=== PATIENT | male | born 1965 | race Caucasian/White ===

== ENCOUNTER 2017-05-04 10:45 | Outpatient (RCR) | payer BC, MEDICARE, SELFPAY ==
[2017-04-13 00:47] VITALS: BP 74/56; PULSE 83; RESP 18; TEMP 36.3; BMI 22.4
--- NOTE | 2017-04-29 13:41 | WC ---
Call Received from [facility] (Andree) patient is using a 'Butt paste' over excoriated/irritated area. Original Order was for duoderm/gauze. Nurse reports the area is 'clearing-up'. A request for physician order to use this preparation. [employer] Operator contacted regarding same.
[2017-05-04 11:17] VITALS: BP 99/62; PULSE 77; RESP 18; TEMP 36.4; BMI 22.4
--- NOTE | 2017-05-04 15:17 | PN.PCM_ITS ---
Type of Wound Date of Service: 05/04/17 Chief Complaint: Right ischial pressure sore, Stage IV. History of Wound: Surgery 01/22/17 - Excision right ischial pressure sore, Stage IV, with partial ostectomy for osteomyelitis. Wound care - VAC. Operative culture - soft tisue, Corynebacterium striatum, Corynebacterium amycolatum/xer, and Anaerobic cocci, and the bone, Corynebacterium striatum and Anaerobic cocci. He was treated with Doxycycline perioperatively. Flagyl was added and he finished them. He was also placed on Diflucan because of his propensity to yeast infections from antibiotics and has finished them. Pathology - negative for osteomyelitis. Prealbumin from 01/23/17 was 15.8. Encourage nutritional supplementation with protein to help the healing process. CT Pelvis from 01/16/17 - osteomyelitis cannot be excluded. Today he denies any fever. His appetite is good. Progress of Wound: Improved. - Physical Exam Vital Signs Temp Pulse Resp BP 97.5 F L 77 18 99/62 05/04/17 11:17 05/04/17 11:17 05/04/17 11:17 05/04/17 11:17 Wound Measurements and Assessment WC - Nurse 1 - General Ulcer Measurement Start: 04/29/17 13:41 Freq: Status: Active Protocol: Activity Type Activity Date Activity User E-Sign Co-Sign Detail Recorded Client Recorded Date Recorded By Document 05/04/17 11:17 [facility] [id number] 05/04/17 11:30 [facility] 05/04/17 11:17 Wound Center Nurse 1 [Ulcer Assessment Protocol: SHAKA.WD.LOC] #1 RT ISCHIUM -Combined with other wound No -Current Size (cm) - Length 3 -Current Size (cm) - Width 7.4 -Current Size (cm) - Depth 0.9 -Total Square Cm 22.2 -Date of Last Picture (Recall this 05/04/17 field) -Photo Taken Yes -Epithelialization Small 1-33% -Tunneling Yes -Tunneling Position (O'clock) 12 -Tunneling Distance (cm) 1.7 -Undermining/Tunneling No -Circular Undermining No -Exudate Amt Medium (34-66%) -Exudate Type Sanguineous -Wound Margin Distinct, Outline Attached -Granulation Amt Large (67-100%) -Granulation Quality Red -Slough/Fibrin No -Necrosis Amt None Present (0 %) -Texture (Elizabeth-wound Skin Appearance) Scarring -Moisture (Elizabeth-wound Skin Appearance Dry/Scaly ) -Color (Elizabeth-wound Skin Appearance) Assessed -Temperature (Elizabeth-wound Skin No Abnormality Appearance) (Pt Warm) -Tenderness on Palpation (Elizabeth-wound No Skin Appearance) -Ulcer Cleansing Wound Cleanser -Foul Odor after Cleansing No -Anesthetic Used 4% Lidocaine Solution - Nurse 2 - General Ulcer CM Notes Start: 04/29/17 13:41 Freq: Status: Active Protocol: Activity Type Activity Date Activity User E-Sign Co-Sign Detail Recorded Client Recorded Date Recorded By Document 05/04/17 12:28 [id number] 05/04/17 12:29 05/04/17 12:28 Wound Center Nurse 2 [Procedure/Treatment] -Time 12:28 -Correct Patient Yes -Correct Side, Site, Position Yes -Correct Procedure Yes -Procedure Performed Yes -Type of Procedure Debridement -Clinical Debridement Muscle -Post Debridement Size (cm) - Length 3.0 -Post Debridement Size (cm) - Width 7.5 -Post Debridement Size (cm) - Depth 1.0 -Total Square Cm 22.50 -Wound/Ulcer Outcome Not Healed -Ulcer Cleansing Rinsed/ Irrigated with Saline -Foul Odor after Cleansing No -Bioengineered Tissue No -Cetacaine [place] No -Bleeding Controlled with Pressure -Treatment Response Procedure Tolerated Well [See Physician Procedure note for Specifics] Pain Scale: 0-10 Numeric [Pain] -Is Patient Pain Free? Yes Debridement Note Post-Debridement Measurements/Treatment - Nurse 2 - General Ulcer CM Notes Start: 04/29/17 13:41 Freq: Status: Active Protocol: Activity Type Activity Date Activity User E-Sign Co-Sign Detail Recorded Client Recorded Date Recorded By Document 05/04/17 12:28 [id number] 05/04/17 12:29 05/04/17 12:28 Wound Center Nurse 2 #1 RT ISCHIUM -Time 12:28 -Correct Patient Yes -Correct Side, Site, Position Yes -Correct Procedure Yes -Procedure Performed Yes -Type of Procedure Debridement -Clinical Debridement Muscle -Post Debridement Size (cm) - Length 3.0 -Post Debridement Size (cm) - Width 7.5 -Post Debridement Size (cm) - Depth 1.0 -Total Square Cm 22.50 -Wound/Ulcer Outcome Not Healed -Ulcer Cleansing Rinsed/ Irrigated with Saline -Foul Odor after Cleansing No -Bioengineered Tissue No -Cetacaine [place] No -Bleeding Controlled with Pressure -Treatment Response Procedure Tolerated Well Pain Scale: 0-10 Numeric Is Patient Pain Free? Yes Wound debrided: #1 Right ischial area. Laterality: Right Wound Grade/Stage: IV. Type of Debridement: Excisional debridement Anesthesia Used: 4% Lidocaine Solution Depth: Down to and including healthy tissue, in the subcutaneous layer, to muscle Percentage of wound debrided: 100 Instrument Used: 7mm curette Tissue Removed: subcutaneous tissue and muscle. Severity: Fat Layer Exposed - muscle is exposed. Amount of bleeding with debridement: Mild Bleeding Controlled with: Pressure Patient tolerated procedure well Assessment/Plan Assessment: 1. Right ischial pressure sore, stage IV. 2. Paraplegia. 3. History of osteomyelitis. 4. s/p excision right ischial pressure sore, Stage IV, with partial ostectomy for osteomyelitis. Plan: Continue the VAC to be changed three times per week at 150 mmHg continuous suction. He has finished the Doxycycline and the Flagyl from the operative cultures. He finished the Diflucan. Pathology was negative for osteomyelitis. Prealbumin from 01/23/17 was 15.8. Encourage nutritional supplementation with protein to help the healing process. Discussed with the patient about timing for possible wound closure with a myocutaneous flap. It would require 6 weeks of bedrest. He will think about the surgery and let me know. Patient needs a specialized cushion for his wheelchair. It is an alternative airwave cushion which helps with and is critical for avoiding pressure injury. It is being evaluated by the [employer]. Followup 3 weeks.
== END 2017-05-13 23:59 ==
LOC: WC 10:45
PROVIDERS: Family Provider Preventive Medicine Occupational Medicine; PCP Preventive Medicine Occupational Medicine; Visit Provider Surgery
DX: L89.214 Pressure ulcer of right hip, stage 4 (principal); G82.20 Paraplegia, unspecified
CPT/HCPCS: 11043; 11046; 97605

== ENCOUNTER 2017-06-08 11:15 | Outpatient (RCR) | payer BC, MEDICARE, SELFPAY ==
[2017-05-04 11:17] VITALS: BP 99/62
[2017-05-14 00:36] VITALS: PULSE 77; RESP 18; TEMP 36.4
[2017-05-25 10:46] VITALS: RESP 16; TEMP 36.5; BMI 22.4
--- NOTE | 2017-05-25 16:35 | PCM.WC.PN ---
Type of Wound Date of Service: 05/25/17 Chief Complaint: Right ischial pressure sore, Stage IV. History of Wound: Surgery 01/22/17 - Excision right ischial pressure sore, Stage IV, with partial ostectomy for osteomyelitis. Wound care - VAC. Operative culture - soft tisue, Corynebacterium striatum, Corynebacterium amycolatum/xer, and Anaerobic cocci, and the bone, Corynebacterium striatum and Anaerobic cocci. He was treated with Doxycycline perioperatively. Flagyl was added and he finished them. He was also placed on Diflucan because of his propensity to yeast infections from antibiotics and has finished them. Pathology - negative for osteomyelitis. Prealbumin from 01/23/17 was 15.8. Encourage nutritional supplementation with protein to help the healing process. CT Pelvis from 01/16/17 - osteomyelitis cannot be excluded. Today he denies any fever. His appetite is good. Progress of Wound: Improved. - Physical Exam Vital Signs Temp Pulse Resp BP 97.7 F L 77 16 99/62 05/25/17 10:46 05/14/17 00:36 05/25/17 10:46 05/04/17 11:17 Wound Measurements and Assessment - Nurse 1 - General Ulcer Measurement Start: 05/25/17 10:46 Freq: Status: Active Protocol: Activity Type Activity Date Activity User E-Sign Co-Sign Detail Recorded Client Recorded Date Recorded By Document 05/25/17 10:46 [facility] [id number] 05/25/17 11:07 [facility] 05/25/17 10:46 Wound Center Nurse 1 [Ulcer Assessment Protocol: SHAKA.WD.LOC] #1 RT ISCHIUM -Combined with other wound No -Current Size (cm) - Length 6.4 -Current Size (cm) - Width 2 -Current Size (cm) - Depth 1.8 -Total Square Cm 12.8 -Photo Taken No -Epithelialization Small 1-33% -Tunneling No -Undermining/Tunneling No -Exudate Amt Medium (34-66%) -Exudate Type Serosanguineous -Wound Margin Distinct, Outline Attached -Granulation Amt Large (67-100%) -Granulation Quality Red -Slough/Fibrin No -Necrosis Amt None Present (0 %) -Texture (Elizabeth-wound Skin Appearance) Scarring -Moisture (Elizabeth-wound Skin Appearance Assessed ) -Color (Elizabeth-wound Skin Appearance) Assessed -Temperature (Elizabeth-wound Skin No Abnormality Appearance) (Pt Warm) -Tenderness on Palpation (Elizabeth-wound No Skin Appearance) -Ulcer Cleansing Rinsed/ Irrigated with Saline -Foul Odor after Cleansing No -Anesthetic Used 4% Lidocaine Solution SHAKA - Nurse 2 - General Ulcer CM Notes Start: 05/25/17 10:46 Freq: Status: Active Protocol: Activity Type Activity Date Activity User E-Sign Co-Sign Detail Recorded Client Recorded Date Recorded By Document 05/25/17 11:23 [id number] 05/25/17 11:24 05/25/17 11:23 Wound Center Nurse 2 [Procedure/Treatment] -Time 11:23 -Correct Patient Yes -Correct Side, Site, Position Yes -Correct Procedure Yes -Procedure Performed Yes -Type of Procedure Debridement -Clinical Debridement Muscle -Post Debridement Size (cm) - Length 6.5 -Post Debridement Size (cm) - Width 2.0 -Post Debridement Size (cm) - Depth 1.8 -Total Square Cm 13.00 -Wound/Ulcer Outcome Not Healed -Ulcer Cleansing Rinsed/ Irrigated with Saline -Foul Odor after Cleansing No -Bioengineered Tissue No -Bleeding Controlled with Pressure -Treatment Response Procedure Tolerated Well [See Physician Procedure note for Specifics] Pain Scale: 0-10 Numeric [Pain] -Is Patient Pain Free? Yes Debridement Note Post-Debridement Measurements/Treatment - Nurse 2 - General Ulcer CM Notes Start: 05/25/17 10:46 Freq: Status: Active Protocol: Activity Type Activity Date Activity User E-Sign Co-Sign Detail Recorded Client Recorded Date Recorded By Document 05/25/17 11:23 [id number] 05/25/17 11:24 05/25/17 11:23 Wound Center Nurse 2 #1 RT ISCHIUM -Time 11:23 -Correct Patient Yes -Correct Side, Site, Position Yes -Correct Procedure Yes -Procedure Performed Yes -Type of Procedure Debridement -Clinical Debridement Muscle -Post Debridement Size (cm) - Length 6.5 -Post Debridement Size (cm) - Width 2.0 -Post Debridement Size (cm) - Depth 1.8 -Total Square Cm 13.00 -Wound/Ulcer Outcome Not Healed -Ulcer Cleansing Rinsed/ Irrigated with Saline -Foul Odor after Cleansing No -Bioengineered Tissue No -Bleeding Controlled with Pressure -Treatment Response Procedure Tolerated Well Pain Scale: 0-10 Numeric Is Patient Pain Free? Yes Wound debrided: #1 Right ischial area. Laterality: Right Wound Grade/Stage: IV. Type of Debridement: Excisional debridement Anesthesia Used: 4% Lidocaine Solution Depth: Down to and including healthy tissue, in the subcutaneous layer, to muscle Percentage of wound debrided: 100 Instrument Used: 7mm curette Tissue Removed: subcutaneous tissue and muscle. Severity: Fat Layer Exposed - muscle is exposed. Amount of bleeding with debridement: Mild Bleeding Controlled with: Pressure Patient tolerated procedure well Assessment/Plan Assessment: 1. Right ischial pressure sore, stage IV. 2. Paraplegia. 3. History of osteomyelitis. 4. s/p excision right ischial pressure sore, Stage IV, with partial ostectomy for osteomyelitis. Plan: Will change to Silver dressing changes daily and do a VAC holiday. He has finished the Doxycycline and the Flagyl from the operative cultures. He finished the Diflucan. Pathology was negative for osteomyelitis. Prealbumin from 01/23/17 was 15.8. Encourage nutritional supplementation with protein to help the healing process. Discussed with the patient about timing for possible wound closure with a myocutaneous flap. It would require 6 weeks of bedrest. He will think about the surgery and let me know. Followup 2 weeks. Because the ulcer continues to improve, will do the VAC holiday. In two weeks, if he is not having any trouble with the Silver dressing changes and the ulcer continues to show improvement, then will stop the VAC. Otherwise will restart the VAC.
[2017-06-08 11:46] VITALS: BP 95/64; PULSE 75; RESP 18; TEMP 37.4; BMI 22.4
--- NOTE | 2017-06-08 20:55 | PCM.WC.PN ---
Type of Wound Date of Service: 06/08/17 Chief Complaint: Right ischial pressure sore, Stage IV. History of Wound: Surgery 01/22/17 - Excision right ischial pressure sore, Stage IV, with partial ostectomy for osteomyelitis. Wound care - VAC. Operative culture - soft tisue, Corynebacterium striatum, Corynebacterium amycolatum/xer, and Anaerobic cocci, and the bone, Corynebacterium striatum and Anaerobic cocci. He was treated with Doxycycline perioperatively. Flagyl was added and he finished them. He was also placed on Diflucan because of his propensity to yeast infections from antibiotics and has finished them. Pathology - negative for osteomyelitis. Prealbumin from 01/23/17 was 15.8. Encourage nutritional supplementation with protein to help the healing process. CT Pelvis from 01/16/17 - osteomyelitis cannot be excluded. Today he denies any fever. His appetite is good. Progress of Wound: Improved. - Physical Exam Vital Signs Temp Pulse Resp BP 99.3 F H 75 18 95/64 06/08/17 11:46 06/08/17 11:46 06/08/17 11:46 06/08/17 11:46 Wound Measurements and Assessment WC - Nurse 1 - General Ulcer Measurement Start: 05/25/17 10:46 Freq: Status: Active Protocol: Activity Type Activity Date Activity User E-Sign Co-Sign Detail Recorded Client Recorded Date Recorded By Document 06/08/17 11:46 [id number] 06/08/17 11:49 06/08/17 11:46 Wound Center Nurse 1 [Ulcer Assessment] #1 RT ISCHIUM -Combined with other wound No -Current Size (cm) - Length 6.0 -Current Size (cm) - Width 3.0 -Current Size (cm) - Depth 2.0 -Total Square Cm 18.00 -Date of Last Picture (Recall this 06/08/17 field) -Photo Taken Yes -Epithelialization Small 1-33% -Tunneling No -Undermining/Tunneling No -Circular Undermining No -Classification - Thickness Full Thickness with Exposed Support Structure -Classification - Pressure Ulcer Stage 4 -Exudate Amt Large (67-100%) -Exudate Type Serosanguineous -Wound Margin Fibrotic Scar, Thickened Scar -Granulation Amt Large (67-100%) -Granulation Quality Red -Slough/Fibrin Yes -Necrosis Amt Small (1-33%) -Necrotic Tissue Type Adherent Slough -Structure Exposed Fascia Muscle Fat Layer Exposed -Texture (Elizabeth-wound Skin Appearance) Scarring -Moisture (Elizabeth-wound Skin Appearance No Abnormality ) -Color (Elizabeth-wound Skin Appearance) Erythema -Temperature (Elizabeth-wound Skin No Abnormality Appearance) (Pt Warm) -Tenderness on Palpation (Elizabeth-wound No Skin Appearance) -Ulcer Cleansing Rinsed/ Irrigated with Saline -Foul Odor after Cleansing No -Anesthetic Used 4% Lidocaine Solution [Edema Assessment] -Lower Limb Edema Present No WC - Nurse 2 - General Ulcer CM Notes Start: 05/25/17 10:46 Freq: Status: Active Protocol: Activity Type Activity Date Activity User E-Sign Co-Sign Detail Recorded Client Recorded Date Recorded By Document 06/08/17 12:10 [id number] 06/08/17 12:13 06/08/17 12:10 Wound Center Nurse 2 [Procedure/Treatment] #1 RT ISCHIUM -Time 12:11 -Correct Patient Yes -Correct Side, Site, Position Yes -Correct Procedure Yes -Procedure Performed Yes -Type of Procedure Debridement -Clinical Debridement Muscle -Post Debridement Size (cm) - Length 6.1 -Post Debridement Size (cm) - Width 3 -Post Debridement Size (cm) - Depth 2.0 -Total Square Cm 18.3 -Wound/Ulcer Outcome Not Healed -Ulcer Cleansing Rinsed/ Irrigated with Saline -Foul Odor after Cleansing No -Bioengineered Tissue No -Bleeding Controlled with Pressure -Treatment Response Procedure Tolerated Well [See Physician Procedure note for Specifics] Pain Scale: 0-10 Numeric [Pain] -Is Patient Pain Free? Yes Debridement Note Post-Debridement Measurements/Treatment - Nurse 2 - General Ulcer CM Notes Start: 05/25/17 10:46 Freq: Status: Active Protocol: Activity Type Activity Date Activity User E-Sign Co-Sign Detail Recorded Client Recorded Date Recorded By Document 05/25/17 11:23 [id number] 05/25/17 11:24 Document 06/08/17 12:10 [id number] 06/08/17 12:13 05/25/17 06/08/17 11:23 12:10 Wound Center Nurse 2 #1 RT ISCHIUM -Time 11:23 12:11 -Correct Patient Yes Yes -Correct Side, Site, Position Yes Yes -Correct Procedure Yes Yes -Procedure Performed Yes Yes -Type of Procedure Debridement Debridement -Clinical Debridement Subcutaneous Muscle -Post Debridement Size (cm) - Length 6.5 6.1 -Post Debridement Size (cm) - Width 2.0 3 -Post Debridement Size (cm) - Depth 1.8 2.0 -Total Square Cm 13.00 18.3 -Wound/Ulcer Outcome Not Healed Not Healed -Ulcer Cleansing Rinsed/ Rinsed/ Irrigated with Irrigated with Saline Saline -Foul Odor after Cleansing No No -Bioengineered Tissue No No -Bleeding Controlled with Pressure Pressure -Treatment Response Procedure Procedure Tolerated Well Tolerated Well Pain Scale: 0-10 Numeric Is Patient Pain Free? Yes Yes Wound debrided: #1 Right ischial area. Laterality: Right Wound Grade/Stage: IV. Type of Debridement: Excisional debridement Anesthesia Used: 4% Lidocaine Solution Depth: Down to and including healthy tissue, in the subcutaneous layer, to muscle Percentage of wound debrided: 100 Instrument Used: 7mm curette Tissue Removed: subcutaneous tissue and muscle. Severity: Fat Layer Exposed - muscle is exposed. Amount of bleeding with debridement: Mild Bleeding Controlled with: Pressure Patient tolerated procedure well Assessment/Plan Assessment: 1. Right ischial pressure sore, stage IV. 2. Paraplegia. 3. History of osteomyelitis. 4. s/p excision right ischial pressure sore, Stage IV, with partial ostectomy for osteomyelitis. Plan: The ulcer continues to improve. Continue Silver dressing changes daily and will stop the VAC. He has finished the Doxycycline and the Flagyl from the operative cultures. He finished the Diflucan. Pathology was negative for osteomyelitis. Prealbumin from 01/23/17 was 15.8. Encourage nutritional supplementation with protein to help the healing process. Discussed with the patient about timing for possible wound closure with a myocutaneous flap. It would require 6 weeks of bedrest. He will think about the surgery and let me know. Followup 3 weeks.
== END 2017-06-10 23:59 ==
LOC: WC 11:15
PROVIDERS: Family Provider Preventive Medicine Occupational Medicine; PCP Preventive Medicine Occupational Medicine; Visit Provider Surgery
DX: L89.214 Pressure ulcer of right hip, stage 4 (principal); Z86.19 Personal history of other infectious and parasitic diseases; G82.20 Paraplegia, unspecified
CPT/HCPCS: 11043

== ENCOUNTER → 2017-06-15 15:25 | Outpatient (CLI) | payer BC, MEDICARE, SELFPAY | PROVIDERS: Family Provider Preventive Medicine Occupational Medicine; PCP Preventive Medicine Occupational Medicine; Visit Provider Urology | DX: R30.0 Dysuria (principal); N31.9 Neuromuscular dysfunction of bladder, unspecified | CPT/HCPCS: 87086; 87088 ==

== ENCOUNTER 2017-07-06 11:10 | Outpatient (RCR) | payer BC, MEDICARE, SELFPAY ==
[2017-06-11 00:31] VITALS: BP 99/62; PULSE 75; RESP 18; TEMP 37.4; BMI 22.4
[2017-07-06 11:23] VITALS: BP 104/62; PULSE 74; RESP 16; TEMP 36.5; BMI 22.4
--- NOTE | 2017-07-06 22:18 | PCM.WC.PN ---
Type of Wound Date of Service: 07/06/17 Chief Complaint: Right ischial pressure sore, Stage IV. History of Wound: Surgery 01/22/17 - Excision right ischial pressure sore, Stage IV, with partial ostectomy for osteomyelitis. Wound care - Silver. Operative culture - soft tisue, Corynebacterium striatum, Corynebacterium amycolatum/xer, and Anaerobic cocci, and the bone, Corynebacterium striatum and Anaerobic cocci. He was treated with Doxycycline perioperatively. Flagyl was added and he finished them. He was also placed on Diflucan because of his propensity to yeast infections from antibiotics and has finished them. Pathology - negative for osteomyelitis. Prealbumin from 01/23/17 was 15.8. Encourage nutritional supplementation with protein to help the healing process. CT Pelvis from 01/16/17 - osteomyelitis cannot be excluded. Today he denies any fever. His appetite is good. Progress of Wound: Improved. - Physical Exam Vital Signs Temp Pulse Resp BP 97.7 F L 74 16 104/62 07/06/17 11:23 07/06/17 11:23 07/06/17 11:23 07/06/17 11:23 Debridement Note Post-Debridement Measurements/Treatment WC - Nurse 2 - General Ulcer CM Notes Start: 07/06/17 11:20 Freq: Status: Active Protocol: Activity Type Activity Date Activity User E-Sign Co-Sign Detail Recorded Client Recorded Date Recorded By Document 07/06/17 11:59 [id number] 07/06/17 12:00 07/06/17 11:59 Wound Center Nurse 2 #1 RT ISCHIUM -Time 11:59 -Correct Patient Yes -Correct Side, Site, Position Yes -Correct Procedure Yes -Procedure Performed Yes -Type of Procedure Debridement -Clinical Debridement Muscle -Post Debridement Size (cm) - Length 5 -Post Debridement Size (cm) - Width 2.4 -Post Debridement Size (cm) - Depth 0.1 -Total Square Cm 12.0 -Wound/Ulcer Outcome Not Healed -Ulcer Cleansing Rinsed/ Irrigated with Saline -Foul Odor after Cleansing No -Bioengineered Tissue No -Bleeding Controlled with Pressure -Treatment Response Procedure Tolerated Well Pain Scale: 0-10 Numeric Is Patient Pain Free? Yes Wound debrided: #1 Right ischial area. Laterality: Right Wound Grade/Stage: IV. Type of Debridement: Excisional debridement Anesthesia Used: 4% Lidocaine Solution Depth: Down to and including healthy tissue, in the subcutaneous layer, to muscle Percentage of wound debrided: 100 Instrument Used: 5mm curette, 7mm curette Tissue Removed: subcutaneous tissue. Severity: Fat Layer Exposed - muscle is exposed. Amount of bleeding with debridement: Mild Bleeding Controlled with: Pressure Patient tolerated procedure well Assessment/Plan Assessment: 1. Right ischial pressure sore, stage IV. 2. Paraplegia. 3. History of osteomyelitis. 4. s/p excision right ischial pressure sore, Stage IV, with partial ostectomy for osteomyelitis. Plan: The ulcer continues to improve. Continue Silver dressing changes daily as the VAC has been stopped. He has finished the Doxycycline and the Flagyl from the operative cultures. He finished the Diflucan. Pathology was negative for osteomyelitis. Prealbumin from 01/23/17 was 15.8. Encourage nutritional supplementation with protein to help the healing process. Discussed with the patient about timing for possible wound closure with a myocutaneous flap. It would require 6 weeks of bedrest. He will think about the surgery and let me know. Followup 3 weeks.
== END 2017-07-11 23:59 ==
LOC: WC 11:10
PROVIDERS: Family Provider Preventive Medicine Occupational Medicine; PCP Preventive Medicine Occupational Medicine; Visit Provider Surgery
DX: L89.214 Pressure ulcer of right hip, stage 4 (principal); G82.20 Paraplegia, unspecified
CPT/HCPCS: 11043

== ENCOUNTER 2017-07-27 08:45 | Outpatient (RCR) | payer BC, MEDICARE, SELFPAY ==
[2017-07-12 00:31] VITALS: BP 99/62; PULSE 74; RESP 16; TEMP 36.5; BMI 22.4
[2017-07-27 10:54] VITALS: BP 102/44; PULSE 88; RESP 16; TEMP 36.6; BMI 22.4
--- NOTE | 2017-07-27 23:08 | PCM.WC.PN ---
Type of Wound Date of Service: 07/27/17 Chief Complaint: Right ischial pressure sore, Stage IV. History of Wound: Surgery 01/22/17 - Excision right ischial pressure sore, Stage IV, with partial ostectomy for osteomyelitis. Wound care - VAC. Operative culture - soft tisue, Corynebacterium striatum, Corynebacterium amycolatum/xer, and Anaerobic cocci, and the bone, Corynebacterium striatum and Anaerobic cocci. He was treated with Doxycycline perioperatively. Flagyl was added and he finished them. He was also placed on Diflucan because of his propensity to yeast infections from antibiotics and has finished them. Pathology - negative for osteomyelitis. Prealbumin from 01/23/17 was 15.8. Encourage nutritional supplementation with protein to help the healing process. CT Pelvis from 01/16/17 - osteomyelitis cannot be excluded. Today he denies any fever. His appetite is good. Progress of Wound: Improved. - Physical Exam Vital Signs Temp Pulse Resp BP 97.8 F 88 16 102/44 L 07/27/17 10:54 07/27/17 10:54 07/27/17 10:54 07/27/17 10:54 Wound Measurements and Assessment WC - Nurse 1 - General Ulcer Measurement Start: 07/27/17 10:53 Freq: Status: Active Protocol: Activity Type Activity Date Activity User E-Sign Co-Sign Detail Recorded Client Recorded Date Recorded By Document 07/27/17 10:54 [facility] [id number] 07/27/17 11:11 [facility] 07/27/17 10:54 Wound Center Nurse 1 [Ulcer Assessment] #1 RT ISCHIUM -Combined with other wound No -Current Size (cm) - Length 5.8 -Current Size (cm) - Width 0.6 -Current Size (cm) - Depth 0.2 -Total Square Cm 3.48 -Date of Last Picture (Recall this 07/27/17 field) -Photo Taken Yes -Epithelialization Small 1-33% -Tunneling No -Undermining/Tunneling No -Circular Undermining No -Exudate Amt Medium (34-66%) -Exudate Type Serosanguineous -Wound Margin Distinct, Outline Attached -Granulation Amt Large (67-100%) -Granulation Quality Red -Slough/Fibrin No -Necrosis Amt None Present (0 %) -Texture (Elizabeth-wound Skin Appearance) Scarring -Moisture (Elizabeth-wound Skin Appearance Dry/Scaly ) -Color (Elizabeth-wound Skin Appearance) Assessed -Temperature (Elizabeth-wound Skin No Abnormality Appearance) (Pt Warm) -Tenderness on Palpation (Elizabeth-wound No Skin Appearance) -Ulcer Cleansing Rinsed/ Irrigated with Saline -Foul Odor after Cleansing No -Anesthetic Used 4% Lidocaine Solution - Nurse 2 - General Ulcer CM Notes Start: 07/27/17 10:53 Freq: Status: Active Protocol: Activity Type Activity Date Activity User E-Sign Co-Sign Detail Recorded Client Recorded Date Recorded By Document 07/27/17 11:49 [id number] 07/27/17 11:50 07/27/17 11:49 Wound Center Nurse 2 [Procedure/Treatment] -Time 11:49 -Correct Patient Yes -Correct Side, Site, Position Yes -Correct Procedure Yes -Procedure Performed Yes -Type of Procedure Debridement -Clinical Debridement Muscle -Post Debridement Size (cm) - Length 5.8 -Post Debridement Size (cm) - Width 1.7 -Post Debridement Size (cm) - Depth 0.3 -Total Square Cm 9.86 -Wound/Ulcer Outcome Not Healed -Ulcer Cleansing Rinsed/ Irrigated with Saline -Foul Odor after Cleansing No -Bioengineered Tissue No -Bleeding Controlled with Pressure -Treatment Response Procedure Tolerated Well [See Physician Procedure note for Specifics] Pain Scale: 0-10 Numeric [Pain] -Is Patient Pain Free? Yes Debridement Note Post-Debridement Measurements/Treatment - Nurse 2 - General Ulcer CM Notes Start: 07/27/17 10:53 Freq: Status: Active Protocol: Activity Type Activity Date Activity User E-Sign Co-Sign Detail Recorded Client Recorded Date Recorded By Document 07/27/17 11:49 [id number] 07/27/17 11:50 07/27/17 11:49 Wound Center Nurse 2 #1 RT ISCHIUM -Time 11:49 -Correct Patient Yes -Correct Side, Site, Position Yes -Correct Procedure Yes -Procedure Performed Yes -Type of Procedure Debridement -Clinical Debridement Muscle -Post Debridement Size (cm) - Length 5.8 -Post Debridement Size (cm) - Width 1.7 -Post Debridement Size (cm) - Depth 0.3 -Total Square Cm 9.86 -Wound/Ulcer Outcome Not Healed -Ulcer Cleansing Rinsed/ Irrigated with Saline -Foul Odor after Cleansing No -Bioengineered Tissue No -Bleeding Controlled with Pressure -Treatment Response Procedure Tolerated Well Pain Scale: 0-10 Numeric Is Patient Pain Free? Yes Wound debrided: #1 Right ischial area. Laterality: Right Wound Grade/Stage: IV. Type of Debridement: Excisional debridement Anesthesia Used: 4% Lidocaine Solution Depth: Down to and including healthy tissue, in the subcutaneous layer, to muscle, to bone - bone is palpable but not debrided. Percentage of wound debrided: 100 Instrument Used: 7mm curette Tissue Removed: subcutaneous tissue and muscle. Severity: Fat Layer Exposed - muscle is exposed. bone is palpable but not debrided. Amount of bleeding with debridement: Mild Bleeding Controlled with: Pressure Patient tolerated procedure well Assessment/Plan Assessment: 1. Right ischial pressure sore, stage IV. 2. Paraplegia. 3. History of osteomyelitis. 4. s/p excision right ischial pressure sore, Stage IV, with partial ostectomy for osteomyelitis. Plan: Continue the VAC to be changed three times per week at 150 mmHg continuous suction. He has finished the Doxycycline and the Flagyl from the operative cultures. He finished the Diflucan. Pathology was negative for osteomyelitis. Prealbumin from 01/23/17 was 15.8. Encourage nutritional supplementation with protein to help the healing process. Discussed with the patient about timing for possible wound closure with a myocutaneous flap. It would require 6 weeks of bedrest. He will think about the surgery and let me know. Patient needs a specialized cushion for his wheelchair. It is an alternative airwave cushion which helps with and is critical for avoiding pressure injury. It is being evaluated by the Insurance [employer]. Followup 3 weeks.
== END 2017-08-10 23:59 ==
LOC: WC 08:45
PROVIDERS: Family Provider Preventive Medicine Occupational Medicine; PCP Preventive Medicine Occupational Medicine; Visit Provider Surgery
DX: L89.214 Pressure ulcer of right hip, stage 4 (principal)
CPT/HCPCS: 11043

== ENCOUNTER 2017-08-17 10:10 | Outpatient (RCR) | payer BC, MEDICARE, SELFPAY ==
[2017-08-11 00:28] VITALS: BP 99/62; PULSE 88; RESP 16; TEMP 36.6; BMI 22.4
[2017-08-17 10:07] VITALS: BP 103/75; PULSE 88; RESP 16; TEMP 35.9; BMI 22.4
--- NOTE | 2017-08-17 21:42 | PN.PCM_ITS ---
Type of Wound Date of Service: 08/17/17 Chief Complaint: Right ischial pressure sore, Stage IV. History of Wound: Surgery 01/22/17 - Excision right ischial pressure sore, Stage IV, with partial ostectomy for osteomyelitis. Wound care - VAC. Operative culture - soft tisue, Corynebacterium striatum, Corynebacterium amycolatum/xer, and Anaerobic cocci, and the bone, Corynebacterium striatum and Anaerobic cocci. He was treated with Doxycycline perioperatively. Flagyl was added and he finished them. He was also placed on Diflucan because of his propensity to yeast infections from antibiotics and has finished them. Pathology - negative for osteomyelitis. Prealbumin from 01/23/17 was 15.8. Encourage nutritional supplementation with protein to help the healing process. CT Pelvis from 01/16/17 - osteomyelitis cannot be excluded. Today he denies any fever. His appetite is good. Progress of Wound: Improved. - Physical Exam Vital Signs Temp Pulse Resp BP 96.6 F L 88 16 103/75 08/17/17 10:07 08/17/17 10:07 08/17/17 10:07 08/17/17 10:07 Wound Measurements and Assessment WC - Nurse 1 - General Ulcer Measurement Start: 08/17/17 10:07 Freq: Status: Active Protocol: Activity Type Activity Date Activity User E-Sign Co-Sign Detail Recorded Client Recorded Date Recorded By Document 08/17/17 10:07 [facility] [id number] 08/17/17 10:19 [facility] 08/17/17 10:07 Wound Center Nurse 1 [Ulcer Assessment] #1 RT ISCHIUM -Combined with other wound No -Current Size (cm) - Length 6.5 -Current Size (cm) - Width 2.7 -Current Size (cm) - Depth 1.3 -Total Square Cm 17.55 -Date of Last Picture (Recall this 07/27/17 field) -Photo Taken No -Epithelialization Small 1-33% -Tunneling No -Undermining/Tunneling No -Circular Undermining No -Exudate Amt Large (67-100%) -Exudate Type Serosanguineous -Wound Margin Distinct, Outline Attached -Granulation Amt Large (67-100%) -Granulation Quality Red -Slough/Fibrin Yes -Necrosis Amt Small (1-33%) -Necrotic Tissue Type Adherent Slough -Texture (Elizabeth-wound Skin Appearance) Assessed -Moisture (Elizabeth-wound Skin Appearance Assessed ) Maceration Weeping -Color (Elizabeth-wound Skin Appearance) Assessed Palor -Temperature (Elizabeth-wound Skin No Abnormality Appearance) (Pt Warm) -Tenderness on Palpation (Elizabeth-wound Yes Skin Appearance) -Ulcer Cleansing Rinsed/ Irrigated with Saline -Foul Odor after Cleansing No -Anesthetic Used 4% Lidocaine Solution [Edema Assessment] -Lower Limb Edema Present No WC - Nurse 2 - General Ulcer CM Notes Start: 08/17/17 10:07 Freq: Status: Active Protocol: Activity Type Activity Date Activity User E-Sign Co-Sign Detail Recorded Client Recorded Date Recorded By Document 08/17/17 10:37 [facility] [id number] 08/17/17 10:39 [facility] 08/17/17 10:37 Wound Center Nurse 2 [Procedure/Treatment] #1 RT ISCHIUM -Time 10:38 -Correct Patient Yes -Correct Side, Site, Position Yes -Correct Procedure Yes -Procedure Performed Yes -Type of Procedure Debridement -Clinical Debridement Muscle -Post Debridement Size (cm) - Length 6.5 -Post Debridement Size (cm) - Width 2.8 -Post Debridement Size (cm) - Depth 1.3 -Total Square Cm 18.20 -Wound/Ulcer Outcome Not Healed -Ulcer Cleansing Rinsed/ Irrigated with Saline -Foul Odor after Cleansing No -Bioengineered Tissue No -Bleeding Controlled with Pressure -Treatment Response Procedure Tolerated Well [See Physician Procedure note for Specifics] Pain Scale: 0-10 Numeric [Pain] -Is Patient Pain Free? Yes Debridement Note Post-Debridement Measurements/Treatment - Nurse 2 - General Ulcer CM Notes Start: 08/17/17 10:07 Freq: Status: Active Protocol: Activity Type Activity Date Activity User E-Sign Co-Sign Detail Recorded Client Recorded Date Recorded By Document 08/17/17 10:37 JF [id number] 08/17/17 10:39 LIANE 08/17/17 10:37 Wound Center Nurse 2 #1 RT ISCHIUM -Time 10:38 -Correct Patient Yes -Correct Side, Site, Position Yes -Correct Procedure Yes -Procedure Performed Yes -Type of Procedure Debridement -Clinical Debridement Muscle -Post Debridement Size (cm) - Length 6.5 -Post Debridement Size (cm) - Width 2.8 -Post Debridement Size (cm) - Depth 1.3 -Total Square Cm 18.20 -Wound/Ulcer Outcome Not Healed -Ulcer Cleansing Rinsed/ Irrigated with Saline -Foul Odor after Cleansing No -Bioengineered Tissue No -Bleeding Controlled with Pressure -Treatment Response Procedure Tolerated Well Pain Scale: 0-10 Numeric Is Patient Pain Free? Yes Wound debrided: #1 Right ischial area. Laterality: Right Wound Grade/Stage: IV. Type of Debridement: Excisional debridement Anesthesia Used: 4% Lidocaine Solution Depth: Down to and including healthy tissue, in the subcutaneous layer, to muscle, to bone - bone is palpable but not debrided. Percentage of wound debrided: 100 Instrument Used: 7mm curette Tissue Removed: subcutaneous tissue and muscle. Severity: Fat Layer Exposed - muscle is exposed. bone is palpable but not debrided. Amount of bleeding with debridement: Mild Bleeding Controlled with: Pressure Patient tolerated procedure well Assessment/Plan Assessment: 1. Right ischial pressure sore, stage IV. 2. Paraplegia. 3. History of osteomyelitis. 4. s/p excision right ischial pressure sore, Stage IV, with partial ostectomy for osteomyelitis. Plan: Continue the VAC to be changed three times per week at 150 mmHg continuous suction. He has finished the Doxycycline and the Flagyl from the operative cultures. He finished the Diflucan. Pathology was negative for osteomyelitis. Prealbumin from 01/23/17 was 15.8. Encourage nutritional supplementation with protein to help the healing process. Discussed with the patient about timing for possible wound closure with a myocutaneous flap. It would require 6 weeks of bedrest. He will think about the surgery and let me know. Patient needs a specialized cushion for his wheelchair. It is an alternative airwave cushion which helps with and is critical for avoiding pressure injury. It is being evaluated by the Insurance [employer]. Followup 3 weeks.
== END 2017-09-10 23:59 ==
LOC: WC 10:10
PROVIDERS: Family Provider Preventive Medicine Occupational Medicine; PCP Preventive Medicine Occupational Medicine; Visit Provider Surgery
DX: L89.214 Pressure ulcer of right hip, stage 4 (principal); G82.20 Paraplegia, unspecified; Z98.890 Other specified postprocedural states
CPT/HCPCS: 11043

== ENCOUNTER 2017-09-14 15:49 | Outpatient (RCR) | payer BC, MEDICARE, SELFPAY ==
[2017-09-11 00:29] VITALS: BP 99/62; PULSE 88; RESP 16; TEMP 35.9; BMI 22.4
== END 2017-10-10 23:59 ==
LOC: WC 15:49
PROVIDERS: Family Provider Preventive Medicine Occupational Medicine; PCP Preventive Medicine Occupational Medicine; Visit Provider Surgery
DX: L89.214 Pressure ulcer of right hip, stage 4 (principal)
CPT/HCPCS: 11043; 11046

== ENCOUNTER → 2017-10-09 16:00 | Outpatient (CLI) | payer BC, MEDICARE, SELFPAY | PROVIDERS: Family Provider Preventive Medicine Occupational Medicine; PCP Preventive Medicine Occupational Medicine; Visit Provider Nurse Practitioner Adult Health | DX: N39.0 Urinary tract infection, site not specified (principal) | CPT/HCPCS: 87077; 87086; 87088; 87186 ==

== ENCOUNTER 2017-10-26 11:30 | Outpatient (RCR) | payer BC, MEDICARE, SELFPAY ==
[2017-10-12 12:05] VITALS: BP 84/58; PULSE 88; RESP 16; TEMP 36.6
--- NOTE | 2017-10-12 23:52 | PN.PCM_ITS ---
Type of Wound Date of Service: 10/12/17 Chief Complaint: Right ischial pressure sore, Stage IV. History of Wound: Surgery 01/22/17 - Excision right ischial pressure sore, Stage IV, with partial ostectomy for osteomyelitis. Wound care - Firbracol. Operative culture - soft tisue, Corynebacterium striatum, Corynebacterium amycolatum/xer, and Anaerobic cocci, and the bone, Corynebacterium striatum and Anaerobic cocci. He was treated with Doxycycline perioperatively. Flagyl was added and he finished them. He was also placed on Diflucan because of his propensity to yeast infections from antibiotics and has finished them. Pathology - negative for osteomyelitis. Prealbumin from 01/23/17 was 15.8. Encourage nutritional supplementation with protein to help the healing process. CT Pelvis from 01/16/17 - osteomyelitis cannot be excluded. Today he denies any fever. His appetite is good. Progress of Wound: Unchanged. - Physical Exam Vital Signs Temp Pulse Resp BP 97.8 F 88 16 84/58 L 10/12/17 12:05 10/12/17 12:05 10/12/17 12:05 10/12/17 12:05 Wound Measurements and Assessment WC - Nurse 1 - General Ulcer Measurement Start: 10/12/17 12:05 Freq: Status: Active Protocol: Activity Type Activity Date Activity User E-Sign Co-Sign Detail Recorded Client Recorded Date Recorded By Document 10/12/17 12:05 [id number] 10/12/17 12:12 10/12/17 12:05 Wound Center Nurse 1 [Ulcer Assessment] #1 RT ISCHIUM -Combined with other wound No -Current Size (cm) - Length 6.4 -Current Size (cm) - Width 2.4 -Current Size (cm) - Depth 1.1 -Total Square Cm 15.36 -Date of Last Picture (Recall this 10/12/17 field) -Photo Taken Yes -Tunneling No -Undermining/Tunneling No -Exudate Amt None Present (0 %) -Wound Margin Distinct, Outline Attached -Granulation Amt Medium (34-66%) -Granulation Quality Pale -Slough/Fibrin Yes -Necrosis Amt Medium (34-66%) -Necrotic Tissue Type Adherent Slough -Structure Exposed None/Limited to Skin Breakdown -Texture (Elizabeth-wound Skin Appearance) Assessed Scarring -Moisture (Elizabeth-wound Skin Appearance Assessed ) Maceration -Color (Elizabeth-wound Skin Appearance) No Abnormality -Temperature (Elizabeth-wound Skin No Abnormality Appearance) (Pt Warm) -Tenderness on Palpation (Elizabeth-wound No Skin Appearance) -Ulcer Cleansing Rinsed/ Irrigated with Saline -Foul Odor after Cleansing No -Anesthetic Used 4% Lidocaine Solution [Edema Assessment] -Lower Limb Edema Present NA - Nurse 2 - General Ulcer CM Notes Start: 10/12/17 12:05 Freq: Status: Active Protocol: Activity Type Activity Date Activity User E-Sign Co-Sign Detail Recorded Client Recorded Date Recorded By Document 10/12/17 13:00 [id number] 10/12/17 13:01 10/12/17 13:00 Wound Center Nurse 2 [Procedure/Treatment] #1 RT ISCHIUM -Time 13:01 -Correct Patient Yes -Correct Side, Site, Position Yes -Correct Procedure Yes -Procedure Performed Yes -Type of Procedure Debridement -Clinical Debridement Muscle -Post Debridement Size (cm) - Length 6.5 -Post Debridement Size (cm) - Width 2.5 -Post Debridement Size (cm) - Depth 1.1 -Total Square Cm 16.25 -Wound/Ulcer Outcome Not Healed -Ulcer Cleansing Rinsed/ Irrigated with Saline -Foul Odor after Cleansing No -Bioengineered Tissue No -Bleeding Controlled with Pressure -Treatment Response Procedure Tolerated Well [See Physician Procedure note for Specifics] Pain Scale: 0-10 Numeric [Pain] -Is Patient Pain Free? Yes Debridement Note Post-Debridement Measurements/Treatment - Nurse 2 - General Ulcer CM Notes Start: 10/12/17 12:05 Freq: Status: Active Protocol: Activity Type Activity Date Activity User E-Sign Co-Sign Detail Recorded Client Recorded Date Recorded By Document 10/12/17 13:00 JF [id number] 10/12/17 13:01 10/12/17 13:00 Wound Center Nurse 2 #1 RT ISCHIUM -Time 13:01 -Correct Patient Yes -Correct Side, Site, Position Yes -Correct Procedure Yes -Procedure Performed Yes -Type of Procedure Debridement -Clinical Debridement Muscle -Post Debridement Size (cm) - Length 6.5 -Post Debridement Size (cm) - Width 2.5 -Post Debridement Size (cm) - Depth 1.1 -Total Square Cm 16.25 -Wound/Ulcer Outcome Not Healed -Ulcer Cleansing Rinsed/ Irrigated with Saline -Foul Odor after Cleansing No -Bioengineered Tissue No -Bleeding Controlled with Pressure -Treatment Response Procedure Tolerated Well Pain Scale: 0-10 Numeric Is Patient Pain Free? Yes Wound debrided: #1 Right ischial area. Laterality: Right Wound Grade/Stage: IV. Type of Debridement: Excisional debridement Anesthesia Used: 4% Lidocaine Solution Depth: Down to and including healthy tissue, in the subcutaneous layer, to muscle, to bone - bone is palpable but not debrided. Percentage of wound debrided: 100 Instrument Used: 7mm curette Tissue Removed: subcutaneous tissue and muscle. Severity: Fat Layer Exposed - muscle is exposed. bone is palpable but not debrided. Amount of bleeding with debridement: Mild Bleeding Controlled with: Pressure Patient tolerated procedure well - A wound culture was obtained today. Assessment/Plan Assessment: 1. Right ischial pressure sore, stage IV. 2. Paraplegia. 3. History of osteomyelitis. 4. s/p excision right ischial pressure sore, Stage IV, with partial ostectomy for osteomyelitis. Plan: Continue Fibracol dressing changes daily. He has finished the Doxycycline and the Flagyl from the operative cultures. He finished the Diflucan. Another wound culture was done today. A positive culture will necessitate antibiotic therapy. Pathology was negative for osteomyelitis. Prealbumin from 01/23/17 was 15.8. Encourage nutritional supplementation with protein to help the healing process. Discussed with the patient about timing for possible wound closure with a myocutaneous flap. It would require 6 weeks of bedrest. He will think about the surgery and let me know. Patient needs a specialized cushion for his wheelchair. It is an alternative airwave cushion which helps with and is critical for avoiding pressure injury. It is being evaluated by the Insurance [employer]. Followup 2 weeks.
[2017-10-26 11:54] VITALS: BP 109/60; PULSE 97; RESP 16; TEMP 36
--- NOTE | 2017-10-26 23:57 | PCM.WC.PN ---
Type of Wound Date of Service: 10/26/17 Chief Complaint: Right ischial pressure sore, Stage IV. History of Wound: Surgery 01/22/17 - Excision right ischial pressure sore, Stage IV, with partial ostectomy for osteomyelitis. Wound care - Firbracol. Operative culture - soft tisue, Corynebacterium striatum, Corynebacterium amycolatum/xer, and Anaerobic cocci, and the bone, Corynebacterium striatum and Anaerobic cocci. He was treated with Doxycycline perioperatively. Flagyl was added and he finished them. He was also placed on Diflucan because of his propensity to yeast infections from antibiotics and has finished them. Recent wound culture from 10/12/17 showed Staphylococcus haemolyticus, Aerococcus viridans, and Gram positive etelvina. He was placed on Doxycycline and Augmentin. He states the antibiotics were making him sick. Pathology - negative for osteomyelitis. Prealbumin from 01/23/17 was 15.8. Encourage nutritional supplementation with protein to help the healing process. CT Pelvis from 01/16/17 - osteomyelitis cannot be excluded. Today he denies any fever. His appetite is good. Progress of Wound: Unchanged. - Physical Exam Vital Signs Temp Pulse Resp BP 96.8 F L 97 16 109/60 10/26/17 11:54 10/26/17 11:54 10/26/17 11:54 10/26/17 11:54 Wound Measurements and Assessment WC - Nurse 1 - General Ulcer Measurement Start: 10/12/17 12:05 Freq: Status: Active Protocol: Activity Type Activity Date Activity User E-Sign Co-Sign Detail Recorded Client Recorded Date Recorded By Document 10/26/17 11:54 [id number] 10/26/17 12:02 10/26/17 11:54 Wound Center Nurse 1 [Ulcer Assessment] #1 RT ISCHIUM -Combined with other wound No -Current Size (cm) - Length 7.9 -Current Size (cm) - Width 0.9 -Current Size (cm) - Depth 1.4 -Total Square Cm 7.11 -Photo Taken No -Epithelialization None Present -Tunneling Yes -Tunneling Position (O'clock) 5 -Tunneling Distance (cm) 6 -Undermining/Tunneling No -Circular Undermining No -Exudate Amt Large (67-100%) -Exudate Type Serosanguineous -Wound Margin Distinct, Outline Attached -Granulation Amt Small (1-33%) -Granulation Quality Isabella Red -Necrosis Amt None Present (0 %) -Necrotic Tissue Type Adherent Slough -Structure Exposed None/Limited to Skin Breakdown -Texture (Elizabeth-wound Skin Appearance) Assessed Scarring -Moisture (Elizabeth-wound Skin Appearance No Abnormality ) Assessed -Color (Elizabeth-wound Skin Appearance) No Abnormality Assessed -Temperature (Elizabeth-wound Skin No Abnormality Appearance) (Pt Warm) -Tenderness on Palpation (Elizabeth-wound No Skin Appearance) -Ulcer Cleansing Rinsed/ Irrigated with Saline -Foul Odor after Cleansing No -Anesthetic Used 5% Lidocaine Gel [Edema Assessment] -Lower Limb Edema Present NA WC - Nurse 2 - General Ulcer CM Notes Start: 10/12/17 12:05 Freq: Status: Active Protocol: Activity Type Activity Date Activity User E-Sign Co-Sign Detail Recorded Client Recorded Date Recorded By Document 10/26/17 13:17 [id number] 10/26/17 13:28 10/26/17 13:17 Wound Center Nurse 2 [Procedure/Treatment] #1 RT ISCHIUM -Time 13:17 -Correct Patient Yes -Correct Side, Site, Position Yes -Correct Procedure Yes -Procedure Performed Yes -Type of Procedure Debridement -Clinical Debridement Muscle -Post Debridement Size (cm) - Length 8.0 -Post Debridement Size (cm) - Width 1.0 -Post Debridement Size (cm) - Depth 1.4 -Total Square Cm 8.00 -Wound/Ulcer Outcome Not Healed -Ulcer Cleansing Rinsed/ Irrigated with Saline -Foul Odor after Cleansing No -Bioengineered Tissue No -Topical Lidocaine (%) 4 -Bleeding Controlled with Pressure -Treatment Response Procedure Tolerated Well [See Physician Procedure note for Specifics] Pain Scale: 0-10 Numeric [Pain] -Is Patient Pain Free? Yes Debridement Note Post-Debridement Measurements/Treatment - Nurse 2 - General Ulcer CM Notes Start: 10/12/17 12:05 Freq: Status: Active Protocol: Activity Type Activity Date Activity User E-Sign Co-Sign Detail Recorded Client Recorded Date Recorded By Document 10/12/17 13:00 [id number] 10/12/17 13:01 Document 10/26/17 13:17 [id number] 10/26/17 13:28 10/12/17 10/26/17 13:00 13:17 Wound Center Nurse 2 #1 RT ISCHIUM -Time 13:01 13:17 -Correct Patient Yes Yes -Correct Side, Site, Position Yes Yes -Correct Procedure Yes Yes -Procedure Performed Yes Yes -Type of Procedure Debridement Debridement -Clinical Debridement Muscle Muscle -Post Debridement Size (cm) - Length 6.5 8.0 -Post Debridement Size (cm) - Width 2.5 1.0 -Post Debridement Size (cm) - Depth 1.1 1.4 -Total Square Cm 16.25 8.00 -Wound/Ulcer Outcome Not Healed Not Healed -Ulcer Cleansing Rinsed/ Rinsed/ Irrigated with Irrigated with Saline Saline -Foul Odor after Cleansing No No -Bioengineered Tissue No No -Topical Lidocaine (%) 4 -Bleeding Controlled with Pressure Pressure -Treatment Response Procedure Procedure Tolerated Well Tolerated Well Pain Scale: 0-10 Numeric Is Patient Pain Free? Yes Yes Wound debrided: #1 Right ischial area. Laterality: Right Wound Grade/Stage: IV. Type of Debridement: Excisional debridement Anesthesia Used: 4% Lidocaine Solution Depth: Down to and including healthy tissue, in the subcutaneous layer, to muscle, to bone - bone is palpable but not debrided. Percentage of wound debrided: 100 Instrument Used: 7mm curette Tissue Removed: subcutaneous tissue and muscle. Severity: Fat Layer Exposed - muscle is exposed. bone is exposed but not debrided. Amount of bleeding with debridement: Mild Bleeding Controlled with: Pressure Patient tolerated procedure well Assessment/Plan Assessment: 1. Right ischial pressure sore, stage IV. 2. Paraplegia. 3. History of osteomyelitis. 4. s/p excision right ischial pressure sore, Stage IV, with partial ostectomy for osteomyelitis. Plan: Continue Fibracol dressing changes daily. He has finished the Doxycycline and the Flagyl from the operative cultures. He finished the Diflucan. Another wound culture was done on 10/12/17. It showed Staphylococcus haemolyticus, Aerococcus viridans, and Gram positive etelvina. He was started on Doxycycline and Augmentin. He states the antibiotics were making him sick and he stopped them. Recommend IV antibiotics. This will necessitate an operative excision. The bone is getting more palpable. Will schedule a CT Pelvis preop. Pathology was negative for osteomyelitis. Prealbumin from 01/23/17 was 15.8. Encourage nutritional supplementation with protein to help the healing process. Discussed with the patient about timing for possible wound closure with a myocutaneous flap. It would require 6 weeks of bedrest. He will think about the surgery and let me know. Right now he is agreeable to the operative excisional debridement at this time. Followup 3 weeks.
== END 2017-11-10 23:59 ==
LOC: WC 11:30
PROVIDERS: Family Provider Preventive Medicine Occupational Medicine; PCP Preventive Medicine Occupational Medicine; Visit Provider Surgery
DX: L89.214 Pressure ulcer of right hip, stage 4 (principal); G82.20 Paraplegia, unspecified; Z86.19 Personal history of other infectious and parasitic diseases
CPT/HCPCS: 11043; 87070; 87075; 87077; 87186; 87205

== ENCOUNTER → 2017-11-07 10:39 | Outpatient (CLI) | payer BC, MEDICARE, SELFPAY ==
--- NOTE | 2017-11-07 10:43 | CT_ITS ---
STUDY: CT PELVIS WITHOUT CONTRAST REASON FOR EXAM: Male, 52 years old. PRESSURE SORE RIGHT ISCHIUM STAGE IV RADIATION DOSAGE (If Supplied By Facility): CTDIvol = ( 25.83 ) mGy, DLP = ( 828.91 ) mGycm TECHNIQUE: Transaxial imaging of the pelvis was performed with oral contrast, and without intravenous administration of contrast material. Individualized dose optimization techniques were used for this CT. COMPARISON: 01/16/2017 FINDINGS: Normal urinary bladder. Normal visualized small intestine. Normal visualized colon. There is no pelvic fluid. There is no pelvic mass lesion or lymphadenopathy. Normal visualized pelvic arteries. Right buttocks and upper posterior thigh decubitus ulcer with granulation tissue and air pocket extending to the ischial tuberosity appear larger when compared to the previous study. There is osteosclerosis in the ischial tuberosity with irregular periosteal bone formation suggesting chronic osteomyelitis. CT/Pelvis without IV Contrast IMPRESSION: Right buttocks and upper posterior thigh decubitus ulcer with granulation tissue and air pocket extending to the ischial tuberosity appear larger when compared to the previous study. There is osteosclerosis in the ischial tuberosity with irregular periosteal bone formation suggesting chronic osteomyelitis. Electronically Signed: Fouzia Brenner MD at 10:50 EDT Tel , Service support ,
== END ==
PROVIDERS: Family Provider Preventive Medicine Occupational Medicine; PCP Preventive Medicine Occupational Medicine; Visit Provider Surgery
DX: L89.314 Pressure ulcer of right buttock, stage 4 (principal)
CPT/HCPCS: 72192

== ENCOUNTER 2017-11-17 06:29 | Day surgery (SDC) | payer BC, MEDICARE, SELFPAY ==
--- NOTE | 2017-11-16 12:17 | EKG12_ITS ---
Test Reason : PRE OP Blood Pressure : / mmHG Vent. Rate : 070 BPM Atrial Rate : 070 BPM P-R Int : 124 ms QRS Dur : 084 ms QT Int : 386 ms P-R-T Axes : 068 070 072 degrees QTc Int : 416 ms Normal sinus rhythm Normal ECG Confirmed by CHAY JACOBSON, RYLIE ([id number]), book or script editor SHAVON JOHNSON ([id number]) on 11/18/2017 11:00:16 AM Referred By: Addison Ken Confirmed By:RYLIE CARTWRIGHT MD
[2017-11-16 13:03] LABS: Hematocrit 40.6 % (40-54); Hemoglobin 13.6 g/dl (13.0-16.5); Mean Corp Hgb Conc 33.5 g/gl (32-36); Mean Corpuscular Hgb 27.9 pg (27.0-32.0); Mean Corpuscular Volume 83.2 fL (80-94); Mean Platelet Vol. 8.7 fl (6.2-12.0); Platelet Count 316 K/mm3 (150-450); RBC Distribution Width CV 13.7 % (11.6-14.6); RBC Distribution Width SD 41.3 fl (35.1-43.9); Red Blood Count 4.88 M/mm3 (4.6-6.2); Scan Indicated on CBC? Y/N NO; White Blood Count 9.4 K/mm3 (4.4-11.0)
[2017-11-16 13:14] LABS: Anion Gap 12 (5-15); BUN 23 mg/dL (7-18); BUN/Creat Ratio 56.5 RATIO (10-20); Calcium,Total 8.9 mg/dL (8.5-10.1); Chloride 109 mmol/L (98-107); Creatinine, Serum 0.41 mg/dL (0.70-1.30); EST Glomerular Filtration Rate 236 mL/min (>60); Est Glom Filt Rate - Afr Amer 286 mL/min (>60); Glucose 107 mg/dL (74-106); Potassium 3.9 mmol/L (3.5-5.1); Sodium Level 144 mmol/L (136-145)
[2017-11-17] VITALS (10 sets, daily range): BP systolic 86–135; BP diastolic 61–94; PULSE 70–104; RESP 14–18; TEMP 36.1–36.8; O2SAT 94–100; BMI 22.4
[2017-11-17] MEDS: Vancomycin IV 1,000 MG/200 ML BAG 200 MG IV (07:16)
--- NOTE | 2017-11-17 08:00 | PRES_PTH ---
PATIENT: ZORAIDA MOTA [place] [facility] [place][id number] AGE/SX: 52/M ROOM: RE11/17/[address]: Dr. Addison Ken MD : [id number] BED: DIS: 11/18/2017 SPEC #: [id number] RECD: 11/17/17 09:07 STATUS: BRIANNA RHONDA #: [id number] GREGORIA: 11/17/17 08:[address]: Addison Ken DEPT: SURGICAL PATHOLOGY RECD BY: Vidal Castillo ENTERED: 11/17/17 09:32 SP TYPE: PRESS SORE OTHR DR: MD Dr. Alexander Jose DO Tissues: A - Ischium, NOS B - Ischium, NOS Procedures: Decalcification bone/plaque Surgery Specimen Level IV HEADER OPERATION: Excision, pressure sore, partial ostectomy PRE-OP DIAGNOSIS: Right ischial pressure sore stage IV, paraplegia, history of osteomyelitis TISSUE SUBMITTED: A ? Right ischial pressure sore tissue, B - Right ischial pressure sore bone MICROSCOPIC DIAGNOSIS A. Right soft tissue ischial pressure sore: Focal ulceration, associated acute and chronic inflammation, granulation tissue reaction and reactive fibrosis. B. Right ischial bone, pressure sore: Pieces of bone with reactive changes, negative for acute osteomyelitis. ILDA:lucila 11/20/17 MICROSCOPIC DESCRIPTION Slides are reviewed. GROSS DESCRIPTION A - Received in fixative is one container labeled with the patient's name and designated right soft tissue ischial pressure sore. The specimen consists of an irregular piece of skin with underlying tissue measuring 4 x 1.5 x 1 cm. Also present in the container are detached pieces of camargo soft tissue measuring in aggregate 1 x 1 x 0.3 cm. The larger piece shows an extensive area of ulceration. Napper Grinder sections are submitted in two cassettes. B - Received in fixative is one container labeled with the patient's name and designated right ischial bone pressure sore. The specimen consists of multiple pieces of bone that in aggregate measure 2 x 1.5 x 0.4 cm. The entire specimen is submitted in one cassette after decalcification. / ILDA:lucila 11/17/17 TC:2 CPT: 37654 x2, 21674
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
--- NOTE | 2017-11-17 12:00 | CASEMGMT ---
RN DERRICK Face to Face with patient for initial transition planning/care coordination assessment. RN DERRICK introduced self and role at [facility]. Patient sitting in chair, alert and oriented, at bedside. Patient willing to participate in assessment and is able to answer all questions appropriately. Care providers, pharmacy, and demographics verified. See link attached. Patient wishes to discharge home with IV ATBs and HHC. [facility]. Referral sent to [facility] and they are able to accept the patient. Referral sent to [facility] to initiate IV ATB referral. Pt states he has no further needs or concerns at this time. CM to follow for discharge planning needs that may arise. Disposition Plan: Patient to discharge home with IV ATBs, HHC, family support, and follow-up plans in place.
--- NOTE | 2017-11-17 12:43 | NURSING ---
infant room teacher called at this time, aware of order for PICC line. Will call with an estimated time the nurse will arrive.
--- NOTE | 2017-11-17 12:55 | NURSING ---
Emma quinonez [facility] called, the nurse will be here between [id number] for PICC line placement.
--- NOTE | 2017-11-17 16:50 | PCM.RX.CS ---
Consult Pharmacy has been consulted to manage selected antiobiotic: Vancomycin Type of Consult: New start Suspected Infection: Osteomyelitis Prior Doses of Antibiotics Received/Current Regimen: Vancomycin 1000mg x1 Preop 11/17/17 Labs: Sodium 144 mmol/L (136-145) 11/16/17 12:05 Potassium 3.9 mmol/L (3.5-5.1) 11/16/17 12:05 Chloride 109 mmol/L (98-107) H 11/16/17 12:05 Carbon Dioxide 23.0 mmol/L (21.0-32.0) 11/16/17 12:05 Anion Gap 12 (5-15) 11/16/17 12:05 BUN 23 mg/dL (7-18) H 11/16/17 12:05 Creatinine 0.41 mg/dL (0.70-1.30) L 11/16/17 12:05 Est GFR (MDRD) Af Amer 286 mL/min (>60) 11/16/17 12:05 Est GFR (MDRD) Non-Af 236 mL/min (>60) 11/16/17 12:05 BUN/Creatinine Ratio 56.5 RATIO (10-20) H 11/16/17 12:05 Glucose 107 mg/dL (74-106) H 11/16/17 12:05 Microbiology: Microbiology 11/17/17 08:30 Bone - Ischium Gram Stain - Final 11/17/17 08:30 Tissue - Ischium Gram Stain - Final Weight used for dosin kg Estimated Creatinine Clearance: 100ml/min Goal Trough: 15-20 mcg/mL Pharmacy Plan for Drug Dosing: Recommend Vancomycin 750mg IV q8h starting on 11/17/17 at 1500. Est trough of 15-20. Draw trough level before the 4th dose Pharmacy Service will continue to monitor and adjust dosing as required. Follow-Up Labs: Trough Vancomycin Labs to be done on [date and time ordered]: Trough level 11/18/17 at 0630
--- NOTE | 2017-11-17 16:53 | PHA.PHARE_ITS ---
Consult Pharmacy has been consulted to manage selected antiobiotic: Vancomycin Type of Consult: New start Suspected Infection: Osteomyelitis Prior Doses of Antibiotics Received/Current Regimen: Vancomycin 1000mg x1 Preop 11/17/17 Labs: Sodium 144 mmol/L (136-145) 11/16/17 12:05 Potassium 3.9 mmol/L (3.5-5.1) 11/16/17 12:05 Chloride 109 mmol/L (98-107) H 11/16/17 12:05 Carbon Dioxide 23.0 mmol/L (21.0-32.0) 11/16/17 12:05 Anion Gap 12 (5-15) 11/16/17 12:05 BUN 23 mg/dL (7-18) H 11/16/17 12:05 Creatinine 0.41 mg/dL (0.70-1.30) L 11/16/17 12:05 Est GFR (MDRD) Af Amer 286 mL/min (>60) 11/16/17 12:05 Est GFR (MDRD) Non-Af 236 mL/min (>60) 11/16/17 12:05 BUN/Creatinine Ratio 56.5 RATIO (10-20) H 11/16/17 12:05 Glucose 107 mg/dL (74-106) H 11/16/17 12:05 Microbiology: Microbiology 11/17/17 08:30 Bone - Ischium Gram Stain - Final 11/17/17 08:30 Tissue - Ischium Gram Stain - Final Weight used for dosin kg Estimated Creatinine Clearance: 100ml/min Goal Trough: 15-20 mcg/mL Pharmacy Plan for Drug Dosing: Recommend Vancomycin 750mg IV q8h starting on 11/17/17 at 1500. Est trough of 15- 20. Draw trough level before the 4th dose Pharmacy Service will continue to monitor and adjust dosing as required. Follow-Up Labs: Trough Vancomycin Labs to be done on [date and time ordered]: Trough level 11/18/17 at 0630
[2017-11-17] MEDS: Lactated Ringers 1,000 ML 60 ML IV (18:05)
[2017-11-18 02:00] VITALS: BP 109/69; PULSE 104; RESP 16; TEMP 36.8; O2SAT 96
[2017-11-18 06:50] LABS: Hematocrit 37.7 % (40-54); Hemoglobin 12.4 g/dl (13.0-16.5); Mean Corp Hgb Conc 32.9 g/gl (32-36); Mean Corpuscular Hgb 27.8 pg (27.0-32.0); Mean Corpuscular Volume 84.5 fL (80-94); Mean Platelet Vol. 8.6 fl (6.2-12.0); Platelet Count 252 K/mm3 (150-450); RBC Distribution Width CV 13.9 % (11.6-14.6); Red Blood Count 4.46 M/mm3 (4.6-6.2); White Blood Count 11.8 K/mm3 (4.4-11.0)
[2017-11-18 06:55] LABS: Erythrocyte Sedimentation Rate 29 mm/hr (0-20)
[2017-11-18 06:57] LABS: Scan Indicated on CBC? Y/N NO
[2017-11-18 07:04] LABS: Vancomycin, Trough Level 11.5 ug/mL (5.0-15.0)
[2017-11-18 07:12] LABS: Anion Gap 10 (5-15); BUN 13 mg/dL (7-18); Calcium,Total 8.2 mg/dL (8.5-10.1); Chloride 115 mmol/L (98-107); Creatinine, Serum 0.42 mg/dL (0.70-1.30); EST Glomerular Filtration Rate 228 mL/min (>60); Est Glom Filt Rate - Afr Amer 276 mL/min (>60); Estimated Creatinine Clearance 180.22 ml/min; Glucose 89 mg/dL (74-106); Potassium 4.5 mmol/L (3.5-5.1); Prealbumin 21.3 mg/dL (20.0-40.0); Sodium Level 145 mmol/L (136-145)
[2017-11-18 08:00] VITALS: BP 111/76; PULSE 90; RESP 18; TEMP 36.7; O2SAT 98
--- NOTE | 2017-11-18 08:01 | PCM.RX.CS ---
Consult Pharmacy has been consulted to manage selected antiobiotic: Vancomycin Type of Consult: Follow-up Suspected Infection: Osteomyelitis Prior Doses of Antibiotics Received/Current Regimen: Currently receiving vancomycin 750mg IV q8h with doses given last night 11/17/17 at 22:13 and this morning 11/18/17 at 07:07 Labs: Sodium 145 mmol/L (136-145) 11/18/17 06:28 Potassium 4.5 mmol/L (3.5-5.1) 11/18/17 06:28 Chloride 115 mmol/L (98-107) H 11/18/17 06:28 Carbon Dioxide 20.0 mmol/L (21.0-32.0) L 11/18/17 06:28 Anion Gap 10 (5-15) 11/18/17 06:28 BUN 13 mg/dL (7-18) 11/18/17 06:28 Creatinine 0.42 mg/dL (0.70-1.30) L 11/18/17 06:28 Est GFR (MDRD) Af Amer 276 mL/min (>60) 11/18/17 06:28 Est GFR (MDRD) Non-Af 228 mL/min (>60) 11/18/17 06:28 BUN/Creatinine Ratio 31.0 RATIO (10-20) H 11/18/17 06:28 Glucose 89 mg/dL (74-106) 11/18/17 06:28 Vancomycin Trough 11.5 ug/mL (5.0-15.0) 11/18/17 06:28 Microbiology: Microbiology 11/17/17 08:30 Bone - Ischium Gram Stain - Final 11/17/17 08:30 Tissue - Ischium Gram Stain - Final Estimated Creatinine Clearance: 180 ml/min Goal Trough: 15-20 mcg/mL Pharmacy Plan for Drug Dosing: Trough obtained at 06:28 before this morning's dose was 11.5. Since this was below goal range of 15-20, recommend to increase dose to 1000mg IV q8h and draw another trough level before the 4th dose. Pharmacy Service will continue to monitor and adjust dosing as required. Follow-Up Labs: Trough Vancomycin Labs to be done on [date and time ordered]: 11/19/17 14:30
[2017-11-18] MEDS: Ascorbic Acid 500 MG Tablet PO (08:40)
[2017-11-18] MEDS: Multivitamins,Therapeutic Tablet 1 TABLET PO (08:41)
[2017-11-18] MEDS: Tolterodine Tartrate 4 MG CAP.SA PO (08:41)
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
--- NOTE | 2017-11-18 10:30 | CASEMGMT ---
TATYANA MEZA received updated script from doctor Ken for updated Vancomycin 1000mg q 8 hours order. Script faxed to [facility] and arranged for IV ATBs to be delivered to patients home for 3 pm when next dose is due. TATYANA MEZA updated [facility] regarding setup up for 3 pm today. CM will continue to follow this patient and plan for and safe discharge.
--- NOTE | 2017-11-18 12:30 | CASEMGMT ---
TATYANA MEZA confirmed with [facility] that IV atb will be delivered to patient's home by 1600. TATYANA MEZA updated [facility] that meds will be delivered at 1600 and [facility] will see patient at 1630.
--- NOTE | 2017-11-18 12:47 | PCM.PN.SRG ---
Subjective: Postop #1 Patient is resting comfortably. - Physical Exam General: Alert, Oriented x3 HEENT: PERRLA, EOMI Oral: Moist Mucosa Neck: Supple Abdomen: Soft, Non-Distended Skin: Ulcer/ Wound - right ischial pressure sore stable. No bleeding seen. Wound redressed with Silver dressing. Neurological: Cranial nerves II-XII grossly intact Psych/Mental Status: Normal Affect, Appropriate Vital Signs Temp Pulse Resp BP Pulse Ox 98.1 F 90 18 111/76 98 11/18/17 08:00 11/18/17 08:00 11/18/17 08:00 11/18/17 08:00 11/18/17 08:00 Oxygen Delivery Method Room Air Weight: 135 lb 0.001 oz Body Mass Index (BMI) 22.4 Intake and Output for Last 24 Hours 11/16/17 11/17/17 11/18/17 23:59 23:59 23:59 Intake Total 1761 / 1761 2612 / 2612 Output Total 1200 / 1200 1525 / 1525 Balance 561 / 561 1087 / 1087 Microbiology Past 72 Hours 11/17/17 08:30 Gram Stain - Final Bone - Ischium Wound Culture - Preliminary Gram negative etelvina 11/17/17 08:30 Gram Stain - Final Tissue - Ischium Wound Culture - Preliminary Gram negative etelvina Pathology - pending. Laboratory Tests Past 24 Hrs 11/18/17 11/18/17 11/18/17 06:28 06:28 06:28 WBC 11.8 H RBC 4.46 L Hgb 12.4 L Hct 37.7 L MCV 84.5 MCH 27.8 MCHC 32.9 RDW 13.9 RDW Differential 42.0 Plt Count 252 MPV 8.6 ESR 29 H Sodium 145 Potassium 4.5 Chloride 115 H Carbon Dioxide 20.0 L Anion Gap 10 BUN 13 Creatinine 0.42 L Estim Creat Clear Calc 180.22 Est GFR (MDRD) Af Amer 276 Est GFR (MDRD) Non-Af 228 BUN/Creatinine Ratio 31.0 H Glucose 89 Calcium 8.2 L C-React Prot Ext Range 14.30 H Prealbumin 21.3 Vancomycin Trough 11.5 Medical Necessity - Tobacco Use Smoking Status: Never smoker Assessment/Plan All Active Problems Infected wound (Acute) Complicated wound infection (Acute) Paraplegic immobility syndrome (Acute) Decubitus ulcer of right ischium, stage 3 (Acute) 1. Right ischial pressure sore, stage IV. 2. Paraplegia. 3. Osteomyelitis. 4. s/p excision right ischial pressure sore, Stage IV, with partial ostectomy for osteomyelitis. Ulcer is stable. No bleeding seen. Redressed with Aquacel Silver. Operative culture showed Gram negative etelvina thus far. Will send home on Levaquin. Preop culture showed Staphylococcus haemolyticus, Methicillin resistant and Aerococcus viridans. A PICC line was placed. He will be discharged home on Vancomycin for at least 2 weeks. Will reassess at the Wound Center in a couple of weeks. He states he gets yeast infections with antibiotics. Wrote a script for Diflucan. Family will do daily dressing changes with Silver dressings. Prealbumin was 21.3. Encourage nutritional supplementation with protein to help the healing process. Followup at the Wound Center in a couple of weeks. Will discuss possible HBO treatments for his osteomyelitis.
[2017-11-18 12:57] VITALS: BP 95/64; PULSE 97; RESP 18; TEMP 36.7; O2SAT 94
--- NOTE | 2017-11-18 12:58 | DCINST_ITS ---
You will use the following diet at home:: No restrictions, Other - encourage nutrtitional supplementation with protein to help the healing process. May shower in (days): 2 Weight Bearing Status: - - may be up in chair as long as he does pressure releases every 10 minutes for 10 seconds. Call your doctor if your incision/area has: Continuous Slow Oozing, Sudden Increased Bleeding, Increased Pain/ Swelling, Increased Redness, Foul Smelling Discharge, Swelling at the incision site Call your doctor if you observe: Fever of 101 or Higher, Coldness, Increased Pain, Shortness of breath, Chest pain, Calf discomfort, Uncontrolled pain Change Dressing in (Days):: 1 - aquacel silver dressing daily. Cleanse incision/area with: Soap & Water - may cleanse the wound with soap and water at the time of the dressing change. Allergies/Adverse Reactions: Allergies linezolid [From Zyvox] Allergy (Verified 11/11/17 10:00) Hives Penicillins Allergy (Verified 11/11/17 10:00) Hives all tapes Allergy (Uncoded 11/11/17 10:00) blisters Medications to take at Discharge Ascorbic Acid [Vitamin C] 500 mg PO DAILY@0800 12/19/16 Cholecalciferol (Vitamin D3) [Vitamin D3] 1,000 unit PO DAILY 12/19/16 Multivitamin [Daily Multiple Vitamin] 1 each PO DAILY 12/19/16 Oxybutynin Chloride [Ditropan Xl] 15 mg PO DAILY 12/19/16 Methenamine Hippurate 1 gm PO DAILY 11/11/17 Bisacodyl [Dulcolax] 10 mg RECTAL QODAY 11/17/17 Ensure Clear 120 ml PO TIDCM liquid 11/18/17 Fluconazole [Diflucan] 100 mg PO DAILY #30 tab 11/18/17 Gauze Bandage [Bandage Roll] 1 ea TP .QDAILY #30 bandage 11/18/17 Gauze Bandage [Gauze Pads] 1 ea TP .QDAILY #60 bandage 11/18/17 Vancomycin IV 750 mg IV Q8H 40 Days #120 vial 11/18/17 Vancomycin IV [Vancomycin] 1,000 mg IV Q8H 40 Days #120 bag 11/18/17 levoFLOXacin tablet [Levaquin tablet] 500 mg PO DAILY #21 tab 11/18/17 The following prescriptions were given: Fluconazole [Diflucan] 100 mg PO DAILY #30 tab Gauze Bandage [Bandage Roll] 1 ea TP .QDAILY #30 bandage Gauze Bandage [Gauze Pads] 1 ea TP .QDAILY #60 bandage levoFLOXacin tablet [Levaquin tablet] 500 mg PO DAILY #21 tab Vancomycin IV 750 mg IV Q8H 40 Days #120 vial Vancomycin IV [Vancomycin] 1,000 mg IV Q8H 40 Days #120 bag Primary Care Physician: Alexander Mendoza DO [Primary Care Provider] - Test Results: Test results from this visit will be discussed in further detail at your follow- up appointment, if applicable. Please Follow Up With: Addison Ken MD When: wound center in two weeks. Call [phone]. Proposed Discharge Date: 11/18/17
== END 2017-11-18 14:03 | disposition home health service (06) ==
LOC: SDC 06:30 → AC 06:31 → MS3 09:33
PROVIDERS: Family Provider Preventive Medicine Occupational Medicine; PCP Preventive Medicine Occupational Medicine; Visit Provider Surgery
PROC: (CPT 15946; principal; 2017-11-17 07:45)
DX: L89.214 Pressure ulcer of right hip, stage 4 (principal); G82.20 Paraplegia, unspecified; B96.89 Other specified bacterial agents as the cause of diseases classified elsewhere
CPT/HCPCS: 15946; 36415; 36569; 80048; 80202; 84134; 85027; 85652; 86140; 87070; 87075; 87077; 87102; 87186; 87205; 87206; 88305; 88311; 93005; 97802; J7050; J7120; A4216; J2405

== ENCOUNTER → 2017-11-29 11:08 | Outpatient (CLI) | payer BC, MEDICARE, SELFPAY ==
[2017-11-29 11:29] LABS: Erythrocyte Sedimentation Rate 40 mm/hr (0-20); Hematocrit 36.9 % (40-54); Hemoglobin 11.6 g/dl (13.0-16.5); Mean Corp Hgb Conc 31.4 g/gl (32-36); Mean Corpuscular Hgb 26.7 pg (27.0-32.0); Mean Corpuscular Volume 84.8 fL (80-94); Mean Platelet Vol. 8.4 fl (6.2-12.0); Platelet Count 235 K/mm3 (150-450); RBC Distribution Width CV 13.4 % (11.6-14.6); RBC Distribution Width SD 41.5 fl (35.1-43.9); Red Blood Count 4.35 M/mm3 (4.6-6.2); Scan Indicated on CBC? Y/N NO; White Blood Count 8.7 K/mm3 (4.4-11.0)
[2017-11-29 11:41] LABS: ALB/GLOB Ratio 0.8 RATIO (0.9-2.4); AST(SGOT) 15 U/L (15-37); Alanine Aminotransfer ALT/SGPT 26 U/L (16-61); Albumin, Serum 2.9 g/dL (3.2-5.0); Alkaline Phosphatase 79 U/L (45-117); Anion Gap 11 (5-15); BUN 21 mg/dL (7-18); BUN/Creat Ratio 39.2 RATIO (10-20); Calcium,Total 8.5 mg/dL (8.5-10.1); Chloride 109 mmol/L (98-107); Creatinine, Serum 0.54 mg/dL (0.70-1.30); EST Glomerular Filtration Rate 172 mL/min (>60); Est Glom Filt Rate - Afr Amer 208 mL/min (>60); Globulin 3.6 g/dL (2.2-4.2); Glucose 97 mg/dL (74-106); Potassium 3.8 mmol/L (3.5-5.1); Protein, Total 6.5 g/dL (6.4-8.2); Sodium Level 145 mmol/L (136-145); Vancomycin, Trough Level 22.4 ug/mL (5.0-15.0)
== END ==
PROVIDERS: Family Provider Preventive Medicine Occupational Medicine; PCP Preventive Medicine Occupational Medicine; Visit Provider Surgery
DX: L08.9 Local infection of the skin and subcutaneous tissue, unspecified (principal)
CPT/HCPCS: 36415; 80053; 80202; 85027; 85652; 86140

== ENCOUNTER 2017-11-30 11:45 | Outpatient (RCR) | payer BC, MEDICARE, SELFPAY ==
[2017-11-11 01:15] VITALS: BP 109/60; PULSE 97; RESP 16; TEMP 36
[2017-11-16 10:31] VITALS: BP 110/69; PULSE 87; RESP 18; TEMP 35.1
--- NOTE | 2017-11-16 17:12 | PCM.WC.PN ---
Type of Wound Date of Service: 11/16/17 Chief Complaint: Right ischial pressure sore, Stage IV. History of Wound: Surgery 01/22/17 - Excision right ischial pressure sore, Stage IV, with partial ostectomy for osteomyelitis. Wound care - Firbracol. Operative culture - soft tisue, Corynebacterium striatum, Corynebacterium amycolatum/xer, and Anaerobic cocci, and the bone, Corynebacterium striatum and Anaerobic cocci. He was treated with Doxycycline perioperatively. Flagyl was added and he finished them. He was also placed on Diflucan because of his propensity to yeast infections from antibiotics and has finished them. Recent wound culture from 10/12/17 showed Staphylococcus haemolyticus, Aerococcus viridans, and Gram positive etelvina. He was placed on Doxycycline and Augmentin. He states the antibiotics were making him sick. Pathology - negative for osteomyelitis. Prealbumin from 01/23/17 was 15.8. Encourage nutritional supplementation with protein to help the healing process. CT Pelvis was done on 11/07/17. It showed right buttocks and upper posterior thigh decubitus ulcer with granulation tissue and air pocket extending to the ischial tuberosity appear larger when compared to the previous study. There is osteosclerosis in the ischial tuberosity with irregular periosteal bone formation suggesting chronic osteomyelitis.. Today he denies any fever. His appetite is good. He has some questions for the surgery which is scheduled for tomorrow 11/17/17. Progress of Wound: Unchanged. - Physical Exam Vital Signs Temp Pulse Resp BP 95.1 F L 87 18 110/69 11/16/17 10:31 11/16/17 10:31 11/16/17 10:31 11/16/17 10:31 Wound Measurements and Assessment WC - Nurse 1 - General Ulcer Measurement Start: 11/16/17 10:30 Freq: Status: Active Protocol: Activity Type Activity Date Activity User E-Sign Co-Sign Detail Recorded Client Recorded Date Recorded By Document 11/16/17 10:31 DL [id number] 11/16/17 10:34 DL 11/16/17 10:31 Wound Center Nurse 1 [Ulcer Assessment] #1 RT ISCHIUM -Current Size (cm) - Length 6.3 -Current Size (cm) - Width 1.8 -Current Size (cm) - Depth 0.8 -Total Square Cm 11.34 -Photo Taken No -Exudate Amt Medium (34-66%) -Exudate Type Serosanguineous -Wound Margin Thickened & Rolled Under -Granulation Amt Large (67-100%) -Granulation Quality Red -Necrosis Amt Small (1-33%) -Necrotic Tissue Type Adherent Slough -Structure Exposed N/A -Texture (Elizabeth-wound Skin Appearance) Scarring -Moisture (Elizabeth-wound Skin Appearance No Abnormality ) -Color (Elizabeth-wound Skin Appearance) No Abnormality -Temperature (Elizabeth-wound Skin No Abnormality Appearance) (Pt Warm) -Ulcer Cleansing Rinsed/ Irrigated with Saline -Foul Odor after Cleansing No -Anesthetic Used 4% Lidocaine Solution - Nurse 2 - General Ulcer CM Notes Start: 11/16/17 10:30 Freq: Status: Active Protocol: Activity Type Activity Date Activity User E-Sign Co-Sign Detail Recorded Client Recorded Date Recorded By Document 11/16/17 11:19 [id number] 11/16/17 11:21 11/16/17 11:19 Wound Center Nurse 2 [Procedure/Treatment] -Time 11:20 -Correct Patient Yes -Correct Side, Site, Position Yes -Correct Procedure Yes -Procedure Performed Yes -Type of Procedure Debridement -Clinical Debridement Muscle -Post Debridement Size (cm) - Length 6 -Post Debridement Size (cm) - Width 1.8 -Post Debridement Size (cm) - Depth 0.8 -Total Square Cm 10.8 -Wound/Ulcer Outcome Not Healed -Ulcer Cleansing Rinsed/ Irrigated with Saline -Foul Odor after Cleansing No -Bioengineered Tissue No -Bleeding Controlled with Pressure -Treatment Response Procedure Tolerated Well [See Physician Procedure note for Specifics] Pain Scale: 0-10 Numeric [Pain] -Is Patient Pain Free? Yes Debridement Note Post-Debridement Measurements/Treatment - Nurse 2 - General Ulcer CM Notes Start: 11/16/17 10:30 Freq: Status: Active Protocol: Activity Type Activity Date Activity User E-Sign Co-Sign Detail Recorded Client Recorded Date Recorded By Document 11/16/17 11:19 JF [id number] 11/16/17 11:21 11/16/17 11:19 Wound Center Nurse 2 #1 RT ISCHIUM -Time 11:20 -Correct Patient Yes -Correct Side, Site, Position Yes -Correct Procedure Yes -Procedure Performed Yes -Type of Procedure Debridement -Clinical Debridement Muscle -Post Debridement Size (cm) - Length 6 -Post Debridement Size (cm) - Width 1.8 -Post Debridement Size (cm) - Depth 0.8 -Total Square Cm 10.8 -Wound/Ulcer Outcome Not Healed -Ulcer Cleansing Rinsed/ Irrigated with Saline -Foul Odor after Cleansing No -Bioengineered Tissue No -Bleeding Controlled with Pressure -Treatment Response Procedure Tolerated Well Pain Scale: 0-10 Numeric Is Patient Pain Free? Yes Wound debrided: #1 Right ischial area. Laterality: Right Wound Grade/Stage: IV. Type of Debridement: Excisional debridement Anesthesia Used: 4% Lidocaine Solution Depth: Down to and including healthy tissue, in the subcutaneous layer, to muscle, to bone - bone is palpable but not debrided. Percentage of wound debrided: 100 Instrument Used: 7mm curette Tissue Removed: subcutaneous tissue and muscle. Severity: Fat Layer Exposed - msucle is exposed. bone is palpable but not debrided. Amount of bleeding with debridement: Mild Bleeding Controlled with: Pressure Patient tolerated procedure well Assessment/Plan Assessment: 1. Right ischial pressure sore, stage IV. 2. Paraplegia. 3. History of osteomyelitis. 4. s/p excision right ischial pressure sore, Stage IV, with partial ostectomy for osteomyelitis. Plan: Continue Fibracol dressing changes daily. He has finished the Doxycycline and the Flagyl from the operative cultures. He finished the Diflucan. Another wound culture was done on 10/12/17. It showed Staphylococcus haemolyticus, Aerococcus viridans, and Gram positive etelvina. He was started on Doxycycline and Augmentin. He states the antibiotics were making him sick and he stopped them. Recommend IV antibiotics. This will necessitate an operative excision. The bone is getting more palpable. A CT Pelvis was done on 11/07/17. It was suspicious for osteomyelitis. Initial Pathology was negative for osteomyelitis. Prealbumin from 01/23/17 was 15.8. Encourage nutritional supplementation with protein to help the healing process. His operativef excision of the presure sore is scheduled for tomorrow 11/17/17. He had preop questions that were answered personally to his satisfactioin. Discussed with the patient about timing for possible wound closure with a myocutaneous flap. It would require 6 weeks of bedrest. He will think about the flap surgery and let me know after he sees how much healing can occur after his operative excison of the pressure sore tomorrow. Followup 2 weeks. Patient was informed of the risks and complications of the procedure including alternatives to surgery. These were discussed with him personally. He voices understanding and wishes to proceed.
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
[2017-11-30 13:43] VITALS: BP 89/55; PULSE 88; RESP 16; TEMP 36.8
--- NOTE | 2017-11-30 22:49 | PCM.WC.PN ---
Type of Wound Date of Service: 11/30/17 Chief Complaint: Right ischial pressure sore, Stage IV. History of Wound: Surgery 11/17/17 - Excision right ischial pressure sore, Stage IV, with partial ostectomy for osteomyelitis. Wound care - Silver. Operative culture, bone and soft tissue - Enterobacter cloacae. Preop culture showed Staphylococcus haemolyticus and Aerococcus viridans. He was discharged on Vancomycin, and Levaquin, and Diflucan. Pathology - negative for osteomyelitis. Prealbumin from 11/18/17 was 21.3. Encourage nutritional supplementation with protein to help the healing process. CT Pelvis was done on 11/07/17. It showed right buttocks and upper posterior thigh decubitus ulcer with granulation tissue and air pocket extending to the ischial tuberosity appear larger when compared to the previous study. There is osteosclerosis in the ischial tuberosity with irregular periosteal bone formation suggesting chronic osteomyelitis.. Today he denies fever. His appetite is good. Progress of Wound: Recent surgery from 11/17/17. - Physical Exam Vital Signs Temp Pulse Resp BP 98.2 F 88 16 89/55 L 11/30/17 13:43 11/30/17 13:43 11/30/17 13:43 11/30/17 13:43 Wound Measurements and Assessment WC - Nurse 1 - General Ulcer Measurement Start: 11/16/17 10:30 Freq: Status: Active Protocol: Activity Type Activity Date Activity User E-Sign Co-Sign Detail Recorded Client Recorded Date Recorded By Document 11/30/17 13:43 [facility] [id number] 11/30/17 13:51 [facility] 11/30/17 13:43 Wound Center Nurse 1 [Ulcer Assessment] #1 RT ISCHIUM- POST OP -Combined with other wound No -Current Size (cm) - Length 8 -Current Size (cm) - Width 1.8 -Current Size (cm) - Depth 1.7 -Total Square Cm 14.4 -Date of Last Picture (Recall this 11/30/17 field) -Photo Taken Yes -Epithelialization None Present -Tunneling No -Undermining/Tunneling No -Circular Undermining No -Exudate Amt Large (67-100%) -Exudate Type Serosanguineous -Wound Margin Distinct, Outline Attached -Granulation Amt Large (67-100%) -Granulation Quality Red -Slough/Fibrin Yes -Necrosis Amt Small (1-33%) -Necrotic Tissue Type Adherent Slough -Structure Exposed Bone -Texture (Elizabeth-wound Skin Appearance) Scarring -Moisture (Elizabeth-wound Skin Appearance Assessed ) -Color (Elizabeth-wound Skin Appearance) Erythema -Temperature (Elizabeth-wound Skin No Abnormality Appearance) (Pt Warm) -Tenderness on Palpation (Elizabeth-wound No Skin Appearance) -Ulcer Cleansing Rinsed/ Irrigated with Saline -Foul Odor after Cleansing No -Anesthetic Used 4% Lidocaine Solution - Nurse 2 - General Ulcer CM Notes Start: 11/16/17 10:30 Freq: Status: Active Protocol: Activity Type Activity Date Activity User E-Sign Co-Sign Detail Recorded Client Recorded Date Recorded By Document 11/30/17 14:25 [id number] 11/30/17 14:26 11/30/17 14:25 Wound Center Nurse 2 [Procedure/Treatment] -Time 14:25 -Correct Patient Yes -Correct Side, Site, Position Yes -Correct Procedure Yes -Procedure Performed Yes -Type of Procedure Debridement -Clinical Debridement Muscle -Post Debridement Size (cm) - Length 8.1 -Post Debridement Size (cm) - Width 1.8 -Post Debridement Size (cm) - Depth 1.7 -Total Square Cm 14.58 -Wound/Ulcer Outcome Not Healed -Ulcer Cleansing Rinsed/ Irrigated with Saline -Foul Odor after Cleansing No -Bioengineered Tissue No -Bleeding Controlled with Pressure -Treatment Response Procedure Tolerated Well [See Physician Procedure note for Specifics] Pain Scale: 0-10 Numeric [Pain] -Is Patient Pain Free? Yes Debridement Note Post-Debridement Measurements/Treatment - Nurse 2 - General Ulcer CM Notes Start: 11/16/17 10:30 Freq: Status: Active Protocol: Activity Type Activity Date Activity User E-Sign Co-Sign Detail Recorded Client Recorded Date Recorded By Document 11/16/17 11:19 [id number] 11/16/17 11:21 Document 11/30/17 14:25 [id number] 11/30/17 14:26 11/16/17 11/30/17 11:19 14:25 Wound Center Nurse 2 #1 RT ISCHIUM- POST OP -Time 11:20 14:25 -Correct Patient Yes Yes -Correct Side, Site, Position Yes Yes -Correct Procedure Yes Yes -Procedure Performed Yes Yes -Type of Procedure Debridement Debridement -Clinical Debridement Muscle Muscle -Post Debridement Size (cm) - Length 6 8.1 -Post Debridement Size (cm) - Width 1.8 1.8 -Post Debridement Size (cm) - Depth 0.8 1.7 -Total Square Cm 10.8 14.58 -Wound/Ulcer Outcome Not Healed Not Healed -Ulcer Cleansing Rinsed/ Rinsed/ Irrigated with Irrigated with Saline Saline -Foul Odor after Cleansing No No -Bioengineered Tissue No No -Bleeding Controlled with Pressure Pressure -Treatment Response Procedure Procedure Tolerated Well Tolerated Well Pain Scale: 0-10 Numeric Is Patient Pain Free? Yes Yes Wound debrided: #1 Right ischial area. Laterality: Right Wound Grade/Stage: IV. Type of Debridement: Excisional debridement Anesthesia Used: 4% Lidocaine Solution Depth: Down to and including healthy tissue, in the subcutaneous layer, to muscle, to bone - bone is exposed but not debrided. Percentage of wound debrided: 100 Instrument Used: 7mm curette Tissue Removed: subcutaneous tissue and muscle. Severity: Fat Layer Exposed - muscle is exposed. bone is exposed but not debrided. Amount of bleeding with debridement: Mild Bleeding Controlled with: Pressure Patient tolerated procedure well Assessment/Plan Assessment: 1. Right ischial pressure sore, stage IV. 2. Paraplegia. 3. History of osteomyelitis. 4. s/p excision right ischial pressure sore, Stage IV, with partial ostectomy for osteomyelitis. Plan: Continue Silver dressing changes daily. His operative cultures in soft tissue and bone showed Enterobacter cloacae. Combined with the preop cultures that showed Staphylococcus haemolyticus and Aerococcus viridans, he was discharged on Vancomycin, Levaquin, and Diflucan. A CT Pelvis was done on 11/07/17. It was suspicious for osteomyelitis. Pathology was negative for osteomyelitis. Prealbumin from 11/18/17 was 21.3. Encourage nutritional supplementation with protein to help the healing process. Followup 3 weeks.
== END 2017-12-11 23:59 ==
LOC: WC 11:45
PROVIDERS: Family Provider Preventive Medicine Occupational Medicine; PCP Preventive Medicine Occupational Medicine; Visit Provider Surgery
DX: L89.214 Pressure ulcer of right hip, stage 4 (principal); G82.20 Paraplegia, unspecified; Z86.19 Personal history of other infectious and parasitic diseases
CPT/HCPCS: 11043

== ENCOUNTER 2017-12-07 11:26 | Outpatient (RCR) | payer BC, MEDICARE, SELFPAY ==
[2017-11-23 15:55] LABS: Hematocrit 36.4 % (40-54); Hemoglobin 11.5 g/dl (13.0-16.5); Mean Corp Hgb Conc 31.6 g/gl (32-36); Mean Corpuscular Volume 85.4 fL (80-94); Mean Platelet Vol. 8.7 fl (6.2-12.0); Platelet Count 242 K/mm3 (150-450); RBC Distribution Width CV 13.9 % (11.6-14.6); RBC Distribution Width SD 43.5 fl (35.1-43.9); Red Blood Count 4.26 M/mm3 (4.6-6.2); Scan Indicated on CBC? Y/N NO; White Blood Count 9.5 K/mm3 (4.4-11.0)
[2017-11-23 16:01] LABS: Erythrocyte Sedimentation Rate 45 mm/hr (0-20)
[2017-11-23 16:07] LABS: Vancomycin, Trough Level 30.4 ug/mL (5.0-15.0)
[2017-11-23 16:08] LABS: ALB/GLOB Ratio 0.8 RATIO (0.9-2.4); AST(SGOT) 22 U/L (15-37); Alanine Aminotransfer ALT/SGPT 31 U/L (16-61); Albumin, Serum 2.9 g/dL (3.2-5.0); Alkaline Phosphatase 73 U/L (45-117); Anion Gap 12 (5-15); BUN 21 mg/dL (7-18); BUN/Creat Ratio 27.6 RATIO (10-20); Calcium,Total 8.4 mg/dL (8.5-10.1); Chloride 108 mmol/L (98-107); Creatinine, Serum 0.76 mg/dL (0.70-1.30); EST Glomerular Filtration Rate 115 mL/min (>60); Est Glom Filt Rate - Afr Amer 139 mL/min (>60); Globulin 3.5 g/dL (2.2-4.2); Glucose 142 mg/dL (74-106); Potassium 3.6 mmol/L (3.5-5.1); Protein, Total 6.4 g/dL (6.4-8.2); Sodium Level 144 mmol/L (136-145)
[2017-12-07 12:32] LABS: Hematocrit 39.5 % (40-54); Hemoglobin 12.9 g/dl (13.0-16.5); Mean Corp Hgb Conc 32.7 g/gl (32-36); Mean Corpuscular Hgb 27.4 pg (27.0-32.0); Mean Platelet Vol. 8.9 fl (6.2-12.0); Platelet Count 279 K/mm3 (150-450); RBC Distribution Width CV 13.7 % (11.6-14.6); RBC Distribution Width SD 41.8 fl (35.1-43.9); White Blood Count 7.4 K/mm3 (4.4-11.0)
[2017-12-07 12:34] LABS: Scan Indicated on CBC? Y/N NO
[2017-12-07 12:44] LABS: Vancomycin, Trough Level 13.6 ug/mL (5.0-15.0)
[2017-12-07 12:46] LABS: ALB/GLOB Ratio 0.9 RATIO (0.9-2.4); AST(SGOT) 12 U/L (15-37); Alanine Aminotransfer ALT/SGPT 23 U/L (16-61); Albumin, Serum 3.4 g/dL (3.2-5.0); Alkaline Phosphatase 94 U/L (45-117); Anion Gap 12 (5-15); BUN 27 mg/dL (7-18); Calcium,Total 8.6 mg/dL (8.5-10.1); Chloride 105 mmol/L (98-107); Creatinine, Serum 0.71 mg/dL (0.70-1.30); EST Glomerular Filtration Rate 124 mL/min (>60); Est Glom Filt Rate - Afr Amer 150 mL/min (>60); Globulin 3.7 g/dL (2.2-4.2); Glucose 164 mg/dL (74-106); Potassium 3.5 mmol/L (3.5-5.1); Protein, Total 7.1 g/dL (6.4-8.2); Sodium Level 142 mmol/L (136-145)
[2017-12-07 12:49] LABS: Erythrocyte Sedimentation Rate 34 mm/hr (0-20)
== END 2017-12-11 23:59 | disposition home health service (06) ==
LOC: HHLAB 11:26
PROVIDERS: Family Provider Preventive Medicine Occupational Medicine; PCP Preventive Medicine Occupational Medicine; Visit Provider Surgery
DX: L08.9 Local infection of the skin and subcutaneous tissue, unspecified (principal)
CPT/HCPCS: 80053; 80202; 85027; 85652; 86140

== ENCOUNTER 2017-12-28 11:45 | Outpatient (RCR) | payer BC, MEDICARE, SELFPAY ==
[2017-12-12 01:18] VITALS: BP 89/55; PULSE 88; RESP 16; TEMP 36.8
[2017-12-28 12:45] VITALS: BP 110/70; PULSE 83; RESP 16; TEMP 35.8
--- NOTE | 2017-12-28 22:57 | PN.PCM_ITS ---
Type of Wound Date of Service: 12/28/17 Chief Complaint: Right ischial pressure sore, Stage IV. History of Wound: Surgery 11/17/17 - Excision right ischial pressure sore, Stage IV, with partial ostectomy for osteomyelitis. Wound care - Silver. Operative culture, bone and soft tissue - Enterobacter cloacae. Preop culture showed Staphylococcus haemolyticus and Aerococcus viridans. He was discharged on Vancomycin, and Levaquin, and Diflucan. He has finished the Vancomycin. He is finishing the Levaquin. Will remove PICC line today. Pathology - negative for osteomyelitis. Prealbumin from 11/18/17 was 21.3. Encourage nutritional supplementation with protein to help the healing process. CT Pelvis was done on 11/07/17. It showed right buttocks and upper posterior thigh decubitus ulcer with granulation tissue and air pocket extending to the ischial tuberosity appear larger when compared to the previous study. There is osteosclerosis in the ischial tuberosity with irregular periosteal bone formation suggesting chronic osteomyelitis.. Today he denies fever. His appetite is good. It was noted according to his insurance carrier that he doesn't qualify for HBO treatments at this time. Progress of Wound: Improved. - Physical Exam Vital Signs Temp Pulse Resp BP 96.4 F L 83 16 110/70 12/28/17 12:45 12/28/17 12:45 12/28/17 12:45 12/28/17 12:45 Wound Measurements and Assessment WC - Nurse 1 - General Ulcer Measurement Start: 12/28/17 12:44 Freq: Status: Active Protocol: Activity Type Activity Date Activity User E-Sign Co-Sign Detail Recorded Client Recorded Date Recorded By Document 12/28/17 12:45 [facility] [id number] 12/28/17 12:54 [facility] 12/28/17 12:45 Wound Center Nurse 1 [Ulcer Assessment] #1 RT ISCHIUM- POST OP -Combined with other wound No -Current Size (cm) - Length 6 -Current Size (cm) - Width 2.8 -Current Size (cm) - Depth 1.7 -Total Square Cm 16.8 -Photo Taken No -Epithelialization Small 1-33% -Tunneling No -Undermining/Tunneling No -Circular Undermining No -Exudate Amt Large (67-100%) -Exudate Type Serosanguineous -Wound Margin Distinct, Outline Attached -Granulation Amt Large (67-100%) -Granulation Quality Red -Slough/Fibrin Yes -Necrosis Amt Small (1-33%) -Necrotic Tissue Type Adherent Slough -Texture (Elizabeth-wound Skin Appearance) Scarring -Moisture (Elizabeth-wound Skin Appearance Assessed ) -Color (Elizabeth-wound Skin Appearance) Assessed -Temperature (Elizabeth-wound Skin No Abnormality Appearance) (Pt Warm) -Tenderness on Palpation (Elizabeth-wound No Skin Appearance) -Ulcer Cleansing Wound Cleanser -Foul Odor after Cleansing No -Anesthetic Used 4% Lidocaine Solution 5% Lidocaine Gel - Nurse 2 - General Ulcer CM Notes Start: 12/28/17 12:44 Freq: Status: Active Protocol: Activity Type Activity Date Activity User E-Sign Co-Sign Detail Recorded Client Recorded Date Recorded By Document 12/28/17 13:12 [id number] 12/28/17 13:13 12/28/17 13:12 Wound Center Nurse 2 [Procedure/Treatment] -Time 13:13 -Correct Patient Yes -Correct Side, Site, Position Yes -Correct Procedure Yes -Procedure Performed Yes -Type of Procedure Debridement -Clinical Debridement Muscle -Post Debridement Size (cm) - Length 6.1 -Post Debridement Size (cm) - Width 2.8 -Post Debridement Size (cm) - Depth 1.7 -Total Square Cm 17.08 -Wound/Ulcer Outcome Not Healed -Ulcer Cleansing Rinsed/ Irrigated with Saline -Foul Odor after Cleansing No -Bioengineered Tissue No -Bleeding Controlled with Pressure -Treatment Response Procedure Tolerated Well [See Physician Procedure note for Specifics] Pain Scale: 0-10 Numeric [Pain] -Is Patient Pain Free? Yes Debridement Note Post-Debridement Measurements/Treatment - Nurse 2 - General Ulcer CM Notes Start: 12/28/17 12:44 Freq: Status: Active Protocol: Activity Type Activity Date Activity User E-Sign Co-Sign Detail Recorded Client Recorded Date Recorded By Document 12/28/17 13:12 JF [id number] 12/28/17 13:13 12/28/17 13:12 Wound Center Nurse 2 #1 RT ISCHIUM- POST OP -Time 13:13 -Correct Patient Yes -Correct Side, Site, Position Yes -Correct Procedure Yes -Procedure Performed Yes -Type of Procedure Debridement -Clinical Debridement Muscle -Post Debridement Size (cm) - Length 6.1 -Post Debridement Size (cm) - Width 2.8 -Post Debridement Size (cm) - Depth 1.7 -Total Square Cm 17.08 -Wound/Ulcer Outcome Not Healed -Ulcer Cleansing Rinsed/ Irrigated with Saline -Foul Odor after Cleansing No -Bioengineered Tissue No -Bleeding Controlled with Pressure -Treatment Response Procedure Tolerated Well Pain Scale: 0-10 Numeric Is Patient Pain Free? Yes Wound debrided: #1 Right ischial area. Laterality: Right Wound Grade/Stage: IV. Type of Debridement: Excisional debridement Anesthesia Used: 4% Lidocaine Solution Depth: Down to and including healthy tissue, in the subcutaneous layer, to muscle, to bone - bone is palpable but not exposed and not debrided. Percentage of wound debrided: 100 Instrument Used: 7mm curette Tissue Removed: subcutaneous tissue and muscle. Severity: Fat Layer Exposed - muscle is exposed. bone is palpable and not exposed and not debrided. Amount of bleeding with debridement: Mild Bleeding Controlled with: Pressure Patient tolerated procedure well Assessment/Plan Assessment: 1. Right ischial pressure sore, stage IV. 2. Paraplegia. 3. History of osteomyelitis. 4. s/p excision right ischial pressure sore, Stage IV, with partial ostectomy for osteomyelitis. Plan: Continue Silver dressing changes daily. His operative cultures in soft tissue and bone showed Enterobacter cloacae. Combined with the preop cultures that showed Staphylococcus haemolyticus and Aerococcus viridans, he was discharged on Vancomycin, Levaquin, and Diflucan. He has finished the Vancomycin and the PICC line was pulled today. He is finishing the Levaquin. A CT Pelvis was done on 11/07/17. It was suspicious for osteomyelitis. Pathology was negative for osteomyelitis. At this time the insurance carrier has denied his HBO treatments. Patient needs to wait 4 months with continued treatments (surgery, wound care, and antibiotics). Will repeat the CT at that time. If still suspicious for osteomyelitis, will reapply for HBO treatments for chronic refractory osteomyelitis. Prealbumin from 11/18/17 was 21.3. Encourage nutritional supplementation with protein to help the healing process. Followup 2 weeks to see Noemy, the Nurse Practitioner. Followup 3 weeks to see me.
== END 2018-01-10 23:59 ==
LOC: WC 11:45
PROVIDERS: Family Provider Preventive Medicine Occupational Medicine; PCP Preventive Medicine Occupational Medicine; Visit Provider Surgery
DX: L89.214 Pressure ulcer of right hip, stage 4 (principal); G82.20 Paraplegia, unspecified
CPT/HCPCS: 11043

== ENCOUNTER 2017-12-28 12:04 | Outpatient (RCR) | payer BC, MEDICARE, SELFPAY ==
[2017-12-15 17:35] LABS: Hematocrit 39.5 % (40-54); Hemoglobin 12.1 g/dl (13.0-16.5); Mean Corp Hgb Conc 30.6 g/gl (32-36); Mean Corpuscular Hgb 26.4 pg (27.0-32.0); Mean Corpuscular Volume 86.1 fL (80-94); Mean Platelet Vol. 8.9 fl (6.2-12.0); Platelet Count 219 K/mm3 (150-450); RBC Distribution Width CV 14.2 % (11.6-14.6); RBC Distribution Width SD 44.7 fl (35.1-43.9); Red Blood Count 4.59 M/mm3 (4.6-6.2); Scan Indicated on CBC? Y/N NO; White Blood Count 6.4 K/mm3 (4.4-11.0)
[2017-12-15 17:41] LABS: Vancomycin, Trough Level 13.6 ug/mL (5.0-15.0)
[2017-12-15 17:42] LABS: ALB/GLOB Ratio 1.1 RATIO (0.9-2.4); AST(SGOT) 15 U/L (15-37); Alanine Aminotransfer ALT/SGPT 19 U/L (16-61); Albumin, Serum 3.4 g/dL (3.2-5.0); Alkaline Phosphatase 86 U/L (45-117); Anion Gap 14 (5-15); BUN 20 mg/dL (7-18); BUN/Creat Ratio 32.5 RATIO (10-20); Calcium,Total 8.4 mg/dL (8.5-10.1); Chloride 108 mmol/L (98-107); Creatinine, Serum 0.62 mg/dL (0.70-1.30); EST Glomerular Filtration Rate 146 mL/min (>60); Est Glom Filt Rate - Afr Amer 177 mL/min (>60); Globulin 3.2 g/dL (2.2-4.2); Glucose 127 mg/dL (74-106); Potassium 3.5 mmol/L (3.5-5.1); Protein, Total 6.6 g/dL (6.4-8.2); Sodium Level 145 mmol/L (136-145)
[2017-12-15 17:51] LABS: Erythrocyte Sedimentation Rate 25 mm/hr (0-20)
[2017-12-21 13:34] LABS: Hematocrit 38.2 % (40-54); Hemoglobin 12.1 g/dl (13.0-16.5); Mean Corp Hgb Conc 31.7 g/gl (32-36); Mean Corpuscular Hgb 26.5 pg (27.0-32.0); Mean Corpuscular Volume 83.6 fL (80-94); Platelet Count 213 K/mm3 (150-450); RBC Distribution Width CV 13.8 % (11.6-14.6); RBC Distribution Width SD 42.2 fl (35.1-43.9); Red Blood Count 4.57 M/mm3 (4.6-6.2); White Blood Count 6.1 K/mm3 (4.4-11.0)
[2017-12-21 13:40] LABS: Scan Indicated on CBC? Y/N NO
[2017-12-21 13:51] LABS: AST(SGOT) 12 U/L (15-37); Alanine Aminotransfer ALT/SGPT 25 U/L (16-61); Albumin, Serum 3.4 g/dL (3.2-5.0); Alkaline Phosphatase 90 U/L (45-117); Anion Gap 12 (5-15); BUN 28 mg/dL (7-18); Calcium,Total 8.4 mg/dL (8.5-10.1); Chloride 106 mmol/L (98-107); Creatinine, Serum 0.57 mg/dL (0.70-1.30); EST Glomerular Filtration Rate 159 mL/min (>60); Est Glom Filt Rate - Afr Amer 193 mL/min (>60); Globulin 3.4 g/dL (2.2-4.2); Glucose 147 mg/dL (74-106); Potassium 3.6 mmol/L (3.5-5.1); Protein, Total 6.8 g/dL (6.4-8.2); Sodium Level 143 mmol/L (136-145); Vancomycin, Trough Level 11.4 ug/mL (5.0-15.0)
[2017-12-21 15:32] LABS: Erythrocyte Sedimentation Rate 29 mm/hr (0-20)
[2017-12-28 13:07] LABS: Hematocrit 39.2 % (40-54); Hemoglobin 12.2 g/dl (13.0-16.5); Mean Corp Hgb Conc 31.1 g/gl (32-36); Mean Corpuscular Volume 83.4 fL (80-94); Mean Platelet Vol. 8.9 fl (6.2-12.0); Platelet Count 244 K/mm3 (150-450); RBC Distribution Width CV 13.7 % (11.6-14.6); RBC Distribution Width SD 41.7 fl (35.1-43.9); White Blood Count 6.4 K/mm3 (4.4-11.0)
[2017-12-28 13:08] LABS: Scan Indicated on CBC? Y/N NO
[2017-12-28 13:13] LABS: Erythrocyte Sedimentation Rate 21 mm/hr (0-20)
[2017-12-28 13:24] LABS: ALB/GLOB Ratio 1.1 RATIO (0.9-2.4); AST(SGOT) 15 U/L (15-37); Alanine Aminotransfer ALT/SGPT 24 U/L (16-61); Albumin, Serum 3.4 g/dL (3.2-5.0); Alkaline Phosphatase 82 U/L (45-117); Anion Gap 11 (5-15); BUN 25 mg/dL (7-18); BUN/Creat Ratio 39.1 RATIO (10-20); Calcium,Total 8.6 mg/dL (8.5-10.1); Chloride 105 mmol/L (98-107); Creatinine, Serum 0.64 mg/dL (0.70-1.30); EST Glomerular Filtration Rate 140 mL/min (>60); Est Glom Filt Rate - Afr Amer 169 mL/min (>60); Globulin 3.2 g/dL (2.2-4.2); Glucose 149 mg/dL (74-106); Potassium 3.7 mmol/L (3.5-5.1); Protein, Total 6.6 g/dL (6.4-8.2); Sodium Level 142 mmol/L (136-145)
== END 2018-01-10 23:59 ==
LOC: HHLAB 12:04
PROVIDERS: Family Provider Preventive Medicine Occupational Medicine; PCP Preventive Medicine Occupational Medicine; Visit Provider Surgery
DX: L89.314 Pressure ulcer of right buttock, stage 4 (principal); G82.20 Paraplegia, unspecified; G62.9 Polyneuropathy, unspecified
CPT/HCPCS: 80053; 80202; 85027; 85652; 86140

== ENCOUNTER 2018-02-08 11:30 | Outpatient (RCR) | payer BC, MEDICARE, SELFPAY ==
[2018-01-11 01:00] VITALS: BP 110/70; PULSE 83; RESP 16; TEMP 35.8
[2018-01-11 10:52] VITALS: BP 83/51; PULSE 99; RESP 16; TEMP 35.5
--- NOTE | 2018-01-14 11:26 | PCM.WC.PN ---
(1) Right ischial pressure sore, stage 4 Status: Chronic Code(s): L89.314 - Pressure ulcer of right buttock, stage 4 (2) Paraplegia Status: Chronic Code(s): G82.20 - Paraplegia, unspecified (3) Osteomyelitis of right side of pelvis Status: Chronic Code(s): M86.9 - Osteomyelitis, unspecified (4) Infected wound Status: Acute Code(s): T14.8XXA - Other injury of unspecified body region, initial encounter; L08.9 - Local infection of the skin and subcutaneous tissue, unspecified Type of Wound Date of Service: 01/11/18 Chief Complaint: Right ischial pressure sore, Stage IV. History of Wound: Surgery 11/17/2017?excision right ischial pressure sore, stage IV, with partial ostectomy for osteomyelitis. Wound care?silver. Operative culture, bone and soft tissue?Enterobacter cloacae. Preop culture showed Staphylococcus hemolyticus Aerococcus viridans. He was discharged on Vancomycin, and Levaquin, and Diflucan. Pathology?negative for osteomyelitis. Pre-albumin from 11/18/2017 was 21.3. Encourage nutritional supplementation with protein to help with the healing process. CT pelvis was done on 11/07/17. It showed right buttocks and upper posterior thigh decubitus ulcer with granulation tissue and air pocket extending to the ischial tuberosity appear larger when compared to the previous study. There is osteosclerosis in the ischial tuberosity with irregular periosteal bone formation suggesting chronic osteomyelitis. Today denies fever, but states he has been sweating which is not typical of him except when he has an infection. States his appetite is good. Progress of Wound: Improved. - Physical Exam Vital Signs Temp Pulse Resp BP 95.9 F L 99 16 83/51 L 01/11/18 10:52 01/11/18 10:52 01/11/18 10:52 01/11/18 10:52 General: Alert, Oriented x3 HEENT: Atraumatic Cardiovascular: Regular rate Extremities: No edema, Capillary Refill Less than 3 Seconds, No Calf Tenderness Skin: Ulcer/ Wound - Right ischial pressure sore, stage IV Wound Measurements and Assessment WC - Nurse 1 - General Ulcer Measurement Start: 01/11/18 10:51 Freq: Status: Active Protocol: Activity Type Activity Date Activity User E-Sign Co-Sign Detail Recorded Client Recorded Date Recorded By Document 01/11/18 10:52 ANAHI [id number] 01/11/18 11:07 ANAHI 01/11/18 10:52 Wound Center Nurse 1 [Ulcer Assessment] #1 RT ISCHIUM- POST OP -Combined with other wound No -Current Size (cm) - Length 6.9 -Current Size (cm) - Width 2.2 -Current Size (cm) - Depth 1.8 -Total Square Cm 15.18 -Date of Last Picture (Recall this 01/11/18 field) -Photo Taken Yes -Tunneling Yes -Tunneling Position (O'clock) 12 -Tunneling Distance (cm) 3.6 -Circular Undermining No -Classification - Thickness Full Thickness with Exposed Support Structure -Classification - Pressure Ulcer Stage 4 -Change in Wound Grade/Stage No Query Text:If change please identify the Stage/Grade in the comment (ie. S2 G3) -Exudate Amt Large (67-100%) -Exudate Type Serosanguineous -Wound Margin Distinct, Outline Attached -Granulation Amt Large (67-100%) -Granulation Quality Red -Slough/Fibrin Yes -Necrosis Amt None Present (0 %) -Necrotic Tissue Type Adherent Slough -Structure Exposed Bone -Texture (Elizabeth-wound Skin Appearance) No Abnormality -Moisture (Elizabeth-wound Skin Appearance Maceration ) -Color (Elizabeth-wound Skin Appearance) No Abnormality -Temperature (Elizabeth-wound Skin No Abnormality Appearance) (Pt Warm) -Tenderness on Palpation (Elizabeth-wound No Skin Appearance) -Ulcer Cleansing Rinsed/ Irrigated with Saline -Foul Odor after Cleansing No WC - Nurse 2 - General Ulcer CM Notes Start: 01/11/18 10:51 Freq: Status: Active Protocol: Activity Type Activity Date Activity User E-Sign Co-Sign Detail Recorded Client Recorded Date Recorded By Document 01/11/18 11:37 LIANE [id number] 01/11/18 11:38 LIANE 01/11/18 11:37 Wound Center Nurse 2 [Procedure/Treatment] -Time 11:37 -Correct Patient Yes -Correct Side, Site, Position Yes -Correct Procedure Yes -Procedure Performed Yes -Type of Procedure Debridement -Clinical Debridement Subcutaneous -Post Debridement Size (cm) - Length 6.8 -Post Debridement Size (cm) - Width 2.1 -Post Debridement Size (cm) - Depth 1.9 -Total Square Cm 14.28 -Wound/Ulcer Outcome Not Healed -Ulcer Cleansing Rinsed/ Irrigated with Saline -Foul Odor after Cleansing No -Bioengineered Tissue No -Bleeding Controlled with Pressure -Treatment Response Procedure Tolerated Well [See Physician Procedure note for Specifics] Pain Scale: 0-10 Numeric [Pain] -Is Patient Pain Free? Yes Debridement Note Post-Debridement Measurements/Treatment WC - Nurse 2 - General Ulcer CM Notes Start: 01/11/18 10:51 Freq: Status: Active Protocol: Activity Type Activity Date Activity User E-Sign Co-Sign Detail Recorded Client Recorded Date Recorded By Document 01/11/18 11:37 LIANE [id number] 01/11/18 11:38 LIANE 01/11/18 11:37 Wound Center Nurse 2 #1 RT ISCHIUM- POST OP -Time 11:37 -Correct Patient Yes -Correct Side, Site, Position Yes -Correct Procedure Yes -Procedure Performed Yes -Type of Procedure Debridement -Clinical Debridement Subcutaneous -Post Debridement Size (cm) - Length 6.8 -Post Debridement Size (cm) - Width 2.1 -Post Debridement Size (cm) - Depth 1.9 -Total Square Cm 14.28 -Wound/Ulcer Outcome Not Healed -Ulcer Cleansing Rinsed/ Irrigated with Saline -Foul Odor after Cleansing No -Bioengineered Tissue No -Bleeding Controlled with Pressure -Treatment Response Procedure Tolerated Well Pain Scale: 0-10 Numeric Is Patient Pain Free? Yes Wound debrided: Right ischial ulcer Laterality: Right Type of Debridement: Excisional debridement Anesthesia Used: 4% Lidocaine Solution Depth: Down to and including healthy tissue, in the subcutaneous layer, to muscle Percentage of wound debrided: 100 Instrument Used: 7mm curette Tissue Removed: Subcutaneous tissue and slough. Amount of bleeding with debridement: Mild Bleeding Controlled with: Pressure Patient tolerated procedure well Ulcer open to muscle layer, debrided slough and by odor and subcutaneous tissue. Assessment/Plan Assessment: 1. Right ischial pressure sore, stage IV. 2. Paraplegia. 3. History of osteomyelitis. 4. s/p excision right ischial pressure sore, Stage IV, with partial ostectomy for osteomyelitis. Plan: Continue silver dressing changes daily. Will reculture wound today due to him being symptomatic with sweating. His operative cultures and soft tissue and bone showed Enterobacter cloacae. Combined with the preop cultures that showed Staphylococcus haemolyticus and Aerococcus viridans, he was discharged on Vancomycin, Levaquin, and Diflucan. He has finished all his antibiotics. A CT Pelvis was done 11/07/17. It was suspious for osteomyelitis. Pathology was negative for osteomyelitis. At this time the insurance carrier has denied his HBO treatments. Patient needs to wait 4 months with continued treatmes (surgery, wound care and antibiotics). Will repeat the CT at that time. IF still suspicious for osteomyelitis, will reappyly for HBO treatments for chronic refractory osteomyelitis. Prealbumin from 11/18/17 was 21.3. Encourage nutritional supplementation with protein to help the healing process. Follow up in [address] Ken. Code Visit [id number]: [id number] Mirella musc/fascia 20 sq cm/<
[2018-01-18 12:46] VITALS: BP 139/71; PULSE 87; RESP 18; TEMP 36
--- NOTE | 2018-01-18 22:25 | PCM.WC.PN ---
Type of Wound Date of Service: 01/18/18 Chief Complaint: Right ischial pressure sore, Stage IV. History of Wound: Surgery 11/17/17 - Excision right ischial pressure sore, Stage IV, with partial ostectomy for osteomyelitis. Wound care - Silver. Operative culture, bone and soft tissue - Enterobacter cloacae. Preop culture showed Staphylococcus haemolyticus and Aerococcus viridans. He was discharged on Vancomycin, and Levaquin, and Diflucan. He has finished the Vancomycin and the Levaquin. Another wound culture from 01/11/18 showed Staphylococcus lentus and Granulicatella adiacens. He was started on Doxycycline. Pathology - negative for osteomyelitis. Prealbumin from 11/18/17 was 21.3. Encourage nutritional supplementation with protein to help the healing process. CT Pelvis was done on 11/07/17. It showed right buttocks and upper posterior thigh decubitus ulcer with granulation tissue and air pocket extending to the ischial tuberosity appear larger when compared to the previous study. There is osteosclerosis in the ischial tuberosity with irregular periosteal bone formation suggesting chronic osteomyelitis.. Today he denies fever. His appetite is good. It was noted according to his insurance carrier that he doesn't qualify for HBO treatments at this time. Progress of Wound: Improved. - Physical Exam Vital Signs Temp Pulse Resp BP 96.8 F L 87 18 139/71 H 01/18/18 12:46 01/18/18 12:46 01/18/18 12:46 01/18/18 12:46 Wound Measurements and Assessment WC - Nurse 1 - General Ulcer Measurement Start: 01/11/18 10:51 Freq: Status: Active Protocol: Activity Type Activity Date Activity User E-Sign Co-Sign Detail Recorded Client Recorded Date Recorded By Document 01/18/18 12:46 LIANE [id number] 01/18/18 12:48 LIANE 01/18/18 12:46 Wound Center Nurse 1 [Ulcer Assessment] #1 RT ISCHIUM- POST OP -Combined with other wound No -Current Size (cm) - Length 3 -Current Size (cm) - Width 6 -Current Size (cm) - Depth 1.0 -Total Square Cm 18 -Photo Taken No -Epithelialization Small 1-33% -Tunneling Yes -Tunneling Position (O'clock) 10 -Tunneling Distance (cm) 3.0 -Undermining/Tunneling No -Circular Undermining No -Classification - Thickness Full Thickness with Exposed Support Structure -Exudate Amt Large (67-100%) -Exudate Type Serosanguineous -Wound Margin Flat & Intact -Granulation Amt Large (67-100%) -Granulation Quality Red -Slough/Fibrin Yes -Necrosis Amt Small (1-33%) -Necrotic Tissue Type Adherent Slough -Structure Exposed N/A -Texture (Elizabeth-wound Skin Appearance) Assessed -Moisture (Elizabeth-wound Skin Appearance Assessed ) Dry/Scaly -Color (Elizabeth-wound Skin Appearance) Assessed -Temperature (Elizabeth-wound Skin No Abnormality Appearance) (Pt Warm) -Tenderness on Palpation (Elizabeth-wound No Skin Appearance) -Ulcer Cleansing Wound Cleanser -Foul Odor after Cleansing No -Anesthetic Used 4% Lidocaine Solution [Edema Assessment] -Lower Limb Edema Present NA - Nurse 2 - General Ulcer CM Notes Start: 01/11/18 10:51 Freq: Status: Active Protocol: Activity Type Activity Date Activity User E-Sign Co-Sign Detail Recorded Client Recorded Date Recorded By Document 01/18/18 12:51 [id number] 01/18/18 12:53 01/18/18 12:51 Wound Center Nurse 2 [Procedure/Treatment] #1 RT ISCHIUM- POST OP -Time 12:52 -Correct Patient Yes -Correct Side, Site, Position Yes -Correct Procedure Yes -Procedure Performed Yes -Type of Procedure Debridement -Clinical Debridement Muscle -Post Debridement Size (cm) - Length 3.1 -Post Debridement Size (cm) - Width 6.1 -Post Debridement Size (cm) - Depth 1 -Total Square Cm 18.91 -Wound/Ulcer Outcome Not Healed -Ulcer Cleansing Rinsed/ Irrigated with Saline -Foul Odor after Cleansing No -Bioengineered Tissue No -Bleeding Controlled with Pressure -Treatment Response Procedure Tolerated Well [See Physician Procedure note for Specifics] Pain Scale: 0-10 Numeric [Pain] -Is Patient Pain Free? Yes Debridement Note Post-Debridement Measurements/Treatment - Nurse 2 - General Ulcer CM Notes Start: 01/11/18 10:51 Freq: Status: Active Protocol: Activity Type Activity Date Activity User E-Sign Co-Sign Detail Recorded Client Recorded Date Recorded By Document 01/11/18 11:37 [id number] 01/11/18 11:38 Document 01/18/18 12:51 [id number] 01/18/18 12:53 01/11/18 01/18/18 11:37 12:51 Wound Center Nurse 2 #1 RT ISCHIUM- POST OP -Time 11:37 12:52 -Correct Patient Yes Yes -Correct Side, Site, Position Yes Yes -Correct Procedure Yes Yes -Procedure Performed Yes Yes -Type of Procedure Debridement Debridement -Clinical Debridement Subcutaneous Muscle -Post Debridement Size (cm) - Length 6.8 3.1 -Post Debridement Size (cm) - Width 2.1 6.1 -Post Debridement Size (cm) - Depth 1.9 1 -Total Square Cm 14.28 18.91 -Wound/Ulcer Outcome Not Healed Not Healed -Ulcer Cleansing Rinsed/ Rinsed/ Irrigated with Irrigated with Saline Saline -Foul Odor after Cleansing No No -Bioengineered Tissue No No -Bleeding Controlled with Pressure Pressure -Treatment Response Procedure Procedure Tolerated Well Tolerated Well Pain Scale: 0-10 Numeric Is Patient Pain Free? Yes Yes Wound debrided: #1 Right ischial area. Laterality: Right Wound Grade/Stage: IV. Type of Debridement: Excisional debridement Anesthesia Used: 4% Lidocaine Solution Depth: Down to and including healthy tissue, in the subcutaneous layer, to muscle Percentage of wound debrided: 100 Instrument Used: 7mm curette Tissue Removed: subcutaneous tissue and muscle. Severity: Fat Layer Exposed - muscle is exposed. Amount of bleeding with debridement: Mild Bleeding Controlled with: Pressure Patient tolerated procedure well Assessment/Plan Assessment: 1. Right ischial pressure sore, stage IV. 2. Paraplegia. 3. History of osteomyelitis. 4. s/p excision right ischial pressure sore, Stage IV, with partial ostectomy for osteomyelitis. Plan: Continue Silver dressing changes daily. His operative cultures in soft tissue and bone showed Enterobacter cloacae. Combined with the preop cultures that showed Staphylococcus haemolyticus and Aerococcus viridans, he was discharged on Vancomycin, Levaquin, and Diflucan. He has finished the Vancomycin and the Levaquin. A wound culture from 01/11/18 showed Staphylococcus lentus and Granulicatella adiacens. He was started on Doxycycline and will continue them. A CT Pelvis was done on 11/07/17. It was suspicious for osteomyelitis. Pathology was negative for osteomyelitis. At this time the insurance carrier has denied his HBO treatments. Patient needs to wait 4 months with continued treatments (surgery, wound care, and antibiotics). Will repeat the CT at that time. If still suspicious for osteomyelitis, will reapply for HBO treatments for chronic refractory osteomyelitis. Prealbumin from 11/18/17 was 21.3. Encourage nutritional supplementation with protein to help the healing process. Followup 2 weeks to see Noemy, the Nurse Practitioner. Followup 4 weeks to see me.
[2018-02-02 13:30] VITALS: BP 79/52; PULSE 98; RESP 18; TEMP 36.4
--- NOTE | 2018-02-02 17:05 | PCM.WC.PN ---
(1) Right ischial pressure sore, stage 4 Status: Chronic Current Visit: Yes Code(s): L89.314 - Pressure ulcer of right buttock, stage 4 (2) Paraplegia Status: Chronic Current Visit: Yes Code(s): G82.20 - Paraplegia, unspecified (3) Osteomyelitis of right side of pelvis Status: Chronic Current Visit: Yes Code(s): M86.9 - Osteomyelitis, unspecified (4) Infected wound Status: Acute Current Visit: Yes Code(s): T14.8XXA - Other injury of unspecified body region, initial encounter; L08.9 - Local infection of the skin and subcutaneous tissue, unspecified Type of Wound Date of Service: 02/02/18 Chief Complaint: Right ischial pressure sore, Stage IV. History of Wound: Surgery 11/17/17 - Excision right ischial pressure sore, Stage IV, with partial ostectomy for osteomyelitis. Wound care - Silver. Operative culture, bone and soft tissue - Enterobacter cloacae. Preop culture showed Staphylococcus haemolyticus and Aerococcus viridans. He was discharged on Vancomycin, and Levaquin, and Diflucan. He has finished the Vancomycin and the Levaquin. Another wound culture from 01/11/18 showed Staphylococcus lentus and Granulicatella adiacens. He was started on Doxycycline. Pathology - negative for osteomyelitis. Prealbumin from 11/18/17 was 21.3. Encourage nutritional supplementation with protein to help the healing process. CT Pelvis was done on 11/07/17. It showed right buttocks and upper posterior thigh decubitus ulcer with granulation tissue and air pocket extending to the ischial tuberosity appear larger when compared to the previous study. There is osteosclerosis in the ischial tuberosity with irregular periosteal bone formation suggesting chronic osteomyelitis.. Today he denies fever. His appetite is good. It was noted according to his insurance carrier that he doesn't qualify for HBO treatments at this time. Progress of Wound: Improved. - Physical Exam Vital Signs Temp Pulse Resp BP 97.5 F L 98 18 79/52 L 02/02/18 13:30 02/02/18 13:30 02/02/18 13:30 02/02/18 13:30 General: Alert, Oriented x3, Cooperative HEENT: Atraumatic Skin: Ulcer/ Wound - Right ischial ulcer, Stage IV Wound Measurements and Assessment WC - Nurse 1 - General Ulcer Measurement Start: 01/11/18 10:51 Freq: Status: Active Protocol: Activity Type Activity Date Activity User E-Sign Co-Sign Detail Recorded Client Recorded Date Recorded By Document 02/02/18 13:30 [id number] 02/02/18 13:31 02/02/18 13:30 Wound Center Nurse 1 [Ulcer Assessment] #1 RT ISCHIUM- POST OP -Combined with other wound No -Current Size (cm) - Length 3 -Current Size (cm) - Width 7.5 -Current Size (cm) - Depth 0.7 -Total Square Cm 22.5 -Photo Taken No -Epithelialization None Present -Tunneling No -Undermining/Tunneling No -Circular Undermining No -Exudate Amt Large (67-100%) -Exudate Type Serosanguineous -Wound Margin Flat & Intact -Granulation Amt Large (67-100%) -Granulation Quality Red -Slough/Fibrin Yes -Necrosis Amt Small (1-33%) -Necrotic Tissue Type Adherent Slough -Structure Exposed N/A -Texture (Elizabeth-wound Skin Appearance) Assessed Excoriation -Moisture (Elizabeth-wound Skin Appearance Assessed ) Dry/Scaly -Color (Elizabeth-wound Skin Appearance) Assessed -Temperature (Elizabeth-wound Skin No Abnormality Appearance) (Pt Warm) -Tenderness on Palpation (Elizabeth-wound No Skin Appearance) -Ulcer Cleansing Wound Cleanser -Foul Odor after Cleansing No [Edema Assessment] -Lower Limb Edema Present NA WC - Nurse 2 - General Ulcer CM Notes Start: 01/11/18 10:51 Freq: Status: Active Protocol: Activity Type Activity Date Activity User E-Sign Co-Sign Detail Recorded Client Recorded Date Recorded By Document 02/02/18 13:41 [id number] 02/02/18 13:45 02/02/18 13:41 Wound Center Nurse 2 [Procedure/Treatment] #1 RT ISCHIUM- POST OP -Time 13:41 -Correct Patient Yes -Correct Side, Site, Position Yes -Correct Procedure Yes -Procedure Performed Yes -Type of Procedure Debridement -Clinical Debridement Muscle -Post Debridement Size (cm) - Length 5.2 -Post Debridement Size (cm) - Width 2.8 -Post Debridement Size (cm) - Depth 2.0 -Total Square Cm 14.56 -Wound/Ulcer Outcome Not Healed -Ulcer Cleansing Rinsed/ Irrigated with Saline -Foul Odor after Cleansing No -Bioengineered Tissue No -Bleeding Controlled with Pressure -Other 12:00-- tunneling 3.2 cm -Treatment Response Procedure Tolerated Well [See Physician Procedure note for Specifics] Pain Scale: 0-10 Numeric [Pain] -Is Patient Pain Free? Yes Musculoskeletal: No Tenderness to Palpation of Joints or Extremities Neurological: Cranial nerves II-XII grossly intact Psych/Mental Status: Normal Affect, Appropriate Debridement Note Post-Debridement Measurements/Treatment WC - Nurse 2 - General Ulcer CM Notes Start: 01/11/18 10:51 Freq: Status: Active Protocol: Activity Type Activity Date Activity User E-Sign Co-Sign Detail Recorded Client Recorded Date Recorded By Document 01/11/18 11:37 [id number] 01/11/18 11:38 Document 01/18/18 12:51 [id number] 01/18/18 12:53 Document 02/02/18 13:41 [id number] 02/02/18 13:45 01/11/18 01/18/18 02/02/18 11:37 12:51 13:41 Wound Center Nurse 2 #1 RT ISCHIUM- POST OP -Time 11:37 12:52 13:41 -Correct Patient Yes Yes Yes -Correct Side, Site, Position Yes Yes Yes -Correct Procedure Yes Yes Yes -Procedure Performed Yes Yes Yes -Type of Procedure Debridement Debridement Debridement -Clinical Debridement Subcutaneous Muscle Muscle -Post Debridement Size (cm) - Length 6.8 3.1 5.2 -Post Debridement Size (cm) - Width 2.1 6.1 2.8 -Post Debridement Size (cm) - Depth 1.9 1 2.0 -Total Square Cm 14.28 18.91 14.56 -Wound/Ulcer Outcome Not Healed Not Healed Not Healed -Ulcer Cleansing Rinsed/ Rinsed/ Rinsed/ Irrigated with Irrigated with Irrigated with Saline Saline Saline -Foul Odor after Cleansing No No No -Bioengineered Tissue No No No -Bleeding Controlled with Pressure Pressure Pressure -Other 12:00-- tunneling 3.2 cm -Treatment Response Procedure Procedure Procedure Tolerated Well Tolerated Well Tolerated Well Pain Scale: 0-10 Numeric Is Patient Pain Free? Yes Yes Yes Wound debrided: Right ischial ulcer Laterality: Right Wound Grade/Stage: Stage IV Type of Debridement: Excisional debridement Anesthesia Used: 4% Lidocaine Solution Depth: Down to and including healthy tissue, to muscle Percentage of wound debrided: 100 Instrument Used: 7mm curette Tissue Removed: Slough and bioderm Severity: Fat Layer Exposed Amount of bleeding with debridement: Mild Bleeding Controlled with: Pressure Patient tolerated procedure well Muscles is exposed. Not necrotic. Removed bioderm and slough. Assessment/Plan Active Problems Osteomyelitis of right side of pelvis (Chronic) Right ischial pressure sore, stage 4 (Chronic) Paraplegia (Chronic) Infected wound (Acute) Assessment: 1. Right ischial pressure sore, stage IV. 2. Paraplegia. 3. History of osteomyelitis. 4. s/p excision right ischial pressure sore, Stage IV, with partial ostectomy for osteomyelitis. Plan: Continue calcium alginate dressing changes daily and add sorbian sachet for absorption of drainage. His operative cultures in soft tissue and bone showed Enterobacter cloacae. Combined with the preop cultures that showed Staphylococcus haemolyticus and Aerococcus viridans, he was discharged on Vancomycin, Levaquin, and Diflucan. He has finished the Vancomycin and the Levaquin. A wound culture from 01/11/18 showed Staphylococcus lentus and Granulicatella adiacens. He continues to take Doxycycline. His [id number]-bia is concerned because he continues to have periods of sweating (which he does only with infection). Currently no fever. Will consider reculturing if still symptomatic next week. A CT Pelvis was done on 11/07/17. It was suspicious for osteomyelitis. Pathology was negative for osteomyelitis. At this time the insurance carrier has denied his HBO treatments. Patient needs to wait 4 months with continued treatments (surgery, wound care, and antibiotics). Will repeat the CT at that time. If still suspicious for osteomyelitis, will reapply for HBO treatments for chronic refractory osteomyelitis. Prealbumin from 11/18/17 was 21.3. Encourage nutritional supplementation with protein to help the healing process. Followup [address] Ken. Code Visit [id number]: [id number] Mirella musc/fascia 20 sq cm/<
--- NOTE | 2018-02-04 09:10 | PN.PCM_ITS ---
(1) Right ischial pressure sore, stage 4 Status: Chronic Current Visit: Yes Code(s): L89.314 - Pressure ulcer of right buttock, stage 4 (2) Paraplegia Status: Chronic Current Visit: Yes Code(s): G82.20 - Paraplegia, unspecified (3) Osteomyelitis of right side of pelvis Status: Chronic Current Visit: Yes Code(s): M86.9 - Osteomyelitis, unspecified (4) Infected wound Status: Acute Current Visit: Yes Code(s): T14.8XXA - Other injury of unspecified body region, initial encounter; L08.9 - Local infection of the skin and subcutaneous tissue, unspecified Type of Wound Date of Service: 02/02/18 Chief Complaint: Right ischial pressure sore, Stage IV. History of Wound: Surgery 11/17/17 - Excision right ischial pressure sore, Stage IV, with partial ostectomy for osteomyelitis. Wound care - Silver. Operative culture, bone and soft tissue - Enterobacter cloacae. Preop culture showed Staphylococcus haemolyticus and Aerococcus viridans. He was discharged on Vancomycin, and Levaquin, and Diflucan. He has finished the Vancomycin and the Levaquin. Another wound culture from 01/11/18 showed Staphylococcus lentus and Granulicatella adiacens. He was started on Doxycycline. Pathology - negative for osteomyelitis. Prealbumin from 11/18/17 was 21.3. Encourage nutritional supplementation with protein to help the healing process. CT Pelvis was done on 11/07/17. It showed right buttocks and upper posterior thigh decubitus ulcer with granulation tissue and air pocket extending to the ischial tuberosity appear larger when compared to the previous study. There is osteosclerosis in the ischial tuberosity with irregular periosteal bone formation suggesting chronic osteomyelitis.. Today he denies fever. His appetite is good. It was noted according to his insurance carrier that he doesn't qualify for HBO treatments at this time. Progress of Wound: Improved. - Physical Exam Vital Signs Temp Pulse Resp BP 97.5 F L 98 18 79/52 L 02/02/18 13:30 02/02/18 13:30 02/02/18 13:30 02/02/18 13:30 General: Alert, Oriented x3, Cooperative HEENT: Atraumatic Skin: Ulcer/ Wound - Right ischial ulcer, Stage IV Wound Measurements and Assessment WC - Nurse 1 - General Ulcer Measurement Start: 01/11/18 10:51 Freq: Status: Active Protocol: Activity Type Activity Date Activity User E-Sign Co-Sign Detail Recorded Client Recorded Date Recorded By Document 02/02/18 13:30 [id number] 02/02/18 13:31 02/02/18 13:30 Wound Center Nurse 1 [Ulcer Assessment] #1 RT ISCHIUM- POST OP -Combined with other wound No -Current Size (cm) - Length 3 -Current Size (cm) - Width 7.5 -Current Size (cm) - Depth 0.7 -Total Square Cm 22.5 -Photo Taken No -Epithelialization None Present -Tunneling No -Undermining/Tunneling No -Circular Undermining No -Exudate Amt Large (67-100%) -Exudate Type Serosanguineous -Wound Margin Flat & Intact -Granulation Amt Large (67-100%) -Granulation Quality Red -Slough/Fibrin Yes -Necrosis Amt Small (1-33%) -Necrotic Tissue Type Adherent Slough -Structure Exposed N/A -Texture (Elizabeth-wound Skin Appearance) Assessed Excoriation -Moisture (Elizabeth-wound Skin Appearance Assessed ) Dry/Scaly -Color (Elizabeth-wound Skin Appearance) Assessed -Temperature (Elizabeth-wound Skin No Abnormality Appearance) (Pt Warm) -Tenderness on Palpation (Elizabeth-wound No Skin Appearance) -Ulcer Cleansing Wound Cleanser -Foul Odor after Cleansing No [Edema Assessment] -Lower Limb Edema Present NA WC - Nurse 2 - General Ulcer CM Notes Start: 01/11/18 10:51 Freq: Status: Active Protocol: Activity Type Activity Date Activity User E-Sign Co-Sign Detail Recorded Client Recorded Date Recorded By Document 02/02/18 13:41 [id number] 02/02/18 13:45 02/02/18 13:41 Wound Center Nurse 2 [Procedure/Treatment] #1 RT ISCHIUM- POST OP -Time 13:41 -Correct Patient Yes -Correct Side, Site, Position Yes -Correct Procedure Yes -Procedure Performed Yes -Type of Procedure Debridement -Clinical Debridement Muscle -Post Debridement Size (cm) - Length 5.2 -Post Debridement Size (cm) - Width 2.8 -Post Debridement Size (cm) - Depth 2.0 -Total Square Cm 14.56 -Wound/Ulcer Outcome Not Healed -Ulcer Cleansing Rinsed/ Irrigated with Saline -Foul Odor after Cleansing No -Bioengineered Tissue No -Bleeding Controlled with Pressure -Other 12:00-- tunneling 3.2 cm -Treatment Response Procedure Tolerated Well [See Physician Procedure note for Specifics] Pain Scale: 0-10 Numeric [Pain] -Is Patient Pain Free? Yes Musculoskeletal: No Tenderness to Palpation of Joints or Extremities Neurological: Cranial nerves II-XII grossly intact Psych/Mental Status: Normal Affect, Appropriate Debridement Note Post-Debridement Measurements/Treatment WC - Nurse 2 - General Ulcer CM Notes Start: 01/11/18 10:51 Freq: Status: Active Protocol: Activity Type Activity Date Activity User E-Sign Co-Sign Detail Recorded Client Recorded Date Recorded By Document 01/11/18 11:37 [id number] 01/11/18 11:38 Document 01/18/18 12:51 [id number] 01/18/18 12:53 Document 02/02/18 13:41 [id number] 02/02/18 13:45 01/11/18 01/18/18 02/02/18 11:37 12:51 13:41 Wound Center Nurse 2 #1 RT ISCHIUM- POST OP -Time 11:37 12:52 13:41 -Correct Patient Yes Yes Yes -Correct Side, Site, Position Yes Yes Yes -Correct Procedure Yes Yes Yes -Procedure Performed Yes Yes Yes -Type of Procedure Debridement Debridement Debridement -Clinical Debridement Subcutaneous Muscle Muscle -Post Debridement Size (cm) - Length 6.8 3.1 5.2 -Post Debridement Size (cm) - Width 2.1 6.1 2.8 -Post Debridement Size (cm) - Depth 1.9 1 2.0 -Total Square Cm 14.28 18.91 14.56 -Wound/Ulcer Outcome Not Healed Not Healed Not Healed -Ulcer Cleansing Rinsed/ Rinsed/ Rinsed/ Irrigated with Irrigated with Irrigated with Saline Saline Saline -Foul Odor after Cleansing No No No -Bioengineered Tissue No No No -Bleeding Controlled with Pressure Pressure Pressure -Other 12:00-- tunneling 3.2 cm -Treatment Response Procedure Procedure Procedure Tolerated Well Tolerated Well Tolerated Well Pain Scale: 0-10 Numeric Is Patient Pain Free? Yes Yes Yes Wound debrided: Right ischial ulcer Laterality: Right Wound Grade/Stage: Stage IV Type of Debridement: Excisional debridement Anesthesia Used: 4% Lidocaine Solution Depth: Down to and including healthy tissue, to muscle Percentage of wound debrided: 100 Instrument Used: 7mm curette Tissue Removed: Slough and bioderm Severity: Fat Layer Exposed Amount of bleeding with debridement: Mild Bleeding Controlled with: Pressure Patient tolerated procedure well Muscles is exposed. Not necrotic. Removed bioderm and slough. Assessment/Plan Active Problems Osteomyelitis of right side of pelvis (Chronic) Right ischial pressure sore, stage 4 (Chronic) Paraplegia (Chronic) Infected wound (Acute) Assessment: 1. Right ischial pressure sore, stage IV. 2. Paraplegia. 3. History of osteomyelitis. 4. s/p excision right ischial pressure sore, Stage IV, with partial ostectomy for osteomyelitis. Plan: Continue calcium alginate dressing changes daily and add sorbian sachet for absorption of drainage. His operative cultures in soft tissue and bone showed Enterobacter cloacae. Combined with the preop cultures that showed Staphylococcus haemolyticus and Aerococcus viridans, he was discharged on Vancomycin, Levaquin, and Diflucan. He has finished the Vancomycin and the Levaquin. A wound culture from 01/11/18 showed Staphylococcus lentus and Granulicatella adiacens. He continues to take Doxycycline. His xlhkba-[id number]-rug is concerned because he continues to have periods of sweating (which he does only with infection). Currently no fever. Will consider reculturing if still symptomatic next week. A CT Pelvis was done on 11/07/17. It was suspicious for osteomyelitis. Pathology was negative for osteomyelitis. At this time the insurance carrier has denied his HBO treatments. Patient needs to wait 4 months with continued treatments (surgery, wound care, and antibiotics). Will repeat the CT at that time. If still suspicious for osteomyelitis, will reapply for HBO treatments for chronic refractory osteomyelitis. Prealbumin from 11/18/17 was 21.3. Encourage nutritional supplementation with protein to help the healing process. Followup [address] Ken. Code Visit 111xxx-[id number]: [id number] Mirella musc/fascia 20 sq cm/<
[2018-02-08 12:09] VITALS: BP 110/77; PULSE 87; RESP 16; TEMP 35.9
--- NOTE | 2018-02-08 22:21 | PCM.WC.PN ---
Type of Wound Date of Service: 02/08/18 Chief Complaint: Right ischial pressure sore, Stage IV. History of Wound: Surgery 11/17/17 - Excision right ischial pressure sore, Stage IV, with partial ostectomy for osteomyelitis. Wound care - Silver. Operative culture, bone and soft tissue - Enterobacter cloacae. Preop culture showed Staphylococcus haemolyticus and Aerococcus viridans. He was discharged on Vancomycin, and Levaquin, and Diflucan. He has finished the Vancomycin and the Levaquin. Another wound culture from 01/11/18 showed Staphylococcus lentus and Granulicatella adiacens. He was started on Doxycycline. Pathology - negative for osteomyelitis. Prealbumin from 11/18/17 was 21.3. Encourage nutritional supplementation with protein to help the healing process. CT Pelvis was done on 11/07/17. It showed right buttocks and upper posterior thigh decubitus ulcer with granulation tissue and air pocket extending to the ischial tuberosity appear larger when compared to the previous study. There is osteosclerosis in the ischial tuberosity with irregular periosteal bone formation suggesting chronic osteomyelitis. Today he denies fever. His appetite is good. It was noted according to his insurance carrier that he didn't qualify for HBO treatments at this time. Progress of Wound: Improved. - Physical Exam Vital Signs Temp Pulse Resp BP 96.6 F L 87 16 110/77 02/08/18 12:09 02/08/18 12:09 02/08/18 12:09 02/08/18 12:09 Wound Measurements and Assessment WC - Nurse 1 - General Ulcer Measurement Start: 01/11/18 10:51 Freq: Status: Active Protocol: Activity Type Activity Date Activity User E-Sign Co-Sign Detail Recorded Client Recorded Date Recorded By Document 02/08/18 12:09 [id number] 02/08/18 12:10 02/08/18 12:09 Wound Center Nurse 1 [Ulcer Assessment] #1 RT ISCHIUM- POST OP -Combined with other wound No -Current Size (cm) - Length 3.6 -Current Size (cm) - Width 7.0 -Current Size (cm) - Depth 2.7 -Total Square Cm 25.20 -Photo Taken No -Epithelialization None Present -Tunneling No -Undermining/Tunneling No -Circular Undermining No -Exudate Amt Large (67-100%) -Exudate Type Serosanguineous -Wound Margin Flat & Intact -Granulation Amt Large (67-100%) -Granulation Quality Red -Slough/Fibrin Yes -Necrosis Amt Small (1-33%) -Necrotic Tissue Type Adherent Slough -Structure Exposed N/A -Texture (Elizabeth-wound Skin Appearance) Assessed -Moisture (Elizabeth-wound Skin Appearance Assessed ) Maceration -Color (Elizabeth-wound Skin Appearance) Assessed -Temperature (Elizabeth-wound Skin No Abnormality Appearance) (Pt Warm) -Tenderness on Palpation (Elizabeth-wound No Skin Appearance) -Ulcer Cleansing Wound Cleanser -Foul Odor after Cleansing No [Edema Assessment] -Lower Limb Edema Present NA - Nurse 2 - General Ulcer CM Notes Start: 01/11/18 10:51 Freq: Status: Active Protocol: Activity Type Activity Date Activity User E-Sign Co-Sign Detail Recorded Client Recorded Date Recorded By Document 02/08/18 12:12 [id number] 02/08/18 12:17 02/08/18 12:12 Wound Center Nurse 2 [Procedure/Treatment] #1 RT ISCHIUM- POST OP -Time 12:15 -Correct Patient Yes -Correct Side, Site, Position Yes -Correct Procedure Yes -Procedure Performed Yes -Type of Procedure Debridement -Clinical Debridement Muscle -Post Debridement Size (cm) - Length 3.7 -Post Debridement Size (cm) - Width 7.0 -Post Debridement Size (cm) - Depth 2.7 -Total Square Cm 25.90 -Wound/Ulcer Outcome Not Healed -Ulcer Cleansing Rinsed/ Irrigated with Saline -Foul Odor after Cleansing No -Bioengineered Tissue No -Bleeding Controlled with Pressure -Treatment Response Procedure Tolerated Well [See Physician Procedure note for Specifics] Pain Scale: 0-10 Numeric [Pain] -Is Patient Pain Free? Yes Debridement Note Post-Debridement Measurements/Treatment - Nurse 2 - General Ulcer CM Notes Start: 01/11/18 10:51 Freq: Status: Active Protocol: Activity Type Activity Date Activity User E-Sign Co-Sign Detail Recorded Client Recorded Date Recorded By Document 01/11/18 11:37 [id number] 01/11/18 11:38 Document 01/18/18 12:51 [id number] 01/18/18 12:53 Document 02/02/18 13:41 [id number] 02/02/18 13:45 Document 02/08/18 12:12 [id number] 02/08/18 12:17 01/11/18 01/18/18 02/02/18 11:37 12:51 13:41 Wound Center Nurse 2 #1 RT ISCHIUM- POST OP -Time 11:37 12:52 13:41 -Correct Patient Yes Yes Yes -Correct Side, Site, Position Yes Yes Yes -Correct Procedure Yes Yes Yes -Procedure Performed Yes Yes Yes -Type of Procedure Debridement Debridement Debridement -Clinical Debridement Subcutaneous Muscle Muscle -Post Debridement Size (cm) - Length 6.8 3.1 5.2 -Post Debridement Size (cm) - Width 2.1 6.1 2.8 -Post Debridement Size (cm) - Depth 1.9 1 2.0 -Total Square Cm 14.28 18.91 14.56 -Wound/Ulcer Outcome Not Healed Not Healed Not Healed -Ulcer Cleansing Rinsed/ Rinsed/ Rinsed/ Irrigated with Irrigated with Irrigated with Saline Saline Saline -Foul Odor after Cleansing No No No -Bioengineered Tissue No No No -Bleeding Controlled with Pressure Pressure Pressure -Other 12:00-- tunneling 3.2 cm -Treatment Response Procedure Procedure Procedure Tolerated Well Tolerated Well Tolerated Well Pain Scale: 0-10 Numeric Is Patient Pain Free? Yes Yes Yes 02/08/18 12:12 Wound Center Nurse 2 #1 RT ISCHIUM- POST OP -Time 12:15 -Correct Patient Yes -Correct Side, Site, Position Yes -Correct Procedure Yes -Procedure Performed Yes -Type of Procedure Debridement -Clinical Debridement Muscle -Post Debridement Size (cm) - Length 3.7 -Post Debridement Size (cm) - Width 7.0 -Post Debridement Size (cm) - Depth 2.7 -Total Square Cm 25.90 -Wound/Ulcer Outcome Not Healed -Ulcer Cleansing Rinsed/ Irrigated with Saline -Foul Odor after Cleansing No -Bioengineered Tissue No -Bleeding Controlled with Pressure -Other -Treatment Response Procedure Tolerated Well Pain Scale: 0-10 Numeric Is Patient Pain Free? Yes Wound debrided: #1 Right ischial area. Laterality: Right Wound Grade/Stage: IV. Type of Debridement: Excisional debridement Anesthesia Used: 4% Lidocaine Solution Depth: Down to and including healthy tissue, in the subcutaneous layer, to muscle - bone is palpable but not debrided. Percentage of wound debrided: 100 Instrument Used: 7mm curette Tissue Removed: subcutaneous tissue and muscle. Severity: Fat Layer Exposed - muscle is exposed. bone is palpable but not debrided. Amount of bleeding with debridement: Mild Bleeding Controlled with: Pressure Patient tolerated procedure well Assessment/Plan Assessment: 1. Right ischial pressure sore, stage IV. 2. Paraplegia. 3. History of osteomyelitis. 4. s/p excision right ischial pressure sore, Stage IV, with partial ostectomy for osteomyelitis. Plan: Continue Silver dressing changes daily with Sorbian Sachet for absorption of drainage. His operative cultures in soft tissue and bone showed Enterobacter cloacae. Combined with the preop cultures that showed Staphylococcus haemolyticus and Aerococcus viridans, he was discharged on Vancomycin, Levaquin, and Diflucan. He has finished the Vancomycin and the Levaquin. A wound culture from 01/11/18 showed Staphylococcus lentus and Granulicatella adiacens. He is taking Doxycycline, and it was renewed. A CT Pelvis was done on 11/07/17. It was suspicious for osteomyelitis. Pathology was negative for osteomyelitis. At this time the insurance carrier has denied his HBO treatments. Patient needs to wait 4 months with continued treatments (surgery, wound care, and antibiotics). Will repeat the CT at that time. If still suspicious for osteomyelitis, will reapply for HBO treatments for chronic refractory osteomyelitis. Prealbumin from 11/18/17 was 21.3. Encourage nutritional supplementation with protein to help the healing process. Followup 2 weeks.
== END 2018-02-10 23:59 ==
LOC: WC 11:30
PROVIDERS: Family Provider Preventive Medicine Occupational Medicine; PCP Preventive Medicine Occupational Medicine; Visit Provider Surgery
DX: L89.214 Pressure ulcer of right hip, stage 4 (principal); G82.20 Paraplegia, unspecified
CPT/HCPCS: 11042; 11043; 11046; 87070; 87075; 87077; 87186; 87205

== ENCOUNTER 2018-03-08 10:45 | Outpatient (RCR) | payer BC, MEDICARE, SELFPAY ==
[2018-02-11 01:03] VITALS: BP 110/77; PULSE 87; RESP 16; TEMP 35.9
[2018-02-22 11:14] VITALS: BP 108/74; PULSE 97; RESP 16; TEMP 35
--- NOTE | 2018-02-22 21:59 | PCM.WC.PN ---
Type of Wound Date of Service: 02/22/18 Chief Complaint: Right ischial pressure sore, Stage IV. History of Wound: Surgery 11/17/17 - Excision right ischial pressure sore, Stage IV, with partial ostectomy for osteomyelitis. Wound care - Silver. Operative culture, bone and soft tissue - Enterobacter cloacae. Preop culture showed Staphylococcus haemolyticus and Aerococcus viridans. He was discharged on Vancomycin, and Levaquin, and Diflucan. He has finished the Vancomycin and the Levaquin. Another wound culture from 01/11/18 showed Staphylococcus lentus and Granulicatella adiacens. He was started on Doxycycline and is finishing them. Pathology - negative for osteomyelitis. Prealbumin from 11/18/17 was 21.3. Encourage nutritional supplementation with protein to help the healing process. CT Pelvis was done on 11/07/17. It showed right buttocks and upper posterior thigh decubitus ulcer with granulation tissue and air pocket extending to the ischial tuberosity appear larger when compared to the previous study. There is osteosclerosis in the ischial tuberosity with irregular periosteal bone formation suggesting chronic osteomyelitis. Today he denies fever. His appetite is good. It was noted according to his insurance carrier that he didn't qualify for HBO treatments at this time. Progress of Wound: Improved. - Physical Exam Vital Signs Temp Pulse Resp BP 95 F L 97 16 108/74 02/22/18 11:14 02/22/18 11:14 02/22/18 11:14 02/22/18 11:14 Wound Measurements and Assessment WC - Nurse 1 - General Ulcer Measurement Start: 02/22/18 11:14 Freq: Status: Active Protocol: Activity Type Activity Date Activity User E-Sign Co-Sign Detail Recorded Client Recorded Date Recorded By Document 02/22/18 11:14 [facility] [id number] 02/22/18 11:29 [facility] 02/22/18 11:14 Wound Center Nurse 1 [Ulcer Assessment] #1 RT ISCHIUM- POST OP -Combined with other wound No -Current Size (cm) - Length 5.5 -Current Size (cm) - Width 3 -Current Size (cm) - Depth 2.4 -Total Square Cm 16.5 -Date of Last Picture (Recall this 02/22/18 field) -Photo Taken Yes -Epithelialization None Present -Tunneling Yes -Tunneling Position (O'clock) 12 -Tunneling Distance (cm) 2.5 -Undermining/Tunneling No -Circular Undermining No -Exudate Amt Large (67-100%) -Exudate Type Serosanguineous -Wound Margin Distinct, Outline Attached -Granulation Amt Large (67-100%) -Granulation Quality Red -Slough/Fibrin No -Texture (Elizabeth-wound Skin Appearance) Scarring -Moisture (Elizabeth-wound Skin Appearance Maceration ) Dry/Scaly -Color (Elizabeth-wound Skin Appearance) Erythema Palor -Temperature (Elizabeth-wound Skin No Abnormality Appearance) (Pt Warm) -Tenderness on Palpation (Elizabeth-wound No Skin Appearance) -Ulcer Cleansing Rinsed/ Irrigated with Saline -Foul Odor after Cleansing No -Anesthetic Used 4% Lidocaine Solution - Nurse 2 - General Ulcer CM Notes Start: 02/22/18 11:14 Freq: Status: Active Protocol: Activity Type Activity Date Activity User E-Sign Co-Sign Detail Recorded Client Recorded Date Recorded By Document 02/22/18 11:51 [facility] [id number] 02/22/18 11:53 02/22/18 11:51 Wound Center Nurse 2 [Procedure/Treatment] -Time 11:52 -Correct Patient Yes -Correct Side, Site, Position Yes -Correct Procedure Yes -Procedure Performed Yes -Type of Procedure Debridement -Clinical Debridement Muscle -Post Debridement Size (cm) - Length 5.6 -Post Debridement Size (cm) - Width 3 -Post Debridement Size (cm) - Depth 2.4 -Total Square Cm 16.8 -Wound/Ulcer Outcome Not Healed -Ulcer Cleansing Rinsed/ Irrigated with Saline -Foul Odor after Cleansing No -Bioengineered Tissue No -Bleeding Controlled with Pressure -Treatment Response Procedure Tolerated Well [See Physician Procedure note for Specifics] Pain Scale: 0-10 Numeric [Pain] -Is Patient Pain Free? Yes Debridement Note Post-Debridement Measurements/Treatment - Nurse 2 - General Ulcer CM Notes Start: 02/22/18 11:14 Freq: Status: Active Protocol: Activity Type Activity Date Activity User E-Sign Co-Sign Detail Recorded Client Recorded Date Recorded By Document 02/22/18 11:51 [facility] [id number] 02/22/18 11:53 02/22/18 11:51 Wound Center Nurse 2 #1 RT ISCHIUM- POST OP -Time 11:52 -Correct Patient Yes -Correct Side, Site, Position Yes -Correct Procedure Yes -Procedure Performed Yes -Type of Procedure Debridement -Clinical Debridement Muscle -Post Debridement Size (cm) - Length 5.6 -Post Debridement Size (cm) - Width 3 -Post Debridement Size (cm) - Depth 2.4 -Total Square Cm 16.8 -Wound/Ulcer Outcome Not Healed -Ulcer Cleansing Rinsed/ Irrigated with Saline -Foul Odor after Cleansing No -Bioengineered Tissue No -Bleeding Controlled with Pressure -Treatment Response Procedure Tolerated Well Pain Scale: 0-10 Numeric Is Patient Pain Free? Yes Wound debrided: #1 Right ischial area. Laterality: Right Wound Grade/Stage: IV. Type of Debridement: Excisional debridement Anesthesia Used: 4% Lidocaine Solution Depth: Down to and including healthy tissue, in the subcutaneous layer, to muscle, to bone - bone is palpable but not debrided. Percentage of wound debrided: 100 Instrument Used: 7mm curette Tissue Removed: subcutaneous tissue and muscle. Severity: Fat Layer Exposed - muscle is exposed. bone is palpable but not debrided. Amount of bleeding with debridement: Mild Bleeding Controlled with: Pressure Patient tolerated procedure well Assessment/Plan Assessment: 1. Right ischial pressure sore, stage IV. 2. Paraplegia. 3. History of osteomyelitis. 4. s/p excision right ischial pressure sore, Stage IV, with partial ostectomy for osteomyelitis. Plan: Continue Silver dressing changes daily with Sorbian Sachet for absorption of drainage. His operative cultures in soft tissue and bone showed Enterobacter cloacae. Combined with the preop cultures that showed Staphylococcus haemolyticus and Aerococcus viridans, he was discharged on Vancomycin, Levaquin, and Diflucan. He has finished the Vancomycin and the Levaquin. A wound culture from 01/11/18 showed Staphylococcus lentus and Granulicatella adiacens. He was placed on Doxycycline and is finishing them. A CT Pelvis was done on 11/07/17. It was suspicious for osteomyelitis. Pathology was negative for osteomyelitis. At this time the insurance carrier has denied his HBO treatments. Patient needs to wait 4 months with continued treatments (surgery, wound care, and antibiotics). Will repeat the CT at that time. If still suspicious for osteomyelitis, will reapply for HBO treatments for chronic refractory osteomyelitis. Prealbumin from 11/18/17 was 21.3. Encourage nutritional supplementation with protein to help the healing process. Followup 2 weeks.
--- NOTE | 2018-02-24 21:59 | PN.PCM_ITS ---
Type of Wound Date of Service: 02/22/18 Chief Complaint: Right ischial pressure sore, Stage IV. History of Wound: Surgery 11/17/17 - Excision right ischial pressure sore, Stage IV, with partial ostectomy for osteomyelitis. Wound care - Silver. Operative culture, bone and soft tissue - Enterobacter cloacae. Preop culture showed Staphylococcus haemolyticus and Aerococcus viridans. He was discharged on Vancomycin, and Levaquin, and Diflucan. He has finished the Vancomycin and the Levaquin. Another wound culture from 01/11/18 showed Staphylococcus lentus and Granulicatella adiacens. He was started on Doxycycline and is finishing them. Pathology - negative for osteomyelitis. Prealbumin from 11/18/17 was 21.3. Encourage nutritional supplementation with protein to help the healing process. CT Pelvis was done on 11/07/17. It showed right buttocks and upper posterior thigh decubitus ulcer with granulation tissue and air pocket extending to the ischial tuberosity appear larger when compared to the previous study. There is osteosclerosis in the ischial tuberosity with irregular periosteal bone formation suggesting chronic osteomyelitis. Today he denies fever. His appetite is good. It was noted according to his insurance carrier that he didn't qualify for HBO treatments at this time. Progress of Wound: Improved. - Physical Exam Vital Signs Temp Pulse Resp BP 95 F L 97 16 108/74 02/22/18 11:14 02/22/18 11:14 02/22/18 11:14 02/22/18 11:14 Wound Measurements and Assessment WC - Nurse 1 - General Ulcer Measurement Start: 02/22/18 11:14 Freq: Status: Active Protocol: Activity Type Activity Date Activity User E-Sign Co-Sign Detail Recorded Client Recorded Date Recorded By Document 02/22/18 11:14 [facility] [id number] 02/22/18 11:29 [facility] 02/22/18 11:14 Wound Center Nurse 1 [Ulcer Assessment] #1 RT ISCHIUM- POST OP -Combined with other wound No -Current Size (cm) - Length 5.5 -Current Size (cm) - Width 3 -Current Size (cm) - Depth 2.4 -Total Square Cm 16.5 -Date of Last Picture (Recall this 02/22/18 field) -Photo Taken Yes -Epithelialization None Present -Tunneling Yes -Tunneling Position (O'clock) 12 -Tunneling Distance (cm) 2.5 -Undermining/Tunneling No -Circular Undermining No -Exudate Amt Large (67-100%) -Exudate Type Serosanguineous -Wound Margin Distinct, Outline Attached -Granulation Amt Large (67-100%) -Granulation Quality Red -Slough/Fibrin No -Texture (Elizabeth-wound Skin Appearance) Scarring -Moisture (Elizabeth-wound Skin Appearance Maceration ) Dry/Scaly -Color (Elizabeth-wound Skin Appearance) Erythema Palor -Temperature (Elizabeth-wound Skin No Abnormality Appearance) (Pt Warm) -Tenderness on Palpation (Elizabeth-wound No Skin Appearance) -Ulcer Cleansing Rinsed/ Irrigated with Saline -Foul Odor after Cleansing No -Anesthetic Used 4% Lidocaine Solution - Nurse 2 - General Ulcer CM Notes Start: 02/22/18 11:14 Freq: Status: Active Protocol: Activity Type Activity Date Activity User E-Sign Co-Sign Detail Recorded Client Recorded Date Recorded By Document 02/22/18 11:51 [facility] [id number] 02/22/18 11:53 02/22/18 11:51 Wound Center Nurse 2 [Procedure/Treatment] -Time 11:52 -Correct Patient Yes -Correct Side, Site, Position Yes -Correct Procedure Yes -Procedure Performed Yes -Type of Procedure Debridement -Clinical Debridement Muscle -Post Debridement Size (cm) - Length 5.6 -Post Debridement Size (cm) - Width 3 -Post Debridement Size (cm) - Depth 2.4 -Total Square Cm 16.8 -Wound/Ulcer Outcome Not Healed -Ulcer Cleansing Rinsed/ Irrigated with Saline -Foul Odor after Cleansing No -Bioengineered Tissue No -Bleeding Controlled with Pressure -Treatment Response Procedure Tolerated Well [See Physician Procedure note for Specifics] Pain Scale: 0-10 Numeric [Pain] -Is Patient Pain Free? Yes Debridement Note Post-Debridement Measurements/Treatment - Nurse 2 - General Ulcer CM Notes Start: 02/22/18 11:14 Freq: Status: Active Protocol: Activity Type Activity Date Activity User E-Sign Co-Sign Detail Recorded Client Recorded Date Recorded By Document 02/22/18 11:51 [facility] [id number] 02/22/18 11:53 02/22/18 11:51 Wound Center Nurse 2 #1 RT ISCHIUM- POST OP -Time 11:52 -Correct Patient Yes -Correct Side, Site, Position Yes -Correct Procedure Yes -Procedure Performed Yes -Type of Procedure Debridement -Clinical Debridement Muscle -Post Debridement Size (cm) - Length 5.6 -Post Debridement Size (cm) - Width 3 -Post Debridement Size (cm) - Depth 2.4 -Total Square Cm 16.8 -Wound/Ulcer Outcome Not Healed -Ulcer Cleansing Rinsed/ Irrigated with Saline -Foul Odor after Cleansing No -Bioengineered Tissue No -Bleeding Controlled with Pressure -Treatment Response Procedure Tolerated Well Pain Scale: 0-10 Numeric Is Patient Pain Free? Yes Wound debrided: #1 Right ischial area. Laterality: Right Wound Grade/Stage: IV. Type of Debridement: Excisional debridement Anesthesia Used: 4% Lidocaine Solution Depth: Down to and including healthy tissue, in the subcutaneous layer, to muscle, to bone - bone is palpable but not debrided. Percentage of wound debrided: 100 Instrument Used: 7mm curette Tissue Removed: subcutaneous tissue and muscle. Severity: Fat Layer Exposed - muscle is exposed. bone is palpable but not debrided. Amount of bleeding with debridement: Mild Bleeding Controlled with: Pressure Patient tolerated procedure well Assessment/Plan Assessment: 1. Right ischial pressure sore, stage IV. 2. Paraplegia. 3. History of osteomyelitis. 4. s/p excision right ischial pressure sore, Stage IV, with partial ostectomy for osteomyelitis. Plan: Continue Silver dressing changes daily with Sorbian Sachet for absorption of drainage. His operative cultures in soft tissue and bone showed Enterobacter cloacae. Combined with the preop cultures that showed Staphylococcus haemolyticus and Aerococcus viridans, he was discharged on Vancomycin, Levaquin, and Diflucan. He has finished the Vancomycin and the Levaquin. A wound culture from 01/11/18 showed Staphylococcus lentus and Granulicatella adiacens. He was placed on Doxycycline and is finishing them. A CT Pelvis was done on 11/07/17. It was suspicious for osteomyelitis. Pathology was negative for osteomyelitis. At this time the insurance carrier has denied his HBO treatments. Patient needs to wait 4 months with continued treatments (surgery, wound care, and antibiotics). Will repeat the CT at that time. If still suspicious for osteomyelitis, will reapply for HBO treatments for chronic refractory osteomyelitis. Prealbumin from 11/18/17 was 21.3. Encourage nutritional supplementation with protein to help the healing process. Followup 2 weeks.
[2018-03-08 12:37] VITALS: BP 95/53; PULSE 89; RESP 18; TEMP 35.7
--- NOTE | 2018-03-08 22:13 | PN.PCM_ITS ---
Type of Wound Date of Service: 03/08/18 Chief Complaint: Right ischial pressure sore, Stage IV. History of Wound: Surgery 11/17/17 - Excision right ischial pressure sore, Stage IV, with partial ostectomy for osteomyelitis. Wound care - Silver. Operative culture, bone and soft tissue - Enterobacter cloacae. Preop culture showed Staphylococcus haemolyticus and Aerococcus viridans. He was discharged on Vancomycin, and Levaquin, and Diflucan. He has finished the Vancomycin and the Levaquin. Another wound culture from 01/11/18 showed Staphylococcus lentus and Granulicatella adiacens. He was started on Doxycycline and stopped them because of GI issues. There was some undermining in the ulcer today. Patient states he had some family issues and had spent more time in his wheelchair. Pathology - negative for osteomyelitis. Prealbumin from 11/18/17 was 21.3. Encourage nutritional supplementation with protein to help the healing process. CT Pelvis was done on 11/07/17. It showed right buttocks and upper posterior thigh decubitus ulcer with granulation tissue and air pocket extending to the ischial tuberosity appear larger when compared to the previous study. There is osteosclerosis in the ischial tuberosity with irregular periosteal bone formation suggesting chronic osteomyelitis. Today he denies fever. His appetite is good. It was noted according to his insurance carrier that he didn't qualify for HBO treatments at this time. Progress of Wound: Improved but some undermining is present. - Physical Exam Vital Signs Temp Pulse Resp BP 96.2 F L 89 18 95/53 L 03/08/18 12:37 03/08/18 12:37 03/08/18 12:37 03/08/18 12:37 Wound Measurements and Assessment WC - Nurse 1 - General Ulcer Measurement Start: 02/22/18 11:14 Freq: Status: Active Protocol: Activity Type Activity Date Activity User E-Sign Co-Sign Detail Recorded Client Recorded Date Recorded By Document 03/08/18 12:37 [id number] 03/08/18 12:39 TM 03/08/18 12:37 Wound Center Nurse 1 [Ulcer Assessment] #1 RT ISCHIUM- POST OP -Combined with other wound No -Current Size (cm) - Length 7.5 -Current Size (cm) - Width 3.0 -Current Size (cm) - Depth 2.5 -Total Square Cm 22.50 -Photo Taken No -Epithelialization Small 1-33% -Tunneling Yes -Tunneling Position (O'clock) 12 -Tunneling Distance (cm) 3.4 -Undermining/Tunneling No -Circular Undermining No -Classification - Thickness Full Thickness with Exposed Support Structure -Exudate Amt Large (67-100%) -Exudate Type Serosanguineous -Wound Margin Distinct, Outline Attached -Granulation Amt Large (67-100%) -Granulation Quality [place] -Slough/Fibrin Yes -Necrosis Amt Small (1-33%) -Necrotic Tissue Type Adherent Slough -Structure Exposed Fascia Muscle Bone Fat Layer Exposed -Texture (Elizabeth-wound Skin Appearance) Assessed Friable Scarring -Moisture (Elizabeth-wound Skin Appearance No Abnormality ) Assessed -Color (Elizabeth-wound Skin Appearance) No Abnormality Assessed -Temperature (Elizabeth-wound Skin No Abnormality Appearance) (Pt Warm) -Tenderness on Palpation (Elizabeth-wound No Skin Appearance) -Ulcer Cleansing Rinsed/ Irrigated with Saline -Foul Odor after Cleansing No -Anesthetic Used 5% Lidocaine Gel [Edema Assessment] -Lower Limb Edema Present No WC - Nurse 2 - General Ulcer CM Notes Start: 02/22/18 11:14 Freq: Status: Active Protocol: Activity Type Activity Date Activity User E-Sign Co-Sign Detail Recorded Client Recorded Date Recorded By Document 03/08/18 12:45 LIANE [id number] 03/08/18 12:46 LIANE 03/08/18 12:45 Wound Center Nurse 2 [Procedure/Treatment] #1 RT ISCHIUM- POST OP -Time 12:45 -Correct Patient Yes -Correct Side, Site, Position Yes -Correct Procedure Yes -Procedure Performed Yes -Type of Procedure Debridement -Clinical Debridement Muscle -Post Debridement Size (cm) - Length 7.5 -Post Debridement Size (cm) - Width 3.1 -Post Debridement Size (cm) - Depth 2.5 -Total Square Cm 23.25 -Wound/Ulcer Outcome Amputation -Ulcer Cleansing Rinsed/ Irrigated with Saline -Foul Odor after Cleansing No -Bioengineered Tissue No -Bleeding Controlled with Pressure -Treatment Response Procedure Tolerated Well [See Physician Procedure note for Specifics] Pain Scale: 0-10 Numeric [Pain] -Is Patient Pain Free? Yes Debridement Note Post-Debridement Measurements/Treatment WC - Nurse 2 - General Ulcer CM Notes Start: 02/22/18 11:14 Freq: Status: Active Protocol: Activity Type Activity Date Activity User E-Sign Co-Sign Detail Recorded Client Recorded Date Recorded By Document 02/22/18 11:51 [id number] 02/22/18 11:53 Document 03/08/18 12:45 [id number] 03/08/18 12:46 02/22/18 03/08/18 11:51 12:45 Wound Center Nurse 2 #1 RT ISCHIUM- POST OP -Time 11:52 12:45 -Correct Patient Yes Yes -Correct Side, Site, Position Yes Yes -Correct Procedure Yes Yes -Procedure Performed Yes Yes -Type of Procedure Debridement Debridement -Clinical Debridement Muscle Muscle -Post Debridement Size (cm) - Length 5.6 7.5 -Post Debridement Size (cm) - Width 3 3.1 -Post Debridement Size (cm) - Depth 2.4 2.5 -Total Square Cm 16.8 23.25 -Wound/Ulcer Outcome Not Healed Amputation -Ulcer Cleansing Rinsed/ Rinsed/ Irrigated with Irrigated with Saline Saline -Foul Odor after Cleansing No No -Bioengineered Tissue No No -Bleeding Controlled with Pressure Pressure -Treatment Response Procedure Procedure Tolerated Well Tolerated Well Pain Scale: 0-10 Numeric Is Patient Pain Free? Yes Yes Wound debrided: #1 Right ischial area. Laterality: Right Wound Grade/Stage: IV. Type of Debridement: Excisional debridement Anesthesia Used: 4% Lidocaine Solution Depth: Down to and including healthy tissue, in the subcutaneous layer, to muscle, to bone - bone is palpable but not debrided. Percentage of wound debrided: 100 Instrument Used: 7mm curette Tissue Removed: subcutaneous tissue and muscle. Severity: Fat Layer Exposed - muscle is exposed. Bone is palpable but not debrided. Some undermining noted. Amount of bleeding with debridement: Mild Bleeding Controlled with: Pressure Patient tolerated procedure well Assessment/Plan Assessment: 1. Right ischial pressure sore, stage IV. 2. Paraplegia. 3. History of osteomyelitis. 4. s/p excision right ischial pressure sore, Stage IV, with partial ostectomy for osteomyelitis. Plan: Continue Silver dressing changes daily with Sorbian Sachet for absorption of drainage. His operative cultures in soft tissue and bone showed Enterobacter cloacae. Combined with the preop cultures that showed Staphylococcus haemolyticus and Aerococcus viridans, he was discharged on Vancomycin, Levaquin, and Diflucan. He has finished the Vancomycin and the Levaquin. A wound culture from 01/11/18 showed Staphylococcus lentus and Granulicatella adiacens. He was placed on Doxycycline and stopped them because of GI issues. There was some undermining in the ulcer today. Patient states he had some family issues and had spent more time in his wheelchair. At his next visit, if there is more undermining, then another wound culture will be done. A CT Pelvis was done on 11/07/17. It was suspicious for osteomyelitis. Pathology was negative for osteomyelitis. At this time the insurance carrier has denied his HBO treatments. Patient needs to wait 4 months with continued treatments (surgery, wound care, and antibiotics). Will repeat the CT next month. If still suspicious for osteomyelitis, will reapply for HBO treatments for chronic refractory osteomyelitis. Prealbumin from 11/18/17 was 21.3. Encourage nutritional supplementation with protein to help the healing process. Followup 3 weeks.
== END 2018-03-12 23:59 ==
LOC: WC 10:45
PROVIDERS: Family Provider Preventive Medicine Occupational Medicine; PCP Preventive Medicine Occupational Medicine; Visit Provider Surgery
DX: L89.214 Pressure ulcer of right hip, stage 4 (principal); G82.20 Paraplegia, unspecified
CPT/HCPCS: 11043; 11046

== ENCOUNTER → 2018-03-26 13:35 | Outpatient (CLI) | payer BC, MEDICARE, SELFPAY ==
--- OUTSIDE RECORDS SUMMARY | 2018-06-30 04:10 | XMS RPT_ITS ---
:1965 Author Organization [place] Support Name Relationship Address Phone YOANDY ALONSO Unavailable [address] + [place] [address] D Unavailable Unavailable Unavailable NAKUL, TOVA Unavailable [address] + [place] [address] YOANDY ALONSO Unavailable [address] + [place] [address] D Unavailable Unavailable Unavailable NAKUL, TOVA Unavailable [address] + [place] [address] YOANDY ALONSO Unavailable [address] + [place] [address] D Unavailable Unavailable Unavailable NAKUL, TOVA Unavailable [address] + [place] [address] YOANDY ALONSO Unavailable [address] + [place] [address] D Unavailable Unavailable Unavailable NAKUL, TOVA Unavailable [address] + [place] [address] YOANDY ALONSO Unavailable [address] + [place] [address] D Unavailable Unavailable Unavailable NAKUL, TOVA Unavailable [address] + [place] [address] YOANYD ALONSO Unavailable [address] + [place] [address] D Unavailable Unavailable Unavailable NAKUL, TOVA Unavailable [address] + [place] [address] YOANDY ALONSO Unavailable [address] + [place] [address] D Unavailable Unavailable Unavailable NAKUL, TOVA Unavailable [address] + [place] [address] ALONSO, YOANDY Unavailable [address] + [place] [address] D Unavailable Unavailable Unavailable NAKUL, TOVA Unavailable [address] + [place] [address] ALONSO, YOANDY Unavailable [address] + [place] [address] D Unavailable Unavailable Unavailable NAKUL, TOVA Unavailable [address] + [place] [address] ALONSO, YOANDY Unavailable [address] + [place] [address] D Unavailable Unavailable Unavailable NAKUL, TOVA Unavailable [address] + [place] [address] ALONSO, YOANDY Unavailable [address] + [place] [address] D Unavailable Unavailable Unavailable NAKUL, TOVA Unavailable [address] + [place] [address] ALONSO, YOANDY Unavailable [address] + [place] [address] D Unavailable Unavailable Unavailable NAKUL, TOVA Unavailable [address] + [place] [address] ALONSO, YOANDY Unavailable [address] + [place] [address] D Unavailable Unavailable Unavailable NAKUL, TOVA Unavailable [address] + [place] [address] GAVIN, YOANDY Unavailable [address] + [place] [address] D Unavailable Unavailable Unavailable NAKUL, TOVA Unavailable [address] + [place] [address] ALONSO, YOANDY Unavailable [address] + [place] [address] D Unavailable Unavailable Unavailable NAKUL, TOVA Unavailable [address] + [place] [address] ALONSO, YOANDY Unavailable [address] + [place] [address] D Unavailable Unavailable Unavailable NAKUL, TOVA Unavailable [address] + [place] [address] NAKUL, TOVA Unavailable [address] + [place] [address] NAKUL, TOVA Unavailable [address] + [place] [address] KHANG ALONSORA Unavailable [address] + [place] [address] D Unavailable Unavailable Unavailable NAKUL, TOVA Unavailable [address] + [place] [address] KHANG ALONSORA Unavailable [address] + [place] [address] D Unavailable Unavailable Unavailable NAKUL, TOVA Unavailable [address] + [place] [address] GAVIN YOANDY Unavailable [address] + [place] [address] D Unavailable Unavailable Unavailable NAKUL, TOVA Unavailable [address] + [place] [address] GAVIN YOANDY Unavailable [address] + [place] [address] D Unavailable Unavailable Unavailable NAKUL, TOVA Unavailable [address] + [place] [address] GAVIN YOANDY Unavailable [address] + [place] [address] D Unavailable Unavailable Unavailable NAKUL, TOVA Unavailable [address] + [place] [address] GAVIN YOANDY Unavailable [address] + [place] [address] D Unavailable Unavailable Unavailable NAKUL, TOVA Unavailable [address] + [place] [address] GAVIN YOANDY Unavailable [address] + [place] [address] D Unavailable Unavailable Unavailable NAKUL, TOVA Unavailable [address] + [place] [address] GAVIN YOANDY Unavailable [address] + [place] [address] D Unavailable Unavailable Unavailable NAKUL, TOVA Unavailable [address] + [place] [address] ALONSO, YOANDY Unavailable [address] + [place] [address] D Unavailable Unavailable Unavailable NAKUL, TOVA Unavailable [address] + [place] [address] ALONSO, YOANDY Unavailable [address] + [place] [address] D Unavailable Unavailable Unavailable NAKUL, TOVA Unavailable [address] + [place] [address] ALONSO, YOANDY Unavailable [address] + [place] [address] D Unavailable Unavailable Unavailable NAKUL, TOVA Unavailable [address] + [place] [address] ALONSO, YOANDY Unavailable [address] + [place] [address] D Unavailable Unavailable Unavailable NAKUL, TOVA Unavailable [address] + [place] [address] ALONSO, YOANDY Unavailable [address] + [place] [address] D Unavailable Unavailable Unavailable NAKUL, TOVA Unavailable [address] + [place] [address] ALONSO, YOANDY Unavailable [address] + [place] [address] D Unavailable Unavailable Unavailable NAKUL, TOVA Unavailable [address] + [place] [address] ALONSO, YOANDY Unavailable [address] + [place] [address] D Unavailable Unavailable Unavailable NAKUL, TOVA Unavailable [address] + [place] [address] ALONSO, YOANDY Unavailable [address] + [place] [address] D Unavailable Unavailable Unavailable NAKUL, TOVA Unavailable [address] + [place] [address] ALONSO, YOANDY Unavailable [address] + [place] [address] D Unavailable Unavailable Unavailable NAKUL, TOVA Unavailable [address] + [place] [address] YOANDY ALONSO Unavailable [address] + [place] [address] D Unavailable Unavailable Unavailable NAKUL, TOVA Unavailable [address] + [place] [address] KHANG ALONSORA Unavailable [address] + [place] [address] D Unavailable Unavailable Unavailable NAKUL, TOVA Unavailable [address] + [place] [address] YOANDY ALONSO Unavailable [address] + [place] [address] D Unavailable Unavailable Unavailable NAKUL, TOVA Unavailable [address] + [place] [address] YOANDY ALONSO Unavailable [address] + [place] [address] D Unavailable Unavailable Unavailable NAKUL, TOVA Unavailable [address] + [place] [address] YOANDY ALONSO Unavailable [address] + [place] [address] D Unavailable Unavailable Unavailable NAKUL, TOVA Unavailable [address] + [place] [address] YOANDY ALONSO Unavailable [address] + [place] [address] D Unavailable Unavailable Unavailable NAKUL, TOVA Unavailable [address] + [place] [address] KHANG ALONSORA Unavailable [address] + [place] [address] D Unavailable Unavailable Unavailable NAKUL, TOVA Unavailable [address] + [place] [address] KHANG ALONSORA Unavailable [address] + [place] [address] D Unavailable Unavailable Unavailable NAKUL, TOVA Unavailable [address] + [place] [address] Care Team Providers Name Role Phone KELLY, JESSICA Attending Unavailable KELLY, JESSICA Referring Unavailable KELLY, JESSICA Primary Care Unavailable NitaChanell nolen Attending Unavailable Nita, Chanell Taylor Referring Unavailable Kelly, Jessica Primary Care Unavailable Slaby, Addison Attending Unavailable Kelly, Jessica Primary Care Unavailable Slaby, Addison Attending Unavailable Kelly, Jessica Primary Care Unavailable Slaby, Addison Consulting Unavailable NitaChanell nolen Attending Unavailable NitaChanell nolen Referring Unavailable Kelly, Jessica Primary Care Unavailable Slaby, Addison Attending Unavailable Slaby, Addison Referring Unavailable Kelly, Jessica Primary Care Unavailable Slabtsering, Addison Attending Unavailable Slaby, Addison Referring Unavailable Kelly, Jessica Primary Care Unavailable DeHorta, William Consulting Unavailable Jesus Manuel, Addison Attending Unavailable Slabtsering, Addison Referring Unavailable Kelly, Jessica Primary Care Unavailable DeHorta, William Consulting Unavailable Addison Ken Consulting Unavailable Jesus Manuel, Addison Attending Unavailable Jesus Manuel, Addison Referring Unavailable Kelly, Jessica Primary Care Unavailable Slabtsering, Addison Attending Unavailable Kelly, Jessica Primary Care Unavailable Slabtsering, Addison Attending Unavailable Kelly, Jessica Primary Care Unavailable Slaby, Addison Attending Unavailable Kelly, Jessica Primary Care Unavailable Slaby, Addison Attending Unavailable Kelly, Jessica Primary Care Unavailable Addison Ken Consulting Unavailable Jesus Manuel, Addison Attending Unavailable Kelly, Jessica Primary Care Unavailable Slaby, Addison Consulting Unavailable Jesus Manuel, Addison Attending Unavailable Kelly, Jessica Primary Care Unavailable SlabAddison cagle Consulting Unavailable Jesus Manuel, Addison Attending Unavailable Kelly, Jessica Primary Care Unavailable Martín Carr Attending Unavailable LillyMartín Referring Unavailable Kelly, Jessica Primary Care Unavailable Slaby, Addison Attending Unavailable Kelly, Jessica Primary Care Unavailable Slaby, Addison Attending Unavailable Kelly, Jessica Primary Care Unavailable Slaby, Addison Attending Unavailable Kelly, Jessica Primary Care Unavailable Addison Ken Consulting Unavailable Jesus Manuel, Addison Attending Unavailable Kelly, Jessica Primary Care Unavailable Slaby, Addison Consulting Unavailable Jesus Manuel, Addison Attending Unavailable Kelly, Jessica Primary Care Unavailable Slabtsering, Addison Attending Unavailable Kelly, Jessica Primary Care Unavailable SlabAddison cagle Consulting Unavailable Jesus Manuel, Addison Attending Unavailable Kelly, Jessica Primary Care Unavailable Slaby, Addison Consulting Unavailable Jesus Manuel, Addison Attending Unavailable Kelly, Jessica Primary Care Unavailable Noemy Palmer Attending Unavailable Kelly, Jessica Primary Care Unavailable Slaby, Addison Consulting Unavailable Slaby, Addison Attending Unavailable Kelly, Jessica Primary Care Unavailable Slaby, Addison Consulting Unavailable Slaby, Addison Attending Unavailable Kelly, Jessica Primary Care Unavailable Slaby, Addison Consulting Unavailable Slaby, Addison Attending Unavailable Kelly, Jessica Primary Care Unavailable Moodispaw, Franky Attending Unavailable Slaby, Addison Referring Unavailable Slaby, Addison Attending Unavailable Kelly, Jessica Primary Care Unavailable Slaby, Addison Consulting Unavailable Slaby, Addison Attending Unavailable Kelly, Jessica Primary Care Unavailable Slaby, Addison Consulting Unavailable Slaby, Addison Attending Unavailable Kelly, Jessica Primary Care Unavailable Slaby, Addison Consulting Unavailable Slaby, Addison Attending Unavailable Kelly, Jessica Primary Care Unavailable Slaby, Addison Consulting Unavailable Slaby, Addison Attending Unavailable Kelly, Jessica Primary Care Unavailable Slaby, Addison Consulting Unavailable Slaby, Addison Attending Unavailable Slaby, Addison Referring Unavailable Kelly, Jessica Primary Care Unavailable Slaby, Addison Attending Unavailable Kelly, Jessica Primary Care Unavailable Slaby, Addison Attending Unavailable Kelly, Jessica Primary Care Unavailable Slaby, Addison Consulting Unavailable Slaby, Addison Referring Unavailable Slaby, Addison Attending Unavailable Kelly, Jessica Primary Care Unavailable Slaby, Addison Attending Unavailable Slaby, Addison Referring Unavailable Kelly, Jessica Primary Care Unavailable Slaby, Addison Attending Unavailable Kelly, Jessica Primary Care Unavailable Slaby, Addison Attending Unavailable Kelly, Jessica Primary Care Unavailable PROBLEMS PROBLEMS DATE TYPE CONDITION / CODE ATTENDING STATUS SOURCE 01/11/2018 Unknown 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, stage 4 / Hospital L89.314(ICD-10) Repository 01/04/2018 Unknown M86.152 - Other Addison Ken Active [facility] acute osteomyelitis, [facility] left femur / Hospital M86.152(ICD-10) Repository 01/04/2018 Unknown B96.89 - Other Addison Ken Active [facility] specified bacterial Community agents as the cause Hospital of diseases Repository classified elsewhere / B96.89(ICD-10) 11/25/2017 Unknown M86.9 - Addison Ken Active [facility] Osteomyelitis, [facility] unspecified / Hospital M86.9(ICD-10) Repository 12/28/2017 Unknown Z01.810 - Encounter Franky Cartwright Active [facility] for preprocedural [facility] cardiovascular Hospital examination / Repository Z01.810(ICD-10) 12/20/2017 Unknown L89.214 - Pressure SlabAddison cagle Active [facility] ulcer of right hip, [facility]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 / Hospital L89.214(ICD-10) Repository 07/16/2017 Unknown R30.0 - Dysuria / LillyMartín lopez Active [facility] R30.0(ICD-10) [facility] Repository PROCEDURES PROCEDURES No Procedure Records FoundRESULTS RESULTS Observed: 03/29/2018 Status: F Source: [facility] CULTURE, DEEP WOUND 3:16 PM [facility] REPOS[facility]ORY Gram Stain Gram Stain 4+ Red Blood Cells 1+ White Blood Cells Rare Gram positive cocci Wound Culture ORGANISM 1: Citrobacter freundii Amount Growth 1+ ORGANISM 2: Enterococcus faecalis Amount Growth 2+ ORGANISM 3: Streptococcus mitis/ oralis ORGANISM 4: Corynebacterium minutissimum Amount Growth 1+ Citrobacter freundii: REACTION Amoxacillin/Clavulanic Acid $ 4 R Cefazolin $ >=64 R Cefepime $ <=1 S Ceftriaxone $ <=1 S Ciprofloxacin $ <=0.25 S Ertapenim $$$ <=0.5 S Gentamicin $ <=1 S Imipenem *NF <=0.25 S Levofloxacin $ <=0.12 S Tobramycin $ <=1 S Trimethoprim/Sulfametho $ <=20 S (NF) indicates non-formulary drug at [facility]. Approval by Infectious Disease Specialist required before non-formulary drugs may be ordered and/or dispensed. Enterococcus faecalis: REACTION Ampicillin $ <=2 S Benzylpenicillin NF 4 S Gentamicin SYN-S S Linezolid $$$$ 2 S Tigecycline $$$$ <=0.12 S Streptomycin $ SYN-S S Vancomycin $ 1 S (NF) indicates non-formulary drug at [facility]. Approval by Infectious Disease Specialist required before non-formulary drugs may be ordered and/or dispensed. * CLSI guidelines does not recommend testing of cephalosporins. This interpretation is deduced from Beta-lactam/penicillin results. Streptococcus mitis/ oralis: REACTION Ampicillin $ <=0.25 S Clindamycin $$ <=0.25 S Erythromycin $ 2 R Tigecycline $$$$ <=0.06 S Vancomycin $ 0.5 S (NF) indicates non-formulary drug at [facility]. Approval by Infectious Disease Specialist required before non-formulary drugs may be ordered and/or dispensed. * CLSI guidelines does not recommend testing of cephalosporins. This interpretation is deduced from Beta-lactam/penicillin results. Cult, Anaerobic No anaerobic bacteria isolated. Performed By: #### M100.1500 #### [facility] [address] [place], [place], [id number] Observed: 03/26/2018 Status: F Source: [facility] CULTURE, URINE 1:00 PM [facility] REPOS[facility]ORY Urine Culture ORGANISM 1: Citrobacter freundii [place] Count 25,000-50,000 ORGANISM 2: Enterococcus faecalis [place] Count 25,000-50,000 Citrobacter freundii: REACTION Amoxacillin/Clavulanic Acid $ 8 R Cefazolin $ >=64 R Cefepime $ <=1 S Ceftriaxone $ <=1 S Ciprofloxacin $ <=0.25 S Ertapenim $$$ <=0.5 S Gentamicin $ <=1 S Imipenem *NF <=0.25 S Levofloxacin $ <=0.12 S Nitrofurantoin $ <=16 S Tobramycin $ <=1 S Trimethoprim/Sulfametho $ <=20 S (NF) indicates non-formulary drug at [facility]. Approval by Infectious Disease Specialist required before non-formulary drugs may be ordered and/or dispensed. Enterococcus faecalis: REACTION Ampicillin $ <=2 S Benzylpenicillin NF 4 S Ciprofloxacin $ 2 I Gentamicin SYN-S S Levofloxacin $ 2 S Linezolid $$$$ 2 S Nitrofurantoin $ <=16 S Streptomycin $ SYN-S S Tetracycline NF >=16 R Vancomycin $ 1 S (NF) indicates non-formulary drug at [facility]. Approval by Infectious Disease Specialist required before non-formulary drugs may be ordered and/or dispensed. * CLSI guidelines does not recommend testing of cephalosporins. This interpretation is deduced from Beta-lactam/penicillin results. Performed By: #### M100.0650 #### [facility] [address] [place], [address] Observed: 01/11/2018 Status: F Source: [place] CULTURE, DEEP WOUND 11:35 AM [facility] REPOS[facility]ORY Gram Stain Gram Stain 4+ Red Blood Cells 1+ White Blood Cells No organisms seen Wound Culture #2 Gram positive etelvina suggestive of a diptheroid. There are no CLSI standards for interpretation of this Drug/Organism combination. #3 UNABLE TO PERFORM SENSITIVITY PANEL, NON VIABLE ORGANISM Clinical correlation necessary, Possible skin contamination. ORGANISM 1: Staphylococcus lentus Amount Growth 3+ ORGANISM 2: Gram positive etelvina Amount Growth 2+ ORGANISM 3: Granulicatella adiacens Amount Growth 1+ Staphylococcus lentus: REACTION Benzylpenicillin NF >=0.5 R Cefoxitin *NF + Clindamycin $$ <=0.25 S Inducable Clindamycin [place] - Erythromycin $ <=0.25 S Gentamicin $ <=0.5 S Levofloxacin $ >=8 R Oxacillin NF >=4 R Tigecycline $$$$ <=0.12 S Rifampin $$ <=0.5 S Tetracycline NF <=1 S Vancomycin $ 2 S (NF) indicates non-formulary drug at [facility]. Approval by Infectious Disease Specialist required before non-formulary drugs may be ordered and/or dispensed. * CLSI guidelines does not recommend testing of cephalosporins. This interpretation is deduced from Beta-lactam/penicillin results. Cult, Anaerobic No anaerobic bacteria isolated. Performed By: #### M100.1500 #### [facility] [address] [place], [place], [address] CBC-COMPLETE BLOOD CNT Collected: 12/28/2017 Status: F Source: [facility] NO DIFF 9:25 [facility] REPOSITORY TYPE CODE TESTS RESULT OUT OF RANGE REFERENCE UNITS LAB L100.1000 4.4-11.0 K/mm3 Normal WBC 6.4 LAB L100.1200 4.6-6.2 M/mm3 Normal RBC 4.70 LAB L100.1300 13.0-16.5 g/dl Low HGB 12.2 LAB L100.1400 40-54 % Low HCT 39.2 LAB L100.1500 80-94 fL Normal MCV 83.4 LAB L100.1600 27.0-32.0 pg Low MCH 26.0 LAB L100.1700 32-36 g/gl Low MCHC 31.1 LAB L100.1810 11.6-14.6 % Normal RDW CV 13.7 LAB L100.1820 35.1-43.9 fl Normal RDW SD 41.7 LAB L100.1900 150-450 K/mm3 Normal PLT 244 LAB L100.2000 6.2-12.0 fl Normal MPV 8.9 Performed By: #### L100.0500, L101.9900 #### [facility] [address] [place], [place], [address] ERYTHROCYTE SED RATE Collected: 12/28/2017 Status: F Source: [place] 9:25 AM [facility] REPOSITORY TYPE CODE TESTS RESULT OUT OF RANGE REFERENCE UNITS LAB L102.0000 0-20 mm/hr High SED RATE 21 Performed By: #### L100.0500, L101.9900 #### [facility] [address] [facility]. [place], [place], [address] COMPREHENSIVE METABOLIC Collected: 12/28/2017 Status: F Source: [facility] 9:25 AM [facility] REPOSITORY TYPE CODE TESTS RESULT OUT OF RANGE REFERENCE UNITS LAB L501.0100 74-106 mg/dL High GLU 149 Result Comment: Fasting Glucose result greater than or equal to 126 mg/dL suggests DIABETES MELLITUS per A.D.A. criteria. Please note revised GLUCOSE reference range effective 2017. LAB L501.1000 7-18 mg/dL High BUN 25 LAB L501.1100 0.70-1.30 mg/dL Low CREAT,SERUM 0.64 Result Comment: The validity of the calculated GFR AND GFRAA in patients over 70 years has not been determined. Clinical correlation is essential. LAB L501.1110 >60 mL/min Normal EST GFR 140 Result Comment: Non- GFR Calc LAB L501.1115 >60 mL/min Normal EST GFR - AA 169 Result Comment: GFR Calc LAB L501.1300 10-20 RATIO High BUN/CRE 39.1 LAB L501.1500 6.4-8.2 g/dL T Normal PROT 6.6 LAB L501.1800 3.2-5.0 g/dL Normal ALB 3.4 LAB L501.1950 2.2-4.2 g/dL Normal GLOB 3.2 LAB L501.2000 0.9-2.4 RATIO Normal A/G 1.1 LAB L501.2200 8.5-10.1 mg/dL CA Normal 8.6 LAB L501.4100 15-37 U/L Normal AST 15 LAB L501.4305 45-117 U/L Normal ALK P 82 LAB L501.4405 16-61 U/L Normal ALT 24 LAB L501.4600 0.20-1.00 mg/dL T Normal BILI 0.40 LAB L501.5300 136-145 mmol/L NA Normal 142 LAB L501.5600 3.5-5.1 mmol/L K Normal 3.7 LAB L501.5900 98-107 mmol/L CL Normal 105 LAB L501.6100 21.0-32.0 mmol/L Normal CO2 26.0 LAB L501.6200 5-15 Normal GAP 11 Performed By: #### L500.4050, L501.6710 #### [facility] [address] [facility]. [place], [place], [id number] CRP Collected: 12/28/2017 Status: F Source: [place] 9:25 AM [facility] REPOSITORY TYPE CODE TESTS RESULT OUT OF RANGE REFERENCE UNITS LAB L501.6710 0.0-3.0 mg/L High 13.90 C-REACTIVE PROT Result Comment: C-Reactive Protein (CRP) provides useful information for the diagnosis, therapy and monitoring of inflammatory processes and associated diseases. For the evaluation of Relative Risk for Cardiovascular Disease, a High Sensitivity CRP (HSCRP) should be ordered. Performed By: #### L500.4050, L501.6710 #### [facility] [address] [facility] [place], [address] VANCOMYCIN, TROUGH Collected: 12/28/2017 Status: F Source: [place] LEVEL 9:25 AM [facility] REPOS[facility]ORY Order Comment: Time Medication is to be Given? 1000 TYPE CODE TESTS RESULT OUT OF RANGE REFERENCE UNITS LAB L501.8820 5.0-15.0 ug/mL Normal VANCO, TROUGH 13.0 Result Comment: VANCOMYCIN STANDARED DRUG THERAPY TROUGH LEVEL: 5.0 - 15.0 mg/L VANCOMYCIN HIGH INTENSITY THERAPY TROUGH LEVEL: 15.0 - 20.0 mg/L High Intensity therapy recommended for serious life threatening infections include: - Meningitis -Endocarditis -Pneumonia (Ventilator/Healtcare Associated) -Sepsis PLEASE CONTACT PHARMACY SERVICES (#[id number]) FOR INTERPRETATION OF RESULTS. Performed By: #### L501.8820 #### [facility] [address] [facility] [place], [place], [id number] CBC-COMPLETE BLOOD CNT Collected: 12/21/2017 Status: F Source: [place] NO DIFF 9:40 AM [facility] REPOS[facility]ORY TYPE CODE TESTS RESULT OUT OF RANGE REFERENCE UNITS LAB L100.1000 4.4-11.0 K/mm3 Normal WBC 6.1 LAB L100.1200 4.6-6.2 M/mm3 Low RBC 4.57 LAB L100.1300 13.0-16.5 g/dl Low HGB 12.1 LAB L100.1400 40-54 % Low HCT 38.2 LAB L100.1500 80-94 fL Normal MCV 83.6 LAB L100.1600 27.0-32.0 pg Low MCH 26.5 LAB L100.1700 32-36 g/gl Low MCHC 31.7 LAB L100.1810 11.6-14.6 % Normal RDW CV 13.8 LAB L100.1820 35.1-43.9 fl Normal RDW SD 42.2 LAB L100.1900 150-450 K/mm3 Normal PLT 213 LAB L100.2000 6.2-12.0 fl Normal MPV 9.0 Performed By: #### L100.0500, L101.9900 #### [facility] [address] [place], [place], [id number] ERYTHROCYTE SED RATE Collected: 12/21/2017 Status: F Source: [place] 9:40 AM [facility] REPOS[facility]ORY TYPE CODE TESTS RESULT OUT OF RANGE REFERENCE UNITS LAB L102.0000 0-20 mm/hr High SED RATE 29 Performed By: #### L100.0500, L101.9900 #### [facility] [address] [facility] [place], [place], [id number] COMPREHENSIVE METABOLIC Collected: 12/21/2017 Status: F Source: [facility] 9:40 AM [facility] REPOS[facility]ORY TYPE CODE TESTS RESULT OUT OF RANGE REFERENCE UNITS LAB L501.0100 74-106 mg/dL High GLU 147 Result Comment: Fasting Glucose result greater than or equal to 126 mg/dL suggests DIABETES MELLITUS per A.D.A. criteria. Please note revised GLUCOSE reference range effective 2017. LAB L501.1000 7-18 mg/dL High BUN 28 LAB L501.1100 0.70-1.30 mg/dL Low CREAT,SERUM 0.57 Result Comment: The validity of the calculated GFR AND GFRAA in patients over 70 years has not been determined. Clinical correlation is essential. LAB L501.1110 >60 mL/min Normal EST GFR 159 Result Comment: Non- GFR Calc LAB L501.1115 >60 mL/min Normal EST GFR - AA 193 Result Comment: GFR Calc LAB L501.1300 10-20 RATIO High BUN/CRE 49.0 LAB L501.1500 6.4-8.2 g/dL T Normal PROT 6.8 LAB L501.1800 3.2-5.0 g/dL Normal ALB 3.4 LAB L501.1950 2.2-4.2 g/dL Normal GLOB 3.4 LAB L501.2000 0.9-2.4 RATIO Normal A/G 1.0 LAB L501.2200 8.5-10.1 mg/dL Low CA 8.4 LAB L501.4100 15-37 U/L Low AST 12 LAB L501.4305 45-117 U/L Normal ALK P 90 LAB L501.4405 16-61 U/L Normal ALT 25 LAB L501.4600 0.20-1.00 mg/dL T Normal BILI 0.40 LAB L501.5300 136-145 mmol/L NA Normal 143 LAB L501.5600 3.5-5.1 mmol/L K Normal 3.6 LAB L501.5900 98-107 mmol/L CL Normal 106 LAB L501.6100 21.0-32.0 mmol/L Normal CO2 25.0 LAB L501.6200 5-15 Normal GAP 12 Performed By: #### L500.4050, L501.6710 #### [facility] [address] [place], [address] CRP Collected: 12/21/2017 Status: F Source: BARBI 9:40 AM [facility] REPOSITORY TYPE CODE TESTS RESULT OUT OF RANGE REFERENCE UNITS LAB L501.6710 0.0-3.0 mg/L High 20.70 C-REACTIVE PROT Result Comment: C-Reactive Protein (CRP) provides useful information for the diagnosis, therapy and monitoring of inflammatory processes and associated diseases. For the evaluation of Relative Risk for Cardiovascular Disease, a High Sensitivity CRP (HSCRP) should be ordered. Performed By: #### L500.4050, L501.6710 #### [facility] [address] [facility] [place], [address] VANCOMYCIN, TROUGH Collected: 12/21/2017 Status: F Source: BARBI LEVEL 9:40 AM [facility] REPOSITORY Order Comment: Time Medication is to be Given? 0000 TYPE CODE TESTS RESULT OUT OF RANGE REFERENCE UNITS LAB L501.8820 5.0-15.0 ug/mL Normal VANCO, TROUGH 11.4 Result Comment: VANCOMYCIN STANDARED DRUG THERAPY TROUGH LEVEL: 5.0 - 15.0 mg/L VANCOMYCIN HIGH INTENSITY THERAPY TROUGH LEVEL: 15.0 - 20.0 mg/L High Intensity therapy recommended for serious life threatening infections include: - Meningitis -Endocarditis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 debridement and partial ostectomy. After surgery, will discuss possible HBO treatments at the Wound Center. Patient was informed of the risks and complications of the procedure including alternatives to surgery. These were discussed with the patient personally. Patient voices understanding and wishes to proceed. Size of defect right ischial area - 6 x 2 x 2 cm. stabilizing machine operator: None Type of Anesthesia:: Local MAC - xylocaine with epinephrine. Specimen's removed: 1. Right ischial pressure sore soft tissue to Pathology and Microbiology. 2. Right ischial pressure sore bone to Pathology and Microbiology. Drains: None. Estimated Blood Loss (mL): 25 ml. Description of Procedure: Patient was taken to the OR in supine position and given IV sedation. He was then placed in the prone position and his right ischial area was prepped and draped in usual fashion. SCDs were placed for DVT prophylaxis. Perioperative antibiotics were given intravenously. I infiltrated his right ischial pressure sore with xylocaine and epinephrine. Using a scalpel, I excised the pressure sore through the subcutaneous tissue and muscle down to the ischial bone. Some exudate and abnormal bursal scar tissue was excised over the ischial bone. A partial ostectomy was performed on the right ischial bone using an osteotome and mallet in a tangential fashion. Also a rongeur was used as well. A rasp was used to smooth out the bony edges. Hemostasis was obtained using electrocautery. The wound was then irrigated out with saline. Half the bone and half the soft tissue was sent to pathology for analysis to rule out carcinoma as well as to evaluate for osteomyelitis. Half the bone and half the soft tissue was also sent to microbiology for culture. A positive culture may necessitate antibiotic modification. Based on his preop cultures, a PICC line will be placed. The size of the defect in the right ischial area after the excision of the pressure sore was 6 x 2 x 2 cm. After hemostasis was obtained using electrocautery, I dressed the pressure sore wound with Mepitel nonadherent dressing followed by Kerlix gauze with Betadine and a dry Kerlix gauze with overlying ABD pads. Patient tolerated the procedure well and will be sent to recovery room in satisfactory condition. He will be sent upstairs for surgical observation overnight stay. The wound VAC was offered to be placed tomorrow. The patient stated preoperatively that he may just continue with the Silver dressing changes daily. I anticipate increased metabolic demands from his chronic pressure sore. A prealbumin will be checked. Patient will be encouraged to take nutritional supplementation with protein help with the healing process. After discharge he will follow-up at the wound center. Since the CT scan was suggestive of osteomyelitis, will discuss at the Wound Center about the benefits of HBO treatments. Grafts/Implants Used: None. - Complications None. - Admit VTE Documentation VTE Present on Admission: No VTE Mechan Device Prophylaxis: SCD's VTE Pharm Prophylaxis ordered?: No Code Visit Surgery Charges CPT - 33041 ICD-10 - L89.314, M86.9, G82.20 11/20/17 1236 <Electronically signed by Addison Ken MD> Date Addison Ken MD CC: William Adam MD; Addison Ken MD; Jessica Mendoza DO; [facility] Signed DISCHARGE INSTRUCTION Observed: 11/18/2017 Status: F Source: [place] 12:58 PM [facility] REPOSITORY [facility] Medical Records Department [address] [place] [address] Instructions for Home/Discharge Instructions 11/18/17 1254 MR#: [id number] Acct: [id number] Name: ZORAIDA MOTA Rep #: [id number] : 1965 52 From: Addison Ken MD PCP: Jessica Mendoza DO Status: REG HIC You will use the following diet at home:: No restrictions, Other - encourage nutrtitional supplementation with protein to help the healing process. May shower in (days): 2 Weight Bearing Status: - - may be up in chair as long as he does pressure releases every 10 minutes for 10 seconds. Call your doctor if your incision/area has: Continuous Slow Oozing, Sudden Increased Bleeding, Increased Pain/ Swelling, Increased Redness, Foul Smelling Discharge, Swelling at the incision site Call your doctor if you observe: Fever of 101 or Higher, Coldness, Increased Pain, Shortness of breath, Chest pain, Calf discomfort, Uncontrolled pain Change Dressing in (Days):: 1 - aquacel silver dressing daily. Cleanse incision/area with: Soap AND Water - may cleanse the wound with soap and water at the time of the dressing change. Allergies/Adverse Reactions: Allergies linezolid [From Zyvox] Allergy (Verified 11/11/17 10:00) Hives Penicillins Allergy (Verified 11/11/17 10:00) Hives all tapes Allergy (Uncoded 11/11/17 10:00) blisters Medications to take at Discharge Ascorbic Acid [Vitamin C] 500 mg PO DAILY@0800 12/19/16 Cholecalciferol (Vitamin D3) [Vitamin D3] 1,000 unit PO DAILY 12/19/16 Multivitamin [Daily Multiple Vitamin] 1 each PO DAILY 12/19/16 Oxybutynin Chloride [Ditropan Xl] 15 mg PO DAILY 12/19/16 Methenamine Hippurate 1 gm PO DAILY 11/11/17 Bisacodyl [Dulcolax] 10 mg RECTAL QODAY 11/17/17 Ensure Clear 120 ml PO TIDCM liquid 11/18/17 Fluconazole [Diflucan] 100 mg PO DAILY #30 tab 11/18/17 Gauze Bandage [Bandage Roll] 1 ea TP .QDAILY #30 bandage 11/18/17 Gauze Bandage [Gauze Pads] 1 ea TP .QDAILY #60 bandage 11/18/17 Vancomycin IV 750 mg IV Q8H 40 Days #120 vial 11/18/17 Vancomycin IV [Vancomycin] 1,000 mg IV Q8H 40 Days #120 bag 11/18/17 levoFLOXacin tablet [Levaquin tablet] 500 mg PO DAILY #21 tab 11/18/17 The following prescriptions were given: Fluconazole [Diflucan] 100 mg PO DAILY #30 tab Gauze Bandage [Bandage Roll] 1 ea TP .QDAILY #30 bandage Gauze Bandage [Gauze Pads] 1 ea TP .QDAILY #60 bandage levoFLOXacin tablet [Levaquin tablet] 500 mg PO DAILY #21 tab Vancomycin IV 750 mg IV Q8H 40 Days #120 vial Vancomycin IV [Vancomycin] 1,000 mg IV Q8H 40 Days #120 bag Primary Care Physician: Jessica Mendoza DO [Primary Care Provider] - Test Results: Test results from this visit will be discussed in further detail at your follow-up appointment, if applicable. Please Follow Up With: Addison Ken MD When: wound center in two weeks. Call [phone]. Proposed Discharge Date: 11/18/17 11/18/17 1258 <Electronically signed by Addison Ken MD> Date Addison Ken MD CC: William Adam MD; Jessica eMndoza DO; [facility] 12 LEAD ELECTROCARDIOGRAM Observed: 11/18/2017 Status: F Source: [place] 11:00 AM [facility] REPOSITORY [facility] Cardiovascular Services [address] [place] [address] 12 Lead EKG 11/16/17 1227 MR#: [id number] Acct: [id number] Name: ZORAIDA MOTA Rep #: [id number] : 1965 52 From: Franky Cartwright MD Attending Dr: Addison Ken MD Status: REG SDC Ordering Dr: Addison Ken MD Date: 11/16/17 Location: [facility] Sex: M C Admitted: Test Reason : PRE OP Blood Pressure : / mmHG Vent. Rate : 070 BPM Atrial Rate : 070 BPM P-R Int : 124 ms QRS Dur : 084 ms QT Int : 386 ms P-R-T Axes : 068 070 072 degrees QTc Int : 416 ms Normal sinus rhythm Normal ECG Confirmed by CHAY JACOBSON, FRANKY ([id number]), editorial specialist SHAVON JOHNSON ([id number]) on 11/18/2017 11:00:16 AM Referred By: Addison Ken Confirmed By:FRANKY CARTWRIGHT MD 11/18/17 1100 Date Franky Cartwright MD CC: Addison Ken MD; Jessica Romero ERYTHROCYTE SED RATE Collected: 11/18/2017 Status: F Source: [place] 6:28 AM [facility] REPOSITORY TYPE CODE TESTS RESULT OUT OF RANGE REFERENCE UNITS LAB L102.0000 0-20 mm/hr High SED RATE 29 Performed By: #### L101.9900, L100.0500 #### [facility] [address] [place], [place], [id number] CBC-COMPLETE BLOOD CNT Collected: 11/18/2017 Status: F Source: [place] NO DIFF 6:28 AM [facility] REPOSITORY TYPE CODE TESTS RESULT OUT OF RANGE REFERENCE UNITS LAB L100.1000 4.4-11.0 K/mm3 High WBC 11.8 LAB L100.1200 4.6-6.2 M/mm3 Low RBC 4.46 LAB L100.1300 13.0-16.5 g/dl Low HGB 12.4 LAB L100.1400 40-54 % Low HCT 37.7 LAB L100.1500 80-94 fL Normal MCV 84.5 LAB L100.1600 27.0-32.0 pg Normal MCH 27.8 LAB L100.1700 32-36 g/gl Normal MCHC 32.9 LAB L100.1810 11.6-14.6 % Normal RDW CV 13.9 LAB L100.1820 35.1-43.9 fl Normal RDW SD 42.0 LAB L100.1900 150-450 K/mm3 Normal PLT 252 LAB L100.2000 6.2-12.0 fl Normal MPV 8.6 Performed By: #### L101.9900, L100.0500 #### [facility] [address] [place], [place], [id number] VANCOMYCIN, TROUGH Collected: 11/18/2017 Status: F Source: [place] LEVEL 6:28 AM [facility] REPOSITORY Order Comment: Has pt arrived? Y Time Medication is to be Given? 0630 TYPE CODE TESTS RESULT OUT OF RANGE REFERENCE UNITS LAB L501.8820 5.0-15.0 ug/mL Normal VANCO, TROUGH 11.5 Result Comment: VANCOMYCIN STANDARED DRUG THERAPY TROUGH LEVEL: 5.0 - 15.0 mg/L VANCOMYCIN HIGH INTENSITY THERAPY TROUGH LEVEL: 15.0 - 20.0 mg/L High Intensity therapy recommended for serious life threatening infections include: - Meningitis -Endocarditis -Pneumonia (Ventilator/Healtcare Associated) -Sepsis PLEASE CONTACT PHARMACY SERVICES (#[id number]) FOR INTERPRETATION OF RESULTS. Performed By: #### L501.8820 #### [facility] [address] [place], [place], [address] BASIC METABOLIC Collected: 11/18/2017 Status: F Source: [place] PROFILE (BMP) 6:28 AM [facility] REPOSITORY TYPE CODE TESTS RESULT OUT OF RANGE REFERENCE UNITS LAB L501.0100 74-106 mg/dL Normal GLU 89 Result Comment: Please note revised GLUCOSE reference range effective 2017. LAB L501.1000 7-18 mg/dL Normal BUN 13 LAB L501.1100 0.70-1.30 mg/dL Low CREAT,SERUM 0.42 Result Comment: The validity of the calculated GFR AND GFRAA in patients over 70 years has not been determined. Clinical correlation is essential. LAB L501.1110 >60 mL/min Normal EST GFR 228 Result Comment: Non- GFR Calc LAB L501.1115 >60 mL/min Normal EST GFR - AA 276 Result Comment: GFR Calc LAB L501.1255 ml/min Normal Estimated CRCL 180.22 LAB L501.1300 10-20 RATIO High BUN/CRE 31.0 LAB L501.2200 8.5-10 mg/dL Low .1 CA 8.2 LAB L501.5300 136-14 mmol/L 5 NA Normal 145 LAB L501.5600 3.5-5. mmol/L 1 K Normal 4.5 LAB L501.5900 98-107 mmol/L High CL 115 LAB L501.6100 21.0-3 mmol/L Low 2.0 CO2 20.0 LAB L501.6200 5-15 GAP Normal 10 Performed By: #### L500.2500, L501.6710, L506.0500 #### [facility] [address] [facility] [place], [place], [id number] CRP Collected: 11/18/2017 Status: F Source: [place] 6:28 AM [facility] REPOSITORY TYPE CODE TESTS RESULT OUT OF RANGE REFERENCE UNITS LAB L501.6710 0.0-3.0 mg/L High 14.30 C-REACTIVE PROT Result Comment: C-Reactive Protein (CRP) provides useful information for the diagnosis, therapy and monitoring of inflammatory processes and associated diseases. For the evaluation of Relative Risk for Cardiovascular Disease, a High Sensitivity CRP (HSCRP) should be ordered. Performed By: #### L500.2500, L501.6710, L506.0500 #### [facility] [address] [facility] [place], [place], [id number] PREALBUMIN Collected: 11/18/2017 Status: F Source: [place] 6:28 AM [facility] REPOSITORY TYPE CODE TESTS RESULT OUT OF RANGE REFERENCE UNITS LAB L506.0500 20.0-40.0 mg/dL Normal PREALBUMIN 21.3 Performed By: #### L500.2500, L501.6710, L506.0500 #### [facility] [address] [place], [address] Observed: 11/17/2017 Status: F Source: [place] CULTURE, DEEP WOUND 8:30 AM [facility] REPOSITORY Order Date: 11/12/16 Has pt arrived? Y Comments: RIGHT ISCHIAL PRESSURE SORE TISSUE Gram Stain Gram Stain 2+ Red Blood Cells No organisms seen Wound Culture ORGANISM 1: Enterobacter cloacae complex Amount Growth 1+ Enterobacter cloacae complex: REACTION Amoxacillin/Clavulanic Acid $ >=32 R Cefazolin $ >=64 R Cefepime $ <=1 S Ceftriaxone $ <=1 S Ciprofloxacin $ <=0.25 S Ertapenim $$$ <=0.5 S Gentamicin $ <=1 S Imipenem *NF <=0.25 S Levofloxacin $ 1 S Piperacillin/Tazobactam $$ <=4 S Tobramycin $ <=1 S Trimethoprim/Sulfametho $ <=20 S (NF) indicates non-formulary drug at [facility]. Approval by Infectious Disease Specialist required before non-formulary drugs may be ordered and/or dispensed. Cult, Anaerobic No anaerobic bacteria isolated. Performed By: #### M100.1500 #### [facility] [address] [facility] [place], [address] Observed: 11/17/2017 Status: F Source: [place] CULTURE, DEEP WOUND 8:30 AM [facility] REPOSITORY Order Date: 11/12/16 Has pt arrived? Y Comments: RIGHT ISCHIAL PRESSURE SORE BONE Gram Stain Gram Stain No organisms seen Wound Culture ORGANISM 1: Enterobacter cloacae complex Amount Growth 1+ Enterobacter cloacae complex: REACTION Amoxacillin/Clavulanic Acid $ >=32 R Cefazolin $ >=64 R Cefepime $ <=1 S Ceftriaxone $ <=1 S Ciprofloxacin $ <=0.25 S Ertapenim $$$ <=0.5 S Gentamicin $ <=1 S Imipenem *NF <=0.25 S Levofloxacin $ 1 S Piperacillin/Tazobactam $$ 8 S Tobramycin $ <=1 S Trimethoprim/Sulfametho $ <=20 S (NF) indicates non-formulary drug at [facility]. Approval by Infectious Disease Specialist required before non-formulary drugs may be ordered and/or dispensed. Cult, Anaerobic No anaerobic bacteria isolated. Performed By: #### M100.1500 #### [facility] [address] [place], [address] Observed: 11/17/2017 Status: F Source: [place] KYLE, FUNGUS W/ 8:30 AM [facility] [id number] REPOSITORY Comments: RIGHT ISCHIAL PRESSURE SORE TISSUE Has pt arrived? Y Is this test to exclude patient from TB Isolation? N Cu,[id number] [facility] ORIGINAL REPORT ON FILE IN LAB CONTAINS ADDITIONAL TEST SITE INFORMATION. CUF No yeast or mold isolated after [address] [facility]. ORIGINAL REPORT ON FILE IN LAB CONTAINS ADDITIONAL TEST SITE INFORMATION. Fungus Stain No yeast or mold observed. Performed By: #### M600.1900 #### [facility] [address] [place], [address] Observed: 11/17/2017 Status: F Source: [place] SAROJ, FUNGUS W/ 8:30 AM [facility] [id number] REPOSITORY Comments: RIGHT ISCHIAL PRESSURE SORE BONE Has pt arrived? Y Is this test to exclude patient from TB Isolation? N Cu,Awksol8502 TESTING PERFORMED AT [facility]. ORIGINAL REPORT ON FILE IN LAB CONTAINS ADDITIONAL TEST SITE INFORMATION. CUF No yeast or mold isolated after [address] TESTING PERFORMED AT [facility]. ORIGINAL REPORT ON FILE IN LAB CONTAINS ADDITIONAL TEST SITE INFORMATION. Fungus Stain No yeast or mold observed. Performed By: #### M600.1900 #### [facility] [address] [place], [address] PRESSURE SORE Observed: 11/17/2017 Status: F Source: [place] 8:00 AM [facility] REPOSITORY Patient: ZORAIDA MOTA : 1965 (52/M) Acct Num: [id number] Phys: Addison Ken MD Unit Num: [id number] Loc: [facility] Specimen: [id number] Received: 11/17/17906 Spec Type: PRESS SORE TISSUES TISSUES: A. Ischium, NOS - TISSUE B. Ischium, NOS - BONE GROSS DESCRIPTION A - Received in fixative is one container labeled with the patient's name and designated right soft tissue ischial pressure sore. The specimen consists of an irregular piece of skin with underlying tissue measuring 4 x 1.5 x 1 cm. Also present in the container are detached pieces of camargo soft tissue measuring in aggregate 1 x 1 x 0.3 cm. The larger piece shows an extensive area of ulceration. Manufacturing Engineering Professor sections are submitted in two cassettes. B - Received in fixative is one container labeled with the patient's name and designated right ischial bone pressure sore. The specimen consists of multiple pieces of bone that in aggregate measure 2 x 1.5 x 0.4 cm. The entire specimen is submitted in one cassette after decalcification. / ILDA:lucila 11/17/17 TC:2 CPT: 49465 x2, 70616 HEADER OPERATION: Excision, pressure sore, partial ostectomy PRE-OP DIAGNOSIS: Right ischial pressure sore stage IV, paraplegia, history of osteomyelitis TISSUE SUBMITTED: A Right ischial pressure sore tissue, B - Right ischial pressure sore bone MICROSCOPIC DESCRIPTION Slides are reviewed. MICROSCOPIC DIAGNOSIS A. Right soft tissue ischial pressure sore: Focal ulceration, associated acute and chronic inflammation, granulation tissue reaction and reactive fibrosis. B. Right ischial bone, pressure sore: Pieces of bone with reactive changes, negative for acute osteomyelitis. ILDA:lucila 11/20/17 Signed Dakota Fermin 11/20/17 <signature on file> Performed By: #### PPRES #### [facility] [place], [address] CBC-COMPLETE BLOOD CNT Collected: 11/16/2017 Status: F Source: [place] NO DIFF 12:05 PM [facility] REPOSITORY TYPE CODE TESTS RESULT OUT OF RANGE REFERENCE UNITS LAB L100.1000 4.4-11.0 K/mm3 Normal WBC 9.4 LAB L100.1200 4.6-6.2 M/mm3 Normal RBC 4.88 LAB L100.1300 13.0-16.5 g/dl Normal HGB 13.6 LAB L100.1400 40-54 % Normal HCT 40.6 LAB L100.1500 80-94 fL Normal MCV 83.2 LAB L100.1600 27.0-32.0 pg Normal MCH 27.9 LAB L100.1700 32-36 g/gl Normal MCHC 33.5 LAB L100.1810 11.6-14.6 % Normal RDW CV 13.7 LAB L100.1820 35.1-43.9 fl Normal RDW SD 41.3 LAB L100.1900 150-450 K/mm3 Normal PLT 316 LAB L100.2000 6.2-12.0 fl Normal MPV 8.7 Performed By: #### L100.0500 #### [facility] [address] [facility] [place], [address] BASIC METABOLIC Collected: 11/16/2017 Status: F Source: [place] PROFILE (BMP) 12:05 PM [facility] REPOSITORY TYPE CODE TESTS RESULT OUT OF RANGE REFERENCE UNITS LAB L501.0100 74-106 mg/dL High GLU 107 Result Comment: Fasting Glucose result from 100 to 125 mg/dL suggests IMPAIRED HOMEOSTASIS per A.D.A. criteria. Please note revised GLUCOSE reference range effective 2017. LAB L501.1000 7-18 mg/dL High BUN 23 LAB L501.1100 0.70-1.30 mg/dL Low CREAT,SERUM 0.41 Result Comment: The validity of the calculated GFR AND GFRAA in patients over 70 years has not been determined. Clinical correlation is essential. LAB L501.1110 >60 mL/min Normal EST GFR 236 Result Comment: Non- GFR Calc LAB L501.1115 >60 mL/min Normal EST GFR - AA 286 Result Comment: GFR Calc LAB L501.1300 10-20 RATIO High BUN/CRE 56.5 LAB L501.2200 8.5-10.1 mg/dL CA Normal 8.9 LAB L501.5300 136-145 mmol/L NA Normal 144 LAB L501.5600 3.5-5.1 mmol/L K Normal 3.9 LAB L501.5900 98-107 mmol/L High CL 109 LAB L501.6100 21.0-32.0 mmol/L Normal CO2 23.0 LAB L501.6200 5-15 Normal GAP 12 Performed By: #### L500.2500 #### [facility] [address] [place], [address] PELVIS WITHOUT IV Observed: 11/07/2017 Status: F Source: [place] CONTRAST 10:43 AM [facility] REPOSITORY [facility] Imaging Services [address] [place] [address] Pelvis without IV Contrast MR#: [id number] Acct: [id number] Name: ZORAIDA MOTA Rep #: [id number] : 1965 M 52 From: Fouzia Brenner MD PCP: Jessica Mendoza DO Status: REG CLI Study: Pelvis without IV Contrast Date of Exam: 11/07/17 Exam# [id number] Ordering Dr: Addison Ken MD STUDY: CT PELVIS WITHOUT CONTRAST REASON FOR EXAM: Male, 52 years old. PRESSURE SORE RIGHT ISCHIUM STAGE IV RADIATION DOSAGE (If Supplied By Facility): CTDIvol = ( 25.83 ) mGy, DLP = ( 828.91 ) mGycm TECHNIQUE: Transaxial imaging of the pelvis was performed with oral contrast, and without intravenous administration of contrast material. Individualized dose optimization techniques were used for this CT. COMPARISON: 01/16/2017 FINDINGS: Normal urinary bladder. Normal visualized small intestine. Normal visualized colon. There is no pelvic fluid. There is no pelvic mass lesion or lymphadenopathy. Normal visualized pelvic arteries. Right buttocks and upper posterior thigh decubitus ulcer with granulation tissue and air pocket extending to the ischial tuberosity appear larger when compared to the previous study. There is osteosclerosis in the ischial tuberosity with irregular periosteal bone formation suggesting chronic osteomyelitis. CT/Pelvis without IV Contrast IMPRESSION: Right buttocks and upper posterior thigh decubitus ulcer with granulation tissue and air pocket extending to the ischial tuberosity appear larger when compared to the previous study. There is osteosclerosis in the ischial tuberosity with irregular periosteal bone formation suggesting chronic osteomyelitis. Electronically Signed: Fouzia Brenner MD at 10:50 EDT Tel , Service support , CC: Addison Ken MD; Jessica Mendoza DO [employer] Equipment Mechanic: Signed Observed: 10/12/2017 Status: F Source: BARBI CULTURE, DEEP WOUND 1:00 PM [facility] REPOSITORY Comments: RIGHT ISCHIAL ULCER Gram Stain Gram Stain No White Blood Cells Rare Gram negative rods Wound Culture #3 Gram positive etelvina suggestive of a diptheroid. There are no CLSI standards for interpretation of this Drug/Organism combination. ORGANISM 1: Staphylococcus haemolyticus Amount Growth 2+ ORGANISM 2: Aerococcus viridans. Amount Growth 1+ ORGANISM 3: Gram positive etelvina Amount Growth 2+ Staphylococcus haemolyticus: REACTION Benzylpenicillin NF >=0.5 R Cefoxitin *NF + Clindamycin $$ >=8 R Inducable Clindamycin Resistan - Erythromycin $ >=8 R Gentamicin $ <=0.5 S Levofloxacin $ >=8 R Linezolid $$$$ 2 S Oxacillin NF 0.5 R Tigecycline $$$$ 0.25 S Rifampin $$ <=0.5 S Tetracycline NF <=1 S Vancomycin $ <=0.5 S (NF) indicates non-formulary drug at [facility]. Approval by Infectious Disease Specialist required before non-formulary drugs may be ordered and/or dispensed. * CLSI guidelines does not recommend testing of cephalosporins. This interpretation is deduced from Beta-lactam/penicillin results. Cult, Anaerobic No anaerobic bacteria isolated. Performed By: #### M100.1500 #### [facility] [place], [address] Observed: 10/09/2017 Status: F Source: BARBI CULTURE, URINE 4:07 PM [facility] REPOSITORY Urine Culture ORGANISM 1: Enterococcus faecalis [place] Count 25,000-50,000 Enterococcus faecalis: REACTION Ampicillin $ <=2 S Benzylpenicillin NF 2 S Ciprofloxacin $ 2 I Gentamicin SYN-S S Levofloxacin $ 2 S Linezolid $$$$ 2 S Nitrofurantoin $ <=16 S Streptomycin $ SYN-S S Tetracycline NF >=16 R Vancomycin $ 1 S (NF) indicates non-formulary drug at [facility]. Approval by Infectious Disease Specialist required before non-formulary drugs may be ordered and/or dispensed. * CLSI guidelines does not recommend testing of cephalosporins. This interpretation is deduced from Beta-lactam/penicillin results. Performed By: #### M100.0650 #### [facility] [address] [place], [address] Observed: 06/15/2017 Status: F Source: BARBI CULTURE, URINE 4:32 PM [facility] REPOSITORY Urine Culture ORGANISM 1: GPC Poss Enterococcus sp [place] Count >100,000 ORGANISM 2: Mixed Gram Positive Organisms [place] Count 11,000-25,000 MIX CULTURE Mixed contaminants. Submit a new specimen if indicated. Performed By: #### M100.0650 #### [facility] [address] [place], [address] ALLERGIES ALLERGIES DATE TYPE / CODE NAME / CODE REACTION SEVERITY SOURCE 11/11/2017 Drug Penicillins Hives Unknown [facility] Allergy/[id number](S /[id number] [facility]) (RXNORM) Hospital Repository 11/11/2017 Drug linezolid/F Hives Unknown [facility] Allergy/[id number](S [id number](R [facility] NOMED [facility]) XNORM) Hospital Repository 11/11/2017 Miscellaneous all tapes blisters Unknown Josephine Allergy/[id number](S [facility] NOMED [facility]) Hospital Repository ENCOUNTERS ENCOUNTERS ADMIT/DISCHARGE ACCOUNT NUMBER ADMITTING ENCOUNTER LOCATION SOURCE CLASS 04/19/2018 [id number] Ambulatory BMSBuilding: [facility] Repository 04/19/2018 [id number] Ambulatory [facility] ding: Repository 03/29/2018 [id number] Ambulatory BMSBuilding: [facility] BMS.CF[facility] Repository 03/29/2018/04/12/20 [id number] Ambulatory [address] ding: Repository 03/26/2018 [id number] Ambulatory [facility] ding[facility] Repository 03/08/2018 [id number] Ambulatory BMSBuilding: [facility]bi BMS.CF[facility] Repository 03/08/2018/03/12/20 [id number] Ambulatory Josephine Barbi [facility] Hospital ding: Repository 02/22/2018 [id number] Ambulatory BMSBuilding: [facility] BMS.CF[facility] Repository 02/08/2018 [id number] Ambulatory BMSBuilding: Josephine BMS.CF[facility] Repository 02/08/2018/02/11/20 [id number] Ambulatory Barbi Barbi [facility] Hospital ding:WC Repository 02/02/2018 [id number] Ambulatory BMSBuilding: [facility] BMS.CF[facility] Repository 01/21/2018 [id number] [facility] ding:LAB Repository 01/18/2018 [id number] Ambulatory BMSBuilding: [facility] BMS.CF[facility] Repository 12/28/2017 [id number] Ambulatory BMSBuilding: Josephine BMS.CF[facility] Repository 12/28/2017/01/11/20 [id number] Ambulatory Josephine [address]bi[address] Hospital ding:HHLAB Repository 12/28/2017/01/11/20 [id number] Ambulatory Barbi Josephine[address] Hospital ding: Repository 12/11/2017/01/27/20 [id number] Ambulatory BBuilding:PH [place] [address] [place] [address] Repository 12/07/2017/12/12/19 [id number] Ambulatory Josephine Barbi [address] [place] [address] Hospital ding:LAB Repository 11/30/2017/12/12/19 [id number] Ambulatory Josephine Barbi [address] [place] [address] Hospital ding: Repository 11/30/2017 [id number] Ambulatory BMSBuilding: Josephine BMS.CF[facility] Repository 11/29/2017 [id number] [facility] Repository 11/17/2017/11/19/19 [id number] Ambulatory Josephine Barbi [address] [place] [address] Hospital ding:SDCRoo Repository : MS325 11/17/2017 [id number] Ambulatory BMSBuilding: Josephine BMS.CF.[facility] Repository 11/16/2017 [id number] Ambulatory BMSBuilding: [facility]bi BMS.CF.[facility] Repository 11/16/2017 [id number] Ambulatory BMSBuilding: Barbi [facility] Hospital Repository 11/10/2017 [id number] [facility] ding[facility]WC Repository 11/07/2017 [id number] [facility] ding[facility]CT Repository 10/26/2017/11/11/19 [id number] Ambulatory Josephine Barbi[address] ding:WC Repository 10/26/2017 [id number] Ambulatory BMSBuilding: Barbi BMS.CF[facility] Repository 10/12/2017 [id number] Ambulatory BMSBuilding: [facility]bi BMS.CF[facility] Repository 10/09/2017 [id number] [facility] ding:LABSPEC Repository 09/14/2017/10/11/19 [id number] Ambulatory Josephine Josephine[address] ding:WC Repository 08/17/2017/09/11/19 [id number] Ambulatory Barbi Barbi[address] ding:WC Repository 08/17/2017 [id number] Ambulatory BMSBuilding: [facility]bi BMS.CF[facility] Repository 07/27/2017/08/11/19 [id number] Ambulatory Josephine[address] ding:WC Repository 07/27/2017 [id number] Ambulatory BMSBuilding: [facility]bi BMS.CF[facility] Repository 07/06/2017/07/12/19 [id number] Ambulatory Barbi [address]bi[address] Hospital ding:WC Repository 07/06/2017 [id number] Ambulatory BMSBuilding: Josephine BMS.CF.[facility] Repository 06/15/2017 [id number] Ambulatory [facility] ding:MTLAB Repository 06/08/2017/06/10/19 [id number] Ambulatory Josephine Barbi [address] [place] [address] Hospital ding:WC Repository 06/08/2017 [id number] Ambulatory BMSBuilding: [facility]bi BMS.CF[facility] Repository 05/25/2017 [id number] Ambulatory BMSBuilding: Josephine BMS.CF.[facility] Repository PAYERS PAYERS ENCOUNTER GUARANTOR PAYER SUBSCRIBER SOURCE 04/19/2018 ZORAIDA Carney Primary TOVA D Barbi [id number] Insurance:ANTHEMPolic TRAPPDOB: Community CHRISTOPHER y Number: [id number] [id number] Repository 34573Kkl: (330) Date:5252-47-49SC [phone] () [address] [place] [address] 82840KN: 04/19/2018 Secondary ZORAIDA E Josephine Insurance:MEDICARE TRAPPDOB: Community PART A [facility] [id number] Hospital Number: Repository [id number] Date:2017-10-12 04/19/2018 Tertiary NOT GIVENUNK Josephine Insurance:SELF PAY [facility] Number: Effective Repository Date:2018-04-19 04/19/2018 ZORAIDA E Primary TOVA D Josephine [id number] Insurance:ANTHEMPolic TRAPPDOB: Community CHRISTOPHER y Number: [id number], [place] [id number] Repository 55977Lao: (330) Date:3210-99-67PE [phone] () [address] [place] [address] 17648BQ: 04/19/2018 Secondary ZORAIDA E Barbi Insurance:MEDICARE TRAPPDOB: Community PART A olic [id number] Hospital Number: Repository [id number] Date:2017-10-12 04/19/2018 Tertiary NOT GIVENUNK Josephine Insurance:SELF PAY [facility] Number: Effective Repository Date:2018-04-13 03/29/2018 ZORAIDA E Primary TOVA D Barbi [id number] Insurance:ANTHEMPolic TRAPPDOB: Community CHRISTOPHER y Number: [id number], [place] [id number] Repository 43038Wft: (330) Date:8572-20-91LR [phone] () [address] [place] [address] [place] 11112QF: 03/29/2018 Secondary ZORAIDA E Barbi Insurance:MEDICARE TRAPPDOB: Community PART A BPolicy [id number] Hospital Number: Repository [id number] Date:2017-10-12 03/29/2018 Tertiary NOT GIVENUNK Barbi Insurance:SELF PAY [facility] Number: Effective Repository Date:2018-03-29 03/29/2018 ZORAIDA E Primary TOVA D Josephine [id number] Insurance:ANTHEMPolic TRAPPDOB: Community CHRISTOPHER y Number: [id number], [place] [id number] Repository 33861Wyg: (330) Date:1238-68-29WI [phone] () [address] [place] [address] 11646JS: 03/29/2018 Secondary ZORAIDA E Josephine Insurance:MEDICARE TRAPPDOB: Community PART A BPolicy [id number] Hospital Number: Repository [id number] Date:2017-10-12 03/29/2018 Tertiary NOT GIVENUNK Barbi Insurance:SELF PAY [facility] Number: Effective Repository Date:2018-03-13 03/26/2018 ZORAIDA E Primary TOVA D Barbi [id number] Insurance:ANTHEMPolic TRAPPDOB: Community CHRISTOPHER y Number: [id number], [place] [id number] Repository 59969Zdt: (330) Date:1885-04-57YH [phone] () [address] [place] [address] 05394QW: 03/26/2018 Secondary ZORAIDA E Josephine Insurance:MEDICARE TRAPPDOB: Community PART A olicy [id number] Hospital Number: Repository [id number] Date:2018-03-26 03/26/2018 Tertiary NOT GIVENUNK Barbi Insurance:SELF PAY [facility] Number: Effective Repository Date:2018-03-26 03/08/2018 ZORAIDA E Primary TOVA D Barbi [id number] Insurance:ANTHEMPolic TRAPPDOB: Community CHRISTOPHER y Number: [id number], [place] [id number] Repository 19687Ajz: (330) Date:7143-52-86SP [phone] () 788680DVNQYEA, [place] [address]PK: 03/08/2018 Secondary ZORAIDA E Barbi Insurance:MEDICARE TRAPPDOB: Community PART A BPolicy [id number] Hospital Number: Repository [id number] Date:2017-10-12 03/08/2018 Tertiary NOT GIVENUNK Josephine Insurance:SELF PAY [facility] Number: Effective Repository Date:2018-03-08 03/08/2018 ZORAIDA E Primary TOVA D Josephine [id number] Insurance:ANTHEMPolic TRAPPDOB: Community CHRISTOPHER y Number: [id number], [place] [id number] Repository 38740Ifs: (330) Date:7770-07-54LD [phone] () 212600OUUYDIK, [place] [address]AQ: 03/08/2018 Secondary ZORAIDA E Josephine Insurance:MEDICARE TRAPPDOB: Community PART A olicy [id number] Hospital Number: Repository [id number] Date:2017-10-12 03/08/2018 Tertiary NOT GIVENUNK Barbi Insurance:SELF PAY [facility] Number: Effective Repository Date:2018-02-11 02/22/2018 ZORAIDA E Primary TOVA D Josephine [id number] Insurance:ANTHEMPolic TRAPPDOB: Community CHRISTOPHER y Number: [id number], [place] [id number] Repository 39412Knk: (330) Date:5208-07-47XI [phone] () 680057VAFLXQQ, [place] [address]KC: 02/22/2018 Secondary ZORAIDA E Barbi Insurance:MEDICARE TRAPPDOB: Community PART A olicy [id number] Hospital Number: Repository [id number] Date:2017-10-12 02/22/2018 Tertiary NOT GIVENUNK Josephine Insurance:SELF PAY [facility] Number: Effective Repository Date:2018-02-22 02/08/2018 ZORAIDA E Primary TOVA D Barbi [id number] Insurance:ANTHEMPolic TRAPPDOB: Community CHRISTOPHER y Number: [id number], [place] [id number] Repository 27006Qpc: (330) Date:6243-78-67AP [phone] () 649046TBOY[place], [place] [address]RE: 02/08/2018 Secondary ZORAIDA E Barbi Insurance:MEDICARE TRAPPDOB: Community PART A BPolicy [id number] Hospital Number: Repository [id number] Date:2017-10-12 02/08/2018 Tertiary NOT GIVENUNK Barbi Insurance:SELF PAY [facility] Number: Effective Repository Date:2018-02-08 02/08/2018 ZORAIDA E Primary TOVA D Barbi [id number] Insurance:ANTHEMPolic TRAPPDOB: Community CHRISTOPHER y Number: [id number], [place] [id number] Repository 47000Dmg: (330) Date:3479-18-44NP [phone] () 037731HRPJKLW, [place] [address]WM: 02/08/2018 Secondary ZORAIDA E Barbi Insurance:MEDICARE TRAPPDOB: Community PART A olicy [id number] Hospital Number: Repository [id number] Date:2017-10-12 02/08/2018 Tertiary NOT GIVENUNK Josephine Insurance:SELF PAY [facility] Number: Effective Repository Date:2018-01-11 02/02/2018 ZORAIDA E Primary TOVA D Josephine [id number] Insurance:ANTHEMPolic TRAPPDOB: Community CHRISTOPHER y Number: [id number], [place] [id number] Repository 42085Jqm: (330) Date:1296-11-72IP [phone] () [place]50[address], [place] [address]JT: 02/02/2018 Secondary ZORAIDA E Barbi Insurance:MEDICARE TRAPPDOB: Community PART A olicy [id number] Hospital Number: Repository [id number] Date:2017-10-12 02/02/2018 Tertiary NOT GIVENUNK Barbi Insurance:SELF PAY [facility] Number: Effective Repository Date:2018-02-02 01/21/2018 ZORAIDA E Primary TOVA D Josephine [id number] Insurance:ANTHEMPolic TRAPPDOB: Community CHRISTOPHER y Number: [id number], [place] [id number] Repository 62935Wxb: (330) Date:1405-26-82GP [phone] () 644240IKJXWRM, [place] [address]VD: 01/21/2018 Secondary ZORAIDA E Barbi Insurance:MEDICARE TRAPPDOB: Community PART A BPolicy [id number] Hospital Number: Repository [id number] Date:2017-11-23 01/21/2018 Tertiary NOT GIVENUNK Josephine Insurance:SELF PAY [facility] Number: Effective Repository Date:2018-01-11 01/18/2018 ZORAIDA E Primary TOVA D Barbi [id number] Insurance:ANTHEMPolic TRAPPDOB: Community CHRISTOPHER y Number: [id number], [place] [id number] Repository 83760Pds: (330) Date:0588-80-90CQ [phone] () 587059QKRWOOE, [place] [address]XC: 01/18/2018 Secondary ZORAIDA E Barbi Insurance:MEDICARE TRAPPDOB: Community PART A BPolicy [id number] Hospital Number: Repository [id number] Date:2017-10-12 01/18/2018 Tertiary NOT GIVENUNK Josephine Insurance:SELF PAY [facility] Number: Effective Repository Date:2018-01-18 12/28/2017 ZORAIDA E Primary TOVA D Josephine [id number] Insurance:ANTHEMPolic TRAPPDOB: Community CHRISTOPHER y Number: [id number], [place] [id number] Repository 45084Wlq: (330) Date:8309-13-59SQ [phone] () 132300NSWZHNY, [place] [address]MW: 12/28/2017 Secondary ZORAIDA E Josephine Insurance:MEDICARE TRAPPDOB: Community PART A BPolicy [id number] Hospital Number: Repository [id number] Date:2017-10-12 12/28/2017 Tertiary NOT GIVENUNK Josephine Insurance:SELF PAY [facility] Number: Effective Repository Date:2017-12-28 12/28/2017 ZORAIDA E Primary TOVA D Josephine [id number] Insurance:ANTHEMPolic TRAPPDOB: General acute hospital y Number: [id number], [place] [id number] Repository 35787Ppj: (330) Date:3780-00-76PX [phone] () [id number] [place] [address] 22513CT: 12/28/2017 Secondary ZORAIDA E Josephine Insurance:MEDICARE TRAPPDOB: Community PART A olic [id number] Hospital Number: Repository [id number] Date:2017-11-23 12/28/2017 Tertiary NOT GIVENUNK Josephine Insurance:SELF PAY [facility] Number: Effective Repository Date:2017-12-12 12/28/2017 ZORAIDA E Primary TOVA D Barbi [id number] Insurance:ANTHEMPolic TRAPPDOB: General acute hospital y Number: [id number], [place] [id number] Repository 56208Lws: (330) Date:6993-17-59VK [phone] () [id number] [place] [address]1100AT: 12/28/2017 Secondary ZORAIDA E Barbi Insurance:MEDICARE TRAPPDOB: Community PART A olic [id number] Hospital Number: Repository [id number] Date:2017-10-12 12/28/2017 Tertiary NOT GIVENUNK Barbi Insurance:SELF PAY [facility] Number: Effective Repository Date:2017-12-12 12/11/2017 ZORAIDA E Primary [facility] TRAPPDOB: Insurance:ANTHEM TRAPPDOB: [facility] [id number] [facility] [id number] Repository [address] Number: [place] [address]~TETRAPP@ [id number] 91793Vwb: (330) Latoya: Date:2017-12-03 [id number] 6183-71-57Wxjc (HP)Tel: (000) (HP)Tel: (999) Name:[phone] (WP) [phone] (WP) 039344Crvsqet, [place] [address]AB: 12/11/2017 Secondary ZORAIDA E [facility] Insurance:MEDICARE TRAPPDOB: Foundation PART BPolicy Number: [id number] Repository [id number] [address] [place] [address] Date:2017-12-03 - [place], [place] 2318-77-83Knyk 18075Nuh: (330) Name:[facility] [phone] Administrators LLCPO (HP)Tel: (000) [address]Htfrdojid, 000-0000 (WP) [place] [address]EO: 12/07/2017 ZORAIDA E Primary TOVA D Josephine [id number] Insurance:ANTHEMPolic TRAPPDOB: General acute hospital y Number: [id number], [place] [id number] Repository 67755Bja: (330) Date:8471-25-25HV [phone] () 856553YPWYLYR, [place] [address]PC: 12/07/2017 Secondary ZORAIDA E Barbi Insurance:MEDICARE TRAPPDOB: Community PART A olicy [id number] Hospital Number: Repository [id number] Date:2017-11-23 12/07/2017 Tertiary NOT GIVENUNK Josephine Insurance:SELF PAY [facility] Number: Effective Repository Date:2017-11-23 11/30/2017 ZORAIDA E Primary TOVA D Barbi [id number] Insurance:ANTHEMPolic TRAPPDOB: General acute hospital y Number: [id number], [place] [id number] Repository 95718Ovp: (330) Date:3145-10-15EE [phone] () 767746TJRHSHV, [place] [address]ZC: 11/30/2017 Secondary ZORAIDA E Josephine Insurance:MEDICARE TRAPPDOB: Community PART A BPolicy [id number] Hospital Number: Repository [id number] Date:2017-10-12 11/30/2017 Tertiary NOT GIVENUNK Barbi Insurance:SELF PAY [facility] Number: Effective Repository Date:2017-11-11 11/30/2017 ZORAIDA E Primary TOVA D Josephine [id number] Insurance:ANTHEMPolic TRAPPDOB: Community CHRISTOPHER y Number: [id number], [place] [id number] Repository 69450Txt: (330) Date:0786-51-01SM [phone] () 277379FOIVOSD [place] [address]XM: 11/30/2017 Secondary ZORAIDA E Josephine Insurance:MEDICARE TRAPPDOB: Community PART A olicy [id number] Hospital Number: Repository [id number] Date:2017-10-12 11/30/2017 Tertiary NOT GIVENUNK Josephine Insurance:SELF PAY [facility] Number: Effective Repository Date:2017-11-30 11/29/2017 ZORAIDA E Primary TOVA D Josephine [id number] Insurance:ANTHEMPolic TRAPPDOB: Community CHRISTOPHER y Number: [id number], [place] [id number] Repository 26886Dwi: (330) Date:5450-12-12DW [phone] () 898048SRLDTCN, [place] [address]FB: 11/29/2017 Secondary ZORAIDA E Josephine Insurance:MEDICARE TRAPPDOB: Community PART A olicy [id number] Hospital Number: Repository [id number] Date:2017-11-29 11/29/2017 Tertiary NOT GIVENUNK Josephine Insurance:SELF PAY [facility] Number: Effective Repository Date:2017-11-29 11/17/2017 ZORAIDA E Primary TOVA D Barbi [id number] Insurance:ANTHEMPolic TRAPPDOB: Community CHRISTOPHER y Number: [id number], [place] [id number] Repository 28259Pfk: (330) Date:0131-37-72CE [phone] () [address] [place] [address] [place] [address]XF: 11/17/2017 Secondary ZORAIDA E Barbi Insurance:MEDICARE TRAPPDOB: Community PART A BPolicy [id number] Hospital Number: Repository [id number] Date:2017-11-04 11/17/2017 Tertiary NOT GIVENUNK Josephine Insurance:SELF PAY [facility] Number: Effective Repository Date:2017-11-04 11/17/2017 ZORAIDA E Primary TOVA D Josephine [id number] Insurance:ANTHEMPolic TRAPPDOB: Community CHRISTOPHER y Number: [id number], [place] [id number] Repository 25395Xaw: (330) Date:6432-07-23IQ [phone] () [address] [place] [address] [place] 12944AK: 11/17/2017 Secondary ZORAIDA E Barbi Insurance:MEDICARE TRAPPDOB: Community PART A BPolicy [id number] Hospital Number: Repository [id number] Date:2017-11-04 11/17/2017 Tertiary NOT GIVENUNK Barbi Insurance:SELF PAY [facility] Number: Effective Repository Date:2017-11-17 11/16/2017 ZORAIDA E Primary TOVA D Barbi [id number] Insurance:ANTHEMPolic TRAPPDOB: Community CHRISTOPHER y Number: [id number], [place] [id number] Repository 88540Fqt: (330) Date:4674-40-85KR [phone] () [address] [place] [address] [place] 13[address]BC: 11/16/2017 Secondary ZORAIDA E Barbi Insurance:MEDICARE TRAPPDOB: Community PART A BPolicy [id number] Hospital Number: Repository [id number] Date:2017-10-12 11/16/2017 Tertiary NOT GIVENUNK Josephine Insurance:SELF PAY [facility] Number: Effective Repository Date:2017-11-16 11/16/2017 ZORAIDA E Primary TOVA D Barbi [id number] Insurance:ANTHEMPolic TRAPPDOB: Community CHRISTOPHER y Number: [id number], [place] [id number] Repository 97424Lad: (330) Date:7461-05-05RS [phone] () ROHITH HORN [address]VR: 11/16/2017 Secondary ZORAIDA E Josephine Insurance:MEDICARE TRAPPDOB: Community PART A BPolicy [id number] Hospital Number: Repository [id number] Date:2017-10-12 11/16/2017 Tertiary NOT GIVENUNK Josephine Insurance:SELF PAY [facility] Number: Effective Repository Date:2017-11-16 11/10/2017 ZORAIDA E Primary TOVA D Josephine [id number] Insurance:ANTHEMPolic TRAPPDOB: Community CHRISTOPHER y Number: [id number], [place] [id number] Repository 56233Dxq: (330) Date:9530-08-20GL [phone] () 027829IQSPUWL, [place] [address]RT: 11/10/2017 Secondary ZORAIDA E Barbi Insurance:MEDICARE TRAPPDOB: Community PART A BPolicy [id number] Hospital Number: Repository [id number] Date:2007-01-11 11/10/2017 Tertiary NOT GIVENUNK Josephine Insurance:SELF PAY [facility] Number: Effective Repository Date:2017-10-31 11/07/2017 ZORAIDA E Primary TOVA D Barbi [id number] Insurance:ANTHEMPolic TRAPPDOB: Community CHRISTOPHER y Number: [id number], [place] [id number] Repository 21188Tks: (330) Date:0877-98-41HR [phone] () 746338QXMBRRM, [place] [address]HN: 11/07/2017 Secondary ZORAIDA E Barbi Insurance:MEDICARE TRAPPDOB: Community PART A olicy [id number] Hospital Number: Repository [id number] Date:2017-11-04 11/07/2017 Tertiary NOT GIVENUNK Barbi Insurance:SELF PAY [facility] Number: Effective Repository Date:2017-11-04 10/26/2017 ZORAIDA E Primary TOVA D Barbi [id number] Insurance:ANTHEMPolic TRAPPDOB: Community CHRISTOPHER y [place]: [id number] [id number] Repository [address]27[address]Daq: (330) Date:9411-95-97KP [phone] () 623173DAVPRJR, [place] [address]VE: 10/26/2017 Secondary ZORAIDA E Barbi Insurance:MEDICARE TRAPPDOB: Community PART A [facility] [id number] Hospital Number: Repository [id number] Date:2017-10-12 10/26/2017 Tertiary NOT GIVENUNK Barbi Insurance:SELF PAY [facility] Number: Effective Repository Date:2017-10-12 10/26/2017 ZORAIDA E Primary TOVA D Josephine [id number] Insurance:ANTHEMPolic TRAPPDOB: Community CHRISTOPHER y Number: [id number], [place] [id number] Repository [address]Kcc: (330) Date:2272-12-13FT [phone] () 686543HVLAZRK, [place] [address]MZ: 10/26/2017 Secondary ZORAIDA E Barbi Insurance:MEDICARE TRAPPDOB: Community PART A [facility] [id number] Hospital Number: Repository [id number] Date:2017-10-12 10/26/2017 Tertiary NOT GIVENUNK Josephine Insurance:SELF PAY [facility] Number: Effective Repository Date:2017-10-26 10/12/2017 ZORAIDA E Primary TOVA D Josephine [id number] Insurance:ANTHEMPolic TRAPPDOB: Community CHRISTOPHER y Number: [id number], [place] [id number] Repository [address]Arl: (330) Date:0829-01-58EA [phone] () 193083GANKWJQ, [place] [address]JF: 10/12/2017 Secondary ZORAIDA E Josephine Insurance:MEDICARE TRAPPDOB: Community PART A [facility] [id number] Hospital Number: Repository [id number] Date:2017-10-12 10/12/2017 Tertiary NOT GIVENUNK Barbi Insurance:SELF PAY [facility] Number: Effective Repository Date:2017-10-12 10/09/2017 ZORAIDA E Primary TOVA D Barbi [id number] Insurance:ANTHEMPolic TRAPPDOB: Community CHRISTOPHER y Number: [id number], [place] [id number] Repository [address]Ajw: (330) Date:9338-03-41YR [phone] () [address] [place] [address] 780[address]FD: 10/09/2017 Secondary ZORAIDA E Josephine Insurance:MEDICARE TRAPPDOB: Community PART A olicy [id number] Hospital Number: Repository [id number] Date:2017-10-09 10/09/2017 Tertiary NOT GIVENUNK Barbi Insurance:SELF PAY [facility] Number: Effective Repository Date:2017-10-09 09/14/2017 ZORAIDA E Primary TOVA D Barbi [id number] Insurance:ANTHEMPolic TRAPPDOB: Community [place]RISTOPHER y Number: [id number], [place] [id number] Repository [address]64[address]Lnj: (330) Date:5558-96-43CF [phone] () [address] [place] [address] 221[address]DM: 09/14/2017 Secondary ZORAIDA E Barbi Insurance:MEDICARE TRAPPDOB: Community PART A [facility] [id number] Hospital Number: Repository [id number] Date:2007-01-11 09/14/2017 Tertiary NOT GIVENUNK Josephine Insurance:SELF PAY [facility] Number: Effective Repository Date:2017-09-11 08/17/2017 MAAME E [id number] Primary TOVA D Barbi CHRISTOPHER Insurance:ANTHEMPolic TRAPPDOB: [place] y Number: [id number] Hospital 13080Bzg: (330) [id number] Repository [phone] (HP) Date:0321-64-64PW [address] [place] [address]NE: 08/17/2017 Secondary MAAME E TRAPPDOB: Barbi Insurance:MEDICARE [id number] Community PART A [facility] Hospital Number: Repository [id number] Date:2007-01-11 08/17/2017 Tertiary NOT GIVENUNK Josephine Insurance:SELF PAY [facility] Number: Effective Repository Date:2017-08-11 08/17/2017 ZORAIDA E Primary TOVA D Josephine [id number] Insurance:ANTHEMPolic TRAPPDOB: Community CHRISTOPHER y Number: [id number], [place] [id number] Repository 518[address]Uyg: (330) Date:4727-81-85SN [phone] () [address] [place] [address] [place] [address]FL: 08/17/2017 Secondary ZORAIDA E Barbi Insurance:MEDICARE TRAPPDOB: Community PART A [facility] [id number] Hospital Number: Repository [id number] Date:2007-01-11 08/17/2017 Tertiary NOT GIVENUNK Barbi Insurance:SELF PAY [facility] Number: Effective Repository Date:2017-08-17 07/27/2017 MAAME E [id number] Primary TOVA D Barbi CHRISTOPHER Insurance:ANTHEMPolic TRAPPDOB: [place] y Number: [id number] Hospital 17490Nyy: 330) [id number] Repository [phone] () Date:5832-94-79RA [address]JAFGIXD, [place] [address]TX: 07/27/2017 Secondary MAAME E TRAPPDOB: Josephine Insurance:MEDICARE [id number] Community PART A [facility] Hospital Number: Repository [id number] Date:2007-01-11 07/27/2017 Tertiary NOT GIVENUNK Josephine Insurance:SELF PAY [facility] Number: Effective Repository Date:2017-07-12 07/27/2017 ZORAIDA E Primary TOVA D Josephine [id number] Insurance:ANTHEMPolic TRAPPDOB: Community [place]HER y [place]: [id number] [id number] Repository 90[address]Jwq: (330) Date:2015-07-77EY [phone] () [address] [place] [address] 499[address]QG: 07/27/2017 Secondary ZORAIDA E Barbi Insurance:MEDICARE TRAPPDOB: Community PART A olic [id number] Hospital Number: Repository [id number] Date:2007-01-11 07/27/2017 Tertiary NOT GIVENUNK Josephine Insurance:SELF PAY [facility] Number: Effective Repository Date:2017-07-27 07/06/2017 MAAME E [id number] Primary TOVA D Josephine CHRISTOPHER Insurance:ANTHEMPolic TRAPPDOB: [place] y Number: [id number] Hospital 69[address]Piv: (330) [id number] Repository [phone] () Date:3449-33-30RP [address] [place] [address]ZQ: 07/06/2017 Secondary MAAME E TRAPPDOB: [place] Insurance:MEDICARE [id number] Community PART A [facility] Hospital Number: Repository [id number] Date:2007-01-11 07/06/2017 Tertiary NOT GIVENUNK Barbi Insurance:SELF PAY [facility] Number: Effective Repository Date:2017-06-11 07/06/2017 MAAME E [id number] Primary TOVA D Barbi CHRISTOPHER Insurance:ANTHEMPolic TRAPPDOB: [place] y Number: [id number] Hospital 782[address]Hmd: (330 [id number] Repository [phone] () Date:7224-74-46BI [address] [place] [address] 255[address]MQ: 07/06/2017 Secondary MAAME E TRAPPDOB: Barbi Insurance:MEDICARE [id number] Community PART A [facility] Hospital Number: Repository [id number] Date:2007-01-11 07/06/2017 Tertiary NOT GIVENUNK Josephine Insurance:SELF PAY [facility] Number: Effective Repository Date:2017-07-06 06/15/2017 MAAME E [id number] Primary TOVA D Barbi CHRISTOPHER Insurance:ANTHEMPolic TRAPPDOB: [place] y Number: [id number] Hospital [address]Yvy: 330 [id number] Repository [phone] () Date:2680-47-61[address]TZDRZYM, [place] [address]EN: 06/15/2017 Secondary MAAME E TRAPPDOB: Barbi Insurance:MEDICARE [id number] Community PART A [facility] Hospital Number: Repository [id number] Date:2017-06-15 06/15/2017 Tertiary NOT GIVENUNK Barbi Insurance:SELF PAY [facility] Number: Effective Repository Date:2017-06-15 06/08/2017 MAAME E [id number] Primary TOVA D Barbi CHRISTOPHER Insurance:ANTHEMPolic TRAPPDOB: [facility] myron BRYANT y Number: [id number] Hospital 635[address]Ueh: 330 [id number] Repository [phone] () Date:9536-65-77JP [address]MIZKINR, [place] [address]XK: 06/08/2017 Secondary MAAME E TRAPPDOB: Barbi Insurance:MEDICARE [id number] Community PART A [facility] Hospital Number: Repository [id number] Date:2007-01-11 06/08/2017 Tertiary NOT GIVENUNK Barbi Insurance:SELF PAY [facility] Number: Effective Repository Date:2017-05-14 06/08/2017 MAAME E [id number] Primary TOVA D Barbi CHRISTOPHER Insurance:ANTHEMPolic TRAPPDOB: [facility] y Number: [id number] Hospital 16[address]Dxj: (330 [id number] Repository [phone] (HP) Date:6741-55-72CG [address]ZMDEXBL, [place] [address]ID: 06/08/2017 Secondary MAAME E TRAPPDOB: [place] Insurance:MEDICARE [id number] Community PART A [facility] Hospital Number: Repository [id number] Date:2007-01-11 06/08/2017 Tertiary NOT GIVENUNK Barbi Insurance:SELF PAY [facility] Number: Effective Repository Date:2017-06-08 05/25/2017 MAAME Carney [id number] Primary TOVA Tanja WHITE Insurance:ANTHEMPolic TRAPPDOB: [facility] Number: [id number] Hospital [address]87[address]Hos: (057) [id number] Repository [phone] () Date:1172-96-57TM [address]GRTBRPQ, [place] [address]JO: 05/25/2017 Secondary MAAME Sophy TRAPPDOB: [place] Insurance:MEDICARE [id number] [facility] PART A [facility] Hospital Number: Repository [id number] Date:2007-01-11 05/25/2017 Tertiary NOT GIVENUNK Josephine Insurance:SELF PAY [facility]: Effective Repository Date:2017-05-25
== END ==
PROVIDERS: Family Provider Preventive Medicine Occupational Medicine; PCP Preventive Medicine Occupational Medicine; Referring Provider Nurse Practitioner Adult Health; Visit Provider Nurse Practitioner Adult Health
DX: R30.0 Dysuria (principal)
CPT/HCPCS: 87077; 87086; 87088; 87186

== ENCOUNTER 2018-03-29 10:15 | Outpatient (RCR) | payer BC, MEDICARE, SELFPAY ==
[2018-03-13 00:59] VITALS: BP 95/53; PULSE 89; RESP 18; TEMP 35.7
[2018-03-29 10:17] VITALS: BP 105/83; PULSE 97; RESP 16
--- NOTE | 2018-03-29 19:11 | PCM.WC.PN ---
Type of Wound Date of Service: 03/29/18 Chief Complaint: Right ischial pressure sore, Stage IV. History of Wound: Surgery 11/17/17 - Excision right ischial pressure sore, Stage IV, with partial ostectomy for osteomyelitis. Wound care - Silver. Operative culture, bone and soft tissue - Enterobacter cloacae. Preop culture showed Staphylococcus haemolyticus and Aerococcus viridans. He was discharged on Vancomycin, and Levaquin, and Diflucan. He has finished the Vancomycin and the Levaquin. Another wound culture from 01/11/18 showed Staphylococcus lentus and Granulicatella adiacens. He was started on Doxycycline and stopped them because of GI issues. The undermining in the ulcer is stable with some increased moisture in the ulcer today. Patient states he had some family issues and had spent more time in his wheelchair. Pathology - negative for osteomyelitis. Prealbumin from 11/18/17 was 21.3. Encourage nutritional supplementation with protein to help the healing process. CT Pelvis was done on 11/07/17. It showed right buttocks and upper posterior thigh decubitus ulcer with granulation tissue and air pocket extending to the ischial tuberosity appear larger when compared to the previous study. There is osteosclerosis in the ischial tuberosity with irregular periosteal bone formation suggesting chronic osteomyelitis. Today he denies fever. His appetite is good. It was noted according to his insurance carrier that he didn't qualify for HBO treatments at this time. Progress of Wound: Slightly improved with stable undermining but little more moisture in the ulcer. - Physical Exam Vital Signs Temp Pulse Resp BP 96.2 F L 97 16 105/83 H 03/13/18 00:59 03/29/18 10:17 03/29/18 10:17 03/29/18 10:17 Wound Measurements and Assessment WC - Nurse 1 - General Ulcer Measurement Start: 03/29/18 10:16 Freq: Status: Active Protocol: Activity Type Activity Date Activity User E-Sign Co-Sign Detail Recorded Client Recorded Date Recorded By Document 03/29/18 10:17 [id number] 03/29/18 10:19 CS 03/29/18 10:17 Wound Center Nurse 1 [Ulcer Assessment] #1 RT ISCHIUM- POST OP -Combined with other wound No -Current Size (cm) - Length 8.3 -Current Size (cm) - Width 2.9 -Current Size (cm) - Depth 2.5 -Total Square Cm 24.07 -Photo Taken No -Epithelialization None Present -Tunneling Yes -Tunneling Position (O'clock) 9 -Tunneling Distance (cm) 3.7 -Undermining/Tunneling No -Circular Undermining No -Exudate Amt Large (67-100%) -Exudate Type Serosanguineous -Wound Margin Distinct, Outline Attached -Granulation Amt Large (67-100%) -Granulation Quality Red -Slough/Fibrin Yes -Necrosis Amt Medium (34-66%) -Necrotic Tissue Type Adherent Slough -Texture (Elizabeth-wound Skin Appearance) Scarring -Moisture (Elizabeth-wound Skin Appearance Maceration ) -Color (Elizabeth-wound Skin Appearance) No Abnormality Assessed -Temperature (Elizabeth-wound Skin No Abnormality Appearance) (Pt Warm) -Tenderness on Palpation (Elizabeth-wound No Skin Appearance) -Ulcer Cleansing Rinsed/ Irrigated with Saline -Foul Odor after Cleansing No -Anesthetic Used 4% Lidocaine Solution [Edema Assessment] -Lower Limb Edema Present NA WC - Nurse 2 - General Ulcer CM Notes Start: 03/29/18 10:16 Freq: Status: Active Protocol: Activity Type Activity Date Activity User E-Sign Co-Sign Detail Recorded Client Recorded Date Recorded By Document 03/29/18 10:49 LIANE [id number] 03/29/18 10:50 LIANE 03/29/18 10:49 Wound Center Nurse 2 [Procedure/Treatment] #1 RT ISCHIUM- POST OP -Time 10:49 -Correct Patient Yes -Correct Side, Site, Position Yes -Correct Procedure Yes -Procedure Performed Yes -Type of Procedure Debridement -Clinical Debridement Muscle -Post Debridement Size (cm) - Length 8.3 -Post Debridement Size (cm) - Width 3 -Post Debridement Size (cm) - Depth 2.5 -Total Square Cm 24.9 -Wound/Ulcer Outcome Not Healed -Ulcer Cleansing Rinsed/ Irrigated with Saline -Foul Odor after Cleansing No -Bioengineered Tissue No -Bleeding Controlled with Pressure -Offloading No -Treatment Response Procedure Tolerated Well [See Physician Procedure note for Specifics] Pain Scale: 0-10 Numeric [Pain] -Is Patient Pain Free? Yes Debridement Note Post-Debridement Measurements/Treatment WC - Nurse 2 - General Ulcer CM Notes Start: 03/29/18 10:16 Freq: Status: Active Protocol: Activity Type Activity Date Activity User E-Sign Co-Sign Detail Recorded Client Recorded Date Recorded By Document 03/29/18 10:49 LIANE [id number] 03/29/18 10:50 LIANE 03/29/18 10:49 Wound Center Nurse 2 #1 RT ISCHIUM- POST OP -Time 10:49 -Correct Patient Yes -Correct Side, Site, Position Yes -Correct Procedure Yes -Procedure Performed Yes -Type of Procedure Debridement -Clinical Debridement Muscle -Post Debridement Size (cm) - Length 8.3 -Post Debridement Size (cm) - Width 3 -Post Debridement Size (cm) - Depth 2.5 -Total Square Cm 24.9 -Wound/Ulcer Outcome Not Healed -Ulcer Cleansing Rinsed/ Irrigated with Saline -Foul Odor after Cleansing No -Bioengineered Tissue No -Bleeding Controlled with Pressure -Offloading No -Treatment Response Procedure Tolerated Well Pain Scale: 0-10 Numeric Is Patient Pain Free? Yes Wound debrided: #1 Right ischial area. Laterality: Right Wound Grade/Stage: IV. Type of Debridement: Excisional debridement Anesthesia Used: 4% Lidocaine Solution Depth: Down to and including healthy tissue, in the subcutaneous layer, to muscle, to bone - bone is palpable but not debrided. Percentage of wound debrided: 100 Instrument Used: 7mm curette Tissue Removed: subcutaneous tissue and muscle. Severity: Fat Layer Exposed - muscle is exposed. bone is palpable but not debrided. Amount of bleeding with debridement: Mild Bleeding Controlled with: Pressure Patient tolerated procedure well - A wound culture was obtained today. Assessment/Plan Assessment: 1. Right ischial pressure sore, stage IV. 2. Paraplegia. 3. History of osteomyelitis. 4. s/p excision right ischial pressure sore, Stage IV, with partial ostectomy for osteomyelitis. Plan: Continue Silver dressing changes daily with Sorbian Sachet for absorption of drainage. His operative cultures in soft tissue and bone showed Enterobacter cloacae. Combined with the preop cultures that showed Staphylococcus haemolyticus and Aerococcus viridans, he was discharged on Vancomycin, Levaquin, and Diflucan. He has finished the Vancomycin and the Levaquin. A wound culture from 01/11/18 showed Staphylococcus lentus and Granulicatella adiacens. He was placed on Doxycycline and stopped them because of GI issues. The undermining in the ulcer is stable but there was more moisture in the ulcer today. A wound culture was obtained today. Patient states he had some family issues and had spent more time in his wheelchair. A CT Pelvis was done on 11/07/17. It was suspicious for osteomyelitis. Pathology was negative for osteomyelitis. At this time the insurance carrier has denied his HBO treatments. Patient needs to wait 4 months with continued treatments (surgery, wound care, and antibiotics). Will repeat the CT scan. If still suspicious for osteomyelitis, will reapply for HBO treatments for chronic refractory osteomyelitis. Prealbumin from 11/18/17 was 21.3. Encourage nutritional supplementation with protein to help the healing process. Followup 3 weeks.
--- OUTSIDE RECORDS SUMMARY | 2018-06-30 23:14 | XMS RPT_ITS ---
:1965 Author Organization [place] Support Name Relationship Address Phone YOANDY ALONSO Unavailable [address] + [place] [address] D Unavailable Unavailable Unavailable NAKUL, TOVA Unavailable [address] + [place] [address] YOANDY ALONSO Unavailable [address] + [place] [address] D Unavailable Unavailable Unavailable NAKUL, TOVA Unavailable [address] + [place] [address] YOANDY ALONSO Unavailable [address] + [place] [address] D Unavailable Unavailable Unavailable NAKUL, TOVA Unavailable [address] + [place] [address] YOANDY ALONSO Unavailable [address] + [place] [address] D Unavailable Unavailable Unavailable NAKUL, TOVA Unavailable [address] + [place] [address] YOANDY ALONSO Unavailable [address] + [place] [address] D Unavailable Unavailable Unavailable NAKUL, TOVA Unavailable [address] + [place] [address] YOANDY ALONSO Unavailable [address] + [place] [address] D Unavailable Unavailable Unavailable NAKUL, TOVA Unavailable [address] + [place] [address] YOANDY ALONSO Unavailable [address] + [place] [address] D Unavailable Unavailable Unavailable NAKUL, TOVA Unavailable [address] + [place] [address] ALONSO, YOANDY Unavailable [address] + [place] [address] D Unavailable Unavailable Unavailable NAKUL, TOVA Unavailable [address] + [place] [address] ALONSO, YOANDY Unavailable [address] + [place] [address] D Unavailable Unavailable Unavailable NAKUL, TOVA Unavailable [address] + [place] [address] ALONSO, YOANDY Unavailable [address] + [place] [address] D Unavailable Unavailable Unavailable NAKUL, TOVA Unavailable [address] + [place] [address] ALONSO, YOANDY Unavailable [address] + [place] [address] D Unavailable Unavailable Unavailable NAKUL, TOVA Unavailable [address] + [place] [address] ALONSO, YOANDY Unavailable [address] + [place] [address] D Unavailable Unavailable Unavailable NAKUL, TOVA Unavailable [address] + [place] [address] ALONSO, YOANDY Unavailable [address] + [place] [address] D Unavailable Unavailable Unavailable NAKUL, TOVA Unavailable [address] + [place] [address] GAVIN, YOANDY Unavailable [address] + [place] [address] D Unavailable Unavailable Unavailable NAKUL, TOVA Unavailable [address] + [place] [address] ALONSO, YOANDY Unavailable [address] + [place] [address] D Unavailable Unavailable Unavailable NAKUL, TOVA Unavailable [address] + [place] [address] ALONSO, YOANDY Unavailable [address] + [place] [address] D Unavailable Unavailable Unavailable NAKUL, TOVA Unavailable [address] + [place] [address] NAKUL, TOVA Unavailable [address] + [place] [address] NAKUL, TOVA Unavailable [address] + [place] [address] KHANG ALONSORA Unavailable [address] + [place] [address] D Unavailable Unavailable Unavailable NAKUL, TOVA Unavailable [address] + [place] [address] KHANG ALONSORA Unavailable [address] + [place] [address] D Unavailable Unavailable Unavailable NAKUL, TOVA Unavailable [address] + [place] [address] GAVIN YOANDY Unavailable [address] + [place] [address] D Unavailable Unavailable Unavailable NAKUL, TOVA Unavailable [address] + [place] [address] GAVIN YOANDY Unavailable [address] + [place] [address] D Unavailable Unavailable Unavailable NAKUL, TOVA Unavailable [address] + [place] [address] GAVIN YOANDY Unavailable [address] + [place] [address] D Unavailable Unavailable Unavailable NAKUL, TOVA Unavailable [address] + [place] [address] GAVIN YOANDY Unavailable [address] + [place] [address] D Unavailable Unavailable Unavailable NAKUL, TOVA Unavailable [address] + [place] [address] GAVIN YOANDY Unavailable [address] + [place] [address] D Unavailable Unavailable Unavailable NAKUL, TOVA Unavailable [address] + [place] [address] GAVIN YOANDY Unavailable [address] + [place] [address] D Unavailable Unavailable Unavailable NAKUL, TOVA Unavailable [address] + [place] [address] ALONSO, YOANDY Unavailable [address] + [place] [address] D Unavailable Unavailable Unavailable NAKUL, TOVA Unavailable [address] + [place] [address] ALONSO, YOANDY Unavailable [address] + [place] [address] D Unavailable Unavailable Unavailable NAKUL, TOVA Unavailable [address] + [place] [address] ALONSO, YOANDY Unavailable [address] + [place] [address] D Unavailable Unavailable Unavailable NAKUL, TOVA Unavailable [address] + [place] [address] ALONSO, YOANDY Unavailable [address] + [place] [address] D Unavailable Unavailable Unavailable NAKUL, TOVA Unavailable [address] + [place] [address] ALONSO, YOANDY Unavailable [address] + [place] [address] D Unavailable Unavailable Unavailable NAKUL, TOVA Unavailable [address] + [place] [address] ALONSO, YOANDY Unavailable [address] + [place] [address] D Unavailable Unavailable Unavailable NAKUL, TOVA Unavailable [address] + [place] [address] ALONSO, YOANDY Unavailable [address] + [place] [address] D Unavailable Unavailable Unavailable NAKUL, TOVA Unavailable [address] + [place] [address] ALONSO, YOANDY Unavailable [address] + [place] [address] D Unavailable Unavailable Unavailable NAKUL, TOVA Unavailable [address] + [place] [address] ALONSO, YOANDY Unavailable [address] + [place] [address] D Unavailable Unavailable Unavailable NAKUL, TOVA Unavailable [address] + [place] [address] YOANDY ALONSO Unavailable [address] + [place] [address] D Unavailable Unavailable Unavailable NAKUL, TOVA Unavailable [address] + [place] [address] KHANG ALONSORA Unavailable [address] + [place] [address] D Unavailable Unavailable Unavailable NAKUL, TOVA Unavailable [address] + [place] [address] YOANDY ALONSO Unavailable [address] + [place] [address] D Unavailable Unavailable Unavailable NAKUL, TOVA Unavailable [address] + [place] [address] YOANDY ALONSO Unavailable [address] + [place] [address] D Unavailable Unavailable Unavailable NAKUL, TOVA Unavailable [address] + [place] [address] YOANDY ALONSO Unavailable [address] + [place] [address] D Unavailable Unavailable Unavailable NAKUL, TOVA Unavailable [address] + [place] [address] YOANDY ALONSO Unavailable [address] + [place] [address] D Unavailable Unavailable Unavailable NAKUL, TOVA Unavailable [address] + [place] [address] KHANG ALONSORA Unavailable [address] + [place] [address] D Unavailable Unavailable Unavailable NAKUL, TOVA Unavailable [address] + [place] [address] KHANG ALONSORA Unavailable [address] + [place] [address] D Unavailable Unavailable Unavailable NAKUL, TOVA Unavailable [address] + [place] [address] Care Team Providers Name Role Phone KELLY, JESSICA Attending Unavailable KELLY, JESSICA Referring Unavailable KELLY, JESSICA Primary Care Unavailable NitaChanell Attending Unavailable Nita, Chanell Taylor Referring Unavailable Kelly, Jessica Primary Care Unavailable Slaby, Addison Attending Unavailable Kelly, Jessica Primary Care Unavailable SlabyAddison Consulting Unavailable Jesus Manuel, Addison Attending Unavailable Kelly, Jessica Primary Care Unavailable Slaby, Addison Attending Unavailable Kelly, Jessica Primary Care Unavailable Slaby, Addison Consulting Unavailable Slaby, Addison Attending Unavailable Kelly, Jessica Primary Care Unavailable Slaby, Addison Attending Unavailable Kelly, Jessica Primary Care Unavailable Lilly, Martín Serna Attending Unavailable Lilly, Martín Serna Referring Unavailable Kelly, Jessica Primary Care Unavailable Slaby, Addison Attending Unavailable Kelly, Jessica Primary Care Unavailable Slaby, Addison Attending Unavailable Kelly, Jessica Primary Care Unavailable Slaby, Addison Consulting Unavailable Jesus Manuel, Addison Attending Unavailable Kelly, Jessica Primary Care Unavailable Slaby, Addison Consulting Unavailable Slaby, Addison Attending Unavailable Kelly, Jessica Primary Care Unavailable SlabyAddison Consulting Unavailable Slaby, Addison Attending Unavailable Kelly, Jessica Primary Care Unavailable Slaby, Addison Attending Unavailable Kelly, Jessica Primary Care Unavailable Nita, Chanell Taylor Attending Unavailable Nita, Chanell Taylor Referring Unavailable Kelly, Jessica Primary Care Unavailable Slaby, Addison Attending Unavailable Kelly, Jessica Primary Care Unavailable Slaby, Addison Attending Unavailable Kelly, Jessica Primary Care Unavailable Slabtsering, Addison Attending Unavailable SlabAddison cagle Referring Unavailable Kelly, Jessica Primary Care Unavailable Slabtsering, Addison Attending Unavailable SlabyAddison Referring Unavailable Kelly, Jessica Primary Care Unavailable DeHorta, William Consulting Unavailable Slabtsering, Addison Attending Unavailable Kelly, Jessica Primary Care Unavailable Slabtsering, Addison Attending Unavailable SlabAddison cagle Referring Unavailable Kelly, Jessica Primary Care Unavailable DeHorta, William Consulting Unavailable Addison Ken Consulting Unavailable Jesus Manuel, Addison Attending Unavailable SlabyAddison Referring Unavailable Kelly, Jessica Primary Care Unavailable Slabtsering, Addison Attending Unavailable Kelly, Jessica Primary Care Unavailable Slabtsering, Addison Attending Unavailable Kelly, Jessica Primary Care Unavailable SlabAddison cagle Consulting Unavailable Addison Ken Referring Unavailable Slaby, Addison Attending Unavailable Kelly, [...] Primary Care Unavailable Slaby, Addison Consulting Unavailable Moodispaw, Franky Attending Unavailable Slaby, Addison Referring Unavailable Slaby, Addison Attending Unavailable Kelly, Jessica Primary Care Unavailable Slaby, Addison Attending Unavailable Slaby, Addison Referring Unavailable Kelly, Jessica Primary Care Unavailable Slaby, Addison Attending Unavailable Kelly, Jessica Primary Care Unavailable Slaby, Addison Consulting Unavailable Slaby, Addison Attending Unavailable Kelly, Jessica Primary Care Unavailable Slaby, Addison Consulting Unavailable Estela, Noemy Carney Attending Unavailable Kelly, Jessica Primary Care Unavailable [...] Primary Care Unavailable Slaby, Addison Consulting Unavailable PROBLEMS PROBLEMS DATE TYPE CONDITION / CODE ATTENDING STATUS SOURCE 01/11/2018 Unknown 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, stage 4 / Hospital L89.314(ICD-10) Repository 01/04/2018 Unknown M86.152 - Other Addison Ken Active [facility] acute osteomyelitis, [facility] left femur / Hospital M86.152(ICD-10) Repository 01/04/2018 Unknown B96.89 - Other Addison Ken Active [facility] specified bacterial Community agents as the cause Hospital of diseases Repository classified elsewhere / B96.89(ICD-10) 11/25/2017 Unknown M86.9 - Addison Ken Active [facility] Osteomyelitis, [facility] unspecified / Hospital M86.9(ICD-10) Repository 12/28/2017 Unknown Z01.810 - Encounter Franky Cartwright Active [facility] for preprocedural [facility] cardiovascular Hospital examination / Repository Z01.810(ICD-10) 12/20/2017 Unknown L89.214 - Pressure SlabAddison cagle Active [facility] ulcer of right hip, [facility]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 Approval by Infectious Disease Specialist required before non-formulary drugs may be ordered and/or dispensed. Enterococcus faecalis: REACTION Ampicillin $ <=2 S Benzylpenicillin NF 4 S Gentamicin SYN-S S Linezolid $$$$ 2 S Tigecycline $$$$ <=0.12 S Streptomycin $ SYN-S S Vancomycin $ 1 S (NF) indicates non-formulary drug at [facility]. Approval by Infectious Disease Specialist required before non-formulary drugs may be ordered and/or dispensed. * CLSI guidelines does not recommend testing of cephalosporins. This interpretation is deduced from Beta-lactam/penicillin results. Streptococcus mitis/ oralis: REACTION Ampicillin $ <=0.25 S Clindamycin $$ <=0.25 S Erythromycin $ 2 R Tigecycline $$$$ <=0.06 S Vancomycin $ 0.5 S (NF) indicates non-formulary drug at [facility]. Approval by Infectious Disease Specialist required before non-formulary drugs may be ordered and/or dispensed. * CLSI guidelines does not recommend testing of cephalosporins. This interpretation is deduced from Beta-lactam/penicillin results. Cult, Anaerobic No anaerobic bacteria isolated. Performed By: #### M100.1500 #### [facility] [address] [place], [place], [id number] Observed: 03/26/2018 Status: F Source: [facility] CULTURE, URINE 1:00 PM [facility] Urine Culture ORGANISM 1: Citrobacter freundii [place] Count 25,000-50,000 ORGANISM 2: Enterococcus faecalis [place] Count 25,000-50,000 Citrobacter freundii: REACTION Amoxacillin/Clavulanic Acid $ 8 R Cefazolin $ >=64 R Cefepime $ <=1 S Ceftriaxone $ <=1 S Ciprofloxacin $ <=0.25 S Ertapenim $$$ <=0.5 S Gentamicin $ <=1 S Imipenem *NF <=0.25 S Levofloxacin $ <=0.12 S Nitrofurantoin $ <=16 S Tobramycin $ <=1 S Trimethoprim/Sulfametho $ <=20 S (NF) indicates non-formulary drug at [facility]. Approval by Infectious Disease Specialist required before non-formulary drugs may be ordered and/or dispensed. Enterococcus faecalis: REACTION Ampicillin $ <=2 S Benzylpenicillin NF 4 S Ciprofloxacin $ 2 I Gentamicin SYN-S S Levofloxacin $ 2 S Linezolid $$$$ 2 S Nitrofurantoin $ <=16 S Streptomycin $ SYN-S S Tetracycline NF >=16 R Vancomycin $ 1 S (NF) indicates non-formulary drug at [facility]. Approval by Infectious Disease Specialist required before non-formulary drugs may be ordered and/or dispensed. * CLSI guidelines does not recommend testing of cephalosporins. This interpretation is deduced from Beta-lactam/penicillin results. Performed By: #### M100.0650 #### [facility] [address] [place], [address] Observed: 01/11/2018 Status: F Source: [facility] CULTURE, DEEP WOUND 11:35 AM [facility] Gram Stain Gram Stain 4+ Red [...] 2 S (NF) indicates non-formulary drug at [facility]. Approval by Infectious Disease Specialist required before non-formulary drugs may be ordered and/or dispensed. * CLSI guidelines does not recommend testing of cephalosporins. This interpretation is deduced from Beta-lactam/penicillin results. Cult, Anaerobic No anaerobic bacteria isolated. Performed By: #### M100.1500 #### [facility] [address] [place], [place], [address] CBC-COMPLETE BLOOD CNT Collected: 12/28/2017 Status: F Source: [facility] NO DIFF 9:25 [facility] TYPE CODE TESTS RESULT OUT OF [...] 8.9 Performed By: #### L100.0500, L101.9900 #### [facility] [address] [place], [place], [address] ERYTHROCYTE SED RATE Collected: 12/28/2017 Status: F Source: [place] 9:25 AM [facility] TYPE CODE TESTS RESULT OUT OF RANGE REFERENCE UNITS LAB L102.0000 0-20 mm/hr High SED RATE 21 Performed By: #### L100.0500, L101.9900 #### [facility] [address] [place], [place], [address] COMPREHENSIVE METABOLIC Collected: 12/28/2017 Status: F Source: [facility] 9:25 AM [facility] TYPE CODE TESTS RESULT OUT OF [...] 11 Performed By: #### L500.4050, L501.6710 #### [facility] [address] [place], [place], [address] CRP Collected: 12/28/2017 Status: F Source: [place] 9:25 AM [facility] TYPE CODE TESTS RESULT OUT OF RANGE REFERENCE UNITS LAB L501.6710 0.0-3.0 mg/L High 13.90 C-REACTIVE PROT Result Comment: C-Reactive Protein (CRP) provides useful information for the diagnosis, therapy and monitoring of inflammatory processes and associated diseases. For the evaluation of Relative Risk for Cardiovascular Disease, a High Sensitivity CRP (HSCRP) should be ordered. Performed By: #### L500.4050, L501.6710 #### [facility] [address] [place], [address] VANCOMYCIN, TROUGH Collected: 12/28/2017 Status: F Source: [facility] LEVEL 9:25 AM [facility] Order Comment: Time Medication is to [...] (Ventilator/Healtcare Associated) -Sepsis PLEASE CONTACT PHARMACY SERVICES (#[id number]) FOR INTERPRETATION OF RESULTS. Performed By: #### L501.8820 #### [facility] [address] [place], [place], [id number] CBC-COMPLETE BLOOD CNT Collected: 12/21/2017 Status: F Source: [place] NO DIFF 9:40 AM [facility] TYPE CODE TESTS RESULT OUT OF [...] 9.0 Performed By: #### L100.0500, L101.9900 #### [facility] [address] [place], [place], [id number] ERYTHROCYTE SED RATE Collected: 12/21/2017 Status: F Source: [place] 9:40 AM [facility] TYPE CODE TESTS RESULT OUT OF RANGE REFERENCE UNITS LAB L102.0000 0-20 mm/hr High SED RATE 29 Performed By: #### L100.0500, L101.9900 #### [facility] [address] [place], [place], [id number] COMPREHENSIVE METABOLIC Collected: 12/21/2017 Status: F Source: [facility] 9:40 AM [facility] TYPE CODE TESTS RESULT OUT OF [...] 12 Performed By: #### L500.4050, L501.6710 #### [facility] [address] [place], [address] CRP Collected: 12/21/2017 Status: F Source: [place] 9:40 AM [facility] TYPE CODE TESTS RESULT OUT OF RANGE REFERENCE UNITS LAB L501.6710 0.0-3.0 mg/L High 20.70 C-REACTIVE PROT Result Comment: C-Reactive Protein (CRP) provides useful information for the diagnosis, therapy and monitoring of inflammatory processes and associated diseases. For the evaluation of Relative Risk for Cardiovascular Disease, a High Sensitivity CRP (HSCRP) should be ordered. Performed By: #### L500.4050, L501.6710 #### [facility] [address] [facility] [place], [address] VANCOMYCIN, TROUGH Collected: 12/21/2017 Status: F Source: [place] LEVEL 9:40 AM [facility] Order Comment: Time Medication is to [...] (Ventilator/Healtcare Associated) -Sepsis PLEASE CONTACT PHARMACY SERVICES (#[id number]) FOR INTERPRETATION OF RESULTS. Performed By: #### L501.8820 #### [facility] [address] [facility] [place], [address] CBC-COMPLETE BLOOD CNT Collected: 12/15/2017 Status: F Source: [place] NO DIFF 10:00 AM [facility] TYPE CODE TESTS RESULT OUT OF [...] 8.9 Performed By: #### L100.0500, L101.9900 #### [facility] [address] [place], [place], [address] ERYTHROCYTE SED RATE Collected: 12/15/2017 Status: F Source: [place] 10:00 AM [facility] TYPE CODE TESTS RESULT OUT OF RANGE REFERENCE UNITS LAB L102.0000 0-20 mm/hr High SED RATE 25 Performed By: #### L100.0500, L101.9900 #### [facility] [address] [place], [place], [address] VANCOMYCIN, TROUGH Collected: 12/15/2017 Status: F [facility] Order Comment: Time Medication is to [...] (Ventilator/Healtcare Associated) -Sepsis PLEASE CONTACT PHARMACY SERVICES (#[id number]) FOR INTERPRETATION OF RESULTS. Performed By: #### L501.8820 #### [facility] [address] [place], [place], [address] COMPREHENSIVE METABOLIC Collected: 12/15/2017 Status: F Source: [facility] 10:00 AM [facility] TYPE CODE TESTS RESULT OUT OF [...] 14 Performed By: #### L500.4050, L501.6710 #### [facility] [address] [place], [address] CRP Collected: 12/15/2017 Status: F Source: [place] 10:00 AM [facility] TYPE CODE TESTS RESULT OUT OF RANGE REFERENCE UNITS LAB L501.6710 0.0-3.0 mg/L High 11.10 C-REACTIVE PROT Result Comment: C-Reactive Protein (CRP) provides useful information for the diagnosis, therapy and monitoring of inflammatory processes and associated diseases. For the evaluation of Relative Risk for Cardiovascular Disease, a High Sensitivity CRP (HSCRP) should be ordered. Performed By: #### L500.4050, L501.6710 #### [facility] [address] [facility] [place], [place], [address] CBC-COMPLETE BLOOD CNT Collected: 12/07/2017 Status: F Source: [place] NO DIFF 9:40 AM [facility] TYPE CODE TESTS RESULT OUT OF [...] 8.9 Performed By: #### L100.0500, L101.9900 #### [facility] [address] [place], [place], [id number] ERYTHROCYTE SED RATE Collected: 12/07/2017 Status: F Source: [place] 9:40 AM [facility] TYPE CODE TESTS RESULT OUT OF RANGE REFERENCE UNITS LAB L102.0000 0-20 mm/hr High SED RATE 34 Performed By: #### L100.0500, L101.9900 #### [facility] [address] [place], [place], [address] VANCOMYCIN, TROUGH Collected: 12/07/2017 Status: F Source: [facility] 9:40 AM [facility] Order Comment: Time Medication is to [...] (Ventilator/Healtcare Associated) -Sepsis PLEASE CONTACT PHARMACY SERVICES (#[id number]) FOR INTERPRETATION OF RESULTS. Performed By: #### L501.8820 #### [facility] [address] [place], [address] COMPREHENSIVE METABOLIC Collected: 12/07/2017 Status: F [facility] TYPE CODE TESTS RESULT OUT OF [...] 12 Performed By: #### L500.4050, L501.6710 #### [facility] [address] [facility] [place], [address] CRP Collected: 12/07/2017 Status: F Source: [place] 9:40 AM [facility] TYPE CODE TESTS RESULT OUT OF RANGE REFERENCE UNITS LAB L501.6710 0.0-3.0 mg/L High 14.90 C-REACTIVE PROT Result Comment: C-Reactive Protein (CRP) provides useful information for the diagnosis, therapy and monitoring of inflammatory processes and associated diseases. For the evaluation of Relative Risk for Cardiovascular Disease, a High Sensitivity CRP (HSCRP) should be ordered. Performed By: #### L500.4050, L501.6710 #### [facility] [address] [facility] [place], [address] CBC-COMPLETE BLOOD CNT Collected: 11/29/2017 Status: F Source: [place] NO DIFF 9:45 AM [facility] TYPE CODE TESTS RESULT OUT OF [...] 8.4 Performed By: #### L100.0500, L101.9900 #### [facility] [address] [place], [place], [address] ERYTHROCYTE SED RATE Collected: 11/29/2017 Status: F Source: [place] 9:45 AM [facility] TYPE CODE TESTS RESULT OUT OF RANGE REFERENCE UNITS LAB L102.0000 0-20 mm/hr High SED RATE 40 Performed By: #### L100.0500, L101.9900 #### [facility] [address] [place], [place], [address] COMPREHENSIVE METABOLIC Collected: 11/29/2017 Status: F Source: [facility] 9:45 AM [facility] TYPE CODE TESTS RESULT OUT OF [...] 11 Performed By: #### L500.4050, L501.6710 #### [facility] [address] [facility] [place], [address] CRP Collected: 11/29/2017 Status: F Source: [place] 9:45 AM [facility] REPOSITORY TYPE CODE TESTS RESULT OUT OF RANGE REFERENCE UNITS LAB L501.6710 0.0-3.0 mg/L High 37.40 C-REACTIVE PROT Result Comment: C-Reactive Protein (CRP) provides useful information for the diagnosis, therapy and monitoring of inflammatory processes and associated diseases. For the evaluation of Relative Risk for Cardiovascular Disease, a High Sensitivity CRP (HSCRP) should be ordered. Performed By: #### L500.4050, L501.6710 #### [facility] [address] [facility] [place], [address] VANCOMYCIN, TROUGH Collected: 11/29/2017 Status: F Source: [place] LEVEL 9:45 AM [facility] RE[facility]ITORY Order Comment: Time Medication is to [...] (Ventilator/Healtcare Associated) -Sepsis PLEASE CONTACT PHARMACY SERVICES (#[id number]) FOR INTERPRETATION OF RESULTS. Performed By: #### L501.8820 #### [facility] [address] [place], [place], [address] CBC-COMPLETE BLOOD CNT Collected: 11/23/2017 Status: F Source: [place] NO DIFF 2:10 PM [facility] REPOSITORY TYPE CODE TESTS RESULT OUT OF [...] 8.7 Performed By: #### L100.0500, L101.9900 #### [facility] [address] [facility] [place], [place], [address] ERYTHROCYTE SED RATE Collected: 11/23/2017 Status: F Source: [place] 2:10 PM [facility] REPOSITORY TYPE CODE TESTS RESULT OUT OF RANGE REFERENCE UNITS LAB L102.0000 0-20 mm/hr High SED RATE 45 Performed By: #### L100.0500, L101.9900 #### [facility] [address] [facility] [place], [place], [address] VANCOMYCIN, TROUGH Collected: 11/23/2017 Status: F Source: [place] LEVEL 2:10 PM [facility] RE[facility] Order Comment: Time Medication is to [...] (Ventilator/Healtcare Associated) -Sepsis PLEASE CONTACT PHARMACY SERVICES (#[id number]) FOR INTERPRETATION OF RESULTS. Performed By: #### L501.8820 #### [facility] [address] [place], [place], [address] COMPREHENSIVE METABOLIC Collected: 11/23/2017 Status: F Source: [facility] 2:10 PM [facility] REPOSITORY TYPE CODE TESTS RESULT OUT OF [...] 12 Performed By: #### L500.4050, L501.6710 #### [facility] [address] [place], [address] CRP Collected: 11/23/2017 Status: F Source: [place] 2:10 PM [facility] REPOSITORY TYPE CODE TESTS RESULT OUT OF RANGE REFERENCE UNITS LAB L501.6710 0.0-3.0 mg/L High 38.10 C-REACTIVE PROT Result Comment: C-Reactive Protein (CRP) provides useful information for the diagnosis, therapy and monitoring of inflammatory processes and associated diseases. For the evaluation of Relative Risk for Cardiovascular Disease, a High Sensitivity CRP (HSCRP) should be ordered. Performed By: #### L500.4050, L501.6710 #### [facility] [address] [facility] [place], [address] HISTORY AND PHYSICAL Observed: 11/20/2017 Status: F Source: [place] EXAM 12:38 PM [facility] REPOSITORY [facility] Medical Records Department [address] [place] [address] History and Physical 11/16/17 1713 MR#: [id number] Acct: [id number] Name: ZORAIDA MOTA Rep #: [id number] : 1965 52 From: Addison Ken MD [...] 11/20/2017 Status: F Source: [place] 12:36 PM [facility] REPOSITORY [facility] Medical Records Department [address] [place] [address] Operative Report 11/17/172056 MR#: [id number] Acct: [id number] Name: NAKULZORAIDA Sophy Rep #: [id number] : 1965 52 From: Addison Ken MD PCP: Jessica Mendoza DO Status: DEP [facility] Y Location: [facility] Report of Operation Date of Procedure: 11/17/17 [...] - 6 x 2 x 2 cm. 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 Type of Anesthesia:: Local MAC [...] No Code Visit Surgery Charges CPT - 57707 ICD-10 - L89.314, M86.9, G82.20 11/20/17 1236 <Electronically signed by Addison Ken MD> Date Addison Ken MD CC: William Adam MD; Addison Ken MD; Jessica Mendoza DO; [facility] Signed DISCHARGE INSTRUCTION Observed: 11/18/2017 Status: F Source: [place] 12:58 PM [facility] RE[facility]ITORY [facility] Medical Records Department [address] [place] [address] Instructions for Home/Discharge Instructions 11/18/17 1254 MR#: [id number] Acct: [id number] Name: ZORAIDA MOTA Rep #: [id number] : 1965 52 From: Addison Ken MD PCP: Jessica Mendoza DO Status: REG [place] You will use the following diet at [...] When: wound center in two weeks. Call [phone]. Proposed Discharge Date: 11/18/17 11/18/17 1258 <Electronically signed by Addison Ken MD> Date Addison Ken MD CC: William Adam MD; Jessica Mendoza DO; [facility] 12 LEAD ELECTROCARDIOGRAM Observed: 11/18/2017 Status: F Source: [place] 11:00 AM [facility] REPOSITORY [facility] Cardiovascular Services [address] [place] [address] 12 Lead EKG 11/16/17 1227 MR#: [id number] Acct: [id number] Name: ZORAIDA MOTA Rep #: [id number] : 1965 52 From: Franky Cartwright MD Attending Dr: Addison Ken MD Status: REG SDC Ordering Dr: Addison Ken MD Date: 11/16/17 Location: [facility] Sex: M C Admitted: Test Reason : PRE OP Blood Pressure : / mmHG Vent. Rate : 070 BPM Atrial Rate : 070 BPM P-R Int : 124 ms QRS Dur : 084 ms QT Int : 386 ms P-R-T Axes : 068 070 072 degrees QTc Int : 416 ms Normal sinus rhythm Normal ECG Confirmed by CHAY JACOBSON, FRANKY ([id number]), photo editor SHAVON JOHNSON ([id number]) on 11/18/2017 11:00:16 AM Referred By: Addison Ken Confirmed By:FRANKY CARTWRIGHT MD 11/18/17 1100 Date Franky Cartwright MD CC: Addison Ken MD; Jessica Romero ERYTHROCYTE SED RATE Collected: 11/18/2017 Status: F Source: [place] 6:28 AM [facility] REPOSITORY TYPE CODE TESTS RESULT OUT OF RANGE REFERENCE UNITS LAB L102.0000 0-20 mm/hr High SED RATE 29 Performed By: #### L101.9900, L100.0500 #### [facility] [address] [place], [place], [address] CBC-COMPLETE BLOOD CNT Collected: 11/18/2017 Status: F Source: [place] NO DIFF 6:28 AM [facility] REPOSITORY TYPE CODE TESTS RESULT OUT OF [...] 8.6 Performed By: #### L101.9900, L100.0500 #### [facility] [address] [facility] [place], [place], [address] VANCOMYCIN, TROUGH Collected: 11/18/2017 Status: F Source: [place] LEVEL 6:28 AM [facility] RE[facility]ITORY Order Comment: Has pt arrived? Y [...] (Ventilator/Healtcare Associated) -Sepsis PLEASE CONTACT PHARMACY SERVICES (#[id number]) FOR INTERPRETATION OF RESULTS. Performed By: #### L501.8820 #### [facility] [address] [place], [place], [address] BASIC METABOLIC Collected: 11/18/2017 Status: F Source: [place] PROFILE (BMP) 6:28 AM [facility] REPOSITORY TYPE CODE TESTS RESULT OUT OF [...] Performed By: #### L500.2500, L501.6710, L506.0500 #### [facility] [address] [facility] [place], [place], [address] CRP Collected: 11/18/2017 Status: F Source: [place] 6:28 AM [facility] REPOSITORY TYPE CODE TESTS RESULT OUT OF RANGE REFERENCE UNITS LAB L501.6710 0.0-3.0 mg/L High 14.30 C-REACTIVE PROT Result Comment: C-Reactive Protein (CRP) provides useful information for the diagnosis, therapy and monitoring of inflammatory processes and associated diseases. For the evaluation of Relative Risk for Cardiovascular Disease, a High Sensitivity CRP (HSCRP) should be ordered. Performed By: #### L500.2500, L501.6710, L506.0500 #### [facility] [address] [facility] [place], [place], [address] PREALBUMIN Collected: 11/18/2017 Status: F Source: [place] 6:28 AM [facility] REPOSITORY TYPE CODE TESTS RESULT OUT OF RANGE REFERENCE UNITS LAB L506.0500 20.0-40.0 mg/dL Normal PREALBUMIN 21.3 Performed By: #### L500.2500, L501.6710, L506.0500 #### [facility] [address] [place], [address] Observed: 11/17/2017 Status: F Source: [place] CULTURE, DEEP WOUND 8:30 AM [facility] RE[facility] Order Date: 11/12/16 Has pt arrived? [...] <=20 S (NF) indicates non-formulary drug at [facility]. Approval by Infectious Disease Specialist required before non-formulary drugs may be ordered and/or dispensed. Cult, Anaerobic No anaerobic bacteria isolated. Performed By: #### M100.1500 #### [facility] [address] [facility] [place], [address] Observed: 11/17/2017 Status: F Source: [place] CULTURE, DEEP WOUND 8:30 AM [facility] RE[facility]IT[facility] Order Date: 11/12/16 Has pt arrived? [...] <=20 S (NF) indicates non-formulary drug at [facility]. Approval by Infectious Disease Specialist required before non-formulary drugs may be ordered and/or dispensed. Cult, Anaerobic No anaerobic bacteria isolated. Performed By: #### M100.1500 #### [facility] [address] [place], [address] Observed: 11/17/2017 Status: F Source: [place] KYLE, FUNGUS W/ 8:30 AM [facility] [id number] REPOSITORY Comments: RIGHT ISCHIAL PRESSURE SORE TISSUE Has pt arrived? Y Is this test to exclude patient from TB Isolation? N Cu,[id number] TEST[facility]. ORIGINAL REPORT ON FILE IN LAB CONTAINS ADDITIONAL TEST SITE INFORMATION. CUF No yeast or mold isolated after [address] [facility]FOR[facility]. ORIGINAL REPORT ON FILE IN LAB CONTAINS ADDITIONAL TEST SITE INFORMATION. Fungus Stain No yeast or mold observed. Performed By: #### M600.1900 #### [facility] [address] [place], [address] Observed: 11/17/2017 Status: F Source: [place] SAROJ, FUNGUS W/ 8:30 AM [facility] [id number] REPOSITORY Comments: RIGHT ISCHIAL PRESSURE SORE BONE Has pt arrived? Y Is this test to exclude patient from TB Isolation? N Cu,Evsrvm8971 TESTING PERFORMED AT [facility]. ORIGINAL REPORT ON FILE IN LAB CONTAINS ADDITIONAL TEST SITE INFORMATION. CUF No yeast or mold isolated after [address] TESTING PERFORMED AT [facility]. ORIGINAL REPORT ON FILE IN LAB CONTAINS ADDITIONAL TEST SITE INFORMATION. Fungus Stain No yeast or mold observed. Performed By: #### M600.1900 #### [facility] [address] [place], [address] PRESSURE SORE Observed: 11/17/2017 Status: F Source: [place] 8:00 AM [facility] REPOSITORY Patient: ZORAIDA MOTA : 1965 (52/M) Acct Num: [id number] Phys: Addison Ken MD Unit Num: [id number] Loc: [facility] Specimen: [id number] Received: 11/17/17906 Spec Type: PRESS SORE TISSUES [...] piece shows an extensive area of ulceration. Subscription Agent sections are submitted in two cassettes. B - Received in fixative is one container labeled with the patient's name and designated right ischial bone pressure sore. The specimen consists of multiple pieces of bone that in aggregate measure 2 x 1.5 x 0.4 cm. The entire specimen is submitted in one cassette after decalcification. / ILDA:lucila 11/17/17 TC:2 CPT: 24779 x2, 40427 HEADER OPERATION: Excision, pressure sore, partial ostectomy [...] on file> Performed By: #### PPRES #### [facility] [place], [address] CBC-COMPLETE BLOOD CNT Collected: 11/16/2017 Status: F Source: [place] NO DIFF 12:05 PM [facility] REPOSITORY TYPE CODE TESTS RESULT OUT OF [...] MPV 8.7 Performed By: #### L100.0500 #### [facility] [address] [facility] [place], [address] BASIC METABOLIC Collected: 11/16/2017 Status: F Source: [place] PROFILE (BMP) 12:05 PM [facility] REPOSITORY TYPE CODE TESTS RESULT OUT OF [...] GAP 12 Performed By: #### L500.2500 #### [facility] [address] [place], [address] PELVIS WITHOUT IV Observed: 11/07/2017 Status: F Source: [place] CONTRAST 10:43 AM [facility] REPOSITORY [facility] Imaging Services [address] [place] [address] Pelvis without IV Contrast MR#: [id number] Acct: [id number] Name: ZORAIDA MOTA Rep #: [id number] : 1965 M 52 From: Fouzia Brenner MD PCP: Jessica Mendoza DO Status: REG CLI Study: Pelvis without IV Contrast Date of Exam: 11/07/17 Exam# [id number] Ordering Dr: Addison Ken MD STUDY: CT [...] CC: Addison Ken MD; Jessica Mendoza DO Repair Department Manager: Signed Observed: 10/12/2017 Status: F Source: [place] CULTURE, DEEP WOUND 1:00 PM [facility] REPOSITORY Comments: RIGHT ISCHIAL ULCER Gram Stain [...] <=0.5 S (NF) indicates non-formulary drug at [facility]. Approval by Infectious Disease Specialist required before non-formulary drugs may be ordered and/or dispensed. * CLSI guidelines does not recommend testing of cephalosporins. This interpretation is deduced from Beta-lactam/penicillin results. Cult, Anaerobic No anaerobic bacteria isolated. Performed By: #### M100.1500 #### [facility] [place], [address] Observed: 10/09/2017 Status: F Source: [place] CULTURE, URINE 4:07 PM [facility] REPOSITORY Urine Culture ORGANISM 1: Enterococcus faecalis [place] Count 25,000-50,000 Enterococcus faecalis: REACTION Ampicillin $ [...] Beta-lactam/penicillin results. Performed By: #### M100.0650 #### [facility] [address] [place], [address] Observed: 06/15/2017 Status: F Source: [place] CULTURE, URINE 4:32 PM [facility] REPOSITORY Urine Culture ORGANISM 1: GPC Poss Enterococcus sp [place] Count >100,000 ORGANISM 2: Mixed Gram Positive Organisms [place] Count 11,000-25,000 MIX CULTURE Mixed contaminants. Submit a new specimen if indicated. Performed By: #### M100.0650 #### [facility] [address] [place], [address] ALLERGIES ALLERGIES DATE TYPE / CODE NAME / CODE REACTION SEVERITY SOURCE 11/11/2017 Drug Penicillins Hives Unknown [place] Allergy/[id number](S /[id number] [facility] NOM[facility] CT) (RXNORM) Hospital Repository 11/11/2017 Drug linezolid/F Hives Unknown [place] Allergy/782778262(S [id number](R [facility] NOMED CT) XNORM) Hospital Repository 11/11/2017 Miscellaneous all tapes blisters Unknown [place] Allergy/486268244(S [facility] NOMED CT) Hospital Repository ENCOUNTERS ENCOUNTERS ADMIT/DISCHARGE ACCOUNT NUMBER ADMITTING ENCOUNTER LOCATION SOURCE CLASS 04/19/2018 [id number] Ambulatory BMSBuilding: [place] BMS.CF.[facility] Repository 04/19/2018 [id number] Ambulatory [facility] ding: Repository 03/29/2018 [id number] Ambulatory BMSBuilding: [place] BMS.CF.[facility] Repository 03/29/2018/04/12/20 [id number] Ambulatory [address] ding: Repository 03/26/2018 [id number] [facility]ulatory [facility] 03/08/2018 [id number] Ambulatory BMSBuilding: [place] BMS.CF.[facility] Repository 03/08/2018/03/12/20 [id number] Ambulatory [place] [address] [facility] Hospital ding: Repository 02/22/2018 [id number] Ambulatory BMSBuilding: [place] BMS.CF.[facility] Repository 02/08/2018 [id number] Ambulatory BMSBuilding: [place] BMS.CF[facility] Repository 02/08/2018/02/11/20 [id number] Ambulatory [place] [address] [facility] Hospital ding:WC Repository 02/02/2018 [id number] Ambulatory BMSBuilding: [place] BMS.CF.[facility] Repository 01/21/2018 [id number] [facility] 01/18/2018 [id number] Ambulatory BMSBuilding: [place] BMS.CF[facility] Repository 12/28/2017 [id number] Ambulatory BMSBuilding: [place] BMS.CF[facility] Repository 12/28/2017/01/11/20 [id number] Ambulatory [place] Hospital ding:HHLAB Repository 12/28/2017/01/11/20 [id number] Ambulatory [place] Hospital ding: Repository 12/11/2017/01/27/20 [id number] Ambulatory BBuilding:PH [place] [address] [place] [address] Repository 12/07/2017/12/12/19 [id number] Ambulatory [place] [address] [place] [address] Hospital ding:LAB Repository 11/30/2017/12/12/19 [id number] Ambulatory [place] [address] [place] [address] Hospital ding: Repository 11/30/2017 [id number] Ambulatory BMSBuilding: [place] [facility]MS[facility] Repository 11/29/2017 [id number] [facility] Repository 11/17/2017/11/19/19 [id number] Ambulatory [place] [address] [place] [address] Hospital ding:SDCRoo Repository : MS325 11/17/2017 [id number] Ambulatory BMSBuilding: [place] BMS.CF.[facility] Repository 11/16/2017 [id number] Ambulatory BMSBuilding: [place] BMS.CF.[facility] Repository 11/16/2017 [id number] Ambulatory BMSBuilding: [place] [facility] Hospital Repository 11/10/2017 [id number] [facility] ding[facility]WC Repository 11/07/2017 [id number] [facility] ding:CT Repository 10/26/2017/11/11/19 [id number] Ambulatory [place] ding:WC Repository 10/26/2017 [id number] Ambulatory BMSBuilding: [place] BMS.CF.[facility] Repository 10/12/2017 [id number] Ambulatory BMSBuilding: [place] BMS.CF[facility] Repository 10/09/2017 [id number] [facility] Repository 09/14/2017/10/11/19 [id number] Ambulatory [place] ding:WC Repository 08/17/2017/09/11/19 [id number] Ambulatory [place] ding:WC Repository 08/17/2017 [id number] Ambulatory BMSBuilding: [place] BMS.CF[facility] Repository 07/27/2017/08/11/19 [id number] Ambulatory [place] ding:WC Repository 07/27/2017 [id number] Ambulatory BMSBuilding: [place] BMS.CF[facility] Repository 07/06/2017/07/12/19 [id number] Ambulatory [place] Hospital ding:WC Repository 07/06/2017 [id number] Ambulatory BMSBuilding: [place] BMS.CF[facility] Repository 06/15/2017 [id number] Ambulatory [facility] ding:MTLAB Repository 06/08/2017/06/10/19 [id number] Ambulatory [place] [address] [place] [address] Hospital ding:WC Repository 06/08/2017 [id number] Ambulatory BMSBuilding: [place] BMS.CF.[facility] Repository 05/25/2017 [id number] Ambulatory BMSBuilding: [place] BMS.CF[facility] Repository PAYERS PAYERS ENCOUNTER GUARANTOR PAYER SUBSCRIBER SOURCE 04/19/2018 ZORAIDA Carney Primary TOVA D [place] [id number] Insurance:ANTHEMPolic TRAPPDOB: Community CHRISTOPHER y Number: [id number] [id number] Repository [address]Qhd: (330) Date:6888-91-64SY [phone] () [address] [place] [address]TF: 04/19/2018 Secondary ZORAIDA E [place] Insurance:MEDICARE TRAPPDOB: Community PART A [facility] [id number] Hospital Number: Repository [id number] Date:2017-10-12 04/19/2018 Tertiary NOT GIVENUNK [place] Insurance:SELF PAY [facility] Hospital Number: Effective Repository Date:2018-04-19 04/19/2018 ZORAIDA E Primary TOVA D [place] [id number] Insurance:ANTHEMPolic TRAPPDOB: Community CHRISTOPHER y Number: [id number] [id number] Repository [address]Fpr: (330) Date:5951-26-60FG [phone] () [address] [place] [address] 05[address]SU: 04/19/2018 Secondary ZORAIDA E [place] Insurance:MEDICARE TRAPPDOB: Community PART A olic [id number] Hospital Number: Repository [id number] Date:2017-10-12 04/19/2018 Tertiary NOT GIVENUNK [place] Insurance:SELF PAY [facility] Number: Effective Repository Date:2018-04-13 03/29/2018 ZORAIDA E Primary TOVA D [place] [id number] Insurance:ANTHEMPolic TRAPPDOB: Community CHRISTOPHER y Number: [id number] [place] [id number] Repository [address]Soa: (330) Date:2163-69-68MY [phone] () [address] [place] [address] [place] [address]LW: 03/29/2018 Secondary ZORAIDA E [place] Insurance:MEDICARE TRAPPDOB: Community PART A BPolicy [id number] Hospital Number: Repository [id number] Date:2017-10-12 03/29/2018 Tertiary NOT GIVENUNK [place] Insurance:SELF PAY [facility] Number: Effective Repository Date:2018-03-29 03/29/2018 ZORAIDA E Primary TOVA D [place] [id number] Insurance:ANTHEMPolic TRAPPDOB: Community CHRISTOPHER y Number: [id number], [place] [id number] Repository [address]Tzi: (330) Date:0204-65-49GM [phone] () [address] [place] [address] 12723UK: 03/29/2018 Secondary ZORAIDA E [place] Insurance:MEDICARE TRAPPDOB: Community PART A BPolicy [id number] Hospital Number: Repository [id number] Date:2017-10-12 03/29/2018 Tertiary NOT GIVENUNK [place] Insurance:SELF PAY [facility] Number: Effective Repository Date:2018-03-13 03/26/2018 ZORAIDA E Primary TOVA D [place] [id number] Insurance:ANTHEMPolic TRAPPDOB: Community CHRISTOPHER y Number: [id number] [place] [id number] Repository [address]Kyi: (330) Date:9147-73-42MR [phone] () [address] [place] [address] 30357ZI: 03/26/2018 Secondary ZORAIDA E [place] Insurance:MEDICARE TRAPPDOB: Community PART A olicy [id number] Hospital Number: Repository [id number] Date:2018-03-26 03/26/2018 Tertiary NOT GIVENUNK [place] Insurance:SELF PAY [facility] Number: Effective Repository Date:2018-03-26 03/08/2018 ZORAIDA E Primary TOVA D [place] [id number] Insurance:ANTHEMPolic TRAPPDOB: Community CHRISTOPHER y Number: [id number] [place] [id number] Repository [address]Edt: (330) Date:1496-90-49FW [phone] () [place], [place] [address]TS: 03/08/2018 Secondary ZORAIDA E [place] Insurance:MEDICARE TRAPPDOB: Community PART A BPolicy [id number] Hospital Number: Repository [id number] Date:2017-10-12 03/08/2018 Tertiary NOT GIVENUNK [place] Insurance:SELF PAY [facility] Number: Effective Repository Date:2018-03-08 03/08/2018 ZORAIDA E Primary TOVA D [place] [id number] Insurance:ANTHEMPolic TRAPPDOB: Community CHRISTOPHER y Number: [id number] [place], [place] [id number] Repository [address]Vdr: (330) Date:6084-71-39HK [phone] () [place], [place] [address]KU: 03/08/2018 Secondary ZORAIDA E [place] Insurance:MEDICARE TRAPPDOB: Community PART A olicy [id number] Hospital Number: Repository [id number] Date:2017-10-12 03/08/2018 Tertiary NOT GIVENUNK [place] Insurance:SELF PAY [facility] Number: Effective Repository Date:2018-02-11 02/22/2018 ZORAIDA E Primary TOVA D [place] [id number] Insurance:ANTHEMPolic TRAPPDOB: Community CHRISTOPHER y Number: [id number] [place], [place] [id number] Repository [address]Ybk: (330) Date:5976-18-66AP [phone] () [place], [place] [address]FG: 02/22/2018 Secondary ZORAIDA E [place] Insurance:MEDICARE TRAPPDOB: Community PART A olicy [id number] Hospital Number: Repository [id number] Date:2017-10-12 02/22/2018 Tertiary NOT GIVENUNK [place] Insurance:SELF PAY [facility] [facility] Number: Effective Repository Date:2018-02-22 02/08/2018 ZORAIDA E Primary TOVA D Barbi [id number] Insurance:ANTHEMPolic TRAPPDOB: Community CHRISTOPHER y Number: [id number] [place] [id number] Repository 94779Cjo: (330) Date:1355-82-03[phone] () 542624ZTGXLBW, [place] [address]RP: 02/08/2018 Secondary ZORAIDA E Barbi Insurance:MEDICARE TRAPPDOB: Community PART A BPolicy [id number] Hospital Number: Repository [id number] Date:2017-10-12 02/08/2018 Tertiary NOT GIVENUNK [place] Insurance:SELF PAY [facility] Number: Effective Repository Date:2018-02-08 02/08/2018 ZORAIDA E Primary TOVA D Barbi [id number] Insurance:ANTHEMPolic TRAPPDOB: Community CHRISTOPHER y Number: [id number] [place], [place] [id number] Repository 41200Tpr: (330) Date:2420-17-65FW [phone] () 506627PMUQMEG, [place] [address]AT: 02/08/2018 Secondary ZORAIDA E Barbi Insurance:MEDICARE TRAPPDOB: Community PART A olicy [id number] Hospital Number: Repository [id number] Date:2017-10-12 02/08/2018 Tertiary NOT GIVENUNK [place] Insurance:SELF PAY [facility] Number: Effective Repository Date:2018-01-11 02/02/2018 ZORAIDA E Primary TOVA D [place] [id number] Insurance:ANTHEMPolic TRAPPDOB: Community CHRISTOPHER y Number: [id number] [place] [id number] Repository 35277Bec: (330) Date:8902-96-45NP [phone] () 657628UILNJXH, [place] [address]RV: 02/02/2018 Secondary ZORAIDA E Barbi Insurance:MEDICARE TRAPPDOB: Community PART A olicy [id number] Hospital Number: Repository [id number] Date:2017-10-12 02/02/2018 Tertiary NOT GIVENUNK [place] Insurance:SELF PAY [facility] Number: Effective Repository Date:2018-02-02 01/21/2018 ZORAIDA E Primary TOVA D [place] [id number] Insurance:ANTHEMPolic TRAPPDOB: Community CHRISTOPHER y Number: [id number] [place], [place] [id number] Repository 77144Vxx: (330) Date:9923-63-55[phone] () 592128ODGZNEF, [place] [address]LS: 01/21/2018 Secondary ZORAIDA E [place] Insurance:MEDICARE TRAPPDOB: Community PART A BPolicy [id number] Hospital Number: Repository [id number] Date:2017-11-23 01/21/2018 Tertiary NOT GIVENUNK [place] Insurance:SELF PAY [facility] Number: Effective Repository Date:2018-01-11 01/18/2018 ZORAIDA E Primary TOVA D [place] [id number] Insurance:ANTHEMPolic TRAPPDOB: Community CHRISTOPHER y Number: [id number] [place], [place] [id number] Repository 02022Mmh: (330) Date:1485-55-73HZ [phone] () 404698ZLYJTDR, [place] [address]XS: 01/18/2018 Secondary ZORAIDA E [place] Insurance:MEDICARE TRAPPDOB: Community PART A BPolicy [id number] Hospital Number: Repository [id number] Date:2017-10-12 01/18/2018 Tertiary NOT GIVENUNK [place] Insurance:SELF PAY [facility] Number: Effective Repository Date:2018-01-18 12/28/2017 ZORAIDA E Primary TOVA D [place] [id number] Insurance:ANTHEMPolic TRAPPDOB: Community CHRISTOPHER y Number: [id number] [place] [id number] Repository 12883Ich: (330) Date:6416-56-22AA [phone] () 018996DQYGCLJ, [place] [address]HV: 12/28/2017 Secondary ZORAIDA E [place] Insurance:MEDICARE TRAPPDOB: Community PART A BPolicy [id number] Hospital Number: Repository [id number] Date:2017-10-12 12/28/2017 Tertiary NOT GIVENUNK [place] Insurance:SELF PAY [facility] Number: Effective Repository Date:2017-12-28 12/28/2017 ZORAIDA E Primary TOVA D [place] [id number] Insurance:ANTHEMPolic TRAPPDOB: [facility] y Number: [id number] [place] [id number] Repository 08545Snr: (330) Date:7070-70-24HW [phone] () [id number] [place] [address] 39[address]PD: 12/28/2017 Secondary ZORAIDA E [place] Insurance:MEDICARE TRAPPDOB: Community PART A olic [id number] Hospital Number: Repository [id number] Date:2017-11-23 12/28/2017 Tertiary NOT GIVENUNK [place] Insurance:SELF PAY [facility] Number: Effective Repository Date:2017-12-12 12/28/2017 ZORAIDA E Primary TOVA D Barbi [id number] Insurance:ANTHEMPolic TRAPPDOB: [facility] y Number: [id number] [place], [place] [id number] Repository 10523Adj: (330) Date:3624-22-22RS [phone] () [address]VWLCIHI[address] [place] [address] 88[address]XC: 12/28/2017 Secondary ZORAIDA E [place] Insurance:MEDICARE TRAPPDOB: Community PART A olic [id number] Hospital Number: Repository [id number] Date:2017-10-12 12/28/2017 Tertiary NOT GIVENUNK [place] Insurance:SELF PAY [facility] Number: Effective Repository Date:2017-12-12 12/11/2017 ZORAIDA E Primary [facility]OVA [facility] TRAPPDOB: Insurance:ANTHEM TRAPPDOB: [facility] [place] [id number] [facility] [id number] Repository [address] Number: [place] [address]~TETRAPP@ [id number] 652[address]Iun: (330) Latoya: Date:2017-12-03 [id number] (HP)Tel: (000) (HP)Tel: (999) Name:[phone] (WP) [phone] (WP) 165029Ltqxcop, [place] [address]UO: 12/11/2017 Secondary ZORAIDA E [facility] Insurance:MEDICARE TRAPPDOB: Foundation PART BPolicy Number: [id number] Repository [id number] [address] [place] [address] Date:2017-12-03 - [place], [place] 9889-50-92Strl 28823Oru: (330) Name:[facility] [phone] Administrators LLCPO (HP)Tel: (000) [address]Jzhjjtkyy, [phone] (WP) [place] [address]GZ: 12/07/2017 ZORAIDA E Primary TOVA D [place] [id number] Insurance:ANTHEMPolic TRAPPDOB: [facility] y Number: [id number] [place] [id number] Repository 39711Yjy: (330) Date:2017-66-94ER [phone] () 128006FIXZGNR, [place] [address]QQ: 12/07/2017 Secondary ZORAIDA E [place] Insurance:MEDICARE TRAPPDOB: Community PART A olicy [id number] Hospital Number: Repository [id number] Date:2017-11-23 12/07/2017 Tertiary NOT GIVENUNK [place] Insurance:SELF PAY [facility] Number: Effective Repository Date:2017-11-23 11/30/2017 ZORAIDA E Primary TOVA D [place] [id number] Insurance:ANTHEMPolic TRAPPDOB: [facility] y Number: [id number] [place], [place] [id number] Repository 37201Ixe: (330) Date:3670-35-84UA [phone] () 076499FLRXWHF, [place] [address]WN: 11/30/2017 Secondary ZORAIDA E [place] Insurance:MEDICARE TRAPPDOB: Community PART A BPolicy [id number] Hospital Number: Repository [id number] Date:2017-10-12 11/30/2017 Tertiary NOT GIVENUNK [place] Insurance:SELF PAY [facility] Number: Effective Repository Date:2017-11-11 11/30/2017 ZORAIDA E Primary TOVA D [place] [id number] Insurance:ANTHEMPolic TRAPPDOB: Community CHRISTOPHER y Number: [id number] [place], [place] [id number] Repository 90423Rib: (330) Date:7671-04-51ZX [phone] () 543076GEZNUOH [place] [address]FV: 11/30/2017 Secondary ZORAIDA E [place] Insurance:MEDICARE TRAPPDOB: Community PART A olicy [id number] Hospital Number: Repository [id number] Date:2017-10-12 11/30/2017 Tertiary NOT GIVENUNK [place] Insurance:SELF PAY [facility] Number: Effective Repository Date:2017-11-30 11/29/2017 ZORAIDA E Primary TOVA D [place] [id number] Insurance:ANTHEMPolic TRAPPDOB: Community CHRISTOPHER y Number: [id number] [place], [place] [id number] Repository 71095Lpi: (330) Date:8772-82-96CO [phone] () 688755NOCKOYJ, [place] [address]SM: 11/29/2017 Secondary ZORAIDA E [place] Insurance:MEDICARE TRAPPDOB: Community PART A olicy [id number] Hospital Number: Repository [id number] Date:2017-11-29 11/29/2017 Tertiary NOT GIVENUNK [place] Insurance:SELF PAY [facility] Number: Effective Repository Date:2017-11-29 11/17/2017 ZORAIDA E Primary TOVA D [place] [id number] Insurance:ANTHEMPolic TRAPPDOB: Community CHRISTOPHER y Number: [id number] [place], [place] [id number] Repository 87136Aov: (330) Date:5539-32-37AN [phone] () [address] [place] [address] ID [address]IT: 11/17/2017 Secondary ZORAIDA E [place] Insurance:MEDICARE TRAPPDOB: Community PART A BPolicy [id number] Hospital Number: Repository [id number] Date:2017-11-04 11/17/2017 Tertiary NOT GIVENUNK [place] Insurance:SELF PAY [facility] Number: Effective Repository Date:2017-11-04 11/17/2017 ZORAIDA E Primary TOVA D [place] [id number] Insurance:ANTHEMPolic TRAPPDOB: Community CHRISTOPHER y Number: [id number] [place], [place] [id number] Repository 47640Qpd: (330) Date:6551-32-39LN [phone] () [address] [place] [address] ID [address]ES: 11/17/2017 Secondary ZORAIDA E [place] Insurance:MEDICARE TRAPPDOB: Community PART A BPolicy [id number] Hospital Number: Repository [id number] Date:2017-11-04 11/17/2017 Tertiary NOT GIVENUNK [place] Insurance:SELF PAY [facility] Number: Effective Repository Date:2017-11-17 11/16/2017 ZORAIDA E Primary TOVA D [place] [id number] Insurance:ANTHEMPolic TRAPPDOB: Community CHRISTOPHER y Number: [id number] [place], [place] [id number] Repository 42253Enz: (330) Date:8785-81-00MI [phone] () [address] [place] [address] ID 56[address]HS: 11/16/2017 Secondary ZORAIDA E [place] Insurance:MEDICARE TRAPPDOB: Community PART A BPolicy [id number] Hospital Number: Repository [id number] Date:2017-10-12 11/16/2017 Tertiary NOT GIVENUNK [place] Insurance:SELF PAY [facility] Number: Effective Repository Date:2017-11-16 11/16/2017 ZORAIDA E Primary TOVA D [place] [id number] Insurance:ANTHEMPolic TRAPPDOB: Community CHRISTOPHER y Number: [id number] [place], [place] [id number] Repository 02186Ymv: (330) Date:8917-98-69RU [phone] () ROHITH HORN [address]WC: 11/16/2017 Secondary ZORAIDA E [place] Insurance:MEDICARE TRAPPDOB: Community PART A BPolicy [id number] Hospital Number: Repository [id number] Date:2017-10-12 11/16/2017 Tertiary NOT GIVENUNK [place] Insurance:SELF PAY [facility] Number: Effective Repository Date:2017-11-16 11/10/2017 ZORAIDA E Primary TOVA D [place] [id number] Insurance:ANTHEMPolic TRAPPDOB: Community CHRISTOPHER y Number: [id number] [place], [place] [id number] Repository 45455Oxd: (330) Date:6283-64-71CA [phone] () 735340LMLDNXB, [place] [address]BF: 11/10/2017 Secondary ZORAIDA E [place] Insurance:MEDICARE TRAPPDOB: Community PART A BPolicy [id number] Hospital Number: Repository [id number] Date:2007-01-11 11/10/2017 Tertiary NOT GIVENUNK [place] Insurance:SELF PAY [facility] Number: Effective Repository Date:2017-10-31 11/07/2017 ZORAIDA E Primary TOVA D [place] [id number] Insurance:ANTHEMPolic TRAPPDOB: Community CHRISTOPHER y Number: [id number] [place], [place] [id number] Repository 77852Edl: (330) Date:4702-91-29LV [phone] () 219956QHRMCUB, [place] [address]RT: 11/07/2017 Secondary ZORAIDA E [place] Insurance:MEDICARE TRAPPDOB: Community PART A olicy [id number] Hospital Number: Repository [id number] Date:2017-11-04 11/07/2017 Tertiary NOT GIVENUNK [place] Insurance:SELF PAY [facility] Number: Effective Repository Date:2017-11-04 10/26/2017 ZORAIDA E Primary TOVA D [place] [id number] Insurance:ANTHEMPolic TRAPPDOB: Community CHRISTOPHER y Number: [id number] [place], [place] [id number] Repository 95571Kna: (330) Date:4076-20-69NX [phone] () 981780PGFWFNF, [place] [address]BL: 10/26/2017 Secondary ZORAIDA E [place] Insurance:MEDICARE TRAPPDOB: Community PART A [facility] [id number] Hospital Number: Repository [id number] Date:2017-10-12 10/26/2017 Tertiary NOT GIVENUNK [place] Insurance:SELF PAY [facility] Number: Effective Repository Date:2017-10-12 10/26/2017 ZORAIDA E Primary TOVA D [place] [id number] Insurance:ANTHEMPolic TRAPPDOB: Community CHRISTOPHER y Number: [id number] [place], [place] [id number] Repository 03085Esp: (330) Date:7900-73-66CU [phone] () 067020WGABSZB, [place] [address]HC: 10/26/2017 Secondary ZORAIDA E [place] Insurance:MEDICARE TRAPPDOB: Community PART A [facility] [id number] Hospital Number: Repository [id number] Date:2017-10-12 10/26/2017 Tertiary NOT GIVENUNK [place] Insurance:SELF PAY [facility] Number: Effective Repository Date:2017-10-26 10/12/2017 ZORAIDA E Primary TOVA D [place] [id number] Insurance:ANTHEMPolic TRAPPDOB: Community CHRISTOPHER y Number: [id number] [place], [place] [id number] Repository 29782Dth: (330) Date:0334-22-48LN [phone] () 452889HVBDKHG, [place] [address]ZS: 10/12/2017 Secondary ZORAIDA E [place] Insurance:MEDICARE TRAPPDOB: Community PART A [facility] [id number] Hospital Number: Repository [id number] Date:2017-10-12 10/12/2017 Tertiary NOT GIVENUNK [place] Insurance:SELF PAY [facility] Number: Effective Repository Date:2017-10-12 10/09/2017 ZORAIDA E Primary TOVA D [place] [id number] Insurance:ANTHEMPolic TRAPPDOB: Community CHRISTOPHER y Number: [id number] [place], [place] [id number] Repository 33046Rkt: (330) Date:2336-99-77PN [phone] () [address] [place] [address]HC: 10/09/2017 Secondary ZORAIDA E [place] Insurance:MEDICARE TRAPPDOB: Community PART A olicy [id number] Hospital Number: Repository [id number] Date:2017-10-09 10/09/2017 Tertiary NOT GIVENUNK [place] Insurance:SELF PAY [facility] Number: Effective Repository Date:2017-10-09 09/14/2017 ZORAIDA E Primary TOVA D [place] [id number] Insurance:ANTHEMPolic TRAPPDOB: Community CHRISTOPHER y Number: [id number] [place], [place] [id number] Repository 64851Yro: (330) Date:7880-28-00OA [phone] () [address] [place] [address] 44[address]NI: 09/14/2017 Secondary ZORAIDA E [place] Insurance:MEDICARE TRAPPDOB: Community PART A [facility] [id number] Hospital Number: Repository [id number] Date:2007-01-11 09/14/2017 Tertiary NOT GIVENUNK [place] Insurance:SELF PAY [facility] Number: Effective Repository Date:2017-09-11 08/17/2017 MAAME E [id number] Primary TOVA D [place] CHRISTOPHER Insurance:ANTHEMPolic TRAPPDOB: [place] y Number: [id number] Hospital 33272Wsh: (330) [id number] Repository [phone] (HP) Date:5317-99-45OZ [address] [place] [address] 03148GQ: 08/17/2017 Secondary MAAME E TRAPPDOB: [place] Insurance:MEDICARE [id number] Community PART A [facility] Hospital Number: Repository [id number] Date:2007-01-11 08/17/2017 Tertiary NOT GIVENUNK [place] Insurance:SELF PAY [facility] Number: Effective Repository Date:2017-08-11 08/17/2017 ZORAIDA E Primary TOVA D [place] [id number] Insurance:ANTHEMPolic TRAPPDOB: Community CHRISTOPHER y Number: [id number] [place], [place] [id number] Repository 33502Avi: (330) Date:9526-29-64KT [phone] () [address] [place] [address] ID 777[address]JD: 08/17/2017 Secondary ZROAIDA E [place] Insurance:MEDICARE TRAPPDOB: Community PART A [facility] [id number] Hospital Number: Repository [id number] Date:2007-01-11 08/17/2017 Tertiary NOT GIVENUNK [place] Insurance:SELF PAY [facility] Number: Effective Repository Date:2017-08-17 07/27/2017 MAAME E [id number] Primary TOVA D [place] CHRISTOPHER Insurance:ANTHEMPolic TRAPPDOB: [place] y Number: [id number] Hospital 37497Qxh: 330) [id number] Repository [phone] () Date:3055-25-25YB [address]391XALPDAI, [place] [address]AC: 07/27/2017 Secondary MAAME E TRAPPDOB: [place] Insurance:MEDICARE [id number] Community PART A [facility] Hospital Number: Repository [id number] Date:2007-01-11 07/27/2017 Tertiary NOT GIVENUNK [place] Insurance:SELF PAY [facility] Number: Effective Repository Date:2017-07-12 07/27/2017 ZORAIDA E Primary TOVA D [place] [id number] Insurance:ANTHEMPolic TRAPPDOB: Community CHRISTOPHER y Number: [id number] [place], [place] [id number] Repository 53681Kcn: (330) Date:4337-56-58WL [phone] () [address] [place] [address] 36986DG: 07/27/2017 Secondary ZORAIDA E [place] Insurance:MEDICARE TRAPPDOB: Community PART A olic [id number] Hospital Number: Repository [id number] Date:2007-01-11 07/27/2017 Tertiary NOT GIVENUNK [place] Insurance:SELF PAY [facility] Number: Effective Repository Date:2017-07-27 07/06/2017 MAAME E [id number] Primary TOVA D [place] CHRISTOPHER Insurance:ANTHEMPolic TRAPPDOB: [place] y Number: [id number] Hospital 49152Nwx: (330) [id number] Repository [phone] () Date:6538-25-45ST [address] [place] [address] 41546WG: 07/06/2017 Secondary MAAME E TRAPPDOB: [place] Insurance:MEDICARE [id number] Community PART A [facility] Hospital Number: Repository [id number] Date:2007-01-11 07/06/2017 Tertiary NOT GIVENUNK [place] Insurance:SELF PAY [facility] Number: Effective Repository Date:2017-06-11 07/06/2017 MAAME E [id number] Primary TOVA D [place] CHRISTOPHER Insurance:ANTHEMPolic TRAPPDOB: [place] y Number: [id number] Hospital 73626Smb: (330 [id number] Repository [phone] () Date:2193-05-96HH [address] [place] [address] 64608DG: 07/06/2017 Secondary MAAME E TRAPPDOB: [place] Insurance:MEDICARE [id number] Community PART A [facility] Hospital Number: Repository [id number] Date:2007-01-11 07/06/2017 Tertiary NOT GIVENUNK [place] Insurance:SELF PAY [facility] Number: Effective Repository Date:2017-07-06 06/15/2017 MAAME E [id number] Primary TOVA D [place] CHRISTOPHER Insurance:ANTHEMPolic TRAPPDOB: [place] y Number: [id number] Hospital 03174Xik: 330 [id number] Repository [phone] () Date:8643-85-79GX [address]33IXBGRHK, [place] [address]LX: 06/15/2017 Secondary MAAME E TRAPPDOB: [place] Insurance:MEDICARE [id number] Community PART A [facility] Hospital Number: Repository [id number] Date:2017-06-15 06/15/2017 Tertiary NOT GIVENUNK [place] Insurance:SELF PAY [facility] Number: Effective Repository Date:2017-06-15 06/08/2017 MAAME E [id number] Primary TOVA D [place] CHRISTOPHER Insurance:ANTHEMPolic TRAPPDOB: [facility] myron BRYANT y Number: [id number] Hospital 63977Xhy: 330 [id number] Repository [phone] () Date:4249-35-03EM [address]179YQZIRCD, [place] [address]PI: 06/08/2017 Secondary MAAME E TRAPPDOB: [place] Insurance:MEDICARE [id number] Community PART A [facility] Hospital Number: Repository [id number] Date:2007-01-11 06/08/2017 Tertiary NOT GIVENUNK [place] Insurance:SELF PAY [facility] Number: Effective Repository Date:2017-05-14 06/08/2017 MAAME E [id number] Primary TOVA D [place] CHRISTOPHER Insurance:ANTHEMPolic [facility]APPDOB[facility] [place] y Number: [id number] Hospital 30096Raj: (330 [id number] Repository [phone] (HP) Date:1804-19-15TN [address]40JDSBAQX, [place] [address]LN: 06/08/2017 Secondary MAAME E TRAPPDOB: [place] Insurance:MEDICARE [id number] Community PART A [facility] Hospital Number: Repository [id number] Date:2007-01-11 06/08/2017 Tertiary NOT GIVENUNK [place] Insurance:SELF PAY [facility] Number: Effective Repository Date:2017-06-08 05/25/2017 MAAME Carney [id number] Primary TOVA Tanja WHITE Insurance:ANTHEMPolic TRAPPDOB: [facility] Number: [id number] Hospital 09820Kdn: (995) [id number] Repository [phone] () Date:2681-34-97XT [address]BRBAYPD, [place] [address]YD: 05/25/2017 Secondary MAAME Sophy TRAPPDOB: [place] Insurance:MEDICARE [id number] [facility] PART A [facility] Hospital Number: Repository [id number] Date:2007-01-11 05/25/2017 Tertiary NOT GIVENUNK [place] Insurance:SELF PAY [facility] Effective Repository Date:2017-05-25
== END 2018-04-12 23:59 ==
LOC: WC 10:15
PROVIDERS: Family Provider Preventive Medicine Occupational Medicine; PCP Preventive Medicine Occupational Medicine; Visit Provider Surgery
DX: L89.214 Pressure ulcer of right hip, stage 4 (principal); G82.20 Paraplegia, unspecified
CPT/HCPCS: 11043; 11046; 87070; 87075; 87077; 87186; 87205

== ENCOUNTER 2018-04-19 10:28 | Outpatient (RCR) | payer BC, MEDICARE, SELFPAY ==
[2018-04-13 00:46] VITALS: BP 105/83; PULSE 97; RESP 16; TEMP 35.7
[2018-04-19 10:43] VITALS: BP 146/75; PULSE 94; RESP 18; TEMP 35.9
--- NOTE | 2018-04-20 00:21 | PN.PCM_ITS ---
Type of Wound Date of Service: 04/19/18 Chief Complaint: Right ischial pressure sore, Stage IV. History of Wound: Surgery 11/17/17 - Excision right ischial pressure sore, Stage IV, with partial ostectomy for osteomyelitis. Wound care - Silver. Operative culture, bone and soft tissue - Enterobacter cloacae. Preop culture showed Staphylococcus haemolyticus and Aerococcus viridans. He was discharged on Vancomycin, and Levaquin, and Diflucan. He has finished the Vancomycin and the Levaquin. Another wound culture from 01/11/18 showed Staphylococcus lentus and Granulicatella adiacens. He was started on Doxycycline and stopped them because of GI issues. The undermining in the ulcer is stable with increased moisture in the ulcer. Patient states he had some family issues and had spent more time in his wheelchair. Another wound culture was obtained on 03/29/18. It showed Citrobacter freundii, Enterococcus faecalis, Streptococcus mitis/orallis, and Corynebacterium minutissimum. He was started on Augmentin and Levaquin. He states he has stopped the Augmentin because of diarrhea. Pathology - negative for osteomyelitis. Prealbumin from 11/18/17 was 21.3. Encourage nutritional supplementation with protein to help the healing process. CT Pelvis was done on 11/07/17. It showed right buttocks and upper posterior thigh decubitus ulcer with granulation tissue and air pocket extending to the ischial tuberosity appear larger when compared to the previous study. There is osteosclerosis in the ischial tuberosity with irregular periosteal bone formation suggesting chronic osteomyelitis. Today he denies fever. His appetite is good. It was noted according to his insurance carrier that he didn't qualify for HBO treatments at this time. Progress of Wound: Minimal improvement with stable undermining but increased moisture in the ulcer. - Physical Exam Vital Signs Temp Pulse Resp BP 96.6 F L 94 18 146/75 H 04/19/18 10:43 04/19/18 10:43 04/19/18 10:43 04/19/18 10:43 Wound Measurements and Assessment WC - Nurse 1 - General Ulcer Measurement Start: 04/19/18 10:43 Freq: Status: Active Protocol: Activity Type Activity Date Activity User E-Sign Co-Sign Detail Recorded Client Recorded Date Recorded By Document 04/19/18 10:43 DL [id number] 04/19/18 10:55 DL 04/19/18 10:43 Wound Center Nurse 1 [Ulcer Assessment] #1 RT ISCHIUM- POST OP -Combined with other wound No -Current Size (cm) - Length 8.4 -Current Size (cm) - Width 4.6 -Current Size (cm) - Depth 4.0 -Total Square Cm 38.64 -Photo Taken Yes -Epithelialization None Present -Tunneling No -Undermining/Tunneling No -Circular Undermining No -Exudate Amt Large (67-100%) -Exudate Type Serosanguineous -Wound Margin Flat & Intact -Granulation Amt Small (1-33%) -Granulation Quality Red -Slough/Fibrin Yes -Necrosis Amt Medium (34-66%) -Necrotic Tissue Type Adherent Slough -Structure Exposed N/A -Texture (Elizabeth-wound Skin Appearance) Assessed -Moisture (Elizabeth-wound Skin Appearance Assessed ) Dry/Scaly -Color (Elizabeth-wound Skin Appearance) Assessed -Temperature (Elizabeth-wound Skin No Abnormality Appearance) (Pt Warm) -Tenderness on Palpation (Elizabeth-wound No Skin Appearance) -Ulcer Cleansing Wound Cleanser -Foul Odor after Cleansing No -Anesthetic Used 4% Lidocaine Solution [Edema Assessment] -Lower Limb Edema Present NA WC - Nurse 2 - General Ulcer CM Notes Start: 04/19/18 10:43 Freq: Status: Active Protocol: Activity Type Activity Date Activity User E-Sign Co-Sign Detail Recorded Client Recorded Date Recorded By Document 04/19/18 11:07 LIANE [id number] 04/19/18 11:09 04/19/18 11:07 Wound Center Nurse 2 [Procedure/Treatment] #1 RT ISCHIUM- POST OP -Time 11:07 -Correct Patient Yes -Correct Side, Site, Position Yes -Correct Procedure Yes -Procedure Performed Yes -Type of Procedure Debridement -Clinical Debridement Muscle -Post Debridement Size (cm) - Length 8.5 -Post Debridement Size (cm) - Width 4.6 -Post Debridement Size (cm) - Depth 4.0 -Total Square Cm 39.10 -Wound/Ulcer Outcome Not Healed -Ulcer Cleansing Rinsed/ Irrigated with Saline -Foul Odor after Cleansing No -Bioengineered Tissue No -Bleeding Controlled with Pressure -Offloading No -Treatment Response Procedure Tolerated Well [See Physician Procedure note for Specifics] Pain Scale: 0-10 Numeric [Pain] -Is Patient Pain Free? Yes Debridement Note Post-Debridement Measurements/Treatment WC - Nurse 2 - General Ulcer CM Notes Start: 04/19/18 10:43 Freq: Status: Active Protocol: Activity Type Activity Date Activity User E-Sign Co-Sign Detail Recorded Client Recorded Date Recorded By Document 04/19/18 11:07 [id number] 04/19/18 11:09 04/19/18 11:07 Wound Center Nurse 2 #1 RT ISCHIUM- POST OP -Time 11:07 -Correct Patient Yes -Correct Side, Site, Position Yes -Correct Procedure Yes -Procedure Performed Yes -Type of Procedure Debridement -Clinical Debridement Muscle -Post Debridement Size (cm) - Length 8.5 -Post Debridement Size (cm) - Width 4.6 -Post Debridement Size (cm) - Depth 4.0 -Total Square Cm 39.10 -Wound/Ulcer Outcome Not Healed -Ulcer Cleansing Rinsed/ Irrigated with Saline -Foul Odor after Cleansing No -Bioengineered Tissue No -Bleeding Controlled with Pressure -Offloading No -Treatment Response Procedure Tolerated Well Pain Scale: 0-10 Numeric Is Patient Pain Free? Yes Wound debrided: #1 Right ischial area. Laterality: Right Wound Grade/Stage: IV. Type of Debridement: Excisional debridement Anesthesia Used: 4% Lidocaine Solution Depth: Down to and including healthy tissue, in the subcutaneous layer, to muscle, to bone - bone is palpable but not debrided. Percentage of wound debrided: 100 Instrument Used: 7mm curette Tissue Removed: subcutaneous tissue and muscle. Severity: Fat Layer Exposed - muscle is exposed. bone is palpable but not debrided. Amount of bleeding with debridement: Mild Bleeding Controlled with: Pressure Patient tolerated procedure well Assessment/Plan Assessment: 1. Right ischial pressure sore, stage IV. 2. Paraplegia. 3. History of osteomyelitis. 4. s/p excision right ischial pressure sore, Stage IV, with partial ostectomy for osteomyelitis. Plan: Continue Silver dressing changes with Sorbian Sachet for absorption of drainage. With the increased moisture, will increase the dressing changes to twice a day. The undermining in the ulcer was stable but there was more moisture in the ulcer, so a wound culture was obtained on 03/29/18. It showed C itrobacter freundii, Enterococcus faecalis, Streptococcus mitis/oralis, and Corynebacterium minutissimum. He was started on Augmentin and Levaquin. He stopped the Augmentin because of diarrhea. Will add a Probiotic. If it continues, will need to check for Cdiff. He will continue the Levaquin. A CT Pelvis was done on 11/07/17. It was suspicious for osteomyelitis. Pathology was negative for osteomyelitis. At this time the insurance carrier has denied his HBO treatments. Patient needs to wait 4 months with continued treatments (surgery, wound care, and antibiotics). The CT scan will be scheduled at his next visit in two weeks. If still suspicious for osteomyelitis, will reapply for HBO treatments for chronic refractory osteomyelitis. Prealbumin from 11/18/17 was 21.3. Encourage nutritional supplementation with protein to help the healing process. Because of the increased moisture and presence of some undermining, and the difficulty with po antibiotics, he may need IV antibiotics, additional operative debridement, and the use of the VAC. Before any additional surgery, would proceed with HBO treatments first. Patient states he is still not interested in a muscle flap for wound closure because he doesn't like the idea of 6 weeks bedrest after the surgery. Followup 2 weeks.
== END 2018-05-13 23:59 ==
LOC: WC 10:28
PROVIDERS: Family Provider Preventive Medicine Occupational Medicine; PCP Preventive Medicine Occupational Medicine; Visit Provider Surgery
DX: L89.214 Pressure ulcer of right hip, stage 4 (principal); G82.20 Paraplegia, unspecified

== ENCOUNTER → 2018-05-17 13:05 | Outpatient (CLI) | payer BC, MEDICARE, SELFPAY ==
--- NOTE | 2018-05-17 13:08 | CT_ITS ---
STUDY: CT PELVIS WITHOUT CONTRAST REASON FOR EXAM: Male, 52 years old. Osteomyelitis. RADIATION DOSAGE (If Supplied By Facility): CTDIvol = ( 12.31 ) mGy, DLP = ( 405.76 ) mGycm TECHNIQUE: Transaxial imaging of the pelvis was performed with oral contrast, and without intravenous administration of contrast material. Multiplanar coronal and sagittal images were reformatted. Individualized dose optimization techniques were used for this CT. COMPARISON: CT of the pelvis, November 07, 2017. FINDINGS: Normal urinary bladder. The prostate is minimally enlarged. There are phleboliths in the pelvis. Normal visualized small intestine. Normal visualized colon. Normal appendix There is no pelvic fluid. There is no pelvic mass lesion or lymphadenopathy. Normal visualized pelvic arteries. Normal abdominal wall. There are degenerative changes of the lumbosacral spine and sacroiliac joints. The visualized sacrum and coccyx appear normal. Normal right iliac wing. The left iliac wing is somewhat irregular suggesting a site of prior bone harvesting. Normal bilateral superior and inferior pubic rami. There is marked bony productivity off of both ischial tuberosities, which is unchanged from prior study. There are degenerative changes of the bilateral hips. Again seen is bony irregularity about the right greater trochanter which is unchanged. Again seen is a large decubitus ulcer which extends upward to the right issue tuberosity. Wall the medial aspect of the upper thigh. This appears unchanged. CT/Pelvis without IV Contrast IMPRESSION: Large right-sided decubitus ulcer. The possibility of osteomyelitis in the ischial tuberosity cannot be completely ruled out. Findings however appear unchanged from the previous examination. Electronically Signed: Keron Cha DO at 19:02 EST Tel [phone], Service support ,
== END ==
PROVIDERS: Family Provider Preventive Medicine Occupational Medicine; PCP Preventive Medicine Occupational Medicine; Referring Provider Surgery; Visit Provider Surgery
DX: L89.314 Pressure ulcer of right buttock, stage 4 (principal); M86.9 Osteomyelitis, unspecified
CPT/HCPCS: 72192

== ENCOUNTER 2018-05-31 10:00 | Outpatient (RCR) | payer BC, MEDICARE, SELFPAY ==
[2018-05-17 10:23] VITALS: BP 78/49; PULSE 102; RESP 18; TEMP 36.2
--- NOTE | 2018-05-17 10:41 | PN.PCM_ITS ---
(1) Osteomyelitis of right side of pelvis Status: Chronic Current Visit: Yes Code(s): M86.9 - Osteomyelitis, unspecified (2) Right ischial pressure sore, stage 4 Status: Chronic Current Visit: Yes Code(s): L89.314 - Pressure ulcer of right buttock, stage 4 (3) Paraplegia Status: Chronic Current Visit: Yes Code(s): G82.20 - Paraplegia, unspecified Type of Wound Date of Service: 05/17/18 Chief Complaint: Right ischial pressure sore, Stage IV. History of Wound: Surgery 11/17/17 - Excision right ischial pressure sore, Stage IV, with partial ostectomy for osteomyelitis. Wound care - Silver. Operative culture, bone and soft tissue - Enterobacter cloacae. Preop culture showed Staphylococcus haemolyticus and Aerococcus viridans. He was discharged on Vancomycin, and Levaquin, and Diflucan. He has finished the Vancomycin and the Levaquin. Another wound culture from 01/11/18 showed Staphylococcus lentus and Granulicatella adiacens. He was started on Doxycycline and stopped them because of GI issues. The undermining in the ulcer is stable with some increased moisture in the ulcer today. Patient states he had some family issues and had spent more time in his wheelchair. Pathology - negative for osteomyelitis. Prealbumin from 11/18/17 was 21.3. Encourage nutritional supplementation with protein to help the healing process. CT Pelvis was done on 11/07/17. It showed right buttocks and upper posterior thigh decubitus ulcer with granulation tissue and air pocket extending to the ischial tuberosity appear larger when compared to the previous study. There is osteosclerosis in the ischial tube rosity with irregular periosteal bone formation suggesting chronic osteomyelitis. Today he denies fever. His appetite is good. It was noted according to his insurance carrier that he didn't qualify for HBO treatments at this time. Progress of Wound: Stable. His [id number] who is also his caregiver is concerned that his wound may be infected again due to the amount of drainage he is having. - Physical Exam Vital Signs Temp Pulse Resp BP 97.1 F L 102 H 18 78/49 L 05/17/18 10:23 05/17/18 10:23 05/17/18 10:23 05/17/18 10:23 General: Alert, Oriented x3, Cooperative HEENT: Atraumatic Oral: Moist Mucosa Lungs: Normal air movement Cardiovascular: Regular rate Extremities: No edema, Capillary Refill Less than 3 Seconds Skin: Ulcer/ Wound - right ischial ulcer stage IV Wound Measurements and Assessment WC - Nurse 1 - General Ulcer Measurement Start: 05/17/18 10:23 Freq: Status: Active Protocol: Activity Type Activity Date Activity User E-Sign Co-Sign Detail Recorded Client Recorded Date Recorded By Document 05/17/18 10:23 MW [id number] 05/17/18 10:37 MW 05/17/18 10:23 Wound Center Nurse 1 [Ulcer Assessment] #1 RT ISCHIUM- POST OP -Combined with other wound No -Photo Taken No -Tunneling No -Undermining/Tunneling No -Circular Undermining No -Exudate Amt Medium -Exudate Type Serosanguineous -Wound Margin Distinct, Outline Attached -Granulation Amt Medium (34-66%) -Granulation Quality Arnot -Slough/Fibrin Yes -Necrosis Amt Medium (34-66%) -Necrotic Tissue Type Adherent Slough -Structure Exposed Bone -Texture (Elizabeth-wound Skin Appearance) Assessed Scarring -Moisture (Elizabeth-wound Skin Appearance No Abnormality ) Assessed -Color (Elizabeth-wound Skin Appearance) No Abnormality Assessed -Temperature (Elizabeth-wound Skin No Abnormality Appearance) (Pt Warm) -Tenderness on Palpation (Elizabeth-wound No Skin Appearance) -Ulcer Cleansing Rinsed/ Irrigated with Saline -Foul Odor after Cleansing No -Anesthetic Used 4% Lidocaine Solution [Edema Assessment] -Lower Limb Edema Present No Musculoskeletal: No Tenderness to Palpation of Joints or Extremities Neurological: Cranial nerves II-XII grossly intact Psych/Mental Status: Normal Affect, Appropriate Debridement Note Wound debrided: ischial ulcer Laterality: Right Type of Debridement: Excisional debridement Anesthesia Used: 4% Lidocaine Solution Depth: Down to and including healthy tissue, in the subcutaneous layer, to muscle Percentage of wound debrided: 100 Instrument Used: 5mm curette Tissue Removed: subcutaneous tissue and slough Severity: Fat Layer Exposed Amount of bleeding with debridement: Mild Bleeding Controlled with: Pressure, Compression and gauze Patient tolerated procedure well Assessment/Plan Active Problems Osteomyelitis of right side of pelvis (Chronic) Right ischial pressure sore, stage 4 (Chronic) Paraplegia (Chronic) Assessment: 1. Right ischial pressure sore, stage IV. 2. Paraplegia. 3. History of osteomyelitis. 4. s/p excision right ischial pressure sore, Stage IV, with partial ostectomy for osteomyelitis. Plan: Continue Silver dressing changes daily with Sorbian Sachet for absorption of drainage. His operative cultures in soft tissue and bone showed Enterobacter cloacae. Combined with the preop cultures that showed Staphylococcus haemolyticus and Aerococcus viridans, he was discharged on Vancomycin, Levaquin, and Diflucan. He has finished the Vancomycin and the Levaquin. A wound culture from 01/11/18 showed Staphylococcus lentus and Granulicatella adiacens. He was placed on Doxycycline and stopped them because of GI issues. The undermining in the ulcer is stable but there was more moisture in the ulcer today. A wound culture was obtained today. He has been in bed more, trying to avoid long periods in his chair. When he is sitting in his chair he has significantly more drainage. A CT Pelvis was done on 11/07/17. It was suspicious for osteomyelitis. Pathology was negative for osteomyelitis. At this time the insurance carrier has denied his HBO treatments. Patient needs to wait 4 months with continued treatments (surgery, wound care, and antibiotics). Will repeat the CT scan. If still suspicious for osteomyelitis, will reapply for HBO treatments for chronic refractory osteomyelitis. Prealbumin from 11/18/17 was 21.3. Encourage nutritional supplementation with protein to help the healing process. Followup 2 weeks. Code Visit [id number]: [id number] Mirella subq tissue 20 sq cm/< Add On Codes: [id number] Mirella subq tissue add-on
[2018-05-31 10:27] VITALS: BP 121/53; PULSE 94; RESP 18; TEMP 35.2
--- NOTE | 2018-05-31 17:29 | PCM.WC.PN ---
Type of Wound Date of Service: 05/31/18 Chief Complaint: Right ischial pressure sore, Stage IV. History of Wound: Surgery 11/17/17 - Excision right ischial pressure sore, Stage IV, with partial ostectomy for osteomyelitis. Wound care - Silver. Operative culture, bone and soft tissue - Enterobacter cloacae. Preop culture showed Staphylococcus haemolyticus and Aerococcus viridans. He was discharged on Vancomycin, and Levaquin, and Diflucan. He has finished them. Another wound culture from 01/11/18 showed Staphylococcus lentus and Granulicatella adiacens. He was started on Doxycycline and stopped them because of GI issues. Another wound culture was obtained on 03/29/18. It showed Citrobacter freundii, Enterococcus faecalis, Streptococcus mitis/orallis, and Corynebacterium minutissimum. He was started on Augmentin and Levaquin. He states he has stopped the Augmentin because of diarrhea. He finished the Levaquin. At his last visit on 05/17/18, another wound culture was done because of persistent moisture in the ulcer. It showed Enterococcus faecalis and Enterococcus avium. He was started on Augmentin. He was encouraged to eat yogurt to minimize his GI issues. Prealbumin from 11/18/17 was 21.3. Encourage nutritional supplementation with protein to help the healing process. CT Pelvis was done on 11/07/17. It showed right buttocks and upper posterior thigh decubitus ulcer with granulation tissue and air pocket extending to the ischial tuberosity appear larger when compared to the previous study. There is osteosclerosis in the ischial tuberosity with irregular periosteal bone formation suggesting chronic osteomyelitis.. A repeat CT Pelvis was done on 05/17/18. It showed bony. irregularity about the right greater trochanter which is unchanged. Again. seen is a large decubitus ulcer which extends upward to the right issue. tuberosity. There is a large right-sided decubitus ulcer. The possibility of osteomyelitis in the ischial tuberosity cannot be completely ruled out.. Today he denies fever. His appetite is good. The undermining in the ulcer is stable with increased moisture in the ulcer. Patient states he had some family issues and had spent more time in his wheelchair. Progress of Wound: Minimal improvement with stable undermining but increased moisture in the ulcer. - Physical Exam Vital Signs Temp Pulse Resp BP 95.3 F L 94 18 121/53 H 05/31/18 10:27 05/31/18 10:27 05/31/18 10:27 05/31/18 10:27 Wound Measurements and Assessment WC - Nurse 1 - General Ulcer Measurement Start: 05/17/18 10:23 Freq: Status: Active Protocol: Activity Type Activity Date Activity User E-Sign Co-Sign Detail Recorded Client Recorded Date Recorded By Document 05/31/18 10:27 MW [id number] 05/31/18 10:43 MW 05/31/18 10:27 Wound Center Nurse 1 [Ulcer Assessment] #1 RT ISCHIUM- POST OP -Combined with other wound No -Current Size (cm) - Length 8.0 -Current Size (cm) - Width 2.0 -Current Size (cm) - Depth 2.8 -Total Square Cm 16.00 -Photo Taken No -Epithelialization None Present -Tunneling No -Undermining/Tunneling No -Circular Undermining No -Exudate Amt Large -Exudate Type Serosanguineous -Wound Margin Thickened -Granulation Amt Medium (34-66%) -Granulation Quality Red -Slough/Fibrin Yes -Necrosis Amt Small (1-33%) -Necrotic Tissue Type Adherent Slough -Structure Exposed N/A -Texture (Elizabeth-wound Skin Appearance) Assessed Scarring -Moisture (Elizabeth-wound Skin Appearance No Abnormality ) Assessed -Color (Elizabeth-wound Skin Appearance) No Abnormality Assessed -Temperature (Elizabeth-wound Skin No Abnormality Appearance) (Pt Warm) -Tenderness on Palpation (Elizabeth-wound No Skin Appearance) -Ulcer Cleansing Rinsed/ Irrigated with Saline -Foul Odor after Cleansing No -Anesthetic Used 4% Lidocaine Solution [Edema Assessment] -Lower Limb Edema Present No WC - Nurse 2 - General Ulcer CM Notes Start: 05/17/18 10:23 Freq: Status: Active Protocol: Activity Type Activity Date Activity User E-Sign Co-Sign Detail Recorded Client Recorded Date Recorded By Document 05/31/18 10:57 [id number] [id number] 05/31/18 11:00 JF 05/31/18 10:57 Wound Center Nurse 2 [Procedure/Treatment] #1 RT ISCHIUM- POST OP -Time 10:58 -Correct Patient Yes -Correct Side, Site, Position Yes -Correct Procedure Yes -Procedure Performed Yes -Type of Procedure Debridement -Clinical Debridement Muscle -Post Debridement Size (cm) - Length 8.1 -Post Debridement Size (cm) - Width 2.1 -Post Debridement Size (cm) - Depth 2.8 -Total Square Cm 17.01 -Wound/Ulcer Outcome Not Healed -Ulcer Cleansing Rinsed/ Irrigated with Saline -Foul Odor after Cleansing No -Bioengineered Tissue No -Bleeding Controlled with Pressure -Offloading No -Treatment Response Procedure Tolerated Well [See Physician Procedure note for Specifics] Pain Scale: 0-10 Numeric [Pain] -Is Patient Pain Free? Yes Debridement Note Post-Debridement Measurements/Treatment WC - Nurse 2 - General Ulcer CM Notes Start: 05/17/18 10:23 Freq: Status: Active Protocol: Activity Type Activity Date Activity User E-Sign Co-Sign Detail Recorded Client Recorded Date Recorded By Document 05/17/18 11:00 [id number] 05/17/18 11:04 Document 05/31/18 10:57 [id number] 05/31/18 11:00 05/17/18 05/31/18 11:00 10:57 Wound Center Nurse 2 #1 RT ISCHIUM- POST OP -Time 11:00 10:58 -Correct Patient Yes Yes -Correct Side, Site, Position Yes Yes -Correct Procedure Yes Yes -Procedure Performed Yes Yes -Type of Procedure Debridement Debridement -Clinical Debridement Muscle Muscle -Post Debridement Size (cm) - Length 8 8.1 -Post Debridement Size (cm) - Width 5 2.1 -Post Debridement Size (cm) - Depth 2.5 2.8 -Total Square Cm 40 17.01 -Wound/Ulcer Outcome Not Healed Not Healed -Ulcer Cleansing Rinsed/ Rinsed/ Irrigated with Irrigated with Saline Saline -Foul Odor after Cleansing No No -Bioengineered Tissue No No -Bleeding Controlled with Pressure Pressure -Offloading No No -Treatment Response Procedure Procedure Tolerated Well Tolerated Well Pain Scale: 0-10 Numeric Is Patient Pain Free? Yes Yes Wound debrided: #1 Right ischial area. Laterality: Right Wound Grade/Stage: IV. Type of Debridement: Excisional debridement Anesthesia Used: 4% Lidocaine Solution Depth: Down to and including healthy tissue, in the subcutaneous layer, to muscle, to bone - bone is palpable but not debrided. Percentage of wound debrided: 100 Instrument Used: 7mm curette Tissue Removed: subcutaneous tissue and muscle. Severity: Fat Layer Exposed - muscle is exposed. bone is palpable but not debrided. Amount of bleeding with debridement: Mild Bleeding Controlled with: Pressure Patient tolerated procedure well Assessment/Plan Assessment: 1. Right ischial pressure sore, stage IV. 2. Paraplegia. 3. Chronic refractory osteomyelitis. 4. s/p excision right ischial pressure sore, Stage IV, with partial ostectomy for osteomyelitis. Plan: Continue Silver dressing changes with Sorbian Sachet for absorption of drainage. With the increased moisture, the dressing changes were increased to twice a day. The undermining in the ulcer was stable but there was more moisture in the ulcer, so a wound culture was obtained at his last visit on 05/17/18. It showed Enterococcus faecalis and Enterococcus avium. He was started on Augmentin and was encouraged to eat yogurt to minimize his GI issues. A CT Pelvis was done on 11/07/17. It was suspicious for osteomyelitis. A repeat CT Pelvis was done on 05/17/18. Once again osteomyelitis is suspected and cannot be ruled out. Since osteomyelitis is still suspected despite surgery, wound care, and antibiotics, I feel he qualifies for chronic refractory osteomyelitis. He would benefit from HBO treatments for this. Prealbumin from 11/18/17 was 21.3. Encourage nutritional supplementation with protein to help the healing process. Because of the increased moisture and presence of some undermining, and the difficulty with po antibiotics, he may ultimately need IV antibiotics, additional operative debridement, and the use of the VAC. Before any additional surgery, would proceed with HBO treatments first. Patient states he is still not interested in a muscle flap for wound closure because he doesn't like the idea of 6 weeks bedrest after the surgery. Because of the persistent moisture and drainage and the need for twice a day dressing changes, he is interested in the portable SNAP VAC which we will pursue approval for. Followup 2 weeks.
== END 2018-06-10 23:59 ==
LOC: WC 10:00
PROVIDERS: Family Provider Preventive Medicine Occupational Medicine; PCP Preventive Medicine Occupational Medicine; Referring Provider Nurse Practitioner Family; Visit Provider Nurse Practitioner Family
DX: L89.214 Pressure ulcer of right hip, stage 4 (principal); G82.20 Paraplegia, unspecified; M86.68 Other chronic osteomyelitis, other site
CPT/HCPCS: 11042; 11043; 11045; 87070; 87075; 87077; 87186; 87205

== ENCOUNTER 2018-07-05 10:00 | Outpatient (RCR) | payer BC, MEDICARE, SELFPAY ==
[2018-06-11 01:32] VITALS: BP 121/53; PULSE 94; RESP 18; TEMP 35.2
[2018-06-14 10:45] VITALS: BP 123/105; PULSE 106; RESP 16; TEMP 36.6
--- NOTE | 2018-06-14 17:36 | PCM.WC.PN ---
Type of Wound Date of Service: 06/14/18 Chief Complaint: Right ischial pressure sore, Stage IV. History of Wound: Surgery 11/17/17 - Excision right ischial pressure sore, Stage IV, with partial ostectomy for osteomyelitis. Wound care - Silver. Operative culture, bone and soft tissue - Enterobacter cloacae. Preop culture showed Staphylococcus haemolyticus and Aerococcus viridans. He was discharged on Vancomycin, and Levaquin, and Diflucan. He has finished them. Another wound culture from 01/11/18 showed Staphylococcus lentus and Granulicatella adiacens. He was started on Doxycycline and stopped them because of GI issues. Another wound culture was obtained on 03/29/18. It showed Citrobacter freundii, Enterococcus faecalis, Streptococcus mitis/orallis, and Corynebacterium minutissimum. He was started on Augmentin and Levaquin. He states he has stopped the Augmentin because of diarrhea. He finished the Levaquin. At his last visit on 05/17/18, another wound culture was done because of persistent moisture in the ulcer. It showed Enterococcus faecalis and Enterococcus avium. He was started on Augmentin. He was encouraged to eat yogurt to minimize his GI issues. Prealbumin from 11/18/17 was 21.3. Encourage nutritional supplementation with protein to help the healing process. CT Pelvis was done on 11/07/17. It showed right buttocks and upper posterior thigh decubitus ulcer with granulation tissue and air pocket extending to the ischial tuberosity appear larger when compared to the previous study. There is osteosclerosis in the ischial tuberosity with irregular periosteal bone formation suggesting chronic osteomyelitis.. A repeat CT Pelvis was done on 05/17/18. It showed bony. irregularity about the right greater trochanter which is unchanged. Again. seen is a large decubitus ulcer which extends upward to the right issue. tuberosity. There is a large right-sided decubitus ulcer. The possibility of osteomyelitis in the ischial tuberosity cannot be completely ruled out.. Today he denies fever. His appetite is good. The undermining in the ulcer is stable with increased moisture in the ulcer. Patient states he had some family issues and had spent more time in his wheelchair. With his chronic refractory osteomyelitis, we are waiting on insurance approval for HBO treatments. Progress of Wound: Minimal improvement with stable undermining but increased moisture in the ulcer. - Physical Exam Vital Signs Temp Pulse Resp BP 97.8 F 106 H 16 123/105 H 06/14/18 10:45 06/14/18 10:45 06/14/18 10:45 06/14/18 10:45 Wound Measurements and Assessment WC - Nurse 1 - General Ulcer Measurement Start: 06/14/18 10:19 Freq: Status: Active Protocol: Activity Type Activity Date Activity User E-Sign Co-Sign Detail Recorded Client Recorded Date Recorded By Document 06/14/18 10:45 [facility] [id number] 06/14/18 10:55 [facility] 06/14/18 10:45 Wound Center Nurse 1 [Ulcer Assessment] #1 RT ISCHIUM- POST OP -Combined with other wound No -Current Size (cm) - Length 8.5 -Current Size (cm) - Width 2.7 -Current Size (cm) - Depth 2.1 -Total Square Cm 22.95 -Date of Last Picture (Recall this 06/14/18 field) -Photo Taken No -Epithelialization None Present -Tunneling Yes -Tunneling Position (O'clock) 12 -Tunneling Distance (cm) 4.4 -Undermining/Tunneling No -Circular Undermining No -Exudate Amt Large -Exudate Type Serosanguineous -Wound Margin Distinct, Outline Attached -Granulation Amt Medium (34-66%) -Granulation Quality Red -Slough/Fibrin Yes -Necrosis Amt Small (1-33%) -Necrotic Tissue Type Adherent Slough -Structure Exposed Fascia Muscle -Texture (Elizabeth-wound Skin Appearance) Excoriation Scarring Rash -Moisture (Elizabeth-wound Skin Appearance Maceration ) -Color (Elizabeth-wound Skin Appearance) Assessed Erythema Palor -Temperature (Elizabeth-wound Skin No Abnormality Appearance) (Pt Warm) -Tenderness on Palpation (Elizabeth-wound No Skin Appearance) -Ulcer Cleansing Wound Cleanser -Foul Odor after Cleansing No -Anesthetic Used 4% Lidocaine Solution WC - Nurse 2 - General Ulcer CM Notes Start: 06/14/18 10:19 Freq: Status: Active Protocol: Activity Type Activity Date Activity User E-Sign Co-Sign Detail Recorded Client Recorded Date Recorded By Document 06/14/18 11:26 [id number] 06/14/18 11:26 03/04/19 11:26 Wound Center Nurse 2 [Procedure/Treatment] -Time 11:26 -Correct Patient Yes -Correct Side, Site, Position Yes -Correct Procedure Yes -Procedure Performed Yes -Type of Procedure Debridement -Clinical Debridement Muscle -Post Debridement Size (cm) - Length 8.5 -Post Debridement Size (cm) - Width 2.8 -Post Debridement Size (cm) - Depth 2.1 -Total Square Cm 23.80 -Wound/Ulcer Outcome Not Healed -Ulcer Cleansing Rinsed/ Irrigated with Saline -Foul Odor after Cleansing No -Bioengineered Tissue No -Bleeding Controlled with Pressure -Offloading No -Treatment Response Procedure Tolerated Well [See Physician Procedure note for Specifics] Pain Scale: 0-10 Numeric [Pain] -Is Patient Pain Free? Yes Debridement Note Post-Debridement Measurements/Treatment WC - Nurse 2 - General Ulcer CM Notes Start: 06/14/18 10:19 Freq: Status: Active Protocol: Activity Type Activity Date Activity User E-Sign Co-Sign Detail Recorded Client Recorded Date Recorded By Document 06/14/18 11:26 [id number] 06/14/18 11:26 06/14/18 11:26 Wound Center Nurse 2 #1 RT ISCHIUM- POST OP -Time 11:26 -Correct Patient Yes -Correct Side, Site, Position Yes -Correct Procedure Yes -Procedure Performed Yes -Type of Procedure Debridement -Clinical Debridement Muscle -Post Debridement Size (cm) - Length 8.5 -Post Debridement Size (cm) - Width 2.8 -Post Debridement Size (cm) - Depth 2.1 -Total Square Cm 23.80 -Wound/Ulcer Outcome Not Healed -Ulcer Cleansing Rinsed/ Irrigated with Saline -Foul Odor after Cleansing No -Bioengineered Tissue No -Bleeding Controlled with Pressure -Offloading No -Treatment Response Procedure Tolerated Well Pain Scale: 0-10 Numeric Is Patient Pain Free? Yes Wound debrided: #1 Right ischial area. Laterality: Right Wound Grade/Stage: IV. Type of Debridement: Excisional debridement Anesthesia Used: 4% Lidocaine Solution Depth: Down to and including healthy tissue, in the subcutaneous layer, to muscle, to bone - bone is palpable but not debrided. Percentage of wound debrided: 100 Instrument Used: 5mm curette Tissue Removed: subcutaneous tissue and muscle. Severity: Fat Layer Exposed - muscle is exposed. bone is palpable but not debrided. Amount of bleeding with debridement: Mild Bleeding Controlled with: Pressure Patient tolerated procedure well Assessment/Plan Assessment: 1. Right ischial pressure sore, stage IV. 2. Paraplegia. 3. Chronic refractory osteomyelitis. 4. s/p excision right ischial pressure sore, Stage IV, with partial ostectomy for osteomyelitis. Plan: Continue Silver dressing changes with Sorbian Sachet for absorption of drainage. With the increased moisture, the dressing changes were increased to twice a day. The undermining in the ulcer was stable but there was more moisture in the ulcer, so a wound culture was obtained at his last visit on 05/17/18. It showed Enterococcus faecalis and Enterococcus avium. He was started on Augmentin and was encouraged to eat yogurt to minimize his GI issues. A CT Pelvis was done on 11/07/17. It was suspicious for osteomyelitis. A repeat CT Pelvis was done on 05/17/18. Once again osteomyelitis is suspected and cannot be ruled out. Since osteomyelitis is still suspected despite surgery, wound care, and antibiotics, I feel he qualifies for chronic refractory osteomyelitis. He would benefit from HBO treatments for this. Prealbumin from 11/18/17 was 21.3. Encourage nutritional supplementation with protein to help the healing process. Because of the increased moisture and presence of some undermining, and the difficulty with po antibiotics, he may ultimately need IV antibiotics, additional operative debridement, and the use of the VAC. Before any additional surgery, would proceed with HBO treatments first. Patient states he is still not interested in a muscle flap for wound closure because he doesn't like the idea of 6 weeks bedrest after the surgery. Because of the persistent moisture and drainage and the need for twice a day dressing changes, he was interested in the portable SNAP VAC. However today he decided against the SNAP VAC. Followup 3 weeks to see Noemy Nurse Practitioner.
[2018-06-28 10:13] VITALS: BP 98/78; PULSE 105; RESP 20; TEMP 36
--- NOTE | 2018-06-28 14:22 | PCM.WC.PN ---
(1) Right ischial pressure sore, stage 4 Status: Chronic Current Visit: Yes Code(s): L89.314 - Pressure ulcer of right buttock, stage 4 (2) Paraplegia Status: Chronic Current Visit: Yes Code(s): G82.20 - Paraplegia, unspecified (3) History of osteomyelitis Status: Chronic Current Visit: Yes Code(s): Z87.39 - Personal history of other diseases of the musculoskeletal system and connective tissue (4) Complicated wound infection Status: Acute Current Visit: Yes Code(s): T14.8 - Other injury of unspecified body region; L08.9 - Local infection of the skin and subcutaneous tissue, unspecified Type of Wound Date of Service: 06/28/18 Chief Complaint: Right ischial pressure sore, Stage IV. History of Wound: Surgery 11/17/17 - Excision right ischial pressure sore, Stage IV, with partial ostectomy for osteomyelitis. Wound care -Will start Dakin's solution. Operative culture, bone and soft tissue - Enterobacter cloacae. Preop culture showed Staphylococcus haemolyticus and Aerococcus viridans. He was discharged on Vancomycin, and Levaquin, and Diflucan. He has finished them. Another wound culture from 01/11/18 showed Staphylococcus lentus and Granulicatella adiacens. He was started on Doxycycline and stopped them because of GI issues. Another wound culture was obtained on 03/29/18. It showed Citrobacter freundii, Enterococcus faecalis, Streptococcus mitis/orallis, and Corynebacterium minutissimum. He was started on Augmentin and Levaquin. He states he has stopped the Augmentin because of diarrhea. He finished the Levaquin. At his last visit on 05/17/18, another wound culture was done because of persistent moisture in the ulcer. It showed Enterococcus faecalis and Enterococcus avium. He was started on Augmentin. He was encouraged to eat yogurt to minimize his GI issues. Prealbumin from 11/18/17 was 21.3. Encourage nutritional supplementation with protein to help the healing process. CT Pelvis was done on 11/07/17. It showed right buttocks and upper posterior thigh decubitus ulcer with granulation tissue and air pocket extending to the ischial tuberosity appear larger when compared to the previous study. There is osteosclerosis in the ischial tuberosity with irregular periosteal bone formation suggesting chronic osteomyelitis.. A repeat CT Pelvis was done on 05/17/18. It showed bony. irregularity about the right greater trochanter which is unchanged. Again. seen is a large decubitus ulcer which extends upward to the right issue. tuberosity. There is a large right-sided decubitus ulcer. The possibility of osteomyelitis in the ischial tuberosity cannot be completely ruled out.. Today he denies fever. His appetite is good. The undermining in the ulcer is stable with increased moisture in the ulcer. Patient states he has been spending more time in bed to help decrease the amount of moisture. Augmentin was stopped last week due to breaking out in hives. Family refusing PICC line for IV antibiotics. The family would like him to have the wound VAC. Refusing any further surgeries for debridement or a flap for closure. Will start Dakins solution to help clean up wound. With his chronic refractory osteomyelitis, we are waiting on insurance approval for HBO treatments. Progress of Wound: Stable. Continues to have increased amount of drainage. - Physical Exam Vital Signs Temp Pulse Resp BP 96.8 F L 105 H 20 H 98/78 06/28/18 10:13 06/28/18 10:13 06/28/18 10:13 06/28/18 10:13 General: Alert, Oriented x3, Cooperative HEENT: Atraumatic Oral: Moist Mucosa Lungs: Normal air movement Cardiovascular: Regular rate Extremities: No edema, Capillary Refill Less than 3 Seconds Skin: Ulcer/ Wound - Right sacral stage IV ulcer Wound Measurements and Assessment WC - Nurse 1 - General Ulcer Measurement Start: 06/14/18 10:19 Freq: Status: Active Protocol: Activity Type Activity Date Activity User E-Sign Co-Sign Detail Recorded Client Recorded Date Recorded By Document 06/28/18 10:13 DL [id number] 06/28/18 10:29 DL 06/28/18 10:13 Wound Center Nurse 1 [Ulcer Assessment] #1 RT ISCHIUM- POST OP -Current Size (cm) - Length 8.7 -Current Size (cm) - Width 4.5 -Current Size (cm) - Depth 1.8 -Total Square Cm 39.15 -Photo Taken No -Tunneling Position (O'clock) 12 -Tunneling Distance (cm) 3.5 -Exudate Amt Medium -Exudate Type Serosanguineous -Wound Margin Distinct, Outline Attached -Granulation Amt Medium (34-66%) -Granulation Quality [place] Red -Necrosis Amt Medium (34-66%) -Necrotic Tissue Type Adherent Slough -Structure Exposed N/A -Texture (Elizabeth-wound Skin Appearance) Scarring -Moisture (Elizabeth-wound Skin Appearance No Abnormality ) -Color (Elizabeth-wound Skin Appearance) No Abnormality -Temperature (Elizabeth-wound Skin No Abnormality Appearance) (Pt Warm) -Tenderness on Palpation (Elizabeth-wound No Skin Appearance) -Ulcer Cleansing Wound Cleanser -Foul Odor after Cleansing No -Anesthetic Used 4% Lidocaine Solution - Nurse 2 - General Ulcer CM Notes Start: 06/14/18 10:19 Freq: Status: Active Protocol: Activity Type Activity Date Activity User E-Sign Co-Sign Detail Recorded Client Recorded Date Recorded By Document 06/28/18 10:49 [id number] 06/28/18 10:58 06/28/18 10:49 Wound Center Nurse 2 [Procedure/Treatment] -Time 10:49 -Correct Patient Yes -Correct Side, Site, Position Yes -Correct Procedure Yes -Procedure Performed Yes -Type of Procedure Debridement -Clinical Debridement Muscle -Post Debridement Size (cm) - Length 8.8 -Post Debridement Size (cm) - Width 4.5 -Post Debridement Size (cm) - Depth 1.8 -Total Square Cm 39.60 -Wound/Ulcer Outcome Not Healed -Ulcer Cleansing Rinsed/ Irrigated with Saline -Foul Odor after Cleansing No -Bioengineered Tissue No -Bleeding Controlled with Pressure -Offloading No -Treatment Response Procedure Tolerated Well [See Physician Procedure note for Specifics] Pain Scale: 0-10 Numeric [Pain] -Is Patient Pain Free? Yes Musculoskeletal: No Tenderness to Palpation of Joints or Extremities Neurological: Neuro grossly intact Psych/Mental Status: Normal Affect, Appropriate Debridement Note Post-Debridement Measurements/Treatment - Nurse 2 - General Ulcer CM Notes Start: 06/14/18 10:19 Freq: Status: Active Protocol: Activity Type Activity Date Activity User E-Sign Co-Sign Detail Recorded Client Recorded Date Recorded By Document 06/14/18 11:26 [id number] 06/14/18 11:26 Document 06/28/18 10:49 [id number] 06/28/18 10:58 06/14/18 06/28/18 11:26 10:49 Wound Center Nurse 2 #1 RT ISCHIUM- POST OP -Time 11:26 10:49 -Correct Patient Yes Yes -Correct Side, Site, Position Yes Yes -Correct Procedure Yes Yes -Procedure Performed Yes Yes -Type of Procedure Debridement Debridement -Clinical Debridement Muscle Muscle -Post Debridement Size (cm) - Length 8.5 8.8 -Post Debridement Size (cm) - Width 2.8 4.5 -Post Debridement Size (cm) - Depth 2.1 1.8 -Total Square Cm 23.80 39.60 -Wound/Ulcer Outcome Not Healed Not Healed -Ulcer Cleansing Rinsed/ Rinsed/ Irrigated with Irrigated with Saline Saline -Foul Odor after Cleansing No No -Bioengineered Tissue No No -Bleeding Controlled with Pressure Pressure -Offloading No No -Treatment Response Procedure Procedure Tolerated Well Tolerated Well Pain Scale: 0-10 Numeric Is Patient Pain Free? Yes Yes Wound debrided: Right sacrum Laterality: Right Type of Debridement: Excisional debridement Anesthesia Used: 4% Lidocaine Solution Depth: Down to and including healthy tissue Percentage of wound debrided: 100 Instrument Used: 7mm curette Tissue Removed: Subcutaneous tissue and slough Severity: Fat Layer Exposed Amount of bleeding with debridement: Mild Bleeding Controlled with: Pressure Patient tolerated procedure well Assessment/Plan Active Problems Right ischial pressure sore, stage 4 (Chronic) Paraplegia (Chronic) History of osteomyelitis (Chronic) Complicated wound infection (Acute) Assessment: 1. Right ischial pressure sore, stage IV. 2. Paraplegia. 3. Chronic refractory osteomyelitis. 4. s/p excision right ischial pressure sore, Stage IV, with partial ostectomy for osteomyelitis. Plan: Will start Dakins solution 1-2 times daily to dry to improve the wound bed so we will be able to apply a wound VAC. he undermining in the ulcer was stable but there was more moisture in the ulcer, so a wound culture was obtained at his last visit on 05/17/18. It showed Enterococcus faecalis and Enterococcus avium. He was started on Augmentin and was encouraged to eat yogurt to minimize his GI issues. Augmentin was stopped last week due to patient breaking out in hives. He denies any breathing difficulties. A CT Pelvis was done on 11/07/17. It was suspicious for osteomyelitis. A repeat CT Pelvis was done on 2/4/19. Once again osteomyelitis is suspected and cannot be ruled out. Since osteomyelitis is still suspected despite surgery, wound care, and antibiotics, I feel he qualifies for chronic refractory osteomyelitis. He would benefit from HBO treatments for this. Prealbumin from 11/18/17 was 21.3. Encourage nutritional supplementation with protein to help the healing process. Because of the increased moisture and presence of some undermining, and the difficulty with po antibiotics, he may ultimately need IV antibiotics, additional operative debridement, and the use of the VAC. Before any additional surgery, would proceed with HBO treatments first. Patient states he is still not interested in a muscle flap for wound closure because he doesn't like the idea of 6 weeks bedrest after the surgery. Because of the persistent moisture and drainage and the need for twice a day dressing changes. Followup 1 week. Code Visit [id number]: 21244 Mirella musc/fascia 20 sq cm/< Add On Codes: 42522 Mirella musc/fascia add-on
[2018-07-05 10:17] VITALS: BP 117/76; PULSE 104; RESP 16; TEMP 36
--- NOTE | 2018-07-05 12:00 | PN.PCM_ITS ---
(1) Right ischial pressure sore, stage 4 Status: Chronic Current Visit: Yes Code(s): L89.314 - Pressure ulcer of right buttock, stage 4 (2) Paraplegia Status: Chronic Current Visit: Yes Code(s): G82.20 - Paraplegia, unspecified (3) History of osteomyelitis Status: Chronic Current Visit: Yes Code(s): Z87.39 - Personal history of other diseases of the musculoskeletal system and connective tissue (4) Complicated wound infection Status: Acute Current Visit: Yes Code(s): T14.8 - Other injury of unspecified body region; L08.9 - Local infection of the skin and subcutaneous tissue, unspecified Type of Wound Date of Service: 07/05/18 Chief Complaint: Right ischial pressure sore, Stage IV. History of Wound: Surgery 11/17/17 - Excision right ischial pressure sore, Stage IV, with partial ostectomy for osteomyelitis. Wound care -Dakin's solution. Operative culture, bone and soft tissue - Enterobacter cloacae. Preop culture showed Staphylococcus haemolyticus and Aerococcus viridans. He was discharged on Vancomycin, and Levaquin, and Diflucan. He has finished them. Another wound culture from 01/11/18 showed Staphylococcus lentus and Granulicatella adiacens. He was started on Doxycycline and stopped them because of GI issues. Another wound culture was obtained on 03/29/18. It showed Citrobacter freundii, Enterococcus faecalis, Streptococcus mitis/orallis, and Corynebacterium minutissimum. He was started on Augmentin and Levaquin. He states he has stopped the Augmentin because of diarrhea. He finished the Levaquin. On 05/17/18, another wound culture was done because of persistent moisture in the ulcer. It showed Enterococcus faecalis and Enterococcus avium. He was started on Augmentin. He was encouraged to eat yogurt to minimize his GI issues. Prealbumin from 11/18/17 was 21.3. Encourage nutritional supplementation with protein to help the healing process. CT Pelvis was done on 11/07/17. It showed right buttocks and upper posterior thigh decubitus ulcer with granulation tissue and air pocket extending to the ischial tuberosity appear larger when compared to the previous study. There is osteosclerosis in the ischial tuberosity with irregular periosteal bone formation suggesting chronic osteomyelitis.. A repeat CT Pelvis was done on 05/17/18. It showed bony. irregularity about the right greater trochanter which is unchanged. Again. seen is a large decubitus ulcer which extends upward to the right issue. tuberosity. There is a large right-sided decubitus ulcer. The possibility of osteomyelitis in the ischial tuberosity cannot be completely ruled out.. Today he denies fever. His appetite is good. The undermining in the ulcer is stable with increased moisture in the ulcer. Patient states he has been spending more time in bed to help decrease the amount of moisture. Augmentin was stopped due to breaking out in hives. Family refusing PICC line for IV antibiotics. The family would like him to have the wound VAC. Refusing any further surgeries for debridement or a flap for closure. Started Dakins solution which is helping clean up wound. Discussued using Sorbian sachet dressing when he gets up to help absorb the moisture. With his chronic refractory osteomyelitis, we are waiting on insurance approval for HBO treatments. Progress of Wound: Mild improvement. - Physical Exam Vital Signs Temp Pulse Resp BP 96.8 F L 104 H 16 117/76 07/05/18 10:17 07/05/18 10:17 07/05/18 10:17 07/05/18 10:17 General: Alert, Oriented x3, Cooperative HEENT: Atraumatic Oral: Moist Mucosa Lungs: Normal air movement Cardiovascular: Regular rate Extremities: No edema, Capillary Refill Less than 3 Seconds Skin: Ulcer/ Wound - Sacral ulcer Wound Measurements and Assessment WC - Nurse 1 - General Ulcer Measurement Start: 06/14/18 10:19 Freq: Status: Active Protocol: Activity Type Activity Date Activity User E-Sign Co-Sign Detail Recorded Client Recorded Date Recorded By Document 07/05/18 10:17 [facility] [id number] 07/05/18 10:28 [facility] 07/05/18 10:17 Wound Center Nurse 1 [Ulcer Assessment] #1 RT ISCHIUM- POST OP -Combined with other wound No -Current Size (cm) - Length 8 -Current Size (cm) - Width 4 -Current Size (cm) - Depth 2.1 -Total Square Cm 32 -Photo Taken No -Epithelialization None Present -Tunneling Yes -Tunneling Position (O'clock) 12 -Tunneling Distance (cm) 4.7 -Undermining/Tunneling No -Circular Undermining No -Exudate Amt Large -Exudate Type Serosanguineous -Wound Margin Thickened & Rolled Under -Granulation Amt Medium (34-66%) -Granulation Quality Red -Slough/Fibrin Yes -Necrosis Amt Medium (34-66%) -Necrotic Tissue Type Adherent Slough -Structure Exposed Muscle -Texture (Elizabeth-wound Skin Appearance) Excoriation Scarring Rash -Moisture (Elizabeth-wound Skin Appearance Maceration ) -Color (Elizabeth-wound Skin Appearance) Assessed Erythema -Temperature (Elizabeth-wound Skin No Abnormality Appearance) (Pt Warm) -Tenderness on Palpation (Elizabeth-wound No Skin Appearance) -Ulcer Cleansing Wound Cleanser -Foul Odor after Cleansing No WC - Nurse 2 - General Ulcer CM Notes Start: 06/14/18 10:19 Freq: Status: Active Protocol: Activity Type Activity Date Activity User E-Sign Co-Sign Detail Recorded Client Recorded Date Recorded By Document 07/05/18 10:35 [facility] [id number] 07/05/18 10:43 [facility] 07/05/18 10:35 Wound Center Nurse 2 [Procedure/Treatment] -Time 10:36 -Correct Patient Yes -Correct Side, Site, Position Yes -Correct Procedure Yes -Procedure Performed Yes -Type of Procedure Debridement -Clinical Debridement Subcutaneous -Post Debridement Size (cm) - Length 8 -Post Debridement Size (cm) - Width 4.5 -Post Debridement Size (cm) - Depth 3.6 -Total Square Cm 36.0 -Wound/Ulcer Outcome Not Healed -Ulcer Cleansing Rinsed/ Irrigated with Saline -Foul Odor after Cleansing No -Bioengineered Tissue No -Bleeding Controlled with Pressure -Other 12:00-3.8cm -Offloading No -Treatment Response Procedure Tolerated Well [See Physician Procedure note for Specifics] Pain Scale: 0-10 Numeric [Pain] -Is Patient Pain Free? Yes Musculoskeletal: No Tenderness to Palpation of Joints or Extremities Neurological: Neuro grossly intact Psych/Mental Status: Normal Affect, Appropriate Debridement Note Post-Debridement Measurements/Treatment WC - Nurse 2 - General Ulcer CM Notes Start: 06/14/18 10:19 Freq: Status: Active Protocol: Activity Type Activity Date Activity User E-Sign Co-Sign Detail Recorded Client Recorded Date Recorded By Document 06/14/18 11:26 [facility] [id number] 06/14/18 11:26 Document 06/28/18 10:49 [id number] 06/28/18 10:58 Document 07/05/18 10:35 [id number] 07/05/18 10:43 06/14/18 06/28/18 07/05/18 11:26 10:49 10:35 Wound Center Nurse 2 #1 RT ISCHIUM- POST OP -Time 11:26 10:49 10:36 -Correct Patient Yes Yes Yes -Correct Side, Site, Position Yes Yes Yes -Correct Procedure Yes Yes Yes -Procedure Performed Yes Yes Yes -Type of Procedure Debridement Debridement Debridement -Clinical Debridement Muscle Muscle Subcutaneous -Post Debridement Size (cm) - Length 8.5 8.8 8 -Post Debridement Size (cm) - Width 2.8 4.5 4.5 -Post Debridement Size (cm) - Depth 2.1 1.8 3.6 -Total Square Cm 23.80 39.60 36.0 -Wound/Ulcer Outcome Not Healed Not Healed Not Healed -Ulcer Cleansing Rinsed/ Rinsed/ Rinsed/ Irrigated with Irrigated with Irrigated with Saline Saline Saline -Foul Odor after Cleansing No No No -Bioengineered Tissue No No No -Bleeding Controlled with Pressure Pressure Pressure -Other 12:00-3.8cm -Offloading No No No -Treatment Response Procedure Procedure Procedure Tolerated Well Tolerated Well Tolerated Well Pain Scale: 0-10 Numeric Is Patient Pain Free? Yes Yes Yes Wound debrided: Sacral ulcer Type of Debridement: Excisional debridement Anesthesia Used: 4% Lidocaine Solution Depth: Down to and including healthy tissue, in the subcutaneous layer, to muscle Percentage of wound debrided: 100 Instrument Used: 7mm curette Tissue Removed: Subcutaneous tissue and slough Severity: Fat Layer Exposed Amount of bleeding with debridement: Mild Bleeding Controlled with: Pressure Patient tolerated procedure well Assessment/Plan Active Problems Right ischial pressure sore, stage 4 (Chronic) Paraplegia (Chronic) History of osteomyelitis (Chronic) Complicated wound infection (Acute) Assessment: 1. Right ischial pressure sore, stage IV. 2. Paraplegia. 3. Chronic refractory osteomyelitis. 4. s/p excision right ischial pressure sore, Stage IV, with partial ostectomy for osteomyelitis. Plan: Using Dakins solution 1-2 times daily which has improve the wound bed. A wound culture was obtained at his last visit on 05/17/18 that showed Enterococcus faecalis and Enterococcus avium. His Augmentin was stopped due to hives. A CT Pelvis was done on 11/07/17. It was suspicious for osteomyelitis. A repeat CT Pelvis was done on 05/17/18. Once again osteomyelitis is suspected and cannot be ruled out. Since osteomyelitis is still suspected despite surgery, wound care, and antibiotics, I feel he qualifies for chronic refractory osteomyelitis. He would benefit from HBO treatments for this. Prealbumin from 11/18/17 was 21.3. Encourage nutritional supplementation with protein to help the healing process. Because of the increased moisture and presence of some undermining, and the difficulty with po antibiotics, he may ultimately need IV antibiotics, additional operative debridement, and the use of the VAC. Before any additional surgery, would proceed with HBO treatments first. Patient and his family states they are not interested in a muscle flap for wound closure, a colostomy to help keep bacteria out of the wound or a PICC line for antibiotics. The Da kins is working well to improve the wound bed. Will continue to use it for the next several weeks. Once the wound bed is improve will try a wound VAC to help with the moisture. Ordered Sorbian Sachet dressings to help with absorption of drainage especially when he is out of bed. Follow up in 2-3 weeks. Code Visit 111xxx-113xx: 12197 Mirella musc/fascia 20 sq cm/< Add On Codes: 50265 Mirella musc/fascia add-on
== END 2018-07-11 23:59 ==
LOC: WC 10:00
PROVIDERS: Family Provider Preventive Medicine Occupational Medicine; PCP Preventive Medicine Occupational Medicine; Referring Provider Nurse Practitioner Family; Visit Provider Nurse Practitioner Family
DX: L89.214 Pressure ulcer of right hip, stage 4 (principal); G82.20 Paraplegia, unspecified; M86.68 Other chronic osteomyelitis, other site
CPT/HCPCS: 11043; 11046

== ENCOUNTER 2018-08-02 10:00 | Outpatient (RCR) | payer BC, MEDICARE, SELFPAY ==
[2018-07-12 01:11] VITALS: BP 117/76; PULSE 104; RESP 16; TEMP 36
[2018-08-02 10:12] VITALS: BP 100/68; PULSE 99; RESP 18; TEMP 35.5
--- NOTE | 2018-08-02 13:06 | PN.PCM_ITS ---
(1) Right ischial pressure sore, stage 4 Status: Chronic Current Visit: Yes Code(s): L89.314 - Pressure ulcer of right buttock, stage 4 (2) History of osteomyelitis Status: Chronic Current Visit: Yes Code(s): Z87.39 - Personal history of other diseases of the musculoskeletal system and connective tissue (3) Paraplegia Status: Chronic Current Visit: Yes Code(s): G82.20 - Paraplegia, unspecified Type of Wound Date of Service: 08/02/18 Chief Complaint: Right ischial pressure sore, Stage IV. History of Wound: Surgery 11/17/17 - Excision right ischial pressure sore, Stage IV, with partial ostectomy for osteomyelitis. Wound care -Dakin's solution. It has improved the bed of his ulcer to beefy red. Will apply for wound VAC and home health to help with wound VAC changes. Operative culture, bone and soft ti ssue - Enterobacter cloacae. Preop culture showed Staphylococcus haemolyticus and Aerococcus viridans. He was discharged on Vancomycin, and Levaquin, and Diflucan. Another wound culture from 01/11/18 showed Staphylococcus lentus and Granulicatella adiacens. He was started on Doxycycline and stopped it because of GI issues. Another wound culture was obtained on 03/29/18. It showed Citrobacter freundii, Enterococcus faecalis, Streptococcus mitis/orallis, and Corynebacterium minutissimum. He was started on Augmentin and Levaquin. He states he has stopped the Augmentin because of diarrhea. He finished the Levaquin. On 05/17/18, another wound culture was done because of persistent moisture in the ulcer. It showed Enterococcus faecalis and Enterococcus avium. He was started on Augmentin. He was encouraged to eat yogurt to minimize his GI issues. This was stopped because he broke out in hives. Prealbumin from 11/18/17 was 21.3. Encourage nutritional supplementation with protein to help the healing process. CT Pelvis was done on 11/07/17. It showed right buttocks and upper posterior thigh decubitus ulcer with granulation tissue and air pocket extending to the ischial tuberosity appear larger when compared to the previous study. There is osteosclerosis in the ischial tuberosity with irregular periosteal bone formation suggesting chronic osteomyelitis.. A repeat CT Pelvis was done on 05/17/18. It showed bony. irregularity about the right greater trochanter which is unchanged. There is a large right-sided decubitus ulcer. The possibility of osteomyelitis in the ischial tuberosity cannot be completely ruled out.. Today he denies fever. His appetite is good. The undermining in the ulcer is stable. The Dakin's has helped decrease the moisture in the ulcer along with Sorbian Sachet. Patient states he has been spending more time in bed to help decrease the amount of moisture. Family refusing PICC line for IV antibiotics. The family would like him to have the wound VAC. Refusing any further surgeries for debridement or a flap for closure. With his chronic refractory osteomyelitis, we are waiting on insurance approval for HBO treatments. Progress of Wound: Ulcer bed is beefy pink and improvement in periwound. - Physical Exam Vital Signs Temp Pulse Resp BP 96 F L 99 18 100/68 08/02/18 10:12 08/02/18 10:12 08/02/18 10:12 08/02/18 10:12 General: Alert, Oriented x3, Cooperative HEENT: Atraumatic Oral: Moist Mucosa Lungs: Normal air movement Cardiovascular: Regular rate Extremities: No edema, Capillary Refill Less than 3 Seconds Skin: Ulcer/ Wound - Stage IV right ischial ulcer. Wound Measurements and Assessment WC - Nurse 1 - General Ulcer Measurement Start: 07/30/18 16:29 Freq: Status: Active Protocol: Activity Type Activity Date Activity User E-Sign Co-Sign Detail Recorded Client Recorded Date Recorded By Document 08/02/18 10:12 DL [id number] 08/02/18 10:24 DL 08/02/18 10:12 Wound Center Nurse 1 [Ulcer Assessment] #1 RT ISCHIUM- POST OP -Current Size (cm) - Length 8 -Current Size (cm) - Width 5 -Current Size (cm) - Depth 1.8 -Total Square Cm 40 -Photo Taken No -Undermining/Tunneling Starts (O' 11 clock) -Undermining/Tunneling Ends (O'clock) 1 -Maximum Distance (cm) 4 -Exudate Amt Medium -Exudate Type Serosanguineous -Wound Margin Thickened & Rolled Under -Granulation Amt Large (67-100%) -Granulation Quality Red -Necrosis Amt None Present (0 %) -Structure Exposed N/A -Texture (Elizabeth-wound Skin Appearance) Scarring -Moisture (Elizabeth-wound Skin Appearance No Abnormality ) -Color (Elizabeth-wound Skin Appearance) No Abnormality -Ulcer Cleansing Wound Cleanser -Foul Odor after Cleansing No -Anesthetic Used 4% Lidocaine Solution WC - Nurse 2 - General Ulcer CM Notes Start: 07/30/18 16:29 Freq: Status: Active Protocol: Activity Type Activity Date Activity User E-Sign Co-Sign Detail Recorded Client Recorded Date Recorded By Document 08/02/18 11:12 [id number] 08/02/18 11:14 08/02/18 11:12 Wound Center Nurse 2 [Procedure/Treatment] -Time 11:12 -Correct Patient Yes -Correct Side, Site, Position Yes -Correct Procedure Yes -Procedure Performed Yes -Type of Procedure Debridement -Clinical Debridement Muscle -Post Debridement Size (cm) - Length 8.3 -Post Debridement Size (cm) - Width 4.4 -Post Debridement Size (cm) - Depth 4.0 -Total Square Cm 36.52 -Wound/Ulcer Outcome Not Healed -Ulcer Cleansing Rinsed/ Irrigated with Saline -Foul Odor after Cleansing No -Bioengineered Tissue No -Bleeding Controlled with Pressure -Offloading No -Treatment Response Procedure Tolerated Well [See Physician Procedure note for Specifics] Pain Scale: 0-10 Numeric [Pain] -Is Patient Pain Free? Yes Musculoskeletal: No Tenderness to Palpation of Joints or Extremities Neurological: Neuro grossly intact Psych/Mental Status: Normal Affect, Appropriate Debridement Note Post-Debridement Measurements/Treatment - Nurse 2 - General Ulcer CM Notes Start: 07/30/18 16:29 Freq: Status: Active Protocol: Activity Type Activity Date Activity User E-Sign Co-Sign Detail Recorded Client Recorded Date Recorded By Document 08/02/18 11:12 [id number] 08/02/18 11:14 08/02/18 11:12 Wound Center Nurse 2 #1 RT ISCHIUM- POST OP -Time 11:12 -Correct Patient Yes -Correct Side, Site, Position Yes -Correct Procedure Yes -Procedure Performed Yes -Type of Procedure Debridement -Clinical Debridement Muscle -Post Debridement Size (cm) - Length 8.3 -Post Debridement Size (cm) - Width 4.4 -Post Debridement Size (cm) - Depth 4.0 -Total Square Cm 36.52 -Wound/Ulcer Outcome Not Healed -Ulcer Cleansing Rinsed/ Irrigated with Saline -Foul Odor after Cleansing No -Bioengineered Tissue No -Bleeding Controlled with Pressure -Offloading No -Treatment Response Procedure Tolerated Well Pain Scale: 0-10 Numeric Is Patient Pain Free? Yes Wound debrided: Right ischial ulcer Laterality: Right Type of Debridement: Excisional debridement Anesthesia Used: 4% Lidocaine Solution Depth: Down to and including healthy tissue, in the subcutaneous layer Percentage of wound debrided: 100 Instrument Used: 7mm curette Tissue Removed: Subcutaneous tissue and slough Severity: Fat Layer Exposed Amount of bleeding with debridement: Mild Bleeding Controlled with: Pressure Patient tolerated procedure well Assessment/Plan Active Problems Right ischial pressure sore, stage 4 (Chronic) Paraplegia (Chronic) History of osteomyelitis (Chronic) Assessment: 1. Right ischial pressure sore, stage IV. 2. Paraplegia. 3. Chronic refractory osteomyelitis. 4. s/p excision right ischial pressure sore, Stage IV, with partial ostectomy for osteomyelitis. Plan: Using Dakins solution 1-2 times daily which has improve the wound bed. The Sorbian Sachet has helped with drainage but his insurance will only cover the smaller size so they have to use two of them at a time to cover the size of his ulcer. A wound culture was obtained on 05/17/18 that showed Enterococcus faecalis and Enterococcus avium. His Augmentin was stopped due to hives. A CT Pelvis was done on 11/07/17. It was suspicious for osteomyelitis. A repeat CT Pelvis was done on 05/17/18. Once again osteomyelitis is suspected and cannot be ruled out. Since osteomyelitis is still suspected despite surgery, wound care, and antibiotics, I feel he qualifies for chronic refractory osteomyelitis. He would benefit from HBO treatments for this. Prealbumin from 11/18/17 was 21.3. Encourage nutritional supplementation with protein to help the healing process. Because of the increased moisture and presence of some undermining, and the difficulty with po antibiotics, he may ultimately need IV antibiotics, additional operative debridement, and the use of the VAC. Before any additional surgery, would proceed with HBO treatments first. Patient and his family states they are not interested in a muscle flap for wound closure, a colostomy to help keep bacteria out of the wound or a PICC line for antibiotics. The Dakins has worked well to improve the bed of the ulcer. Ordered Sorbian Sachet dressings to help with absorption of drainage especially when he is out of bed. It does a good job with the drainage. Will order a wound VAC to be applied to the ulcer now that the ulcer bed is beefy pink. Will order home health to help with wound VAC changes three times per week. When the wound VAC is started will stop the Dakin's solution. Follow up in 2-3 weeks. Code Visit 111xxx-113xx: 95791 Mirella musc/fascia 20 sq cm/< Add On Codes: 73767 Mirella musc/fascia add-on
== END 2018-08-10 23:59 ==
LOC: WC 10:00
PROVIDERS: Family Provider Preventive Medicine Occupational Medicine; PCP Preventive Medicine Occupational Medicine; Referring Provider Nurse Practitioner Family; Visit Provider Nurse Practitioner Family
DX: L89.214 Pressure ulcer of right hip, stage 4 (principal); G82.20 Paraplegia, unspecified; Z87.39 Personal history of other diseases of the musculoskeletal system and connective tissue
CPT/HCPCS: 11043; 11046

== ENCOUNTER 2018-08-30 10:00 | Outpatient (RCR) | payer BC, MEDICARE, SELFPAY ==
[2018-08-11 01:15] VITALS: BP 100/68; PULSE 99; RESP 18; TEMP 35.5
[2018-08-16 10:11] VITALS: BP 107/66; PULSE 108; RESP 18; TEMP 36.5
--- NOTE | 2018-08-16 16:33 | PN.PCM_ITS ---
(1) Right ischial pressure sore, stage 4 Status: Chronic Code(s): L89.314 - Pressure ulcer of right buttock, stage 4 (2) Complicated wound infection Status: Chronic Code(s): T14.8 - Other injury of unspecified body region; L08.9 - Local infection of the skin and subcutaneous tissue, unspecified (3) Osteomyelitis of right side of pelvis Status: Chronic Code(s): M86.9 - Osteomyelitis, unspecified (4) Paraplegia Status: Chronic Code(s): G82.20 - Paraplegia, unspecified (5) Paraplegic immobility syndrome Status: Chronic Code(s): M62.3 - Immobility syndrome (paraplegic) Type of Wound Date of Service: 08/16/18 Chief Complaint: Right ischial pressure sore, Stage IV. History of Wound: Surgery 11/17/17 - Excision right ischial pressure sore, Stage IV, with partial ostectomy for osteomyelitis. Wound care -Dakin's solution. It has improved the bed of his ulcer to beefy red. Will apply for wound VAC and home health to help with wound VAC changes. Operative culture, bone and soft tissue - Enterobacter cloacae. Preop culture showed Staphylococcus haemolyticus and Aerococcus viridans. He was discharged on Vancomycin, and Levaquin, and Diflucan. Another wound culture from 01/11/18 showed Staphylococcus lentus and Granulicatella adiacens. He was started on Doxycycline and stopped it because of GI issues. Another wound culture was obtained on 03/29/18. It showed Citrobacter freundii, Enterococcus faecalis, Streptococcus mitis/orallis, and Corynebacterium minutissimum. He was started on Augmentin and Levaquin. He states he has stopped the Augmentin because of diarrhea. He finished the Levaquin. On 05/17/18, another wound culture was done because of persistent moisture in the ulcer. It showed Enterococcus faecalis and Enterococcus avium. He was started on Augmentin. He was encouraged to eat yogurt to minimize his GI issues. This was stopped because he broke out in hives. Prealbumin from 11/18/17 was 21.3. Encourage nutritional supplementation with protein to help the healing process. CT Pelvis was done on 11/07/17. It showed right buttocks and upper posterior thigh decubitus ulcer with granulation tissue and air pocket ex tending to the ischial tuberosity appear larger when compared to the previous study. There is osteosclerosis in the ischial tuberosity with irregular periosteal bone formation suggesting chronic osteomyelitis.. A repeat CT Pelvis was done on 05/17/18. It showed bony. irregularity about the right greater trochanter which is unchanged. There is a large right-sided decubitus ulcer. The possibility of osteomyelitis in the ischial tuberosity cannot be completely ruled out.. Today he denies fever. His appetite is good. The undermining in the ulcer is stable. The Dakin's has helped decrease the moisture in the ulcer along with Sorbian Sachet. Patient states he has been spending more time in bed to help decrease the amount of moisture. Family refusing PICC line for IV antibiotics. The family would like him to have the wound VAC. Will continue the wound VAC. Refusing any further surgeries for debridement or a flap for closure. Follow up in one week. With his chronic refractory osteo myelitis, we are waiting on insurance approval for HBO treatments. Progress of Wound: Ulcer bed is beefy pink and improvement in periwound. - Physical Exam Vital Signs Temp Pulse Resp BP 97.7 F L 108 H 18 107/66 08/16/18 10:11 08/16/18 10:11 08/16/18 10:11 08/16/18 10:11 General: Alert, Oriented x3, Cooperative HEENT: Atraumatic Oral: Moist Mucosa Lungs: Normal air movement Cardiovascular: Regular rate Extremities: No edema, Capillary Refill Less than 3 Seconds Skin: Ulcer/ Wound - Right ischial Stage IV ulcer Wound Measurements and Assessment WC - Nurse 1 - General Ulcer Measurement Start: 08/16/18 10:11 Freq: Status: Active Protocol: Activity Type Activity Date Activity User E-Sign Co-Sign Detail Recorded Client Recorded Date Recorded By Document 08/16/18 10:11 DL [id number] 08/16/18 10:30 DL 08/16/18 10:11 Wound Center Nurse 1 [Ulcer Assessment] #1 RT ISCHIUM- POST OP -Current Size (cm) - Length 7.2 -Current Size (cm) - Width 4 -Current Size (cm) - Depth 1.6 -Total Square Cm 28.8 -Undermining/Tunneling Yes -Undermining/Tunneling Starts (O' 9 clock) -Undermining/Tunneling Ends (O'clock) 12 -Maximum Distance (cm) 3.1 -Classification - Thickness Full Thickness with Exposed Support Structure -Exudate Amt Medium -Exudate Type Serosanguineous -Wound Margin Distinct, Outline Attached -Granulation Amt Large (67-100%) -Granulation Quality Red -Slough/Fibrin Yes -Necrosis Amt Small (1-33%) -Necrotic Tissue Type Adherent Slough -Structure Exposed Fat Layer Exposed -Texture (Elizabeth-wound Skin Appearance) Assessed -Moisture (Elizabeth-wound Skin Appearance Assessed ) -Color (Elizabeth-wound Skin Appearance) Assessed -Temperature (Elizabeth-wound Skin No Abnormality Appearance) (Pt Warm) -Tenderness on Palpation (Elizabeth-wound No Skin Appearance) -Ulcer Cleansing soap and water -Foul Odor after Cleansing No -Anesthetic Used 4% Lidocaine Solution WC - Nurse 2 - General Ulcer CM Notes Start: 08/16/18 10:11 Freq: Status: Active Protocol: Activity Type Activity Date Activity User E-Sign Co-Sign Detail Recorded Client Recorded Date Recorded By Document 08/16/18 10:58 [id number] 08/16/18 11:00 LIANE 08/16/18 10:58 Wound Center Nurse 2 [Procedure/Treatment] -Time 10:59 -Correct Patient Yes -Correct Side, Site, Position Yes -Correct Procedure Yes -Procedure Performed Yes -Type of Procedure Debridement -Clinical Debridement Muscle -Post Debridement Size (cm) - Length 8.7 -Post Debridement Size (cm) - Width 4 -Post Debridement Size (cm) - Depth 1.7 -Total Square Cm 34.8 -Wound/Ulcer Outcome Not Healed -Ulcer Cleansing Rinsed/ Irrigated with Saline -Foul Odor after Cleansing No -Bioengineered Tissue No -Bleeding Controlled with Pressure -Other tunnel--3.3cm -Offloading No -Treatment Response Procedure Tolerated Well [See Physician Procedure note for Specifics] Pain Scale: 0-10 Numeric [Pain] -Is Patient Pain Free? Yes Musculoskeletal: No Tenderness to Palpation of Joints or Extremities Neurological: Cranial nerves II-XII grossly intact Psych/Mental Status: Normal Affect, Appropriate Debridement Note Post-Debridement Measurements/Treatment WC - Nurse 2 - General Ulcer CM Notes Start: 08/16/18 10:11 Freq: Status: Active Protocol: Activity Type Activity Date Activity User E-Sign Co-Sign Detail Recorded Client Recorded Date Recorded By Document 08/16/18 10:58 LIANE [id number] 08/16/18 11:00 LIANE 08/16/18 10:58 Wound Center Nurse 2 #1 RT ISCHIUM- POST OP -Time 10:59 -Correct Patient Yes -Correct Side, Site, Position Yes -Correct Procedure Yes -Procedure Performed Yes -Type of Procedure Debridement -Clinical Debridement Muscle -Post Debridement Size (cm) - Length 8.7 -Post Debridement Size (cm) - Width 4 -Post Debridement Size (cm) - Depth 1.7 -Total Square Cm 34.8 -Wound/Ulcer Outcome Not Healed -Ulcer Cleansing Rinsed/ Irrigated with Saline -Foul Odor after Cleansing No -Bioengineered Tissue No -Bleeding Controlled with Pressure -Other tunnel--3.3cm -Offloading No -Treatment Response Procedure Tolerated Well Pain Scale: 0-10 Numeric Is Patient Pain Free? Yes Wound debrided: Right Ischial ulcer Wound Grade/Stage: Stage IV Type of Debridement: Excisional debridement Anesthesia Used: 4% Lidocaine Solution Depth: Down to and including healthy tissue, in the subcutaneous layer, to muscle Percentage of wound debrided: 100 Instrument Used: 7mm curette Tissue Removed: Subcutaneous tissue and slough Severity: Fat Layer Exposed Amount of bleeding with debridement: Mild Bleeding Controlled with: Pressure Patient tolerated procedure well Assessment/Plan Assessment: 1. Right ischial pressure sore, stage IV. 2. Paraplegia. 3. Chronic refractory osteomyelitis. 4. s/p excision right ischial pressure sore, Stage IV, with partial ostectomy for osteomyelitis. Plan: Tolerating the wound VAC at 150 mmHg. A wound culture was obtained on 05/17/18 that showed Enterococcus faecalis and Enterococcus avium. His Augmentin was stopped due to hives. A CT Pelvis was done on 11/07/17. It was suspicious for osteomyelitis. A repeat CT Pelvis was done on 05/17/18. Once again osteomyelitis is suspected and cannot be ruled out. Since osteomyelitis is still suspected despite surgery, wound care, and antibiotics, I feel he qualifies for chronic refractory osteomyelitis. He would benefit from HBO treatments for this. Prealbumin from 11/18/17 was 21.3. Encourage nutritional supplementation with protein to help the healing process. Because of the increased moisture and presence of some undermining, and the difficulty with po antibiotics, he may ultimately need IV antibiotics, additional operative debridement, and the use of the VAC. Before any additional surgery, would proceed with HBO treatments first. Patient and his family states they are not interested in a muscle flap for wound closure, a colostomy to help keep bacteria out of the wound or a PICC line for antibiotics. The Dakins has worked well to improve the bed of the ulcer. Ordered Sorbian Sachet dressings to help with absorption of drainage especially when he is out of bed. It does a good job with the drainage. Wound VAC to be applied to the ulcer now that the ulcer bed is beefy pink. Home health to help with wound VAC changes three times per week. Follow up in 1 week. Code Visit [id number]: [id number] Mirella musc/fascia 20 sq cm/< Add On Codes: 34984 Mirella musc/fascia add-on - x 7
[2018-08-30 10:15] VITALS: BP 85/64; PULSE 93; RESP 18; TEMP 35.7
--- NOTE | 2018-08-30 20:05 | PCM.WC.PN ---
Type of Wound Date of Service: 08/30/18 Chief Complaint: Right ischial pressure sore, Stage IV. History of Wound: Surgery 11/17/17 - Excision right ischial pressure sore, Stage IV, with partial ostectomy for osteomyelitis. Wound care -VAC. Operative culture, bone and soft tissue - Enterobacter cloacae. Preop culture showed Staphylococcus haemolyticus and Aerococcus viridans. He was discharged on Vancomycin, and Levaquin, and Diflucan. Another wound culture from 01/11/18 showed Staphylococcus lentus and Granulicatella adiacens. He was started on Doxycycline and stopped it because of GI issues. Another wound culture was obtained on 03/29/18. It showed Citrobacter freundii, Enterococcus faecalis, Streptococcus mitis/orallis, and Corynebacterium minutissimum. He was started on Augmentin and Levaquin. He states he has stopped the Augmentin because of diarrhea. He finished the Levaquin. On 05/17/18, another wound culture was done because of persistent moisture in the ulcer. It showed Enterococcus faecalis and Enterococcus avium. He was started on Augmentin. He was encouraged to eat yogurt to minimize his GI issues. This was stopped because he broke out in hives. He is not interested in IV antibiotics at this time. Prealbumin from 11/18/17 was 21.3. Encourage nutritional supplementation with protein to help the healing process. CT Pelvis was done on 11/07/17. It showed right buttocks and upper posterior thigh decubitus ulcer with granulation tissue and air pocket extending to the ischial tuberosity appear larger when compared to the previous study. There is osteosclerosis in the ischial tuberosity with irregular periosteal bone formation suggesting chronic osteomyelitis.. A repeat CT Pelvis was done on 05/17/18. It showed bony irregularity about the right greater trochanter which is unchanged. There is a large right-sided decubitus ulcer. The possibility of osteomyelitis in the ischial tuberosity cannot be completely ruled out.. Today he denies fever. His appetite is good. The undermining in the ulcer is stable. Patient states he has been spending more time in bed to help decrease the amount of moisture. Family refusing PICC line for IV antibiotics. Refusing any further surgeries for debridement or a flap for closure. With his chronic refractory osteomyelitis, we are waiting on insurance approval for HBO treatments. Progress of Wound: Improved. - Physical Exam Vital Signs Temp Pulse Resp BP 96.2 F L 93 18 85/64 L 08/30/18 10:15 08/30/18 10:15 08/30/18 10:15 08/30/18 10:15 Wound Measurements and Assessment WC - Nurse 1 - General Ulcer Measurement Start: 08/16/18 10:11 Freq: Status: Active Protocol: Activity Type Activity Date Activity User E-Sign Co-Sign Detail Recorded Client Recorded Date Recorded By Document 08/30/18 10:15 AN [id number] 08/30/18 10:39 AN 08/30/18 10:15 Wound Center Nurse 1 [Ulcer Assessment] #1 RT ISCHIUM- POST OP -Current Size (cm) - Length 8.0 -Current Size (cm) - Width 5.0 -Current Size (cm) - Depth 1.2 -Total Square Cm 40.00 -Date of Last Picture (Recall this 08/30/18 field) -Photo Taken Yes -Undermining/Tunneling Yes -Undermining/Tunneling Starts (O' 11 clock) -Undermining/Tunneling Ends (O'clock) 1 -Maximum Distance (cm) 2.6 -Circular Undermining No -Classification - Thickness Full Thickness with Exposed Support Structure -Exudate Amt Medium -Exudate Type Serosanguineous -Wound Margin Distinct, Outline Attached -Granulation Amt Large (67-100%) -Granulation Quality Red -Slough/Fibrin Yes -Necrosis Amt Small (1-33%) -Necrotic Tissue Type Adherent Slough -Structure Exposed Bone -Texture (Elizabeth-wound Skin Appearance) Assessed -Moisture (Elizabeth-wound Skin Appearance Assessed ) Maceration -Color (Elizabeth-wound Skin Appearance) Assessed -Temperature (Elizabeth-wound Skin No Abnormality Appearance) (Pt Warm) -Tenderness on Palpation (Elizabeth-wound No Skin Appearance) -Ulcer Cleansing Rinsed/ Irrigated with Saline -Foul Odor after Cleansing No -Anesthetic Used 4% Lidocaine Solution WC - Nurse 2 - General Ulcer CM Notes Start: 08/16/18 10:11 Freq: Status: Active Protocol: Activity Type Activity Date Activity User E-Sign Co-Sign Detail Recorded Client Recorded Date Recorded By Document 08/30/18 11:04 LIANE [id number] 08/30/18 11:07 LIANE 08/30/18 11:04 Wound Center Nurse 2 [Procedure/Treatment] -Time 11:04 -Correct Patient Yes -Correct Side, Site, Position Yes -Correct Procedure Yes -Procedure Performed Yes -Type of Procedure Debridement -Clinical Debridement Muscle -Post Debridement Size (cm) - Length 6.5 -Post Debridement Size (cm) - Width 4.0 -Post Debridement Size (cm) - Depth 3.2 -Total Square Cm 26.00 -Wound/Ulcer Outcome Not Healed -Ulcer Cleansing Rinsed/ Irrigated with Saline -Foul Odor after Cleansing No -Bioengineered Tissue No -Bleeding Controlled with Pressure -Other undermine: 12: 00 3.9cm -Offloading No -Treatment Response Procedure Tolerated Well [See Physician Procedure note for Specifics] Pain Scale: 0-10 Numeric [Pain] -Is Patient Pain Free? Yes Debridement Note Post-Debridement Measurements/Treatment WC - Nurse 2 - General Ulcer CM Notes Start: 08/16/18 10:11 Freq: Status: Active Protocol: Activity Type Activity Date Activity User E-Sign Co-Sign Detail Recorded Client Recorded Date Recorded By Document 08/16/18 10:58 [id number] 08/16/18 11:00 Document 08/30/18 11:04 [id number] 08/30/18 11:07 08/16/18 08/30/18 10:58 11:04 Wound Center Nurse 2 #1 RT ISCHIUM- POST OP -Time 10:59 11:04 -Correct Patient Yes Yes -Correct Side, Site, Position Yes Yes -Correct Procedure Yes Yes -Procedure Performed Yes Yes -Type of Procedure Debridement Debridement -Clinical Debridement Muscle Muscle -Post Debridement Size (cm) - Length 8.7 6.5 -Post Debridement Size (cm) - Width 4 4.0 -Post Debridement Size (cm) - Depth 1.7 3.2 -Total Square Cm 34.8 26.00 -Wound/Ulcer Outcome Not Healed Not Healed -Ulcer Cleansing Rinsed/ Rinsed/ Irrigated with Irrigated with Saline Saline -Foul Odor after Cleansing No No -Bioengineered Tissue No No -Bleeding Controlled with Pressure Pressure -Other tunnel--3.3cm undermine: 12: 00 3.9cm -Offloading No No -Treatment Response Procedure Procedure Tolerated Well Tolerated Well Pain Scale: 0-10 Numeric Is Patient Pain Free? Yes Yes Wound debrided: #1 Right ischial area. Laterality: Right Wound Grade/Stage: IV. Type of Debridement: Excisional debridement Anesthesia Used: 4% Lidocaine Solution Depth: Down to and including healthy tissue, in the subcutaneous layer, to muscle, to bone - bone is palpable but not debrided. Percentage of wound debrided: 100 Instrument Used: 7mm curette Tissue Removed: subcutaneous tissue and muscle. Severity: Fat Layer Exposed - muscle is exposed. bone is palpable but not debrided. Amount of bleeding with debridement: Mild Bleeding Controlled with: Pressure Patient tolerated procedure well Assessment/Plan Assessment: 1. Right ischial pressure sore, stage IV. 2. Paraplegia. 3. Chronic refractory osteomyelitis. 4. s/p excision right ischial pressure sore, Stage IV, with partial ostectomy for osteomyelitis. Plan: Tolerating the wound VAC at 150 mmHg. A wound culture was obtained on 05/17/18 that showed Enterococcus faecalis and Enterococcus avium. His Augmentin was stopped due to hives. A CT Pelvis was done on 11/07/17. It was suspicious for osteomyelitis. A repeat CT Pelvis was done on 05/17/18. Once again osteomyelitis is suspected and cannot be ruled out. Since osteomyelitis is still suspected despite surgery, wound care, and antibiotics, I feel he qualifies for chronic refractory osteomyelitis. He would benefit from HBO treatments for this. Prealbumin from 11/18/17 was 21.3. Encourage nutritional supplementation with protein to help the healing process. Because of the increased moisture and presence of some undermining, and the difficulty with po antibiotics, he may ultimately need IV antibiotics and additional operative debridement. Before any additional surgery, would proceed with HBO treatments first. Patient and his family states they are not interested in a muscle flap for wound closure, a colostomy to help keep bacteria out of the wound or a PICC line for antibiotics. three times per week. Follow up 2 weeks.
== END 2018-09-10 23:59 ==
LOC: WC 10:00
PROVIDERS: Family Provider Preventive Medicine Occupational Medicine; PCP Preventive Medicine Occupational Medicine; Referring Provider Nurse Practitioner Family; Visit Provider Nurse Practitioner Family
DX: L89.214 Pressure ulcer of right hip, stage 4 (principal); G82.20 Paraplegia, unspecified; M86.68 Other chronic osteomyelitis, other site
CPT/HCPCS: 11043; 11046; 97605

== ENCOUNTER 2018-09-20 10:01 | Outpatient (RCR) | payer BC, MEDICARE, SELFPAY ==
[2018-09-11 00:51] VITALS: BP 85/64; PULSE 93; RESP 18; TEMP 35.7
[2018-09-20 11:02] VITALS: BP 84/55; PULSE 98; RESP 18; TEMP 36.4
--- NOTE | 2018-09-20 22:39 | PCM.WC.PN ---
Type of Wound Date of Service: 09/20/18 Chief Complaint: Right ischial pressure sore, Stage IV. History of Wound: Surgery 11/17/17 - Excision right ischial pressure sore, Stage IV, with partial ostectomy for osteomyelitis. Wound care -VAC. Cleansing the wound with Dakin's. Operative culture, bone and soft tissue - Enterobacter cloacae. Preop culture showed Staphylococcus haemolyticus and Aerococcus viridans. He was discharged on Vancomycin, and Levaquin, and Diflucan. Another wound culture from 01/11/18 showed Staphylococcus lentus and Granulicatella adiacens. He was started on Doxycycline and stopped it because of GI issues. Another wound culture was obtained on 03/29/18. It showed Citrobacter freundii, Enterococcus faecalis, Streptococcus mitis/orallis, and Corynebacterium minutissimum. He was started on Augmentin and Levaquin. He states he has stopped the Augmentin because of diarrhea. He finished the Levaquin. On 05/17/18, another wound culture was done because of persistent moisture in the ulcer. It showed Enterococcus faecalis and Enterococcus avium. He was started on Augmentin. He was encouraged to eat yogurt to minimize his GI issues. This was stopped because he broke out in hives. He is not interested in IV antibiotics at this time. Prealbumin from 11/18/17 was 21.3. Encourage nutritional supplementation with protein to help the healing process. CT Pelvis was done on 11/07/17. It showed right buttocks and upper posterior thigh decubitus ulcer with granulation tissue and air pocket extending to the ischial tuberosity appear larger when compared to the previous study. There is osteosclerosis in the ischial tuberosity with irregular periosteal bone formation suggesting chronic osteomyelitis.. A repeat CT Pelvis was done on 05/17/18. It showed bony irregularity about the right greater trochanter which is unchanged. There is a large right-sided decubitus ulcer. The possibility of osteomyelitis in the ischial tuberosity cannot be completely ruled out. Today he denies fever. His appetite is good. The undermining in the ulcer is stable. Patient states he has been spending more time in bed to help decrease the amount of moisture. Family refusing PICC line for IV antibiotics. Refusing any further surgeries for debridement or a flap for closure. With his chronic refractory osteomyelitis, we are waiting on insurance approval for HBO treatments. Progress of Wound: Improved. - Physical Exam Vital Signs Temp Pulse Resp BP 97.5 F L 98 18 84/55 L 09/20/18 11:02 09/20/18 11:02 09/20/18 11:02 09/20/18 11:02 Wound Measurements and Assessment WC - Nurse 1 - General Ulcer Measurement Start: 09/20/18 11:02 Freq: Status: Active Protocol: Activity Type Activity Date Activity User E-Sign Co-Sign Detail Recorded Client Recorded Date Recorded By Document 09/20/18 11:02 DL [id number] 09/20/18 11:17 DL 09/20/18 11:02 Wound Center Nurse 1 [Ulcer Assessment] #1 RT ISCHIUM- POST OP -Current Size (cm) - Length 7.2 -Current Size (cm) - Width 4.5 -Current Size (cm) - Depth 2.2 -Total Square Cm 32.40 -Photo Taken No -Tunneling Yes -Tunneling Position (O'clock) 6 -Tunneling Distance (cm) 3.6 -Exudate Amt Medium -Exudate Type Sanguineous -Wound Margin Thickened & Rolled Under -Granulation Amt Large (67-100%) -Granulation Quality Red -Necrosis Amt Small (1-33%) -Necrotic Tissue Type Adherent Slough -Structure Exposed N/A -Texture (Elizabeth-wound Skin Appearance) Scarring -Moisture (Elizabeth-wound Skin Appearance Maceration ) -Color (Elizabeth-wound Skin Appearance) Rubor -Temperature (Elizabeth-wound Skin No Abnormality Appearance) (Pt Warm) -Tenderness on Palpation (Elizabeth-wound No Skin Appearance) -Ulcer Cleansing Wound Cleanser -Foul Odor after Cleansing No -Anesthetic Used 4% Lidocaine Solution WC - Nurse 2 - General Ulcer CM Notes Start: 09/20/18 11:02 Freq: Status: Active Protocol: Activity Type Activity Date Activity User E-Sign Co-Sign Detail Recorded Client Recorded Date Recorded By Document 09/20/18 11:48 LIANE [id number] 09/20/18 11:51 LIANE 09/20/18 11:48 Wound Center Nurse 2 [Procedure/Treatment] -Time 11:49 -Correct Patient Yes -Correct Side, Site, Position Yes -Correct Procedure Yes -Procedure Performed Yes -Type of Procedure Debridement -Clinical Debridement Muscle -Post Debridement Size (cm) - Length 7 -Post Debridement Size (cm) - Width 4.5 -Post Debridement Size (cm) - Depth 2.2 -Total Square Cm 31.5 -Wound/Ulcer Outcome Not Healed -Ulcer Cleansing Rinsed/ Irrigated with Saline -Foul Odor after Cleansing No -Bioengineered Tissue No -Bleeding Controlled with Pressure -Other tunnel at 12:00 ---3.7cm -Offloading No -Treatment Response Procedure Tolerated Well [See Physician Procedure note for Specifics] Pain Scale: 0-10 Numeric [Pain] -Is Patient Pain Free? Yes Debridement Note Post-Debridement Measurements/Treatment WC - Nurse 2 - General Ulcer CM Notes Start: 09/20/18 11:02 Freq: Status: Active Protocol: Activity Type Activity Date Activity User E-Sign Co-Sign Detail Recorded Client Recorded Date Recorded By Document 09/20/18 11:48 LIANE [id number] 09/20/18 11:51 LIANE 09/20/18 11:48 Wound Center Nurse 2 #1 RT ISCHIUM- POST OP -Time 11:49 -Correct Patient Yes -Correct Side, Site, Position Yes -Correct Procedure Yes -Procedure Performed Yes -Type of Procedure Debridement -Clinical Debridement Muscle -Post Debridement Size (cm) - Length 7 -Post Debridement Size (cm) - Width 4.5 -Post Debridement Size (cm) - Depth 2.2 -Total Square Cm 31.5 -Wound/Ulcer Outcome Not Healed -Ulcer Cleansing Rinsed/ Irrigated with Saline -Foul Odor after Cleansing No -Bioengineered Tissue No -Bleeding Controlled with Pressure -Other tunnel at 12:00 ---3.7cm -Offloading No -Treatment Response Procedure Tolerated Well Pain Scale: 0-10 Numeric Is Patient Pain Free? Yes Wound debrided: #1 Right ischial area. Laterality: Right Wound Grade/Stage: IV. Type of Debridement: Excisional debridement Anesthesia Used: 4% Lidocaine Solution Depth: Down to and including healthy tissue, in the subcutaneous layer, to muscle, to bone - bone is palpable but not debrided. Percentage of wound debrided: 100 Instrument Used: 7mm curette Tissue Removed: subcutaneous tissue and muscle. Severity: Fat Layer Exposed - muscle is exposed. bone is palpable but not debrided. Amount of bleeding with debridement: Mild Bleeding Controlled with: Pressure Patient tolerated procedure well Assessment/Plan Assessment: 1. Right ischial pressure sore, stage IV. 2. Paraplegia. 3. Chronic refractory osteomyelitis. 4. s/p excision right ischial pressure sore, Stage IV, with partial ostectomy for osteomyelitis. Plan: Tolerating the wound VAC at 150 mmHg. The wound is cleansed with Dakin's prior to the VAC placement. A wound culture was obtained on 05/17/18 that showed Enterococcus faecalis and Enterococcus avium. His Augmentin was stopped due to hives. A CT Pelvis was done on 11/07/17. It was suspicious for osteomyelitis. A repeat CT Pelvis was done on 05/17/18. Once again osteomyelitis is suspected and cannot be ruled out. Since osteomyelitis is still suspected despite surgery, wound care, and antibiotics, I feel he qualifies for chronic refractory osteomyelitis. He would benefit from HBO treatments for this. Prealbumin from 11/18/17 was 21.3. Encourage nutritional supplementation with protein to help the healing process. Because of the increased moisture and presence of some undermining, and the difficulty with po antibiotics, he may ultimately need IV antibiotics and additional operative debridement. Before any additional surgery, would proceed with HBO treatments first. Patient and his family states they are not interested in a muscle flap for wound closure, a colostomy to help keep bacteria out of the wound or a PICC line for antibiotics. three times per week. Follow up 3 weeks.
== END 2018-10-10 23:59 ==
LOC: WC 10:01
PROVIDERS: Family Provider Preventive Medicine Occupational Medicine; PCP Preventive Medicine Occupational Medicine; Referring Provider Nurse Practitioner Family; Visit Provider Nurse Practitioner Family
DX: L89.214 Pressure ulcer of right hip, stage 4 (principal); G82.20 Paraplegia, unspecified; M86.68 Other chronic osteomyelitis, other site
CPT/HCPCS: 11043; 11046; 97605

== ENCOUNTER → 2018-10-18 | Outpatient (CLI) | payer BC, MEDICARE, SELFPAY | END | disposition home or self-care (01) | PROVIDERS: Family Provider Preventive Medicine Occupational Medicine; PCP Preventive Medicine Occupational Medicine; Referring Provider Nurse Practitioner Adult Health; Visit Provider Nurse Practitioner Adult Health | DX: N39.0 Urinary tract infection, site not specified (principal) | CPT/HCPCS: 87077; 87086; 87088; 87186 ==

== ENCOUNTER 2018-11-01 10:30 | Outpatient (RCR) | payer BC, MEDICARE, SELFPAY ==
[2018-10-11 00:36] VITALS: BP 84/55; PULSE 98; RESP 18; TEMP 36.4
[2018-10-11 10:50] VITALS: BP 110/54; PULSE 84; RESP 16; TEMP 36.5
--- NOTE | 2018-10-11 11:17 | PCM.WC.PN ---
(1) Right ischial pressure sore, stage 4 Status: Chronic Current Visit: Yes Code(s): L89.314 - Pressure ulcer of right buttock, stage 4 (2) Paraplegia Status: Chronic Current Visit: Yes Code(s): G82.20 - Paraplegia, unspecified (3) History of osteomyelitis Status: Chronic Current Visit: Yes Code(s): Z87.39 - Personal history of other diseases of the musculoskeletal system and connective tissue (4) Paraplegic immobility syndrome Status: Chronic Current Visit: Yes Code(s): M62.3 - Immobility syndrome (paraplegic) Type of Wound Date of Service: 10/11/18 Chief Complaint: Right ischial pressure sore, Stage IV. History of Wound: Surgery 11/17/17 - Excision right ischial pressure sore, Stage IV, with partial ostectomy for osteomyelitis. Wound care -Dakin's solution. It has improved the bed of his ulcer to beefy red. Will apply for wound VAC and home health to help with wound VAC changes. Operative culture, bone and soft tissue - Enterobacter cloacae. Preop culture showed Staphylococcus haemolyticus and Aerococcus viridans. He was discharged on Vancomycin, and Levaquin, and Diflucan. Another wound culture from 01/11/18 showed Staphylococcus lentus and Granulicatella adiacens. He was started on Doxycycline and stopped it because of GI issues. Another wound culture was obtained on 03/29/18. It showed Citrobacter freundii, Enterococcus faecalis, Streptococcus mitis/orallis, and Corynebacterium minutissimum. He was started on Augmentin and Levaquin. He states he has stopped the Augmentin because of diarrhea. He finished the Levaquin. On 05/17/18, another wound culture was done because of persistent moisture in the ulcer. It showed Enterococcus faecalis and Enterococcus avium. He was started on Augmentin. He was encouraged to eat yogurt to minimize his GI issues. This was stopped because he broke out in hives. Prealbumin from 11/18/17 was 21.3. Encourage nutritional supplementation with protein to help the healing process. CT Pelvis was done on 11/07/17. It showed right buttocks and upper posterior thigh decubitus ulcer with granulation tissue and air pocket extending to the ischial tuberosity appear larger when compared to the previous study. There is osteosclerosis in the ischial tuberosity with irregular periosteal bone formation suggesting chronic osteomyelitis.. A repeat CT Pelvis was done on 05/17/18. It showed bony. irregularity about the right greater trochanter which is unchanged. There is a large right-sided decubitus ulcer. The possibility of osteomyelitis in the ischial tuberosity cannot be completely ruled out.. Today he denies fever. His appetite is good. The undermining in the ulcer is stable. The Dakin's has helped decrease the moisture in the ulcer along with Sorbian Sachet. Patient states he has been spending more time in bed to help decrease the amount of moisture. Family refusing PICC line for IV antibiotics. The family would like him to have the wound VAC. Will continue the wound VAC. Refusing any further surgeries for debridement or a flap for closure. Follow up in one week. With his chronic refractory osteomyelitis, we are waiting on insurance approval for HBO treatments. Progress of Wound: Ulcer bed is beefy pink and periwound looks good. - Physical Exam Vital Signs Temp Pulse Resp BP 97.7 F L 84 16 110/54 L 10/11/18 10:50 10/11/18 10:50 10/11/18 10:50 10/11/18 10:50 General: Alert, Oriented x3, Cooperative HEENT: Atraumatic, PERRLA Oral: Moist Mucosa Lungs: Normal air movement Cardiovascular: Regular rate Extremities: No edema, Capillary Refill Less than 3 Seconds, Peripheral Pulses Normal Skin: Ulcer/ Wound - Right ischial ulcer Wound Measurements and Assessment WC - Nurse 1 - General Ulcer Measurement Start: 10/11/18 10:50 Freq: Status: Active Protocol: Activity Type Activity Date Activity User E-Sign Co-Sign Detail Recorded Client Recorded Date Recorded By Document 10/11/18 10:50 [id number] 10/11/18 11:03 10/11/18 10:50 Wound Center Nurse 1 [Ulcer Assessment] #1 RT ISCHIUM- POST OP -Combined with other wound No -Current Size (cm) - Length 6.5 -Current Size (cm) - Width 3.9 -Current Size (cm) - Depth 1.1 -Total Square Cm 25.35 -Photo Taken No -Undermining/Tunneling Yes -Undermining/Tunneling Starts (O' 10 clock) -Undermining/Tunneling Ends (O'clock) 12 -Maximum Distance (cm) 2.7 -Circular Undermining No -Exudate Amt Medium -Exudate Type Sanguineous -Wound Margin Distinct, Outline Attached -Granulation Amt Large (67-100%) -Granulation Quality Red -Slough/Fibrin Yes -Necrotic Tissue Type Adherent Slough -Structure Exposed Fat Layer Exposed -Texture (Elizabeth-wound Skin Appearance) Scarring -Moisture (Elizabeth-wound Skin Appearance No Abnormality, ) Assessed -Color (Elizabeth-wound Skin Appearance) No Abnormality, Assessed -Temperature (Elizabeth-wound Skin No Abnormality Appearance) (Pt Warm) -Tenderness on Palpation (Elizabeth-wound No Skin Appearance) -Foul Odor after Cleansing No -Anesthetic Used 5% Lidocaine Gel [Edema Assessment] -Lower Limb Edema Present NA - Nurse 2 - General Ulcer CM Notes Start: 10/11/18 10:50 Freq: Status: Active Protocol: Activity Type Activity Date Activity User E-Sign Co-Sign Detail Recorded Client Recorded Date Recorded By Document 10/11/18 11:20 [id number] 10/11/18 11:23 10/11/18 11:20 Wound Center Nurse 2 [Procedure/Treatment] #1 RT ISCHIUM- POST OP -Time 11:20 -Correct Patient Yes -Correct Side, Site, Position Yes -Correct Procedure Yes -Procedure Performed Yes -Type of Procedure Debridement -Clinical Debridement Muscle -Post Debridement Size (cm) - Length 6 -Post Debridement Size (cm) - Width 3.5 -Post Debridement Size (cm) - Depth 1.9 -Total Square Cm 21.0 -Wound/Ulcer Outcome Not Healed -Ulcer Cleansing Rinsed/ Irrigated with Saline -Foul Odor after Cleansing No -Bioengineered Tissue No -Bleeding Controlled with Pressure -Other tunnel at 12:00 ---2.7cm -Offloading No -Treatment Response Procedure Tolerated Well [See Physician Procedure note for Specifics] Pain Scale: 0-10 Numeric [Pain] -Is Patient Pain Free? Yes Musculoskeletal: No Tenderness to Palpation of Joints or Extremities Neurological: Cranial nerves II-XII grossly intact Psych/Mental Status: Normal Affect, Appropriate Debridement Note Post-Debridement Measurements/Treatment - Nurse 2 - General Ulcer CM Notes Start: 10/11/18 10:50 Freq: Status: Active Protocol: Activity Type Activity Date Activity User E-Sign Co-Sign Detail Recorded Client Recorded Date Recorded By Document 10/11/18 11:20 [id number] 10/11/18 11:23 LIANE 10/11/18 11:20 Wound Center Nurse 2 #1 RT ISCHIUM- POST OP -Time 11:20 -Correct Patient Yes -Correct Side, Site, Position Yes -Correct Procedure Yes -Procedure Performed Yes -Type of Procedure Debridement -Clinical Debridement Muscle -Post Debridement Size (cm) - Length 6 -Post Debridement Size (cm) - Width 3.5 -Post Debridement Size (cm) - Depth 1.9 -Total Square Cm 21.0 -Wound/Ulcer Outcome Not Healed -Ulcer Cleansing Rinsed/ Irrigated with Saline -Foul Odor after Cleansing No -Bioengineered Tissue No -Bleeding Controlled with Pressure -Other tunnel at 12:00 ---2.7cm -Offloading No -Treatment Response Procedure Tolerated Well Pain Scale: 0-10 Numeric Is Patient Pain Free? Yes Wound debrided: Right ischial stage IV ulcer Type of Debridement: Excisional debridement Anesthesia Used: 4% Lidocaine Solution Depth: Down to and including healthy tissue, in the subcutaneous layer, to muscle Percentage of wound debrided: 100 Instrument Used: 7mm curette Tissue Removed: Subcutaneous tissue and slough Severity: Fat Layer Exposed Amount of bleeding with debridement: Mild Bleeding Controlled with: Pressure Patient tolerated procedure well Assessment/Plan Active Problems Right ischial pressure sore, stage 4 (Chronic) Paraplegia (Chronic) History of osteomyelitis (Chronic) Paraplegic immobility syndrome (Chronic) Assessment: 1. Right ischial pressure sore, stage IV. 2. Paraplegia. 3. Chronic refractory osteomyelitis. 4. s/p excision right ischial pressure sore, Stage IV, with partial ostectomy for osteomyelitis. Plan: Tolerating the wound VAC at 150 mmHg. A wound culture was obtained on 05/17/18 that showed Enterococcus faecalis and Enterococcus avium. His Augmentin was stopped due to hives. A CT Pelvis was done on 11/07/17. It was suspicious for osteomyelitis. A repeat CT Pelvis was done on 05/17/18. Once again osteomyelitis is suspected and cannot be ruled out. Since osteomyelitis is still suspected despite surgery, wound care, and antibiotics, I feel he qualifies for chronic refractory osteomyelitis. He would benefit from HBO treatments for this. Prealbumin from 11/18/17 was 21.3. Encourage nutritional supplementation with protein to help the healing process. Because of the increased moisture and presence of some undermining, and the difficulty with po antibiotics, he may ultimately need IV antibiotics, additional operative debridement, and the use of the VAC. Before any additional surgery, would proceed with HBO treatments first. Patient and his family states they are not interested in a muscle flap for wound closure, a colostomy to help keep bacteria out of the wound or a PICC line for antibiotics. Wound VAC to be applied to the ulcer now that the ulcer bed is beefy pink. They are cleaning wound with Dakin's between wound VAC changes. Home health to help with wound VAC changes three times per week. Follow up in 3 weeks. Code Visit [id number]: [id number] Mirella musc/fascia 20 sq cm/< Add On Codes: 48989 Mirella musc/fascia add-on
[2018-11-01 10:33] VITALS: BP 107/72; PULSE 77; RESP 18; TEMP 35.7
--- NOTE | 2018-11-01 12:55 | PN.PCM_ITS ---
(1) Right ischial pressure sore, stage 4 Status: Chronic Current Visit: Yes Code(s): L89.314 - Pressure ulcer of right buttock, stage 4 (2) Paraplegia Status: Chronic Current Visit: Yes Code(s): G82.20 - Paraplegia, unspecified (3) History of osteomyelitis Status: Chronic Current Visit: Yes Code(s): Z87.39 - Personal history of other diseases of the musculoskeletal system and connective tissue (4) Paraplegic immobility syndrome Status: Chronic Current Visit: Yes Code(s): M62.3 - Immobility syndrome (paraplegic) Type of Wound Date of Service: 11/01/18 Chief Complaint: Right ischial pressure sore, Stage IV. History of Wound: Surgery 11/17/17 - Excision right ischial pressure sore, Stage IV, with partial ostectomy for osteomyelitis. Wound care -Dakin's solution. It has improved the bed of his ulcer to beefy red. Will apply for wound VAC and home health to help with wound VAC changes. Operative culture, bone and soft tissue - Enterobacter cloacae. Preop culture showed Staphylococcus haemolyticus and Aerococcus viridans. He was discharged on Vancomycin, and Levaquin, and Diflucan. Another wound culture from 01/11/18 showed Staphylococcus lentus and Granulicatella adiacens. He was started on Doxycycline and stopped it because of GI issues. Another wound culture was obtained on 03/29/18. It showed Citrobacter freundii, Enterococcus faecalis, Streptococcus mitis/orallis, and Corynebacterium minutissimum. He was started on Augmentin and Levaquin. He states he has stopped the Augmentin because of diarrhea. He finished the Levaquin. On 05/17/18, another wound culture was done because of persistent moisture in the ulcer. It showed Enterococcus faecalis and Enterococcus avium. He was started on Augmentin. He was encouraged to eat yogurt to minimize his GI issues. This was stopped because he broke out in hives. Prealbumin from 11/18/17 was 21.3. Encourage nutritional supplementation with protein to help the healing process. CT Pelvis was done on 11/07/17. It showed right buttocks and upper posterior thigh decubitus ulcer with granulation tissue and air pocket extending to the ischial tuberosity appear larger when compared to the previous study. There is osteosclerosis in the ischial tuberosity with irregular periosteal bone formation suggesting chronic osteomyelitis.. A repeat CT Pelvis was done on 05/17/18. It showed bony. irregularity about the right greater trochanter which is unchanged. There is a large right-sided decubitus ulcer. The possibility of osteomyelitis in the ischial tuberosity cannot be completely ruled out.. Today he denies fever. His appetite is good. The undermining in the ulcer is stable. The Dakin's has helped decrease the moisture in the ulcer along with Sorbian Sachet. Patient states he has been spending more time in bed to help decrease the amount of moisture. Family refusing PICC line for IV antibiotics. The family would like him to have the wound VAC. Will continue the wound VAC. Refusing any further surgeries for debridement or a flap for closure. Follow up in one week. With his chronic refractory osteomyelitis, we are waiting on insurance approval for HBO treatments. Progress of Wound: Ulcer bed is beefy pink and periwound looks good. - Physical Exam Vital Signs Temp Pulse Resp BP 96.2 F L 77 18 107/72 11/01/18 10:33 11/01/18 10:33 11/01/18 10:33 11/01/18 10:33 General: Alert, Oriented x3 HEENT: Atraumatic Oral: Moist Mucosa Lungs: Normal air movement Cardiovascular: Regular rate Extremities: No edema, Capillary Refill Less than 3 Seconds Skin: Ulcer/ Wound - Right ischium Wound Measurements and Assessment WC - Nurse 1 - General Ulcer Measurement Start: 10/11/18 10:50 Freq: Status: Active Protocol: Activity Type Activity Date Activity User E-Sign Co-Sign Detail Recorded Client Recorded Date Recorded By Document 11/01/18 10:33 [facility] [id number] 11/01/18 10:54 [facility] 11/01/18 10:33 Wound Center Nurse 1 [Ulcer Assessment] #1 RT ISCHIUM- POST OP -Combined with other wound No -Current Size (cm) - Length 6.2 -Current Size (cm) - Width 3.4 -Current Size (cm) - Depth 1.4 -Total Square Cm 21.08 -Date of Last Picture (Recall this 11/01/18 field) -Photo Taken Yes -Epithelialization Small 1-33% -Tunneling Yes -Tunneling Position (O'clock) 12 -Tunneling Distance (cm) 3.3 -Undermining/Tunneling No -Circular Undermining No -Exudate Amt Medium -Exudate Type Serosanguineous -Wound Margin Thickened -Granulation Amt Large (67-100%) -Granulation Quality Red -Slough/Fibrin No -Necrosis Amt None Present (0 %) -Texture (Elizabeth-wound Skin Appearance) Assessed, Scarring -Moisture (Elizabeth-wound Skin Appearance Assessed ) -Color (Elizabeth-wound Skin Appearance) Assessed -Temperature (Elizabeth-wound Skin No Abnormality Appearance) (Pt Warm) -Tenderness on Palpation (Elizabeth-wound No Skin Appearance) -Ulcer Cleansing Wound Cleanser -Foul Odor after Cleansing No -Anesthetic Used 4% Lidocaine Solution WC - Nurse 2 - General Ulcer CM Notes Start: 10/11/18 10:50 Freq: Status: Active Protocol: Activity Type Activity Date Activity User E-Sign Co-Sign Detail Recorded Client Recorded Date Recorded By Document 11/01/18 11:14 [id number] 11/01/18 11:17 11/01/18 11:14 Wound Center Nurse 2 [Procedure/Treatment] -Time 11:16 -Correct Patient Yes -Correct Side, Site, Position Yes -Correct Procedure Yes -Procedure Performed Yes -Type of Procedure Debridement -Clinical Debridement Subcutaneous -Post Debridement Size (cm) - Length 6.3 -Post Debridement Size (cm) - Width 3.5 -Post Debridement Size (cm) - Depth 1.4 -Total Square Cm 22.05 -Wound/Ulcer Outcome Not Healed -Ulcer Cleansing Rinsed/ Irrigated with Saline -Foul Odor after Cleansing No -Bioengineered Tissue No -Bleeding Controlled with Pressure -Other tunnel @ 12, 2. 4cm -Offloading No -Treatment Response Procedure Tolerated Well [See Physician Procedure note for Specifics] Pain Scale: 0-10 Numeric [Pain] -Is Patient Pain Free? Yes Musculoskeletal: No Tenderness to Palpation of Joints or Extremities Neurological: Neuro grossly intact Psych/Mental Status: Normal Affect, Appropriate Debridement Note Post-Debridement Measurements/Treatment - Nurse 2 - General Ulcer CM Notes Start: 10/11/18 10:50 Freq: Status: Active Protocol: Activity Type Activity Date Activity User E-Sign Co-Sign Detail Recorded Client Recorded Date Recorded By Document 10/11/18 11:20 [id number] 10/11/18 11:23 JF Document 11/01/18 11:14 MW [id number] 11/01/18 11:17 MW 10/11/18 11/01/18 11:20 11:14 Wound Center Nurse 2 #1 RT ISCHIUM- POST OP -Time 11:20 11:16 -Correct Patient Yes Yes -Correct Side, Site, Position Yes Yes -Correct Procedure Yes Yes -Procedure Performed Yes Yes -Type of Procedure Debridement Debridement -Clinical Debridement Muscle Subcutaneous -Post Debridement Size (cm) - Length 6 6.3 -Post Debridement Size (cm) - Width 3.5 3.5 -Post Debridement Size (cm) - Depth 1.9 1.4 -Total Square Cm 21.0 22.05 -Wound/Ulcer Outcome Not Healed Not Healed -Ulcer Cleansing Rinsed/ Rinsed/ Irrigated with Irrigated with Saline Saline -Foul Odor after Cleansing No No -Bioengineered Tissue No No -Bleeding Controlled with Pressure Pressure -Other tunnel at 12:00 tunnel @ 12, 2. ---2.7cm 4cm -Offloading No No -Treatment Response Procedure Procedure Tolerated Well Tolerated Well Pain Scale: 0-10 Numeric Is Patient Pain Free? Yes Yes Wound debrided: Right ischium ulcer Laterality: Right Type of Debridement: Excisional debridement Anesthesia Used: 4% Lidocaine Solution Depth: Down to and including healthy tissue, in the subcutaneous layer Percentage of wound debrided: 100 Instrument Used: 7mm curette Tissue Removed: Subcutaneous tissue and slough Severity: Fat Layer Exposed Amount of bleeding with debridement: Mild Bleeding Controlled with: Compression and gauze Patient tolerated procedure well Assessment/Plan Active Problems Right ischial pressure sore, stage 4 (Chronic) Paraplegia (Chronic) History of osteomyelitis (Chronic) Paraplegic immobility syndrome (Chronic) Assessment: 1. Right ischial pressure sore, stage IV. 2. Paraplegia. 3. Chronic refractory osteomyelitis. 4. s/p excision right ischial pressure sore, Stage IV, with partial ostectomy for osteomyelitis. Plan: Tolerating the wound VAC at 150 mmHg. A wound culture was obtained on 05/17/18 that showed Enterococcus faecalis and Enterococcus avium. His Augmentin was stopped due to hives. A CT Pelvis was done on 11/07/17. It was suspicious for osteomyelitis. A repeat CT Pelvis was done on 05/17/18. Once again osteomyelitis is suspected and cannot be ruled out. Since osteomyelitis is still suspected despite surgery, wound care, and antibiotics, I feel he qualifies for chronic refractory osteomyelitis. He would benefit from HBO treatments for this. Prealbumin from 11/18/17 was 21.3. Encourage nutritional supplementation with protein to help the healing process. Because of the increased moisture and presence of some undermining, and the difficulty with po antibiotics, he may ultimately need IV antibiotics, additional operative debridement, and the use of the VAC. Before any additional surgery, would proceed with HBO treatments first. Patient and his family states they are not interested in a muscle flap for wound closure, a colostomy to help keep bacteria out of the wound or a PICC line for antibiotics. Wound VAC to be applied to the ulcer now that the ulcer bed is beefy pink. They are cleaning wound with Dakin's between wound VAC changes. Home health to help with wound VAC changes three times per week. Follow up in 1 week to see if he continues to have home health to do VAC changes. Code Visit 111xxx-113xx: 11272 Mirella subq tissue 20 sq cm/< Add On Codes: 38365 Mirella subq tissue add-on - x1
== END 2018-11-10 23:59 ==
LOC: WC 10:30
PROVIDERS: Family Provider Preventive Medicine Occupational Medicine; PCP Preventive Medicine Occupational Medicine; Referring Provider Nurse Practitioner Family; Visit Provider Nurse Practitioner Family
DX: L89.214 Pressure ulcer of right hip, stage 4 (principal); G82.20 Paraplegia, unspecified; M86.68 Other chronic osteomyelitis, other site
CPT/HCPCS: 11042; 11043; 11045; 11046; 97605

== ENCOUNTER → 2018-11-17 | Outpatient (CLI) | payer BC, MEDICARE, SELFPAY | END | disposition home or self-care (01) | LOC: LABSPEC 12:05 | PROVIDERS: Family Provider Preventive Medicine Occupational Medicine; PCP Preventive Medicine Occupational Medicine | DX: R82.998 Other abnormal findings in urine (principal) | CPT/HCPCS: 87077; 87086; 87088; 87186 ==

== ENCOUNTER 2018-12-06 10:45 | Outpatient (RCR) | payer BC, MEDICARE, SELFPAY ==
[2018-11-11 00:40] VITALS: BP 107/72; PULSE 77; RESP 18; TEMP 35.7
[2018-11-15 11:10] VITALS: BP 99/58; PULSE 94; RESP 18; TEMP 35.9
--- NOTE | 2018-11-15 13:37 | PCM.WC.PN ---
(1) Right ischial pressure sore, stage 4 Status: Chronic Code(s): L89.314 - Pressure ulcer of right buttock, stage 4 (2) Paraplegia Status: Chronic Code(s): G82.20 - Paraplegia, unspecified (3) History of osteomyelitis Status: Chronic Code(s): Z87.39 - Personal history of other diseases of the musculoskeletal system and connective tissue (4) Paraplegic immobility syndrome Status: Chronic Code(s): M62.3 - Immobility syndrome (paraplegic) Type of Wound Date of Service: 11/15/18 Chief Complaint: Right ischial pressure sore, Stage IV. History of Wound: Surgery 11/17/17 - Excision right ischial pressure sore, Stage IV, with partial ostectomy for osteomyelitis. Wound care -Dakin's solution. It has improved the bed of his ulcer to beefy red. Will apply for wound VAC and home health to help with wound VAC changes. He home health until 12/01/18. After he no longer has homehealth his family is willing to apply the wound VAC. Operative culture, bone and soft tissue - Enterobacter cloacae. Preop culture showed Staphylococcus haemolyticus and Aerococcus viridans. He was discharged on Vancomycin, and Levaquin, and Diflucan. Another wound culture from 01/11/18 showed Staphylococcus lentus and Granulicatella adiacens. He was started on Doxycycline and stopped it because of GI issues. Another wound culture was obtained on 03/29/18. It showed Citrobacter freundii, Enterococcus faecalis, Streptococcus mitis/orallis, and Corynebacterium minutissimum. He was started on Augmentin and Levaquin. He states he has stopped the Augmentin because of diarrhea. He finished the Levaquin. On 05/17/18, another wound culture was done because of persistent moisture in the ulcer. It showed Enterococcus faecalis and Enterococcus avium. He was started on Augmentin. He was encouraged to eat yogurt to minimize his GI issues. This was stopped because he broke out in hives. Prealbumin from 11/18/17 was 21.3. Encourage nutritional supplementation with protein to help the healing process. CT Pelvis was done on 11/07/17. It showed right buttocks and upper posterior thigh decubitus ulcer with granulation tissue and air pocket extending to the ischial tuberosity appear larger when compared to the previous study. There is osteosclerosis in the ischial tuberosity with irregular periosteal bone formation suggesting chronic osteomyelitis.. A repeat CT Pelvis was done on 05/17/18. It showed bony. irregularity about the right greater trochanter which is unchanged. There is a large right-sided decubitus ulcer. The possibility of osteomyelitis in the ischial tuberosity cannot be completely ruled out.. Today he denies fever. His appetite is good. The undermining in the ulcer is stable. The Dakin's has helped decrease the moisture in the ulcer along with Sorbian Sachet. Patient states he has been spending more time in bed to help decrease the amount of moisture. Family refusing PICC line for IV antibiotics. The family would like him to have the wound VAC. Will continue the wound VAC. Refusing any further surgeries for debridement or a flap for closure. Follow up in one week. With his chronic refractory osteomyelitis, we are waiting on insurance approval for HBO treatments. Progress of Wound: Ulcer bed is beefy pink. Having some periwound issues, will take a one week wound VAC holiday. - Physical Exam Vital Signs Temp Pulse Resp BP 96.6 F L 94 18 99/58 L 11/15/18 11:10 11/15/18 11:10 11/15/18 11:10 11/15/18 11:10 General: Alert, Oriented x3, Cooperative HEENT: Atraumatic Oral: Moist Mucosa Lungs: Normal air movement Cardiovascular: Regular rate Extremities: No edema Skin: Ulcer/ Wound - Right ischial ulcer Wound Measurements and Assessment WC - Nurse 1 - General Ulcer Measurement Start: 11/15/18 11:10 Freq: Status: Active Protocol: Activity Type Activity Date Activity User E-Sign Co-Sign Detail Recorded Client Recorded Date Recorded By Document 11/15/18 11:10 MW [id number] 11/15/18 11:13 MW 11/15/18 11:10 Wound Center Nurse 1 [Ulcer Assessment] #1 RT ISCHIUM- POST OP -Combined with other wound No -Current Size (cm) - Length 6.8 -Current Size (cm) - Width 3.3 -Current Size (cm) - Depth 1.5 -Total Square Cm 22.44 -Photo Taken No -Epithelialization Small 1-33% -Tunneling No -Undermining/Tunneling No -Circular Undermining No -Exudate Amt Large -Exudate Type Serosanguineous -Wound Margin Thickened & Rolled Under -Granulation Amt Large (67-100%) -Granulation Quality Red -Slough/Fibrin Yes -Necrosis Amt Small (1-33%) -Necrotic Tissue Type Adherent Slough -Structure Exposed N/A -Texture (Matt-wound Skin Appearance) Assessed, Excoriation, Scarring -Moisture (Matt-wound Skin Appearance No Abnormality, ) Assessed -Color (Matt-wound Skin Appearance) No Abnormality, Assessed -Temperature (Matt-wound Skin No Abnormality Appearance) (Pt Warm) -Tenderness on Palpation (Matt-wound No Skin Appearance) -Ulcer Cleansing Wound Cleanser -Foul Odor after Cleansing No -Anesthetic Used 4% Lidocaine Solution [Edema Assessment] -Lower Limb Edema Present No WC - Nurse 2 - General Ulcer CM Notes Start: 11/15/18 11:10 Freq: Status: Active Protocol: Activity Type Activity Date Activity User E-Sign Co-Sign Detail Recorded Client Recorded Date Recorded By Document 11/15/18 11:58 [id number] 11/15/18 12:00 11/15/18 11:58 Wound Center Nurse 2 [Procedure/Treatment] #1 RT ISCHIUM- POST OP -Time 11:59 -Correct Patient Yes -Correct Side, Site, Position Yes -Correct Procedure Yes -Procedure Performed Yes -Type of Procedure Debridement -Clinical Debridement Muscle -Post Debridement Size (cm) - Length 6 -Post Debridement Size (cm) - Width 3.7 -Post Debridement Size (cm) - Depth 2.7 -Total Square Cm 22.2 -Wound/Ulcer Outcome Not Healed -Ulcer Cleansing Rinsed/ Irrigated with Saline -Foul Odor after Cleansing No -Bioengineered Tissue No -Bleeding Controlled with Pressure -Offloading No -Treatment Response Procedure Tolerated Well [See Physician Procedure note for Specifics] Pain Scale: 0-10 Numeric [Pain] -Is Patient Pain Free? Yes Musculoskeletal: No Tenderness to Palpation of Joints or Extremities Neurological: Neuro grossly intact Psych/Mental Status: Normal Affect, Appropriate Debridement Note Post-Debridement Measurements/Treatment WC - Nurse 2 - General Ulcer CM Notes Start: 11/15/18 11:10 Freq: Status: Active Protocol: Activity Type Activity Date Activity User E-Sign Co-Sign Detail Recorded Client Recorded Date Recorded By Document 11/15/18 11:58 [id number] 11/15/18 12:00 LIANE 11/15/18 11:58 Wound Center Nurse 2 #1 RT ISCHIUM- POST OP -Time 11:59 -Correct Patient Yes -Correct Side, Site, Position Yes -Correct Procedure Yes -Procedure Performed Yes -Type of Procedure Debridement -Clinical Debridement Muscle -Post Debridement Size (cm) - Length 6 -Post Debridement Size (cm) - Width 3.7 -Post Debridement Size (cm) - Depth 2.7 -Total Square Cm 22.2 -Wound/Ulcer Outcome Not Healed -Ulcer Cleansing Rinsed/ Irrigated with Saline -Foul Odor after Cleansing No -Bioengineered Tissue No -Bleeding Controlled with Pressure -Offloading No -Treatment Response Procedure Tolerated Well Pain Scale: 0-10 Numeric Is Patient Pain Free? Yes Wound debrided: Ischial ulcer Laterality: Right Type of Debridement: Excisional debridement Anesthesia Used: 4% Lidocaine Solution Depth: Down to and including healthy tissue, in the subcutaneous layer Percentage of wound debrided: 100 Instrument Used: 7mm curette Tissue Removed: Subcutaneous tissue and slough Severity: Fat Layer Exposed Amount of bleeding with debridement: Mild Bleeding Controlled with: Compression and gauze Patient tolerated procedure well Assessment/Plan Assessment: 1. Right ischial pressure sore, stage IV. 2. Paraplegia. 3. Chronic refractory osteomyelitis. 4. s/p excision right ischial pressure sore, Stage IV, with partial ostectomy for osteomyelitis. Plan: Right ischial ulcer bed is beefy red. His matt wound is excoriated. He would like to have a wound VAC holiday for one week.. A wound culture was obtained on 05/17/18 that showed Enterococcus faecalis and Enterococcus avium. His Augmentin was stopped due to hives. A CT Pelvis was done on 11/07/17. It was suspicious for osteomyelitis. A repeat CT Pelvis was done on 05/17/18. Once again osteomyelitis is suspected and cannot be ruled out. Since osteomyelitis is still suspected despite surgery, wound care, and antibiotics, I feel he qualifies for chronic refractory osteomyelitis. He would benefit from HBO treatments for this. Prealbumin from 11/18/17 was 21.3. Encourage nutritional supplementation with protein to help the healing process. Because of the increased moisture and presence of some undermining, and the difficulty with po antibiotics, he may ultimately need IV antibiotics, additional operative debridement, and the use of the VAC. Before any additional surgery, would proceed with HBO treatments first. Patient and his family states they are not interested in a muscle flap for wound closure, a colostomy to help keep bacteria out of the wound or a PICC line for antibiotics. Wound VAC to be applied to the ulcer now that the ulcer bed is beefy pink. They are cleaning wound with Dakin's between wound VAC changes. With the wound VAC holiday they will silver to the ulcer bed and use sobian sachet to help with absorbing drainage. Home health to help with wound VAC changes three times per week. His home health runs out 12/01/18. His family is willing to do the wound VAC changes. He will need to come in weekly for wound measurements to keep the VAC. Follow up in 1 week. Code Visit 111xxx-113xx: 64227 Mirella musc/fascia 20 sq cm/< Add On Codes: [id number] Mirella musc/fascia add-on
[2018-11-22 10:56] VITALS: BP 141/104; PULSE 104; RESP 18; TEMP 36.1
--- NOTE | 2018-11-22 23:43 | PCM.WC.PN ---
Type of Wound Date of Service: 11/22/18 Chief Complaint: Right ischial pressure sore, Stage IV. History of Wound: Surgery 11/17/17 - Excision right ischial pressure sore, Stage IV, with partial ostectomy for osteomyelitis. Wound care -VAC. Cleansing the wound with Dakin's. Operative culture, bone and soft tissue - Enterobacter cloacae. Preop culture showed Staphylococcus haemolyticus and Aerococcus viridans. He was discharged on Vancomycin, and Levaquin, and Diflucan. Another wound culture from 01/11/18 showed Staphylococcus lentus and Granulicatella adiacens. He was started on Doxycycline and stopped it because of GI issues. Another wound culture was obtained on 03/29/18. It showed Citrobacter freundii, Enterococcus faecalis, Streptococcus mitis/orallis, and Corynebacterium minutissimum. He was started on Augmentin and Levaquin. He states he has stopped the Augmentin because of diarrhea. He finished the Levaquin. On 05/17/18, another wound culture was done because of persistent moisture in the ulcer. It showed Enterococcus faecalis and Enterococcus avium. He was started on Augmentin. He was encouraged to eat yogurt to minimize his GI issues. This was stopped because he broke out in hives. He is not interested in IV antibiotics at this time. Prealbumin from 11/18/17 was 21.3. Encourage nutritional supplementation with protein to help the healing process. CT Pelvis was done on 11/07/17. It showed right buttocks and upper posterior thigh decubitus ulcer with granulation tissue and air pocket extending to the ischial tuberosity appear larger when compared to the previous study. There is osteosclerosis in the ischial tuberosity with irregular periosteal bone formation suggesting chronic osteomyelitis.. A repeat CT Pelvis was done on 05/17/18. It showed bony irregularity about the right greater trochanter which is unchanged. There is a large right-sided decubitus ulcer. The possibility of osteomyelitis in the ischial tuberosity cannot be completely ruled out. Today he denies fever. His appetite is good. The undermining in the ulcer is stable. Patient states he has been spending more time in bed to help decrease the amount of moisture. Family refusing PICC line for IV antibiotics. Refusing any further surgeries for debridement or a flap for closure. With his chronic refractory osteomyelitis, we are waiting on insurance approval for HBO treatments. He states he is running out of Home Health visits with the VAC. Progress of Wound: Improved. - Physical Exam Vital Signs Temp Pulse Resp BP 96.9 F L 104 H 18 141/104 H 11/22/18 10:56 11/22/18 10:56 11/22/18 10:56 11/22/18 10:56 Wound Measurements and Assessment WC - Nurse 1 - General Ulcer Measurement Start: 11/15/18 11:10 Freq: Status: Active Protocol: Activity Type Activity Date Activity User E-Sign Co-Sign Detail Recorded Client Recorded Date Recorded By Document 11/22/18 10:56 DL [id number] 11/22/18 11:08 DL 11/22/18 10:56 Wound Center Nurse 1 [Ulcer Assessment] #1 RT ISCHIUM- POST OP -Current Size (cm) - Length 6.5 -Current Size (cm) - Width 4 -Current Size (cm) - Depth 1.6 -Total Square Cm 26.0 -Undermining/Tunneling Starts (O' 11 clock) -Undermining/Tunneling Ends (O'clock) 5 -Maximum Distance (cm) 3 -Exudate Amt Medium -Exudate Type Serosanguineous -Wound Margin Thickened & Rolled Under -Granulation Amt Large (67-100%) -Granulation Quality Red -Necrosis Amt Small (1-33%) -Necrotic Tissue Type Adherent Slough -Structure Exposed N/A -Texture (Elizabeth-wound Skin Appearance) Scarring -Moisture (Elizabeth-wound Skin Appearance No Abnormality ) -Color (Elizabeth-wound Skin Appearance) No Abnormality -Temperature (Elizabeth-wound Skin No Abnormality Appearance) (Pt Warm) -Tenderness on Palpation (Elizabeth-wound No Skin Appearance) -Ulcer Cleansing Rinsed/ Irrigated with Saline -Foul Odor after Cleansing No -Anesthetic Used 4% Lidocaine Solution WC - Nurse 2 - General Ulcer CM Notes Start: 11/15/18 11:10 Freq: Status: Active Protocol: Activity Type Activity Date Activity User E-Sign Co-Sign Detail Recorded Client Recorded Date Recorded By Document 11/22/18 11:23 DL [id number] 11/22/18 11:24 DL 11/22/18 11:23 Wound Center Nurse 2 [Procedure/Treatment] -Time 11:23 -Correct Patient Yes -Correct Side, Site, Position Yes -Correct Procedure Yes -Procedure Performed Yes -Type of Procedure Debridement -Clinical Debridement Muscle -Post Debridement Size (cm) - Length 6.5 -Post Debridement Size (cm) - Width 4.1 -Post Debridement Size (cm) - Depth 2.4 -Total Square Cm 26.65 -Wound/Ulcer Outcome Not Healed -Ulcer Cleansing Rinsed/ Irrigated with Saline -Foul Odor after Cleansing No -Bioengineered Tissue No -Bleeding Controlled with Pressure -Offloading No -Treatment Response Procedure Tolerated Well [See Physician Procedure note for Specifics] Pain Scale: 0-10 Numeric [Pain] -Is Patient Pain Free? Yes Debridement Note Post-Debridement Measurements/Treatment WC - Nurse 2 - General Ulcer CM Notes Start: 11/15/18 11:10 Freq: Status: Active Protocol: Activity Type Activity Date Activity User E-Sign Co-Sign Detail Recorded Client Recorded Date Recorded By Document 11/15/18 11:58 [id number] 11/15/18 12:00 JF Document 11/22/18 11:23 DL [id number] 11/22/18 11:24 DL 11/15/18 11/22/18 11:58 11:23 Wound Center Nurse 2 #1 RT ISCHIUM- POST OP -Time 11:59 11:23 -Correct Patient Yes Yes -Correct Side, Site, Position Yes Yes -Correct Procedure Yes Yes -Procedure Performed Yes Yes -Type of Procedure Debridement Debridement -Clinical Debridement Muscle Muscle -Post Debridement Size (cm) - Length 6 6.5 -Post Debridement Size (cm) - Width 3.7 4.1 -Post Debridement Size (cm) - Depth 2.7 2.4 -Total Square Cm 22.2 26.65 -Wound/Ulcer Outcome Not Healed Not Healed -Ulcer Cleansing Rinsed/ Rinsed/ Irrigated with Irrigated with Saline Saline -Foul Odor after Cleansing No No -Bioengineered Tissue No No -Bleeding Controlled with Pressure Pressure -Offloading No No -Treatment Response Procedure Procedure Tolerated Well Tolerated Well Pain Scale: 0-10 Numeric Is Patient Pain Free? Yes Yes Wound debrided: #1 Right ischial area. Laterality: Right Wound Grade/Stage: IV. Type of Debridement: Excisional debridement Anesthesia Used: 4% Lidocaine Solution Depth: Down to and including healthy tissue, in the subcutaneous layer, to muscle, to bone - bone is palpable but not debrided. Percentage of wound debrided: 100 Instrument Used: 7mm curette Tissue Removed: subcutaneous tissue and muscle. Severity: Fat Layer Exposed - muscle is exposed. bone is palpable but not debrided. Amount of bleeding with debridement: Mild Bleeding Controlled with: Pressure Patient tolerated procedure well Assessment/Plan Assessment: 1. Right ischial pressure sore, stage IV. 2. Paraplegia. 3. Chronic refractory osteomyelitis. 4. s/p excision right ischial pressure sore, Stage IV, with partial ostectomy for osteomyelitis. Plan: Tolerating the wound VAC at 150 mmHg. Will need to stop the VAC because of the fact he is running out of Home Health visits. Will continue the Dakin's dressing changes because the family can do them. A wound culture was obtained on 05/17/18 that showed Enterococcus faecalis and Enterococcus avium. His Augmentin was stopped due to hives. A CT Pelvis was done on 11/07/17. It was suspicious for osteomyelitis. A repeat CT Pelvis was done on 05/17/18. Once again osteomyelitis is suspected and cannot be ruled out. Since osteomyelitis is still suspected despite surgery, wound care, and antibiotics, I feel he qualifies for chronic refractory osteomyelitis. He would benefit from HBO treatments for this. Prealbumin from 11/18/17 was 21.3. Encourage nutritional supplementation with protein to help the healing process. Because of the increased moisture and presence of some undermining, and the difficulty with po antibiotics, he may ultimately need IV antibiotics and additional operative debridement. Before any additional surgery, would proceed with HBO treatments first. Patient and his family states they are not interested in a muscle flap for wound closure, a colostomy to help keep bacteria out of the wound or a PICC line for antibiotics. Follow up 4 weeks.
[2018-12-06 11:10] VITALS: BP 89/63; PULSE 92; RESP 18; TEMP 36.1
--- NOTE | 2018-12-06 17:10 | PCM.WC.PN ---
(1) Right ischial pressure sore, stage 4 Status: Chronic Code(s): L89.314 - Pressure ulcer of right buttock, stage 4 (2) Paraplegia Status: Chronic Code(s): G82.20 - Paraplegia, unspecified (3) History of osteomyelitis Status: Chronic Code(s): Z87.39 - Personal history of other diseases of the musculoskeletal system and connective tissue (4) Paraplegic immobility syndrome Status: Chronic Code(s): M62.3 - Immobility syndrome (paraplegic) Type of Wound Date of Service: 12/06/18 Chief Complaint: Right ischial pressure sore, Stage IV. History of Wound: Surgery 11/17/17 - Excision right ischial pressure sore, Stage IV, with partial ostectomy for osteomyelitis. Wound care - Dakin's dressing daily. Cover with Sorbian Sachet. Patient decided to stop the wound VAC because he was losing home health and he would like to see how it heals without the VAC. Operative culture, bone and soft tissue - Enterobacter cloacae. Preop culture showed Staphylococcus haemolyticus and Aerococcus viridans. He was discharged on Vancomycin, and Levaquin, and Diflucan. Another wound culture from 01/11/18 showed Staphylococcus lentus and Granulicatella adiacens. He was started on Doxycycline and stopped it because of GI issues. Another wound culture was obtained on 03/29/18. It showed Citrobacter freundii, Enterococcus faecalis, Streptococcus mitis/orallis, and Corynebacterium minutissimum. He was started on Augmentin and Levaquin. He states he has stopped the Augmentin because of diarrhea. He finished the Levaquin. On 05/17/18, another wound culture was done because of persistent moisture in the ulcer. It showed Enterococcus faecalis and Enterococcus avium. He is not interested in IV antibiotics at this time. Prealbumin from 11/18/17 was 21.3. Encourage nutritional supplementation with protein to help the healing process. CT Pelvis was done on 11/07/17. It showed right buttocks and upper posterior thigh decubitus ulcer with granulation tissue and air pocket extending to the ischial tuberosity appear larger when compared to the previous study. There is osteosclerosis in the ischial tuberosity with irregular periosteal bone formation suggesting chronic osteomyelitis.. A repeat CT Pelvis was done on 05/17/18. It showed bony irregularity about the right greater trochanter which is unchanged. There is a large right-sided decubitus ulcer. The possibility of osteomyelitis in the ischial tuberosity cannot be completely ruled out. Today he denies fever. His appetite is good. The undermining in the ulcer is stable. Patient states he has been spending more time in bed to help decrease the amount of moisture. Family refusing PICC line for IV antibiotics. Refusing any further surgeries for debridement or a flap for closure. With his chronic refractory osteomyelitis, we are waiting on insurance approval for HBO treatments. Progress of Wound: Stable - Physical Exam Vital Signs Temp Pulse Resp BP 96.9 F L 92 18 89/63 L 12/06/18 11:10 12/06/18 11:10 12/06/18 11:10 12/06/18 11:10 General: Alert, Oriented x3, Cooperative HEENT: Atraumatic Oral: Moist Mucosa Lungs: Normal air movement Cardiovascular: Regular rate Extremities: No edema, Capillary Refill Less than 3 Seconds Skin: Ulcer/ Wound - Right ischial ulcer. Surrounding periwound is healed and intact with no redness. Wound Measurements and Assessment WC - Nurse 1 - General Ulcer Measurement Start: 11/15/18 11:10 Freq: Status: Active Protocol: Activity Type Activity Date Activity User E-Sign Co-Sign Detail Recorded Client Recorded Date Recorded By Document 12/06/18 11:10 MW [id number] 12/06/18 11:24 MW 12/06/18 11:10 Wound Center Nurse 1 [Ulcer Assessment] #1 RT ISCHIUM- POST OP -Combined with other wound No -Current Size (cm) - Length 6.0 -Current Size (cm) - Width 3.8 -Current Size (cm) - Depth 2.0 -Total Square Cm 22.80 -Photo Taken No -Epithelialization Small 1-33% -Tunneling No -Undermining/Tunneling No -Circular Undermining No -Exudate Amt Medium -Exudate Type Serosanguineous -Wound Margin Flat & Intact -Granulation Amt Large (67-100%) -Granulation Quality [place] -Slough/Fibrin Yes -Necrosis Amt None Present (0 %) -Necrotic Tissue Type Adherent Slough -Structure Exposed N/A -Texture (Elizabeth-wound Skin Appearance) Assessed, Scarring -Moisture (Elizabeth-wound Skin Appearance Assessed, ) Maceration -Color (Elizabeth-wound Skin Appearance) No Abnormality, Assessed -Temperature (Elizabeth-wound Skin No Abnormality Appearance) (Pt Warm) -Tenderness on Palpation (Elizabeth-wound No Skin Appearance) -Ulcer Cleansing Rinsed/ Irrigated with Saline -Foul Odor after Cleansing No -Anesthetic Used 4% Lidocaine Solution [Edema Assessment] -Lower Limb Edema Present No WC - Nurse 2 - General Ulcer CM Notes Start: 11/15/18 11:10 Freq: Status: Active Protocol: Activity Type Activity Date Activity User E-Sign Co-Sign Detail Recorded Client Recorded Date Recorded By Document 12/06/18 11:40 [id number] 12/06/18 11:44 12/06/18 11:40 Wound Center Nurse 2 [Procedure/Treatment] #1 RT ISCHIUM- POST OP -Time 11:41 -Correct Patient Yes -Correct Side, Site, Position Yes -Correct Procedure Yes -Procedure Performed Yes -Type of Procedure Debridement -Clinical Debridement Muscle -Post Debridement Size (cm) - Length 6.5 -Post Debridement Size (cm) - Width 3.5 -Post Debridement Size (cm) - Depth 1.6 -Total Square Cm 22.75 -Wound/Ulcer Outcome Not Healed -Ulcer Cleansing Rinsed/ Irrigated with Saline -Foul Odor after Cleansing No -Bioengineered Tissue No -Bleeding Controlled with Pressure -Other tunnel 10-12:00 4cm -Offloading No -Treatment Response Procedure Tolerated Well [See Physician Procedure note for Specifics] Pain Scale: 0-10 Numeric [Pain] -Is Patient Pain Free? Yes Musculoskeletal: No Tenderness to Palpation of Joints or Extremities Neurological: Neuro grossly intact Psych/Mental Status: Normal Affect, Appropriate Debridement Note Post-Debridement Measurements/Treatment WC - Nurse 2 - General Ulcer CM Notes Start: 11/15/18 11:10 Freq: Status: Active Protocol: Activity Type Activity Date Activity User E-Sign Co-Sign Detail Recorded Client Recorded Date Recorded By Document 11/15/18 11:58 JF [id number] 11/15/18 12:00 Document 11/22/18 11:23 DL [id number] 11/22/18 11:24 DL Document 12/06/18 11:40 [id number] 12/06/18 11:44 11/15/18 11/22/18 12/06/18 11:58 11:23 11:40 Wound Center Nurse 2 #1 RT ISCHIUM- POST OP -Time 11:59 11:23 11:41 -Correct Patient Yes Yes Yes -Correct Side, Site, Position Yes Yes Yes -Correct Procedure Yes Yes Yes -Procedure Performed Yes Yes Yes -Type of Procedure Debridement Debridement Debridement -Clinical Debridement Muscle Muscle Muscle -Post Debridement Size (cm) - Length 6 6.5 6.5 -Post Debridement Size (cm) - Width 3.7 4.1 3.5 -Post Debridement Size (cm) - Depth 2.7 2.4 1.6 -Total Square Cm 22.2 26.65 22.75 -Wound/Ulcer Outcome Not Healed Not Healed Not Healed -Ulcer Cleansing Rinsed/ Rinsed/ Rinsed/ Irrigated with Irrigated with Irrigated with Saline Saline Saline -Foul Odor after Cleansing No No No -Bioengineered Tissue No No No -Bleeding Controlled with Pressure Pressure Pressure -Other tunnel 10-12:00 4cm -Offloading No No No -Treatment Response Procedure Procedure Procedure Tolerated Well Tolerated Well Tolerated Well Pain Scale: 0-10 Numeric Is Patient Pain Free? Yes Yes Yes Wound debrided: Right ischium Type of Debridement: Excisional debridement Anesthesia Used: 4% Lidocaine Solution, 5% Lidocaine Gel Depth: Down to and including healthy tissue, in the subcutaneous layer Percentage of wound debrided: 100 Instrument Used: 7mm curette Tissue Removed: Subcutaneous tissue and slough Severity: Fat Layer Exposed Amount of bleeding with debridement: Mild Bleeding Controlled with: Pressure, Compression and gauze Patient tolerated procedure well Assessment/Plan Assessment: 1. Right ischial pressure sore, stage IV. 2. Paraplegia. 3. Chronic refractory osteomyelitis. 4. s/p excision right ischial pressure sore, Stage IV, with partial ostectomy for osteomyelitis. Plan: Tolerating the wound VAC at 150 mmHg. Will need to stop the VAC because of the fact he is running out of Home Health visits. Will continue the Dakin's dressing changes because the family can do them. He will use Sorbian Sachet to help with absorption. When he finishes theSorbian Sachet we will switch him to Extrasorb dressing because it is a larger size that fits over his ulcer better. A wound culture was obtained on 05/17/18 that showed Enterococcus faecalis and Enterococcus avium. His Augmentin was stopped due to hives. A CT Pelvis was done on 11/07/17. It was suspicious for osteomyelitis. A repeat CT Pelvis was done on 05/17/18. Once again osteomyelitis is suspected and cannot be ruled out. Since osteomyelitis is still suspected despite surgery, wound care, and antibiotics, I feel he qualifies for chronic refractory osteomyelitis. He would benefit from HBO treatments for this. Prealbumin from 11/18/17 was 21.3. Encourage nutritional supplementation with protein to help the healing process. Because of the increased moisture and presence of some undermining, and the difficulty with po antibiotics, he may ultimately need IV antibiotics and additional operative debridement. Before any additional surgery, would proceed with HBO treatments first. Patient and his family states they are not interested in a muscle flap for wound closure, a colostomy to help keep bacteria out of the wound or a PICC line for antibiotics. Follow up 2 weeks. Code Visit [id number]: [id number] Mirella musc/fascia 20 sq cm/< Add On Codes: [id number] Mirella musc/fascia add-on - x1
== END 2018-12-11 23:59 ==
LOC: WC 10:45
PROVIDERS: Family Provider Preventive Medicine Occupational Medicine; PCP Preventive Medicine Occupational Medicine; Referring Provider Nurse Practitioner Family; Visit Provider Nurse Practitioner Family
DX: L89.214 Pressure ulcer of right hip, stage 4 (principal); G82.20 Paraplegia, unspecified; M86.68 Other chronic osteomyelitis, other site
CPT/HCPCS: 11043; 11046

== ENCOUNTER 2019-01-03 09:30 | Outpatient (RCR) | payer BC, MEDICARE, SELFPAY ==
[2018-12-12 00:34] VITALS: BP 89/63; PULSE 92; RESP 18; TEMP 36.1
[2018-12-20 10:08] VITALS: BP 80/57; PULSE 95; RESP 18; TEMP 36.2
--- NOTE | 2018-12-20 22:30 | PN.PCM_ITS ---
Type of Wound Date of Service: 12/20/18 Chief Complaint: Right ischial pressure sore, Stage IV. History of Wound: Surgery 11/17/17 - Excision right ischial pressure sore, Stage IV, with partial ostectomy for osteomyelitis. Wound care -Dakin's. Operative culture, bone and soft tissue - Enterobacter cloacae. Preop culture showed Staphylococcus haemolyticus and Aerococcus viridans. He was discharged on Vancomycin, and Levaquin, and Diflucan. Another wound culture from 01/11/18 showed Staphylococcus lentus and Granulicatella adiacens. He was started on Doxycycline and stopped it because of GI issues. Another wound culture was obtained on 03/29/18. It showed Citrobacter freundii, Enterococcus faecalis, Streptococcus mitis/orallis, and Corynebacterium minutissimum. He was started on Augmentin and Levaquin. He states he has stopped the Augmentin because of diarrhea. He finished the Levaquin. On 05/17/18, another wound culture was done because of persistent moisture in the ulcer. It showed Enterococcus faecalis and Enterococcus avium. He was started on Augmentin. He was encouraged to eat yogurt to minimize his GI issues. This was stopped because he broke out in hives. He is not interested in IV antibiotics at this time. Prealbumin from 11/18/17 was 21.3. Encourage nutritional supplementation with protein to help the healing process. CT Pelvis was done on 11/07/17. It showed right buttocks and upper posterior thigh decubitus ulcer with granulation tissue and air pocket extending to the ischial tuberosity appear larger when compared to the previous study. There is osteosclerosis in the ischial tuberosity with irregular periosteal bone formation suggesting chronic osteomyelitis. A repeat CT Pelvis was done on 05/17/18. It showed bony irregularity about the right greater trochanter which is unchanged. There is a large right-sided decubitus ulcer. The possibility of osteomyelitis in the ischial tuberosity cannot be completely ruled out. Today he denies fever. His appetite is good. The undermining in the ulcer is stable. Patient is refusing any further surgeries for debridement or a flap for closure. HBO was not approved. Progress of Wound: Improved. - Physical Exam Vital Signs Temp Pulse Resp BP 97.1 F L 95 18 80/57 L 12/20/18 10:08 12/20/18 10:08 12/20/18 10:08 12/20/18 10:08 Wound Measurements and Assessment - Nurse 1 - General Ulcer Measurement Start: 12/20/18 10:07 Freq: Status: Active Protocol: Activity Type Activity Date Activity User E-Sign Co-Sign Detail Recorded Client Recorded Date Recorded By Document 12/20/18 10:08 DAGO [id number] 12/20/18 10:20 DAGO 12/20/18 10:08 Wound Center Nurse 1 [Ulcer Assessment] #1 RT ISCHIUM- POST OP -Combined with other wound No -Current Size (cm) - Length 6.5 -Current Size (cm) - Width 4.0 -Current Size (cm) - Depth 1.8 -Total Square Cm 26.00 -Photo Taken Yes -Epithelialization Large 67-100% -Exudate Amt Medium -Exudate Type Serosanguineous -Wound Margin Thickened & Rolled Under -Granulation Amt Large (67-100%) -Granulation Quality Red -Necrosis Amt Small (1-33%) -Necrotic Tissue Type Adherent Slough -Structure Exposed N/A -Texture (Elizabeth-wound Skin Appearance) Scarring -Moisture (Elizabeth-wound Skin Appearance No Abnormality ) -Color (Elizabeth-wound Skin Appearance) No Abnormality -Temperature (Elizabeth-wound Skin No Abnormality Appearance) (Pt Warm) -Tenderness on Palpation (Elizabeth-wound No Skin Appearance) -Ulcer Cleansing Wound Cleanser -Foul Odor after Cleansing No -Anesthetic Used 4% Lidocaine Solution,5% Lidocaine Gel - Nurse 2 - General Ulcer CM Notes Start: 12/20/18 10:07 Freq: Status: Active Protocol: Activity Type Activity Date Activity User E-Sign Co-Sign Detail Recorded Client Recorded Date Recorded By Document 12/20/18 10:46 LIANE [id number] 12/20/18 10:47 LIANE 12/20/18 10:46 Wound Center Nurse 2 [Procedure/Treatment] -Time 10:46 -Correct Patient Yes -Correct Side, Site, Position Yes -Correct Procedure Yes -Procedure Performed Yes -Type of Procedure Debridement -Clinical Debridement Muscle -Post Debridement Size (cm) - Length 6.2 -Post Debridement Size (cm) - Width 3.7 -Post Debridement Size (cm) - Depth 2.0 -Total Square Cm 22.94 -Wound/Ulcer Outcome Not Healed -Ulcer Cleansing Rinsed/ Irrigated with Saline -Foul Odor after Cleansing No -Bioengineered Tissue No -Other tunnel 10-1:00 4.6cm -Offloading No -Treatment Response Procedure Tolerated Well [See Physician Procedure note for Specifics] Pain Scale: 0-10 Numeric [Pain] -Is Patient Pain Free? Yes Debridement Note Post-Debridement Measurements/Treatment WC - Nurse 2 - General Ulcer CM Notes Start: 12/20/18 10:07 Freq: Status: Active Protocol: Activity Type Activity Date Activity User E-Sign Co-Sign Detail Recorded Client Recorded Date Recorded By Document 12/20/18 10:46 LIANE [id number] 12/20/18 10:47 LIANE 12/20/18 10:46 Wound Center Nurse 2 #1 RT ISCHIUM- POST OP -Time 10:46 -Correct Patient Yes -Correct Side, Site, Position Yes -Correct Procedure Yes -Procedure Performed Yes -Type of Procedure Debridement -Clinical Debridement Muscle -Post Debridement Size (cm) - Length 6.2 -Post Debridement Size (cm) - Width 3.7 -Post Debridement Size (cm) - Depth 2.0 -Total Square Cm 22.94 -Wound/Ulcer Outcome Not Healed -Ulcer Cleansing Rinsed/ Irrigated with Saline -Foul Odor after Cleansing No -Bioengineered Tissue No -Other tunnel 10-1:00 4.6cm -Offloading No -Treatment Response Procedure Tolerated Well Pain Scale: 0-10 Numeric Is Patient Pain Free? Yes Wound debrided: #1 Right ischial area. Laterality: Right Wound Grade/Stage: IV. Type of Debridement: Excisional debridement Anesthesia Used: 4% Lidocaine Solution Depth: Down to and including healthy tissue, in the subcutaneous layer, to muscle, to bone - bone is palpable but not debrided. Percentage of wound debrided: 100 Instrument Used: 7mm curette Tissue Removed: subcutaneous tissue and muscle. Severity: Fat Layer Exposed - muscle is exposed. Bone is palpable but not debrided. Amount of bleeding with debridement: Mild Bleeding Controlled with: Pressure Patient tolerated procedure well Assessment/Plan Assessment: 1. Right ischial pressure sore, stage IV. 2. Paraplegia. 3. Chronic refractory osteomyelitis. 4. s/p excision right ischial pressure sore, Stage IV, with partial ostectomy for osteomyelitis. Plan: Continue the Dakin's dressing changes. A wound culture was obtained on 05/17/18 that showed Enterococcus faecalis and Enterococcus avium. His Augmentin was stopped due to hives. A CT Pelvis was done on 11/07/17. It was suspicious for osteomyelitis. A repeat CT Pelvis was done on 05/17/18. Once again osteomyel itis is suspected and cannot be ruled out. Since osteomyelitis is still suspected despite surgery, wound care, and antibiotics, I feel he qualifies for chronic refractory osteomyelitis. He would benefit from HBO treatments for this. HBO has been denied. Prealbumin from 11/18/17 was 21.3. Encourage nutritional supplementation with protein to help the healing process. Because of the increased moisture and presence of some undermining, and the difficulty with po antibiotics, he may ultimately need IV antibiotics and additional operative debridement. Before any additional surgery, would proceed with HBO treatments first. Would reapply at that time for benefits. Patient and his family state they are not interested in a muscle flap for wound closure, a colostomy to help keep bacteria out of the wound or a PICC line for antibiotics. Follow up 2 weeks.
[2019-01-03 09:35] VITALS: BP 82/68; PULSE 99; RESP 18; TEMP 36.4
--- NOTE | 2019-01-03 23:05 | PCM.WC.PN ---
Type of Wound Date of Service: 01/03/19 Chief Complaint: Right ischial pressure sore, Stage IV. History of Wound: Surgery 11/17/17 - Excision right ischial pressure sore, Stage IV, with partial ostectomy for osteomyelitis. Wound care -Dakin's. Operative culture, bone and soft tissue - Enterobacter cloacae. Preop culture showed Staphylococcus haemolyticus and Aerococcus viridans. He was discharged on Vancomycin, and Levaquin, and Diflucan. Another wound culture from 01/11/18 showed Staphylococcus lentus and Granulicatella adiacens. He was started on Doxycycline and stopped it because of GI issues. Another wound culture was obtained on 03/29/18. It showed Citrobacter freundii, Enterococcus faecalis, Streptococcus mitis/orallis, and Corynebacterium minutissimum. He was started on Augmentin and Levaquin. He states he has stopped the Augmentin because of diarrhea. He finished the Levaquin. On 05/17/18, another wound culture was done because of persistent moisture in the ulcer. It showed Enterococcus faecalis and Enterococcus avium. He was started on Augmentin. He was encouraged to eat yogurt to minimize his GI issues. This was stopped because he broke out in hives. He is not interested in IV antibiotics at this time. Prealbumin from 11/18/17 was 21.3. Encourage nutritional supplementation with protein to help the healing process. CT Pelvis was done on 11/07/17. It showed right buttocks and upper posterior thigh decubitus ulcer with granulation tissue and air pocket extending to the ischial tuberosity appear larger when compared to the previous study. There is osteosclerosis in the ischial tuberosity with irregular periosteal bone formation suggesting chronic osteomyelitis. A repeat CT Pelvis was done on 05/17/18. It showed bony irregularity about the right greater trochanter which is unchanged. There is a large right-sided decubitus ulcer. The possibility of osteomyelitis in the ischial tuberosity cannot be completely ruled out. Today he denies fever. His appetite is good. The undermining in the ulcer is stable. Patient is refusing any further surgeries for debridement or a flap for closure. HBO was not approved. Progress of Wound: Improved. - Physical Exam Vital Signs Temp Pulse Resp BP 97.5 F L 99 18 82/68 L 01/03/19 09:35 01/03/19 09:35 01/03/19 09:35 01/03/19 09:35 Wound Measurements and Assessment WC - Nurse 1 - General Ulcer Measurement Start: 12/20/18 10:07 Freq: Status: Active Protocol: Activity Type Activity Date Activity User E-Sign Co-Sign Detail Recorded Client Recorded Date Recorded By Document 01/03/19 09:35 [id number] 01/03/19 09:51 01/03/19 09:35 Wound Center Nurse 1 [Ulcer Assessment] #1 RT ISCHIUM- POST OP -Combined with other wound No -Current Size (cm) - Length 6.5 -Current Size (cm) - Width 3.5 -Current Size (cm) - Depth 2.9 -Total Square Cm 22.75 -Photo Taken No -Epithelialization Medium 34-66% -Undermining/Tunneling Yes -Undermining/Tunneling Starts (O' 10 clock) -Undermining/Tunneling Ends (O'clock) 12 -Maximum Distance (cm) 2.9 -Circular Undermining No -Classification - Thickness Full Thickness with Exposed Support Structure -Classification - Pressure Ulcer Stage 3 -Exudate Type Serosanguineous -Wound Margin Distinct, Outline Attached -Granulation Amt Medium (34-66%) -Granulation Quality Red -Slough/Fibrin No -Necrosis Amt None Present (0 %) -Structure Exposed Fat Layer Exposed -Texture (Elizabeth-wound Skin Appearance) No Abnormality, Assessed -Moisture (Elizabeth-wound Skin Appearance No Abnormality, ) Assessed -Color (Elizabeth-wound Skin Appearance) No Abnormality, Assessed -Temperature (Elizabeth-wound Skin No Abnormality Appearance) (Pt Warm) -Tenderness on Palpation (Elizabeth-wound No Skin Appearance) -Ulcer Cleansing SOAP & WATER -Foul Odor after Cleansing No -Anesthetic Used 4% Lidocaine Solution [Edema Assessment] -Lower Limb Edema Present NA WC - Nurse 2 - General Ulcer CM Notes Start: 12/20/18 10:07 Freq: Status: Active Protocol: Activity Type Activity Date Activity User E-Sign Co-Sign Detail Recorded Client Recorded Date Recorded By Document 01/03/19 10:08 LIANE [id number] 01/03/19 10:12 LIANE 01/03/19 10:08 Wound Center Nurse 2 [Procedure/Treatment] #1 RT ISCHIUM- POST OP -Time 10:09 -Correct Patient Yes -Correct Side, Site, Position Yes -Correct Procedure Yes -Procedure Performed Yes -Type of Procedure Debridement -Clinical Debridement Muscle -Post Debridement Size (cm) - Length 5.7 -Post Debridement Size (cm) - Width 4.5 -Post Debridement Size (cm) - Depth 1.5 -Total Square Cm 25.65 -Wound/Ulcer Outcome Not Healed -Ulcer Cleansing Rinsed/ Irrigated with Saline -Foul Odor after Cleansing No -Bioengineered Tissue No -Bleeding Controlled with Pressure -Other tunnel 4.7cm -Offloading No -Treatment Response Procedure Tolerated Well [See Physician Procedure note for Specifics] Pain Scale: 0-10 Numeric [Pain] -Is Patient Pain Free? Yes Debridement Note Post-Debridement Measurements/Treatment WC - Nurse 2 - General Ulcer CM Notes Start: 12/20/18 10:07 Freq: Status: Active Protocol: Activity Type Activity Date Activity User E-Sign Co-Sign Detail Recorded Client Recorded Date Recorded By Document 12/20/18 10:46 [id number] 12/20/18 10:47 Document 01/03/19 10:08 [id number] 01/03/19 10:12 12/20/18 01/03/19 10:46 10:08 Wound Center Nurse 2 #1 RT ISCHIUM- POST OP -Time 10:46 10:09 -Correct Patient Yes Yes -Correct Side, Site, Position Yes Yes -Correct Procedure Yes Yes -Procedure Performed Yes Yes -Type of Procedure Debridement Debridement -Clinical Debridement Muscle Muscle -Post Debridement Size (cm) - Length 6.2 5.7 -Post Debridement Size (cm) - Width 3.7 4.5 -Post Debridement Size (cm) - Depth 2.0 1.5 -Total Square Cm 22.94 25.65 -Wound/Ulcer Outcome Not Healed Not Healed -Ulcer Cleansing Rinsed/ Rinsed/ Irrigated with Irrigated with Saline Saline -Foul Odor after Cleansing No No -Bioengineered Tissue No No -Bleeding Controlled with Pressure -Other tunnel 10-1:00 tunnel 4.7cm 4.6cm -Offloading No No -Treatment Response Procedure Procedure Tolerated Well Tolerated Well Pain Scale: 0-10 Numeric Is Patient Pain Free? Yes Yes Wound debrided: #1 Right ischial area. Laterality: Right Wound Grade/Stage: IV. Type of Debridement: Excisional debridement Anesthesia Used: 4% Lidocaine Solution Depth: Down to and including healthy tissue, in the subcutaneous layer, to muscle, to bone - bone is palpable but not debrided. Percentage of wound debrided: 100 Instrument Used: 5mm curette Tissue Removed: subcutaneous tissue and muscle. Severity: Fat Layer Exposed - muscle is exposed. bone is palpable but not debrided. Amount of bleeding with debridement: Mild Bleeding Controlled with: Pressure Patient tolerated procedure well Assessment/Plan Assessment: 1. Right ischial pressure sore, stage IV. 2. Paraplegia. 3. Chronic refractory osteomyelitis. 4. s/p excision right ischial pressure sore, Stage IV, with partial ostectomy for osteomyelitis. Plan: Continue the Dakin's dressing changes. A wound culture was obtained on 05/17/18 that showed Enterococcus faecalis and Enterococcus avium. His Augmentin was stopped due to hives. A CT Pelvis was done on 11/07/17. It was suspicious for osteomyelitis. A repeat CT Pelvis was done on 05/17/18. Once again osteomyelitis is suspected and cannot be ruled out. Since osteomyelitis is still suspected despite surgery, wound care, and antibiotics, I feel he qualifies for chronic refractory osteomyelitis. He would benefit from HBO treatments for this. HBO has been denied. Prealbumin from 11/18/17 was 21.3. Encourage nutritional supplementation with protein to help the healing process. Because of the increased moisture and presence of some undermining, and the difficulty with po antibiotics, he may ultimately need IV antibiotics and additional operative debridement. Before any additional surgery, would proceed with HBO treatments first. Would reapply at that time for benefits. Patient and his family state they are not interested in a muscle flap for wound closure, a colostomy to help keep bacteria out of the wound or a PICC line for antibiotics. Even though he is not interested in a muscle flap at this time, operative debridement was still discussed with him. Intermittent operative debridements sometimes are necessary to continue the healing process. Sometimes enough bursal scar tissue develops which can slow down healing. He states he will think about it, but is leaning against any further surgery at this time. Follow up 3 weeks.
== END 2019-01-10 23:59 ==
LOC: WC 09:30
PROVIDERS: Family Provider Preventive Medicine Occupational Medicine; PCP Preventive Medicine Occupational Medicine; Referring Provider Nurse Practitioner Family; Visit Provider Nurse Practitioner Family
DX: L89.214 Pressure ulcer of right hip, stage 4 (principal); G82.20 Paraplegia, unspecified; M86.68 Other chronic osteomyelitis, other site
CPT/HCPCS: 11043; 11046

== ENCOUNTER 2019-02-07 09:45 | Outpatient (RCR) | payer BC, MEDICARE, SELFPAY ==
[2019-01-11 00:36] VITALS: BP 82/68; PULSE 99; RESP 18; TEMP 36.4
[2019-01-24 09:47] VITALS: BP 138/75; PULSE 99; RESP 16; TEMP 35.5
--- NOTE | 2019-01-24 13:36 | PN.PCM_ITS ---
(1) Right ischial pressure sore, stage 4 Status: Chronic Code(s): L89.314 - Pressure ulcer of right buttock, stage 4 (2) Paraplegia Status: Chronic Code(s): G82.20 - Paraplegia, unspecified (3) History of osteomyelitis Status: Chronic Code(s): Z87.39 - Personal history of other diseases of the musculoskeletal system and connective tissue (4) Paraplegic immobility syndrome Status: Chronic Code(s): M62.3 - Immobility syndrome (paraplegic) Type of Wound Date of Service: 01/24/19 Chief Complaint: Right ischial pressure sore, Stage IV. History of Wound: Surgery 11/17/17 - Excision right ischial pressure sore, Stage IV, with partial ostectomy for osteomyelitis. Wound care -Dakin's. Operative culture, bone and soft tissue - Enterobacter cloacae. Preop culture showed Staphylococcus haemolyticus and Aerococcus viridans. He was discharged on Vancomycin, and Levaquin, and Diflucan. Another wound culture from 01/11/18 showed Staphylococcus lentus and Granulicatella adiacens. He was started on Doxycycline and stopped it because of GI issues. Another wound culture was obtained on 03/29/18. It showed Citrobacter freundii, Enterococcus faecalis, Streptococcus mitis/orallis, and Corynebacterium minutissimum. He was started on Augmentin and Levaquin. He states he has stopped the Augmentin because of diarrhea. He finished the Levaquin. On 05/17/18, another wound culture was done because of persistent moisture in the ulcer. It showed Enterococcus faecalis and Enterococcus avium. He was started on Augmentin. He was encouraged to eat yogurt to minimize his GI issues. This was stopped because he broke out in hives. He is not interested in IV antibiotics at this time. Prealbumin from 11/18/17 was 21.3. Encourage nutritional supplementation with protein to help the healing process. CT Pelvis was done on 11/07/17. It showed right buttocks and upper posterior thigh decubitus ulcer with granulation tissue and air pocket extending to the ischial tuberosity appear larger when compared to the previous study. There is osteosclerosis in the ischial tuberosity with irregular periosteal bone formation suggesting chronic osteomyelitis. A repeat CT Pelvis was done on 05/17/18. It showed bony irregularity about the right greater trochanter which is unchanged. There is a large right-sided decubitus ulcer. The possibility of osteomyelitis in the ischial tuberosity cannot be completely ruled out. Today he denies fever. His appetite is good. The undermining in the ulcer is stable. Patient is refusing any further surgeries for debridement or a flap for closure. HBO was not approved. He is interested in a surgical debridement and have wound VAC afterwards. Progress of Wound: Stable - Physical Exam Vital Signs Temp Pulse Resp BP 96 F L 99 16 138/75 H 01/24/19 09:47 01/24/19 09:47 01/24/19 09:47 01/24/19 09:47 General: Alert, Oriented x3, Cooperative HEENT: Atraumatic Oral: Moist Mucosa Lungs: Normal air movement Cardiovascular: Regular rate Extremities: No edema, Capillary Refill Less than 3 Seconds Skin: Ulcer/ Wound - right ischium ulcer Wound Measurements and Assessment WC - Nurse 1 - General Ulcer Measurement Start: 01/24/19 09:47 Freq: Status: Active Protocol: Activity Type Activity Date Activity User E-Sign Co-Sign Detail Recorded Client Recorded Date Recorded By Document 01/24/19 09:47 [facility] [id number] 01/24/19 09:50 BMF 01/24/19 09:47 Wound Center Nurse 1 [Ulcer Assessment] #1 RT ISCHIUM- POST OP -Combined with other wound No -Current Size (cm) - Length 4.5 -Current Size (cm) - Width 3.6 -Current Size (cm) - Depth 2 -Total Square Cm 16.20 -Photo Taken No -Epithelialization Small 1-33% -Tunneling No -Undermining/Tunneling Yes -Undermining/Tunneling Starts (O' 7 clock) -Undermining/Tunneling Ends (O'clock) 12 -Maximum Distance (cm) 4.8 -Circular Undermining No -Exudate Amt Medium -Exudate Type Serosanguineous -Wound Margin Distinct, Outline Attached -Granulation Amt Large (67-100%) -Granulation Quality Red -Texture (Elizabeth-wound Skin Appearance) Assessed, Scarring -Moisture (Elizabeth-wound Skin Appearance Assessed ) -Color (Elizabeth-wound Skin Appearance) Assessed -Temperature (Elizabeth-wound Skin No Abnormality Appearance) (Pt Warm) -Tenderness on Palpation (Elizabeth-wound No Skin Appearance) -Ulcer Cleansing Rinsed/ Irrigated with Saline -Foul Odor after Cleansing No WC - Nurse 2 - General Ulcer CM Notes Start: 01/24/19 09:47 Freq: Status: Active Protocol: Activity Type Activity Date Activity User E-Sign Co-Sign Detail Recorded Client Recorded Date Recorded By Document 01/24/19 10:04 LIANE [id number] 01/24/19 10:08 LIANE 01/24/19 10:04 Wound Center Nurse 2 [Procedure/Treatment] -Time 10:05 -Correct Patient Yes -Correct Side, Site, Position Yes -Correct Procedure Yes -Procedure Performed Yes -Type of Procedure Debridement -Clinical Debridement Muscle -Post Debridement Size (cm) - Length 6.0 -Post Debridement Size (cm) - Width 3.7 -Post Debridement Size (cm) - Depth 4.1 -Total Square Cm 22.20 -Wound/Ulcer Outcome Not Healed -Ulcer Cleansing Rinsed/ Irrigated with Saline -Foul Odor after Cleansing No -Bioengineered Tissue No -Bleeding Controlled with Pressure -Offloading No -Treatment Response Procedure Tolerated Well [See Physician Procedure note for Specifics] Pain Scale: 0-10 Numeric [Pain] -Is Patient Pain Free? Yes Musculoskeletal: No Tenderness to Palpation of Joints or Extremities Neurological: Cranial nerves II-XII grossly intact Psych/Mental Status: Normal Affect, Appropriate Debridement Note Post-Debridement Measurements/Treatment - Nurse 2 - General Ulcer CM Notes Start: 01/24/19 09:47 Freq: Status: Active Protocol: Activity Type Activity Date Activity User E-Sign Co-Sign Detail Recorded Client Recorded Date Recorded By Document 01/24/19 10:04 LIANE [id number] 01/24/19 10:08 LIANE 01/24/19 10:04 Wound Center Nurse 2 #1 RT ISCHIUM- POST OP -Time 10:05 -Correct Patient Yes -Correct Side, Site, Position Yes -Correct Procedure Yes -Procedure Performed Yes -Type of Procedure Debridement -Clinical Debridement Muscle -Post Debridement Size (cm) - Length 6.0 -Post Debridement Size (cm) - Width 3.7 -Post Debridement Size (cm) - Depth 4.1 -Total Square Cm 22.20 -Wound/Ulcer Outcome Not Healed -Ulcer Cleansing Rinsed/ Irrigated with Saline -Foul Odor after Cleansing No -Bioengineered Tissue No -Bleeding Controlled with Pressure -Offloading No -Treatment Response Procedure Tolerated Well Pain Scale: 0-10 Numeric Is Patient Pain Free? Yes Wound debrided: ischial ulcer Laterality: Right Type of Debridement: Excisional debridement Anesthesia Used: 4% Lidocaine Solution, 5% Lidocaine Gel Depth: Down to and including healthy tissue, in the subcutaneous layer Percentage of wound debrided: 100 Instrument Used: 7mm curette Tissue Removed: subcutanous tissue and slough Severity: Fat Layer Exposed Amount of bleeding with debridement: Mild Bleeding Controlled with: Pressure, Compression and gauze Patient tolerated procedure well Assessment/Plan Assessment: 1. Right ischial pressure sore, stage IV. 2. Paraplegia. 3. Chronic refractory osteomyelitis. 4. s/p excision right ischial pressure sore, Stage IV, with partial ostectomy for osteomyelitis. Plan: Continue the Dakin's dressing changes. A wound culture was obtained on 05/17/18 that showed Enterococcus faecalis and Enterococcus avium. His Augmentin was stopped due to hives. A CT Pelvis was done on 11/07/17. It was suspicious for osteomyelitis. A repeat CT Pelvis was done on 05/17/18. Once again osteomyelitis is suspected and cannot be ruled out. Since osteomyelitis is still suspected despite surgery, wound care, and antibiotics, I feel he qualifies for chronic refractory osteomyelitis. He would benefit from HBO treatments for this. HBO has been denied. Prealbumin from 11/18/17 was 21.3. Encourage nutritional supplementation with protein to help the healing process. Because of the increased moisture and presence of some undermining, and the difficulty with po antibiotics, he may ultimately need IV antibiotics and additional operative debridement. Patient is interested in further surgical debridement if he is able to get the wound VAC approved again with home health. Patient and his family state they are not interested in a muscle flap for wound closure, a colostomy to help keep bacteria out of the wound or a PICC line for antibiotics. Follow up 2 weeks to discuss surgical options with Dr. Ken. Code Visit [id number]: [id number] Mirella musc/fascia 20 sq cm/< Add On Codes: 06216 Mirella musc/fascia add-on
[2019-02-07 09:55] VITALS: BP 104/52; PULSE 97; RESP 16; TEMP 35.9
--- NOTE | 2019-02-07 18:31 | PN.PCM_ITS ---
Type of Wound Date of Service: 02/07/19 Chief Complaint: Right ischial pressure sore, Stage IV. History of Wound: Surgery 11/17/17 - Excision right ischial pressure sore, Stage IV, with partial ostectomy for osteomyelitis. Wound care -Dakin's. Operative culture, bone and soft tissue - Enterobacter cloacae. Preop culture showed Staphylococcus haemolyticus and Aerococcus viridans. He was discharged on Vancomycin, and Levaquin, and Diflucan. Another wound culture from 01/11/18 showed Staphylococcus lentus and Granulicatella adiacens. He was started on Doxycycline and stopped it because of GI issues. Another wound culture was obtained on 03/29/18. It showed Citrobacter freundii, Enterococcus faecalis, Streptococcus mitis/orallis, and Corynebacterium minutissimum. He was started on Augmentin and Levaquin. He states he has stopped the Augmentin because of diarrhea. He finished the Levaquin. On 05/17/18, another wound culture was done because of persistent moisture in the ulcer. It showed Enterococcus faecalis and Enterococcus avium. He was started on Augmentin. He was encouraged to eat yogurt to minimize his GI issues. This was stopped because he broke out in hives. He is not interested in IV antibiotics at this time. Prealbumin from 11/18/17 was 21.3. Encourage nutritional supplementation with protein to help the healing process. CT Pelvis was done on 11/07/17. It showed right buttocks and upper posterior thigh decubitus ulcer with granulation tissue and air pocket extending to the ischial tuberosity appear larger when compared to the previous study. There is osteosclerosis in the ischial tuberosity with irregular periosteal bone formation suggesting chronic osteomyelitis. A repeat CT Pelvis was done on 05/17/18. It showed bony irregularity about the right greater trochanter which is unchanged. There is a large right-sided decubitus ulcer. The possibility of osteomyelitis in the ischial tuberosity cannot be completely ruled out. Today he denies fever. His appetite is good. The undermining in the ulcer is stable. Patient was refusing any further surgeries for debridement or a flap for closure. Now he is willing to proceed with an excision of the pressure sore as long as he can get home health to assist with the VAC. Will decide at a later date about the muscle flap. Once again it was stressed to the patient that ischial pressure sores rarely heal without a flap. Their main concern has always been the fear the flap developing a recurrence in the future with tissue breakdown. I had discussed with him in the past that recurrence is always a possibility. But usually recurrences if caught early enough can be treated with wound care and sometimes readvancement of the flap. He will let me know when he wants to proceed with a flap in the future. Initally the HBO has been denied. After another excision, bone will be sent to Pathology. If osteomyelitis is still present, then will reapply for HBO treatments. Progress of Wound: Stable. - Physical Exam Vital Signs Temp Pulse Resp BP 96.6 F L 97 16 104/52 L 02/07/19 09:55 02/07/19 09:55 02/07/19 09:55 02/07/19 09:55 Wound Measurements and Assessment WC - Nurse 1 - General Ulcer Measurement Start: 01/24/19 09:47 Freq: Status: Active Protocol: Activity Type Activity Date Activity User E-Sign Co-Sign Detail Recorded Client Recorded Date Recorded By Document 02/07/19 09:55 [facility] [id number] 02/07/19 10:02 [facility] 02/07/19 09:55 Wound Center Nurse 1 [Ulcer Assessment] #1 RT ISCHIUM- POST OP -Combined with other wound No -Current Size (cm) - Length 5.5 -Current Size (cm) - Width 3.5 -Current Size (cm) - Depth 1.6 -Total Square Cm 19.25 -Photo Taken No -Epithelialization Small 1-33% -Tunneling No -Undermining/Tunneling Yes -Undermining/Tunneling Starts (O' 11 clock) -Undermining/Tunneling Ends (O'clock) 1 -Maximum Distance (cm) 4.7 -Exudate Amt Medium -Exudate Type Serosanguineous -Wound Margin Distinct, Outline Attached -Granulation Amt Large (67-100%) -Granulation Quality Red -Slough/Fibrin Yes -Necrosis Amt Small (1-33%) -Necrotic Tissue Type Adherent Slough -Texture (Elizabeth-wound Skin Appearance) Assessed, Scarring -Moisture (Elizabeth-wound Skin Appearance Assessed ) -Color (Elizabeth-wound Skin Appearance) Assessed -Temperature (Elizabeth-wound Skin No Abnormality Appearance) (Pt Warm) -Tenderness on Palpation (Elizabeth-wound No Skin Appearance) -Ulcer Cleansing Rinsed/ Irrigated with Saline -Foul Odor after Cleansing No -Anesthetic Used 4% Lidocaine Solution - Nurse 2 - General Ulcer CM Notes Start: 01/24/19 09:47 Freq: Status: Active Protocol: Activity Type Activity Date Activity User E-Sign Co-Sign Detail Recorded Client Recorded Date Recorded By Document 02/07/19 10:14 [facility]ANE [id number] 02/07/19 10:15 LIANE 02/07/19 10:14 Wound Center Nurse 2 [Procedure/Treatment] -Time 10:14 -Correct Patient Yes -Correct Side, Site, Position Yes -Correct Procedure Yes -Procedure Performed Yes -Type of Procedure Debridement -Clinical Debridement Muscle -Post Debridement Size (cm) - Length 5.5 -Post Debridement Size (cm) - Width 3.6 -Post Debridement Size (cm) - Depth 1.6 -Total Square Cm 19.80 -Wound/Ulcer Outcome Not Healed -Ulcer Cleansing Rinsed/ Irrigated with Saline -Foul Odor after Cleansing No -Bioengineered Tissue No -Bleeding Controlled with Pressure -Offloading No -Treatment Response Procedure Tolerated Well [See Physician Procedure note for Specifics] Pain Scale: 0-10 Numeric [Pain] -Is Patient Pain Free? Yes Debridement Note Post-Debridement Measurements/Treatment - Nurse 2 - General Ulcer CM Notes Start: 01/24/19 09:47 Freq: Status: Active Protocol: Activity Type Activity Date Activity User E-Sign Co-Sign Detail Recorded Client Recorded Date Recorded By Document 01/24/19 10:04 [facility]ANE [id number] 01/24/19 10:08 Document 02/07/19 10:14 LIANE [id number] 02/07/19 10:15 01/24/19 02/07/19 10:04 10:14 Wound Center Nurse 2 #1 RT ISCHIUM- POST OP -Time 10:05 10:14 -Correct Patient Yes Yes -Correct Side, Site, Position Yes Yes -Correct Procedure Yes Yes -Procedure Performed Yes Yes -Type of Procedure Debridement Debridement -Clinical Debridement Muscle Muscle -Post Debridement Size (cm) - Length 6.0 5.5 -Post Debridement Size (cm) - Width 3.7 3.6 -Post Debridement Size (cm) - Depth 4.1 1.6 -Total Square Cm 22.20 19.80 -Wound/Ulcer Outcome Not Healed Not Healed -Ulcer Cleansing Rinsed/ Rinsed/ Irrigated with Irrigated with Saline Saline -Foul Odor after Cleansing No No -Bioengineered Tissue No No -Bleeding Controlled with Pressure Pressure -Offloading No No -Treatment Response Procedure Procedure Tolerated Well Tolerated Well Pain Scale: 0-10 Numeric Is Patient Pain Free? Yes Yes Wound debrided: #1 Right ischial area. Laterality: Right Wound Grade/Stage: IV. Type of Debridement: Excisional debridement Anesthesia Used: 4% Lidocaine Solution Depth: Down to and including healthy tissue, in the subcutaneous layer, to muscle, to bone - bone is palpable but not debrided. Percentage of wound debrided: 100 Instrument Used: 7mm curette Tissue Removed: subcutaneous tissue and muscle. Severity: Fat Layer Exposed - muscle is exposed. bone is palpable but not debrided. Amount of bleeding with debridement: Mild Bleeding Controlled with: Pressure Patient tolerated procedure well Assessment/Plan Assessment: 1. Right ischial pressure sore, stage IV. 2. Paraplegia. 3. Chronic refractory osteomyelitis. 4. s/p excision right ischial pressure sore, Stage IV, with partial ostectomy for osteomyelitis. Plan: Continue the Dakin's dressing changes and will alternate with Silver dressing changes. A wound culture was obtained on 05/17/18 that showed Enterococcus faecalis and Enterococcus avium. His Augmentin was stopped due to hives. A CT Pelvis was done on 11/07/17. It was suspicious for osteomyelitis. A repeat CT Pelvis was done on 05/17/18. Once again osteomyelitis is suspected and cannot be ruled out. Since osteomyelitis is still suspected despite surgery, wound care, and antibiotics, I feel he qualifies for chronic refractory osteomyelitis. He would benefit from HBO treatments for this. HBO has been denied for now. Prealbumin from 11/18/17 was 21.3. Encourage nutritional supplementation with protein to help the healing process. Because of the occasional moisture and presence of some undermining, and the difficulty with po antibiotics, he may ultimately need IV antibiotics and additional operative debridement. Patient and his family state they were not interested in a muscle flap for wound closure, a colostomy to help keep bacteria out of the wound or a PICC line for antibiotics. Even though he is not interested in a muscle flap at this time, operative debridement was still discussed with him. Intermittent operative debridements sometimes are necessary to continue the healing process. Sometimes enough bursal scar tissue develops which can slow down healing. He states he will think about it, and has decided to proceed with the excision of the pressure sore as long as home health can assist with the VAC dressing changes. Surgery would be done under general anesthesia with a surgical observation overnight stay in the hospital. Will obtain another CT scan at that time and check another Prealbumin. He is still deciding about a muscle flap at some point in the future. Once again it was discussed with him and his family that the pressure sore in this area rarely heals without a muscle flap especially a Stage IV pressure sore involving the bone. Follow up 3 weeks.
== END 2019-02-10 23:59 ==
LOC: WC 09:45
PROVIDERS: Family Provider Preventive Medicine Occupational Medicine; PCP Preventive Medicine Occupational Medicine; Referring Provider Nurse Practitioner Family; Visit Provider Nurse Practitioner Family
DX: L89.214 Pressure ulcer of right hip, stage 4 (principal); G82.20 Paraplegia, unspecified; M86.68 Other chronic osteomyelitis, other site
CPT/HCPCS: 11043; 11046

== ENCOUNTER 2019-03-02 13:55 | Observation (INO) | payer BC, MEDICARE, SELFPAY ==
[2019-03-02] VITALS (11 sets, daily range): BP systolic 77–115; BP diastolic 53–82; PULSE 79–95; RESP 18; TEMP 36.3–36.8; O2SAT 95–98; BMI 22.4
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
--- NOTE | 2019-03-02 11:12 | EKG12_ITS ---
Test Reason : PREOP Blood Pressure : / mmHG Vent. Rate : 097 BPM Atrial Rate : 097 BPM P-R Int : 130 ms QRS Dur : 082 ms QT Int : 348 ms P-R-T Axes : 055 072 069 degrees QTc Int : 441 ms Sinus rhythm with occasional Premature ventricular complexes Otherwise normal ECG When compared with ECG of 16-NOV-2017 12:27, Premature ventricular complexes are now Present Confirmed by YUKI JACOBSON, HERNANDO ([id number]), scientific editor DEBBIE HUTCHINSON ([id number]) on 03/07/2019 10:16:55 AM Referred By: Addison Ken Confirmed By:HERNANDO MIRZA MD
[2019-03-02] MEDS: Lactated Ringers 1,000 ML 100 ML IV (12:09)
[2019-03-02] MEDS: Vancomycin IV 1,000 MG/200 ML BAG 200 MG IV (12:10)
--- NOTE | 2019-03-02 12:30 | PRES_PTH ---
PATIENT: ZORAIDA MOTA LOC: [facility] U#:[id number] AGE/SX: 53/M ROOM: [facility]312 RE03/02/[address]: Dr. Addison Ken MD : 1965 BED: 1 DIS: 03/03/2019 SPEC #: [id number] RECD: 03/02/19 16:08 STATUS: BRIANNA REQ #: [id number] GREGORIA: 03/02/19 12:[address]: Addison Ken DEPT: SURGICAL PATHOLOGY RECD BY: Vidal Castillo ENTERED: 03/03/19 11:23 SP TYPE: PRESS SORE CAROLA DR: Dr. Alexander Mendoza DO Tissues: A - Ischium, NOS B - Ischium, NOS Procedures: Decalcification bone/plaque Surgery Specimen Level IV HEADER OPERATION: Excision pressure sore, partial ostectomy PRE-OP DIAGNOSIS: Right ischial pressure sore, stage IV; paraplegia; chronic refractory osteomyelitis TISSUE SUBMITTED: A - Soft tissue of right ischial pressure sore, B - Bone of right ischial pressure sore MICROSCOPIC DIAGNOSIS A. Soft tissue of right ischial region, excision: Ulceration, dense granulation and associated acute and chronic inflammation. Adherent fragments of bone with mild reactive change. B. Bone of right ischial region, biopsy: Chronic change with reparative and reactive features. Focal acute osteomyelitis. AM:lucila 03/09/19 MICROSCOPIC DESCRIPTION Slides are reviewed. GROSS DESCRIPTION A - Received in fixative is one container labeled with the patient's name and designated soft tissue of right ischial pressure sore. The specimen consists of a piece of skin with underlying tissue measuring 12 x 3.5 cm and up to 2 cm in thickness. The skin surface shows central ulceration. Also present in the container are two pieces of tissue measuring in aggregate 2 x 3 x 1 cm. The deeper portion of the specimen also shows a bone. Mechanical Press Operator sections are submitted in three cassettes. Cassette is submitted after decalcification. B - Received in fixative is one container labeled with the patient's name and designated bone of right ischial pressure sore. The specimen consists of multiple fragments of bone that in aggregate measure 3 x 2.5 x 0.4 cm. The entire specimen is submitted in one cassette after decalcification. / ILDA:lucila 03/03/19 TC:2 CPT: 93976 x2, 54148 x2
[2019-03-02] MEDS: levoFLOXacin IV 500 MG/100 ML BAG 100 MG IV (13:00)
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
[2019-03-02] MEDS: Lactated Ringers 1,000 ML 60 ML IV (15:15)
[2019-03-02 17:39] LABS: Anion Gap 8 (5-15); BUN 20 mg/dL (7-18); BUN/Creat Ratio 50.4 RATIO (10-20); Calcium,Total 8.6 mg/dL (8.5-10.1); Chloride 108 mmol/L (98-107); EST Glomerular Filtration Rate 242 mL/min (>60); Est Glom Filt Rate - Afr Amer 293 mL/min (>60); Estimated Creatinine Clearance 187.11 ml/min; Glucose 121 mg/dL (74-106); Potassium 4.2 mmol/L (3.5-5.1); Sodium Level 138 mmol/L (136-145)
[2019-03-03 03:46] VITALS: BP 106/71; PULSE 95; RESP 16; TEMP 36.7; O2SAT 97
[2019-03-03 08:24] LABS: Erythrocyte Sedimentation Rate 69 mm/hr (0-20)
[2019-03-03 08:26] LABS: Hematocrit 34.5 % (40-54); Hemoglobin 10.9 g/dL (13.0-16.5); Mean Corp Hgb Conc 31.6 g/dL (32-36); Mean Corpuscular Hgb 24.8 pg (27.0-32.0); Mean Corpuscular Volume 78.4 fL (80-94); Mean Platelet Vol. 8.9 fl (6.2-12.0); Platelet Count 324 K/mm3 (150-450); RBC Distribution Width CV 14.3 % (11.6-14.6); RBC Distribution Width SD 40.6 fl (35.1-43.9); White Blood Count 10.1 K/mm3 (4.4-11.0)
[2019-03-03 08:57] LABS: ALB/GLOB Ratio 0.7 RATIO (0.9-2.4); AST(SGOT) 17 U/L (15-37); Alanine Aminotransfer ALT/SGPT 16 U/L (16-61); Albumin, Serum 2.6 g/dL (3.2-5.0); Alkaline Phosphatase 67 U/L (45-117); Anion Gap 10 (5-15); BUN 21 mg/dL (7-18); BUN/Creat Ratio 49.5 RATIO (10-20); Calcium,Total 8.5 mg/dL (8.5-10.1); Chloride 107 mmol/L (98-107); Creatinine, Serum 0.42 mg/dL (0.70-1.30); EST Glomerular Filtration Rate 224 mL/min (>60); Est Glom Filt Rate - Afr Amer 271 mL/min (>60); Globulin 3.5 g/dL (2.2-4.2); Glucose 100 mg/dL (74-106); Potassium 3.9 mmol/L (3.5-5.1); Prealbumin 17.4 mg/dL (20.0-40.0); Protein, Total 6.1 g/dL (6.4-8.2); Sodium Level 139 mmol/L (136-145)
[2019-03-03] MEDS: levoFLOXacin IV 500 MG/100 ML BAG 100 MG IV (09:42)
[2019-03-03 09:50] VITALS: BP 109/71; PULSE 84; RESP 16; TEMP 36.9; O2SAT 98
[2019-03-03] MEDS: Multivitamins,Therapeutic Tablet 1 TABLET PO (09:52)
[2019-03-03] MEDS: Tolterodine Tartrate 2 MG CAP.SA PO (09:53)
[2019-03-03] MEDS: Ascorbic Acid 500 MG Tablet PO (09:53)
--- NOTE | 2019-03-03 10:19 | NURSING ---
wound photo: right ischium
[2019-03-03] MEDS: Lactated Ringers 1,000 ML 60 ML IV (11:24)
--- NOTE | 2019-03-03 11:47 | PCM.PN.SRG ---
Subjective: Postop #1 Patient is resting comfortably. VAC applied today. - Physical Exam Vitals/I&O's: Vital Signs Temp Pulse Resp BP Pulse Ox 98.4 F 84 16 109/71 98 03/03/19 09:50 03/03/19 09:50 03/03/19 09:50 03/03/19 09:50 03/03/19 09:50 Oxygen Delivery Method Room Air Weight: 135 lb Body Mass Index (BMI) 22.4 Intake and Output for Last 24 Hours 03/01/19 03/02/19 03/03/19 23:59 23:59 23:59 Intake Total 1851 / 2051 1378 / 1378 Output Total 0 / 725 1025 / 1025 Balance 1852 / 1327 353 / 353 General: Alert, Oriented x3 HEENT: PERRLA, EOMI Oral: Moist Mucosa Neck: Supple Abdomen: Soft, Non-Distended Skin: Ulcer/ Wound - right ischial wound is stable. No active bleeding seen. VAC applied today. Neurological: Cranial nerves II-XII grossly intact Psych/Mental Status: Normal Affect, Appropriate Microbiology Past 72 Hours 03/02/19 13:38 Biopsy - Bone Wound Culture - Preliminary Mixed Gram Positive Organisms 03/02/19 13:35 Biopsy - Tissue Wound Culture - Preliminary Mixed Gram Positive Organisms Pathology - pending. Laboratory Results 03/02/19 17:15: Sodium 138, Potassium 4.2, Chloride 108 H, Carbon Dioxide 22.0, Anion Gap 8, BUN 20 H, Creatinine 0.40 L, Estim Creat Clear Calc 187.11, Est GFR (MDRD) Af Amer 293, Est GFR (MDRD) Non-Af 242, BUN/Creatinine Ratio 50.4 H, Glucose 121 H, Calcium 8.6 03/03/19 08:00: WBC 10.1, RBC 4.40 L, Hgb 10.9 L, Hct 34.5 L, MCV 78.4 L, MCH 24.8 L, MCHC 31.6 L, RDW Std Deviation 40.6, RDW Coeff of Myra 14.3, Plt Count 324, MPV 8.9, ESR 69 H 03/03/19 08:00: Sodium 139, Potassium 3.9, Chloride 107, Carbon Dioxide 22.0, Anion Gap 10, BUN 21 H, Creatinine 0.42 L, Estim Creat Clear Calc 178.20, Est GFR (MDRD) Af Amer 271, Est GFR (MDRD) Non-Af 224, BUN/Creatinine Ratio 49.5 H, Glucose 100, Calcium 8.5, Total Bilirubin 0.30, AST 17, ALT 16, Alkaline Phosphatase 67, C-React Prot Ext Range 45.30 H, Total Protein 6.1 L, Albumin 2.6 L, Globulin 3.5, Albumin/Globulin Ratio 0.7 L, Prealbumin 17.4 L 03/03/19 11:41: Vancomycin Trough Pending Current Medications Ascorbic Acid (Vitamin C) 500 mg PO DAILY@0800 [facility] Last Admin: 03/03/19 09:53 Dose: 500 mg Documented by: Bisacodyl (Dulcolax) 10 mg RECTAL QODAY [facility] Last Admin: 03/03/19 09:57 Dose: Not Given Documented by: Cholecalciferol (Vitamin D) 1,000 unit PO DAILYCM [facility] Last Admin: 03/03/19 09:53 Dose: 1,000 unit Documented by: Diazepam (Valium) 5 mg PO 4X/DAY PRN PRN PRN Reason: SPASMS Docusate Sodium (Colace) 100 mg PO DAILY [facility] Last Admin: 03/03/19 09:53 Dose: Not Given Documented by: Hydromorphone HCl (Dilaudid Inj) 0.5 mg IV Q4H PRN PRN PRN Reason: Pain Score 6-10/10 Levofloxacin (Levaquin Iv) 500 mg in 100 mls @ 100 mls/hr IV Q24 [facility] Last Infusion: 03/03/19 10:42 Dose: Infused Documented by: Lactated Ringer's () 1,000 mls @ 60 mls/hr IV .[id number] [facility] Last Admin: 03/03/19 11:24 Dose: 60 mls/hr Documented by: Vancomycin IV Pharmacy to Dose (1 ea/ Sodium Chloride) 500 mls @ 250 mls/hr IV PRN PRN; Protocol PRN Reason: Rx to Dose Vancomycin HCl 750 mg/ Sodium (Chloride) 265 mls @ 250 mls/hr IV Q8H [facility] Last Infusion: 03/03/19 04:47 Dose: Infused Documented by: Multivitamins (Multivitamin) 1 tablet PO DAILY@0800 [facility] Last Admin: 03/03/19 09:52 Dose: 1 tablet Documented by: Nutritional Formula (Fam - Menard Flavor) 1 packet PO BIDCM [facility] Last Admin: 03/03/19 09:52 Dose: 1 packet Documented by: Ondansetron HCl (Zofran) 4 mg IV Q6H PRN PRN PRN Reason: NAUSEA Oxycodone HCl (Oxyir) 10 mg PO Q4H PRN PRN PRN Reason: Pain Score 6-10/10 Promethazine HCl (Phenergan Tablet) 25 mg PO Q4H PRN PRN PRN Reason: NAUSEA/VOMITING Sodium Chloride () 10 - 40 ml IV UD PRN PRN Reason: SALINE FLUSH Tolterodine Tartrate (Detrol La) 2 mg PO DAILY [facility] Last Admin: 03/03/19 09:53 Dose: 2 mg Documented by: Medical Necessity - Tobacco Use Smoking Status: Never smoker Tobacco Use: Non-smoker Assessment/Plan All Active Problems Infected wound (Acute) Decubitus ulcer of right ischium, stage 3 (Acute) 1. Right ischial pressure sore, stage IV. 2. Paraplegia. 3. Chronic refractory osteomyelitis. 4. s/p excision right ischial pressure sore, Stage IV, with partial ostectomy for osteomyelitis. Right ischial wound is stable. No active bleeding noted. VAC applied. To be changed three times per week at 150 mmHg continuous suction. Prealbumin was 17.4. Encourage nutritional supplementation with protein to help the healing process. Operative culture shows Mixed Gram positive organisms. Was treated perioperatively with Vancomycin and Levaquin. Pathology is pending. Will send home on Levaquin. Discharge home today. Followup Wound Center on 03/14/19 at 1100am. Wrote script for Levaquin.
--- NOTE | 2019-03-03 12:23 | PCM.DC ---
You will use the following diet at home:: No restrictions, Other - encourage nutritional supplementation with protein to help the healing process. Discharge Activity: May Shower - on the days the vac is changed. May shower in (days): 2 - may shower on the days the vac is changed. May resume sexual activity in: No Restrictions Weight Bearing Status: Weight bearing as tolerated Call your doctor if your incision/area has: Continuous Slow Oozing, Sudden Increased Bleeding, Increased Pain/ Swelling, Increased Redness, Foul Smelling Discharge, Swelling at the incision site Call your doctor if you observe: Fever of 101 or Higher, Coldness, Increased Pain, Shortness of breath, Chest pain Suture Line Care: - - vac changes three times per week at 150 mmHg continuous suction. Change Dressing in (Days):: 2 - vac changes three times per week. Cleanse incision/area with: Soap & Water - may cleanse the wound with soap and water at the time of the vac dressing change., - - may shower on the days the vac is changed. Allergies/Adverse Reactions: Allergies linezolid [From Zyvox] Allergy (Verified 03/02/19 11:43) Hives Penicillins Allergy (Verified 03/02/19 11:43) Hives all tapes Allergy (Uncoded 03/02/19 11:43) blisters Medications to take at Discharge Ascorbic Acid [Vitamin C] 500 mg PO DAILY@0800 12/19/16 Cholecalciferol (Vitamin D3) [Vitamin D3] 1,000 unit PO DAILY 12/19/16 Multivitamin [Daily Multiple Vitamin] 1 each PO DAILY 12/19/16 Oxybutynin Chloride [Ditropan Xl] 10 mg PO DAILY 12/19/16 Bisacodyl [Dulcolax] 10 mg RECTAL QODAY 11/17/17 levoFLOXacin tablet [Levaquin tablet] 500 mg PO DAILY #15 tab 03/03/19 The following prescriptions were given: levoFLOXacin tablet [Levaquin tablet] 500 mg PO DAILY #15 tab Transmission Status: Sent to [facility]/pharmacy #[id number] Primary Care Physician: Alexander Mendoza DO [Primary Care Provider] - Test Results: Test results from this visit will be discussed in further detail at your follow-up appointment, if applicable. Please Follow Up With: Addison Ken MD - call [phone] if any questions. When: thursday03/14/19 at wound center at 1100am. Proposed Discharge Date: 03/03/19
[2019-03-03 12:45] LABS: Vancomycin, Trough Level 17.2 ug/mL (5.0-15.0)
--- NOTE | 2019-03-03 13:23 | PCM.RX.CS ---
Consult Pharmacy has been consulted to manage selected antiobiotic: Vancomycin Type of Consult: Follow-up Suspected Infection: Osteomyelitis Prior Doses of Antibiotics Received/Current Regimen: Patient received 1gm iv preop on 03.02.19. Initial recommendation of 750mg iv q8h. Trough level of today was 17.2 (goal range 15-20). Will continue 750mg iv q8h and get another trough level on 03.04.19. Labs: Sodium 139 mmol/L (136-145) 03/03/19 08:00 Potassium 3.9 mmol/L (3.5-5.1) 03/03/19 08:00 Chloride 107 mmol/L (98-107) 03/03/19 08:00 Carbon Dioxide 22.0 mmol/L (21.0-32.0) 03/03/19 08:00 Anion Gap 10 (5-15) 03/03/19 08:00 BUN 21 mg/dL (7-18) H 03/03/19 08:00 Creatinine 0.42 mg/dL (0.70-1.30) L 03/03/19 08:00 Est GFR (MDRD) Af Amer 271 mL/min (>60) 03/03/19 08:00 Est GFR (MDRD) Non-Af 224 mL/min (>60) 03/03/19 08:00 BUN/Creatinine Ratio 49.5 RATIO (10-20) H 03/03/19 08:00 Glucose 100 mg/dL (74-106) 03/03/19 08:00 Vancomycin Trough 17.2 ug/mL (5.0-15.0) H 03/03/19 11:41 Microbiology: Microbiology 03/02/19 13:38 Biopsy - Bone Gram Stain - Final 03/02/19 13:38 Biopsy - Bone Wound Culture - Preliminary Mixed Gram Positive Organisms 03/02/19 13:35 Biopsy - Tissue Gram Stain - Final 03/02/19 13:35 Biopsy - Tissue Wound Culture - Preliminary Mixed Gram Positive Organisms Weight used for dosin.2 kg Estimated Creatinine Clearance: 187ml/min Goal Trough: 15-20 mcg/mL Pharmacy Plan for Drug Dosing: Pharmacy Service will continue to monitor and adjust dosing as required. Follow-Up Labs: Trough Vancomycin - 03.04.19 @1130 before 1200 dose
--- NOTE | 2019-03-03 13:30 | CASEMGMT ---
TATYANA MEZA updated by wound nursing that patient will HHC at discharge and prefers [facility]. TATYANA MEZA in to see patient and confirm HHC preferences. Patient prefers [facility], who he has had in the past. RN DERRICK sent referral to [facility] and they are able to accept the patient. TATYANA MEZA updated patient.
[2019-03-03 14:15] VITALS: BP 92/53; PULSE 92; RESP 16; TEMP 37.7; O2SAT 98
== END 2019-03-03 14:15 | disposition home health service (06) ==
LOC: MS3 03-03 03:57
PROVIDERS: Admitting Provider Surgery; Family Provider Preventive Medicine Occupational Medicine; PCP Preventive Medicine Occupational Medicine; Referring Provider Surgery; Visit Provider Surgery
PROC: (CPT 15946; principal; 2019-03-02 12:15)
DX: L89.214 Pressure ulcer of right hip, stage 4 (principal); G82.20 Paraplegia, unspecified; M86.651 Other chronic osteomyelitis, right thigh; N31.9 Neuromuscular dysfunction of bladder, unspecified; G62.9 Polyneuropathy, unspecified
CPT/HCPCS: 15946; 36415; 80048; 80053; 80202; 84134; 85027; 85652; 86140; 87070; 87075; 87077; 87102; 87176; 87186; 87205; 87206; 88305; 88311; 93005; 96361; 96365; 96366; 96367; 99218; J7050; J7120; G0378; G0379; J2405

== ENCOUNTER 2019-03-14 12:18 | Inpatient (IN) | payer BC, MEDICARE, SELFPAY ==
[2019-03-02 14:53] VITALS: BMI 22.4
[2019-03-14 12:15] VITALS: BP 97/86; PULSE 89; RESP 16; TEMP 36.6; O2SAT 97
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
[2019-03-14 12:26] VITALS: BMI 21.4; BMI 21.5
--- NOTE | 2019-03-14 13:16 | NURSING ---
wound photo: right ischium
[2019-03-14] MEDS: Lactated Ringers 1,000 ML 60 ML IV (15:26)
[2019-03-14] MEDS: 0.9% Saline Lock 10 ML Syringe IV ×2 (15:29→15:33)
[2019-03-14 15:49] LABS: Hematocrit 37.4 % (40-54); Hemoglobin 11.8 g/dL (13.0-16.5); Mean Corp Hgb Conc 31.6 g/dL (32-36); Mean Corpuscular Hgb 24.8 pg (27.0-32.0); Mean Corpuscular Volume 78.6 fL (80-94); Mean Platelet Vol. 8.3 fl (6.2-12.0); Platelet Count 312 K/mm3 (150-450); RBC Distribution Width CV 14.6 % (11.6-14.6); RBC Distribution Width SD 41.5 fl (35.1-43.9); Red Blood Count 4.76 M/mm3 (4.6-6.2); White Blood Count 11.8 K/mm3 (4.4-11.0)
[2019-03-14 16:09] LABS: ALB/GLOB Ratio 0.8 RATIO (0.9-2.4); AST(SGOT) 10 U/L (15-37); Alanine Aminotransfer ALT/SGPT 17 U/L (16-61); Albumin, Serum 3.1 g/dL (3.2-5.0); Alkaline Phosphatase 77 U/L (45-117); Anion Gap 7 (5-15); BUN 20 mg/dL (7-18); BUN/Creat Ratio 34.5 RATIO (10-20); Calcium,Total 8.9 mg/dL (8.5-10.1); Chloride 104 mmol/L (98-107); Creatinine, Serum 0.58 mg/dL (0.70-1.30); EST Glomerular Filtration Rate 156 mL/min (>60); Est Glom Filt Rate - Afr Amer 189 mL/min (>60); Estimated Creatinine Clearance 123.28 ml/min; Globulin 3.8 g/dL (2.2-4.2); Glucose 155 mg/dL (74-106); Potassium 3.8 mmol/L (3.5-5.1); Prealbumin 19.3 mg/dL (20.0-40.0); Protein, Total 6.9 g/dL (6.4-8.2); Sodium Level 138 mmol/L (136-145)
[2019-03-14 16:13] LABS: Erythrocyte Sedimentation Rate 70 mm/hr (0-20)
[2019-03-14] MEDS: metroNIDAZOLE 500 MG Tablet PO ×2 (17:03→21:21)
[2019-03-14] MEDS: levoFLOXacin 500 MG Tablet PO (17:03)
[2019-03-14] MEDS: Vancomycin IV 1,000 MG/200 ML BAG 200 MG IV (17:05)
[2019-03-14 18:15] VITALS: BP 107/67; PULSE 87; RESP 16; TEMP 37.1; O2SAT 97
--- NOTE | 2019-03-14 18:16 | PCM.RX.CS ---
Consult Pharmacy has been consulted to manage selected antiobiotic: Vancomycin Type of Consult: New start Suspected Infection: Osteomyelitis Labs: Sodium 138 mmol/L (136-145) 03/14/19 15:35 Potassium 3.8 mmol/L (3.5-5.1) 03/14/19 15:35 Chloride 104 mmol/L (98-107) 03/14/19 15:35 Carbon Dioxide 27.0 mmol/L (21.0-32.0) 03/14/19 15:35 Anion Gap 7 (5-15) 03/14/19 15:35 BUN 20 mg/dL (7-18) H 03/14/19 15:35 Creatinine 0.58 mg/dL (0.70-1.30) L 03/14/19 15:35 Est GFR (MDRD) Af Amer 189 mL/min (>60) 03/14/19 15:35 Est GFR (MDRD) Non-Af 156 mL/min (>60) 03/14/19 15:35 BUN/Creatinine Ratio 34.5 RATIO (10-20) H 03/14/19 15:35 Glucose 155 mg/dL (74-106) H 03/14/19 15:35 Weight used for dosin lb 15.527 oz Estimated Creatinine Clearance: 123 Goal Trough: 15-20 mcg/mL Pharmacy Plan for Drug Dosing: Pharmacy Service will continue to monitor and adjust dosing as required. Initial dose of 1000mg given 03/14 at 1705 Calculated dose of 750mg q8h to maintain trough of 15-20 to start 03/15 at 0100 Follow-Up Labs: Trough Vancomycin
[2019-03-14 20:24] VITALS: BP 91/60; PULSE 107; RESP 16; TEMP 36.6; O2SAT 95
[2019-03-14] MEDS: Docusate Sodium 100 MG Capsule PO (21:21)
[2019-03-15 02:28] VITALS: BP 120/78; PULSE 100; RESP 16; TEMP 36.7; O2SAT 95
[2019-03-15] MEDS: Enoxaparin 40 MG/0.4 ML Syringe SC (05:36)
[2019-03-15] MEDS: metroNIDAZOLE 500 MG Tablet PO ×3 (05:36→21:34)
[2019-03-15 08:18] VITALS: BP 101/65; PULSE 93; RESP 18; TEMP 36.6; O2SAT 96
[2019-03-15] MEDS: Multivitamins,Therapeutic Tablet 1 TABLET PO (09:12)
[2019-03-15] MEDS: Ascorbic Acid 500 MG Tablet PO (09:12)
[2019-03-15] MEDS: Docusate Sodium 100 MG Capsule PO ×2 (09:13→21:34)
[2019-03-15] MEDS: Tolterodine Tartrate 2 MG CAP.SA PO (09:13)
[2019-03-15] MEDS: levoFLOXacin 500 MG Tablet PO (09:13)
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
[2019-03-15] MEDS: Lactated Ringers 1,000 ML 60 ML IV (11:06)
--- NOTE | 2019-03-15 11:30 | CASEMGMT ---
TATYANA MEZA updated that patient will need IV ATBs at discharge. TATYANA MEZA in to discuss IV ATBs at discharge. Patient prefers [facility] who he has had in the past. Patient is current with [facility] and would like to resume care with them. TATYANA MEZA called and updated [facility] regarding IV ATBs with planned discharge for 03/16/19 and start of care for [phone]. Per Tanvi at [facility], patient has [place] insurance which is billed through third republican provider and they prefer [facility] or [facility]. TATYANA MEZA updated patient and he is agreeable to [facility] infusion. TATYANA MEZA to send referral when script available.
--- NOTE | 2019-03-15 14:25 | CASEMGMT ---
Surgeon still in surgery and unable to obtain script for IV ATB. TATYANA MEZA called [facility] and faxed referral without scripts. RN DERRICK will sent script for IV ATB when received.
[2019-03-15 15:00] VITALS: BP 93/63; PULSE 97; RESP 18; TEMP 36.6; O2SAT 95
[2019-03-15 17:12] LABS: Vancomycin, Trough Level 15.7 ug/mL (5.0-15.0)
--- NOTE | 2019-03-15 17:21 | PCM.RX.CS ---
Consult Pharmacy has been consulted to manage selected antiobiotic: Vancomycin Type of Consult: Follow-up Suspected Infection: Osteomyelitis Prior Doses of Antibiotics Received/Current Regimen: Current regimen is 750mg IV q8h Labs: Sodium 138 mmol/L (136-145) 03/14/19 15:35 Potassium 3.8 mmol/L (3.5-5.1) 03/14/19 15:35 Chloride 104 mmol/L (98-107) 03/14/19 15:35 Carbon Dioxide 27.0 mmol/L (21.0-32.0) 03/14/19 15:35 Anion Gap 7 (5-15) 03/14/19 15:35 BUN 20 mg/dL (7-18) H 03/14/19 15:35 Creatinine 0.58 mg/dL (0.70-1.30) L 03/14/19 15:35 Est GFR (MDRD) Af Amer 189 mL/min (>60) 03/14/19 15:35 Est GFR (MDRD) Non-Af 156 mL/min (>60) 03/14/19 15:35 BUN/Creatinine Ratio 34.5 RATIO (10-20) H 03/14/19 15:35 Glucose 155 mg/dL (74-106) H 03/14/19 15:35 Vancomycin Trough 15.7 ug/mL (5.0-15.0) H 03/15/19 16:30 Weight used for dosin.5 kg Estimated Creatinine Clearance: 123 ml/min Goal Trough: 15-20 mcg/mL Pharmacy Plan for Drug Dosing: The trough drawn before this afternoon's dose came back as 15.7, which is within goal range of 15-20. Will continue the current dose of 750mg IV q8h and recheck a trough level in 4 days. Pharmacy Service will continue to monitor and adjust dosing as required. Follow-Up Labs: Trough Vancomycin Labs to be done on [date and time ordered]: 03/19/19 08:30
[2019-03-15 21:08] VITALS: BP 126/86; PULSE 92; RESP 18; TEMP 36.9; O2SAT 97
[2019-03-15] MEDS: Bisacodyl 10 MG Suppository RECTAL (21:34)
--- NOTE | 2019-03-15 22:29 | PCM.PN.SRG ---
Subjective: Postop #13 Patient is resting comfortably. - Physical Exam Vitals/I&O's: Vital Signs Temp Pulse Resp BP Pulse Ox 98.5 F 92 18 126/86 H 97 03/15/19 21:08 03/15/19 21:08 03/15/19 21:08 03/15/19 21:08 03/15/19 21:08 Oxygen Delivery Method Room Air Weight: 128 lb 15.527 oz Body Mass Index (BMI) 21.4 Intake and Output for Last 24 Hours 03/13/19 03/14/19 03/15/19 23:59 23:59 23:59 Intake Total 559 / 559 2835 / 2835 Output Total 500 / 500 1150 / 1150 Balance 1685 / 1685 General: Alert, Oriented x3 HEENT: PERRLA, EOMI Oral: Moist Mucosa Neck: Supple Abdomen: Soft, Non-Distended Skin: Ulcer/ Wound - right ischial wound is stable. VAC in place. Minimal drainage in the canister. Neurological: Cranial nerves II-XII grossly intact Psych/Mental Status: Normal Affect, Appropriate Laboratory Results 03/15/19 16:30: Vancomycin Trough 15.7 H Current Medications Ascorbic Acid (Vitamin C) 500 mg PO DAILY@0800 [facility] Last Admin: 03/15/19 09:12 Dose: 500 mg Documented by: Bisacodyl (Dulcolax) 10 mg RECTAL QODAY [facility] Last Admin: 03/15/19 21:34 Dose: 10 mg Documented by: Cholecalciferol (Vitamin D) 1,000 unit PO DAILY [facility] Last Admin: 03/15/19 09:13 Dose: 1,000 unit Documented by: Diazepam (Valium) 5 mg PO 4X/DAY PRN PRN PRN Reason: SPASMS Docusate Sodium (Colace) 100 mg PO BID [facility] Last Admin: 03/15/19 21:34 Dose: 100 mg Documented by: Enoxaparin Sodium (Lovenox) 40 mg SC DAILY@0600 [facility] Last Admin: 03/15/19 05:36 Dose: 40 mg Documented by: Heparin Sodium (Beef Lung) () 50 units IV UD PRN PRN Reason: PICC Line Heparin Flush Hydromorphone HCl (Dilaudid Inj) 0.5 mg IV Q4H PRN PRN PRN Reason: Pain Score 6-10/10 Lactated Ringer's () 1,000 mls @ 60 mls/hr IV .[id number] [facility] Last Infusion: 03/15/19 18:10 Dose: 60 mls/hr Documented by: Vancomycin IV Pharmacy to Dose (1 ea/ Sodium Chloride) 500 mls @ 250 mls/hr IV PRN PRN; Protocol PRN Reason: Rx to Dose Sodium Chloride () 250 mls @ 15 mls/hr IV .[id number] PRN PRN Reason: Saline Flush Vancomycin HCl 750 mg/ Sodium (Chloride) 265 mls @ 250 mls/hr IV Q8H [facility] Last Infusion: 03/15/19 18:10 Dose: Infused Documented by: Levofloxacin (Levaquin Tablet) 500 mg PO DAILY [facility] Last Admin: 03/15/19 09:13 Dose: 500 mg Documented by: Metronidazole (Flagyl) 500 mg PO TID [facility] Last Admin: 03/15/19 21:34 Dose: 500 mg Documented by: Multivitamins (Multivitamin) 1 tablet PO DAILY@0800 [facility] Last Admin: 03/15/19 09:12 Dose: 1 tablet Documented by: Nutritional Formula (Fam - [place] Flavor) 1 packet PO BIDCM [facility] Last Admin: 03/15/19 17:06 Dose: 1 packet Documented by: Ondansetron HCl (Zofran) 4 mg IV Q6H PRN PRN PRN Reason: NAUSEA Oxycodone HCl (Oxyir) 10 mg PO Q4H PRN PRN PRN Reason: Pain Score 6-10/10 Promethazine HCl (Phenergan Tablet) 25 mg PO Q4H PRN PRN PRN Reason: NAUSEA/VOMITING Sodium Chloride () 10 - 40 ml IV UD PRN PRN Reason: Open End PICC Flush Last Admin: 03/14/19 15:33 Dose: 10 ml Documented by: Sodium Chloride (0.9% Nacl (Sterile) Posiflush) 10 - 40 ml IV UD PRN PRN Reason: Port access or dressing change Tolterodine Tartrate (Detrol La) 2 mg PO DAILY [facility] Last Admin: 03/15/19 09:13 Dose: 2 mg Documented by: Medical Necessity - Tobacco Use Smoking Status: Never smoker Assessment/Plan All Active Problems Infected wound (Acute) Decubitus ulcer of right ischium, stage 3 (Acute) 1. Right ischial pressure sore, stage IV. 2. Chronic refractory osteomyelitis. 3. MRSA. 4. Paraplegia. 5. s/p excision right ischial pressure sore with partial ostectomy for osteomyelitis. Right ischial wound is stable. No active bleeding. VAC in place. Operative soft tissue culture showed MRSA, Enterococcus faecalis, Morganella morganii, and Anaerobic cocci. Bone culture showed MRSA, Streptococcus anginosus, Morganella morganii, and Anaerobic cocci. Pathology was positive for osteomyelitis. Continue IV Vancomycin. Continue PO Levaquin and Flagyl. PICC line has been placed. Prealbumin from 03/14/19 was 19.3. Encourage nutritional supplementation with protein to help the healing process. Arranging Infusion company for the IV antibiotics. Home Health had already been arranged from his recent surgery. After discharge, will followup at the Wound Center. Will evaluate at that time for HBO treatments for his osteomyelitis.
[2019-03-16 02:33] VITALS: BP 91/64; PULSE 102; RESP 18; TEMP 37.3; O2SAT 98
[2019-03-16 04:50] LABS: Hematocrit 33.2 % (40-54); Hemoglobin 10.5 g/dL (13.0-16.5); Mean Corp Hgb Conc 31.6 g/dL (32-36); Mean Corpuscular Hgb 25.1 pg (27.0-32.0); Mean Corpuscular Volume 79.2 fL (80-94); Mean Platelet Vol. 8.5 fl (6.2-12.0); Platelet Count 261 K/mm3 (150-450); RBC Distribution Width CV 14.7 % (11.6-14.6); RBC Distribution Width SD 42.3 fl (35.1-43.9); Red Blood Count 4.19 M/mm3 (4.6-6.2); White Blood Count 6.6 K/mm3 (4.4-11.0)
[2019-03-16 05:09] LABS: Anion Gap 5 (5-15); BUN 18 mg/dL (7-18); BUN/Creat Ratio 39.9 RATIO (10-20); Calcium,Total 8.4 mg/dL (8.5-10.1); Chloride 110 mmol/L (98-107); Creatinine, Serum 0.45 mg/dL (0.70-1.30); EST Glomerular Filtration Rate 209 mL/min (>60); Est Glom Filt Rate - Afr Amer 253 mL/min (>60); Estimated Creatinine Clearance 158.89 ml/min; Glucose 118 mg/dL (74-106); Potassium 3.7 mmol/L (3.5-5.1); Sodium Level 143 mmol/L (136-145)
[2019-03-16] MEDS: Lactated Ringers 1,000 ML 60 ML IV (05:38)
[2019-03-16] MEDS: metroNIDAZOLE 500 MG Tablet PO (05:38)
[2019-03-16] MEDS: Enoxaparin 40 MG/0.4 ML Syringe SC (05:39)
[2019-03-16 05:42] VITALS: BP 103/69; PULSE 104; RESP 18; TEMP 37.3; O2SAT 96
[2019-03-16] MEDS: Docusate Sodium 100 MG Capsule PO (09:10)
[2019-03-16] MEDS: Tolterodine Tartrate 2 MG CAP.SA PO (09:10)
[2019-03-16] MEDS: Multivitamins,Therapeutic Tablet 1 TABLET PO (09:12)
[2019-03-16] MEDS: levoFLOXacin 500 MG Tablet PO (09:12)
[2019-03-16] MEDS: Ascorbic Acid 500 MG Tablet PO (09:12)
[2019-03-16 09:41] VITALS: BP 104/71; PULSE 98; RESP 18; TEMP 36.8; O2SAT 95
--- NOTE | 2019-03-16 09:59 | CASEMGMT ---
TATYANA MEZA received script late in day yesterday and faxed to [facility]. TATYANA MEZA confirmed with [facility] for discharge today with start of care for 1600 today. TATYANA MEZA called and updated [facility] as well. TATYANA MEZA updated patient. TATYANA MEZA updated Dr. Ken that IV ATB and HHC setup was comfirmed.
--- NOTE | 2019-03-16 12:26 | DCINST_ITS ---
You will use the following diet at home:: No restrictions, Other - encourage nutritional supplementation with protein to help the healing process. Discharge Activity: May Shower - on the days the vac is changed., - - may be up in wheelchair no more than 30 minutes every 2 hours as long as he does pressure releases every 10 minutes for 10 seconds. Weight Bearing Status: - - may be up in wheelchair no more than 30 minutes every 2 hours as long as he does pressure releases every 10 minutes for 10 seconds. Call your doctor if your incision/area has: Continuous Slow Oozing, Sudden Increased Bleeding, Increased Pain/ Swelling, Increased Redness, Foul Smelling Discharge, Swelling at the incision site Call your doctor if you observe: Fever of 101 or Higher, Shortness of breath, Chest pain Suture Line Care: - - wound vac three times per week at 150 mmHg continuous suction. Change Dressing in (Days):: 2 - vac changes three times per week. Cleanse incision/area with: Soap & Water - may cleanse the wound with soap and water at the time of the vac change., - - may shower on the days the vac is changed. Additional Dressing/Incision Instructions:: Home Health to assist with the vac changes three times per week at 150 mmHg continuous suction. May cleanse the wound with soap and water at the time of the vac change. Additional Instructions: Patient has Levaquin and Flagyl at home that he will continue. Patient may stop the Erythromycin. Allergies/Adverse Reactions: Allergies linezolid [From Zyvox] Allergy (Verified 03/02/19 11:43) Hives Penicillins Allergy (Verified 03/02/19 11:43) Hives all tapes Allergy (Uncoded 03/02/19 11:43) blisters Medications to take at Discharge Ascorbic Acid [Vitamin C] 500 mg PO DAILY@0800 12/19/16 Cholecalciferol (Vitamin D3) [Vitamin D3] 1,000 unit PO DAILY 12/19/16 Multivitamin [Daily Multiple Vitamin] 1 each PO DAILY 12/19/16 Oxybutynin Chloride [Ditropan Xl] 10 mg PO DAILY 12/19/16 levoFLOXacin tablet [Levaquin tablet] 500 mg PO DAILY #15 tab 03/03/19 metronidazole 500 mg tablet 500 mg PO TID 10 Days #30 tab 03/09/19 Vancomycin IV 750 mg IV Q8H 40 Days #120 vial 03/15/19 Bisacodyl [Dulcolax] 10 mg RECTAL QODAY #15 suppos. 03/16/19 Diazepam [Valium] 5 mg PO 4X/DAY PRN PRN #30 tablet 03/16/19 Docusate Sodium [Colace] 100 mg PO BID #30 cap 03/16/19 proMETHazine tablet [Phenergan tablet] 25 mg PO 4X/DAY PRN PRN #30 tab 03/16/19 The following prescriptions were given: Docusate Sodium [Colace] 100 mg PO BID #30 cap Transmission Status: Pending to [facility]/pharmacy #[id number] Bisacodyl [Dulcolax] 10 mg RECTAL QODAY #15 suppos. Transmission Status: Pending to [facility]/pharmacy #[id number] proMETHazine tablet [Phenergan tablet] 25 mg PO 4X/DAY PRN PRN #30 tab PRN Reason: NAUSEA/VOMITING Transmission Status: Pending to [id number] Diazepam [Valium] 5 mg PO 4X/DAY PRN PRN #30 tablet PRN Reason: Spasms Transmission Status: Sent to [facility]pharmacy [id number] Vancomycin IV 750 mg IV Q8H 40 Days #120 vial Prescription Printed Orders to be completed after discharge: CBC-Complete Blood Cnt No Diff Time Frame: 1 Week, Facility: [facility], Location: [facility] Comprehensive Metabolic Profil Time Frame: 1 Week, Facility: [facility], Location: [facility] CRP Time Frame: 1 Week, Facility: [facility], Location: [facility] Erythrocyte Sed Rate Time Frame: 1 Week, Facility: [facility], Location: [facility] Vancomycin, Trough Level Time Frame: 1 Week, Facility: [facility], Location: [facility] Primary Care Physician: Alexander Mendoza DO [Primary Care Provider] - Test Results: Test results from this visit will be discussed in further detail at your follow- up appointment, if applicable. Please Follow Up With: Addison Ken MD - call [phone] if any questions. When: thursday03/28/[address] [facility] at 1130am Proposed Discharge Date: 03/16/19
--- NOTE | 2019-03-16 12:37 | PCM.DC.SUM ---
Discharge Date and Diagnosis Date of Admission: 03/14/19 Date of Discharge: 03/16/19 - Primary Discharge Diagnosis Right ischial pressure sore, stage IV. Chronic refractory osteomyelitis. - Secondary Discharge Diagnosis Paraplegia MRSA. Hospital Course and Treatment Imaging Results: None. 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 Soft tissue culture showed MRSA, Enterococcus faecalis, Morganella morganii, and Anaerobic cocci. Bone culture showed MRSA, Streptococcus anginosus, Morganella morganii, and Anaerobic cocci. He was started on Levaquin, Erythromycin, and Flagyl. Pathology was positive for osteomyelitis. He comes in today for placement of a PICC line and to start IV antibiotics. Will start Vancomycin. He will continue the Levaquin and Flagyl. After the PICC line was placed, he was set up for IV antibiotics at home. He has a VAC which was changed during the hospitalization. Once Home Health was coordinated with the infusion company, he was discharged home in satisfactory condition. He was discharged on Vancomycin IV. He has Levaquin and Flagyl at home that he will continue. Wrote scripts for Colace for constipation (30 tabs) and a refill and for Dulcolax suppository (15) and 6 refills. Wrote script for Phenergan for nausea (30 tabs) and a refill. Wrote script for Valium for spasm (30 tabs). Followup at the Wound Center on Thursday03/28/19. He will have weekly labs (CBC, CMP, ESR, CRP, and Vancomycin Trough). Will have Pharmacy dose the Vancomycin. - Physical Exam Vitals/I&O's: Vital Signs Temp Pulse Resp BP Pulse Ox 98.3 F 98 18 104/71 95 03/16/19 09:41 03/16/19 09:41 03/16/19 09:41 03/16/19 09:41 03/16/19 09:41 Oxygen Delivery Method Room Air Weight: 128 lb 15.527 oz Body Mass Index (BMI) 21.4 Intake and Output for Last 24 Hours 12/06/0103/15/19 03/16/19 23:59 23:59 23:59 Intake Total 559 / 559 2835 / 3135 2362 / 2362 Output Total 500 / 500 1150 / 1450 1700 / 1700 Balance 59 / 59 1685 / 1685 662 / 662 General: Alert, Oriented x3 HEENT: PERRLA, EOMI Oral: Moist Mucosa Neck: Supple Abdomen: Soft, Non-Distended Skin: Ulcer/ Wound - right ischial wound is stable. VAC in place. Neurological: Cranial nerves II-XII grossly intact Psych/Mental Status: Normal Affect, Appropriate Laboratory Results 03/15/19 16:30: Vancomycin Trough 15.7 H 03/16/19 04:30: WBC 6.6, RBC 4.19 L, Hgb 10.5 L, Hct 33.2 L, MCV 79.2 L, MCH 25.1 L, MCHC 31.6 L, RDW Std Deviation 42.3, RDW Coeff of Myra 14.7 H, Plt Count 261, MPV 8.5 03/16/19 04:30: Sodium 143, Potassium 3.7, Chloride 110 H, Carbon Dioxide 28.0, Anion Gap 5, BUN 18, Creatinine 0.45 L, Estim Creat Clear Calc 158.89, Est GFR (MDRD) Af Amer 253, Est GFR (MDRD) Non-Af 209, BUN/Creatinine Ratio 39.9 H, Glucose 118 H, Calcium 8.4 L Current Medications Ascorbic Acid (Vitamin C) 500 mg PO DAILY@0800 [facility] Last Admin: 03/16/19 09:12 Dose: 500 mg Documented by: Bisacodyl (Dulcolax) 10 mg RECTAL QODAY [facility] Last Admin: 03/15/19 21:34 Dose: 10 mg Documented by: Cholecalciferol (Vitamin D) 1,000 unit PO DAILY [facility] Last Admin: 03/16/19 09:12 Dose: 1,000 unit Documented by: Diazepam (Valium) 5 mg PO 4X/DAY PRN PRN PRN Reason: SPASMS Docusate Sodium (Colace) 100 mg PO BID [facility] Last Admin: 03/16/19 09:10 Dose: 100 mg Documented by: Enoxaparin Sodium (Lovenox) 40 mg SC DAILY@0600 [facility] Last Admin: 03/16/19 05:39 Dose: 40 mg Documented by: Heparin Sodium (Beef Lung) () 50 units IV UD PRN PRN Reason: PICC Line Heparin Flush Hydromorphone HCl (Dilaudid Inj) 0.5 mg IV Q4H PRN PRN PRN Reason: Pain Score 6-10/10 Lactated Ringer's () 1,000 mls @ 60 mls/hr IV .[id number] [facility] Last Infusion: 03/16/19 09:15 Dose: 60 mls/hr Documented by: Vancomycin IV Pharmacy to Dose (1 ea/ Sodium Chloride) 500 mls @ 250 mls/hr IV PRN PRN; Protocol PRN Reason: Rx to Dose Sodium Chloride () 250 mls @ 15 mls/hr IV .[id number] PRN PRN Reason: Saline Flush Vancomycin HCl 750 mg/ Sodium (Chloride) 265 mls @ 250 mls/hr IV Q8H [facility] Last Infusion: 03/16/19 09:15 Dose: Infused Documented by: Levofloxacin (Levaquin Tablet) 500 mg PO DAILY [facility] Last Admin: 03/16/19 09:12 Dose: 500 mg Documented by: Metronidazole (Flagyl) 500 mg PO TID [facility] Last Admin: 03/16/19 05:38 Dose: 500 mg Documented by: Multivitamins (Multivitamin) 1 tablet PO DAILY@0800 [facility] Last Admin: 03/16/19 09:12 Dose: 1 tablet Documented by: Nutritional Formula (Fam - [place] Flavor) 1 packet PO BIDCM [facility] Last Admin: 03/16/19 09:10 Dose: 1 packet Documented by: Ondansetron HCl (Zofran) 4 mg IV Q6H PRN PRN PRN Reason: NAUSEA Oxycodone HCl (Oxyir) 10 mg PO Q4H PRN PRN PRN Reason: Pain Score 6-10/10 Promethazine HCl (Phenergan Tablet) 25 mg PO Q4H PRN PRN PRN Reason: NAUSEA/VOMITING Sodium Chloride () 10 - 40 ml IV UD PRN PRN Reason: Open End PICC Flush Last Admin: 03/14/19 15:33 Dose: 10 ml Documented by: Sodium Chloride (0.9% Nacl (Sterile) Posiflush) 10 - 40 ml IV UD PRN PRN Reason: Port access or dressing change Tolterodine Tartrate (Detrol La) 2 mg PO DAILY [facility] Last Admin: 03/16/19 09:10 Dose: 2 mg Documented by: Discharge Diet: No Restrictions, - - encourage nutritional supplementation with protein to help the healing process. Discharge Activity: May Shower - on the days the vac is changed., - - may be up in wheelchair no more than 30 minutes every 2 hours as long as he does pressure releases every 10 minutes for 10 seconds. Weight Bearing Status: - - may be up in wheelchair no more than 30 minutes every 2 hours as long as he does pressure releases every 10 minutes for 10 seconds. Call your doctor if your incision/area has: Continuous Slow Oozing, Sudden Increased Bleeding, Increased Pain/ Swelling, Increased Redness, Foul Smelling Discharge, Swelling at the incision site Call your doctor if you observe: Fever of 101 or Higher, Shortness of breath, Chest pain Suture Line Care: - - wound vac three times per week at 150 mmHg continuous suction. Change Dressing in (Days):: 2 - vac changes three times per week. Cleanse incision/area with: Soap & Water - may cleanse the wound with soap and water at the time of the vac change., - - may shower on the days the vac is changed. Additional Dressing/Incision Instructions:: Home Health to assist with the vac changes three times per week at 150 mmHg continuous suction. May cleanse the wound with soap and water at the time of the vac change. Home Medications: Medications to take at Discharge Ascorbic Acid [Vitamin C] 500 mg PO DAILY@0800 12/19/16 Cholecalciferol (Vitamin D3) [Vitamin D3] 1,000 unit PO DAILY 12/19/16 Multivitamin [Daily Multiple Vitamin] 1 each PO DAILY 12/19/16 Oxybutynin Chloride [Ditropan Xl] 10 mg PO DAILY 12/19/16 levoFLOXacin tablet [Levaquin tablet] 500 mg PO DAILY #15 tab 03/03/19 Vancomycin IV 750 mg IV Q8H 40 Days #120 vial 03/15/19 Bisacodyl [Dulcolax] 10 mg RECTAL QODAY #15 suppos. 03/16/19 Diazepam [Valium] 5 mg PO 4X/DAY PRN PRN #30 tab 03/16/19 Docusate Sodium [Colace] 100 mg PO BID #30 cap 03/16/19 proMETHazine tablet [Phenergan tablet] 25 mg PO 4X/DAY PRN PRN #30 tab 03/16/19 Bad tableOther Amb Orders: CBC-Complete Blood Cnt No Diff Time Frame: 1 Week, Facility: [facility], Location: [facility] Comprehensive Metabolic Profil Time Frame: 1 Week, Facility: [facility], Location: Home Health CRP Time Frame: 1 Week, Facility: [facility], Location: [facility] Erythrocyte Sed Rate Time Frame: 1 Week, Facility: [facility], Location: [facility] Vancomycin, Trough Level Time Frame: 1 Week, Facility: [facility], Location: Home Health Primary Care Physician: Alexander Mendoza DO [Primary Care Provider] - Please Follow Up With: Addison Ken MD - call [phone] if any questions. When: thursday03/28/19 at [facility] at 1130am Disposition: Home with Home Health Minutes spent on discharge:: 35 Patient Condition:: Fair Medical Necessity - Tobacco Use Smoking Status: Never smoker Meaningful Use Info Meaningful Use Diagnoses (Choose all that apply): None applicable
[2019-03-16 13:29] VITALS: BP 95/64; PULSE 99; RESP 18; TEMP 36.7; O2SAT 98
== END 2019-03-16 13:58 | disposition home health service (06) | DRG 539 ==
PROVIDERS: Admitting Provider Surgery; Family Provider Preventive Medicine Occupational Medicine; PCP Preventive Medicine Occupational Medicine; Referring Provider Surgery; Visit Provider Surgery
DX: M86.8X8 Other osteomyelitis, other site (principal); L89.314 Pressure ulcer of right buttock, stage 4; M62.3 Immobility syndrome (paraplegic); B95.62 Methicillin resistant Staphylococcus aureus infection as the cause of diseases classified elsewhere; B95.4 Other streptococcus as the cause of diseases classified elsewhere; B95.2 Enterococcus as the cause of diseases classified elsewhere; N31.9 Neuromuscular dysfunction of bladder, unspecified
CPT/HCPCS: 36415; 36569; 80048; 80053; 80202; 84134; 85027; 85652; 86140; 97802; J7050; J7120; A4216

== ENCOUNTER → 2019-03-29 12:28 | Outpatient (CLI) | payer BC, MEDICARE, SELFPAY ==
[2019-03-29 12:28] VITALS: BMI 21.4
[2019-03-29 12:55] LABS: Erythrocyte Sedimentation Rate 39 mm/hr (0-20)
[2019-03-29 12:57] LABS: Hematocrit 39.8 % (40-54); Hemoglobin 12.2 g/dL (13.0-16.5); Mean Corp Hgb Conc 30.7 g/dL (32-36); Mean Corpuscular Hgb 25.1 pg (27.0-32.0); Mean Corpuscular Volume 81.9 fL (80-94); Mean Platelet Vol. 9.2 fl (6.2-12.0); Platelet Count 284 K/mm3 (150-450); RBC Distribution Width CV 16.8 % (11.6-14.6); RBC Distribution Width SD 49.5 fl (35.1-43.9); Red Blood Count 4.86 M/mm3 (4.6-6.2); White Blood Count 7.3 K/mm3 (4.4-11.0)
[2019-03-29 13:19] LABS: ALB/GLOB Ratio 0.8 RATIO (0.9-2.4); AST(SGOT) 13 U/L (15-37); Alanine Aminotransfer ALT/SGPT 17 U/L (16-61); Albumin, Serum 2.9 g/dL (3.2-5.0); Alkaline Phosphatase 73 U/L (45-117); Anion Gap 6 (5-15); BUN 17 mg/dL (7-18); BUN/Creat Ratio 45.9 RATIO (10-20); CRP 9.03 mg/L (0.0-3.0); Calcium,Total 8.2 mg/dL (8.5-10.1); Chloride 110 mmol/L (98-107); Creatinine, Serum 0.37 mg/dL (0.70-1.30); EST Glomerular Filtration Rate 262 mL/min (>60); Est Glom Filt Rate - Afr Amer 317 mL/min (>60); Globulin 3.5 g/dL (2.2-4.2); Glucose 83 mg/dL (74-106); Protein, Total 6.4 g/dL (6.4-8.2); Sodium Level 141 mmol/L (136-145)
[2019-03-29 13:22] LABS: Vancomycin, Trough Level 12.9 ug/mL (5.0-15.0)
== END ==
PROVIDERS: Family Provider Preventive Medicine Occupational Medicine; PCP Preventive Medicine Occupational Medicine; Referring Provider Surgery; Visit Provider Surgery
DX: L89.314 Pressure ulcer of right buttock, stage 4 (principal); M86.68 Other chronic osteomyelitis, other site
CPT/HCPCS: 80053; 80202; 85027; 85652; 86140

== ENCOUNTER 2019-04-11 11:09 | Outpatient (RCR) | payer BC, MEDICARE, SELFPAY ==
[2019-03-14 12:26] VITALS: BMI 21.4
[2019-03-21 18:12] LABS: Hematocrit 37.5 % (40-54); Hemoglobin 11.6 g/dL (13.0-16.5); Mean Corp Hgb Conc 30.9 g/dL (32-36); Mean Corpuscular Hgb 24.8 pg (27.0-32.0); Mean Corpuscular Volume 80.3 fL (80-94); Mean Platelet Vol. 8.8 fl (6.2-12.0); Platelet Count 289 K/mm3 (150-450); RBC Distribution Width CV 15.6 % (11.6-14.6); RBC Distribution Width SD 44.8 fl (35.1-43.9); Red Blood Count 4.67 M/mm3 (4.6-6.2)
[2019-03-21 18:26] LABS: Erythrocyte Sedimentation Rate 52 mm/hr (0-20)
[2019-03-21 18:33] LABS: ALB/GLOB Ratio 0.9 RATIO (0.9-2.4); AST(SGOT) 14 U/L (15-37); Alanine Aminotransfer ALT/SGPT 22 U/L (16-61); Alkaline Phosphatase 65 U/L (45-117); Anion Gap 6 (5-15); BUN 20 mg/dL (7-18); BUN/Creat Ratio 39.3 RATIO (10-20); CRP 8.43 mg/L (0.0-3.0); Calcium,Total 8.8 mg/dL (8.5-10.1); Chloride 109 mmol/L (98-107); Creatinine, Serum 0.51 mg/dL (0.70-1.30); EST Glomerular Filtration Rate 182 mL/min (>60); Est Glom Filt Rate - Afr Amer 220 mL/min (>60); Globulin 3.3 g/dL (2.2-4.2); Glucose 112 mg/dL (74-106); Potassium 3.8 mmol/L (3.5-5.1); Protein, Total 6.3 g/dL (6.4-8.2); Sodium Level 142 mmol/L (136-145)
[2019-03-21 18:40] LABS: Vancomycin, Trough Level 23.7 ug/mL (5.0-15.0)
[2019-04-04 10:15] LABS: Erythrocyte Sedimentation Rate 49 mm/hr (0-20)
[2019-04-04 10:16] LABS: Hematocrit 42.7 % (40-54); Hemoglobin 13.3 g/dL (13.0-16.5); Mean Corp Hgb Conc 31.1 g/dL (32-36); Mean Corpuscular Hgb 25.3 pg (27.0-32.0); Mean Corpuscular Volume 81.2 fL (80-94); Mean Platelet Vol. 9.2 fl (6.2-12.0); Platelet Count 292 K/mm3 (150-450); RBC Distribution Width CV 16.4 % (11.6-14.6); RBC Distribution Width SD 47.6 fl (35.1-43.9); Red Blood Count 5.26 M/mm3 (4.6-6.2); White Blood Count 7.3 K/mm3 (4.4-11.0)
[2019-04-04 10:33] LABS: ALB/GLOB Ratio 0.8 RATIO (0.9-2.4); AST(SGOT) 22 U/L (15-37); Alanine Aminotransfer ALT/SGPT 29 U/L (16-61); Albumin, Serum 3.3 g/dL (3.2-5.0); Alkaline Phosphatase 80 U/L (45-117); Anion Gap 7 (5-15); BUN 26 mg/dL (7-18); BUN/Creat Ratio 47.6 RATIO (10-20); Calcium,Total 8.6 mg/dL (8.5-10.1); Chloride 106 mmol/L (98-107); Creatinine, Serum 0.55 mg/dL (0.70-1.30); EST Glomerular Filtration Rate 167 mL/min (>60); Est Glom Filt Rate - Afr Amer 202 mL/min (>60); Glucose 136 mg/dL (74-106); Potassium 3.6 mmol/L (3.5-5.1); Protein, Total 7.3 g/dL (6.4-8.2); Sodium Level 140 mmol/L (136-145)
[2019-04-04 10:35] LABS: Vancomycin, Trough Level 16.1 ug/mL (5.0-15.0)
[2019-04-11 11:28] LABS: Erythrocyte Sedimentation Rate 26 mm/hr (0-20)
[2019-04-11 11:36] LABS: Vancomycin, Trough Level 15.8 ug/mL (5.0-15.0)
[2019-04-11 11:37] LABS: Hematocrit 42.1 % (40-54); Hemoglobin 13.1 g/dL (13.0-16.5); Mean Corp Hgb Conc 31.1 g/dL (32-36); Mean Corpuscular Hgb 24.9 pg (27.0-32.0); Mean Platelet Vol. 9.3 fl (6.2-12.0); Platelet Count 298 K/mm3 (150-450); RBC Distribution Width SD 46.6 fl (35.1-43.9); Red Blood Count 5.26 M/mm3 (4.6-6.2); White Blood Count 8.2 K/mm3 (4.4-11.0)
[2019-04-11 11:38] LABS: ALB/GLOB Ratio 0.9 RATIO (0.9-2.4); AST(SGOT) 21 U/L (15-37); Alanine Aminotransfer ALT/SGPT 35 U/L (16-61); Albumin, Serum 3.3 g/dL (3.2-5.0); Alkaline Phosphatase 95 U/L (45-117); Anion Gap 7 (5-15); BUN 26 mg/dL (7-18); BUN/Creat Ratio 48.3 RATIO (10-20); Calcium,Total 8.5 mg/dL (8.5-10.1); Chloride 106 mmol/L (98-107); Creatinine, Serum 0.54 mg/dL (0.70-1.30); EST Glomerular Filtration Rate 170 mL/min (>60); Est Glom Filt Rate - Afr Amer 206 mL/min (>60); Globulin 3.8 g/dL (2.2-4.2); Glucose 134 mg/dL (74-106); Potassium 3.6 mmol/L (3.5-5.1); Protein, Total 7.1 g/dL (6.4-8.2); Sodium Level 139 mmol/L (136-145)
== END 2019-04-11 18:00 | disposition home or self-care (01) ==
LOC: HHLAB 11:09
PROVIDERS: Surgery; Family Provider Preventive Medicine Occupational Medicine; PCP Preventive Medicine Occupational Medicine; Referring Provider Preventive Medicine Occupational Medicine; Visit Provider Preventive Medicine Occupational Medicine
DX: L89.314 Pressure ulcer of right buttock, stage 4 (principal); M86.9 Osteomyelitis, unspecified; G82.20 Paraplegia, unspecified
CPT/HCPCS: 80053; 80202; 85027; 85652; 86140

== ENCOUNTER 2019-04-11 11:30 | Outpatient (RCR) | payer BC, MEDICARE, SELFPAY ==
[2019-03-02 14:53] VITALS: BMI 22.4
[2019-03-28 11:51] VITALS: BP 92/56; PULSE 88; RESP 20; TEMP 35.7; BMI 22.4
--- NOTE | 2019-03-28 17:57 | PCM.WC.PN ---
Type of Wound Date of Service: 03/28/19 Chief Complaint: Right ischial pressure sore, Stage IV. History of Wound: Surgery 03/02/19 - Excision right ischial pressure sore, Stage IV, with partial ostectomy for osteomyelitis. Wound care - VAC. Operative cultures - MRSA, Enterococcus faecalis, Morganella morganii, and Anaerobic cocci in the soft tissue and MRSA, Streptococcus anginosus, Morganella morganii, and Anaerobic cocci in the bone. He was started on IV Vancomycin, and Levaquin, and Flagyl. He has finished the Flagyl. Pathology - positive for osteomyelitis. Prealbumin from 03/14/19 was 19.3. Encourage nutritional supplementation with protein to help the healing process. Today he denies fever. His appetite is good. He has weekly labs while on Vancomycin. On 03/21/19 the labs were normal. The ALT was 22. The AST was 14. The Alkaline Phosphatase was 65. The Total Bilirubin was 0.10. BUN was 20. Creatinine was 0.51. Progress of Wound: Improved. - Physical Exam Vital Signs Temp Pulse Resp BP 96.2 F L 88 20 H 92/56 L 03/28/19 11:51 03/28/19 11:51 03/28/19 11:51 03/28/19 11:51 Wound Measurements and Assessment WC - Nurse 1 - General Ulcer Measurement Start: 03/14/19 10:20 Freq: Status: Active Protocol: Activity Type Activity Date Activity User E-Sign Co-Sign Detail Recorded Client Recorded Date Recorded By Document 03/28/19 11:51 MW [id number] 03/28/19 12:04 MW 03/28/19 11:51 Wound Center Nurse 1 [Ulcer Assessment] #2 right ischium post op -Combined with other wound No -Current Size (cm) - Length 9.6 -Current Size (cm) - Width 4.1 -Current Size (cm) - Depth 2.2 -Total Square Cm 39.36 -Date of Last Picture (Recall this 03/28/19 field) -Photo Taken Yes -Epithelialization None Present -Tunneling No -Undermining/Tunneling No -Circular Undermining No -Exudate Amt Large -Exudate Type Serosanguineous -Wound Margin Distinct, Outline Attached -Granulation Amt Large (67-100%) -Granulation Quality Red -Slough/Fibrin Yes -Necrosis Amt Small (1-33%) -Necrotic Tissue Type Adherent Slough -Structure Exposed Bone -Texture (Elizabeth-wound Skin Appearance) No Abnormality, Assessed -Moisture (Elizabeth-wound Skin Appearance No Abnormality, ) Assessed -Color (Elizabeth-wound Skin Appearance) No Abnormality, Assessed -Temperature (Elizabeth-wound Skin No Abnormality Appearance) (Pt Warm) -Tenderness on Palpation (Elizabeth-wound No Skin Appearance) -Ulcer Cleansing Rinsed/ Irrigated with Saline -Foul Odor after Cleansing No -Anesthetic Used 4% Lidocaine Solution [Edema Assessment] -Lower Limb Edema Present No WC - Nurse 2 - General Ulcer CM Notes Start: 03/14/19 10:20 Freq: Status: Active Protocol: Activity Type Activity Date Activity User E-Sign Co-Sign Detail Recorded Client Recorded Date Recorded By Document 03/28/19 12:31 LIANE [id number] 03/28/19 12:33 LIANE 03/28/19 12:31 Wound Center Nurse 2 [Procedure/Treatment] #2 right ischium post op -Time 12:32 -Correct Patient Yes -Correct Side, Site, Position Yes -Correct Procedure Yes -Procedure Performed Yes -Type of Procedure Debridement -Clinical Debridement Muscle -Post Debridement Size (cm) - Length 9.6 -Post Debridement Size (cm) - Width 4.2 -Post Debridement Size (cm) - Depth 2.2 -Total Square Cm 40.32 -Wound/Ulcer Outcome Not Healed -Ulcer Cleansing Rinsed/ Irrigated with Saline -Foul Odor after Cleansing No -Bioengineered Tissue No -Bleeding Controlled with Pressure -Offloading No -Treatment Response Procedure Tolerated Well [See Physician Procedure note for Specifics] Pain Scale: 0-10 Numeric [Pain] -Is Patient Pain Free? Yes Debridement Note Post-Debridement Measurements/Treatment WC - Nurse 2 - General Ulcer CM Notes Start: 03/14/19 10:20 Freq: Status: Active Protocol: Activity Type Activity Date Activity User E-Sign Co-Sign Detail Recorded Client Recorded Date Recorded By Document 03/28/19 12:31 LIANE [id number] 03/28/19 12:33 LIANE 03/28/19 12:31 Wound Center Nurse 2 #2 right ischium post op -Time 12:32 -Correct Patient Yes -Correct Side, Site, Position Yes -Correct Procedure Yes -Procedure Performed Yes -Type of Procedure Debridement -Clinical Debridement Muscle -Post Debridement Size (cm) - Length 9.6 -Post Debridement Size (cm) - Width 4.2 -Post Debridement Size (cm) - Depth 2.2 -Total Square Cm 40.32 -Wound/Ulcer Outcome Not Healed -Ulcer Cleansing Rinsed/ Irrigated with Saline -Foul Odor after Cleansing No -Bioengineered Tissue No -Bleeding Controlled with Pressure -Offloading No -Treatment Response Procedure Tolerated Well Pain Scale: 0-10 Numeric Is Patient Pain Free? Yes Wound debrided: #2 Right ischial area. Laterality: Right Wound Grade/Stage: IV. Type of Debridement: Excisional debridement Anesthesia Used: 4% Lidocaine Solution Depth: Down to and including healthy tissue, in the subcutaneous layer, to muscle, to bone - bone is exposed but not debrided. Percentage of wound debrided: 100 Instrument Used: 5mm curette Tissue Removed: subcutaneous tissue and muscle. Severity: Fat Layer Exposed - muscle is exposed. bone is exposed but not debrided. Amount of bleeding with debridement: Mild Bleeding Controlled with: Pressure Patient tolerated procedure well Assessment/Plan Assessment: 1. Right ischial pressure sore, stage IV. 2. Paraplegia. 3. Chronic refractory osteomyelitis. 4. s/p excision right ischial pressure sore, Stage IV, with partial ostectomy for osteomyelitis. Plan: Continue the VAC. Continue Vancomycin and Levaquin. The Flagyl has been completed. His soft tissue operative culture showed MRSA, Enterococcus faecalis, Morganella morganii, and Anaerobic cocci. His bone operative culture showed MRSA, Streptococcus anginosus, Morganella morganii, and Anaerobic cocci. His Pathology was positive for osteomyelitis. With the recent diagnosis of osteomyelitis, he would be a candidate for HBO. He will think about it and let me know. A CT Pelvis was done on 11/07/17. It was suspicious for osteomyelitis. A repeat CT Pelvis was done on 05/17/18. Once again osteomyelitis is suspected and cannot be ruled out. Prealbumin from 03/14/19 was 19.3. Encourage nutritional supplementation with protein to help the healing process. Followup 2 weeks. He is still deciding about a muscle flap at some point in the future. Once again it was discussed with him and his family that the pressure sore in this area rarely heals without a muscle flap especially a Stage IV pressure sore involving the bone. Code Visit Wound Center Charges CPT - 71640 ICD-10 - V58.49, L89.314, M86.9, G82.20
[2019-04-11 12:31] VITALS: BP 75/42; PULSE 82; RESP 18; TEMP 36.3; BMI 22.4
--- NOTE | 2019-04-11 16:17 | PCM.WC.PN ---
(1) Right ischial pressure sore, stage 4 Status: Chronic Code(s): L89.314 - Pressure ulcer of right buttock, stage 4 (2) Osteomyelitis of right side of pelvis Status: Chronic Code(s): M86.9 - Osteomyelitis, unspecified (3) Paraplegia Status: Chronic Code(s): G82.20 - Paraplegia, unspecified Type of Wound Date of Service: 04/11/19 Chief Complaint: Right ischial pressure sore, Stage IV. History of Wound: Surgery 03/02/19 - Excision right ischial pressure sore, Stage IV, with partial ostectomy for osteomyelitis. Wound care - VAC. Operative cultures - MRSA, Enterococcus faecalis, Morganella morganii, and Anaerobic cocci in the soft tissue and MRSA, Streptococcus anginosus, Morganella morganii, and Anaerobic cocci in the bone. He was started on IV Vancomycin, and Levaquin, and Flagyl. He has finished the Flagyl. Pathology - positive for osteomyelitis. Prealbumin from 03/14/19 was 19.3. Encourage nutritional supplementation with protein to help the healing process. Today he denies fever. His appetite is good. He has weekly labs while on Vancomycin. On 04/11/19 the labs were normal. The ALT was 35. The AST was 21. The Alkaline Phosphatase was 95. The Total Bilirubin was 0.40. BUN was 26. Creatinine was 0.54. Progress of Wound: Improved. - Physical Exam Vital Signs Temp Pulse Resp BP 97.4 F L 82 18 75/42 L 04/11/19 12:31 04/11/19 12:31 04/11/19 12:31 04/11/19 12:31 General: Alert, Oriented x3, Cooperative HEENT: Atraumatic, PERRLA Oral: Moist Mucosa Lungs: Normal air movement Cardiovascular: Regular rate Extremities: No edema, Capillary Refill Less than 3 Seconds Skin: Ulcer/ Wound - right ischial ulcer Wound Measurements and Assessment WC - Nurse 1 - General Ulcer Measurement Start: 03/14/19 10:20 Freq: Status: Active Protocol: Activity Type Activity Date Activity User E-Sign Co-Sign Detail Recorded Client Recorded Date Recorded By Document 04/11/19 12:31 DL [id number] 04/11/19 12:42 DL 04/11/19 12:31 Wound Center Nurse 1 [Ulcer Assessment] #2 right ischium post op -Current Size (cm) - Length 8 -Current Size (cm) - Width 4.2 -Current Size (cm) - Depth 2.2 -Total Square Cm 33.6 -Photo Taken No -Exudate Amt Medium -Exudate Type Serosanguineous -Wound Margin Distinct, Outline Attached -Granulation Amt Large (67-100%) -Granulation Quality Red -Necrosis Amt Small (1-33%) -Necrotic Tissue Type Adherent Slough -Structure Exposed Bone -Texture (Elizabeth-wound Skin Appearance) Scarring -Moisture (Elizabeth-wound Skin Appearance No Abnormality ) -Color (Elizabeth-wound Skin Appearance) No Abnormality -Temperature (Elizabeth-wound Skin No Abnormality Appearance) (Pt Warm) -Tenderness on Palpation (Elizabeth-wound No Skin Appearance) -Ulcer Cleansing Wound Cleanser -Foul Odor after Cleansing No -Anesthetic Used 4% Lidocaine Solution WC - Nurse 2 - General Ulcer CM Notes Start: 03/14/19 10:20 Freq: Status: Active Protocol: Activity Type Activity Date Activity User E-Sign Co-Sign Detail Recorded Client Recorded Date Recorded By Document 04/11/19 13:02 LIANE [id number] 04/11/19 13:04 LIANE 04/11/19 13:02 Wound Center Nurse 2 [Procedure/Treatment] -Time 13:02 -Correct Patient Yes -Correct Side, Site, Position Yes -Correct Procedure Yes -Procedure Performed Yes -Type of Procedure Debridement -Clinical Debridement Muscle -Post Debridement Size (cm) - Length 7.0 -Post Debridement Size (cm) - Width 4.3 -Post Debridement Size (cm) - Depth 4.0 -Total Square Cm 30.10 -Wound/Ulcer Outcome Not Healed -Ulcer Cleansing Rinsed/ Irrigated with Saline -Foul Odor after Cleansing No -Bioengineered Tissue No -Bleeding Controlled with Pressure -Other tunnel 12:00--4 .5cm -Offloading No -Treatment Response Procedure Tolerated Well [See Physician Procedure note for Specifics] Pain Scale: 0-10 Numeric [Pain] -Is Patient Pain Free? Yes Musculoskeletal: No Tenderness to Palpation of Joints or Extremities Neurological: Neuro grossly intact Psych/Mental Status: Normal Affect, Appropriate Debridement Note Post-Debridement Measurements/Treatment WC - Nurse 2 - General Ulcer CM Notes Start: 03/14/19 10:20 Freq: Status: Active Protocol: Activity Type Activity Date Activity User E-Sign Co-Sign Detail Recorded Client Recorded Date Recorded By Document 03/28/19 12:31 [id number] 03/28/19 12:33 Document 04/11/19 13:02 [id number] 04/11/19 13:04 03/28/19 04/11/19 12:31 13:02 Wound Center Nurse 2 #2 right ischium post op -Time 12:32 13:02 -Correct Patient Yes Yes -Correct Side, Site, Position Yes Yes -Correct Procedure Yes Yes -Procedure Performed Yes Yes -Type of Procedure Debridement Debridement -Clinical Debridement Muscle Muscle -Post Debridement Size (cm) - Length 9.6 7.0 -Post Debridement Size (cm) - Width 4.2 4.3 -Post Debridement Size (cm) - Depth 2.2 4.0 -Total Square Cm 40.32 30.10 -Wound/Ulcer Outcome Not Healed Not Healed -Ulcer Cleansing Rinsed/ Rinsed/ Irrigated with Irrigated with Saline Saline -Foul Odor after Cleansing No No -Bioengineered Tissue No No -Bleeding Controlled with Pressure Pressure -Other tunnel 12:00--4 .5cm -Offloading No No -Treatment Response Procedure Procedure Tolerated Well Tolerated Well Pain Scale: 0-10 Numeric Is Patient Pain Free? Yes Yes Wound debrided: Ischial ulcer Laterality: Right Type of Debridement: Excisional debridement Anesthesia Used: 4% Lidocaine Solution Depth: Down to and including healthy tissue, in the subcutaneous layer Percentage of wound debrided: 100 Instrument Used: 5mm curette Tissue Removed: Subcutaneous tissue and slough, to the muscle Severity: Fat Layer Exposed Amount of bleeding with debridement: Mild Bleeding Controlled with: Pressure Patient tolerated procedure well Assessment/Plan Assessment: 1. Right ischial pressure sore, stage IV. 2. Paraplegia. 3. Chronic refractory osteomyelitis. 4. s/p excision right ischial pressure sore, Stage IV, with partial ostectomy for osteomyelitis. Plan: Continue the VAC. Continue Vancomycin and Levaquin. The Flagyl has been completed. His soft tissue operative culture showed MRSA, Enterococcus faecalis, Morganella morganii, and Anaerobic cocci. His bone operative culture showed MRSA, Streptococcus anginosus, Morganella morganii, and Anaerobic cocci. His Pathology was positive for osteomyelitis. With the recent diagnosis of osteomyelitis, he would be a candidate for HBO. He will think about it and let me know. A CT Pelvis was done on 11/07/17. It was suspicious for osteomyelitis. A repeat CT Pelvis was done on 05/17/18. Once again osteomyelitis is suspected and cannot be ruled out. Prealbumin from 03/14/19 was 19.3. Encourage nutritional supplementation with protein to help the healing process. Followup 3 weeks. He is still deciding about a muscle flap at some point in the future. Once again it was discussed with him and his family that the pressure sore in this area rarely heals without a muscle flap especially a Stage IV pressure sore involving the bone. Code Visit [id number]
== END 2019-04-12 23:59 ==
LOC: WC 11:30
PROVIDERS: Family Provider Preventive Medicine Occupational Medicine; PCP Preventive Medicine Occupational Medicine; Visit Provider Nurse Practitioner Family
DX: L89.214 Pressure ulcer of right hip, stage 4 (principal); M86.68 Other chronic osteomyelitis, other site; G82.20 Paraplegia, unspecified
CPT/HCPCS: 11043; 11046; 97605; 97606

== ENCOUNTER 2019-04-25 12:29 | Outpatient (RCR) | payer BC, MEDICARE, SELFPAY ==
[2019-04-12 20:43] VITALS: BMI 21.4
[2019-04-18 14:30] LABS: Erythrocyte Sedimentation Rate 45 mm/hr (0-20)
[2019-04-18 14:33] LABS: Hematocrit 42.1 % (40-54); Hemoglobin 13.1 g/dL (13.0-16.5); Mean Corp Hgb Conc 31.1 g/dL (32-36); Mean Corpuscular Hgb 25.3 pg (27.0-32.0); Mean Corpuscular Volume 81.3 fL (80-94); Mean Platelet Vol. 9.1 fl (6.2-12.0); Platelet Count 303 K/mm3 (150-450); RBC Distribution Width CV 15.5 % (11.6-14.6); RBC Distribution Width SD 46.1 fl (35.1-43.9); Red Blood Count 5.18 M/mm3 (4.6-6.2); White Blood Count 7.5 K/mm3 (4.4-11.0)
[2019-04-18 14:41] LABS: BUN 26 mg/dL (7-18); Creatinine, Serum 0.54 mg/dL (0.70-1.30); EST Glomerular Filtration Rate 171 mL/min (>60); Glucose 91 mg/dL (74-106)
[2019-04-18 14:42] LABS: ALB/GLOB Ratio 0.9 RATIO (0.9-2.4); AST(SGOT) 18 U/L (15-37); Alanine Aminotransfer ALT/SGPT 28 U/L (16-61); Albumin, Serum 3.3 g/dL (3.2-5.0); Alkaline Phosphatase 95 U/L (45-117); Anion Gap 4 (5-15); BUN/Creat Ratio 48.4 RATIO (10-20); Calcium,Total 8.4 mg/dL (8.5-10.1); Chloride 109 mmol/L (98-107); Est Glom Filt Rate - Afr Amer 206 mL/min (>60); Globulin 3.8 g/dL (2.2-4.2); Potassium 3.9 mmol/L (3.5-5.1); Protein, Total 7.1 g/dL (6.4-8.2); Sodium Level 140 mmol/L (136-145)
[2019-04-18 14:43] LABS: Vancomycin, Trough Level 14.6 ug/mL (5.0-15.0)
[2019-04-25 13:19] LABS: Erythrocyte Sedimentation Rate 28 mm/hr (0-20)
[2019-04-25 13:21] LABS: Hematocrit 41.7 % (40-54); Hemoglobin 13.3 g/dL (13.0-16.5); Mean Corp Hgb Conc 31.9 g/dL (32-36); Mean Corpuscular Hgb 25.7 pg (27.0-32.0); Mean Corpuscular Volume 80.7 fL (80-94); Mean Platelet Vol. 9.5 fl (6.2-12.0); Platelet Count 276 K/mm3 (150-450); RBC Distribution Width CV 14.7 % (11.6-14.6); RBC Distribution Width SD 43.4 fl (35.1-43.9); Red Blood Count 5.17 M/mm3 (4.6-6.2); White Blood Count 6.5 K/mm3 (4.4-11.0)
[2019-04-25 13:43] LABS: ALB/GLOB Ratio 0.9 RATIO (0.9-2.4); AST(SGOT) 17 U/L (15-37); Alanine Aminotransfer ALT/SGPT 27 U/L (16-61); Albumin, Serum 3.3 g/dL (3.2-5.0); Alkaline Phosphatase 93 U/L (45-117); Anion Gap 6 (5-15); BUN 28 mg/dL (7-18); Calcium,Total 8.9 mg/dL (8.5-10.1); Chloride 107 mmol/L (98-107); EST Glomerular Filtration Rate 185 mL/min (>60); Est Glom Filt Rate - Afr Amer 224 mL/min (>60); Globulin 3.8 g/dL (2.2-4.2); Glucose 124 mg/dL (74-106); Potassium 3.8 mmol/L (3.5-5.1); Protein, Total 7.1 g/dL (6.4-8.2); Sodium Level 139 mmol/L (136-145)
== END 2019-04-25 18:00 | disposition home or self-care (01) ==
LOC: HHLAB 12:29
PROVIDERS: Family Provider Preventive Medicine Occupational Medicine; PCP Preventive Medicine Occupational Medicine; Referring Provider Preventive Medicine Occupational Medicine; Visit Provider Preventive Medicine Occupational Medicine
DX: L89.314 Pressure ulcer of right buttock, stage 4 (principal); M86.9 Osteomyelitis, unspecified; G82.20 Paraplegia, unspecified
CPT/HCPCS: 80053; 80202; 85027; 85652; 86140

== ENCOUNTER 2019-05-02 09:17 | Outpatient (RCR) | payer BC, MEDICARE, SELFPAY ==
[2019-04-12 20:43] VITALS: BMI 21.4
[2019-04-13 00:58] VITALS: BP 75/42; PULSE 82; RESP 18; TEMP 36.3
[2019-05-02 10:33] VITALS: BP 118/81; PULSE 102; RESP 16; TEMP 36.2; BMI 21.4
--- NOTE | 2019-05-02 17:37 | PCM.WC.PN ---
Type of Wound Date of Service: 05/02/19 Chief Complaint: Right ischial pressure sore, Stage IV. History of Wound: Surgery 03/02/19 - Excision right ischial pressure sore, Stage IV, with partial ostectomy for osteomyelitis. Wound care - VAC. Operative cultures - MRSA, Enterococcus faecalis, Morganella morganii, and Anaerobic cocci in the soft tissue and MRSA, Streptococcus anginosus, Morganella morganii, and Anaerobic cocci in the bone. He was started on IV Vancomycin, and Levaquin, and Flagyl. He has finished them. Pathology - positive for osteomyelitis. Prealbumin from 03/14/19 was 19.3. Encourage nutritional supplementation with protein to help the healing process. Today he denies fever. His appetite is good. Progress of Wound: Improved with some periwound irritation. - Physical Exam Vital Signs Temp Pulse Resp BP 97.2 F L 102 H 16 118/81 H 05/02/19 10:33 05/02/19 10:33 05/02/19 10:33 05/02/19 10:33 Wound Measurements and Assessment WC - Nurse 1 - General Ulcer Measurement Start: 05/02/19 10:33 Freq: Status: Active Protocol: Activity Type Activity Date Activity User E-Sign Co-Sign Detail Recorded Client Recorded Date Recorded By Document 05/02/19 10:33 [facility] [id number] 05/02/19 10:42 [facility] 05/02/19 10:33 Wound Center Nurse 1 [Ulcer Assessment] #2 right ischium post op -Combined with other wound No -Current Size (cm) - Length 8.3 -Current Size (cm) - Width 3.3 -Current Size (cm) - Depth 1.8 -Total Square Cm 27.39 -Photo Taken No -Epithelialization None Present -Tunneling Yes -Tunneling Position (O'clock) 10 -Tunneling Distance (cm) 2.8 -Undermining/Tunneling No -Circular Undermining No -Exudate Amt Medium -Exudate Type Serosanguineous -Wound Margin Thickened & Rolled Under -Granulation Amt Large (67-100%) -Granulation Quality Red -Slough/Fibrin Yes -Necrosis Amt Small (1-33%) -Necrotic Tissue Type Adherent Slough -Structure Exposed Bone -Texture (Elizabeth-wound Skin Appearance) Assessed, Scarring -Moisture (Elizabeth-wound Skin Appearance Assessed, ) Maceration -Color (Elizabeth-wound Skin Appearance) Assessed, Erythema,Palor -Temperature (Elizabeth-wound Skin No Abnormality Appearance) (Pt Warm) -Tenderness on Palpation (Elizabeth-wound No Skin Appearance) -Ulcer Cleansing soapy water -Foul Odor after Cleansing No -Anesthetic Used 4% Lidocaine Solution WC - Nurse 2 - General Ulcer CM Notes Start: 05/02/19 10:33 Freq: Status: Active Protocol: Activity Type Activity Date Activity User E-Sign Co-Sign Detail Recorded Client Recorded Date Recorded By Document 05/02/19 11:09 [id number] 05/02/19 11:14 05/02/19 11:09 Wound Center Nurse 2 [Procedure/Treatment] -Time 11:10 -Correct Patient Yes -Correct Side, Site, Position Yes -Correct Procedure Yes -Procedure Performed Yes -Type of Procedure Debridement -Clinical Debridement Muscle -Post Debridement Size (cm) - Length 7.4 -Post Debridement Size (cm) - Width 4.0 -Post Debridement Size (cm) - Depth 2.0 -Total Square Cm 29.60 -Wound/Ulcer Outcome Not Healed -Ulcer Cleansing Rinsed/ Irrigated with Saline -Foul Odor after Cleansing No -Bioengineered Tissue No -Bleeding Controlled with Pressure -Other tunnel 12:00--- 3.6CM -Offloading No -Treatment Response Procedure Tolerated Well [See Physician Procedure note for Specifics] Pain Scale: 0-10 Numeric [Pain] -Is Patient Pain Free? Yes Debridement Note Post-Debridement Measurements/Treatment WC - Nurse 2 - General Ulcer CM Notes Start: 05/02/19 10:33 Freq: Status: Active Protocol: Activity Type Activity Date Activity User E-Sign Co-Sign Detail Recorded Client Recorded Date Recorded By Document 05/02/19 11:09 [id number] [id number] 05/02/19 11:14 05/02/19 11:09 Wound Center Nurse 2 #2 right ischium post op -Time 11:10 -Correct Patient Yes -Correct Side, Site, Position Yes -Correct Procedure Yes -Procedure Performed Yes -Type of Procedure Debridement -Clinical Debridement Muscle -Post Debridement Size (cm) - Length 7.4 -Post Debridement Size (cm) - Width 4.0 -Post Debridement Size (cm) - Depth 2.0 -Total Square Cm 29.60 -Wound/Ulcer Outcome Not Healed -Ulcer Cleansing Rinsed/ Irrigated with Saline -Foul Odor after Cleansing No -Bioengineered Tissue No -Bleeding Controlled with Pressure -Other tunnel 12:00--- 3.6CM -Offloading No -Treatment Response Procedure Tolerated Well Pain Scale: 0-10 Numeric Is Patient Pain Free? Yes Wound debrided: #2 Right ischial area. Laterality: Right Wound Grade/Stage: IV. Type of Debridement: Excisional debridement Anesthesia Used: 4% Lidocaine Solution Depth: Down to and including healthy tissue, in the subcutaneous layer, to muscle, to bone - bone is exposed but not debrided. Percentage of wound debrided: 100 Instrument Used: 7mm curette Tissue Removed: subcutaneous tissue and muscle. Severity: Fat Layer Exposed - muscle is exposed. bone is exposed but not debrided. Amount of bleeding with debridement: Mild Bleeding Controlled with: Pressure Patient tolerated procedure well Assessment/Plan Assessment: 1. Right ischial pressure sore, stage IV. 2. Paraplegia. 3. Chronic refractory osteomyelitis. 4. s/p excision right ischial pressure sore, Stage IV, with partial ostectomy for osteomyelitis. Plan: He has some periwound irritation. Will hold the VAC with a holiday and begin Dakin's dressing changes. Today at the Wound Center, will apply Silver dressing change. His soft tissue operative culture showed MRSA, Enterococcus faecalis, Morganella morganii, and Anaerobic cocci. His bone operative culture showed MRSA, Streptococcus anginosus, Morganella morganii, and Anaerobic cocci. He was placed on Vancomycin and Levaquin and Flagyl and has finished them. Now that the IV Vancomycin is done, the PICC line was pulled today and his weekly labs are stopped as well. His Pathology was positive for osteomyelitis. With the recent diagnosis of osteomyelitis, he would be a candidate for HBO. He will think about it and let me know. He wants to proceed in the Spring. A CT Pelvis was done on 11/07/17. It was suspicious for osteomyelitis. A repeat CT Pelvis was done on 05/17/18. Once again osteomyelitis is suspected and cannot be ruled out. Prealbumin from 03/14/19 was 19.3. Encourage nutritional supplementation with protein to help the healing process. He is still deciding about a muscle flap at some point in the future. Once again it was discussed with him and his family that the pressure sore in this area rarely heals without a muscle flap especially a Stage IV pressure sore involving the bone. Followup 2 weeks. Code Visit [id number]: [id number] Global Visit - ICD-10 - V58.49, L89.314, M86.9, G82.20, A49.02
== END 2019-05-13 23:59 ==
LOC: WC 09:17
PROVIDERS: Family Provider Preventive Medicine Occupational Medicine; PCP Preventive Medicine Occupational Medicine; Visit Provider Nurse Practitioner Family
DX: L89.214 Pressure ulcer of right hip, stage 4 (principal); Z86.14 Personal history of Methicillin resistant Staphylococcus aureus infection; G82.20 Paraplegia, unspecified; M86.68 Other chronic osteomyelitis, other site
CPT/HCPCS: 11043; 11046

== ENCOUNTER 2019-06-06 11:00 | Outpatient (RCR) | payer BC, MEDICARE, SELFPAY ==
[2019-05-14 00:52] VITALS: BP 118/81; PULSE 102; RESP 16; TEMP 36.2
[2019-05-16 11:12] VITALS: BP 100/72; PULSE 94; RESP 18; TEMP 36.2; BMI 21.4
--- NOTE | 2019-05-16 15:07 | PN.PCM_ITS ---
(1) Right ischial pressure sore, stage 4 Status: Chronic Code(s): L89.314 - Pressure ulcer of right buttock, stage 4 (2) Osteomyelitis of right side of pelvis Status: Chronic Code(s): M86.9 - Osteomyelitis, unspecified (3) Paraplegia Status: Chronic Code(s): G82.20 - Paraplegia, unspecified (4) Paraplegic immobility syndrome Status: Chronic Code(s): M62.3 - Immobility syndrome (paraplegic) Type of Wound Date of Service: 05/16/19 Chief Complaint: Right ischial pressure sore, Stage IV. History of Wound: Surgery 03/02/19 - Excision right ischial pressure sore, Stage IV, with partial ostectomy for osteomyelitis. Wound care - VAC. Operative cultures - MRSA, Enterococcus faecalis, Morganella morganii, and Anaerobic cocci in the soft tissue and MRSA, Streptococcus anginosus, Morganella morganii, and Anaerobic cocci in the bone. He was started on IV Vancomycin, and Levaquin, and Flagyl. He has finished them. Pathology - positive for osteomyelitis. Prealbumin from 03/14/19 was 19.3. Encourage nutritional davis pplementation with protein to help the healing process. Today he denies fever. His appetite is good. Progress of Wound: Improved - Physical Exam Vital Signs Temp Pulse Resp BP 97.1 F L 94 18 100/72 05/16/19 11:12 05/16/19 11:12 05/16/19 11:12 05/16/19 11:12 General: Alert, Oriented x3, Cooperative HEENT: Atraumatic Oral: Moist Mucosa Lungs: Normal air movement Cardiovascular: Regular rate Extremities: Capillary Refill Less than 3 Seconds Skin: Ulcer/ Wound - right ischial ulcer Wound Measurements and Assessment WC - Nurse 1 - General Ulcer Measurement Start: 05/16/19 11:02 Freq: Status: Active Protocol: Activity Type Activity Date Activity User E-Sign Co-Sign Detail Recorded Client Recorded Date Recorded By Document 05/16/19 11:12 [id number] 05/16/19 11:17 DL 05/16/19 11:12 Wound Center Nurse 1 [Ulcer Assessment] #2 right ischium post op -Current Size (cm) - Length 8 -Current Size (cm) - Width 3.3 -Current Size (cm) - Depth 1.9 -Total Square Cm 26.4 -Photo Taken No -Exudate Amt Medium -Exudate Type Serosanguineous -Wound Margin Distinct, Outline Attached -Granulation Amt Medium (34-66%) -Granulation Quality Red -Necrosis Amt Medium (34-66%) -Necrotic Tissue Type Adherent Slough -Structure Exposed Bone -Texture (Elizabeth-wound Skin Appearance) Scarring -Moisture (Elizabeth-wound Skin Appearance No Abnormality ) -Color (Elizabeth-wound Skin Appearance) No Abnormality -Temperature (Elizabeth-wound Skin No Abnormality Appearance) (Pt Warm) -Tenderness on Palpation (Elizabeth-wound No Skin Appearance) -Ulcer Cleansing Wound Cleanser -Foul Odor after Cleansing No -Anesthetic Used 4% Lidocaine Solution - Nurse 2 - General Ulcer CM Notes Start: 05/16/19 11:02 Freq: Status: Active Protocol: Activity Type Activity Date Activity User E-Sign Co-Sign Detail Recorded Client Recorded Date Recorded By Document 05/16/19 11:39 LIANE [id number] 05/16/19 11:41 LIANE 05/16/19 11:39 Wound Center Nurse 2 [Procedure/Treatment] -Time 11:40 -Correct Patient Yes -Correct Side, Site, Position Yes -Correct Procedure Yes -Procedure Performed Yes -Clinical Debridement Muscle -Post Debridement Size (cm) - Length 8 -Post Debridement Size (cm) - Width 4.3 -Post Debridement Size (cm) - Depth 1.5 -Total Square Cm 34.4 -Wound/Ulcer Outcome Not Healed -Ulcer Cleansing Rinsed/ Irrigated with Saline -Foul Odor after Cleansing No -Bioengineered Tissue No -Bleeding Controlled with Pressure -Offloading No -Treatment Response Procedure Tolerated Well [See Physician Procedure note for Specifics] Pain Scale: 0-10 Numeric [Pain] -Is Patient Pain Free? Yes Musculoskeletal: No Tenderness to Palpation of Joints or Extremities Neurological: Neuro grossly intact Psych/Mental Status: Normal Affect, Appropriate Debridement Note Post-Debridement Measurements/Treatment - Nurse 2 - General Ulcer CM Notes Start: 05/16/19 11:02 Freq: Status: Active Protocol: Activity Type Activity Date Activity User E-Sign Co-Sign Detail Recorded Client Recorded Date Recorded By Document 05/16/19 11:39 LIANE [id number] 05/16/19 11:41 05/16/19 11:39 Wound Center Nurse 2 #2 right ischium post op -Time 11:40 -Correct Patient Yes -Correct Side, Site, Position Yes -Correct Procedure Yes -Procedure Performed Yes -Clinical Debridement Muscle -Post Debridement Size (cm) - Length 8 -Post Debridement Size (cm) - Width 4.3 -Post Debridement Size (cm) - Depth 1.5 -Total Square Cm 34.4 -Wound/Ulcer Outcome Not Healed -Ulcer Cleansing Rinsed/ Irrigated with Saline -Foul Odor after Cleansing No -Bioengineered Tissue No -Bleeding Controlled with Pressure -Offloading No -Treatment Response Procedure Tolerated Well Pain Scale: 0-10 Numeric Is Patient Pain Free? Yes Wound debrided: ischial ulcer Laterality: Right Type of Debridement: Excisional debridement Anesthesia Used: 4% Lidocaine Solution Depth: Down to and including healthy tissue, in the subcutaneous layer, to muscle Percentage of wound debrided: 100 Instrument Used: 7mm curette Tissue Removed: subcutaneous tissue and slough into the muscle with bone exposed Severity: Fat Layer Exposed Amount of bleeding with debridement: Mild Bleeding Controlled with: Pressure Patient tolerated procedure well Assessment/Plan Assessment: 1. Right ischial pressure sore, stage IV. 2. Paraplegia. 3. Chronic refractory osteomyelitis. 4. s/p excision right ischial pressure sore, Stage IV, with partial ostectomy for osteomyelitis. Plan: Periwound irritation resolved after a week off the wound VAC. Wound care is wound VAC with adaptic over the bone. His soft tissue operative culture showed MRSA, Enterococcus faecalis, Morganella morganii, and Anaerobic cocci. His bone operative culture showed MRSA, Streptococcus anginosus, Morganella morganii, and Anaerobic cocci. He was placed on Vancomycin and Levaquin and Flagyl and has finished them. Completed IV Vanc. His Pathology was positive for osteomyelitis. With the recent diagnosis of osteomyelitis, he would be a candidate for HBO. He will think about it and let me know. He wants to proceed in the Spring. A CT Pelvis was done on 11/07/17. It was suspicious for osteomyelitis. A repeat CT Pelvis was done on 05/17/18. Once again osteomyelitis is suspected and cannot be ruled out. Prealbumin from 03/14/19 was 19.3. Encourage nutritional supplementation with protein to help the healing process. He is still deciding about a muscle flap at some point in the future. Once again it was discussed with him and his family that the pressure sore in this area rarely heals without a muscle flap especially a Stage IV pressure sore involving the bone. Followup 3 weeks. Code Visit [id number]: [id number] Global Visit
[2019-06-06 11:07] VITALS: BP 154/92; PULSE 72; RESP 16; TEMP 36.6; BMI 21.4
--- NOTE | 2019-06-06 12:27 | PN.PCM_ITS ---
(1) Right ischial pressure sore, stage 4 Status: Chronic Code(s): L89.314 - Pressure ulcer of right buttock, stage 4 (2) Osteomyelitis of right side of pelvis Status: Chronic Code(s): M86.9 - Osteomyelitis, unspecified (3) Paraplegia Status: Chronic Code(s): G82.20 - Paraplegia, unspecified (4) Paraplegic immobility syndrome Status: Chronic Code(s): M62.3 - Immobility syndrome (paraplegic) Type of Wound Date of Service: 06/06/19 Chief Complaint: Right ischial pressure sore, Stage IV. History of Wound: Surgery 03/02/19 - Excision right ischial pressure sore, Stage IV, with partial ostectomy for osteomyelitis. Wound care - VAC, his VAC is malfunctioning so he will do daily Dakin's dressing changes until his new VAC arrives. Operative cultures - MRSA, Enterococcus faecalis, Morganella morganii, and Anaerobic cocci in the soft tissue and MRSA, Streptococcus anginosus, Morganella morganii, and Anaerobic cocci in the bone. He was started on IV Vancomycin, and Levaquin, and Flagyl. He has finished them. Best thology - positive for osteomyelitis. Prealbumin from 03/14/19 was 19.3. Encourage nutritional supplementation with protein to help the healing process. Today he denies fever. His appetite is good. Progress of Wound: Improved - Physical Exam Vital Signs Temp Pulse Resp BP 97.9 F 72 16 154/92 H 06/06/19 11:07 06/06/19 11:07 06/06/19 11:07 06/06/19 11:07 General: Alert, Oriented x3, Cooperative HEENT: Atraumatic Lungs: Normal air movement Cardiovascular: Regular rate Extremities: Capillary Refill Less than 3 Seconds Skin: Ulcer/ Wound - right ischial ulcer Wound Measurements and Assessment WC - Nurse 1 - General Ulcer Measurement Start: 05/16/19 11:02 Freq: Status: Active Protocol: Activity Type Activity Date Activity User E-Sign Co-Sign Detail Recorded Client Recorded Date Recorded By Document 06/06/19 11:07 MW [id number] 06/06/19 11:10 MW 06/06/19 11:07 Wound Center Nurse 1 [Ulcer Assessment] #2 right ischium post op -Combined with other wound No -Current Size (cm) - Length 8.0 -Current Size (cm) - Width 4.0 -Current Size (cm) - Depth 1.4 -Total Square Cm 32.00 -Date of Last Picture (Recall this 06/06/19 field) -Photo Taken Yes -Epithelialization None Present -Tunneling No -Undermining/Tunneling No -Circular Undermining No -Exudate Amt Large -Exudate Type Serosanguineous -Wound Margin Flat & Intact -Granulation Amt Large (67-100%) -Granulation Quality Red -Slough/Fibrin Yes -Necrosis Amt Small (1-33%) -Necrotic Tissue Type Adherent Slough -Structure Exposed Bone -Texture (Elizabeth-wound Skin Appearance) Assessed, Scarring -Moisture (Elizabeth-wound Skin Appearance No Abnormality, ) Assessed -Color (Elizabeth-wound Skin Appearance) No Abnormality, Assessed -Temperature (Elizabeth-wound Skin No Abnormality Appearance) (Pt Warm) -Tenderness on Palpation (Elizabeth-wound No Skin Appearance) -Ulcer Cleansing SOAP AND WATER -Foul Odor after Cleansing No -Anesthetic Used 4% Lidocaine Solution [Edema Assessment] -Lower Limb Edema Present No WC - Nurse 2 - General Ulcer CM Notes Start: 05/16/19 11:02 Freq: Status: Active Protocol: Activity Type Activity Date Activity User E-Sign Co-Sign Detail Recorded Client Recorded Date Recorded By Document 06/06/19 11:37 LIANE [id number] 06/06/19 11:39 LIANE 06/06/19 11:37 Wound Center Nurse 2 [Procedure/Treatment] #2 right ischium post op -Time 11:39 -Correct Patient Yes -Correct Side, Site, Position Yes -Correct Procedure Yes -Procedure Performed Yes -Type of Procedure Debridement -Clinical Debridement Muscle -Post Debridement Size (cm) - Length 8.8 -Post Debridement Size (cm) - Width 4.8 -Post Debridement Size (cm) - Depth 1.2 -Total Square Cm 42.24 -Wound/Ulcer Outcome Not Healed -Ulcer Cleansing Rinsed/ Irrigated with Saline -Foul Odor after Cleansing No -Bioengineered Tissue No -Other 01-22---3.0cm -Offloading No -Treatment Response Procedure Tolerated Well [See Physician Procedure note for Specifics] Pain Scale: 0-10 Numeric [Pain] -Is Patient Pain Free? Yes Musculoskeletal: No Tenderness to Palpation of Joints or Extremities Neurological: Neuro grossly intact Psych/Mental Status: Normal Affect, Appropriate Debridement Note Post-Debridement Measurements/Treatment - Nurse 2 - General Ulcer CM Notes Start: 05/16/19 11:02 Freq: Status: Active Protocol: Activity Type Activity Date Activity User E-Sign Co-Sign Detail Recorded Client Recorded Date Recorded By Document 05/16/19 11:39 [id number] 05/16/19 11:41 Document 06/06/19 11:37 [id number] 06/06/19 11:39 05/16/19 06/06/19 11:39 11:37 Wound Center Nurse 2 #2 right ischium post op -Time 11:40 11:39 -Correct Patient Yes Yes -Correct Side, Site, Position Yes Yes -Correct Procedure Yes Yes -Procedure Performed Yes Yes -Type of Procedure Debridement -Clinical Debridement Muscle Muscle -Post Debridement Size (cm) - Length 8 8.8 -Post Debridement Size (cm) - Width 4.3 4.8 -Post Debridement Size (cm) - Depth 1.5 1.2 -Total Square Cm 34.4 42.24 -Wound/Ulcer Outcome Not Healed Not Healed -Ulcer Cleansing Rinsed/ Rinsed/ Irrigated with Irrigated with Saline Saline -Foul Odor after Cleansing No No -Bioengineered Tissue No No -Bleeding Controlled with Pressure -Other 10-12---3.0cm -Offloading No No -Treatment Response Procedure Procedure Tolerated Well Tolerated Well Pain Scale: 0-10 Numeric Is Patient Pain Free? Yes Yes Wound debrided: ischial ulcer Laterality: Right Type of Debridement: Excisional debridement Anesthesia Used: 4% Lidocaine Solution Depth: Down to and including healthy tissue, in the subcutaneous layer, to muscle Percentage of wound debrided: 100 Instrument Used: 7mm curette Tissue Removed: Subcutanous tissue into the muscle with bone exposure Severity: Fat Layer Exposed Amount of bleeding with debridement: Mild Bleeding Controlled with: Pressure Patient tolerated procedure well Assessment/Plan Assessment: 1. Right ischial pressure sore, stage IV. 2. Paraplegia. 3. Chronic refractory osteomyelitis. 4. s/p excision right ischial pressure sore, Stage IV, with partial ostectomy for osteomyelitis. Plan: Wound care is wound VAC with adaptic over the bone. His VAC is malfunctioning so will start daily Hubertin's dressing changes until his new vac comes in. His soft tissue operative culture showed MRSA, Enterococcus faecalis, Morganella morganii, and Anaerobic cocci. His bone operative culture showed MRSA, Streptococcus anginosus, Morganella morganii, and Anaerobic cocci. He was placed on Vancomycin and Levaquin and Flagyl and has finished them. Completed IV Vanc. His Pathology was positive for osteomyelitis. With the recent diagnosis of osteomyelitis, he would be a candidate for HBO. He will think about it and let me know. He wants to proceed in the Spring. A CT Pelvis was done on 11/07/17. It was suspicious for osteomyelitis. A repeat CT Pelvis was done on 05/17/18. Once again osteomyelitis is suspected and cannot be ruled out. Prealbumin from 03/14/19 was 19.3. Encourage nutritional supplementation with protein to help the healing process. He is still deciding about a muscle flap at some point in the future. Once again it was discussed with him and his family that the pressure sore in this area rarely heals without a muscle flap especially a Stage IV pressure sore involving the bone. Followup 2 weeks. Code Visit 111xxx-113xx: [id number] Mirella musc/fascia 20 sq cm/<
== END 2019-06-11 23:59 ==
LOC: WC 11:00
PROVIDERS: Family Provider Preventive Medicine Occupational Medicine; PCP Preventive Medicine Occupational Medicine; Visit Provider Nurse Practitioner Family
DX: L89.214 Pressure ulcer of right hip, stage 4 (principal); G82.20 Paraplegia, unspecified; M62.3 Immobility syndrome (paraplegic); M86.68 Other chronic osteomyelitis, other site; Z86.14 Personal history of Methicillin resistant Staphylococcus aureus infection
CPT/HCPCS: 11043; 11046; 97605

== ENCOUNTER 2019-07-04 10:30 | Outpatient (RCR) | payer BC, MEDICARE, SELFPAY ==
[2019-06-12 00:40] VITALS: BP 154/92; PULSE 72; RESP 16; TEMP 36.6
[2019-06-20 10:15] VITALS: BP 94/73; PULSE 99; RESP 18; TEMP 36.4; BMI 21.4
--- NOTE | 2019-06-20 11:03 | PN.PCM_ITS ---
Type of Wound Date of Service: 06/20/19 Chief Complaint: Right ischial pressure sore, Stage IV. History of Wound: Surgery 03/02/19 - Excision right ischial pressure sore, Stage IV, with partial ostectomy for osteomyelitis. Wound care - VAC, his VAC is malfunctioning so he will do daily Dakin's dressing changes until his new VAC arrives. Operative cultures - MRSA, Enterococcus faecalis, Morganella morganii, and Anaerobic cocci in the soft tissue and MRSA, Streptococcus anginosus, Morganella morganii, and Anaerobic cocci in the bone. He was started on IV Vancomycin, and Levaquin, and Flagyl. He has finished them. Pathology - positive for osteomyelitis. Prealbumin from 03/14/19 was 19.3. Encourage nutritional supplementation with protein to help the healing process. Today he denies fever. His appetite is good. Progress of Wound: Improved - Physical Exam Vital Signs Temp Pulse Resp BP 97.6 F L 99 18 94/73 06/20/19 10:15 06/20/19 10:15 06/20/19 10:15 06/20/19 10:15 Wound Measurements and Assessment WC - Nurse 1 - General Ulcer Measurement Start: 06/20/19 10:15 Freq: Status: Active Protocol: Activity Type Activity Date Activity User E-Sign Co-Sign Detail Recorded Client Recorded Date Recorded By Document 06/20/19 10:15 RB [id number] 06/20/19 10:21 RB 06/20/19 10:15 Wound Center Nurse 1 [Ulcer Assessment] #2 right ischium post op -Combined with other wound No -Current Size (cm) - Length 8 -Current Size (cm) - Width 3.9 -Current Size (cm) - Depth 1.6 -Total Square Cm 31.2 -Photo Taken Yes -Tunneling No -Undermining/Tunneling Yes -Undermining/Tunneling Starts (O' 10 clock) -Undermining/Tunneling Ends (O'clock) 12 -Maximum Distance (cm) 1.9 -Circular Undermining No -Exudate Amt Large -Exudate Type Serosanguineous -Wound Margin Thickened & Rolled Under -Granulation Amt Medium (34-66%) -Granulation Quality [place] -Slough/Fibrin Yes -Necrosis Amt Medium (34-66%) -Necrotic Tissue Type Adherent Slough -Structure Exposed N/A -Texture (Elizabeth-wound Skin Appearance) Assessed, Scarring -Moisture (Elizabeth-wound Skin Appearance Assessed ) -Color (Elizabeth-wound Skin Appearance) Assessed -Temperature (Elizabeth-wound Skin No Abnormality Appearance) (Pt Warm) -Tenderness on Palpation (Elizabeth-wound No Skin Appearance) -Ulcer Cleansing Wound Cleanser -Foul Odor after Cleansing No -Anesthetic Used 4% Lidocaine Solution WC - Nurse 2 - General Ulcer CM Notes Start: 06/20/19 10:15 Freq: Status: Active Protocol: Activity Type Activity Date Activity User E-Sign Co-Sign Detail Recorded Client Recorded Date Recorded By Document 06/20/19 10:36 LIANE [id number] 06/20/19 10:42 LIANE 06/20/19 10:36 Wound Center Nurse 2 [Procedure/Treatment] -Time 10:37 -Correct Patient Yes -Correct Side, Site, Position Yes -Correct Procedure Yes -Procedure Performed Yes -Type of Procedure Debridement -Clinical Debridement Muscle -Post Debridement Size (cm) - Length 7.2 -Post Debridement Size (cm) - Width 4.2 -Post Debridement Size (cm) - Depth 1.0 -Total Square Cm 30.24 -Wound/Ulcer Outcome Not Healed -Ulcer Cleansing Rinsed/ Irrigated with Saline -Foul Odor after Cleansing No -Bioengineered Tissue No -Bleeding Controlled with Pressure -Other tunnel: 11;00-2 .5cm// 2-3:00-- 1.2cm -Offloading No -Treatment Response Procedure Tolerated Well [See Physician Procedure note for Specifics] Pain Scale: 0-10 Numeric [Pain] -Is Patient Pain Free? Yes Debridement Note Post-Debridement Measurements/Treatment - Nurse 2 - General Ulcer CM Notes Start: 06/20/19 10:15 Freq: Status: Active Protocol: Activity Type Activity Date Activity User E-Sign Co-Sign Detail Recorded Client Recorded Date Recorded By Document 06/20/19 10:36 [id number] [id number] 06/20/19 10:42 LIANE 06/20/19 10:36 Wound Center Nurse 2 #2 right ischium post op -Time 10:37 -Correct Patient Yes -Correct Side, Site, Position Yes -Correct Procedure Yes -Procedure Performed Yes -Type of Procedure Debridement -Clinical Debridement Muscle -Post Debridement Size (cm) - Length 7.2 -Post Debridement Size (cm) - Width 4.2 -Post Debridement Size (cm) - Depth 1.0 -Total Square Cm 30.24 -Wound/Ulcer Outcome Not Healed -Ulcer Cleansing Rinsed/ Irrigated with Saline -Foul Odor after Cleansing No -Bioengineered Tissue No -Bleeding Controlled with Pressure -Other tunnel: 11;00-2 .5cm// 2-3:00-- 1.2cm -Offloading No -Treatment Response Procedure Tolerated Well Pain Scale: 0-10 Numeric Is Patient Pain Free? Yes Assessment/Plan Assessment: 1. Right ischial pressure sore, stage IV. 2. Paraplegia. 3. Chronic refractory osteomyelitis. 4. s/p excision right ischial pressure sore, Stage IV, with partial ostectomy for osteomyelitis. Plan: Wound care is wound VAC with adaptic over the bone. His VAC is malfunctioning so will start daily Zac's dressing changes until his new vac comes in. His soft tissue operative culture showed MRSA, Enterococcus faecalis, Morganella morganii, and Anaerobic cocci. His bone operative culture showed MRSA, Streptococcus anginosus, Morganella morganii, and Anaerobic cocci. He was placed on Vancomycin and Levaquin and Flagyl and has finished them. Completed IV Vanc. His Pathology was positive for osteomyelitis. With the recent diagnosis of osteomyelitis, he would be a candidate for HBO. He will think about it and let me know. He wants to proceed in the Spring. A CT Pelvis was done on 11/07/17. It was suspicious for osteomyelitis. A repeat CT Pelvis was done on 05/17/18. Once again osteomyelitis is suspected and cannot be ruled out. Prealbumin from 03/14/19 was 19.3. Encourage nutritional supplementation with protein to help the healing process. He is still deciding about a muscle flap at some point in the future. Once again it was discussed with him and his family that the pressure sore in this area rarely heals without a muscle flap especially a Stage IV pressure sore involving the bone. Followup 2 weeks.
--- NOTE | 2019-06-20 15:22 | PN.PCM_ITS ---
(1) Right ischial pressure sore, stage 4 Status: Chronic Current Visit: Yes Code(s): L89.314 - Pressure ulcer of right buttock, stage 4 (2) Osteomyelitis of right side of pelvis Status: Chronic Current Visit: Yes Code(s): M86.9 - Osteomyelitis, unspecified (3) Paraplegia Status: Chronic Current Visit: Yes Code(s): G82.20 - Paraplegia, unspecified (4) Paraplegic immobility syndrome Status: Chronic Current Visit: Yes Code(s): M62.3 - Immobility syndrome (paraplegic) Type of Wound Date of Service: 06/20/19 Chief Complaint: Right ischial pressure sore, Stage IV. History of Wound: Surgery 03/02/19 - Excision right ischial pressure sore, Stage IV, with partial ostectomy for osteomyelitis. Wound care -wound VAC holiday until Thursday to give time for his periwound to heal. We will do Dakin's dressing changes daily until then. Operative cultures - MRSA, Enterococcus faecalis, Morganella morganii, and Anaerobic cocci in the soft tissue and MRSA, Streptococcus anginosus, Morganella morganii, and Anaerobic cocci in the bone. He was started on IV Vancomycin, and Levaquin, and Flagyl. He has finished the m. Pathology - positive for osteomyelitis. Prealbumin from 03/14/19 was 19.3. Encourage nutritional supplementation with protein to help the healing process. Today he denies fever. His appetite is good. Progress of Wound: Improved - Physical Exam Vital Signs Temp Pulse Resp BP 97.6 F L 99 18 94/73 06/20/19 10:15 06/20/19 10:15 06/20/19 10:15 06/20/19 10:15 General: Alert, Oriented x3, Cooperative HEENT: Atraumatic Oral: Moist Mucosa Lungs: Normal air movement Cardiovascular: Regular rate, Regular Rhythm Abdomen: Soft Extremities: Capillary Refill Less than 3 Seconds Skin: Ulcer/ Wound - Right ischial ulcer stage IV, periwound is excoriated. Wound Measurements and Assessment WC - Nurse 1 - General Ulcer Measurement Start: 06/20/19 10:15 Freq: Status: Active Protocol: Activity Type Activity Date Activity User E-Sign Co-Sign Detail Recorded Client Recorded Date Recorded By Document 06/20/19 10:15 SHERIF [id number] 06/20/19 10:21 RB 06/20/19 10:15 Wound Center Nurse 1 [Ulcer Assessment] #2 right ischium post op -Combined with other wound No -Current Size (cm) - Length 8 -Current Size (cm) - Width 3.9 -Current Size (cm) - Depth 1.6 -Total Square Cm 31.2 -Photo Taken Yes -Tunneling No -Undermining/Tunneling Yes -Undermining/Tunneling Starts (O' 10 clock) -Undermining/Tunneling Ends (O'clock) 12 -Maximum Distance (cm) 1.9 -Circular Undermining No -Exudate Amt Large -Exudate Type Serosanguineous -Wound Margin Thickened & Rolled Under -Granulation Amt Medium (34-66%) -Granulation Quality [place] -Slough/Fibrin Yes -Necrosis Amt Medium (34-66%) -Necrotic Tissue Type Adherent Slough -Structure Exposed N/A -Texture (Elizabeth-wound Skin Appearance) Assessed, Scarring -Moisture (Elizabeth-wound Skin Appearance Assessed ) -Color (Elizabeth-wound Skin Appearance) Assessed -Temperature (Elizabeth-wound Skin No Abnormality Appearance) (Pt Warm) -Tenderness on Palpation (Elizabeth-wound No Skin Appearance) -Ulcer Cleansing Wound Cleanser -Foul Odor after Cleansing No -Anesthetic Used 4% Lidocaine Solution WC - Nurse 2 - General Ulcer CM Notes Start: 06/20/19 10:15 Freq: Status: Active Protocol: Activity Type Activity Date Activity User E-Sign Co-Sign Detail Recorded Client Recorded Date Recorded By Document 06/20/19 10:36 [id number] 06/20/19 10:42 LIANE 06/20/19 10:36 Wound Center Nurse 2 [Procedure/Treatment] -Time 10:37 -Correct Patient Yes -Correct Side, Site, Position Yes -Correct Procedure Yes -Procedure Performed Yes -Type of Procedure Debridement -Clinical Debridement Muscle -Post Debridement Size (cm) - Length 7.2 -Post Debridement Size (cm) - Width 4.2 -Post Debridement Size (cm) - Depth 1.0 -Total Square Cm 30.24 -Wound/Ulcer Outcome Not Healed -Ulcer Cleansing Rinsed/ Irrigated with Saline -Foul Odor after Cleansing No -Bioengineered Tissue No -Bleeding Controlled with Pressure -Other tunnel: 11;00-2 .5cm// 2-3:00-- 1.2cm -Offloading No -Treatment Response Procedure Tolerated Well [See Physician Procedure note for Specifics] Pain Scale: 0-10 Numeric [Pain] -Is Patient Pain Free? Yes Musculoskeletal: No Tenderness to Palpation of Joints or Extremities Neurological: Neuro grossly intact Psych/Mental Status: Normal Affect, Appropriate Debridement Note Post-Debridement Measurements/Treatment WC - Nurse 2 - General Ulcer CM Notes Start: 06/20/19 10:15 Freq: Status: Active Protocol: Activity Type Activity Date Activity User E-Sign Co-Sign Detail Recorded Client Recorded Date Recorded By Document 06/20/19 10:36 LIANE [id number] 06/20/19 10:42 LIANE 06/20/19 10:36 Wound Center Nurse 2 #2 right ischium post op -Time 10:37 -Correct Patient Yes -Correct Side, Site, Position Yes -Correct Procedure Yes -Procedure Performed Yes -Type of Procedure Debridement -Clinical Debridement Muscle -Post Debridement Size (cm) - Length 7.2 -Post Debridement Size (cm) - Width 4.2 -Post Debridement Size (cm) - Depth 1.0 -Total Square Cm 30.24 -Wound/Ulcer Outcome Not Healed -Ulcer Cleansing Rinsed/ Irrigated with Saline -Foul Odor after Cleansing No -Bioengineered Tissue No -Bleeding Controlled with Pressure -Other tunnel: 11;00-2 .5cm// 2-3:00-- 1.2cm -Offloading No -Treatment Response Procedure Tolerated Well Pain Scale: 0-10 Numeric Is Patient Pain Free? Yes Wound debrided: Ischial ulcer Laterality: Right Type of Debridement: Excisional debridement Anesthesia Used: 5% Lidocaine Gel Depth: Down to and including healthy tissue, in the subcutaneous layer, to muscle Percentage of wound debrided: 100 Instrument Used: 7mm curette Tissue Removed: Subcutaneous tissue and slough into the muscle, bone exposed Severity: Fat Layer Exposed Amount of bleeding with debridement: Mild Bleeding Controlled with: Pressure Patient tolerated procedure well Assessment/Plan Active Problems Osteomyelitis of right side of pelvis (Chronic) Right ischial pressure sore, stage 4 (Chronic) Paraplegia (Chronic) Paraplegic immobility syndrome (Chronic) Assessment: 1. Right ischial pressure sore, stage IV. 2. Paraplegia. 3. Chronic refractory osteomyelitis. 4. s/p excision right ischial pressure sore, Stage IV, with partial ostectomy for osteomyelitis. Plan: Wound care is wound VAC with adaptic over the bone. He has some excoriation around his ulcer site, will do a wound VAC holiday until Thursday. We will do daily Dakin's dressing changes until the wound VAC is restarted. His soft tissue operative culture showed MRSA, Enterococcus faecalis, Morganella morganii, and Anaerobic cocci. His bone operative culture showed MRSA, Streptococcus anginosus, Morganella morganii, and Anaerobic cocci. He was placed on Vancomycin and Levaquin and Flagyl and has finished them. Completed IV Vanc. His Pathology was positive for osteomyelitis. With the recent diagnosis of osteomyelitis, he would be a candidate for HBO. He will think about it and let me know. He wants to proceed in the Spring. A CT Pelvis was done on 11/07/17. It was suspicious for osteomyelitis. A repeat CT Pelvis was done on 05/17/18. Once again osteomyelitis is suspected and cannot be ruled out. Prealbumin from 03/14/19 was 19.3. Encourage nutritional supplementation with protein to help the healing process. He is still deciding about a muscle flap at some point in the future. Once again it was discussed with him and his family that the pressure sore in this area rarely heals without a muscle flap especially a Stage IV pressure sore involving the bone. Followup 2 weeks. 111xxx-113xx: 25112 Mirella musc/fascia 20 sq cm/< Add On Codes: 70089 Mirella musc/fascia add-on
--- NOTE | 2019-06-23 10:26 | WC ---
N.O. per Noemy Palmer in regards to wound cx's. Start Bactrim DS 1 po bid x 14 days w/ 1 refill. Pt called and updated. Allergies reviewed. Rx called to [facility] per pt preference.
[2019-07-04 10:36] VITALS: BP 132/106; PULSE 78; RESP 16; TEMP 36.8; BMI 21.4
--- NOTE | 2019-07-04 17:21 | PN.PCM_ITS ---
Type of Wound Date of Service: 07/04/19 Chief Complaint: Right ischial pressure sore, Stage IV. History of Wound: Surgery 03/02/19 - Excision right ischial pressure sore, Stage IV, with partial ostectomy for osteomyelitis. Wound care -wound VAC. Operative cultures - MRSA, Enterococcus faecalis, Morganella morganii, and Anaerobic cocci in the soft tissue and MRSA, Streptococcus anginosus, Morganella morganii, and Anaerobic cocci in the bone. He was started on IV Vancomycin, and Levaquin, and Flagyl. He has finished them. Another wound culture was done on 06/20/19. It showed MRSA, Klebsiella oxytoca, Corynebacterium striatum, and Streptococcus mitis/oralis. He was placed on Clindamycin and Bactrim. Pathology - positive for osteomyelitis. Prealbumin from 03/14/19 was 19.3. Encourage nutritional supplementation with protein to help the healing process. Today he denies fever. His appetite is good. Progress of Wound: Improved. - Physical Exam Vital Signs Temp Pulse Resp BP 98.3 F 78 16 132/106 H 07/04/19 10:36 07/04/19 10:36 07/04/19 10:36 07/04/19 10:36 Wound Measurements and Assessment WC - Nurse 1 - General Ulcer Measurement Start: 06/20/19 10:15 Freq: Status: Active Protocol: Activity Type Activity Date Activity User E-Sign Co-Sign Detail Recorded Client Recorded Date Recorded By Document 07/04/19 10:36 [facility] [id number] 07/04/19 10:44 [facility] 07/04/19 10:36 Wound Center Nurse 1 [Ulcer Assessment] #2 right ischium post op -Combined with other wound No -Current Size (cm) - Length 7 -Current Size (cm) - Width 3.4 -Current Size (cm) - Depth 1 -Total Square Cm 23.8 -Photo Taken No -Epithelialization Small 1-33% -Tunneling No -Undermining/Tunneling Yes -Undermining/Tunneling Starts (O' 10 clock) -Undermining/Tunneling Ends (O'clock) 12 -Maximum Distance (cm) 2.8 -Circular Undermining No -Exudate Amt Small -Exudate Type Sanguineous -Wound Margin Distinct, Outline Attached -Granulation Amt Large (67-100%) -Granulation Quality Hyper- granulation,Red -Slough/Fibrin Yes -Necrosis Amt Small (1-33%) -Necrotic Tissue Type Adherent Slough -Structure Exposed Bone -Texture (Elizabeth-wound Skin Appearance) Assessed, Scarring -Moisture (Elizabeth-wound Skin Appearance Assessed ) -Color (Elizabeth-wound Skin Appearance) Assessed -Temperature (Elizabeth-wound Skin No Abnormality Appearance) (Pt Warm) -Tenderness on Palpation (Elizabeth-wound No Skin Appearance) -Ulcer Cleansing soapy water -Foul Odor after Cleansing No -Anesthetic Used 4% Lidocaine Solution - Nurse 2 - General Ulcer CM Notes Start: 06/20/19 10:15 Freq: Status: Active Protocol: Activity Type Activity Date Activity User E-Sign Co-Sign Detail Recorded Client Recorded Date Recorded By Document 07/04/19 10:55 LIANE [id number] 07/04/19 10:56 LIANE 07/04/19 10:55 Wound Center Nurse 2 [Procedure/Treatment] -Time 10:55 -Correct Patient Yes -Correct Side, Site, Position Yes -Correct Procedure Yes -Procedure Performed Yes -Type of Procedure Debridement -Clinical Debridement Muscle -Post Debridement Size (cm) - Length 7 -Post Debridement Size (cm) - Width 3.5 -Post Debridement Size (cm) - Depth 1.0 -Total Square Cm 24.5 -Wound/Ulcer Outcome Not Healed -Ulcer Cleansing Rinsed/ Irrigated with Saline -Foul Odor after Cleansing No -Bioengineered Tissue No -Bleeding Controlled with Pressure -Other tunnel 10-12=== 2.8cm -Offloading No -Treatment Response Procedure Tolerated Well [See Physician Procedure note for Specifics] Pain Scale: 0-10 Numeric [Pain] -Is Patient Pain Free? Yes Debridement Note Post-Debridement Measurements/Treatment - Nurse 2 - General Ulcer CM Notes Start: 06/20/19 10:15 Freq: Status: Active Protocol: Activity Type Activity Date Activity User E-Sign Co-Sign Detail Recorded Client Recorded Date Recorded By Document 06/20/19 10:36 LIANE [id number] 06/20/19 10:42 Document 07/04/19 10:55 LIANE [id number] 07/04/19 10:56 06/20/19 07/04/19 10:36 10:55 Wound Center Nurse 2 #2 right ischium post op -Time 10:37 10:55 -Correct Patient Yes Yes -Correct Side, Site, Position Yes Yes -Correct Procedure Yes Yes -Procedure Performed Yes Yes -Type of Procedure Debridement Debridement -Clinical Debridement Muscle Muscle -Post Debridement Size (cm) - Length 7.2 7 -Post Debridement Size (cm) - Width 4.2 3.5 -Post Debridement Size (cm) - Depth 1.0 1.0 -Total Square Cm 30.24 24.5 -Wound/Ulcer Outcome Not Healed Not Healed -Ulcer Cleansing Rinsed/ Rinsed/ Irrigated with Irrigated with Saline Saline -Foul Odor after Cleansing No No -Bioengineered Tissue No No -Bleeding Controlled with Pressure Pressure -Other tunnel: 11;00-2 tunnel 10-12=== .5cm// 2-3:00-- 2.8cm 1.2cm -Offloading No No -Treatment Response Procedure Procedure Tolerated Well Tolerated Well Pain Scale: 0-10 Numeric Is Patient Pain Free? Yes Yes Wound debrided: #2 Right ischial area. Laterality: Right Wound Grade/Stage: IV. Type of Debridement: Excisional debridement Anesthesia Used: 4% Lidocaine Solution Depth: Down to and including healthy tissue, in the subcutaneous layer, to muscle, to bone - little bone is exposed but not debrided. Percentage of wound debrided: 100 Instrument Used: 5mm curette Tissue Removed: subcutaneous tissue and muscle. Severity: Fat Layer Exposed - muscle is exposed. little bone is exposed but not debrided. Amount of bleeding with debridement: Mild Bleeding Controlled with: Pressure Patient tolerated procedure well Assessment/Plan Active Problems Osteomyelitis of right side of pelvis (Chronic) Right ischial pressure sore, stage 4 (Chronic) Paraplegia (Chronic) Paraplegic immobility syndrome (Chronic) Assessment: 1. Right ischial pressure sore, stage IV. 2. Paraplegia. 3. Chronic refractory osteomyelitis. 4. MRSA. 5. s/p excision right ischial pressure sore, Stage IV, with partial ostectomy for osteomyelitis. Plan: Continue wound VAC with adaptic over the bone. His soft tissue operative culture showed MRSA, Enterococcus faecalis, Morganella morganii, and Anaerobic cocci. His bone operative culture showed MRSA, Streptococcus anginosus, Morganella morganii, and Anaerobic cocci. He was placed on Vancomycin and Levaquin and Flagyl and has finished them. A wound culture was done on 06/20/19. It showed MRSA, Klebsiella oxytoca, Corynebacterium striatum, and Streptococcus mitis/oralis. He was placed on Clindamycin and Bactrim. His Pathology was positive for osteomyelitis. With the recent diagnosis of osteomyelitis, he would be a candidate for HBO. He will think about it and let me know. He wants to proceed in the Spring. A CT Pelvis was done on 11/07/17. It was suspicious for osteomyelitis. A repeat CT Pelvis was done on 05/17/18. Once again osteomyelitis is suspected and cannot be ruled out. Prealbumin from 03/14/19 was 19.3. Encourage nutritional supplementation with protein to help the healing process. He is still deciding about a muscle flap at some point in the future. Once again it was discussed with him and his family that the pressure sore in this area rarely heals without a muscle flap especially a Stage IV pressure sore involving the bone. Followup 3 weeks. 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
== END 2019-07-12 23:59 ==
LOC: WC 10:30
PROVIDERS: Family Provider Preventive Medicine Occupational Medicine; PCP Preventive Medicine Occupational Medicine; Referring Provider Nurse Practitioner Family; Visit Provider Nurse Practitioner Family
DX: L89.214 Pressure ulcer of right hip, stage 4 (principal); G82.20 Paraplegia, unspecified; M86.68 Other chronic osteomyelitis, other site; M62.3 Immobility syndrome (paraplegic); Z86.14 Personal history of Methicillin resistant Staphylococcus aureus infection
CPT/HCPCS: 11043; 11046; 87070; 87075; 87077; 87186; 87205; 97605

== ENCOUNTER 2019-08-01 08:32 | Outpatient (RCR) | payer BC, MEDICARE, SELFPAY ==
[2019-07-13 00:32] VITALS: BP 132/106; PULSE 78; RESP 16; TEMP 36.8
[2019-08-01 11:05] VITALS: BP 113/72; PULSE 75; RESP 20; TEMP 36.6; BMI 21.4
--- NOTE | 2019-08-01 21:24 | PCM.WC.PN ---
Type of Wound Date of Service: 08/01/19 Chief Complaint: Right ischial pressure sore, Stage IV. History of Wound: Surgery 03/02/19 - Excision right ischial pressure sore, Stage IV, with partial ostectomy for osteomyelitis. Wound care -wound VAC. Operative cultures - MRSA, Enterococcus faecalis, Morganella morganii, and Anaerobic cocci in the soft tissue and MRSA, Streptococcus anginosus, Morganella morganii, and Anaerobic cocci in the bone. He was started on IV Vancomycin, and Levaquin, and Flagyl. He has finished them. Another wound culture was done on 06/20/19. It showed MRSA, Klebsiella oxytoca, Corynebacterium striatum, and Streptococcus mitis/oralis. He was placed on Clindamycin and Bactrim and has finished them. Pathology - positive for osteomyelitis. Prealbumin from 03/14/19 was 19.3. Encourage nutritional supplementation with protein to help the healing process. Today he denies fever. His appetite is good. Progress of Wound: Improved. - Physical Exam Vital Signs Temp Pulse Resp BP 97.8 F 75 20 H 113/72 08/01/19 11:05 08/01/19 11:05 08/01/19 11:05 08/01/19 11:05 Wound Measurements and Assessment WC - Nurse 1 - General Ulcer Measurement Start: 08/01/19 11:05 Freq: Status: Active Protocol: Activity Type Activity Date Activity User E-Sign Co-Sign Detail Recorded Client Recorded Date Recorded By Document 08/01/19 11:05 DL [id number] 08/01/19 11:09 DL 08/01/19 11:05 Wound Center Nurse 1 [Ulcer Assessment] #2 right ischium post op -Current Size (cm) - Length 7.9 -Current Size (cm) - Width 4.3 -Current Size (cm) - Depth 1.3 -Total Square Cm 33.97 -Photo Taken No -Undermining/Tunneling Starts (O' 10 clock) -Undermining/Tunneling Ends (O'clock) 1 -Maximum Distance (cm) 1.8 -Exudate Amt Medium -Exudate Type Serosanguineous -Wound Margin Thickened & Rolled Under -Granulation Amt Large (67-100%) -Granulation Quality Red -Necrosis Amt Small (1-33%) -Necrotic Tissue Type Adherent Slough -Structure Exposed N/A -Texture (Elizabeth-wound Skin Appearance) Scarring -Moisture (Elizabeth-wound Skin Appearance No Abnormality ) -Color (Elizabeth-wound Skin Appearance) No Abnormality -Temperature (Elizabeth-wound Skin No Abnormality Appearance) (Pt Warm) -Tenderness on Palpation (Elizabeth-wound No Skin Appearance) -Ulcer Cleansing Wound Cleanser -Foul Odor after Cleansing No -Anesthetic Used 4% Lidocaine Solution - Nurse 2 - General Ulcer CM Notes Start: 08/01/19 11:05 Freq: Status: Active Protocol: Activity Type Activity Date Activity User E-Sign Co-Sign Detail Recorded Client Recorded Date Recorded By Document 08/01/19 11:27 JF [id number] 08/01/19 11:33 08/01/19 11:27 Wound Center Nurse 2 [Procedure/Treatment] -Time 11:30 -Correct Patient Yes -Correct Side, Site, Position Yes -Correct Procedure Yes -Procedure Performed Yes -Type of Procedure Debridement -Clinical Debridement Muscle -Post Debridement Size (cm) - Length 5.0 -Post Debridement Size (cm) - Width 5.5 -Post Debridement Size (cm) - Depth 1.5 -Total Square Cm 27.50 -Wound/Ulcer Outcome Not Healed -Ulcer Cleansing Rinsed/ Irrigated with Saline -Foul Odor after Cleansing No -Bioengineered Tissue No -Bleeding Controlled with Pressure -Other tunnel-- 11:00- 2.0/ 2:00-1. 4cm -Offloading No -Treatment Response Procedure Tolerated Well [See Physician Procedure note for Specifics] Pain Scale: 0-10 Numeric [Pain] -Is Patient Pain Free? Yes Debridement Note Post-Debridement Measurements/Treatment - Nurse 2 - General Ulcer CM Notes Start: 08/01/19 11:05 Freq: Status: Active Protocol: Activity Type Activity Date Activity User E-Sign Co-Sign Detail Recorded Client Recorded Date Recorded By Document 08/01/19 11:27 JF [id number] 08/01/19 11:33 08/01/19 11:27 Wound Center Nurse 2 #2 right ischium post op -Time 11:30 -Correct Patient Yes -Correct Side, Site, Position Yes -Correct Procedure Yes -Procedure Performed Yes -Type of Procedure Debridement -Clinical Debridement Muscle -Post Debridement Size (cm) - Length 5.0 -Post Debridement Size (cm) - Width 5.5 -Post Debridement Size (cm) - Depth 1.5 -Total Square Cm 27.50 -Wound/Ulcer Outcome Not Healed -Ulcer Cleansing Rinsed/ Irrigated with Saline -Foul Odor after Cleansing No -Bioengineered Tissue No -Bleeding Controlled with Pressure -Other tunnel-- 11:00- 2.0/ 2:00-1. 4cm -Offloading No -Treatment Response Procedure Tolerated Well Pain Scale: 0-10 Numeric Is Patient Pain Free? Yes Wound debrided: #2 Right ischial area. Laterality: Right Wound Grade/Stage: IV. Type of Debridement: Excisional debridement Anesthesia Used: 4% Lidocaine Solution Depth: Down to and including healthy tissue, in the subcutaneous layer, to muscle, to bone - small amount of bone exposed. Percentage of wound debrided: 100 Instrument Used: 7mm curette Tissue Removed: subcutaneous tissue and muscle. Severity: Fat Layer Exposed - muscle is exposed. bone is exposed but not debrided. Amount of bleeding with debridement: Mild Bleeding Controlled with: Pressure Patient tolerated procedure well Assessment/Plan Assessment: 1. Right ischial pressure sore, stage IV. 2. Paraplegia. 3. Chronic refractory osteomyelitis. 4. MRSA. 5. s/p excision right ischial pressure sore, Stage IV, with partial ostectomy for osteomyelitis. Plan: Continue wound VAC with adaptic over the bone. His soft tissue operative culture showed MRSA, Enterococcus faecalis, Morganella morganii, and Anaerobic cocci. His bone operative culture showed MRSA, Streptococcus anginosus, Morganella morganii, and Anaerobic cocci. He was placed on Vancomycin and Levaquin and Flagyl and has finished them. A wound culture was done on 06/20/19. It showed MRSA, Klebsiella oxytoca, Corynebacterium striatum, and Streptococcus mitis/oralis. He was placed on Clindamycin and Bactrim and has finished them. His Pathology was positive for osteomyelitis. With the recent diagnosis of osteomyelitis, he would be a candidate for HBO. He will think about it and let me know. A CT Pelvis was done on 11/07/17. It was suspicious for osteomyelitis. A repeat CT Pelvis was done on 05/17/18. Once again osteomyelitis is suspected and cannot be ruled out. Prealbumin from 03/14/19 was 19.3. Encourage nutritional supplementation with protein to help the healing process. He is still deciding about a muscle flap at some point in the future. Once again it was discussed with him and his family that the pressure sore in this area rarely heals without a muscle flap especially a Stage IV pressure sore involving the bone. Followup 3 weeks. 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
--- NOTE | 2019-08-12 16:09 | WC ---
Received a message from [facility] home health nurse Sarah stating patient c/o chills and increased temp. Stated no redness to wound. Noemy Palmer CNP notified and instructed patient call her at Dr. Ken office and she will address it. Called and spoke to patient and mother in law caring for him. Mother in law stated patient still c/o not feeling well and increased temp today 101.2 and 99.0. Mother in law stated she will call Noemy now. Patient scheduled to see Noemy Palmer CNP Thursday08/15/19 at the wound center.
== END 2019-08-11 23:59 ==
LOC: WC 08:32
PROVIDERS: Family Provider Preventive Medicine Occupational Medicine; PCP Preventive Medicine Occupational Medicine; Referring Provider Nurse Practitioner Family; Visit Provider Nurse Practitioner Family
DX: L89.214 Pressure ulcer of right hip, stage 4 (principal); M86.68 Other chronic osteomyelitis, other site; Z86.14 Personal history of Methicillin resistant Staphylococcus aureus infection; G82.20 Paraplegia, unspecified
CPT/HCPCS: 11043; 11046

== ENCOUNTER 2019-08-29 10:30 | Outpatient (RCR) | payer BC, MEDICARE, SELFPAY ==
[2019-08-12 00:12] VITALS: BP 113/72; PULSE 75; RESP 20; TEMP 36.6
[2019-08-15 11:16] VITALS: BP 99/59; PULSE 100; RESP 18; TEMP 36.2; BMI 21.4
[2019-08-15 12:37] LABS: Mucous, Urine 0 SEEN /hpf (<or=2+); Red Blood Cells-Urine 0 SEEN /hpf (0-5); White Blood Cells 0 SEEN /hpf (0-5)
[2019-08-15 12:43] LABS: Color, Urine Yellow (Yellow); Glucose, Dipstick Normal (Normal); Ketone-Dipstick 50 mg/dl (Negative); Leukocyte Esterase-Dipstick Negative /ul (Negative); Nitrite-Dipstick Negative (Negative); Occult Blood-Urine Negative /ul (Negative); Protein-Dipstick Negative (Negative); Urine Bilirubin Dipstick Negative (Negative); Urine Clarity Clear (Clear); Urine Urobilinogen Normal (Normal)
[2019-08-15 12:52] LABS: Bacteria RARE /hpf (None Seen); Squamous Epithelial Cells - UA 0-5 SEEN /hpf (0-5)
--- NOTE | 2019-08-15 14:46 | PCM.WC.PN ---
(1) Right ischial pressure sore, stage 4 Status: Chronic Current Visit: Yes Code(s): L89.314 - Pressure ulcer of right buttock, stage 4 (2) Fever Status: Acute Current Visit: Yes Code(s): R50.9 - Fever, unspecified (3) Paraplegia Status: Chronic Current Visit: Yes Code(s): G82.20 - Paraplegia, unspecified (4) History of osteomyelitis Status: Chronic Current Visit: Yes Code(s): Z87.39 - Personal history of other diseases of the musculoskeletal system and connective tissue Type of Wound Date of Service: 08/15/19 Chief Complaint: Right ischial pressure sore, Stage IV. History of Wound: Surgery 03/02/19 - Excision right ischial pressure sore, Stage IV, with partial ostectomy for osteomyelitis. Wound care -The VAC was stopped last Thursday after speaking to home health nurse who was concerned about an odor, the appearance of the ulcer and patient was running low grade fevers. Start daily Dakin's moistened gauze. Operative cultures - MRSA, Enterococcus faecalis, Morganella morganii, and Anaerobic cocci in the soft tissue and MRSA, Streptococcus anginosus, Morganella morganii, and Anaerobic cocci in the bone. He was started on IV Vancomycin, and Levaquin, and Flagyl. He has finished them. Another wound culture was done on 06/20/19. It showed MRSA, Klebsiella oxytoca, Corynebacterium striatum, and Streptococcus mitis/oralis. He was placed on Clindamycin and Bactrim and has finished them. Pathology - positive for osteomyelitis. Prealbumin from 03/14/19 was 19.3. Encourage nutritional supplementation with protein to help the healing process. Today he has had a low grade fever and is no feeling well. Progress of Wound: Improved. - Physical Exam Vital Signs Temp Pulse Resp BP 97.1 F L 100 18 99/59 L 08/15/19 11:16 08/15/19 11:16 08/15/19 11:16 08/15/19 11:16 General: Alert, Oriented x3, Cooperative HEENT: Atraumatic Oral: Moist Mucosa Lungs: Normal air movement Cardiovascular: Regular rate Extremities: No edema, Capillary Refill Less than 3 Seconds Skin: Ulcer/ Wound - right ischial ulcer Wound Measurements and Assessment WC - Nurse 1 - General Ulcer Measurement Start: 08/15/19 11:16 Freq: Status: Active Protocol: Activity Type Activity Date Activity User E-Sign Co-Sign Detail Recorded Client Recorded Date Recorded By Document 08/15/19 11:16 LESLIE [id number] 08/15/19 11:20 LESLIE 08/15/19 11:16 Wound Center Nurse 1 [Ulcer Assessment] #2 right ischium post op -Combined with other wound No -Current Size (cm) - Length 7 -Current Size (cm) - Width 4.2 -Current Size (cm) - Depth 1.2 -Total Square Cm 29.4 -Date of Last Picture (Recall this 08/12/19 field) -Photo Taken Yes -Epithelialization None Present -Tunneling No -Undermining/Tunneling Yes -Undermining/Tunneling Starts (O' 9 clock) -Undermining/Tunneling Ends (O'clock) 11 -Maximum Distance (cm) 2.0 -Exudate Amt Large -Exudate Type Serosanguineous -Granulation Amt Large (67-100%) -Granulation Quality [place],Red -Slough/Fibrin Yes -Necrosis Amt Small (1-33%) -Necrotic Tissue Type Adherent Slough -Ulcer Cleansing Soap and Water -Anesthetic Used 4% Lidocaine Solution - Nurse 2 - General Ulcer CM Notes Start: 08/15/19 11:16 Freq: Status: Active Protocol: Activity Type Activity Date Activity User E-Sign Co-Sign Detail Recorded Client Recorded Date Recorded By Document 08/15/19 11:42 LIANE [id number] 08/15/19 11:48 LIANE 08/15/19 11:42 Wound Center Nurse 2 [Procedure/Treatment] -Time 11:43 -Correct Patient Yes -Correct Side, Site, Position Yes -Correct Procedure Yes -Procedure Performed Yes -Type of Procedure Debridement -Clinical Debridement Muscle -Post Debridement Size (cm) - Length 7.0 -Post Debridement Size (cm) - Width 4.7 -Post Debridement Size (cm) - Depth 1.5 -Total Square Cm 32.90 -Wound/Ulcer Outcome Not Healed -Ulcer Cleansing Rinsed/ Irrigated with Saline -Foul Odor after Cleansing No -Bioengineered Tissue No -Bleeding Controlled with Pressure -Other tunnel 10-as:00 ---2.0cm -Offloading No -Treatment Response Procedure Tolerated Well [See Physician Procedure note for Specifics] Pain Scale: 0-10 Numeric [Pain] -Is Patient Pain Free? Yes Musculoskeletal: No Tenderness to Palpation of Joints or Extremities Neurological: Neuro grossly intact Psych/Mental Status: Normal Affect, Appropriate Debridement Note Post-Debridement Measurements/Treatment WC - Nurse 2 - General Ulcer CM Notes Start: 08/15/19 11:16 Freq: Status: Active Protocol: Activity Type Activity Date Activity User E-Sign Co-Sign Detail Recorded Client Recorded Date Recorded By Document 08/15/19 11:42 [id number] 08/15/19 11:48 LIANE 08/15/19 11:42 Wound Center Nurse 2 #2 right ischium post op -Time 11:43 -Correct Patient Yes -Correct Side, Site, Position Yes -Correct Procedure Yes -Procedure Performed Yes -Type of Procedure Debridement -Clinical Debridement Muscle -Post Debridement Size (cm) - Length 7.0 -Post Debridement Size (cm) - Width 4.7 -Post Debridement Size (cm) - Depth 1.5 -Total Square Cm 32.90 -Wound/Ulcer Outcome Not Healed -Ulcer Cleansing Rinsed/ Irrigated with Saline -Foul Odor after Cleansing No -Bioengineered Tissue No -Bleeding Controlled with Pressure -Other tunnel 10-as:00 ---2.0cm -Offloading No -Treatment Response Procedure Tolerated Well Pain Scale: 0-10 Numeric Is Patient Pain Free? Yes Wound debrided: ischial ulcer Laterality: Right Type of Debridement: Excisional debridement Anesthesia Used: 4% Lidocaine Solution Depth: Down to and including healthy tissue, in the subcutaneous layer, to muscle Percentage of wound debrided: 100 Instrument Used: 7mm curette Tissue Removed: Subcutaneous tissue and slough into the muscle with bone exposure Severity: Fat Layer Exposed Amount of bleeding with debridement: Mild Bleeding Controlled with: Pressure Patient tolerated procedure well Assessment/Plan Active Problems Fever (Acute) Right ischial pressure sore, stage 4 (Chronic) Paraplegia (Chronic) History of osteomyelitis (Chronic) Complicated wound infection (Chronic) Assessment: 1. Right ischial pressure sore, stage IV. 2. Paraplegia. 3. Chronic refractory osteomyelitis. 4. MRSA. 5. s/p excision right ischial pressure sore, Stage IV, with partial ostectomy for osteomyelitis. Plan: Wound VAC stopped last Thursday due to odor and elevated Temperature. Doing daily Dakin's moistened gauze dressing change. Sent urine for UA and culture. Cultured wound. Depending on the results of the cultures, it may necessitate treatment with antibiotics. His soft tissue operative culture showed MRSA, Enterococcus faecalis, Morganella morganii, and Anaerobic cocci. His bone operative culture showed MRSA, Streptococcus anginosus, Morganella morganii, and Anaerobic cocci. He was placed on Vancomycin and Levaquin and Flagyl and has finished them. A wound culture was done on 06/20/19. It showed MRSA, Klebsiella oxytoca, Corynebacterium striatum, and Streptococcus mitis/oralis. He was placed on Clindamycin and Bactrim and has finished them. His Pathology was positive for osteomyelitis. With the recent diagnosis of osteomyelitis, he would be a candidate for HBO. He will think about it and let me know. A CT Pelvis was done on 11/07/17. It was suspicious for osteomyelitis. A repeat CT Pelvis was done on 05/17/18. Once again osteomyelitis is suspected and cannot be ruled out. Prealbumin from 03/14/19 was 19.3. Encourage nutritional supplementation with protein to help the healing process. He is still deciding about a muscle flap at some point in the future. Once again it was discussed with him and his family that the pressure sore in this area rarely heals without a muscle flap especially a Stage IV pressure sore involving the bone. Instructed patient if his symptoms worsen or do not improve he should follow up with PCP or go to the ED. Followup 2 weeks. [id number]: [id number] Mirella musc/fascia 20 sq cm/<
[2019-08-29 10:37] VITALS: BP 72/53; PULSE 96; RESP 16; TEMP 36.6; BMI 21.4
--- NOTE | 2019-08-29 17:50 | PN.PCM_ITS ---
Type of Wound Date of Service: 08/29/19 Chief Complaint: Right ischial pressure sore, Stage IV. History of Wound: Surgery 03/02/19 - Excision right ischial pressure sore, Stage IV, with partial ostectomy for osteomyelitis. Wound care - Dakin's. Operative cultures - MRSA, Enterococcus faecalis, Morganella morganii, and Anaerobic cocci in the soft tissue and MRSA, Streptococcus anginosus, Morganella morganii, and Anaerobic cocci in the bone. He was started on IV Vancomycin, and Levaquin, and Flagyl. He has finished them. Another wound culture was done on 06/20/19. It showed MRSA, Klebsiella oxytoca, Corynebacterium striatum, and Streptococcus mitis/oralis. He was placed on Clindamycin and Bactrim and has finished them. He wasn't feeling well and a wound culture was done on 08/15/19. It showed MRSA, Streptococcus mitis/oralis, Corynebacterium striatum, Corynebacterium minutissimum, and Anaerobic cocci. Urine culture on 08/15/19 showed Enterococcus faecalis and Staphylococcus epidermidis. He was placed on Doxycycline, Cleocin, Flagyl, and Macrodantin. Pathology - positive for osteomyelitis. Prealbumin from 03/14/19 was 19.3. Encourage nutritional supplementation with protein to help the healing process. Today he denies fever. His appetite is ok. He does get upset stomach with antibiotics. Progress of Wound: Improved. - Physical Exam Vital Signs Temp Pulse Resp BP 97.8 F 96 16 72/53 L 08/29/19 10:37 08/29/19 10:37 08/29/19 10:37 08/29/19 10:37 Wound Measurements and Assessment WC - Nurse 1 - General Ulcer Measurement Start: 08/15/19 11:16 Freq: Status: Active Protocol: Activity Type Activity Date Activity User E-Sign Co-Sign Detail Recorded Client Recorded Date Recorded By Document 08/29/19 10:37 [facility] [id number] 08/29/19 10:46 BMF 08/29/19 10:37 Wound Center Nurse 1 [Ulcer Assessment] #2 right ischium post op -Combined with other wound No -Current Size (cm) - Length 6.6 -Current Size (cm) - Width 4.2 -Current Size (cm) - Depth 1.3 -Total Square Cm 27.72 -Photo Taken No -Epithelialization None Present -Tunneling No -Undermining/Tunneling Yes -Undermining/Tunneling Starts (O' 12 clock) -Undermining/Tunneling Ends (O'clock) 1 -Maximum Distance (cm) 2.2 -Exudate Amt Medium -Exudate Type Serosanguineous -Wound Margin Distinct, Outline Attached -Granulation Amt Large (67-100%) -Granulation Quality Red -Slough/Fibrin Yes -Necrosis Amt Small (1-33%) -Necrotic Tissue Type Adherent Slough -Structure Exposed Bone -Texture (Elizabeth-wound Skin Appearance) Scarring -Moisture (Elizabeth-wound Skin Appearance Assessed ) -Color (Elizabeth-wound Skin Appearance) Assessed -Temperature (Elizabeth-wound Skin No Abnormality Appearance) (Pt Warm) -Tenderness on Palpation (Elizabeth-wound No Skin Appearance) -Ulcer Cleansing soapy water -Foul Odor after Cleansing No -Anesthetic Used 4% Lidocaine Solution WC - Nurse 2 - General Ulcer CM Notes Start: 08/15/19 11:16 Freq: Status: Active Protocol: Activity Type Activity Date Activity User E-Sign Co-Sign Detail Recorded Client Recorded Date Recorded By Document 08/29/19 11:01 LIANE [id number] 08/29/19 11:05 LIANE 08/29/19 11:01 Wound Center Nurse 2 [Procedure/Treatment] -Time 11:03 -Correct Patient Yes -Correct Side, Site, Position Yes -Correct Procedure Yes -Procedure Performed Yes -Type of Procedure Debridement -Clinical Debridement Muscle -Post Debridement Size (cm) - Length 6.0 -Post Debridement Size (cm) - Width 3.2 -Post Debridement Size (cm) - Depth 2.2 -Total Square Cm 19.20 -Wound/Ulcer Outcome Not Healed -Ulcer Cleansing Rinsed/ Irrigated with Saline -Foul Odor after Cleansing No -Bioengineered Tissue No -Bleeding Controlled with Pressure -Other tunnel @10:00-- 1.7cm -Offloading No -Treatment Response Procedure Tolerated Well [See Physician Procedure note for Specifics] Pain Scale: 0-10 Numeric [Pain] -Is Patient Pain Free? Yes Debridement Note Post-Debridement Measurements/Treatment WC - Nurse 2 - General Ulcer CM Notes Start: 08/15/19 11:16 Freq: Status: Active Protocol: Activity Type Activity Date Activity User E-Sign Co-Sign Detail Recorded Client Recorded Date Recorded By Document 08/15/19 11:42 [id number] 08/15/19 11:48 Document 08/29/19 11:01 LIANE [id number] 08/29/19 11:05 08/15/19 08/29/19 11:42 11:01 Wound Center Nurse 2 #2 right ischium post op -Time 11:43 11:03 -Correct Patient Yes Yes -Correct Side, Site, Position Yes Yes -Correct Procedure Yes Yes -Procedure Performed Yes Yes -Type of Procedure Debridement Debridement -Clinical Debridement Muscle Muscle -Post Debridement Size (cm) - Length 7.0 6.0 -Post Debridement Size (cm) - Width 4.7 3.2 -Post Debridement Size (cm) - Depth 1.5 2.2 -Total Square Cm 32.90 19.20 -Wound/Ulcer Outcome Not Healed Not Healed -Ulcer Cleansing Rinsed/ Rinsed/ Irrigated with Irrigated with Saline Saline -Foul Odor after Cleansing No No -Bioengineered Tissue No No -Bleeding Controlled with Pressure Pressure -Other tunnel 10-as:00 tunnel @10:00-- ---2.0cm 1.7cm -Offloading No No -Treatment Response Procedure Procedure Tolerated Well Tolerated Well Pain Scale: 0-10 Numeric Is Patient Pain Free? Yes Yes Wound debrided: #2 Right ischial area. Laterality: Right Wound Grade/Stage: IV. Type of Debridement: Excisional debridement Anesthesia Used: 4% Lidocaine Solution Depth: Down to and including healthy tissue, in the subcutaneous layer, to muscle, to bone - some bone is exposed but not debrided. Percentage of wound debrided: 100 Instrument Used: 7mm curette Tissue Removed: subcutaneous tissue and muscle. Severity: Fat Layer Exposed - muscle is exposed. bone is exposed but not debrided. Amount of bleeding with debridement: Mild Bleeding Controlled with: Pressure Patient tolerated procedure well Assessment/Plan Active Problems Fever (Acute) Right ischial pressure sore, stage 4 (Chronic) Paraplegia (Chronic) History of osteomyelitis (Chronic) Complicated wound infection (Chronic) Assessment: 1. Right ischial pressure sore, stage IV. 2. Paraplegia. 3. Chronic refractory osteomyelitis. 4. MRSA. 5. s/p excision right ischial pressure sore, Stage IV, with partial ostectomy for osteomyelitis. Plan: Continue Dakin's moistened gauze dressing changes. The VAC was returned because there was not enough progess seen. Continue Doxycycline, Cleocin, Flagyl, and Macrodantin for wound culture that showed MRSA, Streptococcus mitis/oralis, Corynebacterium striatum, and Corynebacterium minutissimum, and Anaerobic cocci and for the urine culture that showed Enterococcus faecalis and Staphylococcus epidermidis. His soft tissue operative culture showed MRSA, Enterococcus faecalis, Morganella morganii, and Anaerobic cocci. His bone operative culture showed MRSA, Streptococcus anginosus, Morganella morganii, and Anaerobic cocci. He was placed on Vancomycin and Levaquin and Flagyl and has finished them. A wound culture was done on 06/20/19. It showed MRSA, Klebsiella oxytoca, Corynebacterium striatum, and Streptococcus mitis/oralis. He was plac ed on Clindamycin and Bactrim and has finished them. His Pathology was positive for osteomyelitis. With the recent diagnosis of osteomyelitis, he would be a candidate for HBO. He will think about it and let me know. A CT Pelvis was done on 11/07/17. It was suspicious for osteomyelitis. A repeat CT Pelvis was done on 05/17/18. Once again osteomyelitis is suspected and cannot be ruled out. Prealbumin from 03/14/19 was 19.3. Encourage nutritional supplementation with protein to help the healing process. He is still deciding about a muscle flap at some point in the future. Once again it was discussed with him and his family that the pressure sore in this area rarely heals without a muscle flap especially a Stage IV pressure sore involving the bone. Instructed patient if his symptoms worsen or do not improve he should follow up with PCP or go to the ED. Followup 2 weeks. 111xxx-113xx: [id number] Mirella musc/fascia 20 sq cm/< - ICD-10 - L89.314, M86.9, G82.20, A49.02
--- NOTE | 2019-08-31 15:27 | WC ---
Patient called in complaining of feeling sick to stomach and nausea from all the antibiotics that he started from Dr Ken. It was discussed at Mondays visit and now that patient feels that he just cannot continue feeling the way he is feeling. Spoke to Dr Ken who states to stop all treatment with ATB's and will continue with same dressing treatment plan. Called and left message with patient on his voicemail. Any concerns to call the nursing line at [phone].
== END 2019-09-11 23:59 ==
LOC: WC 10:30
PROVIDERS: Family Provider Preventive Medicine Occupational Medicine; PCP Preventive Medicine Occupational Medicine; Referring Provider Nurse Practitioner Family; Visit Provider Nurse Practitioner Family
DX: L89.214 Pressure ulcer of right hip, stage 4 (principal); G82.20 Paraplegia, unspecified; M86.68 Other chronic osteomyelitis, other site; Z86.14 Personal history of Methicillin resistant Staphylococcus aureus infection; R50.9 Fever, unspecified
CPT/HCPCS: 11043; 81001; 87070; 87075; 87077; 87086; 87088; 87186; 87205

== ENCOUNTER 2019-10-03 11:00 | Outpatient (RCR) | payer BC, MEDICARE, SELFPAY ==
[2019-09-12 00:24] VITALS: BP 72/53; PULSE 96; RESP 16; TEMP 36.6
[2019-09-12 10:47] VITALS: BP 90/65; PULSE 94; RESP 18; TEMP 36.6; BMI 21.4
--- NOTE | 2019-09-12 11:33 | PN.PCM_ITS ---
(1) Right ischial pressure sore, stage 4 Status: Chronic Current Visit: Yes Code(s): L89.314 - Pressure ulcer of right buttock, stage 4 (2) Osteomyelitis of right side of pelvis Status: Chronic Current Visit: Yes Code(s): M86.9 - Osteomyelitis, unspecified (3) MRSA (methicillin resistant Staphylococcus aureus) infection Status: Acute Current Visit: Yes Code(s): A49.02 - Methicillin resistant Staphylococcus aureus infection, unspecified site (4) Paraplegia Status: Chronic Current Visit: Yes Code(s): G82.20 - Paraplegia, unspecified Type of Wound Date of Service: 09/12/19 Chief Complaint: Right ischial pressure sore, Stage IV. History of Wound: Surgery 03/02/19 - Excision right ischial pressure sore, Stage IV, with partial ostectomy for osteomyelitis. Wound care - Dakin's. Operative cultures - MRSA, Enterococcus faecalis, Morganella morganii, and Anaerobic cocci in the soft tissue and MRSA, Streptococcus anginosus, Morganella morganii, and Anaerobic cocci in the bone. He was started on IV Vancomycin, and Levaquin, and Flagyl. He has finished them. Another wound culture was done on 06/20/19. It showed MRSA, Klebsiella oxytoca, Corynebacterium striatum, and Streptococcus mitis/oralis. He was placed on Clindamycin and Bactrim and has finished them. He wasn't feeling well and a wound culture was done on 08/15/19. It showed MRSA, Streptococcus mitis/oralis, Corynebacterium striatum, Corynebacterium minutissimum, and Anaerobic cocci. Urine culture on 08/15/19 showed Enterococcus faecalis and Staphylococcus epidermidis. He was placed on Doxycycline, Cleocin, Flagyl, and Macrodantin. Pathology - positive for osteomyelitis. Prealbumin from 03/14/19 was 19.3. Encourage nutritional supp lementation with protein to help the healing process. Today he denies fever. His appetite is ok. He does get upset stomach with antibiotics. Progress of Wound: Improved. - Physical Exam Vital Signs Temp Pulse Resp BP 97.8 F 94 18 90/65 09/12/19 10:47 09/12/19 10:47 09/12/19 10:47 09/12/19 10:47 General: Alert, Oriented x3, Cooperative HEENT: Atraumatic, PERRLA Oral: Moist Mucosa Lungs: Normal air movement Cardiovascular: Regular rate Abdomen: Soft Extremities: No edema, Capillary Refill Less than 3 Seconds Skin: Ulcer/ Wound - Right sacral ulcer. New tunnel area from 1-3 o'clock. Continues to have tunneling at 10:00 Wound Measurements and Assessment WC - Nurse 1 - General Ulcer Measurement Start: 09/12/19 10:47 Freq: Status: Active Protocol: Activity Type Activity Date Activity User E-Sign Co-Sign Detail Recorded Client Recorded Date Recorded By Document 09/12/19 10:47 DL [id number] 09/12/19 10:53 DL 09/12/19 10:47 Wound Center Nurse 1 [Ulcer Assessment] #2 right ischium post op -Current Size (cm) - Length 6.3 -Current Size (cm) - Width 4.3 -Current Size (cm) - Depth 0.7 -Total Square Cm 27.09 -Photo Taken No -Undermining/Tunneling Starts (O' 7 clock) -Undermining/Tunneling Ends (O'clock) 12 -Maximum Distance (cm) 1.5 -Exudate Amt Small -Exudate Type Serosanguineous -Wound Margin Thickened & Rolled Under -Granulation Amt Large (67-100%) -Granulation Quality Red -Necrosis Amt Small (1-33%) -Necrotic Tissue Type Adherent Slough -Structure Exposed Bone -Texture (Elizabeth-wound Skin Appearance) Scarring -Moisture (Elizabeth-wound Skin Appearance No Abnormality ) -Color (Elizabeth-wound Skin Appearance) No Abnormality -Temperature (Elizabeth-wound Skin No Abnormality Appearance) (Pt Warm) -Tenderness on Palpation (Elizabeth-wound No Skin Appearance) -Anesthetic Used 4% Lidocaine Solution Musculoskeletal: No Tenderness to Palpation of Joints or Extremities Neurological: Neuro grossly intact Psych/Mental Status: Normal Affect, Appropriate Debridement Note Wound debrided: Sacral ulcer Laterality: Right Type of Debridement: Excisional debridement Anesthesia Used: 4% Lidocaine Solution Depth: Down to and including healthy tissue, in the subcutaneous layer, to muscle Percentage of wound debrided: 100 Instrument Used: 7mm curette Tissue Removed: Subcutaneous tissue and slough into the muscle Severity: Fat Layer Exposed Amount of bleeding with debridement: Mild Bleeding Controlled with: Pressure Patient tolerated procedure well Assessment/Plan Active Problems MRSA (methicillin resistant Staphylococcus aureus) infection (Acute) Osteomyelitis of right side of pelvis (Chronic) Right ischial pressure sore, stage 4 (Chronic) Paraplegia (Chronic) Assessment: 1. Right ischial pressure sore, stage IV. 2. Paraplegia. 3. Chronic refractory osteomyelitis. 4. MRSA. 5. s/p excision right ischial pressure sore, Stage IV, with partial ostectomy for osteomyelitis. Plan: Continue Dakin's moistened gauze dressing changes. He has a new tunneled area between 1-3 o'clock that had three hard, bone like pieces that were removed and not attatched to anything. Unable to palpate bone through the tunnel. Bone is still exposed in ulcer. The VAC was returned because there was not enough progess seen. Completed Doxycycline, Cleocin, Flagyl, and Macrodantin for wound culture that showed MRSA, Streptococcus mitis/oralis, Corynebacterium striatum, and Corynebacterium minutissimum, and Anaerobic cocci and for the urine culture that showed Enterococcus faecalis and Staphylococcus epidermidis. His soft tissue operative culture showed MRSA, Enterococcus faecalis, Morganella morganii, and Anaerobic cocci. His bone operative culture showed MRSA, Streptococcus anginosus, Morganella morganii, and Anaerobic cocci. He was placed on Vancomycin and Levaquin and Flagyl and has finished them. A wound culture was done on 06/20/19. It showed MRSA, Klebsiella oxytoca, Corynebacterium striatum, and Streptococcus mitis/oralis. He was placed on Clindamycin and Bactrim and has finished them. His Pathology was positive for osteomyelitis. With the recent diagnosis of osteomyelitis, he would be a candidate for HBO. He will think about it and let me know. A CT Pelvis was done on 11/07/17. It was suspicious for osteomyelitis. A repeat CT Pelvis was done on 05/17/18. Once again osteomyelitis is suspected and cannot be ruled out. Prealbumin from 03/14/19 was 19.3. Encourage nutritional supplementation with protein to help the healing process. He is still deciding about a muscle flap at some point in the future. Once again it was discussed with him and his family that the pressure sore in this area rarely heals without a muscle flap especially a Stage IV pressure sore involving the bone. Instructed patient if his symptoms worsen or do not improve he should follow up with PCP or go to the ED. Followup 3 weeks. 111xxx-113xx: [id number] Mirella musc/fascia 20 sq cm/< Add On Codes: 29167 Mirella musc/fascia add-on
[2019-10-03 11:24] VITALS: RESP 16; TEMP 36.3; BMI 21.4
--- NOTE | 2019-10-03 13:30 | PCM.WC.PN ---
(1) Right ischial pressure sore, stage 4 Status: Chronic Code(s): L89.314 - Pressure ulcer of right buttock, stage 4 (2) Osteomyelitis of right side of pelvis Status: Chronic Code(s): M86.9 - Osteomyelitis, unspecified (3) MRSA (methicillin resistant Staphylococcus aureus) infection Status: Acute Code(s): A49.02 - Methicillin resistant Staphylococcus aureus infection, unspecified site (4) Paraplegia Status: Chronic Code(s): G82.20 - Paraplegia, unspecified Type of Wound Date of Service: 10/03/19 Chief Complaint: Right ischial pressure sore, Stage IV. History of Wound: Surgery 03/02/19 - Excision right ischial pressure sore, Stage IV, with partial ostectomy for osteomyelitis. Wound care - Dakin's. Operative cultures - MRSA, Enterococcus faecalis, Morganella morganii, and Anaerobic cocci in the soft tissue and MRSA, Streptococcus anginosus, Morganella morganii, and Anaerobic cocci in the bone. He was started on IV Vancomycin, and Levaquin, and Flagyl. He has finished them. Another wound culture was done on 06/20/19. It showed MRSA, Klebsiella oxytoca, Corynebacterium striatum, and Streptococcus mitis/oralis. He was placed on Clindamycin and Bactrim and has finished them. He wasn't feeling well and a wound culture was done on 08/15/19. It showed MRSA, Streptococcus mitis/oralis, Corynebacterium striatum, Corynebacterium minutissimum, and Anaerobic cocci. Urine culture on 08/15/19 showed Enterococcus faecalis and Staphylococcus epidermidis. He was placed on Doxycycline, Cleocin, Flagyl, and Macrodantin. Pathology - positive for osteomyelitis. Prealbumin from 03/14/19 was 19.3. Encourage nutritional supplementation with protein to help the healing process. Today he denies fever. His appetite is ok. Progress of Wound: Stable. - Physical Exam Vital Signs Temp Pulse Resp BP 97.4 F L 94 16 90/65 10/03/19 11:24 09/12/19 10:47 10/03/19 11:24 09/12/19 10:47 General: Alert, Oriented x3, Cooperative HEENT: Atraumatic Oral: Moist Mucosa Lungs: Normal air movement Cardiovascular: Regular rate Abdomen: Soft Extremities: Capillary Refill Less than 3 Seconds Skin: Ulcer/ Wound - Right ischial ulcer is beefy pink. Wound Measurements and Assessment WC - Nurse 1 - General Ulcer Measurement Start: 09/12/19 10:47 Freq: Status: Active Protocol: Activity Type Activity Date Activity User E-Sign Co-Sign Detail Recorded Client Recorded Date Recorded By Document 10/03/19 11:24 LEANDER [id number] 10/03/19 11:39 LEANDER 10/03/19 11:24 Wound Center Nurse 1 [Ulcer Assessment] #2 right ischium post op -Combined with other wound No -Current Size (cm) - Length 5.5 -Current Size (cm) - Width 3.4 -Current Size (cm) - Depth 1.9 -Total Square Cm 18.70 -Photo Taken No -Tunneling Yes -Tunneling Position (O'clock) 5 -Tunneling Distance (cm) 2.0 -Undermining/Tunneling Yes -Undermining/Tunneling Starts (O' 10 clock) -Undermining/Tunneling Ends (O'clock) 12 -Maximum Distance (cm) 3.4 -Circular Undermining No -Structure Exposed Bone -Moisture (Elizabeth-wound Skin Appearance Assessed, ) Weeping -Temperature (Elizabeth-wound Skin No Abnormality Appearance) (Pt Warm) -Tenderness on Palpation (Elizabeth-wound Yes Skin Appearance) -Ulcer Cleansing Soap and water -Foul Odor after Cleansing No -Anesthetic Used 4% Lidocaine Solution SHAKA - Nurse 2 - General Ulcer CM Notes Start: 09/12/19 10:47 Freq: Status: Active Protocol: Activity Type Activity Date Activity User E-Sign Co-Sign Detail Recorded Client Recorded Date Recorded By Document 10/03/19 11:53 [id number] 10/03/19 11:55 10/03/19 11:53 Wound Center Nurse 2 [Procedure/Treatment] -Time 11:54 -Correct Patient Yes -Correct Side, Site, Position Yes -Correct Procedure Yes -Procedure Performed Yes -Type of Procedure Debridement -Clinical Debridement Muscle -Post Debridement Size (cm) - Length 6.5 -Post Debridement Size (cm) - Width 4.5 -Post Debridement Size (cm) - Depth 1.8 -Total Square Cm 29.25 -Wound/Ulcer Outcome Not Healed -Ulcer Cleansing Rinsed/ Irrigated with Saline -Foul Odor after Cleansing No -Bioengineered Tissue No -Bleeding Controlled with Pressure -Other tunel 11-12:00= 2.5cm -Offloading No -Treatment Response Procedure Tolerated Well [See Physician Procedure note for Specifics] Pain Scale: 0-10 Numeric [Pain] -Is Patient Pain Free? Yes Musculoskeletal: No Tenderness to Palpation of Joints or Extremities Neurological: Neuro grossly intact Debridement Note Post-Debridement Measurements/Treatment WC - Nurse 2 - General Ulcer CM Notes Start: 09/12/19 10:47 Freq: Status: Active Protocol: Activity Type Activity Date Activity User E-Sign Co-Sign Detail Recorded Client Recorded Date Recorded By Document 09/12/19 11:34 PL [id number] 09/12/19 11:36 PL Document 10/03/19 11:53 JF [id number] 10/03/19 11:55 JF 09/12/19 10/03/19 11:34 11:53 Wound Center Nurse 2 #2 right ischium post op -Time 11:09 11:54 -Correct Patient Yes Yes -Correct Side, Site, Position Yes Yes -Correct Procedure Yes Yes -Procedure Performed Yes Yes -Type of Procedure Debridement Debridement -Clinical Debridement Muscle Muscle -Post Debridement Size (cm) - Length 6.5 6.5 -Post Debridement Size (cm) - Width 4.5 4.5 -Post Debridement Size (cm) - Depth 1.2 1.8 -Total Square Cm 29.25 29.25 -Wound/Ulcer Outcome Not Healed Not Healed -Ulcer Cleansing Rinsed/ Rinsed/ Irrigated with Irrigated with Saline Saline -Foul Odor after Cleansing No No -Bioengineered Tissue No -Bleeding Controlled with Pressure Pressure -Other tunel 11-12:00= 2.5cm -Offloading No -Treatment Response Procedure Procedure Tolerated Well Tolerated Well Pain Scale: 0-10 Numeric Is Patient Pain Free? Yes Yes Wound debrided: ischial ulcer Laterality: Right Type of Debridement: Excisional debridement Anesthesia Used: 5% Lidocaine Gel Depth: Down to and including healthy tissue, in the subcutaneous layer, to muscle Percentage of wound debrided: 100 Instrument Used: 7mm curette Tissue Removed: Subcutaneous tissue and slough into the muscle. Severity: Fat Layer Exposed Amount of bleeding with debridement: Mild Bleeding Controlled with: Pressure Patient tolerated procedure well Assessment/Plan Assessment: 1. Right ischial pressure sore, stage IV. 2. Paraplegia. 3. Chronic refractory osteomyelitis. 4. MRSA. 5. s/p excision right ischial pressure sore, Stage IV, with partial ostectomy for osteomyelitis. Plan: Continue Dakin's moistened gauze dressing changes. His dnnroj-op-pcq has been usinge a wound cleansing spray called Ld with dressing changes. He has a tunneled area between 1-3 o'clock. The VAC was returned because there was not enough progess seen. Completed Doxycycline, Cleocin, Flagyl, and Macrodantin for wound culture that showed MRSA, Streptococcus mitis/oralis, Corynebacterium striatum, and Corynebacterium minutissimum, and Anaerobic cocci and for the urine culture that showed Enterococcus faecalis and Staphylococcus epidermidis. His soft tissue operative culture showed MRSA, Enterococcus faecalis, Morganella morganii, and Anaerobic cocci. His bone operative culture showed MRSA, Streptococcus anginosus, Morganella morganii, and Anaerobic cocci. He was placed on Vancomycin and Levaquin and Flagyl and has finished them. A wound culture was done on 06/20/19. It showed MRSA, Klebsiella oxytoca, Corynebacterium striatum, and Streptococcus mitis/oralis. He was placed on Clindamycin and Bactrim and has finished them. His Pathology was positive for osteomyelitis. With the recent diagnosis of osteomyelitis, he would be a candidate for HBO. He will think about it and let me know. A CT Pelvis was done on 11/07/17. It was suspicious for osteomyelitis. A repeat CT Pelvis was done on 05/17/18. Once again osteomyelitis is suspected and cannot be ruled out. Prealbumin from 03/14/19 was 19.3. Encourage nutritional supplementation with protein to help the healing process. He is still deciding about a muscle flap at some point in the future. Once again it was discussed with him and his family that the pressure sore in this area rarely heals without a muscle flap especially a Stage IV pressure sore involving the bone. Instructed patient if his symptoms worsen or do not improve he should follow up with PCP or go to the ED. Followup 4 weeks. 111xxx-113xx: [id number] Mirella musc/fascia 20 sq cm/< Add On Codes: 51944 Mirella musc/fascia add-on
== END 2019-10-11 23:59 ==
LOC: WC 11:00
PROVIDERS: Family Provider Preventive Medicine Occupational Medicine; PCP Preventive Medicine Occupational Medicine; Referring Provider Nurse Practitioner Family; Visit Provider Nurse Practitioner Family
DX: L89.214 Pressure ulcer of right hip, stage 4 (principal); M86.68 Other chronic osteomyelitis, other site; G82.20 Paraplegia, unspecified; Z86.14 Personal history of Methicillin resistant Staphylococcus aureus infection
CPT/HCPCS: 11043; 11046

== ENCOUNTER 2019-10-31 09:59 | Outpatient (RCR) | payer BC, MEDICARE, SELFPAY ==
[2019-10-12 00:24] VITALS: BP 90/65; PULSE 94; RESP 16; TEMP 36.3
[2019-10-31 10:06] VITALS: RESP 16; TEMP 36.3; BMI 21.4
--- NOTE | 2019-10-31 16:27 | PCM.WC.PN ---
Type of Wound Date of Service: 10/31/19 Chief Complaint: Right ischial pressure sore, Stage IV. History of Wound: Surgery 03/02/19 - Excision right ischial pressure sore, Stage IV, with partial ostectomy for osteomyelitis. Wound care - Dakin's. Operative cultures - MRSA, Enterococcus faecalis, Morganella morganii, and Anaerobic cocci in the soft tissue and MRSA, Streptococcus anginosus, Morganella morganii, and Anaerobic cocci in the bone. He was started on IV Vancomycin, and Levaquin, and Flagyl. He has finished them. Another wound culture was done on 06/20/19. It showed MRSA, Klebsiella oxytoca, Corynebacterium striatum, and Streptococcus mitis/oralis. He was placed on Clindamycin and Bactrim and has finished them. He wasn't feeling well and a wound culture was done on 08/15/19. It showed MRSA, Streptococcus mitis/oralis, Corynebacterium striatum, Corynebacterium minutissimum, and Anaerobic cocci. Urine culture on 08/15/19 showed Enterococcus faecalis and Staphylococcus epidermidis. He was placed on Doxycycline, Cleocin, Flagyl, and Macrodantin. Pathology - positive for osteomyelitis. Prealbumin from 03/14/19 was 19.3. Encourage nutritional supplementation with protein to help the healing process. Today he denies fever. His appetite is ok. He does get upset stomach with antibiotics. Progress of Wound: Slight improvement. - Physical Exam Vital Signs Temp Pulse Resp BP 97.3 F L 94 16 90/65 10/31/19 10:06 10/12/19 00:24 10/31/19 10:06 10/12/19 00:24 Wound Measurements and Assessment WC - Nurse 1 - General Ulcer Measurement Start: 10/31/19 10:05 Freq: Status: Active Protocol: Activity Type Activity Date Activity User E-Sign Co-Sign Detail Recorded Client Recorded Date Recorded By Document 10/31/19 10:06 DAGO [id number] 10/31/19 10:11 DL 10/31/19 10:06 Wound Center Nurse 1 [Ulcer Assessment] #2 right ischium post op -Combined with other wound No -Current Size (cm) - Length 5.6 -Current Size (cm) - Width 4.6 -Current Size (cm) - Depth 1.3 -Total Square Cm 25.76 -Photo Taken No -Epithelialization None Present -Tunneling No -Undermining/Tunneling No -Circular Undermining No -Exudate Amt Large -Exudate Type Serosanguineous -Wound Margin Thickened & Rolled Under -Granulation Amt Large (67-100%) -Granulation Quality Red -Slough/Fibrin Yes -Necrosis Amt Small (1-33%) -Necrotic Tissue Type Adherent Slough -Structure Exposed Bone -Texture (Elizabeth-wound Skin Appearance) Assessed, Scarring -Moisture (Elizabeth-wound Skin Appearance Assessed ) -Color (Elizabeth-wound Skin Appearance) Assessed -Temperature (Elizabeth-wound Skin No Abnormality Appearance) (Pt Warm) -Tenderness on Palpation (Elizabeth-wound No Skin Appearance) -Ulcer Cleansing soapy water -Foul Odor after Cleansing No WC - Nurse 2 - General Ulcer CM Notes Start: 10/31/19 10:05 Freq: Status: Active Protocol: Activity Type Activity Date Activity User E-Sign Co-Sign Detail Recorded Client Recorded Date Recorded By Document 10/31/19 10:21 LIANE [id number] 10/31/19 10:25 10/31/19 10:21 Wound Center Nurse 2 [Procedure/Treatment] -Time 10:22 -Correct Patient Yes -Correct Side, Site, Position Yes -Correct Procedure Yes -Procedure Performed Yes -Type of Procedure Debridement -Clinical Debridement Muscle -Post Debridement Size (cm) - Length 5.6 -Post Debridement Size (cm) - Width 4.7 -Post Debridement Size (cm) - Depth 1.3 -Total Square Cm 26.32 -Wound/Ulcer Outcome Not Healed -Ulcer Cleansing Rinsed/ Irrigated with Saline -Foul Odor after Cleansing No -Bioengineered Tissue No -Bleeding Controlled with Pressure -Offloading No -Treatment Response Procedure Tolerated Well [See Physician Procedure note for Specifics] Pain Scale: 0-10 Numeric [Pain] -Is Patient Pain Free? Yes Debridement Note Post-Debridement Measurements/Treatment WC - Nurse 2 - General Ulcer CM Notes Start: 10/31/19 10:05 Freq: Status: Active Protocol: Activity Type Activity Date Activity User E-Sign Co-Sign Detail Recorded Client Recorded Date Recorded By Document 10/31/19 10:21 JF [id number] 10/31/19 10:25 10/31/19 10:21 Wound Center Nurse 2 #2 right ischium post op -Time 10:22 -Correct Patient Yes -Correct Side, Site, Position Yes -Correct Procedure Yes -Procedure Performed Yes -Type of Procedure Debridement -Clinical Debridement Muscle -Post Debridement Size (cm) - Length 5.6 -Post Debridement Size (cm) - Width 4.7 -Post Debridement Size (cm) - Depth 1.3 -Total Square Cm 26.32 -Wound/Ulcer Outcome Not Healed -Ulcer Cleansing Rinsed/ Irrigated with Saline -Foul Odor after Cleansing No -Bioengineered Tissue No -Bleeding Controlled with Pressure -Offloading No -Treatment Response Procedure Tolerated Well Pain Scale: 0-10 Numeric Is Patient Pain Free? Yes Wound debrided: #2 Right ischial area. Laterality: Right Wound Grade/Stage: IV. Type of Debridement: Excisional debridement Anesthesia Used: 4% Lidocaine Solution Depth: Down to and including healthy tissue, in the subcutaneous layer, to muscle, to bone - bone is exposed but not debrided. Percentage of wound debrided: 100 Instrument Used: 5mm curette Tissue Removed: subcutaneous tissue and muscle. Severity: Fat Layer Exposed - muscle is exposed. bone is exposed but not debrided. Amount of bleeding with debridement: Mild Bleeding Controlled with: Pressure Patient tolerated procedure well Assessment/Plan Assessment: 1. Right ischial pressure sore, stage IV. 2. Paraplegia. 3. Chronic refractory osteomyelitis. 4. MRSA. 5. s/p excision right ischial pressure sore, Stage IV, with partial ostectomy for osteomyelitis. Plan: Continue Dakin's moistened gauze dressing changes. He has finished the Doxycycline, Cleocin, Flagyl, and Macrodantin for wound culture on 08/15/19 that showed MRSA, Streptococcus mitis/oralis, Corynebacterium striatum, and Corynebacterium minutissimum, and Anaerobic cocci and for the urine culture that showed Enterococcus faecalis and Staphylococcus epidermidis. His soft tissue operative culture showed MRSA, Enterococcus faecalis, Morganella morganii, and Anaerobic cocci. His bone operative culture showed MRSA, Streptococcus anginosus, Morganella morganii, and Anaerobic cocci. He was placed on Vancomycin and Levaquin and Flagyl and has finished them. A wound culture was done on 06/20/19. It showed MRSA, Klebsiella oxytoca, Corynebacterium striatum, and Streptococcus mitis/oralis. He was placed on Clindamycin and Bactrim and has finished them. His Pathology was positive for osteomyelitis. With the recent diagnosis of osteomyelitis, he would be a candidate for HBO. He will think about it and let me know. A CT Pelvis was done on 11/07/17. It was suspicious for osteomyelitis. A repeat CT Pelvis was done on 05/17/18. Once again osteomyelitis is suspected and cannot be ruled out. Prealbumin from 03/14/19 was 19.3. Encourage nutritional supplementation with protein to help the healing process. He is still deciding about a muscle flap at some point in the future. Once again it was discussed with him and his family that the pressure sore in this area rarely heals without a muscle flap especially a Stage IV pressure sore involving the bone. Followup 4 weeks. 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
== END 2019-11-11 23:59 ==
LOC: WC 09:59
PROVIDERS: Family Provider Preventive Medicine Occupational Medicine; PCP Preventive Medicine Occupational Medicine; Referring Provider Nurse Practitioner Family; Visit Provider Nurse Practitioner Family
DX: L89.214 Pressure ulcer of right hip, stage 4 (principal); Z86.14 Personal history of Methicillin resistant Staphylococcus aureus infection; M86.68 Other chronic osteomyelitis, other site; G82.20 Paraplegia, unspecified
CPT/HCPCS: 11043; 11046

== ENCOUNTER 2019-11-21 15:53 | Emergency (ER) | payer BC, MEDICARE, SELFPAY ==
[2019-11-21 15:54] VITALS: BP 148/108; PULSE 102; RESP 30; TEMP 37.4; O2SAT 96; BMI 22.2
--- NOTE | 2019-11-21 16:33 | EKG12_ITS ---
Test Reason : WEAKNESS Blood Pressure : / mmHG Vent. Rate : 097 BPM Atrial Rate : 097 BPM P-R Int : 120 ms QRS Dur : 084 ms QT Int : 348 ms P-R-T Axes : 065 074 074 degrees QTc Int : 441 ms Sinus rhythm with Premature atrial complexes with Aberrant conduction Possible Left atrial enlargement Borderline ECG Confirmed by CHAY JACOBSON, RYLIE ([id number]), insurance loss assessor GISELLE REYES ([id number]) on 11/23/2019 1:30:16 PM Referred By: JULIANA Confirmed By:RYLIE CARTWRIGHT MD
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
[2019-11-21 17:47] LABS: Mucous, Urine 0 SEEN /hpf (<or=2+); Red Blood Cells-Urine 0 SEEN /hpf (0-5); Squamous Epithelial Cells - UA 0 SEEN /hpf (0-5)
[2019-11-21] MEDS: 0.9% Normal Saline 1,000 ML 999 ML IV (17:50)
[2019-11-21 17:53] LABS: Color, Urine Yellow (Yellow); Glucose, Dipstick Normal (Normal); Ketone-Dipstick 50 mg/dl (Negative); Leukocyte Esterase-Dipstick 500 /ul (Negative); Nitrite-Dipstick Positive (Negative); Occult Blood-Urine 10 /ul (Negative); Protein-Dipstick 15 mg/dl (Negative); Urine Bilirubin Dipstick Negative (Negative); Urine Clarity Clear (Clear); Urine Urobilinogen Normal (Normal)
[2019-11-21 17:54] LABS: Absolute Lymphocyte Count 1.03 X10^3/uL (0.83-4.51); Absolute Neutrophil Count 10.4 X10^3/uL (2.0-7.7); Basophil# 0.05 X10^3/uL; Basophil% 0.4 % (0-1); Eosinophil# 0.04 X10^3/uL; Eosinophils% 0.3 % (0-5); Hematocrit 39.8 % (40-54); Hemoglobin 12.2 g/dL (13.0-16.5); Lymphocyte # 1.03 X10^3/ul (4.0); Lymphocyte % 8.4 % (19-41); Mean Corp Hgb Conc 30.7 g/dL (32-36); Mean Corpuscular Hgb 23.6 pg (27.0-32.0); Mean Platelet Vol. 8.7 fl (6.2-12.0); Monocyte# 0.67 X10^3/uL; Monocyte% 5.5 % (0-10); NRBC Flagged by Analyzer 0 % (0-5); Neutrophil # 10.38 X10^3/uL (2.7-7.7); Platelet Count 324 K/mm3 (150-450); RBC Distribution Width CV 15.4 % (11.6-14.6); RBC Distribution Width SD 43.3 fl (35.1-43.9); Red Blood Count 5.17 M/mm3 (4.6-6.2); White Blood Count 12.2 K/mm3 (4.4-11.0)
[2019-11-21 17:56] VITALS: BP 98/62; PULSE 93; RESP 17; O2SAT 97
[2019-11-21 18:06] LABS: Bacteria 2+ /hpf (None Seen); White Blood Cells 25-50 SEEN /hpf (0-5)
[2019-11-21 18:27] LABS: Anion Gap 9 (5-15); BUN 19 mg/dL (7-18); BUN/Creat Ratio 54.3 RATIO (10-20); CPK Total, Creatine Kinase 85 U/L (39-308); Calcium,Total 8.6 mg/dL (8.5-10.1); Chloride 108 mmol/L (98-107); Creatinine, Serum 0.35 mg/dL (0.70-1.30); EST Glomerular Filtration Rate 279 mL/min (>60); Est Glom Filt Rate - Afr Amer 337 mL/min (>60); Estimated Creatinine Clearance 209.56 ml/min; Glucose 97 mg/dL (74-106); Potassium 3.6 mmol/L (3.5-5.1); Sodium Level 136 mmol/L (136-145)
--- NOTE | 2019-11-21 21:00 | ED.RN ---
[facility] CALLED ETA 40 MORE MINS FOR TRANSPORT
== END 2019-11-21 21:56 | disposition home or self-care (01) ==
PROVIDERS: Emergency Provider Emergency Medicine; PCP Preventive Medicine Occupational Medicine
DX: T67.5XXA Heat exhaustion, unspecified, initial encounter (principal); X30.XXXA Exposure to excessive natural heat, initial encounter; Y93.9 Activity, unspecified; Y92.9 Unspecified place or not applicable; G82.20 Paraplegia, unspecified; N39.0 Urinary tract infection, site not specified; Z79.899 Other long term (current) drug therapy
CPT/HCPCS: 80048; 81001; 82550; 83735; 84484; 85025; 93005; 96360; 99285; J7030; A4216

== ENCOUNTER 2019-11-28 10:02 | Outpatient (RCR) | payer BC, MEDICARE, SELFPAY ==
[2019-11-12 00:24] VITALS: BP 90/65; PULSE 94; RESP 16; TEMP 36.3
[2019-11-28 10:33] VITALS: BP 103/63; PULSE 89; RESP 16; TEMP 36.2; BMI 22.2
--- NOTE | 2019-11-28 16:42 | PCM.WC.PN ---
Type of Wound Date of Service: 11/28/19 Chief Complaint: Right ischial pressure sore, Stage IV. History of Wound: Surgery 03/02/19 - Excision right ischial pressure sore, Stage IV, with partial ostectomy for osteomyelitis. Wound care - Dakin's. Operative cultures - MRSA, Enterococcus faecalis, Morganella morganii, and Anaerobic cocci in the soft tissue and MRSA, Streptococcus anginosus, Morganella morganii, and Anaerobic cocci in the bone. He was started on IV Vancomycin, and Levaquin, and Flagyl. He has finished them. Another wound culture was done on 06/20/19. It showed MRSA, Klebsiella oxytoca, Corynebacterium striatum, and Streptococcus mitis/oralis. He was placed on Clindamycin and Bactrim and has finished them. He wasn't feeling well and a wound culture was done on 08/15/19. It showed MRSA, Streptococcus mitis/oralis, Corynebacterium striatum, Corynebacterium minutissimum, and Anaerobic cocci. Urine culture on 08/15/19 showed Enterococcus faecalis and Staphylococcus epidermidis. He was placed on Doxycycline, Cleocin, Flagyl, and Macrodantin. Pathology - positive for osteomyelitis. Prealbumin from 03/14/19 was 19.3. Encourage nutritional supplementation with protein to help the healing process. Today he denies fever. His appetite is ok. He does get upset stomach with antibiotics. Progress of Wound: Slight improvement. - Physical Exam Vital Signs Temp Pulse Resp BP 97.1 F L 89 16 103/63 11/28/19 10:33 11/28/19 10:33 11/28/19 10:33 11/28/19 10:33 Wound Measurements and Assessment WC - Nurse 1 - General Ulcer Measurement Start: 11/28/19 10:21 Freq: Status: Active Protocol: Activity Type Activity Date Activity User E-Sign Co-Sign Detail Recorded Client Recorded Date Recorded By Document 11/28/19 10:33 [facility] [id number] 11/28/19 10:42 BM 11/28/19 10:33 Wound Center Nurse 1 [Ulcer Assessment] #2 right ischium post op -Combined with other wound No -Current Size (cm) - Length 5.7 -Current Size (cm) - Width 4.6 -Current Size (cm) - Depth 1.8 -Total Square Cm 26.22 -Photo Taken No -Epithelialization None Present -Tunneling Yes -Tunneling Position (O'clock) 11 -Tunneling Distance (cm) 3.5 -Undermining/Tunneling No -Circular Undermining No -Exudate Amt Medium -Exudate Type Serosanguineous -Wound Margin Thickened & Rolled Under -Granulation Amt Large (67-100%) -Granulation Quality Red -Slough/Fibrin Yes -Necrosis Amt Small (1-33%) -Necrotic Tissue Type Adherent Slough -Structure Exposed Bone -Texture (Elizabeth-wound Skin Appearance) Assessed -Moisture (Elizabeth-wound Skin Appearance Assessed ) -Color (Elizabeth-wound Skin Appearance) Assessed -Temperature (Elizabeth-wound Skin No Abnormality Appearance) (Pt Warm) -Tenderness on Palpation (Elizabeth-wound No Skin Appearance) -Ulcer Cleansing Rinsed/ Irrigated with Saline -Foul Odor after Cleansing No -Anesthetic Used 4% Lidocaine Solution WC - Nurse 2 - General Ulcer CM Notes Start: 11/28/19 10:21 Freq: Status: Active Protocol: Activity Type Activity Date Activity User E-Sign Co-Sign Detail Recorded Client Recorded Date Recorded By Document 11/28/19 10:56 LIANE [id number] 11/28/19 10:58 LIAEN 11/28/19 10:56 Wound Center Nurse 2 [Procedure/Treatment] -Time 10:56 -Correct Patient Yes -Correct Side, Site, Position Yes -Correct Procedure Yes -Procedure Performed Yes -Type of Procedure Debridement -Clinical Debridement Muscle / Fascia -Tissue Removed Muscle -Post Debridement (cm) - Length 6.0 -Post Debridement (cm) - Width 3.5 -Post Debridement (cm) - Depth 2.0 -Total Square (Post) (cm) 21.00 -Area of Debridement (cm) - Length 6 -Area of Debridement (cm) - Width 3.5 -Total Square (Area) (cm) 21.0 -Tunneling Yes -Tunneling Position (O'clock) 12 -Tunneling Distance (cm) 3.0 -Undermining/Tunneling No -Circular Undermining No -Ulcer Cleansing Rinsed/ Irrigated with Saline -Foul Odor after Cleansing No -Bioengineered Tissue No -Debridement - Muscle / Fascia, 1st Yes 20sq cm -Debridement, Muscle/Fascia, ea addt' 1 l 20sq cm or part thereof [See Physician Procedure note for Specifics] Pain Scale: 0-10 Numeric [Pain] -Is Patient Pain Free? Yes Debridement Note Post-Debridement Measurements/Treatment WC - Nurse 2 - General Ulcer CM Notes Start: 11/28/19 10:21 Freq: Status: Active Protocol: Activity Type Activity Date Activity User E-Sign Co-Sign Detail Recorded Client Recorded Date Recorded By Document 11/28/19 10:56 [id number] 11/28/19 10:58 11/28/19 10:56 Wound Center Nurse 2 #2 right ischium post op -Time 10:56 -Correct Patient Yes -Correct Side, Site, Position Yes -Correct Procedure Yes -Procedure Performed Yes -Type of Procedure Debridement -Clinical Debridement Muscle / Fascia -Tissue Removed Muscle -Post Debridement (cm) - Length 6.0 -Post Debridement (cm) - Width 3.5 -Post Debridement (cm) - Depth 2.0 -Total Square (Post) (cm) 21.00 -Area of Debridement (cm) - Length 6 -Area of Debridement (cm) - Width 3.5 -Total Square (Area) (cm) 21.0 -Tunneling Yes -Tunneling Position (O'clock) 12 -Tunneling Distance (cm) 3.0 -Undermining/Tunneling No -Circular Undermining No -Ulcer Cleansing Rinsed/ Irrigated with Saline -Foul Odor after Cleansing No -Bioengineered Tissue No -Debridement - Muscle / Fascia, 1st Yes 20sq cm -Debridement, Muscle/Fascia, ea addt'l 1 20sq cm or part thereof Pain Scale: 0-10 Numeric Is Patient Pain Free? Yes Wound debrided: #2 Right ischial area. Laterality: Right Wound Grade/Stage: IV. Type of Debridement: Excisional debridement Anesthesia Used: 4% Lidocaine Solution Depth: Down to and including healthy tissue, in the subcutaneous layer, to muscle, to bone - bone is exposed but not debrided. Percentage of wound debrided: 100 Instrument Used: 7mm curette Tissue Removed: subcutaneous tissue and muscle. Severity: Fat Layer Exposed - muscle is exposed. bone is exposed but not debrided. Amount of bleeding with debridement: Mild Bleeding Controlled with: Pressure Patient tolerated procedure well Assessment/Plan Assessment: 1. Right ischial pressure sore, stage IV. 2. Paraplegia. 3. Chronic refractory osteomyelitis. 4. MRSA. 5. s/p excision right ischial pressure sore, Stage IV, with partial ostectomy for osteomyelitis. Plan: Continue Dakin's moistened gauze dressing changes. He has finished the Doxycycline, Cleocin, Flagyl, and Macrodantin for wound culture on 08/15/19 that showed MRSA, Streptococcus mitis/oralis, Corynebacterium striatum, and Corynebacterium minutissimum, and Anaerobic cocci and for the urine culture that showed Enterococcus faecalis and Staphylococcus epidermidis. His soft tissue operative culture showed MRSA, Enterococcus faecalis, Morganella morganii, and Anaerobic cocci. His bone operative culture showed MRSA, Streptococcus anginosus, Morganella morganii, and Anaerobic cocci. He was placed on Vancomycin and Levaquin and Flagyl and has finished them. A wound culture was done on 06/20/19. It showed MRSA, Klebsiella oxytoca, Corynebacterium striatum, and Streptococcus mitis/oralis. He was placed on Clindamycin and Bactrim and has finished them. His Pathology was positive for osteomyelitis. With the recent diagnosis of osteomyelitis, he would be a candidate for HBO. He will think about it and let me know. A CT Pelvis was done on 11/07/17. It was suspicious for osteomyelitis. A repeat CT Pelvis was done on 05/17/18. Once again osteomyelitis is suspected and cannot be ruled out. Prealbumin from 03/14/19 was 19.3. Encourage nutritional supplementation with protein to help the healing process. He is still deciding about a muscle flap at some point in the future. Once again it was discussed with him and his family that the pressure sore in this area rarely heals without a muscle flap especially a Stage IV pressure sore involving the bone. Followup 4 weeks. [id number]: [id number] Mirella musc/fascia 20 sq cm/< - ICD-10 - L89.314, M86.9, G82.20, A49.02 Add On Codes: 37937 Mirella musc/fascia add-on - ICD-10 - L89.314, M86.9, G82.20, A49.02
== END 2019-12-12 23:59 ==
LOC: WC 10:02
PROVIDERS: Family Provider Preventive Medicine Occupational Medicine; PCP Preventive Medicine Occupational Medicine; Referring Provider Nurse Practitioner Family; Visit Provider Nurse Practitioner Family
DX: L89.314 Pressure ulcer of right buttock, stage 4 (principal); M86.9 Osteomyelitis, unspecified; G82.20 Paraplegia, unspecified; Z79.899 Other long term (current) drug therapy
CPT/HCPCS: 11043; 11046

== ENCOUNTER → 2019-12-09 13:39 | Outpatient (CLI) | payer BC, MEDICARE, SELFPAY ==
[2019-11-21 15:54] VITALS: BMI 22.2
[2019-11-28 10:33] VITALS: BMI 22.2
--- NOTE | 2019-12-09 13:55 | US_ITS ---
STUDY: RENAL ULTRASOUND - COMPLETE REASON FOR EXAM: Male, 54 years old. NEURO DYSFUYNCTION OF BLADDER -- QUADRIPLEGIC TECHNIQUE: Ultrasound evaluation of the kidneys was performed with real-time and static mccain-scale imaging. COMPARISON: None. FINDINGS: RIGHT KIDNEY: Normal location of the right kidney, which is normal in size. The right kidney measures 10.0 x 4.2 x 4.2 cm. There is a normal cortex of the right kidney. The renal cortex measures 0.8 cm. There is no right renal mass or cyst. There is a 3 mm nonobstructing stone. There is no right hydronephrosis. DISTAL RIGHT URETER: There is non-visualization of the distal right ureter. There is no demonstrated right ureterovesical junction calculus. There is a visualized right ureteral jet. LEFT KIDNEY: Normal location of the left kidney, which is normal in size. The left kidney measures 10.0 x 4.0 x 4.6 cm. There is a normal cortex of the left kidney. The renal cortex measures 1.0 cm. There is no left renal mass or cyst. Nonobstructing 3 mm stone. There is no left hydronephrosis. DISTAL LEFT URETER: There is non-visualization of the distal left ureter. There is no demonstrated left ureterovesical junction calculus. There is a visualized left ureteral jet. AORTA: There is no elongation or tortuosity of the abdominal aorta. I.V.C.: The IVC is patent. BLADDER: The bladder is incompletely distended and shows wall thickening of 5 mm. There is also a 6 mm stone in the dependent bladder. US/Kidney and Bladder IMPRESSION: Bilateral nonobstructing nephrolithiasis No obstructive uropathy or suspicious solid renal lesion Bladder wall thickening, there is a 6 mm stone in the dependent bladder Electronically Signed: Juan Ortega MD at 15:56 EDT , Service support ,
[2019-12-09 16:03] LABS: Anion Gap 7 (5-15); BUN 18 mg/dL (7-18); BUN/Creat Ratio 26.4 RATIO (10-20); Calcium,Total 8.9 mg/dL (8.5-10.1); Chloride 103 mmol/L (98-107); Creatinine, Serum 0.68 mg/dL (0.70-1.30); EST Glomerular Filtration Rate 129 mL/min (>60); Est Glom Filt Rate - Afr Amer 156 mL/min (>60); Glucose 123 mg/dL (74-106); PSA,Total - Annual Screen 3.01 ng/mL (0.00-4.00); Potassium 4.1 mmol/L (3.5-5.1); Sodium Level 136 mmol/L (136-145)
== END ==
PROVIDERS: PCP Preventive Medicine Occupational Medicine; Referring Provider Nurse Practitioner Adult Health; Visit Provider Nurse Practitioner Adult Health
DX: N31.9 Neuromuscular dysfunction of bladder, unspecified (principal)
CPT/HCPCS: 36415; 76770; 80048; 84153; G0103

== ENCOUNTER 2020-01-09 08:38 | Outpatient (RCR) | payer BC, MEDICARE, SELFPAY ==
[2019-12-13 00:29] VITALS: BP 103/63; PULSE 89; RESP 16; TEMP 36.2
[2020-01-09 10:46] VITALS: BP 68/40; PULSE 96; RESP 18; TEMP 36.8; BMI 22.2
[2020-01-09 11:33] VITALS: RESP 16
--- NOTE | 2020-01-09 13:00 | PCM.WC.PN ---
Type of Wound Date of Service: 01/09/20 Chief Complaint: Right ischial pressure sore, Stage IV. History of Wound: Surgery 03/02/19 - Excision right ischial pressure sore, Stage IV, with partial ostectomy for osteomyelitis. Wound care - Dakin's. Operative cultures - MRSA, Enterococcus faecalis, Morganella morganii, and Anaerobic cocci in the soft tissue and MRSA, Streptococcus anginosus, Morganella morganii, and Anaerobic cocci in the bone. He was started on IV Vancomycin, and Levaquin, and Flagyl. He has finished them. Another wound culture was done on 06/20/19. It showed MRSA, Klebsiella oxytoca, Corynebacterium striatum, and Streptococcus mitis/oralis. He was placed on Clindamycin and Bactrim and has finished them. He wasn't feeling well and a wound culture was done on 08/15/19. It showed MRSA, Streptococcus mitis/oralis, Corynebacterium striatum, Corynebacterium minutissimum, and Anaerobic cocci. Urine culture on 08/15/19 showed Enterococcus faecalis and Staphylococcus epidermidis. He was placed on Doxycycline, Cleocin, Flagyl, and Macrodantin. Pathology - positive for osteomyelitis. Prealbumin from 03/14/19 was 19.3. Encourage nutritional supplementation with protein to help the healing process. Today he denies fever. His appetite is ok. He does get upset stomach with antibiotics. Progress of Wound: Slight improvement. - Physical Exam Vital Signs Temp Pulse Resp BP 98.2 F 96 16 68/40 L 01/09/20 10:46 01/09/20 10:46 01/09/20 11:33 01/09/20 10:46 Wound Measurements and Assessment WC - Nurse 1 - General Ulcer Measurement Start: 01/09/20 10:46 Freq: Status: Active Protocol: Activity Type Activity Date Activity User E-Sign Co-Sign Detail Recorded Client Recorded Date Recorded By Document 01/09/20 10:46 DL [id number] 01/09/20 10:59 DL 01/09/20 10:46 Wound Center Nurse 1 [Ulcer Assessment] #2 right ischium post op -Current Size (cm) - Length 5.5 -Current Size (cm) - Width 4.6 -Current Size (cm) - Depth 1.5 -Total Square Cm 25.30 -Photo Taken No -Exudate Amt Medium -Exudate Type Serosanguineous -Wound Margin Thickened & Rolled Under -Granulation Amt Large (67-100%) -Granulation Quality Red -Necrosis Amt Small (1-33%) -Necrotic Tissue Type Adherent Slough -Structure Exposed Bone -Texture (Elizabeth-wound Skin Appearance) Scarring -Moisture (Elizabeth-wound Skin Appearance No Abnormality ) -Color (Elizabeth-wound Skin Appearance) No Abnormality -Temperature (Elizabeth-wound Skin No Abnormality Appearance) (Pt Warm) -Tenderness on Palpation (Elizabeth-wound No Skin Appearance) -Ulcer Cleansing Wound Cleanser -Foul Odor after Cleansing No -Anesthetic Used 4% Lidocaine Solution WC - Nurse 2 - General Ulcer CM Notes Start: 01/09/20 10:46 Freq: Status: Active Protocol: Activity Type Activity Date Activity User E-Sign Co-Sign Detail Recorded Client Recorded Date Recorded By Document 01/09/20 11:12 [id number] 01/09/20 11:15 01/09/20 11:12 Wound Center Nurse 2 [Procedure/Treatment] -Time 11:12 -Correct Patient Yes -Correct Side, Site, Position Yes -Correct Procedure Yes -Procedure Performed Yes -Type of Procedure Debridement -Clinical Debridement Muscle / Fascia -Tissue Removed Muscle -Post Debridement (cm) - Length 5.5 -Post Debridement (cm) - Width 4.6 -Post Debridement (cm) - Depth 1.6 -Total Square (Post) (cm) 25.30 -Area of Debridement (cm) - Length 5.5 -Area of Debridement (cm) - Width 4.6 -Total Square (Area) (cm) 25.30 -Tunneling No -Undermining/Tunneling No -Undermining/Tunneling Starts (O' 7 clock) -Undermining/Tunneling Ends (O'clock) 1 -Maximum Distance (cm) 1.7 -Circular Undermining No -Wound/Ulcer Outcome Not Healed -Ulcer Cleansing Rinsed/ Irrigated with Saline -Foul Odor after Cleansing No -Bioengineered Tissue No -Bleeding Controlled with Pressure -Offloading No -Treatment Response Procedure Tolerated Well -Debridement - Muscle / Fascia, 1st Yes 20sq cm -Debridement, Muscle/Fascia, ea addt' 1 l 20sq cm or part thereof [See Physician Procedure note for Specifics] Pain Scale: 0-10 Numeric [Pain] -Is Patient Pain Free? Yes - Nurse 3 - General Ulcer D/C NN Start: 01/09/20 10:46 Freq: Status: Active Protocol: Activity Type Activity Date Activity User E-Sign Co-Sign Detail Recorded Client Recorded Date Recorded By Document 01/09/20 11:33 [facility] [id number] 01/09/20 11:35 [facility] 01/09/20 11:33 Wound Care Nurse 3 [Wound Dressing] #2 right ischium post op -Ulcer Cleansing Rinsed/ Irrigated with Saline -Foul Odor after Cleansing No -Primary Dressing Applied Other -Primary Dressing Covered/Secured Dry Gauze, with Secured with Tape,Other -Other Covering abd [Post Procedure Tolerated] -Treatment Response Procedure Tolerated Well Vital Signs [Pulse] -Pulse Location Monitor [Respirations] -Respiratory Rate (12-18) 16 -Respiratory rate source Observation -Oxygen Delivery Method Room Air Pain Scale: 0-10 Numeric [Pain] -Is Patient Pain Free? Yes - Visit Discharge [Visit Discharge Information] -Discharge Condition Stable -Ambulatory Status Wheelchair -Transportation Private Auto -Accompanied by Debridement Note Post-Debridement Measurements/Treatment - Nurse 2 - General Ulcer CM Notes Start: 01/09/20 10:46 Freq: Status: Active Protocol: Activity Type Activity Date Activity User E-Sign Co-Sign Detail Recorded Client Recorded Date Recorded By Document 01/09/20 11:12 [id number] 01/09/20 11:15 01/09/20 11:12 Wound Center Nurse 2 #2 right ischium post op -Time 11:12 -Correct Patient Yes -Correct Side, Site, Position Yes -Correct Procedure Yes -Procedure Performed Yes -Type of Procedure Debridement -Clinical Debridement Muscle / Fascia -Tissue Removed Muscle -Post Debridement (cm) - Length 5.5 -Post Debridement (cm) - Width 4.6 -Post Debridement (cm) - Depth 1.6 -Total Square (Post) (cm) 25.30 -Area of Debridement (cm) - Length 5.5 -Area of Debridement (cm) - Width 4.6 -Total Square (Area) (cm) 25.30 -Tunneling No -Undermining/Tunneling No -Undermining/Tunneling Starts (O'clock 7 ) -Undermining/Tunneling Ends (O'clock) 1 -Maximum Distance (cm) 1.7 -Circular Undermining No -Wound/Ulcer Outcome Not Healed -Ulcer Cleansing Rinsed/ Irrigated with Saline -Foul Odor after Cleansing No -Bioengineered Tissue No -Bleeding Controlled with Pressure -Offloading No -Treatment Response Procedure Tolerated Well -Debridement - Muscle / Fascia, 1st Yes 20sq cm -Debridement, Muscle/Fascia, ea addt'l 1 20sq cm or part thereof Pain Scale: 0-10 Numeric Is Patient Pain Free? Yes - Nurse 3 - General Ulcer D/C NN Start: 01/09/20 10:46 Freq: Status: Active Protocol: Activity Type Activity Date Activity User E-Sign Co-Sign Detail Recorded Client Recorded Date Recorded By Document 01/09/20 11:33 [facility] [id number] 01/09/20 11:35 [facility] 01/09/20 11:33 Wound Care Nurse 3 #2 right ischium post op -Ulcer Cleansing Rinsed/ Irrigated with Saline -Foul Odor after Cleansing No -Primary Dressing Applied Other -Primary Dressing Covered/Secured with Dry Gauze, Secured with Tape,Other -Other Covering abd Treatment Response Procedure Tolerated Well Vital Signs Pulse Location Monitor Respiratory Rate (12-18) 16 Respiratory rate source Observation Oxygen Delivery Method Room Air Pain Scale: 0-10 Numeric Is Patient Pain Free? Yes - Visit Discharge Discharge Condition Stable Ambulatory Status Wheelchair Transportation Private Auto Accompanied by Wound debrided: #2 Right ischial area. Laterality: Right Wound Grade/Stage: IV. Type of Debridement: Excisional debridement Anesthesia Used: 4% Lidocaine Solution Depth: Down to and including healthy tissue, in the subcutaneous layer, to muscle, to bone - bone has small area of exposure as most has been covered with granulation tissue. Percentage of wound debrided: 100 Instrument Used: 5mm curette Tissue Removed: subcutaneous tissue and muscle. Severity: Fat Layer Exposed - muscle is exposed. bone has small area of exposure as most has been covered with granulation tissue. Amount of bleeding with debridement: Mild Bleeding Controlled with: Pressure Patient tolerated procedure well Assessment/Plan Assessment: 1. Right ischial pressure sore, stage IV. 2. Paraplegia. 3. Chronic refractory osteomyelitis. 4. MRSA. 5. s/p excision right ischial pressure sore, Stage IV, with partial ostectomy for osteomyelitis. Plan: Continue Dakin's moistened gauze dressing changes. He has finished the Doxycycline, Cleocin, Flagyl, and Macrodantin for wound culture on 08/15/19 that showed MRSA, Streptococcus mitis/oralis, Corynebacterium striatum, and Corynebacterium minutissimum, and Anaerobic cocci and for the urine culture that showed Enterococcus faecalis and Staphylococcus epidermidis. His soft tissue operative culture showed MRSA, Enterococcus faecalis, Morganella morganii, and Anaerobic cocci. His bone operative culture showed MRSA, Streptococcus anginosus, Morganella morganii, and Anaerobic cocci. He was placed on Vancomycin and Levaquin and Flagyl and has finished them. A wound culture was done on 06/20/19. It showed MRSA, Klebsiella oxytoca, Corynebacterium striatum, and Streptococcus mitis/oralis. He was placed on Clindamycin and Bactrim and has finished them. His Pathology was positive for osteomyelitis. With the recent diagnosis of osteomyelitis, he would be a candidate for HBO. He will think about it and let me know. A CT Pelvis was done on 11/07/17. It was suspicious for osteomyelitis. A repeat CT Pelvis was done on 05/17/18. Once again osteomyelitis is suspected and cannot be ruled out. Prealbumin from 03/14/19 was 19.3. Encourage nutritional supplementation with protein to help the healing process. He is still deciding about a muscle flap at some point in the future. Once again it was discussed with him and his family that the pressure sore in this area rarely heals without a muscle flap especially a Stage IV pressure sore involving the bone. Followup 4 weeks. 111xxx-113xx: [id number] Mirella musc/fascia 20 sq cm/< - ICD-10 - L89.314, M86.9, G82.20, A49.02 Add On Codes: [id number] Mirella musc/fascia add-on - ICD-10 - L89.314, M86.9, G82.20, A49.02
== END 2020-01-11 23:59 ==
LOC: WC 08:38
PROVIDERS: Family Provider Preventive Medicine Occupational Medicine; PCP Preventive Medicine Occupational Medicine; Referring Provider Nurse Practitioner Family; Visit Provider Nurse Practitioner Family
CPT/HCPCS: 11043; 11046

== ENCOUNTER → 2020-01-24 | Outpatient (CLI) | payer BC, MEDICARE, SELFPAY ==
[2020-01-09 10:46] VITALS: BMI 22.2
== END | disposition home or self-care (01) ==
PROVIDERS: PCP Preventive Medicine Occupational Medicine; Referring Provider Urology; Visit Provider Urology
CPT/HCPCS: 87077; 87086; 87088; 87186

== ENCOUNTER 2020-02-06 10:26 | Outpatient (RCR) | payer BC, MEDICARE, SELFPAY ==
[2020-01-12 00:28] VITALS: BP 68/40; PULSE 96; RESP 16; TEMP 36.8
[2020-02-06 10:35] VITALS: BP 96/70; PULSE 94; RESP 16; TEMP 36.2; BMI 22.2
--- NOTE | 2020-02-08 14:20 | PN.PCM_ITS ---
(1) Right ischial pressure sore, stage 4 Status: Chronic Code(s): L89.314 - Pressure ulcer of right buttock, stage 4 (2) Osteomyelitis of right side of pelvis Status: Chronic Code(s): M86.9 - Osteomyelitis, unspecified (3) Complicated wound infection Status: Chronic Code(s): T14.8 - Other injury of unspecified body region; L08.9 - Local infection of the skin and subcutaneous tissue, unspecified (4) History of osteomyelitis Status: Chronic Code(s): Z87.39 - Personal history of other diseases of the musculoskeletal system and connective tissue (5) Paraplegic immobility syndrome Status: Chronic Code(s): M62.3 - Immobility syndrome (paraplegic) Type of Wound Date of Service: 02/06/20 Chief Complaint: Right ischial pressure sore, Stage IV. History of Wound: Surgery 03/02/19 - Excision right ischial pressure sore, Stage IV, with partial ostectomy for osteomyelitis. Wound care - Dakomi's. Operative cultures - MRSA, Enterococcus faecalis, Morganella morganii, and Anaerobic cocci in the soft tissue and MRSA, Streptococcus anginosus, Morganella morganii, and Anaerobic cocci in the bone. He was started on IV Vancomycin, and Levaquin, and Flagyl. He has finished them. Another wound culture was done on 06/20/19. It showed MRSA, Klebsiella oxytoca, Corynebacterium striatum, and Streptococcus mitis/oralis. He was placed on Clindamycin and Bactrim and has finished them. He wasn't feeling well and a wound culture was done on 08/15/19. It showed MRSA, Streptococcus mitis/oralis, Corynebacterium striatum, Corynebacterium minutissimum, and Anaerobic cocci. Urine culture on 08/15/19 showed Enterococcus faecalis and Staphylococcus epidermidis. He was placed on Doxycycline, Cleocin, Flagyl, and Macrodantin. Pathology - positive for oste omyelitis. Prealbumin from 03/14/19 was 19.3. Encourage nutritional supplementation with protein to help the healing process. Today he denies fever. His appetite is ok. He does get upset stomach with antibiotics. Progress of Wound: Wound is stable. The patient denies any fever, chills, nausea, vomiting, or diarrhea. Denies any increasing pain, redness, swelling, or purulent/malodorous drainage from affected area. - Physical Exam Vital Signs Temp Pulse Resp BP 97.1 F L 94 16 96/70 02/06/20 10:35 02/06/20 10:35 02/06/20 10:35 02/06/20 10:35 General: Alert, Cooperative, No apparent distress Oral: Moist Mucosa Neck: Supple Lungs: Normal air movement Extremities: Capillary Refill Less than 3 Seconds Skin: Ulcer/ Wound - Stage IV right ischial pressure ulcer with bone exposed. Wound Measurements and Assessment WC - Nurse 1 - General Ulcer Measurement Start: 02/06/20 10:34 Freq: Status: Active Protocol: Activity Type Activity Date Activity User E-Sign Co-Sign Detail Recorded Client Recorded Date Recorded By Document 02/06/20 10:35 [facility] [id number] 02/06/20 10:49 [facility] 02/06/20 10:35 Wound Center Nurse 1 [Ulcer Assessment] #2 right ischium post op -Combined with other wound No -Current Size (cm) - Length 5.8 -Current Size (cm) - Width 5 -Current Size (cm) - Depth 1.6 -Total Square Cm 29.0 -Photo Taken No -Epithelialization None Present -Tunneling No -Undermining/Tunneling No -Circular Undermining No -Exudate Amt Large -Exudate Type Serosanguineous -Wound Margin Thickened & Rolled Under -Granulation Amt Large (67-100%) -Granulation Quality Red -Slough/Fibrin Yes -Necrosis Amt Small (1-33%) -Necrotic Tissue Type Adherent Slough -Texture (Elizabeth-wound Skin Appearance) Assessed, Scarring -Moisture (Elizabeth-wound Skin Appearance Assessed ) -Color (Elizabeth-wound Skin Appearance) Assessed -Temperature (Elizabeth-wound Skin No Abnormality Appearance) (Pt Warm) -Tenderness on Palpation (Elizabeth-wound No Skin Appearance) -Ulcer Cleansing Rinsed/ Irrigated with Saline -Foul Odor after Cleansing No -Anesthetic Used 5% Lidocaine Gel WC - Nurse 2 - General Ulcer CM Notes Start: 02/06/20 10:34 Freq: Status: Active Protocol: Activity Type Activity Date Activity User E-Sign Co-Sign Detail Recorded Client Recorded Date Recorded By Document 02/06/20 11:19 [id number] 02/06/20 11:24 [facility] 02/06/20 11:19 Wound Center Nurse 2 [Procedure/Treatment] -Time 11:19 -Correct Patient Yes -Correct Side, Site, Position Yes -Correct Procedure Yes -Procedure Performed Yes -Type of Procedure Debridement -Clinical Debridement Muscle / Fascia -Tissue Removed Muscle -Post Debridement (cm) - Length 6.5 -Post Debridement (cm) - Width 4.5 -Post Debridement (cm) - Depth 1.5 -Total Square (Post) (cm) 29.25 -Area of Debridement (cm) - Length 6.5 -Area of Debridement (cm) - Width 4.5 -Total Square (Area) (cm) 29.25 -Tunneling No -Undermining/Tunneling Yes -Undermining/Tunneling Starts (O' 9 clock) -Undermining/Tunneling Ends (O'clock) 1 -Maximum Distance (cm) 2.2 -Circular Undermining No -Ulcer Cleansing Rinsed/ Irrigated with Saline -Foul Odor after Cleansing No -Bioengineered Tissue No -Bleeding Controlled with Pressure -Offloading No -Treatment Response Procedure Tolerated Well -Debridement - Muscle / Fascia, 1st Yes 20sq cm -Debridement, Muscle/Fascia, ea addt' 1 l 20sq cm or part thereof [See Physician Procedure note for Specifics] Pain Scale: 0-10 Numeric [Pain] -Is Patient Pain Free? Yes Psych/Mental Status: Normal Affect, Appropriate Debridement Note Post-Debridement Measurements/Treatment WC - Nurse 2 - General Ulcer CM Notes Start: 02/06/20 10:34 Freq: Status: Active Protocol: Activity Type Activity Date Activity User E-Sign Co-Sign Detail Recorded Client Recorded Date Recorded By Document 02/06/20 11:19 [facility]ANE [id number] 02/06/20 11:24 02/06/20 11:19 Wound Center Nurse 2 #2 right ischium post op -Time 11:19 -Correct Patient Yes -Correct Side, Site, Position Yes -Correct Procedure Yes -Procedure Performed Yes -Type of Procedure Debridement -Clinical Debridement Muscle / Fascia -Tissue Removed Muscle -Post Debridement (cm) - Length 6.5 -Post Debridement (cm) - Width 4.5 -Post Debridement (cm) - Depth 1.5 -Total Square (Post) (cm) 29.25 -Area of Debridement (cm) - Length 6.5 -Area of Debridement (cm) - Width 4.5 -Total Square (Area) (cm) 29.25 -Tunneling No -Undermining/Tunneling Yes -Undermining/Tunneling Starts (O'clock 9 ) -Undermining/Tunneling Ends (O'clock) 1 -Maximum Distance (cm) 2.2 -Circular Undermining No -Ulcer Cleansing Rinsed/ Irrigated with Saline -Foul Odor after Cleansing No -Bioengineered Tissue No -Bleeding Controlled with Pressure -Offloading No -Treatment Response Procedure Tolerated Well -Debridement - Muscle / Fascia, 1st Yes 20sq cm -Debridement, Muscle/Fascia, ea addt'l 1 20sq cm or part thereof Pain Scale: 0-10 Numeric Is Patient Pain Free? Yes Wound debrided: Right ischial ulcer Laterality: Right Wound Grade/Stage: IV Type of Debridement: Excisional debridement Anesthesia Used: 4% Lidocaine Solution Depth: to bone Percentage of wound debrided: 100 Instrument Used: 5mm curette Tissue Removed: Slough and devitalized tissue Severity: Fat Layer Exposed - Muscle and bone exposure Amount of bleeding with debridement: Mild Bleeding Controlled with: Pressure Patient tolerated procedure well Assessment/Plan Assessment: 1. Right ischial pressure sore, stage IV. 2. Paraplegia. 3. Chronic refractory osteomyelitis. 4. MRSA. 5. s/p excision right ischial pressure sore, Stage IV, with partial ostectomy for osteomyelitis. Plan: Continue Dakin's moistened gauze dressing changes. He has finished the Doxycycline, Cleocin, Flagyl, and Macrodantin for wound culture on 08/15/19 that showed MRSA, Streptococcus mitis/oralis, Corynebacterium striatum, and Corynebacterium minutissimum, and Anaerobic cocci and for the urine culture that showed Enterococcus faecalis and Staphylococcus epidermidis. His soft tissue operative culture showed MRSA, Enterococcus faecalis, Morganella morganii, and Anaerobic cocci. His bone operative culture showed MRSA, Streptococcus anginosus, Morganella morganii, and Anaerobic cocci. He was placed on Vancomycin and Levaquin and Flagyl and has finished them. A wound culture was done on 06/20/19. It showed MRSA, Klebsiella oxytoca, Corynebacterium striatum, and Streptococcus mitis/oralis. He was placed on Clindamycin and Bactrim and has finished them. His Pathology was positive for osteomyelitis. With the recent diagnosis of osteomyelitis, he would be a candidate for HBO. He will think about it and let us know. A CT Pelvis was done on 11/07/17. It was suspicious for osteomyelitis. A repeat CT Pelvis was done on 05/17/18. Once again osteomyelitis is suspected and cannot be ruled out. Prealbumin from 03/14/19 was 19.3. Encourage nutritional supplementation with protein to help the healing process. He is still deciding about a muscle flap at some point in the future. Once again it was discussed with him and his family that the pressure sore in this area rarely heals without a muscle flap especially a Stage IV pressure sore involving the bone. Follow-up for reassessment in 4 weeks. Follow-up sooner should new or concerning symptoms arise. Note: [employer] speech recognition peripatologist software was used to create portions of this document. Sound-alike and misspelled words, as well as other peripatologist errors may be contained in the documentation. 111xxx-113xx: [id number] Mirella musc/fascia 20 sq cm/< Add On Codes: 88389 Mirella musc/fascia add-on - x1
== END 2020-02-11 23:59 ==
LOC: WC 10:26
PROVIDERS: Family Provider Preventive Medicine Occupational Medicine; PCP Preventive Medicine Occupational Medicine; Referring Provider Nurse Practitioner Family; Visit Provider Nurse Practitioner Family
DX: L89.314 Pressure ulcer of right buttock, stage 4 (principal); M62.3 Immobility syndrome (paraplegic); G82.20 Paraplegia, unspecified; M86.9 Osteomyelitis, unspecified; A49.02 Methicillin resistant Staphylococcus aureus infection, unspecified site; Z87.39 Personal history of other diseases of the musculoskeletal system and connective tissue
CPT/HCPCS: 11043; 11046

== ENCOUNTER 2020-03-05 10:00 | Outpatient (RCR) | payer BC, MEDICARE, SELFPAY ==
[2020-02-12 00:18] VITALS: BP 96/70; PULSE 94; RESP 16; TEMP 36.2
[2020-03-05 09:58] VITALS: BP 123/71; PULSE 89; RESP 16; TEMP 36; BMI 22.2
--- NOTE | 2020-03-05 13:06 | PCM.WC.PN ---
(1) Right ischial pressure sore, stage 4 Status: Chronic Code(s): L89.314 - Pressure ulcer of right buttock, stage 4 (2) Paraplegia Status: Chronic Code(s): G82.20 - Paraplegia, unspecified (3) History of osteomyelitis Status: Chronic Code(s): Z87.39 - Personal history of other diseases of the musculoskeletal system and connective tissue Type of Wound Date of Service: 03/05/20 Chief Complaint: Right ischial pressure sore, Stage IV. History of Wound: Surgery 03/02/19 - Excision right ischial pressure sore, Stage IV, with partial ostectomy for osteomyelitis. Wound care - Dakin's. Operative cultures - MRSA, Enterococcus faecalis, Morganella morganii, and Anaerobic cocci in the soft tissue and MRSA, Streptococcus anginosus, Morganella morganii, and Anaerobic cocci in the bone. He was started on IV Vancomycin, and Levaquin, and Flagyl. He has finished them. Another wound culture was done on 06/20/19. It showed MRSA, Klebsiella oxytoca, Corynebacterium striatum, and Streptococcus mitis/oralis. He was placed on Clindamycin and Bactrim and has finished them. He wasn't feeling well and a wound culture was done on 08/15/19. It showed MRSA, Streptococcus mitis/oralis, Corynebacterium striatum, Corynebacterium minutissimum, and Anaerobic cocci. Urine culture on 08/15/19 showed Enterococcus faecalis and Staphylococcus epidermidis. He was placed on Doxycycline, Cleocin, Flagyl, and Macrodantin. Pathology - positive for osteomyelitis. Prealbumin from 03/14/19 was 19.3. Encourage nutritional supplementation with protein to help the healing process. Today he denies fever. His appetite is ok. He does get upset stomach with antibiotics. Progress of Wound: Wound is stable. - Physical Exam Vital Signs Temp Pulse Resp BP 96.8 F L 89 16 123/71 H 03/05/20 09:58 03/05/20 09:58 03/05/20 09:58 03/05/20 09:58 General: Alert, Oriented x3, Cooperative HEENT: Atraumatic Oral: Moist Mucosa Lungs: Normal air movement Cardiovascular: Regular rate Extremities: Capillary Refill Less than 3 Seconds Skin: Ulcer/ Wound - Right ischial ulcer is beefy pink. Periwound is clean with no excoriation. There was a bone chip that came out when palpating the wound before debridement. Wound Measurements and Assessment WC - Nurse 1 - General Ulcer Measurement Start: 03/05/20 09:58 Freq: Status: Active Protocol: Activity Type Activity Date Activity User E-Sign Co-Sign Detail Recorded Client Recorded Date Recorded By Document 03/05/20 09:58 [facility] [id number] 03/05/20 10:05 [facility] 03/05/20 09:58 Wound Center Nurse 1 [Ulcer Assessment] #2 right ischium post op -Combined with other wound No -Current Size (cm) - Length 5.5 -Current Size (cm) - Width 4 -Current Size (cm) - Depth 1.7 -Total Square Cm 22.0 -Photo Taken No -Epithelialization None Present -Tunneling No -Undermining/Tunneling Yes -Undermining/Tunneling Starts (O' 9 clock) -Undermining/Tunneling Ends (O'clock) 2 -Maximum Distance (cm) 2 -Circular Undermining No -Exudate Amt Large -Exudate Type Sanguineous -Wound Margin Thickened & Rolled Under -Granulation Amt Large (67-100%) -Granulation Quality Red -Slough/Fibrin Yes -Necrosis Amt Small (1-33%) -Necrotic Tissue Type Adherent Slough -Texture (Elizabeth-wound Skin Appearance) Assessed, Scarring -Moisture (Elizabeth-wound Skin Appearance Assessed ) -Color (Elizabeth-wound Skin Appearance) Assessed -Temperature (Elizabeth-wound Skin No Abnormality Appearance) (Pt Warm) -Tenderness on Palpation (Elizabeth-wound No Skin Appearance) -Ulcer Cleansing Rinsed/ Irrigated with Saline -Foul Odor after Cleansing No -Anesthetic Used 4% Lidocaine Solution WC - Nurse 2 - General Ulcer CM Notes Start: 03/05/20 09:58 Freq: Status: Active Protocol: Activity Type Activity Date Activity User E-Sign Co-Sign Detail Recorded Client Recorded Date Recorded By Document 03/05/20 10:29 [id number] 03/05/20 10:33 03/05/20 10:29 Wound Center Nurse 2 [Procedure/Treatment] -Time 10:29 -Correct Patient Yes -Correct Side, Site, Position Yes -Correct Procedure Yes -Procedure Performed Yes -Type of Procedure Debridement -Clinical Debridement Muscle / Fascia -Tissue Removed Muscle -Post Debridement (cm) - Length 5.4 -Post Debridement (cm) - Width 3.2 -Post Debridement (cm) - Depth 1.4 -Total Square (Post) (cm) 17.28 -Area of Debridement (cm) - Length 5.4 -Area of Debridement (cm) - Width 3.2 -Total Square (Area) (cm) 17.28 -Tunneling Yes -Tunneling Position (O'clock) 10 -Tunneling Distance (cm) 2.0 -Tunneling Position #2 (O'clock) 5 -Tunneling Distance #2 (cm) 3.0 -Undermining/Tunneling No -Circular Undermining No -Wound/Ulcer Outcome Not Healed -Ulcer Cleansing Rinsed/ Irrigated with Saline -Foul Odor after Cleansing No -Bioengineered Tissue No -Bleeding Controlled with Pressure -Offloading No -Treatment Response Procedure Tolerated Well -Debridement - Muscle / Fascia, 1st Yes 20sq cm [See Physician Procedure note for Specifics] Pain Scale: 0-10 Numeric [Pain] -Is Patient Pain Free? Yes - Nurse 3 - General Ulcer D/C NN Start: 03/05/20 09:58 Freq: Status: Active Protocol: Activity Type Activity Date Activity User E-Sign Co-Sign Detail Recorded Client Recorded Date Recorded By Document 03/05/20 10:41 [facility] [id number] 03/05/20 10:43 [facility] 03/05/20 10:41 Wound Care Nurse 3 [Wound Dressing] #2 right ischium post op -Ulcer Cleansing Rinsed/ Irrigated with Saline -Foul Odor after Cleansing No -Primary Dressing Covered/Secured Secured with with Tape,Other -Other Covering ABD did pack prior to dressing Pain Scale: 0-10 Numeric [Pain] -Is Patient Pain Free? Yes - Visit Discharge [Visit Discharge Information] -Discharge Condition Stable -Ambulatory Status Walker -Transportation Private Auto -Accompanied by family member Musculoskeletal: No Tenderness to Palpation of Joints or Extremities Neurological: Cranial nerves II-XII grossly intact Psych/Mental Status: Normal Affect, Appropriate Debridement Note Post-Debridement Measurements/Treatment SHAKA - Nurse 2 - General Ulcer CM Notes Start: 03/05/20 09:58 Freq: Status: Active Protocol: Activity Type Activity Date Activity User E-Sign Co-Sign Detail Recorded Client Recorded Date Recorded By Document 03/05/20 10:29 [facility] [id number] 03/05/20 10:33 [facility]ANE 03/05/20 10:29 Wound Center Nurse 2 #2 right ischium post op -Time 10:29 -Correct Patient Yes -Correct Side, Site, Position Yes -Correct Procedure Yes -Procedure Performed Yes -Type of Procedure Debridement -Clinical Debridement Muscle / Fascia -Tissue Removed Muscle -Post Debridement (cm) - Length 5.4 -Post Debridement (cm) - Width 3.2 -Post Debridement (cm) - Depth 1.4 -Total Square (Post) (cm) 17.28 -Area of Debridement (cm) - Length 5.4 -Area of Debridement (cm) - Width 3.2 -Total Square (Area) (cm) 17.28 -Tunneling Yes -Tunneling Position (O'clock) 10 -Tunneling Distance (cm) 2.0 -Tunneling Position #2 (O'clock) 5 -Tunneling Distance #2 (cm) 3.0 -Undermining/Tunneling No -Circular Undermining No -Wound/Ulcer Outcome Not Healed -Ulcer Cleansing Rinsed/ Irrigated with Saline -Foul Odor after Cleansing No -Bioengineered Tissue No -Bleeding Controlled with Pressure -Offloading No -Treatment Response Procedure Tolerated Well -Debridement - Muscle / Fascia, 1st Yes 20sq cm Pain Scale: 0-10 Numeric Is Patient Pain Free? Yes - Nurse 3 - General Ulcer D/C NN Start: 03/05/20 09:58 Freq: Status: Active Protocol: Activity Type Activity Date Activity User E-Sign Co-Sign Detail Recorded Client Recorded Date Recorded By Document 03/05/20 10:41 ARMANI [id number] 03/05/20 10:43 ARMANI 03/05/20 10:41 Wound Care Nurse 3 #2 right ischium post op -Ulcer Cleansing Rinsed/ Irrigated with Saline -Foul Odor after Cleansing No -Primary Dressing Covered/Secured with Secured with Tape,Other -Other Covering ABD did pack prior to dressing Pain Scale: 0-10 Numeric Is Patient Pain Free? Yes - Visit Discharge Discharge Condition Stable Ambulatory Status Walker Transportation Private Auto Accompanied by family member Wound debrided: ischial ulcer Laterality: Right Type of Debridement: Excisional debridement Anesthesia Used: 5% Lidocaine Gel Depth: Down to and including healthy tissue, in the subcutaneous layer, to muscle Percentage of wound debrided: 100 Instrument Used: 5mm curette Tissue Removed: Subcutaneous tissue and slough into the muscle Severity: Fat Layer Exposed Amount of bleeding with debridement: Mild Bleeding Controlled with: Pressure Patient tolerated procedure well Assessment/Plan Assessment: 1. Right ischial pressure sore, stage IV. 2. Paraplegia. 3. Chronic refractory osteomyelitis. 4. MRSA. 5. s/p excision right ischial pressure sore, Stage IV, with partial ostectomy for osteomyelitis. Plan: Continue Dakin's moistened gauze dressing changes. He has finished the Doxycycline, Cleocin, Flagyl, and Macrodantin for wound culture on 08/15/19 that showed MRSA, Streptococcus mitis/oralis, Corynebacterium striatum, and Corynebacterium minutissimum, and Anaerobic cocci and for the urine culture that showed Enterococcus faecalis and Staphylococcus epidermidis. His soft tissue operative culture showed MRSA, Enterococcus faecalis, Morganella morganii, and Anaerobic cocci. His bone operative culture showed MRSA, Streptococcus anginosus, Morganella morganii, and Anaerobic cocci. He was placed on Vancomycin and Levaquin and Flagyl and has finished them. A wound culture was done on 06/20/19. It showed MRSA, Klebsiella oxytoca, Corynebacterium striatum, and Streptococcus mitis/oralis. He was placed on Clindamycin and Bactrim and has finished them. His Pathology was positive for osteomyelitis. With the recent diagnosis of osteomyelitis, he would be a candidate for HBO. He will think about it and let us know. A CT Pelvis was done on 11/07/17. It was suspicious for osteomyelitis. A repeat CT Pelvis was done on 05/17/18. Once again osteomyelitis is suspected and cannot be ruled out. Prealbumin from 03/14/19 was 19.3. Encourage nutritional supplementation with protein to help the healing process. He is still deciding about a muscle flap at some point in the future. Once again it was discussed with him and his family that the pressure sore in this area rarely heals without a muscle flap especially a Stage IV pressure sore involving the bone. Follow-up for reassessment in 4 weeks. Follow-up sooner should new or concerning symptoms arise. 111xxx-113xx: [id number] Mirella musc/fascia 20 sq cm/<
== END 2020-03-12 23:59 ==
LOC: WC 10:00
PROVIDERS: Family Provider Preventive Medicine Occupational Medicine; PCP Preventive Medicine Occupational Medicine; Referring Provider Nurse Practitioner Family; Visit Provider Nurse Practitioner Family
DX: L89.314 Pressure ulcer of right buttock, stage 4 (principal); M86.651 Other chronic osteomyelitis, right thigh; B95.62 Methicillin resistant Staphylococcus aureus infection as the cause of diseases classified elsewhere; G82.20 Paraplegia, unspecified; Z87.39 Personal history of other diseases of the musculoskeletal system and connective tissue
CPT/HCPCS: 11043

== ENCOUNTER 2020-04-16 10:00 | Outpatient (RCR) | payer BC, MEDICARE, SELFPAY ==
[2020-03-13 00:19] VITALS: BP 123/71; PULSE 89; RESP 16; TEMP 36
[2020-04-16 10:12] VITALS: BP 122/83; PULSE 104; TEMP 36.4; BMI 22.2
--- NOTE | 2020-04-16 11:46 | PN.PCM_ITS ---
(1) Right ischial pressure sore, stage 4 Status: Chronic Code(s): L89.314 - Pressure ulcer of right buttock, stage 4 (2) History of osteomyelitis Status: Chronic Code(s): Z87.39 - Personal history of other diseases of the musculoskeletal system and connective tissue (3) Paraplegic immobility syndrome Status: Chronic Code(s): M62.3 - Immobility syndrome (paraplegic) Type of Wound Date of Service: 04/16/20 Chief Complaint: Right ischial pressure sore, Stage IV. History of Wound: Surgery 03/02/19 - Excision right ischial pressure sore, Stage IV, with partial ostectomy for osteomyelitis. Wound care - Dakin's. Operative cultures - MRSA, Enterococcus faecalis, Morganella morganii, and Anaerobic cocci in the soft tissue and MRSA, Streptococcus anginosus, Morganella morganii, and Anaerobic cocci in the bone. He was started on IV Vancomycin, and Levaquin, and Flagyl. He has finished them. Another wound culture was done on 06/20/19. It showed MRSA, Klebsiella oxytoca, Corynebacterium striatum, and Streptococcus mitis/oralis. He was placed on Clindamycin and Bactrim and has fi nished them. He wasn't feeling well and a wound culture was done on 08/15/19. It showed MRSA, Streptococcus mitis/oralis, Corynebacterium striatum, Corynebacterium minutissimum, and Anaerobic cocci. Urine culture on 08/15/19 showed Enterococcus faecalis and Staphylococcus epidermidis. He was placed on Doxycycline, Cleocin, Flagyl, and Macrodantin. Pathology - positive for osteomyelitis. Prealbumin from 03/14/19 was 19.3. Encourage nutritional supplementation with protein to help the healing process. Today he denies fever. His appetite is ok. Progress of Wound: Mild improvement in size of ulcer. - Physical Exam Vital Signs Temp Pulse Resp BP 97.5 F L 104 H 16 122/83 H 04/16/20 10:12 04/16/20 10:12 03/13/20 00:19 04/16/20 10:12 General: Alert, Oriented x3, Cooperative HEENT: Atraumatic Oral: Moist Mucosa Lungs: Normal air movement Cardiovascular: Regular rate Extremities: Capillary Refill Less than 3 Seconds Skin: Ulcer/ Wound - Right ischial ulcer is beefy pink. Periwound is intact with no redness. Wound Measurements and Assessment - Nurse 1 - General Ulcer Measurement Start: 04/16/20 10:12 Freq: Status: Active Protocol: Activity Type Activity Date Activity User E-Sign Co-Sign Detail Recorded Client Recorded Date Recorded By Document 04/16/20 10:12 ARMANI [id number] 04/16/20 10:20 ARMANI 04/16/20 10:12 Wound Center Nurse 1 [Ulcer Assessment] #2 right ischium post op -Current Size (cm) - Length 6 -Current Size (cm) - Width 4.2 -Current Size (cm) - Depth 1.1 -Total Square Cm 25.2 -Undermining/Tunneling Starts (O' 8 clock) -Undermining/Tunneling Ends (O'clock) 2 -Maximum Distance (cm) 2.5 -Exudate Amt Medium -Exudate Type Serosanguineous -Wound Margin Distinct, Outline Attached -Granulation Amt Large (67-100%) -Granulation Quality Red -Necrosis Amt Small (1-33%) -Necrotic Tissue Type Adherent Slough -Texture (Elizabeth-wound Skin Appearance) Assessed, Scarring -Moisture (Elizabeth-wound Skin Appearance No Abnormality, ) Assessed -Color (Elizabeth-wound Skin Appearance) No Abnormality, Assessed -Temperature (Elizabeth-wound Skin No Abnormality Appearance) (Pt Warm) -Tenderness on Palpation (Elizabeth-wound No Skin Appearance) -Ulcer Cleansing Rinsed/ Irrigated with Saline -Foul Odor after Cleansing No -Anesthetic Used 4% Lidocaine Solution - Nurse 2 - General Ulcer CM Notes Start: 04/16/20 10:12 Freq: Status: Active Protocol: Activity Type Activity Date Activity User E-Sign Co-Sign Detail Recorded Client Recorded Date Recorded By Document 04/16/20 10:38 LESLIE [id number] 04/16/20 10:45 LESLIE 04/16/20 10:38 Wound Center Nurse 2 [Procedure/Treatment] -Time 10:39 -Correct Patient Yes -Correct Side, Site, Position Yes -Correct Procedure Yes -Procedure Performed Yes -Type of Procedure Debridement -Clinical Debridement Muscle / Fascia -Tissue Removed Muscle -Post Debridement (cm) - Length 5 -Post Debridement (cm) - Width 3.5 -Post Debridement (cm) - Depth 1.0 -Total Square (Post) (cm) 17.5 -Area of Debridement (cm) - Length 5 -Area of Debridement (cm) - Width 3.5 -Total Square (Area) (cm) 17.5 -Tunneling No -Undermining/Tunneling No -Circular Undermining No -Wound/Ulcer Outcome Not Healed -Ulcer Cleansing Rinsed/ Irrigated with Saline -Foul Odor after Cleansing No -Bioengineered Tissue No -Debridement - Muscle / Fascia, 1st Yes 20sq cm [See Physician Procedure note for Specifics] Pain Scale: 0-10 Numeric [Pain] -Is Patient Pain Free? Yes - Nurse 3 - General Ulcer D/C NN Start: 04/16/20 10:12 Freq: Status: Active Protocol: Activity Type Activity Date Activity User E-Sign Co-Sign Detail Recorded Client Recorded Date Recorded By Document 04/16/20 10:50 KR [id number] 04/16/20 10:50 ARMANI 04/16/20 10:50 Wound Care Nurse 3 [Wound Dressing] #2 right ischium post op -Ulcer Cleansing Rinsed/ Irrigated with Saline -Foul Odor after Cleansing No -Other Dressing wet to dry Pain Scale: 0-10 Numeric [Pain] -Is Patient Pain Free? Yes - Visit Discharge [Visit Discharge Information] -Discharge Condition Stable -Ambulatory Status Wheelchair -Transportation Private Auto Musculoskeletal: No Tenderness to Palpation of Joints or Extremities Neurological: Cranial nerves II-XII grossly intact Psych/Mental Status: Normal Affect, Appropriate Debridement Note Post-Debridement Measurements/Treatment WC - Nurse 2 - General Ulcer CM Notes Start: 04/16/20 10:12 Freq: Status: Active Protocol: Activity Type Activity Date Activity User E-Sign Co-Sign Detail Recorded Client Recorded Date Recorded By Document 04/16/20 10:38 PL [id number] 04/16/20 10:45 PL 04/16/20 10:38 Wound Center Nurse 2 #2 right ischium post op -Time 10:39 -Correct Patient Yes -Correct Side, Site, Position Yes -Correct Procedure Yes -Procedure Performed Yes -Type of Procedure Debridement -Clinical Debridement Muscle / Fascia -Tissue Removed Muscle -Post Debridement (cm) - Length 5 -Post Debridement (cm) - Width 3.5 -Post Debridement (cm) - Depth 1.0 -Total Square (Post) (cm) 17.5 -Area of Debridement (cm) - Length 5 -Area of Debridement (cm) - Width 3.5 -Total Square (Area) (cm) 17.5 -Tunneling No -Undermining/Tunneling No -Circular Undermining No -Wound/Ulcer Outcome Not Healed -Ulcer Cleansing Rinsed/ Irrigated with Saline -Foul Odor after Cleansing No -Bioengineered Tissue No -Debridement - Muscle / Fascia, 1st Yes 20sq cm Pain Scale: 0-10 Numeric Is Patient Pain Free? Yes WC - Nurse 3 - General Ulcer D/C NN Start: 04/16/20 10:12 Freq: Status: Active Protocol: Activity Type Activity Date Activity User E-Sign Co-Sign Detail Recorded Client Recorded Date Recorded By Document 04/16/20 10:50 ARMANI [id number] 04/16/20 10:50 ARMANI 04/16/20 10:50 Wound Care Nurse 3 #2 right ischium post op -Ulcer Cleansing Rinsed/ Irrigated with Saline -Foul Odor after Cleansing No -Other Dressing wet to dry Pain Scale: 0-10 Numeric Is Patient Pain Free? Yes - Visit Discharge Discharge Condition Stable Ambulatory Status Wheelchair Transportation Private Auto Wound debrided: ischial ulcer. Laterality: Right Type of Debridement: Excisional debridement Anesthesia Used: 4% Lidocaine Solution Depth: Down to and including healthy tissue, in the subcutaneous layer, to muscle Percentage of wound debrided: 100 Instrument Used: 7mm curette Tissue Removed: Subcutaneous tissue and slough Severity: Fat Layer Exposed Amount of bleeding with debridement: Mild Bleeding Controlled with: Pressure Patient tolerated procedure well Assessment/Plan Active Problems Right ischial pressure sore, stage 4 (Chronic) History of osteomyelitis (Chronic) Paraplegic immobility syndrome (Chronic) Assessment: 1. Right ischial pressure sore, stage IV. 2. Paraplegia. 3. Chronic refractory osteomyelitis. 4. MRSA. 5. s/p excision right ischial pressure sore, Stage IV, with partial ostectomy for osteomyelitis. Plan: Continue Dakin's moistened gauze dressing changes. He has finished the Doxycycline, Cleocin, Flagyl, and Macrodantin for wound culture on 08/15/19 that showed MRSA, Streptococcus mitis/oralis, Corynebacterium striatum, and Corynebacterium minutissimum, and Anaerobic cocci and for the urine culture that showed Enterococcus faecalis and Staphylococcus epidermidis. His soft tissue operative culture showed MRSA, Enterococcus faecalis, Morganella morganii, and Anaerobic cocci. His bone operative culture showed MRSA, Streptococcus anginosus, Morganella morganii, and Anaerobic cocci. He was placed on Vancomycin and Levaquin and Flagyl and has finished them. A wound culture was done on 06/20/19. It showed MRSA, Klebsiella oxytoca, Corynebacterium striatum, and Streptococcus mitis/oralis. He was placed on Clindamycin and Bactrim and has finished them. His Pathology was positive for osteomyelitis. With the recent diagnosis of osteomyelitis, he would be a candidate for HBO. He will think about it and let us know. A CT Pelvis was done on 11/07/17. It was suspicious for osteomyelitis. A repeat CT Pelvis was done on 05/17/18. Once again osteomyelitis is suspected and cannot be ruled out. Prealbumin from 03/14/19 was 19.3. Encourage nutritional supplementation with protein to help the healing process. He is still deciding about a muscle flap at some point in the future. Once again it was discussed with him and his family that the pressure sore in this area rarely heals without a muscle flap especially a Stage IV pressure sore involving the bone. Follow-up for reassessment in 4 weeks. Follow-up sooner should new or concerning symptoms arise. [id number]: [id number] Mirella musc/fascia 20 sq cm/<
== END 2020-05-13 23:59 ==
LOC: WC 10:00
PROVIDERS: Family Provider Preventive Medicine Occupational Medicine; PCP Preventive Medicine Occupational Medicine; Referring Provider Nurse Practitioner Family; Visit Provider Nurse Practitioner Family
DX: L89.314 Pressure ulcer of right buttock, stage 4 (principal); G82.20 Paraplegia, unspecified; M62.3 Immobility syndrome (paraplegic); Z79.899 Other long term (current) drug therapy; Z86.14 Personal history of Methicillin resistant Staphylococcus aureus infection; Z87.39 Personal history of other diseases of the musculoskeletal system and connective tissue
CPT/HCPCS: 11043

== ENCOUNTER → 2020-06-06 | Outpatient (CLI) | payer BC, MEDICARE, SELFPAY | END | disposition home or self-care (01) | LOC: LABSPEC 11:26 | PROVIDERS: PCP Preventive Medicine Occupational Medicine; Referring Provider Nurse Practitioner Adult Health; Visit Provider Nurse Practitioner Adult Health | DX: N39.0 Urinary tract infection, site not specified (principal) | CPT/HCPCS: 87077; 87086; 87088; 87186 ==

== ENCOUNTER 2020-06-29 11:21 | Outpatient (RCR) | payer BC, MEDICARE, SELFPAY ==
[2020-06-11 10:49] VITALS: BMI 22.2
[2020-06-29] MEDS: COVID-19 VACC, MRNA(PFIZER)/PF 30 MCG/0.3 ML SYRINGE IM (12:31)
[2020-07-20] MEDS: COVID-19 VACC, MRNA(PFIZER)/PF 30 MCG/0.3 ML SYRINGE IM (12:14)
== END 2020-06-29 23:59 ==
LOC: IMMUN 11:21
PROVIDERS: PCP Preventive Medicine Occupational Medicine; Visit Provider Family Medicine
DX: Z23 Encounter for immunization (principal)
CPT/HCPCS: 0001A; 0002A; 91300

== ENCOUNTER 2020-07-09 10:45 | Outpatient (RCR) | payer BC, MEDICARE, SELFPAY ==
[2020-05-14 00:09] VITALS: BP 122/83; PULSE 104; RESP 16; TEMP 36.4
[2020-06-11 10:49] VITALS: BP 85/64; PULSE 83; RESP 18; TEMP 36.7; BMI 22.2
--- NOTE | 2020-06-11 12:38 | PCM.WC.PN ---
(1) Right ischial pressure sore, stage 4 Status: Chronic Code(s): L89.314 - Pressure ulcer of right buttock, stage 4 (2) Osteomyelitis of right side of pelvis Status: Chronic Code(s): M86.9 - Osteomyelitis, unspecified (3) Paraplegia Status: Chronic Code(s): G82.20 - Paraplegia, unspecified Type of Wound Date of Service: 06/11/20 Chief Complaint: Right ischial pressure sore, Stage IV. History of Wound: Surgery 03/02/19 - Excision right ischial pressure sore, Stage IV, with partial ostectomy for osteomyelitis. Wound care - Dakin's covered with abdominal pad or super absorbant. Operative cultures - MRSA, Enterococcus faecalis, Morganella morganii, and Anaerobic cocci in the soft tissue and MRSA, Streptococcus anginosus, Morganella morganii, and Anaerobic cocci in the bone. He was started on IV Vancomycin, and Levaquin, and Flagyl. He has finished them. Another wound culture was done on 06/20/19. It showed MRSA, Klebsiella oxytoca, Corynebacterium striatum, and Streptococcus mitis/oralis. He was placed on Clindamycin and Bactrim and has finished them. He wasn't feeling well and a wound culture was done on 08/15/19. It showed MRSA, Streptococcus mitis/oralis, Corynebacterium striatum, Corynebacterium minutissimum, and Anaerobic cocci. Urine culture on 08/15/19 showed Enterococcus faecalis and Staphylococcus epidermidis. He was placed on Doxycycline, Cleocin, Flagyl, and Macrodantin. Pathology - positive for osteomyelitis. Prealbumin from 03/14/19 was 19.3. Encourage nutritional supplementation with protein to help the healing process. Today he denies fever. His appetite is ok. Progress of Wound: Ulcer is stable. - Physical Exam Vital Signs Temp Pulse Resp BP 98.1 F 83 18 85/64 L 06/11/20 10:49 06/11/20 10:49 06/11/20 10:49 06/11/20 10:49 General: Alert, Oriented x3, Cooperative HEENT: Atraumatic Oral: Moist Mucosa Lungs: Normal air movement Cardiovascular: Regular rate Extremities: Capillary Refill Less than 3 Seconds Skin: Ulcer/ Wound - Right ischial ulcer is beefy pink, it is stable. Wound Measurements and Assessment WC - Nurse 1 - General Ulcer Measurement Start: 06/11/20 10:46 Freq: Status: Active Protocol: Activity Type Activity Date Activity User E-Sign Co-Sign Detail Recorded Client Recorded Date Recorded By Document 06/11/20 10:49 MS [id number] 06/11/20 10:59 MS 06/11/20 10:49 Wound Center Nurse 1 [Ulcer Assessment] #2 right ischium post op -Current Size (cm) - Length 5 -Current Size (cm) - Width 5.3 -Current Size (cm) - Depth 0.8 -Total Square Cm 26.5 -Photo Taken Yes -Undermining/Tunneling Starts (O' 7 clock) -Undermining/Tunneling Ends (O'clock) 1 -Maximum Distance (cm) 2.3 -Exudate Amt Medium -Exudate Type Serosanguineous -Wound Margin Thickened & Rolled Under -Granulation Amt Large (67-100%) -Granulation Quality Red -Necrosis Amt Small (1-33%) -Necrotic Tissue Type Adherent Slough -Structure Exposed N/A -Texture (Elizabeth-wound Skin Appearance) Scarring -Moisture (Elizabeth-wound Skin Appearance No Abnormality ) -Color (Elizabeth-wound Skin Appearance) No Abnormality -Temperature (Elizabeth-wound Skin No Abnormality Appearance) (Pt Warm) -Tenderness on Palpation (Elizabeth-wound No Skin Appearance) -Ulcer Cleansing Wound Cleanser -Foul Odor after Cleansing No -Anesthetic Used 4% Lidocaine Solution - Nurse 2 - General Ulcer CM Notes Start: 06/11/20 10:46 Freq: Status: Active Protocol: Activity Type Activity Date Activity User E-Sign Co-Sign Detail Recorded Client Recorded Date Recorded By Document 06/11/20 11:25 [id number] 06/11/20 11:28 06/11/20 11:25 Wound Center Nurse 2 [Procedure/Treatment] -Time 11:25 -Correct Patient Yes -Correct Side, Site, Position Yes -Correct Procedure Yes -Procedure Performed Yes -Type of Procedure Debridement -Clinical Debridement Muscle / Fascia -Tissue Removed Muscle,Fascia -Post Debridement (cm) - Length 6 -Post Debridement (cm) - Width 4.7 -Post Debridement (cm) - Depth 0.9 -Total Square (Post) (cm) 28.2 -Area of Debridement (cm) - Length 6 -Area of Debridement (cm) - Width 4.7 -Total Square (Area) (cm) 28.2 -Tunneling Yes -Undermining/Tunneling Yes -Undermining/Tunneling Starts (O' 10 clock) -Undermining/Tunneling Ends (O'clock) 12 -Maximum Distance (cm) 2.5 -Circular Undermining No -Wound/Ulcer Outcome Not Healed -Ulcer Cleansing Rinsed/ Irrigated with Saline -Foul Odor after Cleansing No -Bioengineered Tissue No -Bleeding Controlled with Pressure -Offloading No -Treatment Response Procedure Tolerated Well -Debridement - Muscle / Fascia, 1st Yes 20sq cm -Debridement, Muscle/Fascia, ea addt' 1 l 20sq cm or part thereof [See Physician Procedure note for Specifics] Pain Scale: 0-10 Numeric [Pain] -Is Patient Pain Free? Yes - Nurse 3 - General Ulcer D/C NN Start: 06/11/20 10:46 Freq: Status: Active Protocol: Activity Type Activity Date Activity User E-Sign Co-Sign Detail Recorded Client Recorded Date Recorded By Document 06/11/20 11:39 DL [id number] 06/11/20 11:40 DL 06/11/20 11:39 Wound Care Nurse 3 [Wound Dressing] #2 right ischium post op -Ulcer Cleansing Rinsed/ Irrigated with Saline -Foul Odor after Cleansing No -Primary Dressing Applied Other -Other Dressing moist to dry per [Post Procedure Tolerated] -Treatment Response Procedure Tolerated Well Pain Scale: 0-10 Numeric [Pain] -Is Patient Pain Free? Yes - Visit Discharge [Visit Discharge Information] -Discharge Condition Stable -Ambulatory Status Wheelchair -Transportation transport -Accompanied by Musculoskeletal: No Tenderness to Palpation of Joints or Extremities Neurological: Cranial nerves II-XII grossly intact Psych/Mental Status: Normal Affect, Appropriate Debridement Note Post-Debridement Measurements/Treatment - Nurse 2 - General Ulcer CM Notes Start: 06/11/20 10:46 Freq: Status: Active Protocol: Activity Type Activity Date Activity User E-Sign Co-Sign Detail Recorded Client Recorded Date Recorded By Document 06/11/20 11:25 LIANE [id number] 06/11/20 11:28 LIANE 06/11/20 11:25 Wound Center Nurse 2 #2 right ischium post op -Time 11:25 -Correct Patient Yes -Correct Side, Site, Position Yes -Correct Procedure Yes -Procedure Performed Yes -Type of Procedure Debridement -Clinical Debridement Muscle / Fascia -Tissue Removed Muscle,Fascia -Post Debridement (cm) - Length 6 -Post Debridement (cm) - Width 4.7 -Post Debridement (cm) - Depth 0.9 -Total Square (Post) (cm) 28.2 -Area of Debridement (cm) - Length 6 -Area of Debridement (cm) - Width 4.7 -Total Square (Area) (cm) 28.2 -Tunneling Yes -Undermining/Tunneling Yes -Undermining/Tunneling Starts (O'clock 10 ) -Undermining/Tunneling Ends (O'clock) 12 -Maximum Distance (cm) 2.5 -Circular Undermining No -Wound/Ulcer Outcome Not Healed -Ulcer Cleansing Rinsed/ Irrigated with Saline -Foul Odor after Cleansing No -Bioengineered Tissue No -Bleeding Controlled with Pressure -Offloading No -Treatment Response Procedure Tolerated Well -Debridement - Muscle / Fascia, 1st Yes 20sq cm -Debridement, Muscle/Fascia, ea addt'l 1 20sq cm or part thereof Pain Scale: 0-10 Numeric Is Patient Pain Free? Yes - Nurse 3 - General Ulcer D/C NN Start: 06/11/20 10:46 Freq: Status: Active Protocol: Activity Type Activity Date Activity User E-Sign Co-Sign Detail Recorded Client Recorded Date Recorded By Document 06/11/20 11:39 DL [id number] 06/11/20 11:40 DL 06/11/20 11:39 Wound Care Nurse 3 #2 right ischium post op -Ulcer Cleansing Rinsed/ Irrigated with Saline -Foul Odor after Cleansing No -Primary Dressing Applied Other -Other Dressing moist to dry per Treatment Response Procedure Tolerated Well Pain Scale: 0-10 Numeric Is Patient Pain Free? Yes WC - Visit Discharge Discharge Condition Stable Ambulatory Status Wheelchair Transportation transport Accompanied by Wound debrided: Ischial ulcer Laterality: Right Type of Debridement: Excisional debridement Anesthesia Used: 5% Lidocaine Gel Depth: Down to and including healthy tissue, in the subcutaneous layer, to muscle Percentage of wound debrided: 100 Instrument Used: 5mm curette Tissue Removed: Subcutaneous tissue and slough into the muscle Severity: Fat Layer Exposed Amount of bleeding with debridement: Mild Bleeding Controlled with: Pressure Patient tolerated procedure well Assessment/Plan Assessment: 1. Right ischial pressure sore, stage IV. 2. Paraplegia. 3. Chronic refractory osteomyelitis. 4. MRSA. 5. s/p excision right ischial pressure sore, Stage IV, with partial ostectomy for osteomyelitis. Plan: Continue Dakin's moistened gauze dressing changes covered by ABD pad or super absorbent pad daily and as needed. He has finished the Doxycycline, Cleocin, Flagyl, and Macrodantin for wound culture on 08/15/19 that showed MRSA, Streptococcus mitis/oralis, Corynebacterium striatum, and Corynebacterium minutissimum, and Anaerobic cocci and for the urine culture that showed Enterococcus faecalis and Staphylococcus epidermidis. His soft tissue operative culture showed MRSA, Enterococcus faecalis, Morganella morganii, and Anaerobic cocci. His bone operative culture showed MRSA, Streptococcus anginosus, Morganella morganii, and Anaerobic cocci. He was placed on Vancomycin and Levaquin and Flagyl and has finished them. A wound culture was done on 06/20/19. It showed MRSA, Klebsiella oxytoca, Corynebacterium striatum, and Streptococcus mitis/oralis. He was placed on Clindamycin and Bactrim and has finished them. His Pathology was positive for osteomyelitis. With the recent diagnosis of osteomyelitis, he would be a candidate for HBO. He will think about it and let us know. A CT Pelvis was done on 11/07/17. It was suspicious for osteomyelitis. A repeat CT Pelvis was done on 05/17/18. Once again osteomyelitis is suspected and cannot be ruled out. Prealbumin from 03/14/19 was 19.3. Encourage nutritional supplementation with protein to help the healing process. He is still deciding about a muscle flap at some point in the future. Once again it was discussed with him and his family that the pressure sore in this area rarely heals without a muscle flap especially a Stage IV pressure sore involving the bone. Follow-up for reassessment in 4 weeks. Follow-up sooner should new or concerning symptoms arise. 111xxx-113xx: [id number] Mirella musc/fascia 20 sq cm/< Add On Codes: 08801 Mirella musc/fascia add-on
[2020-07-09 10:54] VITALS: BP 108/47; PULSE 94; RESP 16; TEMP 36.2; BMI 22.2
--- NOTE | 2020-07-09 11:29 | PCM.WC.PN ---
(1) Right ischial pressure sore, stage 4 Status: Chronic Code(s): L89.314 - Pressure ulcer of right buttock, stage 4 (2) Osteomyelitis of right side of pelvis Status: Chronic Code(s): M86.9 - Osteomyelitis, unspecified (3) Paraplegia Status: Chronic Code(s): G82.20 - Paraplegia, unspecified Type of Wound Date of Service: 07/09/20 Chief Complaint: Right ischial pressure sore, Stage IV. History of Wound: Surgery 03/02/19 - Excision right ischial pressure sore, Stage IV, with partial ostectomy for osteomyelitis. Wound care - Dakin's covered with abdominal pad or super absorbant. Operative cultures - MRSA, Enterococcus faecalis, Morganella morganii, and Anaerobic cocci in the soft tissue and MRSA, Streptococcus anginosus, Morganella morganii, and Anaerobic cocci in the bone. He was started on IV Vancomycin, and Levaquin, and Flagyl. He has finished them. Another wound culture was done on 06/20/19. It showed MRSA, Klebsiella oxytoca, Corynebacterium striatum, and Streptococcus mitis/oralis. He was placed on Clindamycin and Bactrim and has finished them. He wasn't feeling well and a wound culture was done on 08/15/19. It showed MRSA, Streptococcus mitis/oralis, Corynebacterium striatum, Corynebacterium minutissimum, and Anaerobic cocci. Urine culture on 08/15/19 showed Enterococcus faecalis and Staphylococcus epidermidis. He was placed on Doxycycline, Cleocin, Flagyl, and Macrodantin. Pathology - positive for osteomyelitis. Prealbumin from 03/14/19 was 19.3. Encourage nutritional supplementation with protein to help the healing process. Today he denies fever. His appetite is ok. Progress of Wound: Ulcer is stable. - Physical Exam Vital Signs Temp Pulse Resp BP 97.1 F L 94 16 108/47 L 07/09/20 10:54 07/09/20 10:54 07/09/20 10:54 07/09/20 10:54 General: Alert, Oriented x3, Cooperative HEENT: Atraumatic Oral: Moist Mucosa Lungs: Normal air movement Cardiovascular: Regular rate Extremities: No edema, Capillary Refill Less than 3 Seconds Skin: Ulcer/ Wound - Right ischial ulcer is stable. It is to the muscle, there is some bone exposure. There is also undermining from 10-2. Wound Measurements and Assessment WC - Nurse 1 - General Ulcer Measurement Start: 06/11/20 10:46 Freq: Status: Active Protocol: Activity Type Activity Date Activity User E-Sign Co-Sign Detail Recorded Client Recorded Date Recorded By Document 07/09/20 10:54 [facility] [id number] 07/09/20 11:05 [facility] 07/09/20 10:54 Wound Center Nurse 1 [Ulcer Assessment] #2 right ischium post op -Combined with other wound No -Current Size (cm) - Length 5.9 -Current Size (cm) - Width 3.5 -Current Size (cm) - Depth 1.2 -Total Square Cm 20.65 -Photo Taken No -Epithelialization None Present -Tunneling No -Undermining/Tunneling Yes -Undermining/Tunneling Starts (O' 2 clock) -Undermining/Tunneling Ends (O'clock) 3 -Maximum Distance (cm) 1.1 -Circular Undermining No -Exudate Amt Large -Exudate Type Serosanguineous -Wound Margin Thickened & Rolled Under -Granulation Amt Large (67-100%) -Granulation Quality Red -Slough/Fibrin Yes -Necrosis Amt Small (1-33%) -Necrotic Tissue Type Adherent Slough -Texture (Elizabeth-wound Skin Appearance) Assessed, Scarring -Moisture (Elizabeth-wound Skin Appearance Assessed ) -Color (Elizabeth-wound Skin Appearance) Assessed, Erythema -Temperature (Elizabeth-wound Skin No Abnormality Appearance) (Pt Warm) -Tenderness on Palpation (Elizabeth-wound No Skin Appearance) -Ulcer Cleansing Rinsed/ Irrigated with Saline -Foul Odor after Cleansing No -Anesthetic Used 4% Lidocaine Solution WC - Nurse 2 - General Ulcer CM Notes Start: 06/11/20 10:46 Freq: Status: Active Protocol: Activity Type Activity Date Activity User E-Sign Co-Sign Detail Recorded Client Recorded Date Recorded By Document 07/09/20 11:13 [facility]ANE [id number] 07/09/20 11:16 [facility] 07/09/20 11:13 Wound Center Nurse 2 [Procedure/Treatment] -Time 11:13 -Correct Patient Yes -Correct Side, Site, Position Yes -Correct Procedure Yes -Procedure Performed Yes -Type of Procedure Debridement -Clinical Debridement Muscle / Fascia -Tissue Removed Muscle,Fascia -Post Debridement (cm) - Length 6.5 -Post Debridement (cm) - Width 5 -Post Debridement (cm) - Depth 0.9 -Total Square (Post) (cm) 32.5 -Area of Debridement (cm) - Length 6.5 -Area of Debridement (cm) - Width 5 -Total Square (Area) (cm) 32.5 -Tunneling No -Undermining/Tunneling Yes -Undermining/Tunneling Starts (O' 11 clock) -Undermining/Tunneling Ends (O'clock) 4 -Maximum Distance (cm) 2 -Circular Undermining No -Wound/Ulcer Outcome Not Healed -Ulcer Cleansing Rinsed/ Irrigated with Saline -Foul Odor after Cleansing No -Bioengineered Tissue No -Bleeding Controlled with Pressure -Offloading No -Treatment Response Procedure Tolerated Well -Debridement - Muscle / Fascia, 1st Yes 20sq cm -Debridement, Muscle/Fascia, ea addt' 1 l 20sq cm or part thereof [See Physician Procedure note for Specifics] Pain Scale: 0-10 Numeric [Pain] -Is Patient Pain Free? Yes Musculoskeletal: No Tenderness to Palpation of Joints or Extremities Neurological: Cranial nerves II-XII grossly intact Psych/Mental Status: Normal Affect, Appropriate Debridement Note Post-Debridement Measurements/Treatment WC - Nurse 2 - General Ulcer CM Notes Start: 06/11/20 10:46 Freq: Status: Active Protocol: Activity Type Activity Date Activity User E-Sign Co-Sign Detail Recorded Client Recorded Date Recorded By Document 06/11/20 11:25 [id number] 06/11/20 11:28 Document 07/09/20 11:13 [id number] 07/09/20 11:16 06/11/20 07/09/20 11:25 11:13 Wound Center Nurse 2 #2 right ischium post op -Time 11:25 11:13 -Correct Patient Yes Yes -Correct Side, Site, Position Yes Yes -Correct Procedure Yes Yes -Procedure Performed Yes Yes -Type of Procedure Debridement Debridement -Clinical Debridement Muscle / Fascia Muscle / Fascia -Tissue Removed Muscle,Fascia Muscle,Fascia -Post Debridement (cm) - Length 6 6.5 -Post Debridement (cm) - Width 4.7 5 -Post Debridement (cm) - Depth 0.9 0.9 -Total Square (Post) (cm) 28.2 32.5 -Area of Debridement (cm) - Length 6 6.5 -Area of Debridement (cm) - Width 4.7 5 -Total Square (Area) (cm) 28.2 32.5 -Tunneling Yes No -Undermining/Tunneling Yes Yes -Undermining/Tunneling Starts (O'clock 10 11 ) -Undermining/Tunneling Ends (O'clock) 12 4 -Maximum Distance (cm) 2.5 2 -Circular Undermining No No -Wound/Ulcer Outcome Not Healed Not Healed -Ulcer Cleansing Rinsed/ Rinsed/ Irrigated with Irrigated with Saline Saline -Foul Odor after Cleansing No No -Bioengineered Tissue No No -Bleeding Controlled with Pressure Pressure -Offloading No No -Treatment Response Procedure Procedure Tolerated Well Tolerated Well -Debridement - Muscle / Fascia, 1st Yes Yes 20sq cm -Debridement, Muscle/Fascia, ea addt'l 1 1 20sq cm or part thereof Pain Scale: 0-10 Numeric Is Patient Pain Free? Yes Yes - Nurse 3 - General Ulcer D/C NN Start: 06/11/20 10:46 Freq: Status: Active Protocol: Activity Type Activity Date Activity User E-Sign Co-Sign Detail Recorded Client Recorded Date Recorded By Document 06/11/20 11:39 DL [id number] 06/11/20 11:40 DL 06/11/20 11:39 Wound Care Nurse 3 #2 right ischium post op -Ulcer Cleansing Rinsed/ Irrigated with Saline -Foul Odor after Cleansing No -Primary Dressing Applied Other -Other Dressing moist to dry per Treatment Response Procedure Tolerated Well Pain Scale: 0-10 Numeric Is Patient Pain Free? Yes - Visit Discharge Discharge Condition Stable Ambulatory Status Wheelchair Transportation transport Accompanied by Wound debrided: Ischial ulcer Laterality: Right Type of Debridement: Excisional debridement Anesthesia Used: 5% Lidocaine Gel Depth: Down to and including healthy tissue, in the subcutaneous layer, to muscle Percentage of wound debrided: 100 Instrument Used: 7mm curette Tissue Removed: Subcutaneous tissue and slough into the muscle. Severity: Fat Layer Exposed Amount of bleeding with debridement: Mild Bleeding Controlled with: Pressure, Compression and gauze Patient tolerated procedure well Assessment/Plan Active Problems Osteomyelitis of right side of pelvis (Chronic) Right ischial pressure sore, stage 4 (Chronic) Paraplegia (Chronic) Assessment: 1. Right ischial pressure sore, stage IV. 2. Paraplegia. 3. Chronic refractory osteomyelitis. 4. MRSA. 5. s/p excision right ischial pressure sore, Stage IV, with partial ostectomy for osteomyelitis. Plan: Continue Dakin's moistened gauze dressing changes covered by ABD pad or super absorbent pad daily and as needed. He has finished the Doxycycline, Cleocin, Flagyl, and Macrodantin for wound culture on 08/15/19 that showed MRSA, Streptococcus mitis/oralis, Corynebacterium striatum, and Corynebacterium minutissimum, and Anaerobic cocci and for the urine culture that showed Enterococcus faecalis and Staphylococcus epidermidis. His soft tissue operative culture showed MRSA, Enterococcus faecalis, Morganella morganii, and Anaerobic cocci. His bone operative culture showed MRSA, Streptococcus anginosus, Morganella morganii, and Anaerobic cocci. He was placed on Vancomycin and Levaquin and Flagyl and has finished them. A wound culture was done on 06/20/19. It showed MRSA, Klebsiella oxytoca, Corynebacterium striatum, and Streptococcus mitis/oralis. He was placed on Clindamycin and Bactrim and has finished them. His Pathology was positive for osteomyelitis. With the recent diagnosis of osteomyelitis, he would be a candidate for HBO. He will think about it and let us know. A CT Pelvis was done on 11/07/17. It was suspicious for osteomyelitis. A repeat CT Pelvis was done on 05/17/18. Once again osteomyelitis is suspected and cannot be ruled out. Prealbumin from 03/14/19 was 19.3. Encourage nutritional supplementation with protein to help the healing process. He is still deciding about a muscle flap at some point in the future. Once again it was discussed with him and his family that the pressure sore in this area rarely heals without a muscle flap especially a Stage IV pressure sore involving the bone. Follow-up for reassessment in 4 weeks. Follow-up sooner should new or concerning symptoms arise. [id number]: [id number] Mirella musc/fascia 20 sq cm/< Add On Codes: 98831 Mirella musc/fascia add-on - x1
== END 2020-07-11 23:59 ==
LOC: WC 10:45
PROVIDERS: Family Provider Preventive Medicine Occupational Medicine; PCP Preventive Medicine Occupational Medicine; Referring Provider Nurse Practitioner Family; Visit Provider Nurse Practitioner Family
DX: L89.894 Pressure ulcer of other site, stage 4 (principal); M86.651 Other chronic osteomyelitis, right thigh; G82.20 Paraplegia, unspecified; B95.62 Methicillin resistant Staphylococcus aureus infection as the cause of diseases classified elsewhere
CPT/HCPCS: 11043; 11046

== ENCOUNTER 2020-08-06 10:41 | Outpatient (RCR) | payer BC, MEDICARE, SELFPAY ==
[2020-07-12 00:14] VITALS: BP 108/47; PULSE 94; RESP 16; TEMP 36.2
[2020-08-06 10:40] VITALS: BP 105/61; PULSE 103; RESP 16; TEMP 36.5; BMI 22.2
--- NOTE | 2020-08-06 11:39 | PCM.WC.PN ---
Type of Wound Date of Service: 08/06/20 Chief Complaint: Right ischial pressure sore, Stage IV. History of Wound: Surgery 03/02/19 - Excision right ischial pressure sore, Stage IV, with partial ostectomy for osteomyelitis. Wound care - Dakin's covered with abdominal pad or super absorbant. Operative cultures - MRSA, Enterococcus faecalis, Morganella morganii, and Anaerobic cocci in the soft tissue and MRSA, Streptococcus anginosus, Morganella morganii, and Anaerobic cocci in the bone. He was started on IV Vancomycin, and Levaquin, and Flagyl. He has finished them. Another wound culture was done on 06/20/19. It showed MRSA, Klebsiella oxytoca, Corynebacterium striatum, and Streptococcus mitis/oralis. He was placed on Clindamycin and Bactrim and has finished them. He wasn't feeling well and a wound culture was done on 08/15/19. It showed MRSA, Streptococcus mitis/oralis, Corynebacterium striatum, Corynebacterium minutissimum, and Anaerobic cocci. Urine culture on 08/15/19 showed Enterococcus faecalis and Staphylococcus epidermidis. He was placed on Doxycycline, Cleocin, Flagyl, and Macrodantin. Pathology - positive for osteomyelitis. Prealbumin from 03/14/19 was 19.3. Encourage nutritional supplementation with protein to help the healing process. Today he denies fever. His appetite is ok. Progress of Wound: Ulcer is stable. - Physical Exam Vital Signs Temp Pulse Resp BP 97.7 F L 103 H 16 105/61 08/06/20 10:40 08/06/20 10:40 08/06/20 10:40 08/06/20 10:40 Wound Measurements and Assessment WC - Nurse 1 - General Ulcer Measurement Start: 08/06/20 10:39 Freq: Status: Active Protocol: Activity Type Activity Date Activity User E-Sign Co-Sign Detail Recorded Client Recorded Date Recorded By Document 08/06/20 10:40 [facility] [id number] 08/06/20 10:51 BM[facility] 08/06/20 10:40 Wound Center Nurse 1 [Ulcer Assessment] #2 right ischium post op -Combined with other wound No -Current Size (cm) - Length 6.1 -Current Size (cm) - Width 4.5 -Current Size (cm) - Depth 0.8 -Total Square Cm 27.45 -Photo Taken No -Epithelialization Small 1-33% -Tunneling No -Undermining/Tunneling Yes -Undermining/Tunneling Starts (O' 10 clock) -Undermining/Tunneling Ends (O'clock) 3 -Maximum Distance (cm) 2.4 -Circular Undermining No -Exudate Amt Large -Exudate Type Serosanguineous -Wound Margin Thickened & Rolled Under -Granulation Amt Large (67-100%) -Granulation Quality Red -Slough/Fibrin Yes -Necrosis Amt Small (1-33%) -Necrotic Tissue Type Adherent Slough -Structure Exposed Bone -Texture (Elizabeth-wound Skin Appearance) Assessed -Moisture (Elizabeth-wound Skin Appearance Assessed ) -Color (Elizabeth-wound Skin Appearance) Assessed -Temperature (Elizabeth-wound Skin No Abnormality Appearance) (Pt Warm) -Tenderness on Palpation (Elizabeth-wound No Skin Appearance) -Ulcer Cleansing Rinsed/ Irrigated with Saline -Foul Odor after Cleansing No -Anesthetic Used 4% Lidocaine Solution WC - Nurse 2 - General Ulcer CM Notes Start: 08/06/20 10:39 Freq: Status: Active Protocol: Activity Type Activity Date Activity User E-Sign Co-Sign Detail Recorded Client Recorded Date Recorded By Document 08/06/20 11:11 LIANE [id number] 08/06/20 11:13 LIANE 08/06/20 11:11 Wound Center Nurse 2 [Procedure/Treatment] -Time 11:12 -Correct Patient Yes -Correct Side, Site, Position Yes -Correct Procedure Yes -Procedure Performed Yes -Type of Procedure Debridement -Clinical Debridement Muscle / Fascia -Tissue Removed Muscle,Fascia -Post Debridement (cm) - Length 5.2 -Post Debridement (cm) - Width 5 -Post Debridement (cm) - Depth 1.2 -Total Square (Post) (cm) 26.0 -Area of Debridement (cm) - Length 5.2 -Area of Debridement (cm) - Width 5 -Total Square (Area) (cm) 26.0 -Tunneling No -Undermining/Tunneling Yes -Undermining/Tunneling Starts (O' 11 clock) -Undermining/Tunneling Ends (O'clock) 12 -Maximum Distance (cm) 2.5 -Circular Undermining No -Wound/Ulcer Outcome Not Healed -Ulcer Cleansing Rinsed/ Irrigated with Saline -Foul Odor after Cleansing No -Bioengineered Tissue No -Bleeding Controlled with Pressure -Offloading No -Treatment Response Procedure Tolerated Well -Debridement - Muscle / Fascia, 1st Yes 20sq cm -Debridement, Muscle/Fascia, ea addt' 1 l 20sq cm or part thereof [See Physician Procedure note for Specifics] Pain Scale: 0-10 Numeric [Pain] -Is Patient Pain Free? Yes - Nurse 3 - General Ulcer D/C NN Start: 08/06/20 10:39 Freq: Status: Active Protocol: Activity Type Activity Date Activity User E-Sign Co-Sign Detail Recorded Client Recorded Date Recorded By Document 08/06/20 11:27 DL [id number] 08/06/20 11:28 DL 08/06/20 11:27 Wound Care Nurse 3 [Wound Dressing] #2 right ischium post op -Ulcer Cleansing Rinsed/ Irrigated with Saline -Foul Odor after Cleansing No -Primary Dressing Covered/Secured Dry Gauze, with Secured with Tape [Post Procedure Tolerated] -Treatment Response Procedure Tolerated Well Pain Scale: 0-10 Numeric [Pain] -Is Patient Pain Free? Yes - Visit Discharge [Visit Discharge Information] -Discharge Condition Stable -Ambulatory Status Wheelchair -Transportation Private Auto -Notes: Resume dakins at home Debridement Note Post-Debridement Measurements/Treatment - Nurse 2 - General Ulcer CM Notes Start: 08/06/20 10:39 Freq: Status: Active Protocol: Activity Type Activity Date Activity User E-Sign Co-Sign Detail Recorded Client Recorded Date Recorded By Document 08/06/20 11:11 LIANE [id number] 08/06/20 11:13 LIANE 08/06/20 11:11 Wound Center Nurse 2 #2 right ischium post op -Time 11:12 -Correct Patient Yes -Correct Side, Site, Position Yes -Correct Procedure Yes -Procedure Performed Yes -Type of Procedure Debridement -Clinical Debridement Muscle / Fascia -Tissue Removed Muscle,Fascia -Post Debridement (cm) - Length 5.2 -Post Debridement (cm) - Width 5 -Post Debridement (cm) - Depth 1.2 -Total Square (Post) (cm) 26.0 -Area of Debridement (cm) - Length 5.2 -Area of Debridement (cm) - Width 5 -Total Square (Area) (cm) 26.0 -Tunneling No -Undermining/Tunneling Yes -Undermining/Tunneling Starts (O'clock 11 ) -Undermining/Tunneling Ends (O'clock) 12 -Maximum Distance (cm) 2.5 -Circular Undermining No -Wound/Ulcer Outcome Not Healed -Ulcer Cleansing Rinsed/ Irrigated with Saline -Foul Odor after Cleansing No -Bioengineered Tissue No -Bleeding Controlled with Pressure -Offloading No -Treatment Response Procedure Tolerated Well -Debridement - Muscle / Fascia, 1st Yes 20sq cm -Debridement, Muscle/Fascia, ea addt'l 1 20sq cm or part thereof Pain Scale: 0-10 Numeric Is Patient Pain Free? Yes WC - Nurse 3 - General Ulcer D/C NN Start: 08/06/20 10:39 Freq: Status: Active Protocol: Activity Type Activity Date Activity User E-Sign Co-Sign Detail Recorded Client Recorded Date Recorded By Document 08/06/20 11:27 DL [id number] 08/06/20 11:28 DL 08/06/20 11:27 Wound Care Nurse 3 #2 right ischium post op -Ulcer Cleansing Rinsed/ Irrigated with Saline -Foul Odor after Cleansing No -Primary Dressing Covered/Secured with Dry Gauze, Secured with Tape Treatment Response Procedure Tolerated Well Pain Scale: 0-10 Numeric Is Patient Pain Free? Yes WC - Visit Discharge Discharge Condition Stable Ambulatory Status Wheelchair Transportation Private Auto Notes: Resume dakins at home Assessment/Plan Assessment: 1. Right ischial pressure sore, stage IV. 2. Paraplegia. 3. Chronic refractory osteomyelitis. 4. MRSA. 5. s/p excision right ischial pressure sore, Stage IV, with partial ostectomy for osteomyelitis. Plan: Continue Dakin's moistened gauze dressing changes covered by ABD pad or super absorbent pad daily and as needed. He has finished the Doxycycline, Cleocin, Flagyl, and Macrodantin for wound culture on 08/15/19 that showed MRSA, Streptococcus mitis/oralis, Corynebacterium striatum, and Corynebacterium minutissimum, and Anaerobic cocci and for the urine culture that showed Enterococcus faecalis and Staphylococcus epidermidis. His soft tissue operative culture showed MRSA, Enterococcus faecalis, Morganella morganii, and Anaerobic cocci. His bone operative culture showed MRSA, Streptococcus anginosus, Morganella morganii, and Anaerobic cocci. He was placed on Vancomycin and Levaquin and Flagyl and has finished them. A wound culture was done on 06/20/19. It showed MRSA, Klebsiella oxytoca, Corynebacterium striatum, and Streptococcus mitis/oralis. He was placed on Clindamycin and Bactrim and has finished them. His Pathology was positive for osteomyelitis. With the recent diagnosis of osteomyelitis, he would be a candidate for HBO. He will think about it and let us know. A CT Pelvis was done on 11/07/17. It was suspicious for osteomyelitis. A repeat CT Pelvis was done on 05/17/18. Once again osteomyelitis is suspected and cannot be ruled out. Prealbumin from 03/14/19 was 19.3. Encourage nutritional supplementation with protein to help the healing process. He is still deciding about a muscle flap at some point in the future. Once again it was discussed with him and his family that the pressure sore in this area rarely heals without a muscle flap especially a Stage IV pressure sore involving the bone. Follow-up for reassessment in 4 weeks. Follow-up sooner should new or concerning symptoms arise.
== END 2020-08-10 23:59 ==
LOC: WC 10:41
PROVIDERS: Family Provider Preventive Medicine Occupational Medicine; PCP Preventive Medicine Occupational Medicine; Referring Provider Nurse Practitioner Family; Visit Provider Nurse Practitioner Family
DX: L89.314 Pressure ulcer of right buttock, stage 4 (principal); M86.68 Other chronic osteomyelitis, other site; G82.20 Paraplegia, unspecified; Z79.899 Other long term (current) drug therapy; Z86.14 Personal history of Methicillin resistant Staphylococcus aureus infection
CPT/HCPCS: 11043; 11046

== ENCOUNTER → 2020-08-06 | Outpatient (CLI) | payer BC, MEDICARE, SELFPAY ==
[2020-08-06 10:40] VITALS: BMI 22.2
== END | disposition home or self-care (01) ==
LOC: LABSPEC 14:20
PROVIDERS: PCP Preventive Medicine Occupational Medicine; Referring Provider Nurse Practitioner Family; Visit Provider Nurse Practitioner Family
DX: L98.419 Non-pressure chronic ulcer of buttock with unspecified severity (principal)
CPT/HCPCS: 87070; 87075; 87077; 87186; 87205

== ENCOUNTER 2020-09-03 10:38 | Outpatient (RCR) | payer BC, MEDICARE, SELFPAY ==
[2020-08-11 00:17] VITALS: BP 105/61; PULSE 103; RESP 16; TEMP 36.5
[2020-09-03 11:07] VITALS: BP 84/62; PULSE 97; RESP 18; TEMP 36.9; BMI 22.2
--- NOTE | 2020-09-03 11:14 | PCM.WC.PN ---
History of Present Illness Date of Service: 09/03/20 Chief Complaint: Right ischial pressure sore, Stage IV. History of Wound: Surgery 03/02/19 - Excision right ischial pressure sore, Stage IV, with partial ostectomy for osteomyelitis. Wound care - Dakin's covered with abdominal pad or super absorbant. Operative cultures - MRSA, Enterococcus faecalis, Morganella morganii, and Anaerobic cocci in the soft tissue and MRSA, Streptococcus anginosus, Morganella morganii, and Anaerobic cocci in the bone. He was started on IV Vancomycin, and Levaquin, and Flagyl. He has finished them. A wound culture was obtained on 08/06/20 due to him having some sweating issues. The culture was positive for Proteus mirabilis and MRSA. He was started on Bactrim DS. He completed the first round of antibiotics. He has decided not to get the refill at this time because he is feeling so much better. A wound culture was done on 06/20/19. It showed MRSA, Klebsiella oxytoca, Corynebacterium striatum, and Streptococcus mitis/oralis. He was placed on Clindamycin and Bactrim and has finished them. He wasn't feeling well and a wound culture was done on 08/15/19. It showed MRSA, Streptococcus mitis/oralis, Corynebacterium striatum, Corynebacterium minutissimum, and Anaerobic cocci. Urine culture on 08/15/19 showed Enterococcus faecalis and Staphylococcus epidermidis. He was placed on Doxycycline, Cleocin, Flagyl, and Macrodantin. Pathology - positive for osteomyelitis. Prealbumin from 03/14/19 was 19.3. Encourage nutritional supplementation with protein to help the healing process. Today he denies fever. His appetite is ok. Progress of Wound: Right ischial ulcer is stable. Objective Data Objective Data Vital Signs: Vital Signs Temp Pulse Resp BP 98.5 F 97 18 84/62 L 09/03/20 11:07 09/03/20 11:07 09/03/20 11:07 09/03/20 11:07 Body Mass Index (BMI) 22.2 Charges/Coding Procedures Integumentary 111xxx-113xx: [id number] Mirella musc/fascia 20 sq cm/< Add On Codes: 71621 Mirella musc/fascia add-on Physical Exam Const alert and oriented x3 General Appearance: cooperative HEENT normocephalic Eyes PERRL Resp normal respiratory effort Cardio regular rate GI Palpation: soft Extremity normal capillary refill General Extremity: Negative for edema Skin Wound Narrative: Right ischial ulcer is pink with granulation tissue. No bone is exposed. There is a tunnel at 12 o'clock. Neuro CN's II-XII intact bilaterally Psych Appearance: grossly normal Debridement Note Debridement Note Post-Debridement Measurements and Additional Note: Post-Debridement Measurements/Treatment WC - Nurse 1 - General Ulcer Assessment Start: 09/03/20 10:56 Freq: Status: Active Protocol: PAKO Activity Type Activity Date Activity User E-Sign Co-Sign Detail Recorded Client Recorded Date Recorded By Document 09/03/20 11:07 DL [id number] 09/03/20 11:12 DL 09/03/20 11:07 WC - Today's Visit Information Type of service Follow-up Visit (Physician/DETECTIVE INVESTIGATOR ) Arrival Mode Wheelchair Transfer Assistance Manual Transfer Assist (Other) x2 Patient Identification Verified (Name & Yes ) Patient Requires Transmission-Based No Precautions Height and Weight Body Mass Index (BMI) 22.2 BMI Classification Normal Vital Signs Temperature (97.8 F-99.1 F) 98.5 F Temperature Source Temporal Pulse Rate (60-100) 97 Pulse Location Monitor Respiratory Rate (12-18) 18 Respiratory rate source Observation Blood Pressure (90/60-120/80) 84/62 L Blood Pressure Mean (mm Hg) 69 Source Monitor History Since Last Visit- (Skip if this is Patient's initial visit) Any new allergies or adverse reactions No Had a fall/change in ADL's that may No increase risk of falls Signs or symptoms of abuse and/or No neglect since last visit Have you been in the hospital since your No last visit? Has dressing in place as prescribed Yes Has compression in place as prescribed N/A Has offloadiing in place as prescribed Yes Experienced any changes in pain level or No management Pain Scale: 0-10 Numeric Is Patient Pain Free? Yes - Nurse 1 - General Ulcer Measurement Start: 09/03/20 10:56 Freq: Status: Active Protocol: Activity Type Activity Date Activity User E-Sign Co-Sign Detail Recorded Client Recorded Date Recorded By Document 09/03/20 11:07 DL [id number] 09/03/20 11:12 DL 09/03/20 11:07 Wound Center Nurse 1 #2 right ischium post op -Current Size (cm) - Length 5.8 -Current Size (cm) - Width 4.8 -Current Size (cm) - Depth 1 -Total Square Cm 27.84 -Photo Taken No -Exudate Amt Medium -Exudate Type Sanguineous -Wound Margin Thickened & Rolled Under -Granulation Amt Large (67-100%) -Granulation Quality Red -Necrosis Amt Small (1-33%) -Necrotic Tissue Type Adherent Slough -Structure Exposed Bone -Texture (Elizabeth-wound Skin Appearance) Scarring -Moisture (Elizabeth-wound Skin Appearance) No Abnormality -Color (Elizabeth-wound Skin Appearance) No Abnormality -Tenderness on Palpation (Elizabeth-wound No Skin Appearance) -Ulcer Cleansing Rinsed/ Irrigated with Saline -Foul Odor after Cleansing No -Anesthetic Used 4% Lidocaine Solution,5% Lidocaine Gel WC - Nurse 2 - General Ulcer CM Notes Start: 09/03/20 10:56 Freq: Status: Active Protocol: Activity Type Activity Date Activity User E-Sign Co-Sign Detail Recorded Client Recorded Date Recorded By Document 09/03/20 11:31 [id number] 09/03/20 11:34 LIANE 09/03/20 11:31 Wound Center Nurse 2 -Time 11:32 -Correct Patient Yes -Correct Side, Site, Position Yes -Correct Procedure Yes -Procedure Performed Yes -Type of Procedure Debridement -Clinical Debridement Muscle / Fascia -Tissue Removed Muscle,Fascia -Post Debridement (cm) - Length 5.7 -Post Debridement (cm) - Width 5 -Post Debridement (cm) - Depth 0.8 -Total Square (Post) (cm) 28.5 -Area of Debridement (cm) - Length 5.7 -Area of Debridement (cm) - Width 5 -Total Square (Area) (cm) 28.5 -Tunneling Yes -Tunneling Position (O'clock) 12 -Tunneling Distance (cm) 2.6 -Undermining/Tunneling No -Circular Undermining No -Wound/Ulcer Outcome Not Healed -Ulcer Cleansing Rinsed/ Irrigated with Saline -Foul Odor after Cleansing No -Bioengineered Tissue No -Bleeding Controlled with Pressure -Offloading No -Treatment Response Procedure Tolerated Well -Debridement - Muscle / Fascia, 1st Yes 20sq cm -Debridement, Muscle/Fascia, ea addt'l 1 20sq cm or part thereof Pain Scale: 0-10 Numeric Is Patient Pain Free? Yes - Nurse 3 - General Ulcer D/C NN Start: 09/03/20 10:56 Freq: Status: Active Protocol: Activity Type Activity Date Activity User E-Sign Co-Sign Detail Recorded Client Recorded Date Recorded By Document 09/03/20 11:48 [facility] [id number] 09/03/20 11:48 [facility] 09/03/20 11:48 Wound Care Nurse 3 #2 right ischium post op -Ulcer Cleansing Rinsed/ Irrigated with Saline -Foul Odor after Cleansing No -Other Dressing pt refused dakins at this time -Primary Dressing Covered/Secured with Secured with Tape,Other -Other Covering abd Treatment Response Procedure Tolerated Well Pain Scale: 0-10 Numeric Is Patient Pain Free? Yes WC - Visit Discharge Discharge Condition Stable Ambulatory Status Wheelchair Transportation Private Auto Wound debrided: Ischial ulcer Laterality: Right Wound Grade/Stage: Stage IV Type of Debridement: Excisional debridement Anesthesia Used: 5% Lidocaine Gel Depth: Down to and including healthy tissue, in the subcutaneous layer and to muscle Percentage of wound debrided: 100 Instrument Used: 7mm curette Tissue Removed: Subcutaneous tissue and slough into the muscle. Severity: Fat Layer Exposed Bleeding Controlled with: Pressure Patient tolerated procedure: Patient tolerated procedure well Assessment/Plan Assessment/Plan (1) Right ischial pressure sore, stage 4: CODE(S): L89.314 - Pressure ulcer of right buttock, stage 4 PLAN: Continue Dakin's moistened gauze dressing changes covered by ABD pad or super absorbent pad daily and as needed. Wound culture obtained on 08/06/20 due to his complaints of intermittent fevers, sweating on his left side and increase spasm of his legs.? The culture was positive for Proteus mirabilis and MRSA. He was started on Bactrim DS and completed 3 week course. He has finished the Doxycycline, Cleocin, Flagyl, and Macrodantin for wound culture on 08/15/19?that showed MRSA, Streptococcus mitis/oralis, Corynebacterium striatum, and Corynebacterium minutissimum, and Anaerobic cocci and for the urine culture that showed Enterococcus faecalis and Staphylococcus epidermidis.? ? His soft tissue operative culture showed MRSA, Enterococcus faecalis, Morganella morganii, and Anaerobic cocci.? His bone operative culture showed MRSA, Streptococcus anginosus, Morganella morganii, and Anaerobic cocci.? He was placed on Vancomycin and Levaquin and Flagyl and has finished them.? A wound culture was done on 06/20/19.? It showed MRSA, Klebsiella oxytoca, Corynebacterium striatum, and Streptococcus mitis/oralis.? He was placed on Clindamycin and Bactrim and has finished them.? His Pathology was positive for osteomyelitis.? With the recent diagnosis of osteomyelitis, he would be a candidate for HBO.? He will think about it and let us know.? A CT Pelvis was done on 11/07/17. It was suspicious for osteomyelitis.? A repeat CT Pelvis was done on 05/17/18.? Once again osteomyelitis is suspected and cannot be ruled out.? Prealbumin from 03/14/19 was 19.3.? Encourage nutritional supplementation with protein to help the healing process. ? He is still deciding about a muscle flap at some point in the future.? Once again it was discussed with him and his family that the pressure sore in this area rarely heals without a muscle flap especially a Stage IV pressure sore involving the bone.? Follow-up for reassessment in 4 weeks.? Follow-up sooner should new or concerning symptoms arise. (2) Osteomyelitis of right side of pelvis: CODE(S): M86.9 - Osteomyelitis, unspecified (3) Paraplegia: CODE(S): G82.20 - Paraplegia, unspecified (4) MRSA (methicillin resistant Staphylococcus aureus) infection: CODE(S): A49.02 - Methicillin resistant Staphylococcus aureus infection, unspecified site
== END 2020-09-10 23:59 ==
LOC: WC 10:38
PROVIDERS: Family Provider Preventive Medicine Occupational Medicine; PCP Preventive Medicine Occupational Medicine; Referring Provider Nurse Practitioner Family; Visit Provider Nurse Practitioner Family
DX: L89.314 Pressure ulcer of right buttock, stage 4 (principal); M86.9 Osteomyelitis, unspecified; B95.62 Methicillin resistant Staphylococcus aureus infection as the cause of diseases classified elsewhere; G82.20 Paraplegia, unspecified; Z79.899 Other long term (current) drug therapy
CPT/HCPCS: 11043; 11046

== ENCOUNTER 2020-10-19 10:07 | Outpatient (RCR) | payer BC, MEDICARE, SELFPAY ==
[2020-10-18 11:18] LABS: Vancomycin, Trough Level 7.5 ug/mL (5.0-15.0)
[2020-10-18 11:23] LABS: ALB/GLOB Ratio 0.7 RATIO (0.9-2.4); AST(SGOT) 12 U/L (15-37); Alanine Aminotransfer ALT/SGPT 19 U/L (16-61); Albumin, Serum 2.5 g/dL (3.2-5.0); Alkaline Phosphatase 88 U/L (45-117); Anion Gap 10 (5-15); BUN 25 mg/dL (7-18); BUN/Creat Ratio 62.8 RATIO (10-20); Calcium,Total 8.6 mg/dL (8.5-10.1); Chloride 103 mmol/L (98-107); EST Glomerular Filtration Rate 240 mL/min (>60); Est Glom Filt Rate - Afr Amer 290 mL/min (>60); Globulin 3.6 g/dL (2.2-4.2); Glucose 77 mg/dL (74-106); Potassium 3.9 mmol/L (3.5-5.1); Protein, Total 6.1 g/dL (6.4-8.2); Sodium Level 140 mmol/L (136-145)
[2020-10-19 10:52] LABS: Hematocrit 33.8 % (40-54); Hemoglobin 9.9 g/dL (13.0-16.5); Mean Corp Hgb Conc 29.3 g/dL (32-36); Mean Corpuscular Hgb 22.6 pg (27.0-32.0); Mean Platelet Vol. 8.9 fl (6.2-12.0); Platelet Count 439 K/mm3 (150-450); RBC Distribution Width CV 16.8 % (11.6-14.6); RBC Distribution Width SD 46.9 fl (35.1-43.9); Red Blood Count 4.39 M/mm3 (4.6-6.2); White Blood Count 9.8 K/mm3 (4.4-11.0)
[2020-10-19 10:59] LABS: Erythrocyte Sedimentation Rate 93 mm/hr (0-20)
== END 2020-11-10 23:59 ==
LOC: LABSPEC 10:07
PROVIDERS: PCP Preventive Medicine Occupational Medicine
DX: N20.1 Calculus of ureter (principal); A41.9 Sepsis, unspecified organism; N39.0 Urinary tract infection, site not specified
CPT/HCPCS: 80053; 80202; 85027; 85652

== ENCOUNTER → 2020-10-23 | Outpatient (CLI) | payer BC, MEDICARE, SELFPAY ==
[2020-10-23 17:56] LABS: Hematocrit 32.3 % (40-54); Hemoglobin 9.9 g/dL (13.0-16.5); Mean Corp Hgb Conc 30.7 g/dL (32-36); Mean Corpuscular Volume 74.9 fL (80-94); Mean Platelet Vol. 8.8 fl (6.2-12.0); Platelet Count 367 K/mm3 (150-450); RBC Distribution Width CV 16.3 % (11.6-14.6); RBC Distribution Width SD 44.6 fl (35.1-43.9); Red Blood Count 4.31 M/mm3 (4.6-6.2); White Blood Count 6.3 K/mm3 (4.4-11.0)
[2020-10-23 18:03] LABS: Erythrocyte Sedimentation Rate 54 mm/hr (0-20); POSITIVE COUNT NO; POSITIVE DIFFERENTIAL NO; POSITIVE MORPHOLOGY NO; Scan Indicated on CBC? Y/N NO
[2020-10-23 19:18] LABS: Vancomycin, Trough Level 9.5 ug/mL (5.0-15.0)
[2020-10-23 19:22] LABS: ALB/GLOB Ratio 0.8 RATIO (0.9-2.4); AST(SGOT) 16 U/L (15-37); Alanine Aminotransfer ALT/SGPT 23 U/L (16-61); Albumin, Serum 2.9 g/dL (3.2-5.0); Alkaline Phosphatase 97 U/L (45-117); Anion Gap 6 (5-15); BUN 20 mg/dL (7-18); BUN/Creat Ratio 42.7 RATIO (10-20); Calcium,Total 8.5 mg/dL (8.5-10.1); Chloride 109 mmol/L (98-107); Creatinine, Serum 0.47 mg/dL (0.70-1.30); EST Glomerular Filtration Rate 199 mL/min (>60); Est Glom Filt Rate - Afr Amer 240 mL/min (>60); Globulin 3.6 g/dL (2.2-4.2); Glucose 89 mg/dL (74-106); Potassium 3.9 mmol/L (3.5-5.1); Protein, Total 6.5 g/dL (6.4-8.2); Sodium Level 141 mmol/L (136-145)
== END | disposition home or self-care (01) ==
PROVIDERS: PCP Preventive Medicine Occupational Medicine
DX: N39.0 Urinary tract infection, site not specified (principal); A41.9 Sepsis, unspecified organism; N20.1 Calculus of ureter
CPT/HCPCS: 80053; 80202; 85027; 85652

== ENCOUNTER → 2020-11-06 | Outpatient (CLI) | payer BC, MEDICARE, SELFPAY ==
[2020-11-06 11:29] LABS: Hematocrit 34.2 % (40-54); Hemoglobin 10.5 g/dL (13.0-16.5); Mean Corp Hgb Conc 30.7 g/dL (32-36); Mean Corpuscular Hgb 23.3 pg (27.0-32.0); Mean Corpuscular Volume 75.8 fL (80-94); Mean Platelet Vol. 9.1 fl (6.2-12.0); Platelet Count 342 K/mm3 (150-450); RBC Distribution Width CV 16.3 % (11.6-14.6); RBC Distribution Width SD 44.9 fl (35.1-43.9); Red Blood Count 4.51 M/mm3 (4.6-6.2); White Blood Count 6.2 K/mm3 (4.4-11.0)
[2020-11-06 11:31] LABS: Vancomycin, Trough Level 17.6 ug/mL (5.0-15.0)
[2020-11-06 11:33] LABS: ALB/GLOB Ratio 0.9 RATIO (0.9-2.4); AST(SGOT) 17 U/L (15-37); Alanine Aminotransfer ALT/SGPT 24 U/L (16-61); Albumin, Serum 3.2 g/dL (3.2-5.0); Alkaline Phosphatase 101 U/L (45-117); Anion Gap 6 (5-15); BUN 26 mg/dL (7-18); BUN/Creat Ratio 62.2 RATIO (10-20); Calcium,Total 8.7 mg/dL (8.5-10.1); Chloride 106 mmol/L (98-107); Creatinine, Serum 0.42 mg/dL (0.70-1.30); EST Glomerular Filtration Rate 226 mL/min (>60); Est Glom Filt Rate - Afr Amer 274 mL/min (>60); Globulin 3.7 g/dL (2.2-4.2); Glucose 88 mg/dL (74-106); Protein, Total 6.9 g/dL (6.4-8.2); Sodium Level 140 mmol/L (136-145)
[2020-11-06 11:37] LABS: Erythrocyte Sedimentation Rate 67 mm/hr (0-20)
== END | disposition home or self-care (01) ==
LOC: LABSPEC 10:51
DX: N20.1 Calculus of ureter (principal); A41.9 Sepsis, unspecified organism; N39.0 Urinary tract infection, site not specified
CPT/HCPCS: 80053; 80202; 85027; 85652

== ENCOUNTER → 2020-11-13 | Outpatient (CLI) | payer BC, MEDICARE, SELFPAY ==
[2020-11-13 13:25] LABS: Erythrocyte Sedimentation Rate 54 mm/hr (0-20)
[2020-11-13 13:26] LABS: Hematocrit 35.5 % (40-54); Hemoglobin 10.9 g/dL (13.0-16.5); Mean Corp Hgb Conc 30.7 g/dL (32-36); Mean Corpuscular Hgb 23.2 pg (27.0-32.0); Mean Corpuscular Volume 75.7 fL (80-94); Mean Platelet Vol. 9.2 fl (6.2-12.0); Platelet Count 340 K/mm3 (150-450); RBC Distribution Width SD 43.5 fl (35.1-43.9); Red Blood Count 4.69 M/mm3 (4.6-6.2); White Blood Count 9.3 K/mm3 (4.4-11.0)
[2020-11-13 13:31] LABS: ALB/GLOB Ratio 0.8 RATIO (0.9-2.4); AST(SGOT) 21 U/L (15-37); Alanine Aminotransfer ALT/SGPT 27 U/L (16-61); Albumin, Serum 3.3 g/dL (3.2-5.0); Alkaline Phosphatase 115 U/L (45-117); Anion Gap 8 (5-15); BUN 23 mg/dL (7-18); BUN/Creat Ratio 52.6 RATIO (10-20); Calcium,Total 9.3 mg/dL (8.5-10.1); Chloride 104 mmol/L (98-107); Creatinine, Serum 0.44 mg/dL (0.70-1.30); EST Glomerular Filtration Rate 215 mL/min (>60); Est Glom Filt Rate - Afr Amer 260 mL/min (>60); Glucose 71 mg/dL (74-106); Potassium 3.9 mmol/L (3.5-5.1); Protein, Total 7.3 g/dL (6.4-8.2); Sodium Level 140 mmol/L (136-145); Vancomycin, Trough Level 20.2 ug/mL (5.0-15.0)
== END | disposition home or self-care (01) ==
LOC: LABSPEC 12:55
DX: A41.9 Sepsis, unspecified organism (principal); N20.1 Calculus of ureter; N39.0 Urinary tract infection, site not specified
CPT/HCPCS: 80053; 80202; 85027; 85652

== ENCOUNTER 2020-11-23 12:03 | Inpatient (IN) | payer BC, MEDICARE, SELFPAY ==
[2020-11-23] VITALS (14 sets, daily range): BP systolic 98–164; BP diastolic 49–123; PULSE 56–102; RESP 16; TEMP 35.9–36.7; O2SAT 96–100; BMI 22.4
--- NOTE | 2020-11-23 07:20 | RAD_ITS ---
HISTORY: preop. TECHNIQUE: XR Abdomen 1 View. # of images incl. paperwork: 2. COMPARISON: None. FINDINGS: BOWEL GAS PATTERN: No dilated bowel loops. Moderate stool in the colon. FREE AIR: Not assessed on supine view. CALCIFICATIONS: Right percutaneous nephrostomy tube noted with calcifications at both renal shadows. OSSEOUS STRUCTURES: Degenerative change. Advanced enthesopathy of the pelvis and hips. RAD/Abdomen Single View IMPRESSION: Nephrolithiasis. Right nephrostomy tube. at 0827 Reported and signed by: Alannah Robins MD Electronically Signed: Alannah Robins MD at 8:26 EDT Tel , Service support ,
[2020-11-23] MEDS: Lactated Ringers 1,000 ML 100 ML IV (08:00)
--- NOTE | 2020-11-23 10:02 | PCM.HP.STD ---
HPI - General HPI Narrative ZORAIDA MOTA, is a 55 M who presents For treatment of a stone in the right kidney he had a nephrostomy tube placed for obstructing stone and proceeded the percutaneous removal of the stone. [facility] Medical History (Updated 11/23/20 @ 10:[address] Martín Carr MD) History of cervical fracture History of rheumatic fever Hx of corrected cleft lip and palate Injury of head and neck MRSA infection Non-smoker Pressure ulcer Quadriplegia Uses wheelchair Wears partial dentures Home Medications ascorbic acid (vitamin C) [Vitamin C] 500 mg PO DAILY@0800 12/19/16 [History Last Taken 03/13/19] cholecalciferol (vitamin D3) [Vitamin D3] 1,000 unit PO DAILY 12/19/16 [History Last Taken 03/13/19] multivitamin [Daily Multiple] 1 ea PO DAILY 12/19/16 [History Last Taken 03/13/19] bisacodyl 10 mg RECTAL QODAY #15 suppos. 03/16/19 [Rx Last Taken Unknown] meropenem-0.9% sodium chloride 1 g IV Q8H 11/16/20 [History Last Taken Unknown] vancomycin in dextrose 5 % 1.5 g IV Q24H 11/16/20 [History Last Taken Unknown] Allergy/AdvReac Type Severity Reaction Status Date / Time latex Allergy Rash Verified 11/23/20 08:14 linezolid [From Zyvox] Allergy Hives Verified 11/23/20 08:14 Penicillins Allergy Hives Verified 11/23/20 08:14 all tapes Allergy blisters Uncoded 11/23/20 08:14 Surgical History (Updated 11/16/20 @ 13:07 by Tamia Caicedo) History of myringotomy History of nephrostomy History of plastic surgery Social History Smoking Status: Never smoker Vital Signs Vital Signs Vital Signs: 11/23/20 08:15 Temperature 96.9 F L Temperature Source Temporal Pulse Rate 60 Respiratory Rate 16 Respiratory Pattern Normal Blood Pressure 107/62 Blood Pressure Mean 77 Blood Pressure Source Monitor Blood Pressure Position Semi-Fowlers Blood Pressure Location Right Arm Pulse Ox 97 Oxygen Delivery Method Room Air Weight Weight: 61.235 kg Body Mass Index (BMI) 22.4 Physical Exam Const alert and oriented x3 General Appearance: cooperative HEENT normocephalic, head/scalp atraumatic, EAC's normal and TM's normal bilaterally Eyes PERRL and EOMs intact bilaterally Pupil: sluggish Neck no lymphadenopathy, supple and no JVD General: trachea midline Lymph Lymphatic: no lymphadenopathy noted, lymphedema and lymphadenopathy Resp normal respiratory effort, normal air movement and clear to auscultation bilaterally Cardio regular rate, regular rhythm and peripheral pulses 2+ throughout GI soft to palpation, non-tender and non-distended Extremity normal capillary refill and no clubbing, cyanosis or edema General Extremity: no tenderness to palpation of joints or extremities Skin no rashes or lesions noted General Skin Exam: turgor normal Lesions: no lesions Rashes: no rashes Neuro CN's II-XII intact bilaterally Speech: speech normal Motor Exam: strength 5/5 throughout; Negative for general weakness Psych thought process normal, cooperative and affect normal Appearance: appropriate Results Radiology Impression KUB X-Ray 11/23/20 07:20 IMPRESSION: Nephrolithiasis. Right nephrostomy tube. at 0827 Reported and signed by: Alannah Robins MD Electronically Signed: Alannah Robins MD at 8:26 EDT Tel , Service support , Assessment & Plan Assessment/Plan (1) Right kidney stone: PLAN: 55-year-old male who has a right staghorn calculus proceed with a percutaneous removal stone.
--- NOTE | 2020-11-23 10:04 | PCM.DC ---
Discharge Instructions Diet Discharge Diet: No restrictions Activity Discharge Activity: Return to Normal Activity and May Not Drive (while taking narcotic pain medications.) Dressing / Incision Call your doctor if you observe: Fever of 101 or Higher Follow Up Care Please Follow Up With: Martín Carr MD When: Call [phone] for an appointment Test Results: Test results from this visit will be discussed in further detail at your follow-up appointment, if applicable. Discharge Plan Admission Primary Reason for Your Visit: percutaneous treatment of stones Attending Provider: Martín Carr Primary Care Provider: Alexander Mendoza Discharge Orders/Prescriptions Prescriptions: Continued multivitamin [Daily Multiple] 1 EACH tablet 1 ea PO DAILY RF: 0 ascorbic acid (vitamin C) [Vitamin C] 500 MG tablet 500 mg PO DAILY@0800 RF: 0 cholecalciferol (vitamin D3) [Vitamin D3] 1,000 UNIT capsule 1,000 unit PO DAILY RF: 0 bisacodyl 10 MG suppository 10 mg RECTAL QODAY Qty: 15 RF: 6 vancomycin in dextrose 5 % 500 mg/100 mL Piggyback 1.5 g IV Q24H RF: 0 meropenem-0.9% sodium chloride 1 gram/50 mL Piggyback 1 g IV Q8H RF: 0 Referrals / Follow Up: Martín Carr MD [STAFF PHYSICIAN] - Alexander Mendoza DO [Primary Care Provider] - Disposition Disposition (needs filled in before D/C Order can be placed): Home, Self Care
[2020-11-23] MEDS: Cefazolin 2 GM in 0.9% Normal Saline 100 ML IV (10:14)
[2020-11-23] MEDS: Bupivacaine Mpf 0.5% 30 ML VIAL (10:45)
--- NOTE | 2020-11-23 12:04 | OP.PCM_ITS ---
Report of Operation Date of Procedure: 11/23/20 Pre-Operative Diagnosis: 1.5 cm right renal calculus status post nephrostomy tu be for sepsis Post-Operative Diagnosis: Same Surgery/Procedure Performed:: Right percutaneous nephrostolithotomy, placement of nephrostomy tube, cystoscopy right retrograde pyelogram and right stent placement, evacuation of stones from bladder and retrograde pyelogram and interpretation of images. 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, the right nephrostomy tube area was then prepped and draped in usual sterile fashion, through the existing tube I advanced a wire into the right kidney in the renal pelvis the wire coiled in the renal pelvis and then over the wire I dilated a tract using the serial dilators 8 Seneg[place]e, 10 Senegalese and then 12 [place]e, once a nephrostomy tube access with was established then I placed a otoe-missouria tip wire down the ureter and left a Super Stiff wire in place for secure axis this wire was left for the entire case the next to the wire went in with a dual-lumen catheter put a second wire in this was the working wire, then over the working wire I went in with a flexible ureteroscope and got into the renal pelvis and inspected the upper pole midpole lower pole the renal pelvis there was a stone that was encountered in the renal pelvis using a 270 ?m laser fiber the stone was laser little tiny pieces and then I worked my way down the ureter using the flexible ureteroscope until I encountered the balloon of the catheter away work my way back up the ureter no other major fragments were along the course of the ureter the ureter was fairly tortuous in their proximal ureter from prior obstruction. Once we completed the nephrolithotomy then over the wire that was a safety wire I placed the nephrostomy tube back into the right kidney. We performed a nephrostogram demonstrating the tube was in proper position the right kidney. The patient was then positioned in dorsolithotomy position the nephrostomy tube was secured to the back and secured to the Palacios bag. Palacios catheter was then removed the penis and testicles were prepped and draped in usual sterile fashion. I then went into the bladder with a 21 Sen[place]e rigid cystourethroscope, within the bladder there was some sludge and stone debris within the bladder this was evacuated out and removed from the bladder and then I cannulated the right ureteral orifice performed a retrograde pyelogram to see contrast going up to the right kidney and then advance a wire up into the right kidney and over the wire place a stent. Once the stent was in good position then I put a catheter in the bladder patient anesthetic was reversed plan is to keep the patient in the hospital with a history of sepsis from an infected stone will clamp the nephrostomy tube and remove it in a day or 2 and he would stay in the hospital because of the risk of sepsis from treating this infected stone. Type of Anesthesia: General Drains: nephrostomy tube, palacios, stent Admit VTE Documentation VTE Present on Admission: No VTE Mechan Device Prophylaxis: SCD's
[2020-11-23] MEDS: 0.9% Normal Saline 1,000 ML 125 ML IV ×2 (13:18→22:08)
[2020-11-23 18:55] LABS: Vancomycin, Trough Level 7.4 ug/mL (5.0-15.0)
--- NOTE | 2020-11-23 21:27 | NURSING ---
Special mattress delivered around 2109.
[2020-11-23] MEDS: 0.9% Saline Lock 10 ML Syringe IV (22:12)
[2020-11-24 02:16] VITALS: BP 130/77; PULSE 93; RESP 16; TEMP 36.7; O2SAT 97
[2020-11-24] MEDS: Ketorolac 15 MG/ML Vial IV ×2 (02:29→22:55)
[2020-11-24 05:44] VITALS: BP 114/73; PULSE 96; RESP 16; TEMP 36.6; O2SAT 97
[2020-11-24 06:33] LABS: Hematocrit 32.5 % (40-54); Hemoglobin 9.8 g/dL (13.0-16.5); Mean Corp Hgb Conc 30.2 g/dL (32-36); Mean Corpuscular Hgb 23.2 pg (27.0-32.0); Mean Platelet Vol. 9.1 fl (6.2-12.0); Platelet Count 274 K/mm3 (150-450); RBC Distribution Width CV 15.9 % (11.6-14.6); RBC Distribution Width SD 44.2 fl (35.1-43.9); Red Blood Count 4.22 M/mm3 (4.6-6.2); White Blood Count 7.8 K/mm3 (4.4-11.0)
[2020-11-24 06:46] LABS: Anion Gap 6 (5-15); BUN 21 mg/dL (7-18); BUN/Creat Ratio 44.4 RATIO (10-20); Calcium,Total 8.1 mg/dL (8.5-10.1); Chloride 113 mmol/L (98-107); Creatinine, Serum 0.47 mg/dL (0.70-1.30); EST Glomerular Filtration Rate 196 mL/min (>60); Est Glom Filt Rate - Afr Amer 237 mL/min (>60); Estimated Creatinine Clearance 155.62 ml/min; Glucose 94 mg/dL (74-106); Potassium 3.6 mmol/L (3.5-5.1); Sodium Level 142 mmol/L (136-145)
[2020-11-24] MEDS: 0.9% Normal Saline 1,000 ML 125 ML IV ×2 (07:38→16:20)
[2020-11-24 08:20] VITALS: BP 117/80; PULSE 89; RESP 18; TEMP 36.7; O2SAT 100
--- NOTE | 2020-11-24 08:47 | PCM.PN.BLA ---
Progress Note Clamp nephrostomy tube s/p perc yesterday check CT scan today hopefully discharge tomorrow
--- NOTE | 2020-11-24 08:48 | CT_ITS ---
EXAM: CT ABDOMEN AND PELVIS WITHOUT INTRAVENOUS CONTRAST CLINICAL INDICATION: stones TECHNIQUE: Helically acquired images were obtained of the abdomen and pelvis without intravenous contrast. This CT exam was performed using one or more of the following dose reduction techniques: automated exposure control, adjustment of the mA and/or kV according to patient size, and/or use of iterative reconstruction technique. This report was created using [employer] report [employer] technology. COMPARISON: CT pelvis without contrast 05/17/2018. No prior CT abdomen comparison. FINDINGS: LOWER THORAX: Small and prominent cysts in the left anterior lung base. Minimal interlobular septal thickening in the lung bases. No cardiomegaly. No significant pericardial effusion. ABDOMEN: LIVER: Unremarkable. Homogeneous. GALLBLADDER AND BILE DUCTS: Unremarkable. No calcified gallstones. No gallbladder distention or wall edema. No intra- or extrahepatic biliary ductal dilation. PANCREAS: Unremarkable. No focal cystic mass. SPLEEN: Unremarkable. Normal size without focal cystic or solid mass. ADRENALS: Unremarkable. No nodules. KIDNEYS AND URETERS: Right posterior percutaneous nephrostomy drain catheter pigtail loop is in the renal hilum. Double-J stent extends from the right lower infundibulum down to the urinary bladder. No hydronephrosis. 7.4 mm nonobstructing calculus in the right upper renal pole. 2 mm nonobstructing calculus in the left kidney. No left hydronephrosis STOMACH AND BOWEL: Unremarkable. No stomach or bowel distention. No focal inflammatory change. PELVIS: APPENDIX: The appendix is not visualized but no secondary signs of acute appendicitis. BLADDER: Indwelling ROME catheter inside the empty urinary bladder. Interval clearing of small left posterior urinary bladder calculus. REPRODUCTIVE: Unremarkable as visualized. No mass. ABDOMEN and PELVIS: INTRAPERITONEAL SPACE: Unremarkable. No ascites or other fluid collection. No free air. BONES/JOINTS: Unremarkable. No suspicious lytic or blastic abnormality. SOFT TISSUES: Unremarkable. No discrete abdominal or pelvic wall hernia. VASCULATURE: Unremarkable. Abdominal aorta is non-dilated. LYMPH NODES: Unremarkable. No enlarged lymph nodes. CT/Abdomen/Pelvis without Cont IMPRESSION: 1. Normal function of the right percutaneous nephrostomy drain catheter and the right double-J stent. 2. No right hydronephrosis. 3. 7.4 mm nonobstructing calculus in the right upper renal pole and 2 mm nonobstructing calculus in the left kidney. 4. Interval clearing of small left posterior urinary bladder calculus when compared to CT pelvis of 07/31/2018. 5. No acute abnormality in the abdomen and pelvis. Electronically Signed: Noman Briggs MD at 10:19 EDT , Service support ,
[2020-11-24] MEDS: Cholecalciferol (VIT D3) 25 MCG TABLET (1,000 UNITS) PO (10:43)
[2020-11-24] MEDS: Ascorbic Acid 500 MG Tablet PO (10:44)
[2020-11-24] MEDS: Multivitamins,Therapeutic Tablet 1 TABLET PO (10:44)
--- NOTE | 2020-11-24 11:40 | CASEMGMT ---
RN CM LABORATORY CUREMAN CM to room to meet with patient for initial transition planning/care coordination assessment. RN CM introduced self and role at [facility].? Pt voices understanding and consents to assessment at this time.? Pt resting in bed in no distress at this time.? @ bedside. Pt is A/O at this time and answers all questions appropriately.?? Care providers, pharmacy, and demographics verified/updated at this time. PCP: Dr Mendoza Specialists: Dr Ken @ [facility], Dr Carr-urology, Dr Isatu Newmanr--ID @ [facility] Preferred Pharmacy: [facility] Insurance: DIAMANTE Roach Prescription Benefit:?Yes Living Will/HPOA:? Has both LW and HPOA, who is his , Hortensia DAVISOK: , Hortensia Living Arrangements: Lives w/his @ his [id number]'s home @ [address] which is [facility]. (They have renovated/remodeld pt/wifes home @ [address] and it is all handicapped accessible, but they have not moved into it yet). Pt is paraplegic. Has lift to go from one level to the next in current home. assists w/care as needed. They hire private-pay aide 5 days/week for 2 hrs a day to assist w/bathing/drsg/transferring and light housekeeping as needed. Transportation: Pt states drives self in van that is converted to drive w/handles and states no transportation concerns at this time.? also drives DME: States has the following DME:? hospital bed, W/C, Bre[place] lift, motorized power chair, stair lift. ?Pt states no need for further DME at this time.? HHC/SNF: Hx: [facility] 1992 and [facility]. Active w/[facility]: SN for IV atb's. Call placed to [facility] and spoke w/Meeta. She is aware pt has been admitted to [facility] and anticipate ready for d/c home tomorrow. [facility] care order placed for HHC. [facility] order and H/P faxed to [facility] at this time Pt/ wish for pt to return home w/[facility] and states has no concerns with going home at time of discharge.? CM to follow for any further discharge planning/needs.? Pt/ voice no further concerns/needs at this time.? Advised them to ask for CM if any further questions/concerns/needs arise.? They voice understanding. PLAN: ?Home w/[facility]: SN for IV atb. Green sheet placed on chart w/instructions for [facility] @ d/c. Meghan TABORN RN CM
[2020-11-24 14:34] VITALS: BP 97/73; PULSE 100; RESP 18; TEMP 36.5; O2SAT 97
[2020-11-24 21:45] VITALS: BP 149/100; PULSE 116; RESP 18; TEMP 36.9; O2SAT 97
[2020-11-25 03:15] VITALS: BP 135/94; PULSE 103; RESP 18; TEMP 36.9; O2SAT 97
[2020-11-25] MEDS: 0.9% Normal Saline 1,000 ML 125 ML IV (05:43)
--- NOTE | 2020-11-25 08:11 | PCM.PN.GU ---
Subjective Subjective Status post percutaneous approach to the right kidney CAT scan reviewed he still has a small fragment and an upper pole location I was not able to be reached percutaneously. Nephrostomy tube removed he has a stent in place he will go home today with a set him up for outpatient laser the remaining fragment. Objective Data Objective Data Vital Signs: Vital Signs Temp Pulse Resp BP Pulse Ox 98.4 F 103 H 18 135/94 H 97 11/25/20 03:15 11/25/20 03:15 11/25/20 03:15 11/25/20 03:15 11/25/20 03:15 Oxygen Delivery Method Room Air Weight: 61.235 kg Body Mass Index (BMI) 22.4 Intake & Output: Intake and Output for Last 24 Hours 11/23/20 11/24/20 11/25/20 23:59 23:59 23:59 Intake Total 2103.75 / 2353.75 4514.17 / 4514.17 1100 / 1100 Output Total 950 / 1500 2775 / 2775 1700 / 1700 Balance 1153.75 / 853.75 1739.17 / 1739.17 -600 / -600 Medical Nutrition Assessment Dietitian: Nutrition Therapy Diagnosis Start: 11/24/20 11:52 Freq: Status: Active Protocol: Document 11/24/20 12:00 AG (Rec: 11/24/20 12:00 AG [id number]) Nutrition Malnutrition Evidence of Malnutrition Exists No Intake Problem Increased Nutrient Needs (specify) Etiology (protein) r/t wounds Signs/Symptoms as evidenced by R ischial pressure injury Status Active Problem Recommendation Dietitian Recommendations/Changes continue regular diet. Ensure Pudding w/ dinners and 120mL Ensure Enlive 4x/day for additional protein if consumed . Lab / Micro Data Result Diagrams: 11/24/20 06:10 11/24/20 06:10 Radiography Diagnostic Testing: Radiology Impression Abdomen/Pelvis CT 11/24/20 08:48 IMPRESSION: 1. Normal function of the right percutaneous nephrostomy drain catheter and the right double-J stent. 2. No right hydronephrosis. 3. 7.4 mm nonobstructing calculus in the right upper renal pole and 2 mm nonobstructing calculus in the left kidney. 4. Interval clearing of small left posterior urinary bladder calculus when compared to CT pelvis of 07/31/2018. 5. No acute abnormality in the abdomen and pelvis. Electronically Signed: Noman Briggs MD at 10:19 EDT , Service support ,
--- NOTE | 2020-11-25 08:47 | NURSING ---
discharge instructions/information faxed to [facility] as per suzie. Pt's updated on DC orders
[2020-11-25] MEDS: Ascorbic Acid 500 MG Tablet PO (09:14)
[2020-11-25] MEDS: Multivitamins,Therapeutic Tablet 1 TABLET PO (09:15)
[2020-11-25] MEDS: Cholecalciferol (VIT D3) 25 MCG TABLET (1,000 UNITS) PO (09:15)
[2020-11-25 09:59] VITALS: BP 144/89; PULSE 98; RESP 20; TEMP 36.7; O2SAT 98
--- NOTE | 2020-11-25 15:40 | CASEMGMT ---
1403- S/w TATYANA Phillips and states patient was DC'd this morning with [facility] for IV Abx. Received call from [facility] nurse stating that patient does not have IV tubing for medication. S/w [facility] Nurse Meeta #[phone], States that they just received [facility] and SOC won't start until tomorrow 8.16.21. States previous IV Abx was Meropenem Q8hr and patient had only a couple of days left and was in the hospital so she is not sure about [facility]- thought Meropenem would have been completed. States [facility] #[phone] was delivering Abx and she has s/w pharmacist #[phone] to try to get IV special drop tubing sent out. Per pharmacist she never received [facility] Rx order and appears patient should also be started on new IV abx Vancomycin Q24hr. Pharmacist would need DC papers or medication orders faxed to #[phone]. [facility] . Escalated to assistant clinical nurse manager Vanessa Cassidy to f/u tomorrow. Updated TATYANA Phillips on above. Lynne Mohr RNCM
--- NOTE | 2020-11-26 10:17 | CASEMGMT ---
TATYANA MEZA Follow-up re: IV antibiotic. Late entry for 11/25/20 This RN DERRICK spoke with Katie, phamacist with [facility] who states pt had medication remaining at home from previous delivery. Pt reported to Pat that he did not have the tubing to infuse and that Dr. Carr had instructed him to complete the remaining doses he had at home. Pat states she did not have a prescription to fill based on this guidance provided to the patient but was sending out the necessary tubing needed for pt to complete the doses. The original prescription had an end date of 11/24/20 per Pat. Pat requested that a copy of the discharge instructions be sent to her. Informed Pat that this RN CM was not in the office but could fax the instructions in the AM to which she was agreeable. Phone call placed to pt. Pt states he has been in touch with [facility], is aware that they are delivering the tubing, and states he is aware of his previous dose times. Pt also aware of resumption of his home health care on 11/26/20 and states this an acceptable time frame. Pt denied any further questions or concerns. Freida Zuniga RN CM
--- NOTE | 2020-11-26 10:26 | CASEMGMT ---
TATYANA MEZA Follow-up: This RN CM faxed the discharge instructions attn: Pat at [facility] as requested. It was also reported that [facility] had not received a copy of the resumption of care order. This order along with the H&P and DC instructions was faxed to N on this date. Call placed to N to confirm receipt and message left requesting a return call if they were not received. Freida Zuniga RN CM
== END 2020-11-25 09:51 | disposition home or self-care (01) | DRG 659 ==
LOC: SDC 12:09 → MS3 12:09
PROVIDERS: Admitting Provider Urology; PCP Preventive Medicine Occupational Medicine; Referring Provider Urology; Visit Provider Urology
PROC: 0T768DZ Dilation of Right Ureter with Intraluminal Device, Via Natural or Artificial Opening Endoscopic (ICD-10-PCS; principal; 2020-11-23 09:00)
DX: N20.0 Calculus of kidney (principal); G82.50 Quadriplegia, unspecified
CPT/HCPCS: 36415; 74018; 74176; 76000; 80048; 80202; 85027; 97802; 99251; J2185; J7030; J7040; J7120; A4216; C1769; C2617; G0463; J2405

== ENCOUNTER 2020-11-27 10:37 | Outpatient (RCR) | payer BC, MEDICARE, SELFPAY ==
[2020-11-20 12:05] LABS: Hemoglobin 10.4 g/dL (13.0-16.5); Mean Corp Hgb Conc 31.5 g/dL (32-36); Mean Corpuscular Hgb 23.6 pg (27.0-32.0); Mean Platelet Vol. 9.4 fl (6.2-12.0); Platelet Count 278 K/mm3 (150-450); RBC Distribution Width SD 43.4 fl (35.1-43.9); White Blood Count 6.9 K/mm3 (4.4-11.0)
[2020-11-20 12:12] LABS: Erythrocyte Sedimentation Rate 38 mm/hr (0-20)
[2020-11-20 12:17] LABS: Vancomycin, Trough Level 10.4 ug/mL (5.0-15.0)
[2020-11-20 12:19] LABS: ALB/GLOB Ratio 0.9 RATIO (0.9-2.4); AST(SGOT) 20 U/L (15-37); Alanine Aminotransfer ALT/SGPT 25 U/L (16-61); Albumin, Serum 3.2 g/dL (3.2-5.0); Alkaline Phosphatase 109 U/L (45-117); Anion Gap 8 (5-15); BUN 26 mg/dL (7-18); BUN/Creat Ratio 62.4 RATIO (10-20); Calcium,Total 8.7 mg/dL (8.5-10.1); Chloride 106 mmol/L (98-107); Creatinine, Serum 0.42 mg/dL (0.70-1.30); EST Glomerular Filtration Rate 227 mL/min (>60); Est Glom Filt Rate - Afr Amer 275 mL/min (>60); Globulin 3.5 g/dL (2.2-4.2); Glucose 77 mg/dL (74-106); Protein, Total 6.7 g/dL (6.4-8.2); Sodium Level 142 mmol/L (136-145)
[2020-11-27 10:48] LABS: Hematocrit 32.2 % (40-54); Mean Corp Hgb Conc 31.1 g/dL (32-36); Mean Corpuscular Hgb 23.4 pg (27.0-32.0); Mean Corpuscular Volume 75.4 fL (80-94); Mean Platelet Vol. 9.1 fl (6.2-12.0); Platelet Count 266 K/mm3 (150-450); RBC Distribution Width SD 43.7 fl (35.1-43.9); Red Blood Count 4.27 M/mm3 (4.6-6.2); White Blood Count 5.7 K/mm3 (4.4-11.0)
[2020-11-27 11:07] LABS: AST(SGOT) 19 U/L (15-37); Alanine Aminotransfer ALT/SGPT 27 U/L (16-61); Albumin, Serum 3.1 g/dL (3.2-5.0); Alkaline Phosphatase 120 U/L (45-117); Anion Gap 7 (5-15); BUN 23 mg/dL (7-18); BUN/Creat Ratio 47.7 RATIO (10-20); Calcium,Total 8.6 mg/dL (8.5-10.1); Chloride 107 mmol/L (98-107); Creatinine, Serum 0.48 mg/dL (0.70-1.30); EST Glomerular Filtration Rate 192 mL/min (>60); Est Glom Filt Rate - Afr Amer 232 mL/min (>60); Globulin 3.1 g/dL (2.2-4.2); Glucose 86 mg/dL (74-106); Potassium 3.9 mmol/L (3.5-5.1); Protein, Total 6.2 g/dL (6.4-8.2); Sodium Level 141 mmol/L (136-145)
== END 2020-12-11 23:59 ==
LOC: LABSPEC 10:37
PROVIDERS: PCP Preventive Medicine Occupational Medicine
DX: N20.1 Calculus of ureter (principal); A41.9 Sepsis, unspecified organism; N39.0 Urinary tract infection, site not specified
CPT/HCPCS: 80053; 80202; 85027; 85652

== ENCOUNTER 2020-11-30 13:59 | Day surgery (SDC) | payer BC, MEDICARE, SELFPAY ==
[2020-11-23 14:37] VITALS: BMI 22.4
[2020-11-30] MEDS: Cefazolin 2 GM in 0.9% Normal Saline 100 ML IV (07:00)
[2020-11-30 14:22] VITALS: BP 73/53; PULSE 102; RESP 16; TEMP 36.9; O2SAT 97; BMI 22.4
[2020-11-30] MEDS: Lactated Ringers 1,000 ML 100 ML IV (14:45)
--- NOTE | 2020-11-30 15:32 | PCM.HP.STD ---
HPI - General HPI Narrative ZORAIDA MOTA, is a 55 M who presents for laser of a stone in the right kidney [facility] Medical History (Updated 11/29/20 @ 09:48 by Tamia Caicedo) History of cervical fracture History of nephrolithotomy with removal of calculi History of rheumatic fever Hx of corrected cleft lip and palate Injury of head and neck MRSA infection Non-smoker Pressure ulcer Quadriplegia Uses wheelchair Wears partial dentures Home Medications ascorbic acid (vitamin C) [Vitamin C] 500 mg PO DAILY@0800 12/19/16 [History Last Taken 03/13/19] cholecalciferol (vitamin D3) [Vitamin D3] 1,000 unit PO DAILY 12/19/16 [History Last Taken 03/13/19] multivitamin [Daily Multiple] 1 ea PO DAILY 12/19/16 [History Last Taken 03/13/19] bisacodyl 10 mg RECTAL QODAY 11/29/20 [History Last Taken Unknown] zinc 1 tab PO DAILY 11/29/20 [History Last Taken Unknown] Allergy/AdvReac Type Severity Reaction Status Date / Time latex Allergy Rash Verified 11/30/20 14:21 linezolid [From Zyvox] Allergy Hives Verified 11/30/20 14:21 Penicillins Allergy Hives Verified 11/30/20 14:21 all tapes Allergy blisters Uncoded 11/30/20 14:21 Surgical History (Updated 11/16/20 @ 13:07 by Tamia Caicedo) History of myringotomy History of nephrostomy History of plastic surgery Social History Smoking Status: Never smoker Vital Signs Vital Signs Vital Signs: 11/30/20 14:22 Temperature 98.4 F Temperature Source Temporal Pulse Rate 102 H Respiratory Rate 16 Respiratory Pattern Normal Blood Pressure 73/53 L Blood Pressure Mean 59 Blood Pressure Source Monitor Blood Pressure Position Semi-Fowlers Blood Pressure Location Right Arm Pulse Ox 97 Oxygen Delivery Method Room Air Weight Weight: 61.235 kg Body Mass Index (BMI) 22.4 Physical Exam Const alert and oriented x3 General Appearance: cooperative HEENT normocephalic, head/scalp atraumatic, EAC's normal and TM's normal bilaterally Eyes PERRL and EOMs intact bilaterally Pupil: sluggish Neck no lymphadenopathy, supple and no JVD General: trachea midline Lymph Lymphatic: no lymphadenopathy noted, lymphedema and lymphadenopathy Resp normal respiratory effort, normal air movement and clear to auscultation bilaterally Cardio regular rate, regular rhythm and peripheral pulses 2+ throughout GI soft to palpation, non-tender and non-distended Extremity normal capillary refill and no clubbing, cyanosis or edema General Extremity: no tenderness to palpation of joints or extremities Skin no rashes or lesions noted General Skin Exam: turgor normal Lesions: no lesions Rashes: no rashes Neuro CN's II-XII intact bilaterally Speech: speech normal Motor Exam: strength 5/5 throughout; Negative for general weakness Psych thought process normal, cooperative and affect normal Appearance: appropriate Assessment & Plan Assessment/Plan (1) Right kidney stone:
--- NOTE | 2020-11-30 15:37 | PCM.DC ---
Discharge Instructions Diet Discharge Diet: No restrictions Activity Discharge Activity: Return to Normal Activity and May Not Drive (while taking narcotic pain medications.) Dressing / Incision Call your doctor if you observe: Fever of 101 or Higher Follow Up Care Please Follow Up With: Martín Carr MD When: Call [phone] for an appointment Test Results: Test results from this visit will be discussed in further detail at your follow-up appointment, if applicable. Discharge Plan Admission Primary Reason for Your Visit: Laser stone removal stent Attending Provider: Martín Carr Primary Care Provider: Alexander Mendoza Discharge Orders/Prescriptions Prescriptions: New oxycodone-acetaminophen 5-325 mg tablet 1 tab PO Q6H PRN (Reason: pain) 7 Days Qty: 7 RF: 0 Continued multivitamin [Daily Multiple] 1 EACH tablet 1 ea PO DAILY RF: 0 ascorbic acid (vitamin C) [Vitamin C] 500 MG tablet 500 mg PO DAILY@0800 RF: 0 cholecalciferol (vitamin D3) [Vitamin D3] 1,000 UNIT capsule 1,000 unit PO DAILY RF: 0 zinc Tablet,Chewable 1 tab PO DAILY RF: 0 bisacodyl 10 MG suppository 10 mg RECTAL QODAY RF: 0 Referrals / Follow Up: Martín Carr MD [STAFF PHYSICIAN] - Alexander Mendoza DO [Primary Care Provider] - Disposition Disposition (needs filled in before D/C Order can be placed): Home, Self Care
--- NOTE | 2020-11-30 16:10 | PCM.OPRPT ---
Report of Operation Date of Procedure: 11/30/20 Pre-Operative Diagnosis: Right renal calculi status post percutaneous procedure remaining fragment Post-Operative Diagnosis: Same same Surgery/Procedure Performed:: Cystoscopy removal right stent right ureteroscopy laser lithotripsy of stone in the right kidney no stent placed Description of Surgical Findings:: Indication is a 55-year-old male underwent a percutaneous procedure to remove stones from his kidney however after the procedure we did a CAT scan there was a small fragment that was not reached during the percutaneous procedure and because of this were given taken back for second stage procedure related to the prior procedure we can remove a stone fragment that was not treated on the prior procedure. Patient was taken back to the operating room at the smooth induction of general anesthesia he was placed in dorsolithotomy position when of the bladder with a 21 Moroc[place] rigid cystourethroscope once inside the bladder once inside the bladder I grabbed the existing stent from the right side pulled out the meatus and then through the stent advanced a wire up into the right kidney and then over the wire went in with a flexible ureteroscope I found a stone fragment in the upper pole of the right kidney and I then used a 275 ?m laser fiber most of the stone was very soft and broke up very fast but there was a small fragment in the center of the stone was quite hard and the stone fragment required increasing part of the laser and then was lasered completely. After dusting the stone completely the stone dust fragments should pass on her own work my way down the ureter no obstruction was seen along the course of the ureter bladder was then drained with a catheter patient anesthetic reversed and we will can see him back for follow-up in 4 to 6 weeks for checkup. Surgeon: cortez Type of Anesthesia: General Drains: none Admit VTE Documentation VTE Present on Admission: No VTE Mechan Device Prophylaxis: SCD's
[2020-11-30 16:24] VITALS: BP 73/53; BP 88/56; PULSE 89; RESP 18; TEMP 37.1; O2SAT 98
[2020-11-30 16:30] VITALS: BP 110/70; BP 73/53; PULSE 77; RESP 18; O2SAT 98
[2020-11-30 16:45] VITALS: BP 109/72; BP 73/53; PULSE 86; RESP 18; O2SAT 97
[2020-11-30 16:53] VITALS: BP 73/53; BP 96/74; PULSE 95; RESP 18; TEMP 36.8; O2SAT 96
[2020-11-30] MEDS: 0.9% NaCl PICC Flush IV (17:29)
[2020-11-30 17:30] VITALS: BP 73/53
== END 2020-11-30 17:42 | disposition home or self-care (01) ==
LOC: SDC 14:00 → AC 14:02
PROVIDERS: PCP Preventive Medicine Occupational Medicine; Visit Provider Urology
PROC: 0TJ98ZZ Inspection of Ureter, Via Natural or Artificial Opening Endoscopic (ICD-10-PCS; CPT 52352; principal; 2020-11-30 15:20)
DX: N20.0 Calculus of kidney (principal); G82.50 Quadriplegia, unspecified; Z86.14 Personal history of Methicillin resistant Staphylococcus aureus infection; Z87.730 Personal history of (corrected) cleft lip and palate
CPT/HCPCS: 00918; 52353; J7120; A4216; C1769

== ENCOUNTER 2020-12-31 10:30 | Outpatient (RCR) | payer BC, MEDICARE, SELFPAY ==
[2020-09-11 00:10] VITALS: BP 84/62; PULSE 97; RESP 18; TEMP 36.9
--- NOTE | 2020-11-02 10:58 | WC ---
patient called stating he went to [facility] for a kidney stone on his right side and while admitted, a surgeon debrided right ischial ulcer at bedside and removed bone for culture which was positive for MRSA. Patient is now home with PICC and on IV ertapenum and Vancomycin. He also has home health whom he's not sure who they are at this time. Patient will call in November to remind me to order dressing supplies from [facility].
[2020-11-23 14:37] VITALS: BMI 22.4
[2020-12-31 10:51] VITALS: BP 88/66; PULSE 90; TEMP 36.4; BMI 22.4
--- NOTE | 2020-12-31 13:04 | PN.PCM_ITS ---
History of Present Illness Date of Service: 12/31/20 Chief Complaint: Right ischial pressure sore, Stage IV. History of Wound: He had a hospitalization at [facility] in [place] October 06-October 16 for sepsis. When they were trying to figure out where the infection was coming from, they biopsied the bone in his ulcer which was positive for osteomyelitis, MRSA, and he was treated with IV antibiotics. His source of his infection was a large kidney stone which he needed a urostomy tube until the stone could be removed. Surgery 03/02/19 - Excision right ischial pressure sore, Stage IV, with partial ostectomy for osteomyelitis. Wound care - Dakin's covered with abdominal pad or super absorbant. Operative cultures - MRSA, Enterococcus faecalis, Morganella morganii, and Anaerobic cocci in the soft tissue and MRSA, Streptococcus anginosus, Morganella morganii, and Anaerobic cocci in the bone. He was started on IV Vancomycin, and Levaquin, and Flagyl. He has finished them. A wound culture was obtained on 08/06/20 due to him having some sweating issues. The culture was positive for Proteus mirabilis and MRSA. He was started on Bactrim DS. He completed the first round of antibiotics. He has decided not to get the refill at this time because he is feeling so much better. A wound culture was done on 06/20/19. It showed MRSA, Klebsiella oxytoca, Corynebacterium striatum, and Streptococcus mitis/oralis. He was placed on Clindamycin and Bactrim and has finished them. He wasn't feeling well and a wound culture was done on 08/15/19. It showed MRSA, Streptococcus mitis/oralis, Corynebacterium striatum, Corynebacterium minutissimum, and Anaerobic cocci. Urine culture on 08/15/19 showed Enterococcus faecalis and Staphylococcus epidermidis. He was placed on Doxycycline, Cleocin, Flagyl, and Macrodantin. Pathology - positive for osteomyelitis. Prealbumin from 03/14/19 was 19.3. Encourage nutritional supplementation with protein to help the healing process. Today he denies fever. His appetite is ok. He states that he has been having issues with perspiring on his left side like he does when he has an infection. Wound culture obtained today, 12/31/20. Progress of Wound: Stable Objective Data Objective Data Vital Signs: Vital Signs Temp Pulse Resp BP 97.5 F L 90 18 88/66 L 12/31/20 10:51 12/31/20 10:51 09/11/20 00:10 12/31/20 10:51 Body Mass Index (BMI) 22.4 Charges/Coding Procedures Integumentary 111xxx-113xx: 12038 Mirella musc/fascia 20 sq cm/< Add On Codes: 77802 Mirella musc/fascia add-on Physical Exam Const alert and oriented x3 General Appearance: cooperative HEENT normocephalic Eyes PERRL Resp normal respiratory effort Cardio regular rate Extremity normal capillary refill Skin Wound Narrative: Right ischial ulcer into the muscle. There is some bone exposure. Neuro CN's II-XII intact bilaterally Psych Appearance: grossly normal Debridement Note Debridement Note Wound debrided: Ischial ulcer Laterality: Right Wound Grade/Stage: Stage IV Type of Debridement: Excisional debridement Anesthesia Used: 4% Lidocaine Solution Depth: Down to and including healthy tissue, in the subcutaneous layer and to muscle Percentage of wound debrided: 100 Instrument Used: 7mm curette Tissue Removed: Subcutaneous tissue and slough Severity: Fat Layer Exposed Amount of bleeding with debridement: Mild Bleeding Controlled with: Pressure Patient tolerated procedure: Patient tolerated procedure well Post-Debridement Measurements and Additional Note: Post-Debridement Measurements/Treatment - Nurse 1 - General Ulcer Assessment Start: 12/31/20 10:51 Freq: Status: Active Protocol: [email or web address].[email or web address] Activity Type Activity Date Activity User E-Sign Co-Sign Detail Recorded Client Recorded Date Recorded By Document 12/31/20 10:51 ARMANI [id number] 12/31/20 10:59 ARMANI 12/31/20 10:51 - Today's Visit Information Type of service Follow-up Visit (Physician/[employer] ) Arrival Mode Wheelchair Patient Identification Verified (Name & Yes ) Height and Weight Body Mass Index (BMI) 22.4 BMI Classification Normal Vital Signs Temperature (97.8 F-99.1 F) 97.5 F L Temperature Source Temporal Pulse Rate (60-100) 90 Pulse Location Monitor Blood Pressure (90/60-120/80) 88/66 L Blood Pressure Mean (mm Hg) 73 Source Monitor Position Sitting Blood Pressure Location Left Arm History Since Last Visit- (Skip if this is Patient's initial visit) Have you changed medications since your No last visit? Any new allergies or adverse reactions No Had a fall/change in ADL's that may No increase risk of falls Signs or symptoms of abuse and/or No neglect since last visit Have you been in the hospital since your No last visit? Has dressing in place as prescribed Yes Has compression in place as prescribed N/A Has offloadiing in place as prescribed N/A Experienced any changes in pain level or No management Left Footwear Regular Shoe Right Footwear Regular Shoe Pain Scale: 0-10 Numeric Is Patient Pain Free? Yes SHAKA - Nurse 1 - General Ulcer Measurement Start: 12/31/20 10:51 Freq: Status: Active Protocol: Activity Type Activity Date Activity User E-Sign Co-Sign Detail Recorded Client Recorded Date Recorded By Document 12/31/20 10:51 ARMANI [id number] 12/31/20 10:59 ARMANI 12/31/20 10:51 Wound Center Nurse 1 #2 right ischium post op -Current Size (cm) - Length 7.4 -Current Size (cm) - Width 4.7 -Current Size (cm) - Depth 0.8 -Total Square Cm 34.78 -Undermining/Tunneling Starts (O'clock 6 ) -Undermining/Tunneling Ends (O'clock) 12 -Maximum Distance (cm) 0.4 -Exudate Amt Medium -Exudate Type Serosanguineous -Wound Margin Thickened & Rolled Under -Granulation Amt Medium (34-66%) -Granulation Quality Red -Necrosis Amt Medium (34-66%) -Necrotic Tissue Type Adherent Slough -Texture (Elizabeth-wound Skin Appearance) Assessed, Scarring -Moisture (Elizabeth-wound Skin Appearance) Assessed, Maceration -Color (Elizabeth-wound Skin Appearance) No Abnormality, Assessed -Temperature (Elizabeth-wound Skin No Abnormality Appearance) (Pt Warm) -Tenderness on Palpation (Elizabeth-wound No Skin Appearance) -Ulcer Cleansing Rinsed/ Irrigated with Saline -Foul Odor after Cleansing No -Anesthetic Used 5% Lidocaine Gel SHAKA - Nurse 2 - General Ulcer CM Notes Start: 12/31/20 10:51 Freq: Status: Active Protocol: Activity Type Activity Date Activity User E-Sign Co-Sign Detail Recorded Client Recorded Date Recorded By Document 12/31/20 11:11 LIANE [id number] 12/31/20 11:16 JF 12/31/20 11:11 Wound Center Nurse 2 -Time 11:11 -Correct Patient Yes -Correct Side, Site, Position Yes -Correct Procedure Yes -Procedure Performed Yes -Type of Procedure Debridement -Clinical Debridement Muscle / Fascia -Tissue Removed Muscle -Post Debridement (cm) - Length 6.7 -Post Debridement (cm) - Width 3.7 -Post Debridement (cm) - Depth 1.2 -Total Square (Post) (cm) 24.79 -Area of Debridement (cm) - Length 6.7 -Area of Debridement (cm) - Width 3.7 -Total Square (Area) (cm) 24.79 -Tunneling No -Undermining/Tunneling No -Circular Undermining No -Wound/Ulcer Outcome Not Healed -Ulcer Cleansing Rinsed/ Irrigated with Saline -Foul Odor after Cleansing No -Bioengineered Tissue No -Bleeding Controlled with Pressure -Offloading No -Treatment Response Procedure Tolerated Well -Debridement - Muscle / Fascia, 1st Yes 20sq cm -Debridement, Muscle/Fascia, ea addt'l 1 20sq cm or part thereof Pain Scale: 0-10 Numeric Is Patient Pain Free? Yes - Nurse 3 - General Ulcer D/C NN Start: 12/31/20 10:51 Freq: Status: Active Protocol: Activity Type Activity Date Activity User E-Sign Co-Sign Detail Recorded Client Recorded Date Recorded By Document 12/31/20 11:24 [id number] 12/31/20 11:28 DL 12/31/20 11:24 Wound Care Nurse 3 #2 right ischium post op -Ulcer Cleansing Rinsed/ Irrigated with Saline -Foul Odor after Cleansing No -Other Dressing moist drsg -Primary Dressing Covered/Secured with Dry Gauze, Secured with Tape Treatment Response Procedure Tolerated Well Pain Scale: 0-10 Numeric Is Patient Pain Free? 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 Wound culture obtained today, 12/31/20 due to him having symptoms of perspiration on the left side of his body, which he states he typically has an infection. Depending on the results of the culture, it may necessitate the need for treatment with antibiotics. When we have the results of the cultures, we will fax them to his ID physician, Dr. Ramirez at [facility]. Follow-up for reassessment in 4 weeks. Follow-up sooner should new or concerning symptoms arise. Wound culture obtained on 08/06/20 due to his complaints of intermittent fevers, sweating on his left side and increase spasm of his legs. The culture was positive for Proteus mirabilis and MRSA. He was started on Bactrim DS and completed 3 week course. He has finished the Doxycycline, Cleocin, Flagyl, and Macrodantin for wound culture on 08/15/19 that showed MRSA, Streptococcus mitis/oralis, Corynebacterium striatum, and Corynebacterium minutissimum, and Anaerobic cocci and for the urine culture that showed Enterococcus faecalis and Staphylococcus epidermidis. His soft tissue operative culture showed MRSA, Enterococcus faecalis, Morganella morganii, and Anaerobic cocci. His bone operative culture showed MRSA, Streptococcus anginosus, Morganella morganii, and Anaerobic cocci. He was placed on Vancomycin and Levaquin and Flagyl and has finished them. A wound culture was done on 06/20/19. It showed MRSA, Klebsiella oxytoca, Corynebacterium striatum, and Streptococcus mitis/oralis. He was placed on Clindamycin and Bactrim and has finished them. His Pathology was positive for osteomyelitis. With the recent diagnosis of osteomyelitis, he would be a candidate for HBO. He will think about it and let us know. A CT Pelvis was done on 11/07/17. It was suspicious for osteomyelitis. A repeat CT Pelvis was done on 05/17/18. Once again osteomyelitis is suspected and cannot be ruled out. Prealbumin from 03/14 was 19.3. Encourage nutritional supplementation with protein to help the healing process. He is still deciding about a muscle flap at some point in the future. Once again it was discussed with him and his family that the pressure sore in this area rarely heals without a muscle flap especially a Stage IV pressure sore involving the bone.
== END 2021-01-10 23:59 ==
LOC: WC 10:30
PROVIDERS: Family Provider Preventive Medicine Occupational Medicine; PCP Preventive Medicine Occupational Medicine; Referring Provider Nurse Practitioner Family; Visit Provider Nurse Practitioner Family
DX: L89.314 Pressure ulcer of right buttock, stage 4 (principal); M86.9 Osteomyelitis, unspecified; B95.62 Methicillin resistant Staphylococcus aureus infection as the cause of diseases classified elsewhere; B96.4 Proteus (mirabilis) (morganii) as the cause of diseases classified elsewhere; B95.2 Enterococcus as the cause of diseases classified elsewhere; G82.20 Paraplegia, unspecified; M62.3 Immobility syndrome (paraplegic); N20.0 Calculus of kidney; Z79.899 Other long term (current) drug therapy
CPT/HCPCS: 11043; 11046; 87070; 87075; 87077; 87186; 87205

== ENCOUNTER 2021-02-07 11:45 | Outpatient (RCR) | payer BC, MEDICARE, SELFPAY ==
[2020-12-12 00:39] VITALS: BMI 22.2
[2021-01-23 11:03] LABS: Hematocrit 32.9 % (40-54); Hemoglobin 10.2 g/dL (13.0-16.5); Mean Corpuscular Hgb 23.3 pg (27.0-32.0); Mean Corpuscular Volume 75.3 fL (80-94); Mean Platelet Vol. 8.9 fl (6.2-12.0); Platelet Count 306 K/mm3 (150-450); RBC Distribution Width CV 15.8 % (11.6-14.6); RBC Distribution Width SD 42.8 fl (35.1-43.9); Red Blood Count 4.37 M/mm3 (4.6-6.2); White Blood Count 7.8 K/mm3 (4.4-11.0)
[2021-01-23 11:13] LABS: Anion Gap 8 (5-15); BUN 23 mg/dL (7-18); BUN/Creat Ratio 66.3 RATIO (10-20); Chloride 108 mmol/L (98-107); Creatinine, Serum 0.35 mg/dL (0.70-1.30); EST Glomerular Filtration Rate 280 mL/min (>60); Est Glom Filt Rate - Afr Amer 339 mL/min (>60); Glucose 90 mg/dL (74-106); Potassium 4.1 mmol/L (3.5-5.1); Sodium Level 141 mmol/L (136-145)
[2021-01-23 11:25] LABS: Vancomycin, Trough Level 13.3 ug/mL (5.0-15.0)
[2021-02-07 12:10] LABS: Hematocrit 33.4 % (40-54); Hemoglobin 10.3 g/dL (13.0-16.5); Mean Corp Hgb Conc 30.8 g/dL (32-36); Mean Corpuscular Hgb 23.6 pg (27.0-32.0); Mean Corpuscular Volume 76.6 fL (80-94); Mean Platelet Vol. 9.6 fl (6.2-12.0); Platelet Count 254 K/mm3 (150-450); RBC Distribution Width CV 15.2 % (11.6-14.6); RBC Distribution Width SD 42.2 fl (35.1-43.9); Red Blood Count 4.36 M/mm3 (4.6-6.2); White Blood Count 7.2 K/mm3 (4.4-11.0)
[2021-02-07 12:16] LABS: Erythrocyte Sedimentation Rate 34 mm/hr (0-20)
[2021-02-07 12:30] LABS: Vancomycin, Trough Level 7.5 ug/mL (5.0-15.0)
[2021-02-07 12:33] LABS: ALB/GLOB Ratio 0.9 RATIO (0.9-2.4); AST(SGOT) 14 U/L (15-37); Alanine Aminotransfer ALT/SGPT 19 U/L (16-61); Albumin, Serum 3.3 g/dL (3.2-5.0); Alkaline Phosphatase 124 U/L (45-117); Anion Gap 8 (5-15); BUN 22 mg/dL (7-18); BUN/Creat Ratio 60.3 RATIO (10-20); Calcium,Total 8.9 mg/dL (8.5-10.1); Chloride 107 mmol/L (98-107); Creatinine, Serum 0.36 mg/dL (0.70-1.30); EST Glomerular Filtration Rate 264 mL/min (>60); Est Glom Filt Rate - Afr Amer 320 mL/min (>60); Globulin 3.5 g/dL (2.2-4.2); Glucose 92 mg/dL (74-106); Potassium 4.3 mmol/L (3.5-5.1); Protein, Total 6.8 g/dL (6.4-8.2); Sodium Level 141 mmol/L (136-145)
== END 2021-02-10 02:37 | disposition home or self-care (01) ==
LOC: HHLAB 11:45
PROVIDERS: PCP Preventive Medicine Occupational Medicine
DX: M86.8X9 Other osteomyelitis, unspecified sites (principal)
CPT/HCPCS: 80048; 80053; 80202; 85027; 85652

== ENCOUNTER → 2021-02-21 | Outpatient (CLI) | payer BC, SELFPAY ==
[2021-02-21 11:51] LABS: Erythrocyte Sedimentation Rate 38 mm/hr (0-20)
[2021-02-21 11:56] LABS: Hemoglobin 11.2 g/dL (13.0-16.5); Mean Corp Hgb Conc 31.1 g/dL (32-36); Mean Corpuscular Hgb 23.6 pg (27.0-32.0); Mean Corpuscular Volume 75.8 fL (80-94); Mean Platelet Vol. 9.8 fl (6.2-12.0); Platelet Count 268 K/mm3 (150-450); RBC Distribution Width CV 14.4 % (11.6-14.6); RBC Distribution Width SD 39.5 fl (35.1-43.9); Red Blood Count 4.75 M/mm3 (4.6-6.2); White Blood Count 5.8 K/mm3 (4.4-11.0)
[2021-02-21 12:02] LABS: ALB/GLOB Ratio 0.9 RATIO (0.9-2.4); AST(SGOT) 14 U/L (15-37); Alanine Aminotransfer ALT/SGPT 20 U/L (16-61); Albumin, Serum 3.4 g/dL (3.2-5.0); Alkaline Phosphatase 125 U/L (45-117); Anion Gap 10 (5-15); BUN 27 mg/dL (7-18); BUN/Creat Ratio 64.4 RATIO (10-20); Calcium,Total 8.9 mg/dL (8.5-10.1); Chloride 105 mmol/L (98-107); Creatinine, Serum 0.42 mg/dL (0.70-1.30); EST Glomerular Filtration Rate 226 mL/min (>60); Est Glom Filt Rate - Afr Amer 273 mL/min (>60); Globulin 3.8 g/dL (2.2-4.2); Glucose 95 mg/dL (74-106); Potassium 4.1 mmol/L (3.5-5.1); Protein, Total 7.2 g/dL (6.4-8.2); Sodium Level 141 mmol/L (136-145); Vancomycin, Trough Level 8.3 ug/mL (5.0-15.0)
== END | disposition home or self-care (01) ==
PROVIDERS: PCP Preventive Medicine Occupational Medicine; Referring Provider Preventive Medicine Occupational Medicine; Visit Provider Preventive Medicine Occupational Medicine
DX: M46.28 Osteomyelitis of vertebra, sacral and sacrococcygeal region (principal)
CPT/HCPCS: 80053; 80202; 85027; 85652

== ENCOUNTER 2021-03-04 09:52 | Outpatient (RCR) | payer BC, MEDICARE, SELFPAY ==
[2021-02-10 02:38] VITALS: BMI 22.2
[2021-02-11 12:09] LABS: Hematocrit 37.6 % (40-54); Hemoglobin 11.5 g/dL (13.0-16.5); Mean Corp Hgb Conc 30.6 g/dL (32-36); Mean Corpuscular Hgb 23.6 pg (27.0-32.0); Mean Platelet Vol. 10.6 fl (6.2-12.0); Platelet Count 231 K/mm3 (150-450); RBC Distribution Width SD 41.6 fl (35.1-43.9); Red Blood Count 4.88 M/mm3 (4.6-6.2); White Blood Count 6.7 K/mm3 (4.4-11.0)
[2021-02-11 12:17] LABS: Erythrocyte Sedimentation Rate 24 mm/hr (0-20)
[2021-02-11 12:26] LABS: Vancomycin, Trough Level 9.8 ug/mL (5.0-15.0)
[2021-02-11 12:28] LABS: ALB/GLOB Ratio 0.9 RATIO (0.9-2.4); AST(SGOT) 16 U/L (15-37); Alanine Aminotransfer ALT/SGPT 20 U/L (16-61); Albumin, Serum 3.6 g/dL (3.2-5.0); Alkaline Phosphatase 127 U/L (45-117); Anion Gap 9 (5-15); BUN 25 mg/dL (7-18); BUN/Creat Ratio 55.9 RATIO (10-20); Calcium,Total 9.2 mg/dL (8.5-10.1); Chloride 105 mmol/L (98-107); Creatinine, Serum 0.45 mg/dL (0.70-1.30); EST Glomerular Filtration Rate 209 mL/min (>60); Est Glom Filt Rate - Afr Amer 253 mL/min (>60); Globulin 3.9 g/dL (2.2-4.2); Glucose 87 mg/dL (74-106); Protein, Total 7.5 g/dL (6.4-8.2); Sodium Level 141 mmol/L (136-145)
[2021-02-18 13:34] LABS: Hematocrit 37.4 % (40-54); Hemoglobin 11.5 g/dL (13.0-16.5); Mean Corp Hgb Conc 30.7 g/dL (32-36); Mean Corpuscular Hgb 23.7 pg (27.0-32.0); Mean Corpuscular Volume 77.1 fL (80-94); Mean Platelet Vol. 9.5 fl (6.2-12.0); Platelet Count 290 K/mm3 (150-450); RBC Distribution Width CV 14.6 % (11.6-14.6); RBC Distribution Width SD 40.7 fl (35.1-43.9); Red Blood Count 4.85 M/mm3 (4.6-6.2); White Blood Count 6.5 K/mm3 (4.4-11.0)
[2021-02-18 13:49] LABS: Vancomycin, Trough Level 8.5 ug/mL (5.0-15.0)
[2021-02-18 13:50] LABS: ALB/GLOB Ratio 0.9 RATIO (0.9-2.4); AST(SGOT) 18 U/L (15-37); Alanine Aminotransfer ALT/SGPT 20 U/L (16-61); Albumin, Serum 3.5 g/dL (3.2-5.0); Alkaline Phosphatase 130 U/L (45-117); Anion Gap 8 (5-15); BUN 25 mg/dL (7-18); BUN/Creat Ratio 53.6 RATIO (10-20); Calcium,Total 8.9 mg/dL (8.5-10.1); Chloride 106 mmol/L (98-107); Creatinine, Serum 0.47 mg/dL (0.70-1.30); EST Glomerular Filtration Rate 200 mL/min (>60); Est Glom Filt Rate - Afr Amer 241 mL/min (>60); Glucose 131 mg/dL (74-106); Potassium 3.8 mmol/L (3.5-5.1); Protein, Total 7.5 g/dL (6.4-8.2); Sodium Level 141 mmol/L (136-145)
[2021-02-18 13:56] LABS: Erythrocyte Sedimentation Rate 32 mm/hr (0-20)
[2021-02-28 11:16] LABS: ALB/GLOB Ratio 0.8 RATIO (0.9-2.4); AST(SGOT) 10 U/L (15-37); Alanine Aminotransfer ALT/SGPT 18 U/L (16-61); Alkaline Phosphatase 119 U/L (45-117); Anion Gap 7 (5-15); BUN 28 mg/dL (7-18); BUN/Creat Ratio 66.4 RATIO (10-20); Calcium,Total 8.9 mg/dL (8.5-10.1); Chloride 109 mmol/L (98-107); Creatinine, Serum 0.42 mg/dL (0.70-1.30); EST Glomerular Filtration Rate 224 mL/min (>60); Est Glom Filt Rate - Afr Amer 271 mL/min (>60); Globulin 3.6 g/dL (2.2-4.2); Glucose 89 mg/dL (74-106); Potassium 4.2 mmol/L (3.5-5.1); Protein, Total 6.6 g/dL (6.4-8.2); Sodium Level 141 mmol/L (136-145)
[2021-02-28 11:20] LABS: Vancomycin, Random Level 11.4 ug/mL (0.0-15.0)
[2021-02-28 11:21] LABS: Erythrocyte Sedimentation Rate 29 mm/hr (0-20)
[2021-02-28 11:23] LABS: Hematocrit 33.9 % (40-54); Hemoglobin 10.4 g/dL (13.0-16.5); Mean Corp Hgb Conc 30.7 g/dL (32-36); Mean Corpuscular Hgb 23.3 pg (27.0-32.0); Mean Corpuscular Volume 75.8 fL (80-94); Mean Platelet Vol. 9.6 fl (6.2-12.0); Platelet Count 243 K/mm3 (150-450); RBC Distribution Width CV 14.5 % (11.6-14.6); RBC Distribution Width SD 39.5 fl (35.1-43.9); Red Blood Count 4.47 M/mm3 (4.6-6.2); White Blood Count 5.3 K/mm3 (4.4-11.0)
[2021-03-04 10:01] LABS: Hematocrit 34.6 % (40-54); Hemoglobin 10.7 g/dL (13.0-16.5); Mean Corp Hgb Conc 30.9 g/dL (32-36); Mean Corpuscular Hgb 23.3 pg (27.0-32.0); Mean Corpuscular Volume 75.4 fL (80-94); Mean Platelet Vol. 9.5 fl (6.2-12.0); Platelet Count 269 K/mm3 (150-450); RBC Distribution Width CV 14.4 % (11.6-14.6); RBC Distribution Width SD 39.1 fl (35.1-43.9); Red Blood Count 4.59 M/mm3 (4.6-6.2); White Blood Count 7.1 K/mm3 (4.4-11.0)
[2021-03-04 10:26] LABS: Erythrocyte Sedimentation Rate 32 mm/hr (0-20)
[2021-03-04 10:28] LABS: ALB/GLOB Ratio 0.8 RATIO (0.9-2.4); AST(SGOT) 18 U/L (15-37); Alanine Aminotransfer ALT/SGPT 20 U/L (16-61); Albumin, Serum 3.2 g/dL (3.2-5.0); Alkaline Phosphatase 135 U/L (45-117); Anion Gap 6 (5-15); BUN 22 mg/dL (7-18); BUN/Creat Ratio 50.1 RATIO (10-20); Calcium,Total 8.8 mg/dL (8.5-10.1); Chloride 108 mmol/L (98-107); Creatinine, Serum 0.44 mg/dL (0.70-1.30); EST Glomerular Filtration Rate 214 mL/min (>60); Est Glom Filt Rate - Afr Amer 259 mL/min (>60); Globulin 3.8 g/dL (2.2-4.2); Glucose 82 mg/dL (74-106); Potassium 3.8 mmol/L (3.5-5.1); Sodium Level 141 mmol/L (136-145); Vancomycin, Trough Level 11.3 ug/mL (5.0-15.0)
== END 2021-03-12 23:59 ==
LOC: HHLAB 09:52
PROVIDERS: PCP Preventive Medicine Occupational Medicine
DX: M86.8X9 Other osteomyelitis, unspecified sites (principal)
CPT/HCPCS: 80053; 80202; 85027; 85652

== ENCOUNTER → 2021-07-15 15:46 | Outpatient (CLI) | payer BC, MEDICARE, SELFPAY ==
[2021-07-15 17:01] LABS: Absolute Lymphocyte Count 1.43 X10^3/uL (0.83-4.51); Absolute Neutrophil Count 5.9 X10^3/uL (2.0-7.7); Basophil# 0.05 X10^3/uL; Basophil% 0.6 % (0-1); Eosinophil# 0.49 X10^3/uL; Eosinophils% 5.7 % (0-5); Hematocrit 32.6 % (40-54); Hemoglobin 10.1 g/dL (13.0-16.5); Lymphocyte # 1.43 X10^3/ul (0.83-4.51); Lymphocyte % 16.6 % (19-41); Mean Corpuscular Hgb 22.3 pg (27.0-32.0); Mean Corpuscular Volume 72.1 fL (80-94); Mean Platelet Vol. 8.8 fl (6.2-12.0); Monocyte# 0.67 X10^3/uL; Monocyte% 7.8 % (0-10); NRBC Flagged by Analyzer 0 % (0-5); Neutrophil # 5.94 X10^3/uL (2.7-7.7); Neutrophil % 68.8 % (47-70); Platelet Count 319 K/mm3 (150-450); RBC Distribution Width CV 18.7 % (11.6-14.6); RBC Distribution Width SD 48.2 fl (35.1-43.9); Red Blood Count 4.52 M/mm3 (4.6-6.2); White Blood Count 8.6 K/mm3 (4.4-11.0)
[2021-07-15 17:09] LABS: ALB/GLOB Ratio 0.8 RATIO (0.9-2.4); AST(SGOT) 16 U/L (15-37); Alanine Aminotransfer ALT/SGPT 42 U/L (16-61); Alkaline Phosphatase 114 U/L (45-117); Anion Gap 10 (5-15); BUN 27 mg/dL (7-18); BUN/Creat Ratio 50.8 RATIO (10-20); Calcium,Total 8.6 mg/dL (8.5-10.1); Chloride 108 mmol/L (98-107); Creatinine, Serum 0.53 mg/dL (0.70-1.30); EST Glomerular Filtration Rate 171 mL/min (>60); Est Glom Filt Rate - Afr Amer 207 mL/min (>60); Globulin 3.7 g/dL (2.2-4.2); Glucose 143 mg/dL (74-106); Potassium 3.6 mmol/L (3.5-5.1); Protein, Total 6.7 g/dL (6.4-8.2); Sodium Level 141 mmol/L (136-145)
[2021-07-15 17:34] LABS: Erythrocyte Sedimentation Rate 57 mm/hr (0-20)
== END ==
PROVIDERS: PCP Preventive Medicine Occupational Medicine
DX: Z45.2 Encounter for adjustment and management of vascular access device (principal)
CPT/HCPCS: 80053; 80202; 85025; 85652; 86140

== ENCOUNTER 2021-07-18 11:04 | Outpatient (CLI) | payer BC, MEDICARE, SELFPAY ==
[2021-07-18 11:39] LABS: Albumin, Serum 3.2 g/dL (3.2-5.0); BUN 30 mg/dL (7-18); Calcium,Total 8.6 mg/dL (8.5-10.1); Chloride 107 mmol/L (98-107); Creatinine, Serum 0.38 mg/dL (0.70-1.30); EST Glomerular Filtration Rate 256 mL/min (>60); Est Glom Filt Rate - Afr Amer 310 mL/min (>60); Glucose 94 mg/dL (74-106); Phosphorus 3.7 mg/dL (2.5-4.9); Potassium 4.4 mmol/L (3.5-5.1); Sodium Level 138 mmol/L (136-145)
[2021-07-18 11:41] LABS: Vancomycin, Trough Level 9.7 ug/mL (5.0-15.0)
== END 2021-07-18 23:59 | disposition home or self-care (01) ==
PROVIDERS: PCP Preventive Medicine Occupational Medicine; Referring Provider Preventive Medicine Occupational Medicine; Visit Provider Preventive Medicine Occupational Medicine
DX: Z45.2 Encounter for adjustment and management of vascular access device (principal)
CPT/HCPCS: 80069; 80202

== ENCOUNTER 2021-07-22 16:47 | Outpatient (RCR) | payer BC, MEDICARE, SELFPAY ==
[2021-03-13 00:11] VITALS: BMI 22.2
[2021-07-22 17:09] LABS: Absolute Lymphocyte Count 1.44 X10^3/uL (0.83-4.51); Absolute Neutrophil Count 4.5 X10^3/uL (2.0-7.7); Basophil# 0.07 X10^3/uL; Eosinophil# 0.44 X10^3/uL; Eosinophils% 6.3 % (0-5); Hematocrit 34.6 % (40-54); Hemoglobin 10.9 g/dL (13.0-16.5); Lymphocyte # 1.44 X10^3/ul (0.83-4.51); Lymphocyte % 20.6 % (19-41); Mean Corp Hgb Conc 31.5 g/dL (32-36); Mean Corpuscular Hgb 22.3 pg (27.0-32.0); Mean Corpuscular Volume 70.9 fL (80-94); Mean Platelet Vol. 8.8 fl (6.2-12.0); Monocyte# 0.54 X10^3/uL; Monocyte% 7.7 % (0-10); NRBC Flagged by Analyzer 0 % (0-5); Neutrophil # 4.49 X10^3/uL (2.7-7.7); Neutrophil % 64.1 % (47-70); Platelet Count 335 K/mm3 (150-450); RBC Distribution Width CV 17.8 % (11.6-14.6); RBC Distribution Width SD 45.2 fl (35.1-43.9); Red Blood Count 4.88 M/mm3 (4.6-6.2)
[2021-07-22 17:15] LABS: CRP 4.87 mg/L (0.0-3.0); Vancomycin, Trough Level 7.4 ug/mL (5.0-15.0)
[2021-07-22 17:34] LABS: Erythrocyte Sedimentation Rate 34 mm/hr (0-20)
[2021-07-24 11:01] LABS: AST(SGOT) 19 U/L (15-37); Alanine Aminotransfer ALT/SGPT 29 U/L (16-61); Albumin, Serum 3.4 g/dL (3.2-5.0); Alkaline Phosphatase 106 U/L (45-117); Anion Gap 7 (5-15); BUN 29 mg/dL (7-18); Calcium,Total 8.6 mg/dL (8.5-10.1); Chloride 107 mmol/L (98-107); Creatinine, Serum 0.53 mg/dL (0.70-1.30); EST Glomerular Filtration Rate 173 mL/min (>60); Est Glom Filt Rate - Afr Amer 209 mL/min (>60); Globulin 3.5 g/dL (2.2-4.2); Glucose 134 mg/dL (74-106); Potassium 4.9 mmol/L (3.5-5.1); Protein, Total 6.9 g/dL (6.4-8.2); Sodium Level 137 mmol/L (136-145)
== END 2021-08-10 23:59 ==
LOC: HHLAB 16:47
PROVIDERS: PCP Preventive Medicine Occupational Medicine
DX: M86.8X9 Other osteomyelitis, unspecified sites (principal)
CPT/HCPCS: 80053; 80202; 85025; 85652; 86140

== ENCOUNTER → 2021-07-25 15:40 | Outpatient (CLI) | payer BC, MEDICARE, SELFPAY ==
[2021-07-25 17:02] LABS: Vancomycin, Trough Level 8.6 ug/mL (5.0-15.0)
== END ==
PROVIDERS: PCP Preventive Medicine Occupational Medicine
DX: Z45.2 Encounter for adjustment and management of vascular access device (principal)
CPT/HCPCS: 80202

== ENCOUNTER 2021-08-08 15:00 | Outpatient (RCR) | payer BC, MEDICARE, SELFPAY ==
[2021-07-29 16:27] LABS: Absolute Lymphocyte Count 1.14 X10^3/uL (0.83-4.51); Absolute Neutrophil Count 4.8 X10^3/uL (2.0-7.7); Basophil# 0.04 X10^3/uL; Basophil% 0.6 % (0-1); Eosinophil# 0.54 X10^3/uL; Eosinophils% 7.8 % (0-5); Hematocrit 35.2 % (40-54); Lymphocyte # 1.14 X10^3/ul (0.83-4.51); Lymphocyte % 16.4 % (19-41); Mean Corp Hgb Conc 31.3 g/dL (32-36); Mean Corpuscular Hgb 22.3 pg (27.0-32.0); Mean Corpuscular Volume 71.3 fL (80-94); Mean Platelet Vol. 9.2 fl (6.2-12.0); Monocyte# 0.38 X10^3/uL; Monocyte% 5.5 % (0-10); NRBC Flagged by Analyzer 0 % (0-5); Neutrophil # 4.83 X10^3/uL (2.7-7.7); Neutrophil % 69.4 % (47-70); Platelet Count 332 K/mm3 (150-450); RBC Distribution Width CV 17.2 % (11.6-14.6); RBC Distribution Width SD 44.1 fl (35.1-43.9); Red Blood Count 4.94 M/mm3 (4.6-6.2)
[2021-07-29 16:40] LABS: ALB/GLOB Ratio 1.2 RATIO (0.9-2.4); AST(SGOT) 20 U/L (15-37); Alanine Aminotransfer ALT/SGPT 37 U/L (16-61); Albumin, Serum 3.5 g/dL (3.2-5.0); Alkaline Phosphatase 119 U/L (45-117); Anion Gap 10 (5-15); BUN 34 mg/dL (7-18); BUN/Creat Ratio 65.5 RATIO (10-20); CRP 5.87 mg/L (0.0-3.0); Calcium,Total 8.5 mg/dL (8.5-10.1); Chloride 107 mmol/L (98-107); Creatinine, Serum 0.52 mg/dL (0.70-1.30); EST Glomerular Filtration Rate 176 mL/min (>60); Est Glom Filt Rate - Afr Amer 213 mL/min (>60); Glucose 204 mg/dL (74-106); Potassium 4.2 mmol/L (3.5-5.1); Protein, Total 6.5 g/dL (6.4-8.2); Sodium Level 140 mmol/L (136-145)
[2021-07-29 16:50] LABS: Vancomycin, Trough Level 13.7 ug/mL (5.0-15.0)
[2021-07-29 16:57] LABS: Erythrocyte Sedimentation Rate 31 mm/hr (0-20)
[2021-08-01 16:42] LABS: Vancomycin, Trough Level 13.1 ug/mL (5.0-15.0)
[2021-08-05 17:23] LABS: Absolute Lymphocyte Count 1.09 X10^3/uL (0.83-4.51); Absolute Neutrophil Count 4.2 X10^3/uL (2.0-7.7); Basophil# 0.05 X10^3/uL; Basophil% 0.8 % (0-1); Eosinophil# 0.54 X10^3/uL; Eosinophils% 8.6 % (0-5); Hematocrit 35.2 % (40-54); Hemoglobin 10.8 g/dL (13.0-16.5); Lymphocyte # 1.09 X10^3/ul (0.83-4.51); Lymphocyte % 17.4 % (19-41); Mean Corp Hgb Conc 30.7 g/dL (32-36); Mean Corpuscular Hgb 22.3 pg (27.0-32.0); Mean Corpuscular Volume 72.7 fL (80-94); Mean Platelet Vol. 9.4 fl (6.2-12.0); Monocyte% 6.4 % (0-10); NRBC Flagged by Analyzer 0 % (0-5); Neutrophil # 4.17 X10^3/uL (2.7-7.7); Neutrophil % 66.5 % (47-70); Platelet Count 284 K/mm3 (150-450); RBC Distribution Width CV 16.7 % (11.6-14.6); RBC Distribution Width SD 43.3 fl (35.1-43.9); Red Blood Count 4.84 M/mm3 (4.6-6.2); White Blood Count 6.3 K/mm3 (4.4-11.0)
[2021-08-05 17:53] LABS: Erythrocyte Sedimentation Rate 24 mm/hr (0-20)
[2021-08-05 18:52] LABS: ALB/GLOB Ratio 1.2 RATIO (0.9-2.4); AST(SGOT) 20 U/L (15-37); Alanine Aminotransfer ALT/SGPT 39 U/L (16-61); Albumin, Serum 3.5 g/dL (3.2-5.0); Alkaline Phosphatase 116 U/L (45-117); Anion Gap 9 (5-15); BUN 28 mg/dL (7-18); BUN/Creat Ratio 49.6 RATIO (10-20); CRP 4.23 mg/L (0.0-3.0); Calcium,Total 8.5 mg/dL (8.5-10.1); Chloride 109 mmol/L (98-107); Creatinine, Serum 0.56 mg/dL (0.70-1.30); EST Glomerular Filtration Rate 159 mL/min (>60); Est Glom Filt Rate - Afr Amer 193 mL/min (>60); Glucose 204 mg/dL (74-106); Potassium 3.9 mmol/L (3.5-5.1); Protein, Total 6.5 g/dL (6.4-8.2); Sodium Level 141 mmol/L (136-145)
[2021-08-05 18:55] LABS: Vancomycin, Trough Level 12.6 ug/mL (5.0-15.0)
== END 2021-08-10 23:59 ==
LOC: LABSPEC 15:00
PROVIDERS: PCP Preventive Medicine Occupational Medicine
DX: Z45.2 Encounter for adjustment and management of vascular access device (principal)
CPT/HCPCS: 80053; 80202; 85025; 85652; 86140

== ENCOUNTER 2021-08-15 15:00 | Outpatient (RCR) | payer BC, MEDICARE, SELFPAY ==
[2021-08-12 17:05] LABS: Absolute Lymphocyte Count 1.31 X10^3/uL (0.83-4.51); Absolute Neutrophil Count 6.9 X10^3/uL (2.0-7.7); Basophil# 0.07 X10^3/uL; Basophil% 0.7 % (0-1); Eosinophil# 0.52 X10^3/uL; Eosinophils% 5.5 % (0-5); Hematocrit 37.9 % (40-54); Hemoglobin 11.4 g/dL (13.0-16.5); Lymphocyte # 1.31 X10^3/ul (0.83-4.51); Lymphocyte % 13.8 % (19-41); Mean Corp Hgb Conc 30.1 g/dL (32-36); Mean Corpuscular Hgb 21.6 pg (27.0-32.0); Mean Corpuscular Volume 71.8 fL (80-94); Mean Platelet Vol. 9.4 fl (6.2-12.0); Monocyte# 0.63 X10^3/uL; Monocyte% 6.6 % (0-10); NRBC Flagged by Analyzer 0 % (0-5); Neutrophil # 6.94 X10^3/uL (2.7-7.7); Neutrophil % 73.1 % (47-70); Platelet Count 313 K/mm3 (150-450); RBC Distribution Width SD 41.9 fl (35.1-43.9); Red Blood Count 5.28 M/mm3 (4.6-6.2); White Blood Count 9.5 K/mm3 (4.4-11.0)
[2021-08-12 17:19] LABS: Erythrocyte Sedimentation Rate 28 mm/hr (0-20)
[2021-08-12 17:26] LABS: Vancomycin, Trough Level 11.7 ug/mL (5.0-15.0)
[2021-08-12 17:29] LABS: ALB/GLOB Ratio 1.2 RATIO (0.9-2.4); AST(SGOT) 23 U/L (15-37); Alanine Aminotransfer ALT/SGPT 46 U/L (16-61); Albumin, Serum 3.7 g/dL (3.2-5.0); Alkaline Phosphatase 133 U/L (45-117); Anion Gap 9 (5-15); BUN 28 mg/dL (7-18); BUN/Creat Ratio 71.1 RATIO (10-20); Calcium,Total 8.8 mg/dL (8.5-10.1); Chloride 105 mmol/L (98-107); Creatinine, Serum 0.39 mg/dL (0.70-1.30); EST Glomerular Filtration Rate 242 mL/min (>60); Est Glom Filt Rate - Afr Amer 292 mL/min (>60); Globulin 3.1 g/dL (2.2-4.2); Glucose 109 mg/dL (74-106); Potassium 4.1 mmol/L (3.5-5.1); Protein, Total 6.8 g/dL (6.4-8.2); Sodium Level 137 mmol/L (136-145)
[2021-08-15 17:00] LABS: Vancomycin, Trough Level 12.6 ug/mL (5.0-15.0)
== END 2021-09-10 23:59 ==
LOC: LABSPEC 15:00
PROVIDERS: PCP Preventive Medicine Occupational Medicine
DX: Z45.2 Encounter for adjustment and management of vascular access device (principal)
CPT/HCPCS: 80053; 80202; 85025; 85652; 86140

== ENCOUNTER 2021-08-19 15:28 | Outpatient (RCR) | payer BC, MEDICARE, SELFPAY ==
[2021-08-11 00:05] VITALS: BMI 22.2
[2021-08-19 16:31] LABS: Absolute Lymphocyte Count 1.16 X10^3/uL (0.83-4.51); Absolute Neutrophil Count 4.6 X10^3/uL (2.0-7.7); Basophil# 0.06 X10^3/uL; Basophil% 0.9 % (0-1); Eosinophil# 0.44 X10^3/uL; Eosinophils% 6.3 % (0-5); Hematocrit 35.3 % (40-54); Lymphocyte # 1.16 X10^3/ul (0.83-4.51); Lymphocyte % 16.6 % (19-41); Mean Corp Hgb Conc 31.2 g/dL (32-36); Mean Corpuscular Hgb 22.2 pg (27.0-32.0); Mean Corpuscular Volume 71.2 fL (80-94); Mean Platelet Vol. 9.5 fl (6.2-12.0); Monocyte# 0.72 X10^3/uL; Monocyte% 10.3 % (0-10); NRBC Flagged by Analyzer 0 % (0-5); Neutrophil # 4.58 X10^3/uL (2.7-7.7); Neutrophil % 65.8 % (47-70); Platelet Count 321 K/mm3 (150-450); RBC Distribution Width CV 15.8 % (11.6-14.6); RBC Distribution Width SD 40.2 fl (35.1-43.9); Red Blood Count 4.96 M/mm3 (4.6-6.2)
[2021-08-19 16:45] LABS: Erythrocyte Sedimentation Rate 25 mm/hr (0-20)
[2021-08-19 16:48] LABS: Vancomycin, Trough Level 11.3 ug/mL (5.0-15.0)
[2021-08-19 16:54] LABS: ALB/GLOB Ratio 1.2 RATIO (0.9-2.4); AST(SGOT) 20 U/L (15-37); Alanine Aminotransfer ALT/SGPT 41 U/L (16-61); Albumin, Serum 3.6 g/dL (3.2-5.0); Alkaline Phosphatase 137 U/L (45-117); Anion Gap 12 (5-15); BUN 28 mg/dL (7-18); BUN/Creat Ratio 48.4 RATIO (10-20); Chloride 108 mmol/L (98-107); Creatinine, Serum 0.58 mg/dL (0.70-1.30); EST Glomerular Filtration Rate 155 mL/min (>60); Est Glom Filt Rate - Afr Amer 188 mL/min (>60); Globulin 3.1 g/dL (2.2-4.2); Glucose 133 mg/dL (74-106); Protein, Total 6.7 g/dL (6.4-8.2); Sodium Level 140 mmol/L (136-145)
== END 2021-08-19 18:00 | disposition home or self-care (01) ==
LOC: HHLAB 15:28
PROVIDERS: PCP Preventive Medicine Occupational Medicine
DX: M86.9 Osteomyelitis, unspecified (principal)
CPT/HCPCS: 80053; 80202; 85025; 85652

== ENCOUNTER → 2021-09-26 | Outpatient (CLI) | payer BC, MEDICARE, SELFPAY | END | disposition home or self-care (01) | PROVIDERS: PCP Preventive Medicine Occupational Medicine; Referring Provider Urology; Visit Provider Urology | DX: R39.15 Urgency of urination (principal) | CPT/HCPCS: 87086; 87088 ==

== ENCOUNTER → 2021-10-07 | Outpatient (CLI) | payer BC, MEDICARE, SELFPAY ==
[2021-10-13 11:33] LABS: Source Not Provided
[2021-10-13 11:34] LABS: Size 4x3 mm
== END | disposition home or self-care (01) ==
LOC: LABSPEC 16:40
PROVIDERS: PCP Preventive Medicine Occupational Medicine; Visit Provider Urology
DX: N20.0 Calculus of kidney (principal)
CPT/HCPCS: 82360

== ENCOUNTER → 2021-12-26 | Outpatient (CLI) | payer BC, MEDICARE, SELFPAY | END | disposition home or self-care (01) | LOC: LABSPEC 09:44 | PROVIDERS: PCP Preventive Medicine Occupational Medicine; Visit Provider Preventive Medicine Occupational Medicine | DX: L89.319 Pressure ulcer of right buttock, unspecified stage (principal) | CPT/HCPCS: 87070; 87077; 87186; 87205 ==

== ENCOUNTER → 2022-01-29 | Outpatient (CLI) | payer BC, MEDICARE, SELFPAY | END | disposition home or self-care (01) | LOC: LAB 09:00 | PROVIDERS: PCP Preventive Medicine Occupational Medicine; Visit Provider Urology | DX: N30.20 Other chronic cystitis without hematuria (principal) | CPT/HCPCS: 87077; 87086; 87088; 87186 ==

== ENCOUNTER 2022-03-04 08:34 | Outpatient (CLI) | payer BC, MEDICARE, SELFPAY | END 2022-03-04 23:59 | disposition home or self-care (01) | PROVIDERS: PCP Preventive Medicine Occupational Medicine; Referring Provider Preventive Medicine Occupational Medicine; Visit Provider Preventive Medicine Occupational Medicine | DX: L89.319 Pressure ulcer of right buttock, unspecified stage (principal) | CPT/HCPCS: 87070; 87075; 87077; 87186; 87205 ==

== ENCOUNTER → 2022-08-29 | Outpatient (CLI) | payer BC, MEDICARE, SELFPAY | END | disposition home or self-care (01) | LOC: LABSPEC 14:08 | PROVIDERS: PCP Preventive Medicine Occupational Medicine | DX: L89.314 Pressure ulcer of right buttock, stage 4 (principal); G82.53 Quadriplegia, C5-C7 complete; Z93.6 Other artificial openings of urinary tract status; N31.9 Neuromuscular dysfunction of bladder, unspecified; Z87.440 Personal history of urinary (tract) infections; B95.62 Methicillin resistant Staphylococcus aureus infection as the cause of diseases classified elsewhere; Z79.2 Long term (current) use of antibiotics; Z99.3 Dependence on wheelchair; T81.31XA Disruption of external operation (surgical) wound, not elsewhere classified, initial encounter | CPT/HCPCS: 87070; 87077; 87186; 87205 ==

== ENCOUNTER → 2022-12-12 | Outpatient (CLI) | payer BC, MEDICARE, SELFPAY ==
[2022-12-12 11:33] LABS: Mucous, Urine 0 SEEN /hpf (<or=2+); Red Blood Cells-Urine 0 SEEN /hpf (0-5); Squamous Epithelial Cells - UA 0 SEEN /hpf (0-5)
[2022-12-12 12:18] LABS: Color, Urine Yellow (Yellow); Glucose, Dipstick Normal (Normal); Ketone-Dipstick Negative (Negative); Leukocyte Esterase-Dipstick 500 /ul (Negative); Nitrite-Dipstick Positive (Negative); Occult Blood-Urine 25 /ul (Negative); Protein-Dipstick 15 mg/dl (Negative); Specific Gravity, Urine 1.015 (1.002-1.030); Urine Bilirubin Dipstick Negative (Negative); Urine Clarity Sl. Cloudy (Clear); Urine Urobilinogen Normal (Normal)
[2022-12-12 12:23] LABS: White Blood Cells 10-25 SEEN /hpf (0-5)
[2022-12-12 12:24] LABS: Bacteria 1+ /hpf (None Seen)
== END | disposition home or self-care (01) ==
LOC: LABSPEC 11:31
PROVIDERS: PCP Preventive Medicine Occupational Medicine; Visit Provider Preventive Medicine Occupational Medicine
DX: R30.0 Dysuria (principal)
CPT/HCPCS: 81001; 87077; 87086; 87088; 87186

== ENCOUNTER → 2024-09-28 | Outpatient (CLI) | payer BC, MEDICARE, SELFPAY ==
--- NOTE | 2024-09-28 13:53 | MRI_ITS ---
PROCEDURE: LOWER EXT/NO JT/W/O 09/28/2024 REASON FOR EXAM: LEFT THIGH MASS TECHNIQUE: LOWER EXT/NO JT/W/O Multiplanar and multisequence images were obtained without IV contrast administration. COMPARISON: COMPARISON : none FINDINGS: Linear subcutaneous soft tissue thickening and enhancing scars seen along the lateral and posterolateral aspects of the left upper thigh at the level of the femoral greater trochanter. Related thick wall marginally enhancing collection seen along its posterolateral aspect inseparable from the inferior most fibers of the gluteus jose miguel muscle measuring 3 x 1 cm in diameter. Diffuse mixed edema and fatty changes of the left pelvic girdle and thigh muscles. The left femoral head and neck are unremarkable. There is no femoral head collapse. The left femoroacetabular joints space is maintained. Mild left hip joint effusion. No marrow infiltrative lesions Under distended urinary bladder with endoluminal catheter. Normal appearance of the urinary blader. No pathologically enlarged lymph nodes. No pelvic collections. MRI/Lower Ext No Joint W/WO Cont IMPRESSION: Linear subcutaneous soft tissue thickening and enhancing scars seen along the l ateral and posterolateral aspects of the left upper thigh with related thick wall marginally enhancing collection. Diffuse mixed edema and fatty changes of the left pelvic girdle and thigh muscl es. Advise clinical and prior studies correlation. Reading [facility] [address]
== END | disposition home or self-care (01) ==
LOC: OPMRI 13:49
PROVIDERS: Referring Provider Surgery; Visit Provider Surgery
DX: R22.42 Localized swelling, mass and lump, left lower limb (principal)
CPT/HCPCS: 73718; 73720; A9575; A4216

== ENCOUNTER → 2024-12-22 | Outpatient (CLI) | payer BC, MEDICARE, SELFPAY ==
[2024-12-22 12:19] LABS: Color, Urine Straw (Yellow); Glucose, Dipstick Normal (Normal); Ketone-Dipstick Negative (Negative); Leukocyte Esterase-Dipstick 500 /ul (Negative); Nitrite-Dipstick Negative (Negative); Occult Blood-Urine Negative /ul (Negative); Protein-Dipstick Negative (Negative); Specific Gravity, Urine 1.005 (1.002-1.030); Urine Bilirubin Dipstick Negative (Negative)
== END | disposition home or self-care (01) ==
LOC: LABSPEC 09:55
PROVIDERS: Referring Provider Family Medicine; Visit Provider Family Medicine
DX: R39.9 Unspecified symptoms and signs involving the genitourinary system (principal)
CPT/HCPCS: 81002